=== PATIENT | male | born 1965 | race Hispanic/Latino ===

== ENCOUNTER 2022-01-05 19:39 | Observation (INO) | payer OTHER, SELFPAY ==
[2022-01-05] MEDS ORDERED: D10W 250 ML IV ONE (20:12)
[2022-01-05 20:29] LABS: Absolute Lymphocytes (CBC) 2.2 K/uL (0.7-4.9); Hematocrit 30.6 % (39.6-49.0); Lymphocytes % 35.1 % (15.3-44.8); MCV 90.3 fL (80-100); MPV 6.9 fL (7.6-11.3); RBC Red Blood Cell Count 3.38 M/uL (4.33-5.43)
[2022-01-05 20:30] LABS: Protime INR 0.96
[2022-01-05 20:44] LABS: ALT/SGPT 17 U/L (12-78); AST/SGOT 15 U/L (15-37); Albumin 3.6 g/dL (3.4-5.0); Alkaline Phosphatase 84 U/L (45-117); BUN Blood Urea Nitrogen 10 mg/dL (7-18); Bicarbonate 26 mmol/L (21-32); Bilirubin Total 0.2 mg/dL (0.2-1.0); Glomerular Filtration Rate 106 ml/min (=/>90); Glucose Level 64 mg/dL (74-106); Magnesium 2.5 mg/dL (1.8-2.4); NT PRO-BNP 250 pg/mL (<125); Potassium 4.1 mmol/L (3.5-5.1); Protein, Total 7.8 g/dL (6.4-8.2); Sodium Level 138 mmol/L (136-145); Troponin High Sensitivity 4.7 pg/mL (<58.9)
--- NOTE | 2022-01-05 20:46 | RAD REPORT ---
EXAM DESCRIPTION: Ike Single View01/05/2022 8:25 pm CLINICAL HISTORY: Dizziness COMPARISON: none FINDINGS: The lungs appear clear of acute infiltrate. The heart is borderline enlarged IMPRESSION: No acute abnormalities displayed
[2022-01-05 20:48] LABS: Bilirubin Direct < 0.1 mg/dL (0-0.2)
--- NOTE | 2022-01-05 20:48 | RAD REPORT ---
EXAM DESCRIPTION: CT - Head Brain Wo Cont - 01/05/2022 8:41 pm CLINICAL HISTORY: Dizziness COMPARISON: None TECHNIQUE: Computed axial tomography of the head was obtained. IV contrast was not requested. All CT scans are performed using dose optimization technique as appropriate and may include automated exposure control or mA/KV adjustment according to patient size. FINDINGS: An intracranial bleed is not seen . The ventricles are normal in caliber. No extra-axial fluid collection is noted. No significant hypodensity within the brain Fluid within the sinuses/ mastoids is not seen. IMPRESSION: No acute intracranial abnormality is seen. If patient's symptoms persist MRI of the bra in would be recommended.
[2022-01-05] MEDS ORDERED: MECLIZINE HCL 12.5 MG TAB ONE (21:25)
[2022-01-05] MEDS ORDERED: ONDANSETRON 4 MG/2 ML VIAL ONE (21:25)
[2022-01-05] MEDS ORDERED: NA CHLORIDE 0.9% 1,000 ML ONE (21:26)
--- NOTE | 2022-01-05 21:48 | RAD REPORT ---
EXAM DESCRIPTION: Samantha Angio01/05/2022 9:32 pm CLINICAL HISTORY: Dizziness COMPARISON: None TECHNIQUE: 50 cc Isovue 370 was administered intravenously. 3D MIP reconstruction performed All CT scans are performed using dose optimization technique as appropriate and may include automated exposure control or mA/KV adjustment according to patient size. FINDINGS: Calcified plaque distal left common carotid artery resulting in an approximately 40% sten osis Plaque cleft carotid bulb results in an approximately 40% stenosis Calcified plaque distal right common carotid artery results in an approximately 35% stenosis. Mild pl aque left carotid bulb. Mild calcified plaque external carotid arteries. Vertebral arteries are codominant. Mild plaque present No dissection seen IMPRESSION: Mild plaque within the carotid arteries NASCET criteria used. Mild 0-49% stenosis Moderate 50-69% stenosis Severe 70-99% stenosis
--- NOTE | 2022-01-05 21:55 | RAD REPORT ---
EXAM DESCRIPTION: CTHead angio01/05/2022 9:32 pm CLINICAL HISTORY: Dizziness COMPARISON: None TECHNIQUE: CT angiogram of the head was obtained. 3D MIPS reconstruction performed. All CT scans are performed using dose optimization technique as appropriate and may include automated exposure control or mA/KV adjustment according to patient size. FINDINGS: Marked calcified plaque within the distal right internal carotid artery. Moderate calcified plaque within distal left internal carotid artery Anterior cerebral, middle cerebral, posterior cerebral and basilar arteries appear unremarkable. An aneurysm not seen IMPRESSION: Marked calcified plaque distal right internal carotid artery Moderate calcified plaque distal left internal carotid artery
--- NOTE | 2022-01-05 22:50 | EDPHYS ---
Physician Documentation [facility] Name: Maxwell Rascon Age: 56 yrs Sex: Male : 1965 Arrival Date: 01/05/2022 Time: 19:46 Bed 8 Private MD: ED Physician Derrick Valdez HPI: 01/05 20:05 This 56 yrs old Male presents to ER via EMS with complaints of Dizziness. cp 20:05 The patient presents with dizziness, sense of spinning. cp 20:05 Onset: The symptoms/episode began/occurred about 1 hour ago. cp 20:05 Context: occurred at home, suddenly, just prior to the episode the patient experienced cp no apparent symptoms. 20:05 Patient's baseline: Neuro: alert and fully oriented, Motor: no deficits, Ambulation: cp walks with assist only, left lower leg prosthesis, Speech: normal. Patient Vietnamese speaking and family member translating. 20:05 Associated signs and symptoms: Pertinent positives: general weakness, Pertinent cp negatives: abdominal pain, chest pain, confusion, diaphoresis, focal weakness, headache, near-syncope, numbness, palpitations, syncope, vomiting. 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 - Social history:: Smoking status: Patient denies any tobacco usage or history of. ROS: 20:10 Constitutional: Negative for body aches, chills, fever, poor PO intake. cp 20:10 Eyes: Negative for injury, pain, redness, and discharge. cp 20:10 ENT: Negative for drainage from ear(s), ear pain, sore throat, difficulty swallowing, difficulty handling secretions. 20:10 Neck: Negative for pain with movement, pain at rest, stiffness. 20:10 Cardiovascular: Negative for chest pain, edema, palpitations. 20:10 Respiratory: Negative for cough, shortness of breath, wheezing. 20:10 Abdomen/GI: Negative for abdominal pain, vomiting, diarrhea, constipation, black/tarry stool, rectal bleeding. 20:10 Back: Negative for pain at rest, pain with movement. 20:10 : Negative for urinary symptoms. 20:10 Neuro: Positive for dizziness, general weakness, Negative for headache, numbness, speech changes, syncope, tingling. 20:10 All other systems are negative. Exam: 20:12 Constitutional: The patient appears in no acute distress, alert, awake, cp non-diaphoretic, non-toxic, well developed, well nourished. 20:12 Head/Face: Normocephalic, atraumatic. cp 20:12 Eyes: Periorbital structures: appear normal, Pupils: equal, round, and reactive to light and accomodation, Extraocular movements: intact throughout, Conjunctiva: normal, no exudate, no injection, Sclera: no appreciated abnormality, Lids and lashes: appear normal, bilaterally. 20:12 ENT: External ear(s): are unremarkable, Ear canal(s): are normal, TM's: dullness, bilaterally, Nose: is normal, Mouth: Lips: moist, Oral mucosa: pink and intact, moist, Posterior pharynx: Airway: no evidence of obstruction, patent. 20:12 Neck: ROM/movement: is normal, is supple, without pain, no range of motions limitations, no meningismus, no nuchal rigidity. 20:12 Chest/axilla: Inspection: normal, Palpation: is normal, no crepitus, no tenderness. 20:12 Cardiovascular: Rate: normal, Rhythm: regular, Edema: is not appreciated, JVD: is not appreciated. 20:12 Respiratory: the patient does not display signs of respiratory distress, Respirations: normal, no use of accessory muscles, no retractions, labored breathing, is not present, Breath sounds: are clear throughout, no decreased breath sounds, no stridor, no wheezing. 20:12 Abdomen/GI: Inspection: abdomen appears normal, Bowel sounds: active, all quadrants, Palpation: abdomen is soft and non-tender, in all quadrants. 20:12 Back: pain, is absent, ROM is normal. 20:12 Musculoskeletal/extremity: left below the knee amputation. 20:12 Skin: cellulitis, is not appreciated, no rash present. open wound noted to left lower leg amputation site with mild purulent drainage noted, no erythema, non-tender. 20:12 Neuro: Orientation: to person, place \\T\\ time. Mentation: is normal, Cerebellar function: Romberg testing is negative, Motor: moves all fours, general weakness with no focal deficits, Sensation: no obvious gross deficits. 20:32 ECG was reviewed by the Attending Physician. Vital Signs: 19:58 BP 186 / 89; Pulse 79; Resp 16; Temp 98.5(O); Pulse Ox 95% on R/A; Weight 72.57 kg (R); lp1 Height 5 ft. 9 in. (175.26 cm); Pain 0/10; 21:00 BP 121 / 69; Pulse 73; Resp 19; Pulse Ox 99% on R/A; lp1 22:03 Pulse 77; Resp 18; Pulse Ox 98% on R/A; kd3 22:05 BP 123 / 73; kd3 23:00 BP 112 / 67; Pulse 66; Resp 15; Pulse Ox 98% on R/A; lp1 01/06 00:00 BP 139 / 77; Pulse 69; Resp 20; Pulse Ox 100% on R/A; lp1 01:00 BP 115 / 65; Pulse 70; Resp 12; Pulse Ox 98% on R/A; lp1 01/05 19:58 Body Mass Index 23.63 (72.57 kg, 175.26 cm) lp1 NIH Stroke Scale Scores: 01/05 20:15 NIHSS Score: 0 cp MDM: 19:53 Patient medically screened. carolyn 21:00 Differential diagnosis: cardiac arrhythmia, generalized weakness, GI bleed, head cp injury, idiopathic dizziness, vertigo. 22:35 Data reviewed: vital signs, nurses notes, lab test result(s), EKG, radiologic studies, cp CT scan, plain films, I have discussed the patient's presentation/case with the attending Emergency Department Physician;. 22:35 Physician consultation: Roberth Bo MD was called at 22:35, was contacted at 22:35, regarding consult, patient's condition, does not recommend tpa. Recommends to admit for continued observation and MRI in morning. 22:45 Test interpretation: by ED physician or midlevel provider: ECG, plain radiologic cp studies. 22:45 Response to treatment: the patient's symptoms have mildly improved after treatment. Physician consultation: Hayder Khan was contacted at 22:45, regarding admission, to the telemetry unit. 01/05 20:04 Order name: Basic Metabolic Panel; Complete Time: 21:01 01/05 21:01 Interpretation: Normal except: GLUC 64. 01/05 20:04 Order name: CBC with Diff; Complete Time: 21:01 01/05 21:01 Interpretation: Normal except: RBC 3.38; HGB 10.5; HCT 30.6; MPV 6.9. 01/05 20:04 Order name: LFT's; Complete Time: 21: 01/05 20:04 Order name: Magnesium; Complete Time: 21: 01/05 20:04 Order name: NT PRO-BNP; Complete Time: 21: 01/05 20:04 Order name: PT-INR; Complete Time: 21: 01/05 20:04 Order name: Troponin HS; Complete Time: 21: 01/05 20:04 Order name: XRAY Chest (1 view); Complete Time: 21:01 01/05 20:04 Order name: CT Head Brain wo Cont; Complete Time: 21: 01/05 20:04 Order name: Urine Microscopic Only 01/05 20:09 Order name: Glucose, Ancillary Testing; Complete Time: 21:01 EDMS 01/05 20:42 Order name: Glucose, Ancillary Testing; Complete Time: 21:01 EDMS 01/05 22:51 Order name: Glucose, Ancillary Testing EDMS 01/05 23:01 Order name: COVID-19 SARS RT PCR (Document "Date of Onset" if Symptomatic) lp1 01/05 20:04 Order name: EKG; Complete Time: 20:05 01/05 20:04 Order name: Cardiac monitoring; Complete Time: 20:05 01/05 20:04 Order name: EKG - Nurse/Tech; Complete Time: 20:28 01/05 20:04 Order name: IV Saline Lock; Complete Time: 20:05 01/05 20:04 Order name: Labs collected and sent; Complete Time: 20:05 01/05 20:04 Order name: O2 Per Protocol; Complete Time: 20:05 01/05 20:04 Order name: O2 Sat Monitoring; Complete Time: 20:05 01/05 21:04 Order name: CT Head Angio; Complete Time: 22:28 01/05 21:04 Order name: CT Neck Angio; Complete Time: 22:28 cp 01/05 21:04 Order name: Wound dressing: left amputation site; Complete Time: 22:10 cp EC:32 Rate is 72 beats/min. Rhythm is regular. AR interval is prolonged at 220 msec. QRS cp interval is normal. QT interval is normal. T waves are Inverted in leads aVL, aVR. Interpreted by me. Reviewed by me. Administered Medications: 20:19 Drug: D50W 50 ml {Note: D10W is available.} Route: IVP; Site: right antecubital; lp1 21:12 Follow up: Response: Blood sugar is elevated lp1 21:24 Drug: Meclizine 25 mg Route: PO; lp1 22:28 Follow up: Response: No adverse reaction lp1 21:24 Not Given (Patient Refused): Zofran (Ondansetron) 4 mg IVP once; over 2 minutes lp1 21:58 Drug: NS 0.9% 500 ml Route: IV; Rate: bolus; Site: right antecubital; lp1 22:27 Follow up: IV Status: Completed infusion; IV Intake: 500ml lp1 22:28 Drug: NS 0.9% 500 ml Route: IV; Rate: 100 ml/hr; Site: right antecubital; lp1 01/06 01:40 Follow up: IV Status: Infusion continued upon admission lp1 01/05 23:02 Drug: foLIC Acid 1 mg Route: IVPB; Site: right antecubital; lp1 23:40 Follow up: IV Status: Completed infusion; IV Intake: 50ml lp1 23:02 Drug: Aspirin 81 mg Route: PO; lp1 01/06 00:17 Follow up: Response: No adverse reaction lp1 Point of Care Testing: Blood Glucose: 01/05 20:01 Blood Glucose: 65 mg/dL; lp1 Ranges: Critical Glucose Levels:Adult <50 mg/dl or >400 mg/dl <40 mg/dl or >180 mg/dl Disposition Summary: 01/05/22 22:50 Hospitalization Ordered Hospitalization Status: Observation cp Provider: Maycol Serrano cp Location: Telemetry/MedSurg (observation) cp Condition: Stable cp Problem: new cp Symptoms: are unchanged cp Bed/Room Type: Standard cp Room Assignment: 214(01/06/22 00:47) cg Diagnosis - Dizziness and giddiness cp Forms: - Medication Reconciliation Form cp - SBAR form cp NIH Stroke Scale - NIH Stroke Score Date: 01/05/2022 Time: 20:15 Total Score = 0 1a. Level of Consciousness (LOC) - 0(Alert) 1b. Level of Consciousness (LOC) (Month \\T\\ Age) - 0(Both) 1c. LOC Commands (Open \\T\\ Closes Eyes/Tire Mold Tester) - 0(Both) 2. Best Gaze (Lateral Gaze Paresis) - 0(Normal) 3. Visual Field Loss - 0(No visual loss) 4. Facial Palsy - 0(Normal) 5a. Left Arm: Motor (10-second hold) - 0(No drift) 5b. Right Arm: Motor (10-second hold) - 0(No drift) 6a. Left Leg: Motor (5-second hold - always test supine) - 0(No drift) 6b. Right Leg: Motor (5-second hold - always test supine) - 0(No drift) 7. Limb Ataxia (finger/nose \\T\\ heel/aug[place] - test with eyes open) - 0(Absent) 8. Sensory Loss (pinprick arms/legs/face) - 0(Normal) 9. Best Language: Aphasia (description/naming/reading) - 0(No aphasia) 10. Dysarthria (speech clarity - read or repeat words) - 0(Normal) 11. Extinction and Inattention (visual/tactile/auditory/spatial/personal) - 0(No abnormality) Initials: cp Signatures: Dispatcher [employer] EDDerrick Perkins MD MD cha Pena, Laura, RN RN lp1 Derrick Montiel PA PA Cielo Keita, KAREY RN cg Corrections: (The following items were deleted from the chart) 01/06 00:47 01/05 22:50 cp cg 01/06 19:27 01/05 22:30 Physician consultation: Roberth Bo MD was called at 22:30, was cp contacted at 22:30, regarding consult, patient's condition, does not recommend tpa. Recommends to admit for continued observation and MRI in morning, cp
--- NOTE | 2022-01-05 22:50 | ER ---
Nurse's Notes [facility] Name: Maxwell Rascon Age: 56 yrs Sex: Male : 1965 Arrival Date: 01/05/2022 Time: 19:46 Bed 8 Private MD: Diagnosis: Dizziness and giddiness Presentation: 01/05 19:58 Chief complaint: EMS states: Called for patient with onset of dizziness about 45 min lp1 ago; Denies chest pain, shortness of breath, N/V. Onset of symptoms was January 05, 2022. Care prior to arrival: IV initiated. 20 GA, in the right antecubital area, Glucose check: 105. 19:58 Acuity: DANIEL 3 lp1 19:58 Method Of Arrival: EMS: [facility] lp1 20:00 Coronavirus screen: At this time, the client does not indicate any symptoms associated lp1 with coronavirus-19. 20:00 Ebola Screen: No symptoms or risks identified at this time. Initial Sepsis Screen: Does lp1 the patient meet any 2 criteria? No. Patient's initial sepsis screen is negative. Does the patient have a suspected source of infection? No. Patient's initial sepsis screen is negative. Risk Assessment: Do you want to hurt yourself or someone else? Patient reports no desire to harm self or others. 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 - Social history:: Smoking status: Patient denies any tobacco usage or history of. Screenin:15 Abuse screen: Denies threats or abuse. Denies injuries from another. Nutritional lp1 screening: No deficits noted. Tuberculosis screening: No symptoms or risk factors identified. Fall Risk Total Sorto Fall Scale indicates High Risk Score (45 or more points). Fall prevention measures have been instituted. Side Rails Up X 2 As available patient and family educated on Fall Prevention Program and Strategies. Assessment: 20:00 General: Appears in no apparent distress. Behavior is calm, cooperative. Pain: Denies lp1 pain. Neuro: Level of Consciousness is awake, alert, obeys commands, Oriented to person, place, time, situation, Patient is primarily cape verdean speaking . Reports dizziness, since 1 hour ago. Cardiovascular: Patient's skin is warm and dry. Respiratory: Respiratory effort is even, unlabored. GI: Patient currently denies nausea. : No signs and/or symptoms were reported regarding the genitourinary system. EENT: No signs and/or symptoms were reported regarding the EENT system. Derm: Skin is pink, warm \T\ dry. Musculoskeletal: Amputation of L BKA. 20:57 Reassessment: Patient appears in no apparent distress at this time. Patient is alert, lp1 oriented x 3, equal unlabored respirations, skin warm/dry/pink. 22:11 Reassessment: Patient appears in no apparent distress at this time. Patient is alert, lp1 oriented x 3, equal unlabored respirations, skin warm/dry/pink. Patient reports slight dizziness continued Patient denies pain at this time. GI: Patient currently denies nausea. 01/06 00:00 Reassessment: Patient appears in no apparent distress at this time. Patient is alert, lp1 oriented x 3, equal unlabored respirations, skin warm/dry/pink. Patient given sandwich per request. Vital Signs: 01/05 19:58 BP 186 / 89; Pulse 79; Resp 16; Temp 98.5(O); Pulse Ox 95% on R/A; Weight 72.57 kg (R); lp1 Height 5 ft. 9 in. (175.26 cm); Pain 0/10; 21:00 BP 121 / 69; Pulse 73; Resp 19; Pulse Ox 99% on R/A; lp1 22:03 Pulse 77; Resp 18; Pulse Ox 98% on R/A; kd3 22:05 BP 123 / 73; kd3 23:00 BP 112 / 67; Pulse 66; Resp 15; Pulse Ox 98% on R/A; lp1 01/06 00:00 BP 139 / 77; Pulse 69; Resp 20; Pulse Ox 100% on R/A; lp1 01:00 BP 115 / 65; Pulse 70; Resp 12; Pulse Ox 98% on R/A; lp1 01/05 19:58 Body Mass Index 23.63 (72.57 kg, 175.26 cm) lp1 NIH Stroke Scale Scores: 01/05 20:15 NIHSS Score: 0 cp ED Course: 19:46 Patient arrived in ED. mw2 19:51 Derrick Montiel PA is PHCP. cp 19:51 Derrick Valdez MD is Attending Physician. cp 19:58 Guerline Middleton, KAREY is Primary Nurse. lp1 20:00 Triage completed. lp1 20:00 Arm band placed on right wrist. lp1 20:00 Patient has correct armband on for positive identification. Placed in gown. Bed in low lp1 position. Call light in reach. Client placed on continuous cardiac and pulse oximetry monitoring. NIBP monitoring applied. 20:00 Maintain EMS IV. Dressing intact. Good blood return noted. Site clean \T\ dry. Gauge \T\ lp 1 site: 20 g to R AC. 20:25 XRAY Chest (1 view) In Process Unspecified. EDMS 20:42 CT Head Brain wo Cont In Process Unspecified. EDMS 21:34 CT Head Angio In Process Unspecified. EDMS 21:34 CT Neck Angio In Process Unspecified. EDMS 22:10 Wound care: to L BKA site located on left leg was irrigated with normal saline, dressed lp1 with 4x4's, kerlix, LYN bandage . 22:49 Maycol Serrano MD is Hospitalizing Provider. cp 23:00 No provider procedures requiring assistance completed. Patient admitted, IV remains in lp1 place. 23:09 COVID swab sent to lab. lp1 Administered Medications: 20:19 Drug: D50W 50 ml {Note: D10W is available.} Route: IVP; Site: right antecubital; lp1 21:12 Follow up: Response: Blood sugar is elevated lp1 21:24 Drug: Meclizine 25 mg Route: PO; lp1 22:28 Follow up: Response: No adverse reaction lp1 21:24 Not Given (Patient Refused): Zofran (Ondansetron) 4 mg IVP once; over 2 minutes lp1 21:58 Drug: NS 0.9% 500 ml Route: IV; Rate: bolus; Site: right antecubital; lp1 22:27 Follow up: IV Status: Completed infusion; IV Intake: 500ml lp1 22:28 Drug: NS 0.9% 500 ml Route: IV; Rate: 100 ml/hr; Site: right antecubital; lp1 01/06 01:40 Follow up: IV Status: Infusion continued upon admission lp1 01/05 23:02 Drug: foLIC Acid 1 mg Route: IVPB; Site: right antecubital; lp1 23:40 Follow up: IV Status: Completed infusion; IV Intake: 50ml lp1 23:02 Drug: Aspirin 81 mg Route: PO; lp1 01/06 00:17 Follow up: Response: No adverse reaction lp1 Medication: 01/05 20:57 VIS not applicable for this client. lp1 Point of Care Testing: Blood Glucose: 20:01 Blood Glucose: 65 mg/dL; lp1 Ranges: Intake: 22:27 IV: 500ml; Total: 500ml. lp1 23:40 IV: 50ml; Total: 550ml. lp1 Outcome: 22:50 Decision to Hospitalize by Provider. cp 23:01 Condition: stable lp1 23:01 Instructed on the need for admit. 01/06 01:25 Admitted to Med/surg room 214, with chart, Report called to KAREY Shah lp1 01:40 Patient left the ED. lp1 NIH Stroke Scale - NIH Stroke Score Date: 01/05/2022 Time: 20:15 Total Score = 0 1a. Level of Consciousness (LOC) - 0(Alert) 1b. Level of Consciousness (LOC) (Month \T\ Age) - 0(Both) 1c. LOC Commands (Open \T\ Closes Eyes/Apparel Merchandiser) - 0(Both) 2. Best Gaze (Lateral Gaze Paresis) - 0(Normal) 3. Visual Field Loss - 0(No visual loss) 4. Facial Palsy - 0(Normal) 5a. Left Arm: Motor (10-second hold) - 0(No drift) 5b. Right Arm: Motor (10-second hold) - 0(No drift) 6a. Left Leg: Motor (5-second hold - always test supine) - 0(No drift) 6b. Right Leg: Motor (5-second hold - always test supine) - 0(No drift) 7. Limb Ataxia (finger/nose \T\ heel/[place] - test with eyes open) - 0(Absent) 8. Sensory Loss (pinprick arms/legs/face) - 0(Normal) 9. Best Language: Aphasia (description/naming/reading) - 0(No aphasia) 10. Dysarthria (speech clarity - read or repeat words) - 0(Normal) 11. Extinction and Inattention (visual/tactile/auditory/spatial/personal) - 0(No abnormality) Initials: cp Signatures: Dispatcher [employer] Guerline Pereyra RN RN lp1 Derrick Montiel PA PA cp [place], MyKena mw2 Farrah Guillen RN RN kd3
[2022-01-05] MEDS ORDERED: ASPIRIN 81 MG CHEWABLE TABLET ONE (23:03)
[2022-01-05] MEDS ORDERED: FOLIC ACID 5 MG/ML VIAL ONE (23:04)
[2022-01-05] MEDS ORDERED: NA CHLORIDE 0.9% 50 ML ONE (23:04)
--- NOTE | 2022-01-06 00:29 | P.HP ---
Certification for Inpatient Patient admitted to: Observation With expected LOS: <2 Midnights Patient will require the following post-hospital care: None Practitioner: I am a practitioner with admitting privileges, knowledge of patient current condition, hospital course, and medical plan of care. Services: Services provided to patient in accordance with Admission requirements found in Title 42 Section 412.3 of the Code of Federal Regulations <Hayder Khan - Last Filed: 01/06/22 00:22> Patient History Date of Service: 01/06/22 Reason for admission: Dizziness History of Present Illness: 56-year-old male with history of insulin-dependent diabetes, hyperlipidemia, hypertension with left BKA presents the emergency department for dizziness. He reports that his symptoms began around 1900 this evening while he was gathering his belongings in preparation for a physician appointment tomorrow morning, he reports feeling "dizzy" denies sensation of room spinning, nausea, vomiting. His labs were significant for mild normocytic anemia mild hyperglycemia initial glucose of 64 which was treated and has improved he had CT of the head without contrast which was negative for acute findings chest x-ray was unremarkable CTA of the neck demonstrated mild plaque within the carotid arteries CTA of the head revealed marked calcified plaque distal right internal carotid artery moderate calcified plaque distal left internal carotid artery. Patient with no focal neurological deficits at this time he did have a few beats of left beating horizontal nystagmus. He was scheduled to have his stump revised at [facility] at 5 AM this morning, wound to the left lower extremity without surrounding cellulitis, purulent drainage. ED provider discussed case with neurology who recommends patient be admitted to the hospital service and MRI is obtained to rule out CVA. - Past Medical/Surgical History -: Diabetes mellitus type 2insulin-dependent -: Hypertension -: Hyperlipidemia -: Left BKA Psychosocial/ Personal History: Patient is disabled, lives at home with his family - Family History Father -: Diabetes Mother -: Diabetes - Social History Smoking Status: Never smoker Alcohol use: No CD- Drugs: No Caffeine use: Yes Place of Residence: Home <Hayder Khan - Last Filed: 01/06/22 00:22> Date of Service: 01/06/22 <Maycol Serrano - Last Filed: 01/06/22 12:57> Review of Systems 10-point ROS is otherwise unremarkable Neurological: Other (Dizziness), As per HPI <Hayder Khan - Last Filed: 01/06/22 00:22> Physical Examination - Physical Exam General: Alert, In no apparent distress, Oriented x3 HEENT: Atraumatic, PERRLA, Mucous membr. moist/pink, EOMI, Sclerae nonicteric Neck: Supple, 2+ carotid pulse no bruit Respiratory: Clear to auscultation bilaterally, Normal air movement Cardiovascular: Regular rate/rhythm, Normal S1 S2 Capillary refill: <2 Seconds Gastrointestinal: Normal bowel sounds, No tenderness Musculoskeletal: No tenderness, Other (Left BKA) Integumentary: No rashes, Other (Open wound to left BKA site without surrounding cellulitis/erythema/purulent drainage) Neurological: Normal speech, Normal strength at 5/5 x4 extr, Normal tone, Sensation intact, Cranial nerves 3-12 intact, Normal affect - Studies Laboratory Data (last 24 hrs) 01/05/22 19:53: PT 10.6, INR 0.96 01/05/22 19:53: WBC 6.3, Hgb 10.5 L, Hct 30.6 L, Plt Count 327 01/05/22 19:53: Sodium 138, Potassium 4.1, BUN 10, Creatinine 0.74, Glucose 64 L, Magnesium 2.5 H, Total Bilirubin 0.2, AST 15, ALT 17, Alkaline Phosphatase 84 <Hayder Khan - Last Filed: 01/06/22 00:22> - Studies Laboratory Data (last 24 hrs) 01/05/22 19:53: PT 10.6, INR 0.96 01/05/22 19:53: WBC 6.3, Hgb 10.5 L, Hct 30.6 L, Plt Count 327 01/05/22 19:53: Sodium 138, Potassium 4.1, BUN 10, Creatinine 0.74, Glucose 64 L, Magnesium 2.5 H, Total Bilirubin 0.2, AST 15, ALT 17, Alkaline Phosphatase 84 <Maycol Serrano - Last Filed: 01/06/22 12:57> Assessment and Plan - Plan Assessment: Dizziness-rule out CVA Diabetes mellitus type 2insulin-dependent with hypoglycemia Hyperlipidemia Hypertension 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 No focal neurological deficits noted patient with sensation of dizziness, few beats of left beating nystagmus on exam. CTA of the head did demonstrate marked stenosis of the distal right internal carotid artery although there are no focal neurological deficits or CT/MRI evidence of CVA at this time. ED provider discussed case with neurology who recommended MRI. Diabetes mellitus type 2insulin-dependent with hypoglycemia: Patient was treated for low blood sugar of 64 in the ED will encourage him to eat hold off on sliding scale at this time. Patient reports that he only takes his metformin or 70/30 insulin when his blood sugar is high, counseled patient on need to take metformin daily rather than as needed. Hyperlipidemia: Patient unaware of what medications he takes at home, will initiate the atorvastatin until home medications have been verified. Hypertension: Patient unaware of what his home medications are, we will restart when verified. 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 Fuller at [facility]. Family calling to reschedule his procedure, wound appears without acute complications at this time recommend follow-up on outpatient basis. DVT PPX: Lovenox Code status: Full Discharge Plan: Home Plan to discharge in: 24 Hours - Advance Directives Does patient have a Living Will: No Does patient have a Durable POA for Healthcare: No - Code Status/Comfort Care Code Status Assessed: Yes (Full code) Critical Care: No Time Spent Managing Pts Care (In Minutes): 70 <Hayder Khan - Last Filed: 01/06/22 00:22> Physician Review Additional Text: I have personally seen and evaluated Mr. Maxwell Rascon. I reviewed the notes and assessments performed by Hayder Khan NP. I independently performed my own history and physical examination. I agree with the assessment and plan as outlined in his note. I concur with his documentation of Mr. Rascon. <Maycol Serrano - Last Filed: 01/06/22 12:57>
[2022-01-06] MEDS ORDERED: ONDANSETRON 4 MG/2 ML VIAL IV PRN (01:26)
[2022-01-06 01:58] VITALS: BMI 23.6
[2022-01-06 02:02] VITALS: TEMP 97.3
[2022-01-06 02:48] VITALS: O2SAT 98
[2022-01-06 04:39] LABS: Hematocrit 30.2 % (39.6-49.0); Lymphocytes % 35.9 % (15.3-44.8); MCV 92.3 fL (80-100); MPV 6.9 fL (7.6-11.3); RBC Red Blood Cell Count 3.27 M/uL (4.33-5.43)
[2022-01-06 05:02] LABS: Albumin 3.1 g/dL (3.4-5.0); Bilirubin Total 0.2 mg/dL (0.2-1.0); Magnesium 2.4 mg/dL (1.8-2.4); Potassium 4.1 mmol/L (3.5-5.1); Protein, Total 6.9 g/dL (6.4-8.2); Troponin High Sensitivity 6.4 pg/mL (<58.9)
[2022-01-06] MEDS: INSULIN -REGULAR HUMAN 50 UNIT/0.5 ML ML SQ SCH ×2 (07:30→11:30)
[2022-01-06] MEDS ORDERED: ASPIRIN EC 81 MG TAB PO SCH (09:00)
[2022-01-06] MEDS ORDERED: FOLIC ACID 1 MG TABLET PO SCH (09:00)
[2022-01-06] MEDS ORDERED: ENOXAPARIN 40 MG/0.4 ML SQ SCH (09:00)
[2022-01-06] MEDS ORDERED: PNEUMOCOCCAL VACCINE 0.5 ML IMVAC ONE (09:00)
--- NOTE | 2022-01-06 09:05 | RAD REPORT ---
EXAM DESCRIPTION: MRI - Brain W/Wo Cont - 01/06/2022 8:25 am CLINICAL HISTORY: dizziness Headache, CVA symptomology COMPARISON: MRA Head Wo Cont dated 01/06/2022; MRA Neck W/Wo Cont dated 01/06/2022; Head angio dated 01/05; Neck Angio dated 01/05/2022; Head Brain Wo Cont dated 01/05/2022 TECHNIQUE: Multi-sequence, multiplanar MR imaging of the brain was performed with contrast. FINDINGS: No intracranial hemorrhage, hydrocephalus, or extra-axial fluid collection.Mild brain atro phy. No edema or shift of midline structures. No intracranial mass. DWI is negative for acute CVA. The midline structures are normally formed. Mastoid air cells and paranasal sinuses are clear. Post-contrast images show no abnormal enhancement to suggest tumor or infection. IMPRESSION: Negative for acute CVA or other acute intracranial process. No pathologic post-contrast enhancement suspected.
--- NOTE | 2022-01-06 09:05 | RAD REPORT ---
EXAM DESCRIPTION: MRI - MRA Head Wo Cont - 01/06/2022 8:25 am CLINICAL HISTORY: dizziness CVA COMPARISON: Head angio dated 01/05/2022 FINDINGS: 3D noncontrast [id number] MR angiography of the [place] was performed. No aneurysm, flow-limiting stenosis or vascular malformation is seen. No large vessel occlusion ident ified. Forward flow seen in codominant vertebral arteries. The visualized dural venous sinuses appear patent. IMPRESSION: No significant flow abnormality of the [place] is identified.
--- NOTE | 2022-01-06 09:07 | RAD REPORT ---
EXAM DESCRIPTION: MRI - MRA Neck W/Wo Cont - 01/06/2022 8:24 am CLINICAL HISTORY: dizziness Headache, drowsiness, dizziness COMPARISON: Neck Angio dated 01/05/2022 FINDINGS: Contrast enhance 2D [id number] MR angiography of the neck vessels was performed. A left aortic arch is present. Normal branching pattern of the great vessels is noted. Stenosis is present involving the right carotid bulb estimated at 50-60% based on NASCET criteria. Stenosis involving the left carotid bulb is estimated at less than 50% based on NASCET criteria. Antegrade flow is seen in both vertebral arteries which appear largely codominant. IMPRESSION: Mild stenosis involving both carotid bulbs as detailed.
--- NOTE | 2022-01-06 10:43 | P.DS ---
Admission Date: 01/06/22 Discharge Date: 01/06/22 Disposition: ROUTINE DISCHARGE Discharge Condition: GOOD Reason for Admission: Dizziness Consultations: 1. Neurology Hospital Course: DIAGNOSES: # Bilateral Carotid Artery Stenosis # Suspect Benign Positional Paroxysmal Vertigo # Insulin-Dependent Diabetes Mellitus # Hypertension # Hyperlipidemia # S/P Left BKA with chronic wound HOSPITAL COURSE: Mr. Maxwell Rascon is a pleasant 56 year old male with a past medical history significant for insulin-dependent diabetes, hyperlipidemia, hypertension s/p left BKA who was admitted to the [facility] on 01/06/2022 for dizziness. Upon presentation, his vital signs and laboratory studies were fairly unremarkable. He was admitted to exclude cerebrovascular accident as the etiology of his dizziness. CT head revealed, "no acute intracranial abnormality is seen. If patient's symptoms persist MRI of the brain would be recommended." CT angiogram of the head revealed, "marked calcified plaque distal right internal carotid artery. Moderate calcified plaque distal left internal carotid artery." CT angiogram of the neck revealed, "mild plaque within the carotid arteries." MRI brain revealed, "negative for acute CVA or other acute intracranial process. No pathologic post-contrast enhancement suspected." MR angiogram of the brain revealed, "no significant flow abnormality of the [place] is identified. MR angiogram of the neck revealed, "mild stenosis involving both carotid bulbs as detailed." Although horizontal nystagmus was reported by the admitting provider, this was not appreciated on my examination this morning. Neurology was consulted and I spoke with Dr. Bo. He feels that the symptoms are likely peripheral in nature as the neurologic imaging is not suggestive of a central etiology of dizziness. He has cleared him for discharge and will have him follow-up in his clinic in 1 to 2 weeks. On 01/06/2022, he was seen on morning rounds and deemed medically stable for discharge. He was discharged on aspirin and atorvastatin. He was discharged with instructions to schedule follow-up appointments with his PCP in 3-5 days and with Neurology in 1-2 weeks. He and his family members were given the opportunity to ask questions and reported no further questions. Furthermore, all questions were answered to the best of my ability. Today, I personally spent 25 minutes with him, of which greater than 50% of the time was spent in patient education, counseling, and coordination of care as described above. Vital Signs/Physical Exam: Temp Pulse Resp BP Pulse Ox 97.3 F 63 18 173/80 H 100 01/06/22 08:00 01/06/22 08:00 01/06/22 08:00 01/06/22 08:00 01/06/22 08:00 General: Alert, In no apparent distress, Oriented x3 HEENT: Atraumatic Neck: Supple, Without JVD or thyroid abnormality Respiratory: Clear to auscultation bilaterally, Normal air movement Cardiovascular: Regular rate/rhythm, Normal S1 S2, No gallops, No rubs, No murmurs Gastrointestinal: Normal bowel sounds, Soft and benign, No tenderness, No rebound, No guarding Musculoskeletal: Other (s/p left BKA) Integumentary: Other (chronic wound on BKA stump. Small wound with granulation tissue noted.) Neurological: Normal speech, Normal strength at 5/5 x4 extr, Normal tone, Sensation intact, Cranial nerves 3-12 intact, Normal affect Laboratory Data at Discharge: WBC 5.5 K/uL (4.3-10.9) 01/06/22 04:18 Hgb 10.2 g/dL (13.6-17.9) L 01/06/22 04:18 Hct 30.2 % (39.6-49.0) L 01/06/22 04:18 Plt Count 306 K/uL (152-406) 01/06/22 04:18 PT 10.6 SECONDS (9.5-12.5) 01/05/22 19:53 INR 0.96 01/05/22 19:53 Sodium 135 mmol/L (136-145) L 01/06/22 04:18 Potassium 4.1 mmol/L (3.5-5.1) 01/06/22 04:18 BUN 9 mg/dL (7-18) 01/06/22 04:18 Creatinine 0.76 mg/dL (0.55-1.3) 01/06/22 04:18 Glucose 194 mg/dL (74-106) H 01/06/22 04:18 Magnesium 2.4 mg/dL (1.8-2.4) 01/06/22 04:18 Total Bilirubin 0.2 mg/dL (0.2-1.0) 01/06/22 04:18 AST 11 U/L (15-37) L 01/06/22 04:18 ALT 14 U/L (12-78) 01/06/22 04:18 Alkaline Phosphatase 82 U/L (45-117) 01/06/22 04:18 Home Medications: Aspirin [Aspirin EC 81 MG] 81 mg PO DAILY #30 tablet. 01/06/22 Atorvastatin Calcium [Lipitor] 40 mg PO BEDTIME #30 tab 01/06/22 New Medications: Aspirin [Aspirin EC 81 MG] 81 mg PO DAILY #30 tablet. Atorvastatin Calcium [Lipitor] 40 mg PO BEDTIME #30 tab Physician Discharge Instructions: 1. Please schedule follow-up with your PCP in 3-5 days 2. Please schedule follow-up with Neurology in 5-7 days Followup: Roberth Bo MD [ASSOCIATE-ACTIVE - CAN ADMIT] - Jerry Patrick MD [Primary Care Provider] -
[2022-01-06 13:24] VITALS: BP 167/93
[2022-01-06] MEDS ORDERED: ATORVASTATIN 40 MG TAB PO SCH (21:00)
--- NOTE | 2022-01-09 13:59 | EKG ---
Test Date: 2022-01-05 Test Time: 20:27:25 Primary Teaching Assistant: DREW MEASUREMENT RESULTS: Intervals: Rate: 72 MA: 220 QRSD: 94 QT: 418 QTc: 457 [place]: P: 74 MA: 220 QRS: 63 T: 78 INTERPRETIVE STATEMENTS: Sinus rhythm with 1st degree AV block Otherwise normal ECG No previous ECG available for comparison Electronically Signed On 01-09-22 13:51:42 CDT by David Jeronimo
--- NOTE | 2022-01-12 07:02 | EEG ---
CHART: [id number] TEST ID#: [id number] DATE OF STUDY: 01/06/2022 THE EEG WAS RECORDED PORTABLE IN THE PATIENT'S ROOM ON A 17 CHANNEL MACHINE. ELECTRODES WERE APPLIED IN THE USUAL MANNER USING THE INTERNATIONAL 10-20 SYSTEM. THE WAKING BACKGROUND RHYTHM IN THIS RECORD CONSISTS OF VERY WELL DEVELOPED AND WELL ORGANIZED WAVES OF 10 HZ., MAXIMAL IN THE POSTERIOR HEAD REGIONS WHICH ATTENUATE NORMALLY WITH EYE OPENING. LOW-VOLTAGE 18-22 HZ ACTIVITY IS EXPRESSED IN THE FRONTAL REGIONS. THERE ARE NO FOCAL OR LATERALIZING FEATURES. NO EPILEPTIFORM ACTIVITY APPEARS. SLEEP OCCURRED NATURALLY. IN ADDITION TO NORMAL SLEEP PATTERNS ARE PRESENT. HYPERVENTILATION WAS NOT PERFORMED. PHOTIC STIMULATION PRODUCED FAIR DRIVING BILATERALLY. IMPRESSION: NORMAL EEG FOR THE AGE OF THE PATIENT IN [place], DROWSINESS AND SLEEP.
== END 2022-01-06 14:50 | disposition home or self-care (01) ==
LOC: ER 19:39 → ERHOLD 01-06 00:29 → 2ND 01-06 01:24
PROVIDERS: ADMIT Internal Medicine; ATTEND Internal Medicine
DX: R42 Dizziness and giddiness (principal); I65.23 Occlusion and stenosis of bilateral carotid arteries; E11.649 Type 2 diabetes mellitus with hypoglycemia without coma; I10 Essential (primary) hypertension; E78.5 Hyperlipidemia, unspecified; S81.002A Unspecified open wound, left knee, initial encounter; Z89.512 Acquired absence of left leg below knee; Z23 Encounter for immunization; Z20.822 Contact with and (suspected) exposure to COVID-19; Z79.4 Long term (current) use of insulin
CPT/HCPCS: 96365; 96361; 93005; 95819; 85025 ×2; 80048; 36415; 83735 ×2; 85610; 82947 ×6; 80076; 84484 ×3; 80053; 83880; 70450; 70496; 70498; 71045; 90471; 70553; 70544; 70549; 90732; 96375; 99285; U0003; Q9967; A9577; J8597; J1650; J7030; G0378 ×2; J2405

== ENCOUNTER 2022-05-13 23:49 | Observation (INO) | payer OTHER ==
--- OUTSIDE RECORDS SUMMARY | 2022-05-14 00:36 | XMS REPORT | Continuity of Care Document ---
:1965 Author Organization [facility] t Address [address] [place] [address] Dr. Ven[address]. [address] [place] [address] Care Team Providers Name Role Phone PCP, PATIENT DOES NOT HAVE A Primary Care Physician UnavailISRAEL Awan Attending Clinician Unavailable Manan EDEN, María Attending Clinician Unavailable Paulo GRIMES, Shankar Dueñas Attending Clinician Cris Ramirez MD Attending Clinician Dimitrios Ray MD Attending Clinician Maikel Hays MD Attending Clinician Ashtyn Pedersen MD Attending Clinician Holger Gray MD Attending Clinician Malick Terry MD Attending Clinician Shankar Oreilly CRNA Attending Clinician Art Terry MD Attending Clinician [phone] JERONIMO HA Attending Clinician Unavailable Dilcia GRIMES, Jeronimo Calderon Attending Clinician [phone] Israel Singletary MD Attending Clinician Eden Fuller MD Attending Clinician EDEN FULLER Attending Clinician Unavailable Doctor Unassigned, [place] Attending Clinician Unavailable Muna Solo RN Attending Clinician Unavailable Only, Ang Db Test Attending Clinician Unavailable Olimpia Bhardwaj MD Attending Clinician OLIMPIA BHARDWAJ Attending Clinician Unavailable CelinaJohnpeyton Mike Attending Clinician JERRICA PEOPLES Attending Clinician Unavailable Shelton GRIMES, Jerrica Mauricio Attending Clinician Jeff EDEN, Sindhu Attending Clinician Unavailable Felicita Bartholomew MD Attending Clinician Suzette Jolley RN Attending Clinician Unavailable KEISHA MENG Attending Clinician Unavailable Green ASSISTANT GM OF CONTENT & DELIVERY, Keisha Attending Clinician [facility], [facility] Attending Clinician Unavailable Kanu Balbuena MD Attending Clinician KANU BALBUENA Attending Clinician Unavailable FELICITA MALIK Attending Clinician Unavailable Felicita Malik DO Attending Clinician Nurse, Adc Pob Immunization Attending Clinician Unavailable Jeronimo Daley DO Attending Clinician JERONIMO DALEY Attending Clinician Unavailable Unknown, Attending Attending Clinician Unavailable UNKNOWN, ATTENDING Attending Clinician Unavailable Jp Quinteros RN Attending Clinician Unavailable MICKIE BRAND Attending Clinician Unavailable ISRAEL SINGLETARY Admitting Clinician Unavailable DIMITRIOS RAY Admitting Clinician Unavailable EDEN FULLER Admitting Clinician Unavailable Eden Fuller MD Admitting Clinician JERONIMO HA Admitting Clinician Unavailable JERRICA PEOPLES Admitting Clinician Unavailable Israel Singletary MD Admitting Clinician Payers Payer Name Policy Type Policy Number Effective Date Expiration Date S Counts include 234 beds at the [facility] [id number] 2021 CHOICE 00:00:00 HIM BCBS BLUE [id number] 2020 ADVANTAGE HMO 00:00:00 MEDICAID 365 [id number] 2020 2020 VENDOR 00:00:00 00:00:00 Problems Condition Condition Condition Status Onset Resolution Last Treating Co mments Source Name Details Category Date Date Treatment Clinician Date 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 Added automatic ally from request for surgery [id number] BKA stump BKA stump Disease Active Uni vers complicati complicati 02-20 it y of on on 00:00: [address] Diabetic Diabetic Disease Active Unive rs foot foot 11-05 ity of infection infection 00:: [address] Burn Burn Disease Active 2019-07 Univers 08-29 ity of 00:00: [address] [place] [address] Allergies, Adverse Reactions, Alerts Allergy Allergy Status Severity Reaction(s) Onset Inactive Treating Comm ents Source Name Type Date Date Clinician NO KNOWN Drug Active Univers ALLERGIE Class ity of S [facility] Social History Social Habit Start Date Stop Date Quantity Comments Source History of tobacco Current smoker Un iversity of use [facility] Alcohol intake 2022-04-14 2022-04-14 Current drinker Metho dist 00:00:00 00:00:00 of [facility] (finding) Alcohol Comment 2022-03-30 2022-03-30 On the weekends Meth odist 00:00:00 00:00:00 Hospital Tobacco use and 2022-03-30 2022-03-30 Smokeless [facility] exposure 00:00:00 00:00:00 tobacco non-user Hospital Exposure to 2022-03-12 2022-03-22 Not sure University of SARS-CoV-2 (event) 00:00:00 12:17:00 [facility] Cigarettes smoked 2022-02-03 2022-02-03 Univers ity of current (pack per 00:00:00 00:00:00 [facility]) - Reported Branch Cigarette 2022-02-03 2022-02-03 University of pack-years 00:00:00 00:00:00 [facility] History SDOH 2020-06-28 2020-06-28 5 University o f Alcohol Frequency 00:00:00 00:00:00 [facility] History [facility] 2020-06-28 2020-06-28 1 University o Alcohol Std Drinks 00:00:00 00:00:00 [place] [facility] History [facility] 2020-06-28 2020-06-28 2 [place] o Alcohol Binge 00:00:00 00:00:00 [place] [facility] Education 2020-06-28 2020-06-28 12 [place] [facility] 00:00:00 00:00:00 [place] [facility] History [facility] 2020-06-28 2020-06-28 1 [place] o Financial 00:00:00 00:00:00 [place] [facility] History [facility] Food 2020-06-28 2020-06-28 1 Univers ity of Worry 00:00:00 00:00:00 [place] [facility] History [facility] Food 2020-06-28 2020-06-28 1 Univers ity of Scarcity 00:00:00 00:00:00 [place] [facility] History [facility] 2020-06-28 2020-06-28 2 [place] o Transport Med 00:00:00 00:00:00 [place] [facility] History [facility] 2020-06-28 2020-06-28 2 [place] [facility] Transport Non-Med 00:00:00 00:00:00 [facility] Sex [facility]igned At [birth year] [facility] 00:[facility]:00 [facility]:00 Hospital Smoking Status Start Date Stop Date Source Never smoked tobacco [facility] Ex-smoker 2022-02-21 00:00:00 2022-02-21 [place] [facility] 00:00:00 Medical Branch Occasional tobacco 2022-02-03 00:00:00 [facility] smoker Medical Branch Medications Ordered Filled Start Stop Current Ordering Indication Dosage Frequency Signature Comments Components Source Medication Medication Date Date Medication? Clinician (SIG) Name Name metFORMIN 2021-07 Yes 850mg Q.5D Take 1 Metho di (GLUCOPHAGE 0-[address] ) 850 mg 15:26: (850 mg Hospit a tablet 01 total) by l mouth 2 (two) times a day with meals. ascorbic 2021-07 Yes 500mg QD Take 1 Method i acid, 0-[address] vitamin C, 15:26: (500 mg Hosp meme (VITAMIN C) 01 total) by l 500 MG mouth tablet daily. cyanocobala 2021-07 Yes 1{tbl} QD Take 1 Me thodi min, 0-[address] vitamin 15:26: mouth Hospita B-12, 01 daily. l (VITAMIN B-12 ORAL) cholecalcif 2021-07 Yes 1{tbl} QD Take 1 Me thodi val, 0-[address] vitamin D3, 15:26: mouth Hospi ta (VITAMIN D3 01 daily. l ORAL) ferrous 2021-07 Yes 325mg QD Take 1 Methodi sulfate 325 0-[address] (65 FE) MG 15:26: (325 mg Hosp meme tablet 01 total) by l mouth daily with breakfast. atorvastati 2021-07 Yes 40mg QD Take 1 Meth ubaldo n (LIPITOR) 0-19 tablet (40 st 40 mg 15:26: mg total) Hospita tablet 01 by mouth l nightly. insulin 2021-07 Yes 4U Q.5D Inject 4-8 Meth ubaldo 70/30 NPH 0-[address] and regular 15:26: under the H ospita human 01 skin 2 l (HumuLIN (two) 70/30) 100 times a unit/mL day before (70-30) meals. injection metFORMIN 2021-07- No 1000mg Q.5D Take 1 Met hodi (GLUCOPHAGE 0-19 09-[address] ) 1,000 mg 15:26: 00:00 (1,000 mg H ospita tablet 01 :00 total) by l mouth 2 (two) times a day with meals. HYDROcodone 2021-07 Yes 1{tbl} Q4H Take 1 M ethodi -acetaminop 0-[address] hen (NORCO) 00:00: mouth Hospi ta 10-325 mg 00 every 4 l per tablet (four) hours as needed for severe pain .acute pain. Max Daily Amount: 6 tablets metoprolol 2021-07- Yes 12.5mg Q.5D Take 0.5 Methodi tartrate 0-18 11-[address] (LOPRESSOR) 00:00: 05:59 (12.5 mg H ospita 25 mg 00 :00 total) by l tablet mouth 2 (two) times a day for 30 days. cefepime 2021-07- Yes 1g Q8H Infuse 1 g Me thodi (MAXIPIME) 0-18 11-[address] 1 gram in 00:00: 05:59 venous Hospi ta 50 mL 00 :00 catheter l Mini-Bag every 8 Plus (eight) hours for 28 days. silver 2021- No [id number] 1{appli 1 Un annabel nitrate 03-23 cator} Applicator ity of applicator 00:30: 18:15 , Topical, [place] 1 00 :00 ONCE, 1 Medical Applicator dose, On [facility] 03/22/22 at 1930, Routine morpHINE (4 2021- Yes 4mg 4 mg, Slow Univers mg/mL) 02-24 IV Push, ity of injection 4 17:00: 04:59 [place]CE[place] 1 [place] mg 00 :[place] dose, On Medical Fri Branch 02/24/22 at 1200, Routine, DSU Recovery morpHINE (4 2021- No 4mg 4 mg, Slow Univers mg/mL) 02-24 IV Push, ity of injection 4 17:00: 19:00 [place]CE, 1 [place] mg 00 :01 dose, On Medical Fri Branch 02/24/22 at 1200, Routine, DSU Recovery HYDROcodone Yes 1{tbl} 1 tablet, Univers -acetaminop 02-24 Oral, PRN, it y of hen (NORCO 16:23: 1 dose, [place] 5) 5-325 mg 00 Starting Medi alexis tablet 1 on Fri Branch tablet 02/24/22 at 1123, Until Discontinu ed, Routine, Pain (scale 4-6), DSU Recovery acetaminoph Yes 650mg 650 mg, Un annabel en 02-24 Oral, PRN, ity of (TYLENOL) 16:23: 1 dose, [place] tablet 650 00 Starting Medic al mg on Fri Branch 02/24/22 at 1123, Until Discontinu ed, Routine, Pain (scale 1-3), DSU Recovery HYDROcodone 2021- No 1{tbl} 1 tablet, Univers -acetaminop 02-24 Oral, PRN, i ty of hen (NORCO 16:23: 19:00 1 dose, [place] as 5) 5-325 mg 00 :01 Starting Medi alexis tablet 1 on Fri Branch tablet 02/24/22 at 1123, Until 02/24/22 at 1400, Routine, Pain (scale 4-6), DSU Recovery acetaminoph 2021-0 2021- No 650mg 650 mg, U nivers en 02-24 Oral, PRN, ity of (TYLENOL) 16:23: 19:00 1 dose, [place] tablet 650 00 :01 Starting Medic al mg on Fri Branch 02/24/22 at 1123, Until Sun02/24/22 at 1400, Routine, Pain (scale 1-3), DSU Recovery lactated 2021-0 Yes 1000mL at 75 Univer s ringers IV 8-26 mL/hr, ity of infusion 16:15: 1,000 mL[place] 1,000 mL 00 IV Medical Infusion, Branch CONTINUOUS , Starting on Sun02/24/22 at 1115, Until Discontinu ed, Routine, PACU lactated 2021-0 2021- No 1000mL at 75 Unive rs ringers IV 02-24 mL/hr, ity of infusion 16:15: 19:00 1,000 mL, [place] as 1,000 mL 00 :01 IV Medical Infusion, Branch CONTINUOUS , Starting on Sun02/24/22 at 1115, Until Sun02/24/22 at 1400, Routine, PACU HYDROmorphO 2021-0 Yes .2mg 0.2 mg, Uni vers ne 02-24 Slow IV ity of (DILAUDID) 16:07: Push, [place] injection 33 Q5MIN PRN, Medi alexis 0.2 mg 10 doses, Branch Starting on Sun02/24/22 at 1107, Until Discontinu ed, Routine, Pain (scale 7-10), PACU
Us e approved by (Faculty): PACU USE -ANESTHESI A SERVICE-HY DROMORPHON E INJECTIONS FENTanyl PF Yes 25ug 25 mcg, Uni vers (SUBLIMAZE 02-24 Slow IV ity of (PF)) 16:07: Push, [place] injection 33 Q5MIN PRN, Medi alexis 25 mcg 4 doses, Branch Starting on Sun02/24/22 at 1107, Until Discontinu ed, Routine, Pain (scale 4-6), PACU HYDROmorphO 0 2021- No .2mg 0.2 mg, Un annabel ne 02-24 Slow IV ity of (DILAUDID) 16:07: 19:00 Push, [place] injection 33 :01 Q5MIN PRN, Medi alexis 0.2 mg 10 doses, Branch Starting on Sun02/24/22 at 1107, Until Sun02/24/22 at 1400, Routine, Pain (scale 7-10), PACU
Us e approved by (Faculty): PACU USE -ANESTHESI A SERVICE-HY DROMORPHON E INJECTIONS FENTanyl PF 2021- No 25ug 25 mcg, Un annabel (SUBLIMAZE 02-24 Slow IV ity o f (PF)) 16:07: 19:00 Push, [place] injection 33 :01 Q5MIN PRN, Medi alexis 25 mcg 4 doses, Branch Starting on Sun02/24/22 at 1107, Until Sun02/24/22 at 1400, Routine, Pain (scale 4-6), PACU EPINEPHrine 2021- No PRN, Unive rs (For 02-24 Starting ity of Irrigation 15:36: 16:54 on Sun s Only) 00 :04 02/24/22 at Medical syringe 1036, Branch Until Sun02/24/22 at 1154, Routine, Intra-op metFORMIN 0 Yes 1000mg Take 1,000 Univers 1,000 mg 8-26 mg by ity of tablet 11:54: mouth 2 [place] 53 (two) Medical times Branch daily with meals. atorvastati Yes 40mg Take 40 mg Univers n 40 mg 8-26 by mouth ity of tablet 11:54: at [place] 53 bedtime. Medical Branch aspirin 325 Yes 325mg Take 325 U nivers mg tablet 8-26 mg by ity of 11:54: mouth [place] 53 daily. Medical Branch ascorbic 0 Yes 1{capsu Take 1 Univ ers acid 8-26 le} capsule by ity of (VITAMIN C 11:54: mouth [place] ORAL) 53 daily. Medical Branch cyanocobala Yes 1{capsu Take 1 U nivers min, 8-26 le} capsule by ity of vitamin 11:54: mouth [place] B-12, 53 daily. Medical (VITAMIN Branch B-12 ORAL) metFORMIN Yes 1000mg Take 1,000 Univers 1,000 mg 8-26 mg by ity of tablet 11:54: mouth 2 [place] 53 (two) Medical times Branch daily with meals. atorvastati Yes 40mg Take 40 mg Univers n 40 mg 8-26 by mouth ity of tablet 11:54: at [place] 53 bedtime. Medical Branch aspirin 325 Yes 325mg Take 325 U nivers mg tablet 8-26 mg by ity of 11:54: mouth [place] 53 daily. Medical Branch ascorbic Yes 1{capsu Take 1 Univ ers acid 8-26 le} capsule by ity of (VITAMIN C 11:54: mouth [place] ORAL) 53 daily. Medical Branch cyanocobala Yes 1{capsu Take 1 U nivers min, 8-26 le} capsule by ity of vitamin 11:54: mouth [place] B-12, 53 daily. Medical (VITAMIN Branch B-12 ORAL) metFORMIN Yes 1000mg Take 1,000 Univers 1,000 mg 8-26 mg by ity of tablet 11:54: mouth 2 [place] 53 (two) Medical times Branch daily with meals. atorvastati Yes 40mg Take 40 mg Univers n 40 mg 8-26 by mouth ity of tablet 11:54: at [place] 53 bedtime. Medical Branch aspirin 325 Yes 325mg Take 325 U nivers mg tablet 8-26 mg by ity of 11:54: mouth [place] 53 daily. Medical Branch ascorbic Yes 1{capsu Take 1 Univ ers acid 8-26 le} capsule by ity of (VITAMIN C 11:54: mouth [place] ORAL) 53 daily. Medical Branch cyanocobala Yes 1{capsu Take 1 U nivers min, 8-26 le} capsule by ity of vitamin 11:54: mouth [place] B-12, 53 daily. Medical (VITAMIN Branch B-12 ORAL) metFORMIN Yes 1000mg Take 1,000 Univers 1,000 mg 8-26 mg by ity of tablet 11:54: mouth 2 [place] 53 (two) Medical times Branch daily with meals. atorvastati Yes 40mg Take 40 mg Univers n 40 mg 8-26 by mouth ity of tablet 11:54: at [place] 53 bedtime. Medical Branch aspirin 325 Yes 325mg Take 325 U nivers mg tablet 8-26 mg by ity of 11:54: mouth [place] 53 daily. Medical Branch ascorbic Yes 1{capsu Take 1 Univ ers acid 8-26 le} capsule by ity of (VITAMIN C 11:54: mouth [place] ORAL) 53 daily. Medical Branch cyanocobala Yes 1{capsu Take 1 U nivers min, 8-26 le} capsule by ity of vitamin 11:54: mouth [place] B-12, 53 daily. Medical (VITAMIN Branch B-12 ORAL) metFORMIN Yes 1000mg Take 1,000 Univers 1,000 mg 8-26 mg by ity of tablet 11:54: mouth 2 [place] 53 (two) Medical times Branch daily with meals. atorvastati Yes 40mg Take 40 mg Univers n 40 mg 8-26 by mouth ity of tablet 11:54: at [place] 53 bedtime. Medical Branch aspirin 325 Yes 325mg Take 325 U nivers mg tablet 8-26 mg by ity of 11:54: mouth [place] 53 daily. Medical Branch ascorbic Yes 1{capsu Take 1 Univ ers acid 8-26 le} capsule by ity of (VITAMIN C 11:54: mouth [place] ORAL) 53 daily. Medical Branch cyanocobala Yes 1{capsu Take 1 U nivers min, 8-26 le} capsule by ity of vitamin 11:54: mouth [place] B-12, 53 daily. Medical (VITAMIN Branch B-12 ORAL) metFORMIN Yes 1000mg Take 1,000 Univers 1,000 mg 8-26 mg by ity of tablet 11:54: mouth 2 [place] 53 (two) Medical times Branch daily with meals. atorvastati Yes 40mg Take 40 mg Univers n 40 mg 8-26 by mouth ity of tablet 11:54: at [place] 53 bedtime. Medical Branch aspirin 325 Yes 325mg Take 325 U nivers mg tablet 8-26 mg by ity of 11:54: mouth [place] 53 daily. Medical Branch ascorbic Yes 1{capsu Take 1 Univ ers acid 8-26 le} capsule by ity of (VITAMIN C 11:54: mouth [place] ORAL) 53 daily. Medical Branch cyanocobala 2022-0 Yes 1{capsu Take 1 U nivers min, 8-26 le} capsule by ity of vitamin 11:54: mouth [place] B-12, 53 daily. Medical (VITAMIN Branch B-12 ORAL) metFORMIN Yes 1000mg Take 1,000 Univers 1,000 mg 8-26 mg by ity of tablet 11:54: mouth 2 [place] 53 (two) Medical times Branch daily with meals. atorvastati Yes 40mg Take 40 mg Univers n 40 mg 8-26 by mouth ity of tablet 11:54: at [place] 53 bedtime. Medical Branch aspirin 325 Yes 325mg Take 325 U nivers mg tablet 8-26 mg by ity of 11:54: mouth [place] 53 daily. Medical Branch ascorbic Yes 1{capsu Take 1 Univ ers acid 8-26 le} capsule by ity of (VITAMIN C 11:54: mouth [place] ORAL) 53 daily. Medical Branch cyanocobala Yes 1{capsu Take 1 U nivers min, 8-26 le} capsule by ity of vitamin 11:54: mouth [place] B-12, 53 daily. Medical (VITAMIN Branch B-12 ORAL) HYDROcodone 2021- Yes [id number] 1{tbl} Take 1 U nivers -acetaminop 8-26 09-03 tablet by it y of hen 5-325 00:00: 04:59 mouth [place] mg tablet 00 :00 every 6 Medical (six) Branch hours as needed for Pain (scale 4-6) for up to 7 days. Indication s: acute pain HYDROcodone 2021- Yes 4647 1{tbl} Take 1 U nivers -acetaminop 8-26 09-03 tablet by it y of hen 5-325 00:00: 04:59 mouth [place] mg tablet 00 :00 every 6 Medical (six) Branch hours as needed for Pain (scale 4-6) for up to 7 days. Indication s: acute pain HYDROcodone 2021- Yes 4647 1{tbl} Take 1 U nivers -acetaminop 8-26 09-03 tablet by it y of hen 5-325 00:00: 04:59 mouth [place] mg tablet 00 :00 every 6 Medical (six) Branch hours as needed for Pain (scale 4-6) for up to 7 days. Indication s: acute pain HYDROcodone 2021- Yes 4647 1{tbl} Take 1 U nivers -acetaminop 8-27 03-03 tablet by it y of hen 5-325 00:00: 04:59 mouth [place] mg tablet 00 :00 every 6 Medical (six) Branch hours as needed for Pain (scale 4-6) for up to 7 days. Indication s: acute pain HYDROcodone 2021- No 4647 1{tbl} Take 1 U nivers -acetaminop 8-27 03- tablet by it y of hen 5-325 00:00: 04:59 mouth [place] mg tablet 00 :00 every 6 Medical (six) Branch hours as needed for Pain (scale 4-6) for up to 7 days. Indication s: acute pain metFORMIN Yes 1000mg Take 1,000 Univers 1,000 mg 8-23 mg by ity of tablet 11:51: mouth 2 [place] 18 (two) Medical times Branch daily with meals. atorvastati Yes 40mg Take 40 mg Univers n 40 mg 8-23 by mouth ity of tablet 11:51: at [place] 18 bedtime. Medical Branch aspirin 325 Yes 325mg Take 325 U nivers mg tablet 8-23 mg by ity of 11:51: mouth [place] 18 daily. Medical Branch ascorbic Yes 1{capsu Take 1 Univ ers acid 8-23 le} capsule by ity of (VITAMIN C 11:51: mouth [place] ORAL) 18 daily. Medical Branch cyanocobala Yes 1{capsu Take 1 U nivers min, 8-23 le} capsule by ity of vitamin 11:51: mouth [place] B-12, 18 daily. Medical (VITAMIN Branch B-12 ORAL) metFORMIN Yes 1000mg Take 1,000 Univers 1,000 mg 8-23 mg by ity of tablet 11:51: mouth 2 [place] 18 (two) Medical times Branch daily with meals. atorvastati 0 Yes 40mg Take 40 mg Univers n 40 mg 8-23 by mouth ity of tablet 11:51: at [place] 18 bedtime. Medical Branch aspirin 325 0 Yes 325mg Take 325 U nivers mg tablet 8-23 mg by ity of 11:51: mouth [place] 18 daily. Medical Branch metFORMIN Yes 1000mg Take 1,000 Univers 1,000 mg 8-23 mg by ity of tablet 11:51: mouth 2 [place] 18 (two) Medical times Branch daily with meals. atorvastati Yes 40mg Take 40 mg Univers n 40 mg 8-23 by mouth ity of tablet 11:51: at [place] 18 bedtime. Medical Branch aspirin 325 Yes 325mg Take 325 U nivers mg tablet 8-23 mg by ity of 11:51: mouth [place] 18 daily. Medical Branch ascorbic Yes 1{capsu Take 1 Univ ers acid 8-23 le} capsule by ity of (VITAMIN C 11:51: mouth [place] ORAL) 18 daily. Medical Branch cyanocobala Yes 1{capsu Take 1 U nivers min, 8-23 le} capsule by ity of vitamin 11:51: mouth [place] B-12, 18 daily. Medical (VITAMIN Branch B-12 ORAL) metFORMIN Yes 1000mg Take 1,000 Univers 1,000 mg 8-23 mg by ity of tablet 11:51: mouth 2 [place] 18 (two) Medical times Branch daily with meals. atorvastati Yes 40mg Take 40 mg Univers n 40 mg 8-23 by mouth ity of tablet 11:51: at [place] 18 bedtime. Medical Branch aspirin 325 Yes 325mg Take 325 U nivers mg tablet 8-23 mg by ity of 11:51: mouth [place] 18 daily. Medical Branch ascorbic Yes 1{capsu Take 1 Univ ers acid 8-23 le} capsule by ity of (VITAMIN C 11:51: mouth [place] ORAL) 18 daily. Medical Branch cyanocobala Yes 1{capsu Take 1 U nivers min, 8-23 le} capsule by ity of vitamin 11:51: mouth [place] B-12, 18 daily. Medical (VITAMIN Branch B-12 ORAL) metFORMIN Yes 1000mg Take 1,000 Univers 1,000 mg 7-14 mg by ity of tablet 17:20: mouth 2 [place] 36 (two) Medical times Branch daily with meals. atorvastati Yes 40mg Take 40 mg Univers n (LIPITOR) 7-14 by mouth ity of 40 mg 17:20: at [place] tablet 36 bedtime. Medical Branch aspirin 325 0 Yes 325mg Take 325 U nivers mg tablet 7-14 mg by ity of 17:20: mouth [place] 36 daily. Medical Branch metFORMIN 0 Yes 1000mg Take 1,000 Univers 1,000 mg 7-14 mg by ity of tablet 17:20: mouth 2 [place] 36 (two) Medical times Branch daily with meals. atorvastati 0 Yes 40mg Take 40 mg Univers n (LIPITOR) 7-14 by mouth ity of 40 mg 17:20: at [place] tablet 36 bedtime. Medical Branch aspirin 325 0 Yes 325mg Take 325 U nivers mg tablet 7-14 mg by ity of 17:20: mouth [place] 36 daily. Medical Branch metFORMIN 0 Yes 1000mg Take 1,000 Univers 1,000 mg 7-14 mg by ity of tablet 17:20: mouth 2 [place] 36 (two) Medical times Branch daily with meals. atorvastati Yes 40mg Take 40 mg Univers n (LIPITOR) 7-14 by mouth ity of 40 mg 17:20: at [place] tablet 36 bedtime. Medical Branch aspirin 325 0 Yes 325mg Take 325 U nivers mg tablet 7-14 mg by ity of 17:20: mouth [place] 36 daily. Medical Branch metFORMIN 0 Yes 1000mg Take 1,000 Univers 1,000 mg 7-14 mg by ity of tablet 17:20: mouth 2 [place] 36 (two) Medical times Branch daily with meals. atorvastati Yes 40mg Take 40 mg Univers n (LIPITOR) 7-14 by mouth ity of 40 mg 17:20: at [place] tablet 36 bedtime. Medical Branch aspirin 325 0 Yes 325mg Take 325 U nivers mg tablet 7-14 mg by ity of 17:20: mouth [place] 36 daily. Medical Branch metFORMIN 0 Yes 1000mg Take 1,000 Univers 1,000 mg 7-14 mg by ity of tablet 17:20: mouth 2 [place] 36 (two) Medical times Branch daily with meals. atorvastati 0 Yes 40mg Take 40 mg Univers n (LIPITOR) 7-14 by mouth ity of 40 mg 17:20: at [place] tablet 36 bedtime. Medical Branch aspirin 325 0 Yes 325mg Take 325 U nivers mg tablet 7-14 mg by ity of 17:20: mouth [place] 36 daily. Medical Branch metFORMIN 0 Yes 1000mg Take 1,000 Univers 1,000 mg 7-14 mg by ity of tablet 17:20: mouth 2 [place] 36 (two) Medical times Branch daily with meals. atorvastati Yes 40mg Take 40 mg Univers n (LIPITOR) 7-14 by mouth ity of 40 mg 17:20: at [place] tablet 36 bedtime. Medical Branch aspirin 325 0 Yes 325mg Take 325 U nivers mg tablet 7-14 mg by ity of 17:20: mouth [place] 36 daily. Medical Branch metFORMIN 0 Yes 1000mg Take 1,000 Univers 1,000 mg 7-14 mg by ity of tablet 17:20: mouth 2 [place] 36 (two) Medical times Branch daily with meals. atorvastati Yes 40mg Take 40 mg Univers n (LIPITOR) 7-14 by mouth ity of 40 mg 17:20: at [place] tablet 36 bedtime. Medical Branch aspirin 325 0 Yes 325mg Take 325 U nivers mg tablet 7-14 mg by ity of 17:20: mouth [place] 36 daily. Medical Branch metFORMIN 0 Yes 1000mg Take 1,000 Univers 1,000 mg 7-14 mg by ity of tablet 17:20: mouth 2 [place] 36 (two) Medical times Branch daily with meals. atorvastati Yes 40mg Take 40 mg Univers n (LIPITOR) 7-14 by mouth ity of 40 mg 17:20: at [place] tablet 36 bedtime. Medical Branch aspirin 325 0 Yes 325mg Take 325 U nivers mg tablet 7-14 mg by ity of 17:20: mouth [place] 36 daily. Medical Branch metFORMIN 0 Yes 1000mg Take 1,000 Univers 1,000 mg 7-14 mg by ity of tablet 17:20: mouth 2 [place] 36 (two) Medical times Branch daily with meals. atorvastati 0 Yes 40mg Take 40 mg Univers n (LIPITOR) 7-14 by mouth ity of 40 mg 17:20: at [place] tablet 36 bedtime. Medical Branch aspirin 325 0 Yes 325mg Take 325 U nivers mg tablet 7-14 mg by ity of 17:20: mouth [place] 36 daily. Medical Branch metFORMIN Yes 1000mg Take 1,000 Univers 1,000 mg 7-14 mg by ity of tablet 17:20: mouth 2 [place] 36 (two) Medical times Branch daily with meals. atorvastati Yes 40mg Take 40 mg Univers n (LIPITOR) 7-14 by mouth ity of 40 mg 17:20: at [place] tablet 36 bedtime. Medical Branch aspirin 325 0 Yes 325mg Take 325 U nivers mg tablet 7-14 mg by ity of 17:20: mouth [place] 36 daily. Medical Branch HYDROcodone Yes 1{tbl} 1 tablet, Univers -acetaminop 7-14 Oral, PRN, it y of hen (NORCO) 15:10: 1 dose, [place]el[place] 10-325 mg 52 Starting Medica l tablet 1 on [facility] Branch tablet 01/12/22 at 1010, Until Discontinu ed, Routine, Pain (scale 4-6), [facility] HYDROcodone 2021- No 1{tbl} 1 tablet, Univers -acetaminop 7-14 07-15 Oral, PRN, i ty of hen (NORCO) 15:10: 00:25 1 [place], [place] 10-325 mg 52 :42 Starting Medica l tablet 1 on [facility] Branch tablet 01/12/22 at 1010, Until Nath[place]ie 01/12/22 at 1925, Routine, Pain (scale 4-6), [facility] HYDROcodone Yes 1{tbl} 1 tablet, Univers -acetaminop 7-14 Oral, PRN, it y of hen (NOR[place] 15:10: 1 dose, [place] 5) 5-325 mg 46 Starting Medi alexis tablet 1 on [place] Branch tablet 01/12/22 at 1010, Until Discontinu ed, Routine, Pain (scale 1-3), [facility] HYDROcodone 2021- No 1{tbl} 1 tablet, Univers -acetaminop 7-14 07-15 Oral, PRN, i ty of hen (NORCO 15:10: 00:25 1 dose, [place] 5) 5-325 mg 46 :42 Starting Medi alexis tablet 1 on [place] Branch tablet 01/12/22 at 1010, Until [place] 01/12/22 at 1925, Routine, Pain (scale 1-3), [facility] HYDROmorphO 2021-0 Yes .2mg 0.2 mg, Uni vers ne 7-14 Slow IV ity of (DILAUDID) 14:43: Push, [place] injection 28 Q5MIN PRN, Medi alexis 0.2 mg 10 doses, Branch Starting on Nathalie 01/12/22 at 0943, Until Discontinu ed, Routine, Pain (scale 7-10), 0.2 mg IV every 5min. x 10, PRN for Severe Pain., PACU
Us e approved by (Faculty): PACU USE -ANESTHESI A SERVICE-HY DROMORPHON E INJECTIONS FENTanyl PF 2021-0 Yes 25ug 25 mcg, Uni vers (SUBLIMAZE 01-12 Slow IV ity of (PF)) 14:43: Push, [place] injection 28 Q5MIN PRN, Medi alexis 25 mcg 4 doses, Branch Starting on Nathalie 01/12/22 at 0943, Until Discontinu ed, Routine, Pain (scale 4-6), PACU ondansetron 2021-0 Yes 4mg 4 mg, Slow Univers (ZOFRAN 01-12 IV Push, ity of (PF)) 14:43: PRN, 1 [place] injection 4 28 dose, Medical mg Starting Branch on Nathalie 01/12/22 at 0943, Until Discontinu ed, Routine, Nausea and Vomiting (N/V), PACU HYDROmorphO 2021-0 2021- No .2mg 0.2 mg, Un annabel ne 14 07-15 Slow IV ity of (DILAUDID) 14:43: 00:25 Push, [place] injection 28 :42 Q5MIN PRN, Medi alexis 0.2 mg 10 doses, Branch Starting on Nathalie 01/12/22 at 0943, Until [place]ie 01/12/22 at 1925, Routine, Pain (scale 7-10), 0.2 mg IV every 5min. x 10, PRN for Severe Pain., PACU
Us e approved by (Faculty): PACU USE -ANESTHESI A SERVICE-HY DROMORPHON E INJECTIONS FENTanyl PF 2021-0 2022- No 25ug 25 mcg, Un annabel (SUBLIMAZE 01-12 Slow IV ity o f (PF)) 14:43: 00:25 Push, [place] injection 28 :42 Q5MIN PRN, Medi alexis 25 mcg 4 doses, Branch Starting on Nathalie 01/12/22 at 0943, Until [place] 01/12/22 at 1925, Routine, Pain (scale 4-6), PACU ondansetron 2021- No 4mg 4 mg, Slow Univers (ZOFRAN 01-12 IV Push, ity of (PF)) 14:43: 00:25 PRN, 1 [place] injection 4 28 :42 dose, Medical mg Starting Branch on Nathalie 01/12/22 at 0943, Until [place] 01/12/22 at 1925, Routine, Nausea and Vomiting (N/V), PACU lidocaine-e 2021- No PRN, Unive rs pinephrine 01-12 Starting ity of (XYLOCAINE 14:28: 15:17 on [place] W/EPINEPHRI 00 :17 01/12/22 at Ri dicpa NE) 1 0928, Branch %-1:200,000 Until [place] injection 01/12/22 at 1017, Routine, Intra-op PHENYLephri 2021- No Slow IV Un annabel ne 1000 01-12 Push, ONCE ity o f mcg/10 mL 14:20: 15:02 INTRA [place] in 0.9% 00 :45 PROCEDURE, Medica l NaCl Starting Branch syringe on Nathalie 01/12/22 at 0920, Until [place] 01/12/22 at 1002, Routine, Intra-op ketorolac 2021- No Slow IV Univ ers (TORADOL) 01-12 Push, ONCE ity of injection 13:50: 14:59 INTRA [place] 00 :54 PROCEDURE, Medical Starting Branch on Nathalie 01/12/22 at 0850, Until [place] 01/12/22 at 0959, Routine, Intra-op ondansetron 2021- No Slow IV Un annabel (ZOFRAN 01-12 Push, ONCE ity o f (PF)) 13:50: 14:59 INTRA [place] injection 00 :54 PROCEDURE, Medi alexis Starting Branch on Nathalie 01/12/22 at 0850, Until [place] 01/12/22 at 0959, Routine, Intra-op ceFAZolin 2021- No IV Univers (ANCEF) 01-12 Piggyback, ity o f injection 12:37: 14:59 ONCE INTRA [place] 00 :54 PROCEDURE, Medical Starting Branch on Nathalie 01/12/22 at 0737, Until [place]ie 01/12/22 at 0959, FUNMI, Intra-op FENTanyl PF 2021- No Intravenou Univers (SUBLIMAZE 01-12 s, ONCE ity o f (PF)) 12:36: 14:59 INTRA [place] injection 00 :54 PROCEDURE, Medi alexis Starting Branch on Nathalie 01/12/22 at 0736, Until [place] 01/12/22 at 0959, Routine, Intra-op ePHEDrine 2021- No Slow IV Univ ers 25 mg/5 mL 01-12 Push, ONCE it y of (5 mg/mL) 12:33: 14:59 INTRA [place] syringe 00 :54 PROCEDURE, Medica l Starting Branch on Nathalie 01/12/22 at 0733, Until [place]ie 01/12/22 at 0959, Routine, Intra-op propofoL IV 2021- No Intravenou Univers infusion 01-12 s, ONCE ity of 12:26: 14:59 INTRA [place] 00 :54 PROCEDURE, Medical Starting Branch on Nathalie 01/12/22 at 0726, Until [place] 01/12/22 at 0959, Routine, Intra-op lidocaine 2021- No Intravenou U nivers 1% 01-12 s, ONCE ity of (XYLOCAINE) 12:26: 14:59 INTRA [place] 100 mg/10 00 :54 PROCEDURE, Medi alexis mL (1 %) Starting Branch injection on Nathalie 01/12/22 at 0726, Until [place]ie 01/12/22 at 0959, Routine, Intra-op midazolam 2021- No IV Push, Uni vers (VERSED) 01-12 ONCE INTRA ity of injection 12:20: 14:59 PROCEDURE, [place] 00 :54 Starting Medical on [place] Branch 01/12/22 at 0720, Until [place] 01/12/22 at 0959, Routine, Intra-op lactated IV Univers ringers IV 01-12 Infusion, ity of infusion 12:15: 14:59 CONTINUOUS [place] 00 :54 PRN, Medical Starting Branch on Nathalie 01/12/22 at 0715, Until [place] 01/12/22 at 0959, Routine, Intra-op HYDROcodone 2021- No 4647 1{tbl} Take 1 U nivers -acetaminop -01-20 tablet by it y of hen ([employer]) 00:00: 04:59 mouth [place] 5-325 mg 00 :00 every 6 Medical tablet (six) Branch hours as needed for Pain (scale 7-10) for up to 7 days. Indication s: acute pain HYDROcodone 2021- No 4647 1{tbl} Take 1 U nivers -acetaminop -01-20 tablet by it y of hen ([employer]) 00:00: 04:59 mouth [place] 5-325 mg 00 :00 every 6 Medical tablet (six) Branch hours as needed for Pain (scale 7-10) for up to 7 days. Indication s: acute pain HYDROcodone 2021- No 4647 1{tbl} Take 1 U nivers -acetaminop -01-20 tablet by it y of hen ([employer]) 00:00: 04:59 mouth [place] 5-325 mg 00 :00 every 6 Medical tablet (six) Branch hours as needed for Pain (scale 7-10) for up to 7 days. Indication s: acute pain ibuprofen 2021-2021- No [id number] 800mg Take 1 Univers 800 mg -12 01- tablet by ity of tablet 00:00: 00:00 mouth [place] 00 :00 every 6 Medical (six) Branch hours for 14 days. ibuprofen 2021-2021- No [id number] 800mg Take 1 Univers 800 mg 7-12 01- tablet by ity of tablet 00:00: 00:00 mouth [place] 00 :00 every 6 Medical (six) Branch hours for 14 days. metFORMIN 2021- Yes 1000mg Take 1,000 Univers 1,000 mg 6-30 mg by ity of tablet 12:00: mouth 2 [place] 17 (two) Medical times Branch daily with meals. metFORMIN 202-0 Yes 1000mg Take 1,000 Univers 1,000 mg 6-30 mg by ity of tablet 12:00: mouth 2 [place] 17 (two) Medical times Branch daily with meals. metFORMIN 202-0 Yes 1000mg Take 1,000 Univers 1,000 mg 6-30 mg by ity of tablet 12:00: mouth 2 [place] [address] (two) Medical times [place] daily with meals. silver 2021- No 1{appli 1 Univers nitrate 5-09 05-09 cator} Applicator ity of applicator 19:15: 18:30 , Topical, [place] 1 00 :00 ONCE, 1 Medical Applicator dose, On Bran h 11/07/21 at 1415, Routine silver 2020-07- No 1{appli 1 Univers nitrate 2-14 12-14 cator} Applicator ity of applicator 20:00: 19:00 , Topical, [place] 1 00 :00 ONCE, 1 Medical Applicator dose, On Bran h 06/14/21 at 1400, Routine silver 2020-07- No 1{appli 1 Univers nitrate 1-05 11-05 cator} Applicator ity of applicator 19:30: 18:20 , Topical, [place] 1 00 :00 ONCE, 1 Medical Applicator dose, On Bran h 05/06/21 at 1430, Routine silver 2020-07- No 1{appli 1 Univers nitrate 0-06 10-06 cator} Applicator ity of applicator 19:30: 18:00 , Topical, [place] 1 00 :00 ONCE, 1 Medical Applicator dose, On Bran h 04/06/21 at 1430, Routine mupirocin 2 2020-07 Yes [id number] Apply to Univers % ointment 0-06 area(s) 3 ity of 00:00: (three) [place] 00 times Medical daily. Branch mupirocin 2 2020-07 Yes [id number] Apply to Univers % ointment 0-06 area(s) 3 ity of 00:00: (three) [place] 00 times Medical daily. Branch mupirocin 2 2020-07 Yes [id number] Apply to Univers % ointment 0-06 area(s) 3 ity of 00:00: (three) [place] 00 times Medical daily. Branch mupirocin 2 2020-07 Yes [id number] Apply to Univers % ointment 0-06 area(s) 3 ity of 00:00: (three) [place] 00 times Medical daily. Branch mupirocin 2 2020-07 Yes [id number] Apply to Univers % ointment 0-06 area(s) 3 ity of 00:00: (three) [place] 00 times Medical daily. Branch mupirocin 2 2020-07 Yes [id number] Apply to Univers % ointment 0-06 area(s) 3 ity of 00:00: (three) [place] 00 times Medical daily. Branch mupirocin 2 2020-07 Yes [id number] Apply to Univers % ointment 0-06 area(s) 3 ity of 00:00: (three) [place] 00 times Medical daily. Branch mupirocin 2 2020-07 Yes [id number] Apply to Univers % ointment 0-06 area(s) 3 ity of 00:00: (three) [place] 00 times Medical daily. Branch mupirocin 2 2020-07 Yes [id number] Apply to Univers % ointment 0-06 area(s) 3 ity of 00:00: (three) [place] 00 times Medical daily. Branch mupirocin 2 2020-07 Yes [id number] Apply to Univers % ointment 0-06 area(s) 3 ity of 00:00: (three) [place] 00 times Medical daily. Branch mupirocin 2 2020-07 Yes [id number] Apply to Univers % ointment 0-06 area(s) 3 ity of 00:00: (three) [place] 00 times Medical daily. Branch mupirocin 2 2020-07 Yes [id number] Apply to Univers % ointment 0-06 area(s) 3 ity of 00:00: (three) [place] 00 times Medical daily. Branch mupirocin 2 2020-07 Yes [id number] Apply to Univers % ointment 0-06 area(s) 3 ity of 00:00: (three) [place] 00 times Medical daily. Branch mupirocin 2 2020-07 Yes [id number] Apply to Univers % ointment 0-06 area(s) 3 ity of 00:00: (three) [place] 00 times Medical daily. Branch mupirocin 2 2020-07 Yes [id number] Apply to Univers % ointment 0-06 area(s) 3 ity of 00:00: (three) [place] 00 times Medical daily. Branch mupirocin 2 2020-07 Yes [id number] Apply to Univers % ointment 0-06 area(s) 3 ity of 00:00: (three) [place] 00 times Medical daily. Branch mupirocin 2 2020-07 Yes [id number] Apply to Univers % ointment 0-06 area(s) 3 ity of 00:00: (three) [place] 00 times Medical daily. Branch mupirocin 2 2020-07 Yes [id number] Apply to Univers % ointment 0-06 area(s) 3 ity of 00:00: (three) [place] 00 times Medical daily. Branch mupirocin 2 2020-07 Yes [id number] Apply to Univers % ointment 0-06 area(s) 3 ity of 00:00: (three) [place] 00 times Medical daily. Branch mupirocin 2 2020-07 Yes [id number] Apply to Univers % ointment 0-06 area(s) 3 ity of 00:00: (three) [place] 00 times Medical daily. Branch mupirocin 2 2020-07 Yes [id number] Apply to Univers % ointment 0-06 area(s) 3 ity of 00:00: (three) [place] 00 times Medical daily. Branch mupirocin 2 2020-07 Yes [id number] Apply to Univers % ointment 0-06 area(s) 3 ity of 00:00: (three) [place] 00 times Medical daily. Branch mupirocin 2 2020-07 Yes [id number] Apply to Univers % ointment 0-06 area(s) 3 ity of 00:00: (three) [place] 00 times Medical daily. Branch mupirocin 2 2020-07 Yes [id number] Apply to Univers % ointment 0-06 area(s) 3 ity of 00:00: (three) [place] 00 times Medical daily. Branch mupirocin 2 2020-07 Yes [id number] Apply to Univers % ointment 0-06 area(s) 3 ity of 00:00: (three) [place] 00 times Medical daily. Branch mupirocin 2 2020-07 Yes [id number] Apply to Univers % ointment 0-06 area(s) 3 ity of 00:00: (three) [place] 00 times Medical daily. Branch mupirocin 2 2020-07 Yes [id number] Apply to Univers % ointment 0-06 area(s) 3 ity of 00:00: (three) [place] 00 times Medical daily. Branch mupirocin 2 2020-07 Yes [id number] Apply to Univers % ointment 0-06 area(s) 3 ity of 00:00: (three) [place] 00 times Medical daily. Branch mupirocin 2 2020-07 Yes [id number] Apply to Univers % ointment 0-06 area(s) 3 ity of 00:00: (three) [place] 00 times Medical daily. Branch mupirocin 2 2020-07- No [id number] Apply to Univers % ointment 0-06 08-26 area(s) 3 ity of 00:00: 00:00 (three) [place] 00 :00 times Medical daily. Branch mupirocin 2 2020-07- No [id number] Apply to Univers % ointment 0-06 08-26 area(s) 3 ity of 00:00: 00:00 (three) [place] 00 :00 times Medical daily. Branch metFORMIN 2020-0 Yes 1000mg Take 1,000 Univers 1,000 mg 8-30 mg by ity of tablet 18:16: mouth 2 [place] [address] (two) Medical times [place] daily with meals. metFORMIN 2020-0 Yes 1000mg Take 1,000 Univers 1,000 mg 8-30 mg by ity of tablet 18:16: mouth 2 [place] [address] (two) Medical times [place] daily with meals. metFORMIN 202-0 Yes 1000mg Take 1,000 Univers 1,000 mg 8-30 mg by ity of tablet 13:16: mouth 2 [place] [address] (two) Medical times [place] daily with meals. metFORMIN 2020-0 Yes 1000mg Take 1,000 Univers 1,000 mg 8-30 mg by ity of tablet 13:16: mouth [address] [place] [address] (two) Medical times Branch daily with meals. metFORMIN 2021-0 Yes 1000mg Take 1,000 Univers 1,000 mg 8-30 mg by ity of tablet 13:16: mouth [address] [place] [address] (two) Medical times Branch daily with meals. metFORMIN 2021-0 Yes 1000mg Take 1,000 Univers 1,000 mg 8-30 mg by ity of tablet 13:16: mouth [address] [place] [address] (two) Medical times Branch daily with meals. metFORMIN 2021-0 Yes 1000mg Take 1,000 Univers 1,000 mg 8-30 mg by ity of tablet 13:16: mouth [address] [place] [address] (two) Medical times Branch daily with meals. metFORMIN 2021-0 Yes 1000mg Take 1,000 Univers 1,000 mg 8-30 mg by ity of tablet 13:16: mouth [address] [place] [address] (two) Medical times Branch daily with meals. metFORMIN 2021-0 Yes 1000mg Take 1,000 Univers 1,000 mg 8-30 mg by ity of tablet 13:16: mouth [address] [place] [address] (two) Medical times Branch daily with meals. metFORMIN 2021-0 Yes 1000mg Take 1,000 Univers 1,000 mg 8-30 mg by ity of tablet 13:16: mouth [address] [place] [address] (two) Medical times Branch daily with meals. metFORMIN 2021-0 Yes 1000mg Take 1,000 Univers 1,000 mg 8-30 mg by ity of tablet 13:16: mouth [address] [place] [address] (two) Medical times Branch daily with meals. metFORMIN 2021-0 Yes 1000mg Take 1,000 Univers 1,000 mg 8-30 mg by ity of tablet 13:16: mouth [address] [place] [address] (two) Medical times Branch daily with meals. metFORMIN 2021-0 Yes 1000mg Take 1,000 Univers 1,000 mg 8-30 mg by ity of tablet 13:16: mouth [address] [place] [address] (two) Medical times Branch daily with meals. metFORMIN 2021-0 Yes 1000mg Take 1,000 Univers 1,000 mg 8-30 mg by ity of tablet 13:16: mouth [address] [place] [address] (two) Medical times Branch daily with meals. metFORMIN 2021-0 Yes 1000mg Take 1,000 Univers 1,000 mg 8-30 mg by ity of tablet 13:16: mouth [address] [place] [address] (two) Medical times Branch daily with meals. metFORMIN 0 Yes 1000mg Take 1,000 Univers 1,000 mg 8-30 mg by ity of tablet 13:16: mouth 2 [place] 52 (two) Medical times [place] daily with meals. metFORMIN 2020-0 Yes 1000mg Take 1,000 Univers 1,000 mg 8-30 mg by ity of tablet 13:16: mouth 2 [place] 52 (two) Medical times [place] daily with meals. hydrocortis Yes [id number] Apply to Univers one 1 % 8-23 affected ity of cream 00:00: area(s) [place] 00 daily. Medical Branch hydrocortis Yes [id number] Apply to Univers one 1 % 8-23 affected ity of cream 00:00: area() [place] 00 daily. Medical Branch hydrocortis Yes [id number] Apply to Univers one 1 % 8-23 affected ity of cream 00:00: area(s) [place] 00 daily. Medical Branch hydrocortis Yes [id number] Apply to Univers one 1 % 8-23 affected ity of cream 00:00: area(s) [place] 00 daily. Medical Branch hydrocortis Yes [id number] Apply to Univers one 1 % 8-23 affected ity of cream 00:00: area() [place] 00 daily. Medical Branch hydrocortis Yes [id number] Apply to Univers one 1 % 8-23 affected ity of cream 00:00: area(s) [place] 00 daily. Medical Branch hydrocortis Yes [id number] Apply to Univers one 1 % 8-23 affected ity of cream 00:00: area(s) [place] 00 daily. Medical Branch hydrocortis 0 Yes [id number] Apply to Univers one 1 % 8-23 affected ity of cream 00:00: area(s) [place] 00 daily. Medical Branch hydrocortis 0 Yes [id number] Apply to Univers one 1 % 8-23 affected ity of cream 00:00: area(s) [place] 00 daily. Medical Branch hydrocortis Yes [id number] Apply to Univers one 1 % 8-23 affected ity of cream 00:00: area() [place] 00 daily. Medical Branch hydrocortis 2021-0 Yes [id number] Apply to Univers one 1 % 8-23 affected ity of cream 00:00: area(s) [place] 00 daily. Medical Branch hydrocortis 0 Yes [id number] Apply to Univers one 1 % 8-23 affected ity of cream 00:00: area(s) [place] 00 daily. Medical Branch hydrocortis 0 Yes [id number] Apply to Univers one 1 % 8-23 affected ity of cream 00:00: area(s) [place] 00 daily. Medical Branch hydrocortis 0 Yes [id number] Apply to Univers one 1 % 8-23 affected ity of cream 00:00: area(s) [place] 00 daily. Medical Branch hydrocortis 0 Yes [id number] Apply to Univers one 1 % 8-23 affected ity of cream 00:00: area(s) [place] 00 daily. Medical Branch hydrocortis 0 Yes [id number] Apply to Univers one 1 % 8-23 affected ity of cream 00:00: area(s) [place] 00 daily. Medical Branch hydrocortis 0 Yes [id number] Apply to Univers one 1 % 8-23 affected ity of cream 00:00: area(s) [place] 00 daily. Medical Branch hydrocortis 0 Yes [id number] Apply to Univers one 1 % 8-23 affected ity of cream 00:00: area(s) [place] 00 daily. Medical Branch hydrocortis 0 Yes [id number] Apply to Univers one 1 % 8-23 affected ity of cream 00:00: area(s) [place] 00 daily. Medical Branch hydrocortis 0 Yes [id number] Apply to Univers one 1 % 8-23 affected ity of cream 00:00: area(s) [place] 00 daily. Medical Branch hydrocortis 0 Yes [id number] Apply to Univers one 1 % 8-23 affected ity of cream 00:00: area(s) [place] 00 daily. Medical Branch hydrocortis 0 Yes [id number] Apply to Univers one 1 % 8-23 affected ity of cream 00:00: area(s) [place] 00 daily. Medical Branch hydrocortis 0 Yes [id number] Apply to Univers one 1 % 8-23 affected ity of cream 00:00: area(s) [place] 00 daily. Medical Branch hydrocortis 0 Yes [id number] Apply to Univers one 1 % 8-23 affected ity of cream 00:00: area(s) [place] 00 daily. Medical Branch hydrocortis 0 Yes [id number] Apply to Univers one 1 % 8-23 affected ity of cream 00:00: area(s) [place] 00 daily. Medical Branch hydrocortis 0 Yes [id number] Apply to Univers one 1 % 8-23 affected ity of cream 00:00: area(s) [place] 00 daily. Medical Branch hydrocortis 0 Yes [id number] Apply to Univers one 1 % 8-23 affected ity of cream 00:00: area() [place] 00 daily. Medical Branch hydrocortis 0 Yes [id number] Apply to Univers one 1 % 8-23 affected ity of cream 00:00: area() [place] 00 daily. Medical Branch hydrocortis 0 Yes [id number] Apply to Univers one 1 % 8-23 affected ity of cream 00:00: area(s) [place] 00 daily. Medical Branch hydrocortis 0 Yes [id number] Apply to Univers one 1 % 8-23 affected ity of cream 00:00: area(s) [place] 00 daily. Medical Branch hydrocortis 0 Yes [id number] Apply to Univers one 1 % 8-23 affected ity of cream 00:00: area(s) [place] 00 daily. Medical Branch hydrocortis 0 Yes [id number] Apply to Univers one 1 % 8-23 affected ity of cream 00:00: area(s) [place] 00 daily. Medical Branch hydrocortis 0 Yes [id number] Apply to Univers one 1 % 8-23 affected ity of cream 00:00: area(s) [place] 00 daily. Medical Branch hydrocortis 0 Yes [id number] Apply to Univers one 1 % 8-23 affected ity of cream 00:00: area(s) [place] 00 daily. Medical Branch hydrocortis 2020-0 Yes [id number] Apply to Univers one 1 % 8-23 affected ity of cream 00:00: area(s) [place] 00 daily. Medical Branch hydrocortis Yes [id number] Apply to Univers one 1 % 02-21 affected ity of cream 00:00: area(s) [place] 00 daily. Medical Branch hydrocortis 2021- No [id number] Apply to Univers one 1 % 8- affected ity of cream 00:00: 00:00 area(s) [place] 00 :00 daily. Medical Branch hydrocortis 2021- No [id number] Apply to Univers one 1 % 02-21 affected ity of cream 00:00: 00:00 area(s) [place] 00 :00 daily. Medical Branch silver 2020- No [id number] 1{appli 1 Un annabel nitrate 02-09 cator} Applicator ity of applicator 20:00: 18:22 , Topical, [place] 1 00 :00 ONCE, 1 Medical Applicator dose, [facility] 02/09/21 at 1500, Routine doxycycline 2020- No [id number] 100mg Take 1 Univers hyclate 100 02-09 capsule by i ty of mg capsule 00:00: 04:59 mouth [place] 00 :00 every 12 Medical (twelve) Branch hours for 7 days. doxycycline 2020- No [id number] 100mg Take 1 Univers hyclate 100 02-09 capsule by i ty of mg capsule 00:00: 04:59 mouth [place] 00 :00 every 12 Medical (twelve) Branch hours for 7 days. doxycycline 2020- No [id number] 100mg Take 1 Univers hyclate 100 02-09 capsule by i ty of mg capsule 00:00: 04:59 mouth [place] 00 :00 every 12 Medical (twelve) Branch hours for 7 days. ciprofloxac 2020- No [id number] 500mg Take 2 Univers in HCl 250 01-04-14 tablets by it y of mg tablet 00:00: 04:59 mouth [place] 00 :00 every 12 Medical (twelve) Branch hours for 7 days. triamcinolo 2020- No [id number] Apply to Univers ne 0.025 % 12-23- area(s) 2 ity of cream 00:00: 04:59 (two) [place] 00 :00 times Medical daily for Branch 7 days. metFORMIN 2021-0 Yes 1000mg Take 1,000 [facility] 1,000 mg 6-04 mg by ity of tablet 17:14: mouth [address] [place] [address] (two) Medical times Branch daily with meals. metFORMIN 2021-0 Yes 1000mg Take 1,000 Univers 1,000 mg 6-04 mg by ity of tablet 17:14: mouth [address] [place] [address] (two) Medical times Branch daily with meals. metFORMIN 2021-0 Yes 1000mg Take 1,000 Univers 1,000 mg 6-04 mg by ity of tablet 17:14: mouth [address] [place] [address] (two) Medical times Branch daily with meals. metFORMIN 2021-0 Yes 1000mg Take 1,000 Univers 1,000 mg 6-04 mg by ity of tablet 17:14: mouth [address] [place] [address] ([facility]) Medical times Branch daily with meals. metFORMIN 2021-0 Yes 1000mg Take 1,000 [facility] 1,000 mg 6-04 mg by ity of tablet 17:14: mouth [address] [place] [address] ([facility]) Medical times Branch daily with meals. metFORMIN 2021-0 Yes 1000mg Take 1,000 Univers 1,000 mg 6-04 mg by ity of tablet 17:14: mouth [address] [place] [address] (two) Medical times Branch daily with meals. metFORMIN 2021-0 Yes 1000mg Take 1,000 Univers 1,000 mg 6-04 mg by ity of tablet 17:14: mouth [address] [place] [address] (two) Medical times Branch daily with meals. metFORMIN 2021-0 Yes 1000mg Take 1,000 [facility] 1,000 mg 6-04 mg by ity of tablet 17:14: mouth [address] [place] [address] (two) Medical times Branch daily with meals. metFORMIN 2021-0 Yes 1000mg Take 1,000 [facility] 1,000 mg 6-04 mg by ity of tablet 17:14: mouth [address] [place] [address] (two) Medical times Branch daily with meals. metFORMIN 2021-0 Yes 1000mg Take 1,000 [facility] 1,000 mg 6-04 mg by ity of tablet 17:14: mouth [address] [place] [address] (two) Medical times Branch daily with meals. metFORMIN 2021-0 Yes 1000mg Take 1,000 [facility] 1,000 mg 6-04 mg by ity of tablet 17:14: mouth [address] [place] [address] (two) Medical times Branch daily with meals. metFORMIN 2021-0 Yes 1000mg Take 1,000 [facility] 1,000 mg 6-04 mg by ity of tablet 17:14: mouth 2 [place] [address] (two) Medical times Branch daily with meals. metFORMIN Yes 1000mg Take 1,000 [facility] 1,000 mg 6-04 mg by ity of tablet 17:14: mouth 2 [place] 47 (two) Medical times Branch daily with meals. metFORMIN Yes 1000mg Take 1,000 [facility] 1,000 mg 6-04 mg by ity of tablet 17:14: mouth 2 [place] 47 (two) Medical times Branch daily with meals. docusate Yes [id number] 100mg Take 1 U nivers 100 mg 6-04 capsule by ity of capsule 00:00: mouth [place] 00 daily. [facility] multivitami Yes [id number] 1{tbl} Take 1 [facility] tablet 6-04 tablet by [facility] of 00:00: mouth [place] 00 daily. [facility] polyethylen Yes [id number] 1{packe Take 1 [facility] e glycol 6-04 t} Packet by [facility] of 3350 17 00:00: mouth [place] gram powder 00 daily. [facility] docusate Yes [id number] 100mg Take 1 [facility] nivers 100 mg 6-04 capsule by [facility] of capsule 00:00: mouth [place] 00 daily. [facility] multivitami Yes [id number] 1{tbl} Take 1 [facility] tablet 6-04 tablet by [facility] of 00:00: mouth [place] 00 daily. [facility] polyethylen Yes [id number] 1{packe Take 1 [facility] e glycol 6-04 t} Packet by [facility] of 3350 17 00:00: mouth [place] gram powder 00 daily. [facility] docusate Yes [id number] 100mg Take 1 [facility] 100 mg 6-04 capsule by [facility] of capsule 00:00: mouth [place] 00 daily. [facility] multivitami Yes [id number] 1{tbl} Take 1 [facility] n tablet 6-04 tablet by [facility] of 00:00: mouth [place] 00 daily. [facility] polyethylen Yes [id number] 1{packe Take 1 [facility] e glycol 6-04 t} Packet by ity of 3350 17 00:00: mouth [place] gram powder 00 daily. [facility] docusate Yes [id number] 100mg Take 1 [facility] 100 mg 6-04 capsule by [facility] of capsule 00:00: mouth [place] 00 daily. [facility] multivitami Yes [id number] 1{tbl} Take 1 [facility] n tablet 6-04 tablet by [facility] of 00:00: mouth [place] 00 daily. [facility] polyethylen Yes [id number] 1{packe Take 1 [facility] e glycol 6-04 t} Packet by [facility]y of 3350 17 00:00: mouth [place] gram powder 00 daily. [facility] docusate Yes [id number] 100mg Take 1 [facility] 100 mg 6-04 capsule by [facility] of capsule 00:00: mouth [place] 00 daily. [facility] multivitami Yes [id number] 1{tbl} Take 1 [facility] n tablet 6-04 tablet by [facility] of 00:00: mouth [place] 00 daily. [facility] polyethylen Yes [id number] 1{packe Take 1 [facility] e glycol 6-04 t} Packet by ity of 3350 17 00:00: mouth [place] gram powder 00 daily. [facility] docusate Yes [id number] 100mg Take 1 [facility] 100 mg 6-04 capsule by [facility] of capsule 00:00: mouth [place] 00 daily. [facility] multivitami Yes [id number] 1{tbl} Take 1 [facility] n tablet 6-04 tablet by [facility] of 00:00: mouth [place] 00 daily. [facility] polyethylen Yes [id number] 1{packe Take 1 [facility] e glycol 6-04 t} Packet by [facility]y of 3350 17 00:00: mouth [place] gram powder 00 daily. [facility] docusate Yes [id number] 100mg Take 1 [facility] 100 mg 6-04 capsule by [facility] of capsule 00:00: mouth [place] 00 daily. [facility] multivitami Yes [id number] 1{tbl} Take 1 [facility] n tablet 6-04 tablet by [facility] of 00:00: mouth [place] 00 daily. [facility] polyethylen Yes [id number] 1{packe Take 1 [facility] e glycol 6-04 t} Packet by [facility] of 3350 17 00:00: mouth [place] gram powder 00 daily. [facility] docusate Yes [id number] 100mg Take 1 [facility] 100 mg 6-04 capsule by [facility] of capsule 00:00: mouth [place] 00 daily. [facility] multivitami Yes [id number] 1{tbl} Take 1 [facility] n tablet 6-04 tablet by [facility] of 00:00: mouth [place] 00 daily. [facility] polyethylen Yes [id number] 1{packe Take 1 [facility] e glycol 6-04 t} Packet by [facility] of 3350 17 00:00: mouth [place] gram powder 00 daily. [facility] docusate Yes [id number] 100mg Take 1 [facility] 100 mg 6-04 capsule by [facility] of capsule 00:00: mouth [place] 00 daily. [facility] multivitami Yes [id number] 1{tbl} Take 1 [facility] n tablet 6-04 tablet by [facility] of 00:00: mouth [place] 00 daily. [facility] polyethylen Yes [id number] 1{packe Take 1 [facility] e glycol 6-04 t} Packet by [facility] of 3350 17 00:00: mouth [place] gram powder 00 daily. [facility] docusate Yes [id number] 100mg Take 1 [facility] 100 mg 6-04 capsule by [facility] of capsule 00:00: mouth [place] 00 daily. [facility] multivitami Yes [id number] 1{tbl} Take 1 [facility] n tablet 6-04 tablet by [facility] of 00:00: mouth [place] 00 daily. [facility] polyethylen Yes [id number] 1{packe Take 1 [facility] e glycol 6-04 t} Packet by [facility] of 3350 17 00:00: mouth [place] gram powder 00 daily. [facility] docusate Yes [id number] 100mg Take 1 [facility] 100 mg 6-04 capsule by [facility] of capsule 00:00: mouth [place] 00 daily. [facility] multivitami Yes [id number] 1{tbl} Take 1 [facility] n tablet 6-04 tablet by [facility] of 00:00: mouth [place] 00 daily. [facility] polyethylen Yes [id number] 1{packe Take 1 [facility] e glycol 6-04 t} Packet by [facility]y of 3350 17 00:00: mouth [place] gram powder 00 daily. [facility] docusate Yes [id number] 100mg Take 1 [facility] 100 mg 6-04 capsule by [facility] of capsule 00:00: mouth [place] 00 daily. [facility] multivitami Yes [id number] 1{tbl} Take 1 [facility] n tablet 6-04 tablet by [facility] of 00:00: mouth [place] 00 daily. [facility] polyethylen Yes [id number] 1{packe Take 1 [facility] e glycol 6-04 t} Packet by [facility] of 3350 17 00:00: mouth [place] gram powder 00 daily. [facility] docusate Yes [id number] 100mg Take 1 [facility] 100 mg 6-04 capsule by [facility] of capsule 00:00: mouth [place] 00 daily. [facility] multivitami Yes [id number] 1{tbl} Take 1 [facility] n tablet 6-04 tablet by [facility] of 00:00: mouth [place] 00 daily. [facility] polyethylen Yes [id number] 1{packe Take 1 [facility] e glycol 6-04 t} Packet by [facility] of 3350 17 00:00: mouth [place] gram powder 00 daily. [facility] docusate Yes [id number] 100mg Take 1 [facility] 100 mg 6-04 capsule by [facility] of capsule 00:00: mouth [place] 00 daily. [facility] multivitami Yes [id number] 1{tbl} Take 1 [facility] n tablet 6-04 tablet by [facility] of 00:00: mouth [place] 00 daily. [facility] polyethylen Yes [id number] 1{packe Take 1 [facility] e glycol 6-04 t} Packet by ity of 3350 17 00:00: mouth [place] gram powder 00 daily. [facility] docusate Yes [id number] 100mg Take 1 [facility] 100 mg 6-04 capsule by [facility] of capsule 00:00: mouth [place] 00 daily. [facility] multivitami Yes [id number] 1{tbl} Take 1 [facility] n tablet 6-04 tablet by [facility] of 00:00: mouth [place] 00 daily. [facility] polyethylen Yes [id number] 1{packe Take 1 [facility] e glycol 6-04 t} Packet by [facility] of 3350 17 00:00: mouth [place] gram powder 00 daily. [facility] docusate Yes [id number] 100mg Take 1 [facility] nivers 100 mg 6-04 capsule by [facility] of capsule 00:00: mouth [place] 00 daily. [facility] multivitami Yes [id number] 1{tbl} Take 1 [facility] n tablet 6-04 tablet by [facility] of 00:00: mouth [place] 00 daily. [facility] polyethylen Yes [id number] 1{packe Take 1 [facility] e glycol 6-04 t} Packet by [facility] of 3350 17 00:00: mouth [place] gram powder 00 daily. [facility] docusate Yes [id number] 100mg Take 1 [facility]ivers 100 mg 6-04 capsule by [facility] of capsule 00:00: mouth [place] 00 daily. [facility] multivitami Yes [id number] 1{tbl} Take 1 [facility] n tablet 6-04 tablet by [facility] of 00:00: mouth [place] 00 daily. [facility] polyethylen Yes [id number] 1{packe Take 1 [facility] e glycol 6-04 t} Packet by [facility]y of 3350 17 00:00: mouth [place] gram powder 00 daily. [facility] docusate Yes [id number] 100mg Take 1 [facility] nivers 100 mg 6-04 capsule by [facility] of capsule 00:00: mouth [place] 00 daily. [facility] multivitami Yes [id number] 1{tbl} Take 1 [facility] n tablet 6-04 tablet by [facility] of 00:00: mouth [place] 00 daily. [facility] polyethylen Yes [id number] 1{packe Take 1 [facility] e glycol 6-04 t} Packet by [facility] of 3350 17 00:00: mouth [place] gram powder 00 daily. [facility] docusate Yes [id number] 100mg Take 1 [facility] nivers 100 mg 6-04 capsule by [facility] of capsule 00:00: mouth [place] 00 daily. [facility] multivitami Yes [id number] 1{tbl} Take 1 [facility] n tablet 6-04 tablet by [facility] of 00:00: mouth [place] 00 daily. [facility] polyethylen Yes [id number] 1{packe Take 1 [facility] e glycol 6-04 t} Packet by [facility] of 3350 17 00:00: mouth [place] gram powder 00 daily. [facility] docusate Yes [id number] 100mg Take 1 [facility]ivers 100 mg 6-04 capsule by [facility] of capsule 00:00: mouth [place] 00 daily. [facility] multivitami Yes [id number] 1{tbl} Take 1 [facility] n tablet 6-04 tablet by [facility] of 00:00: mouth [place] 00 daily. [facility] polyethylen Yes [id number] 1{packe Take 1 [facility] e glycol 6-04 t} Packet by [facility] of 3350 17 00:00: mouth [place] gram powder 00 daily. [facility] docusate Yes [id number] 100mg Take 1 [facility]ivers 100 mg 6-04 capsule by [facility] of capsule 00:00: mouth [place] 00 daily. [facility] multivitami Yes [id number] 1{tbl} Take 1 [facility] n tablet 6-04 tablet by [facility] of 00:00: mouth [place] 00 daily. [facility] polyethylen Yes [id number] 1{packe Take 1 [facility] e glycol 6-04 t} Packet by [facility] of 3350 17 00:00: mouth [place] gram powder 00 daily. [facility] docusate Yes [id number] 100mg Take 1 [facility] 100 mg 6-04 capsule by [facility] of capsule 00:00: mouth [place] 00 daily. [facility] multivitami Yes [id number] 1{tbl} Take 1 [facility] n tablet 6-04 tablet by [facility] of 00:00: mouth [place] 00 daily. [facility] polyethylen Yes [id number] 1{packe Take 1 [facility] e glycol 6-04 t} Packet by [facility] of 3350 17 00:00: mouth [place] gram powder 00 daily. [facility] docusate Yes [id number] 100mg Take 1 [facility]ivers 100 mg 6-04 capsule by [facility] of capsule 00:00: mouth [place] 00 daily. [facility] multivitami Yes [id number] 1{tbl} Take 1 [facility] n tablet 6-04 tablet by [facility] of 00:00: mouth [place] 00 daily. [facility] polyethylen Yes [id number] 1{packe Take 1 [facility] e glycol 6-04 t} Packet by [facility] of 3350 17 00:00: mouth [place] gram powder 00 daily. [facility] docusate Yes [id number] 100mg Take 1 [facility] nivers 100 mg 6-04 capsule by [facility] of capsule 00:00: mouth [place] 00 daily. [facility] multivitami Yes [id number] 1{tbl} Take 1 [facility] n tablet 6-04 tablet by [facility] of 00:00: mouth [place] 00 daily. [facility] polyethylen Yes [id number] 1{packe Take 1 [facility] e glycol 6-04 t} Packet by ity of 3350 17 00:00: mouth [place] gram powder 00 daily. [facility] docusate Yes [id number] 100mg Take 1 [facility] nivers 100 mg 6-04 capsule by [facility] of capsule 00:00: mouth [place] 00 daily. [facility] multivitami Yes [id number] 1{tbl} Take 1 [facility] n tablet 6-04 tablet by [facility] of 00:00: mouth [place] 00 daily. [facility] polyethylen Yes [id number] 1{packe Take 1 [facility] e glycol 6-04 t} Packet by it[facility] of 3350 17 00:00: mouth [place] gram powder 00 daily. [facility] docusate Yes [id number] 100mg Take 1 [facility] nivers 100 mg 6-04 capsule by [facility] of capsule 00:00: mouth [place] 00 daily. [facility] multivitami Yes [id number] 1{tbl} Take 1 [facility] n tablet 6-04 tablet by it[facility] of 00:00: mouth [place] 00 daily. [facility] polyethylen Yes [id number] 1{packe Take 1 [facility] e glycol 6-04 t} Packet by ity of 3350 17 00:00: mouth [place] gram powder 00 daily. [facility] docusate Yes [id number] 100mg Take 1 [facility] nivers 100 mg 6-04 capsule by [facility] of capsule 00:00: mouth [place] 00 daily. [facility] multivitami Yes [id number] 1{tbl} Take 1 [facility] n tablet 6-04 tablet by ity of 00:00: mouth [place] 00 daily. [facility] polyethylen Yes [id number] 1{packe Take 1 [facility] e glycol 6-04 t} Packet by ity of 3350 17 00:00: mouth [place] gram powder 00 daily. [facility] docusate Yes [id number] 100mg Take 1 [facility] nivers 100 mg 6-04 capsule by [facility] of capsule 00:00: mouth [place] 00 daily. [facility] multivitami Yes [id number] 1{tbl} Take 1 [facility] n tablet 6-04 tablet by ity of 00:00: mouth [place] 00 daily. [facility] polyethylen Yes [id number] 1{packe Take 1 [facility] e glycol 6-04 t} Packet by it[facility] of 3350 17 00:00: mouth [place] gram powder 00 daily. [facility] docusate Yes [id number] 100mg Take 1 [facility] nivers 100 mg 6-04 capsule by [facility] of capsule 00:00: mouth [place] 00 daily. [facility] multivitami Yes [id number] 1{tbl} Take 1 [facility] n tablet 6-04 tablet by ity of 00:00: mouth [place] 00 daily. [facility] polyethylen Yes [id number] 1{packe Take 1 [facility] e glycol 6-04 t} Packet by [facility] of 3350 17 00:00: mouth [place] gram powder 00 daily. [facility] docusate Yes [id number] 100mg Take 1 [facility] nivers 100 mg 6-04 capsule by [facility] of capsule 00:00: mouth [place] 00 daily. [facility] multivitami Yes [id number] 1{tbl} Take 1 [facility] n tablet 6-04 tablet by [facility] of 00:00: mouth [place] 00 daily. [facility] polyethylen Yes [id number] 1{packe Take 1 [facility] e glycol 6-04 t} Packet by [facility]y of 3350 17 00:00: mouth [place] gram powder 00 daily. [facility] docusate Yes [id number] 100mg Take 1 [facility] nivers 100 mg 6-04 capsule by [facility] of capsule 00:00: mouth [place] 00 daily. [facility] multivitami Yes [id number] 1{tbl} Take 1 [facility] n tablet 6-04 tablet by [facility]y of 00:00: mouth [place] 00 daily. [facility] polyethylen Yes [id number] 1{packe Take 1 [facility] e glycol 6-04 t} Packet by [facility] of 3350 17 00:00: mouth [place] gram powder 00 daily. [facility] docusate Yes [id number] 100mg Take 1 [facility] nivers 100 mg 6-04 capsule by [facility] of capsule 00:00: mouth [place] 00 daily. [facility] multivitami Yes [id number] 1{tbl} Take 1 [facility] n tablet 6-04 tablet by [facility] of 00:00: mouth [place] 00 daily. [facility] polyethylen Yes [id number] 1{packe Take 1 [facility] e glycol 6-04 t} Packet by [facility] of 3350 17 00:00: mouth [place] gram powder 00 daily. [facility] docusate Yes [id number] 100mg Take 1 [facility] nivers 100 mg 6-04 capsule by [facility] of capsule 00:00: mouth [place] 00 daily. [facility] multivitami Yes [id number] 1{tbl} Take 1 [facility] n tablet 6-04 tablet by [facility] of 00:00: mouth [place] 00 daily. [facility] polyethylen Yes [id number] 1{packe Take 1 [facility] e glycol 6-04 t} Packet by [facility]y of 3350 17 00:00: mouth [place] gram powder 00 daily. [facility] docusate Yes [id number] 100mg Take 1 [facility] nivers 100 mg 6-04 capsule by [facility] of capsule 00:00: mouth [place] 00 daily. [facility] multivitami 2021-0 Yes [id number] 1{tbl} Take 1 [facility] n tablet 6-04 tablet by [facility] of 00:00: mouth [place] 00 daily. [facility] polyethylen Yes [id number] 1{packe Take 1 [facility] e glycol 6-04 t} Packet by [facility] of 3350 17 00:00: mouth [place] gram powder 00 daily. [facility] docusate Yes [id number] 100mg Take 1 [facility] nivers 100 mg 6-04 capsule by [facility] of capsule 00:00: mouth [place] 00 daily. [facility] multivitami Yes [id number] 1{tbl} Take 1 [facility] n tablet 6-04 tablet by [facility] of 00:00: mouth [place] 00 daily. [facility] polyethylen Yes [id number] 1{packe Take 1 [facility] e glycol 6-04 t} Packet by [facility] of 3350 17 00:00: mouth [place] gram powder 00 daily. [facility] docusate Yes [id number] 100mg Take 1 [facility] nivers 100 mg 6-04 capsule by [facility] of capsule 00:00: mouth [place] 00 daily. [facility] multivitami Yes [id number] 1{tbl} Take 1 [facility] n tablet 6-04 tablet by [facility]y of 00:00: mouth [place] 00 daily. [facility] docusate Yes [id number] 100mg Take 1 [facility] nivers 100 mg 6-04 capsule by [facility] of capsule 00:00: mouth [place] 00 daily. [facility] multivitami Yes [id number] 1{tbl} Take 1 [facility] n tablet 6-04 tablet by [facility]y of 00:00: mouth [place] 00 daily. [facility] polyethylen Yes [id number] 1{packe Take 1 [facility] e glycol 6-04 t} Packet by ity of 3350 17 00:00: mouth [place] gram powder 00 daily. [facility] polyethylen Yes [id number] 1{packe Take 1 [facility] e glycol 6-04 t} Packet by ity of 3350 17 00:00: mouth [place] gram powder 00 daily. [facility] docusate Yes [id number] 100mg Take 1 [facility] nivers 100 mg 6-04 capsule by [facility] of capsule 00:00: mouth [place] 00 daily. [facility] multivitami Yes [id number] 1{tbl} Take 1 [facility] n tablet 6-04 tablet by ity of 00:00: mouth [place] 00 daily. [facility] polyethylen Yes [id number] 1{packe Take 1 [facility] e glycol 6-04 t} Packet by ity of 3350 17 00:00: mouth [place] gram powder 00 daily. [facility] docusate Yes [id number] 100mg Take 1 [facility] nivers 100 mg 6-04 capsule by [facility] of capsule 00:00: mouth [place] 00 daily. [facility] multivitami Yes [id number] 1{tbl} Take 1 [facility] n tablet 6-04 tablet by ity of 00:00: mouth [place] 00 daily. [facility] polyethylen Yes [id number] 1{packe Take 1 [facility] e glycol 6-04 t} Packet by ity of 3350 17 00:00: mouth [place] gram powder 00 daily. [facility] docusate Yes [id number] 100mg Take 1 [facility] nivers 100 mg 6-04 capsule by [facility] of capsule 00:00: mouth [place] 00 daily. [facility] multivitami Yes [id number] 1{tbl} Take 1 [facility] n tablet 6-04 tablet by ity of 00:00: mouth [place] 00 daily. [facility] polyethylen Yes [id number] 1{packe Take 1 [facility] e glycol 6-04 t} Packet by [facility]y of 3350 17 00:00: mouth [place] gram powder 00 daily. [facility] docusate Yes [id number] 100mg Take 1 [facility] nivers 100 mg 6-04 capsule by [facility] of capsule 00:00: mouth [place] 00 daily. [facility] multivitami Yes [id number] 1{tbl} Take 1 [facility] n tablet 6-04 tablet by [facility]y of 00:00: mouth [place] 00 daily. [facility] polyethylen Yes [id number] 1{packe Take 1 [facility] e glycol 6-04 t} Packet by [facility] of 3350 17 00:00: mouth [place] gram powder 00 daily. [facility] docusate Yes [id number] 100mg Take 1 [facility] nivers 100 mg 6-04 capsule by [facility] of capsule 00:00: mouth [place] 00 daily. [facility] multivitami Yes [id number] 1{tbl} Take 1 [facility] n tablet 6-04 tablet by [facility]y of 00:00: mouth [place] 00 daily. [facility] polyethylen Yes [id number] 1{packe Take 1 [facility] e glycol 6-04 t} Packet by [facility]y of 3350 17 00:00: mouth [place] gram powder 00 daily. [facility] docusate Yes [id number] 100mg Take 1 [facility] nivers 100 mg 6-04 capsule by [facility] of capsule 00:00: mouth [place] 00 daily. [facility] multivitami Yes [id number] 1{tbl} Take 1 [facility] n tablet 6-04 tablet by [facility]y of 00:00: mouth [place] 00 daily. [facility] polyethylen Yes [id number] 1{packe Take 1 [facility] e glycol 6-04 t} Packet by [facility]y of 3350 17 00:00: mouth [place] gram powder 00 daily. [facility] docusate Yes [id number] 100mg Take 1 [facility] nivers 100 mg 6-04 capsule by [facility] of capsule 00:00: mouth [place] 00 daily. [facility] multivitami Yes [id number] 1{tbl} Take 1 [facility] n tablet 6-04 tablet by [facility]y of 00:00: mouth [place] 00 daily. [facility] polyethylen Yes [id number] 1{packe Take 1 [facility] e glycol 6-04 t} Packet by [facility] of 3350 17 00:00: mouth [place] gram powder 00 daily. [facility] docusate Yes [id number] 100mg Take 1 [facility] nivers 100 mg 6-04 capsule by [facility] of capsule 00:00: mouth [place] 00 daily. [facility] multivitami Yes [id number] 1{tbl} Take 1 [facility] n tablet 6-04 tablet by [facility] of 00:00: mouth [place] 00 daily. [facility] polyethylen Yes [id number] 1{packe Take 1 [facility] e glycol 6-04 t} Packet by [facility]y of 3350 17 00:00: mouth [place] gram powder 00 daily. [facility] docusate Yes [id number] 100mg Take 1 [facility] nivers 100 mg 6-04 capsule by [facility] of capsule 00:00: mouth [place] 00 daily. [facility] multivitami Yes [id number] 1{tbl} Take 1 [facility] n tablet 6-04 tablet by [facility]y of 00:00: mouth [place] 00 daily. [facility] polyethylen Yes [id number] 1{packe Take 1 [facility] e glycol 6-04 t} Packet by ity of 3350 17 00:00: mouth [place] gram powder 00 daily. [facility] docusate Yes [id number] 100mg Take 1 [facility] nivers 100 mg 6-04 capsule by [facility] of capsule 00:00: mouth [place] 00 daily. [facility] multivitami Yes [id number] 1{tbl} Take 1 [facility] n tablet 6-04 tablet by [facility]y of 00:00: mouth [place] 00 daily. [facility] polyethylen Yes [id number] 1{packe Take 1 [facility] e glycol 6-04 t} Packet by [facility]y of 3350 17 00:00: mouth [place] gram powder 00 daily. [facility] docusate Yes [id number] 100mg Take 1 [facility] nivers 100 mg 6-04 capsule by [facility] of capsule 00:00: mouth [place] 00 daily. [facility] multivitami Yes [id number] 1{tbl} Take 1 [facility] n tablet 6-04 tablet by [facility] of 00:00: mouth [place] 00 daily. [facility] polyethylen Yes [id number] 1{packe Take 1 [facility] e glycol 6-04 t} Packet by [facility] of 3350 17 00:00: mouth [place] gram powder 00 daily. [facility] docusate Yes [id number] 100mg Take 1 [facility] nivers 100 mg 6-04 capsule by [facility] of capsule 00:00: mouth [place] 00 daily. [facility] multivitami Yes [id number] 1{tbl} Take 1 [facility] n tablet 6-04 tablet by [facility]y of 00:00: mouth [place] 00 daily. [facility] polyethylen Yes [id number] 1{packe Take 1 [facility] e glycol 6-04 t} Packet by [facility] of 3350 17 00:00: mouth [place] gram powder 00 daily. [facility] docusate Yes [id number] 100mg Take 1 [facility] nivers 100 mg 6-04 capsule by [facility] of capsule 00:00: mouth [place] 00 daily. [facility] multivitami Yes [id number] 1{tbl} Take 1 [facility] n tablet 6-04 tablet by [facility] of 00:00: mouth [place] 00 daily. [facility] polyethylen Yes [id number] 1{packe Take 1 [facility] e glycol 6-04 t} Packet by ity of 3350 17 00:00: mouth [place] gram powder 00 daily. [facility] docusate Yes [id number] 100mg Take 1 [facility] nivers 100 mg 6-04 capsule by [facility] of capsule 00:00: mouth [place] 00 daily. [facility] multivitami Yes [id number] 1{tbl} Take 1 [facility] n tablet 6-04 tablet by [facility]y of 00:00: mouth [place] 00 daily. [facility] polyethylen Yes [id number] 1{packe Take 1 [facility] e glycol 6-04 t} Packet by ity of 3350 17 00:00: mouth [place] gram powder 00 daily. [facility] docusate Yes [id number] 100mg Take 1 [facility] nivers 100 mg 6-04 capsule by [facility] of capsule 00:00: mouth [place] 00 daily. [facility] multivitami Yes [id number] 1{tbl} Take 1 [facility] n tablet 6-04 tablet by [facility]y of 00:00: mouth [place] 00 daily. [facility] polyethylen Yes [id number] 1{packe Take 1 [facility] e glycol 6-04 t} Packet by [facility]y of 3350 17 00:00: mouth [place] gram powder 00 daily. [facility] docusate Yes [id number] 100mg Take 1 [facility] nivers 100 mg 6-04 capsule by [facility] of capsule 00:00: mouth [place] 00 daily. [facility] multivitami Yes [id number] 1{tbl} Take 1 [facility] n tablet 6-04 tablet by [facility]y of 00:00: mouth [place] 00 daily. [facility] polyethylen Yes [id number] 1{packe Take 1 [facility] e glycol 6-04 t} Packet by [facility]y of 3350 17 00:00: mouth [place] gram powder 00 daily. [facility] docusate Yes [id number] 100mg Take 1 [facility] nivers 100 mg 6-04 capsule by [facility] of capsule 00:00: mouth [place] 00 daily. [facility] multivitami Yes [id number] 1{tbl} Take 1 [facility] n tablet 6-04 tablet by [facility]y of 00:00: mouth [place] 00 daily. [facility] polyethylen Yes [id number] 1{packe Take 1 [facility] e glycol 6-04 t} Packet by ity of 3350 17 00:00: mouth [place] gram powder 00 daily. [facility] docusate Yes [id number] 100mg Take 1 [facility] nivers 100 mg 6-04 capsule by [facility] of capsule 00:00: mouth [place] 00 daily. [facility] multivitami Yes [id number] 1{tbl} Take 1 [facility] n tablet 6-04 tablet by [facility]y of 00:00: mouth [place] 00 daily. [facility] polyethylen Yes [id number] 1{packe Take 1 [facility] e glycol 6-04 t} Packet by ity of 3350 17 00:00: mouth [place] gram powder 00 daily. [facility]ica l [facility] insulin 2020- No 15U inject 15 Univ ers lispro, 12-02 06-03 Units ity of human, 14:22: 00:00 under the [place] (HUMALOG 22 :00 skin 3 Medical U-100 (three) Branch INSULIN) times 100 unit/mL daily with injection meals. insulin NPH Yes 13U 13 Units, U nivers (HUMULIN N) 6- Subcutaneo it y of injection 14:00: [place], GIOVANI, [place] 13 Units 00 First dose Medic al (after Branch last modificati on) on Nathalie 12/02/20 at 0900, Until Discontinu ed, Routine insulin Yes 5U 5 Units, Univer s lispro 6-03 Subcutaneo ity of (human) 13:45: us, TID [place] (HumaLOG 00 MEALS, Medical U-100) First dose Branch injection 5 (after Units last modificati on) on Nathalie 12/02/20 at 0845, Until Discontinu ed, Routine Sliding 2020-0 Yes Subcutaneo Univ ers Scale 6-03 us, TID ity of Insulin - 13:00: MEALS+HS, Jelani as Lispro 00 First dose Medical (HumaLOG) + (after Branch Fsbg last Testing modificati on) on Nathalie 12/02/20 at 0800, Until Discontinu ed, Routine diphenhydrA 2020-0 Yes [id number] 25mg Take 1 [facility] MINE 25 mg 6-03 tablet by ity of tablet 00:00: mouth [place] 00 every 4 Medical (four) Branch hours as needed for Itching. diphenhydrA 0 Yes [id number] 25mg Take 1 [facility] MINE 25 mg 6-03 tablet by ity of tablet 00:00: mouth [place] 00 every 4 Medical (four) Branch hours as needed for Itching. diphenhydrA 0 Yes [id number] 25mg Take 1 [facility] MINE 25 mg 6-03 tablet by ity of tablet 00:00: mouth [place] 00 every 4 Medical (four) Branch hours as needed for Itching. diphenhydrA 0 Yes [id number] 25mg Take 1 [facility] MINE 25 mg 6-03 tablet by ity of tablet 00:00: mouth [place] 00 every 4 Medical (four) Branch hours as needed for Itching. diphenhydrA 0 Yes [id number] 25mg Take 1 [facility] MINE 25 mg 6-03 tablet by ity of tablet 00:00: mouth [place] 00 every 4 Medical (four) Branch hours as needed for Itching. diphenhydrA 2020-0 Yes [id number] 25mg Take 1 [facility] MINE 25 mg 6-03 tablet by ity of tablet 00:00: mouth [place] 00 every 4 Medical (four) Branch hours as needed for Itching. diphenhydrA 0 Yes [id number] 25mg Take 1 [facility] MINE 25 mg 6-03 tablet by ity of tablet 00:00: mouth [place] 00 every 4 Medical (four) Branch hours as needed for Itching. diphenhydrA 2021-0 Yes [id number] 25mg Take 1 [facility] MINE 25 mg 6-03 tablet by ity of tablet 00:00: mouth [place] 00 every 4 Medical (four) Branch hours as needed for Itching. diphenhydrA 2020-0 Yes [id number] 25mg Take 1 [facility] MINE 25 mg 6-03 tablet by ity of tablet 00:00: mouth [place] 00 every 4 Medical (four) Branch hours as needed for Itching. diphenhydrA 2020-0 Yes [id number] 25mg Take 1 [facility] MINE 25 mg 6-03 tablet by ity of tablet 00:00: mouth [place] 00 every 4 Medical (four) Branch hours as needed for Itching. diphenhydrA 2020-0 Yes [id number] 25mg Take 1 [facility] MINE 25 mg 6-03 tablet by ity of tablet 00:00: mouth [place] 00 every 4 Medical (four) Branch hours as needed for Itching. diphenhydrA 2020-0 Yes [id number] 25mg Take 1 [facility] MINE 25 mg 6-03 tablet by ity of tablet 00:00: mouth [place] 00 every 4 Medical (four) Branch hours as needed for Itching. diphenhydrA 2020-0 Yes [id number] 25mg Take 1 [facility] MINE 25 mg 6-03 tablet by ity of tablet 00:00: mouth [place] 00 every 4 Medical (four) Branch hours as needed for Itching. diphenhydrA 2020-0 Yes [id number] 25mg Take 1 [facility] MINE 25 mg 6-03 tablet by ity of tablet 00:00: mouth [place] 00 every 4 Medical (four) Branch hours as needed for Itching. diphenhydrA 2020-0 Yes [id number] 25mg Take 1 [facility] MINE 25 mg 6-03 tablet by ity of tablet 00:00: mouth [place] 00 every 4 Medical (four) Branch hours as needed for Itching. diphenhydrA 2021-0 Yes [id number] 25mg Take 1 [facility] MINE 25 mg 6-03 tablet by ity of tablet 00:00: mouth [place] 00 every 4 Medical (four) Branch hours as needed for Itching. diphenhydrA 1-0 Yes [id number] 25mg Take 1 [facility] MINE 25 mg 6-03 tablet by ity of tablet 00:00: mouth [place] 00 every 4 Medical (four) Branch hours as needed for Itching. diphenhydrA 2021-0 Yes [id number] 25mg Take 1 [facility] MINE 25 mg 6-03 tablet by ity of tablet 00:00: mouth [place] 00 every 4 Medical (four) Branch hours as needed for Itching. diphenhydrA 2021-0 Yes [id number] 25mg Take 1 [facility] MINE 25 mg 6-03 tablet by ity of tablet 00:00: mouth [place] 00 every 4 Medical (four) Branch hours as needed for Itching. diphenhydrA 2020-0 Yes [id number] 25mg Take 1 [facility] MINE 25 mg 6-03 tablet by ity of tablet 00:00: mouth [place] 00 every 4 Medical (four) Branch hours as needed for Itching. diphenhydrA 202-0 Yes [id number] 25mg Take 1 [facility] MINE 25 mg 6-03 tablet by ity of tablet 00:00: mouth [place] 00 every 4 Medical (four) Branch hours as needed for Itching. diphenhydrA 2020-0 Yes [id number] 25mg Take 1 [facility] MINE 25 mg 6-03 tablet by ity of tablet 00:00: mouth [place] 00 every 4 Medical (four) Branch hours as needed for Itching. diphenhydrA 2020-0 Yes [id number] 25mg Take 1 [facility] MINE 25 mg 6-03 tablet by ity of tablet 00:00: mouth [place] 00 every 4 Medical (four) Branch hours as needed for Itching. diphenhydrA 2020-0 Yes [id number] 25mg Take 1 [facility] MINE 25 mg 6-03 tablet by ity of tablet 00:00: mouth [place] 00 every 4 Medical (four) Branch hours as needed for Itching. diphenhydrA 2020-0 Yes [id number] 25mg Take 1 [facility] MINE 25 mg 6-03 tablet by ity of tablet 00:00: mouth [place] 00 every 4 Medical (four) Branch hours as needed for Itching. diphenhydrA 2021-0 Yes [id number] 25mg Take 1 [facility] MINE 25 mg 6-03 tablet by ity of tablet 00:00: mouth [place] 00 every 4 Medical (four) Branch hours as needed for Itching. diphenhydrA 2021-0 Yes [id number] 25mg Take 1 [facility] MINE 25 mg 6-03 tablet by ity of tablet 00:00: mouth [place] 00 every 4 Medical (four) Branch hours as needed for Itching. diphenhydrA 2021-0 Yes [id number] 25mg Take 1 [facility] MINE 25 mg 6-03 tablet by ity of tablet 00:00: mouth [place] 00 every 4 Medical (four) Branch hours as needed for Itching. diphenhydrA 2020-0 Yes [id number] 25mg Take 1 [facility] MINE 25 mg 6-03 tablet by ity of tablet 00:00: mouth [place] 00 every 4 Medical (four) Branch hours as needed for Itching. diphenhydrA 2020-0 Yes [id number] 25mg Take 1 [facility] MINE 25 mg 6-03 tablet by ity of tablet 00:00: mouth [place] 00 every 4 Medical (four) Branch hours as needed for Itching. diphenhydrA 2020-0 Yes [id number] 25mg Take 1 [facility] MINE 25 mg 6-03 tablet by ity of tablet 00:00: mouth [place] 00 every 4 Medical (four) Branch hours as needed for Itching. diphenhydrA 2020-0 Yes [id number] 25mg Take 1 [facility] MINE 25 mg 6-03 tablet by ity of tablet 00:00: mouth [place] 00 every 4 Medical (four) Branch hours as needed for Itching. diphenhydrA 2020-0 Yes [id number] 25mg Take 1 [facility] MINE 25 mg 6-03 tablet by ity of tablet 00:00: mouth [place] 00 every 4 Medical (four) Branch hours as needed for Itching. diphenhydrA 2020-0 Yes [id number] 25mg Take 1 [facility] MINE 25 mg 6-03 tablet by ity of tablet 00:00: mouth [place] 00 every 4 Medical (four) Branch hours as needed for Itching. diphenhydrA 2020-0 Yes [id number] 25mg Take 1 [facility] MINE 25 mg 6-03 tablet by ity of tablet 00:00: mouth [place] 00 every 4 Medical (four) Branch hours as needed for Itching. diphenhydrA 2021-0 Yes [id number] 25mg Take 1 [facility] MINE 25 mg 6-03 tablet by ity of tablet 00:00: mouth [place] 00 every 4 Medical (four) Branch hours as needed for Itching. diphenhydrA 2021-0 Yes [id number] 25mg Take 1 [facility] MINE 25 mg 6-03 tablet by ity of tablet 00:00: mouth [place] 00 every 4 Medical (four) Branch hours as needed for Itching. diphenhydrA 2020-0 Yes [id number] 25mg Take 1 [facility] MINE 25 mg 6-03 tablet by ity of tablet 00:00: mouth [place] 00 every 4 Medical (four) Branch hours as needed for Itching. diphenhydrA 202-0 Yes [id number] 25mg Take 1 [facility] MINE 25 mg 6-03 tablet by ity of tablet 00:00: mouth [place] 00 every 4 Medical (four) Branch hours as needed for Itching. diphenhydrA 2020-0 Yes [id number] 25mg Take 1 [facility] MINE 25 mg 6-03 tablet by ity of tablet 00:00: mouth [place] 00 every 4 Medical (four) Branch hours as needed for Itching. diphenhydrA 2020-0 Yes [id number] 25mg Take 1 [facility] MINE 25 mg 6-03 tablet by ity of tablet 00:00: mouth [place] 00 every 4 Medical (four) Branch hours as needed for Itching. diphenhydrA 2020-0 Yes [id number] 25mg Take 1 [facility] MINE 25 mg 6-03 tablet by ity of tablet 00:00: mouth [place] 00 every 4 Medical (four) Branch hours as needed for Itching. diphenhydrA 2020-0 Yes [id number] 25mg Take 1 [facility] MINE 25 mg 6-03 tablet by ity of tablet 00:00: mouth [place] 00 every 4 Medical (four) Branch hours as needed for Itching. diphenhydrA 2020-0 Yes [id number] 25mg Take 1 [facility] MINE 25 mg 6-03 tablet by ity of tablet 00:00: mouth [place] 00 every 4 Medical (four) Branch hours as needed for Itching. diphenhydrA 2020-0 Yes [id number] 25mg Take 1 [facility] MINE 25 mg 6-03 tablet by ity of tablet 00:00: mouth [place] 00 every 4 Medical (four) Branch hours as needed for Itching. diphenhydrA 2021-0 Yes [id number] 25mg Take 1 [facility] MINE 25 mg 6-03 tablet by ity of tablet 00:00: mouth [place] 00 every 4 Medical (four) Branch hours as needed for Itching. diphenhydrA 202-0 Yes [id number] 25mg Take 1 [facility] MINE 25 mg 6-03 tablet by ity of tablet 00:00: mouth [place] 00 every 4 Medical (four) Branch hours as needed for Itching. diphenhydrA 0 Yes [id number] 25mg Take 1 [facility] MINE 25 mg 6-03 tablet by ity of tablet 00:00: mouth [place] 00 every 4 Medical (four) Branch hours as needed for Itching. diphenhydrA 0 Yes [id number] 25mg Take 1 [facility] MINE 25 mg 6-03 tablet by ity of tablet 00:00: mouth [place] 00 every 4 Medical (four) Branch hours as needed for Itching. diphenhydrA 0 Yes [id number] 25mg Take 1 [facility] MINE 25 mg 6-03 tablet by ity of tablet 00:00: mouth [place] 00 every 4 Medical (four) Branch hours as needed for Itching. diphenhydrA 0 Yes [id number] 25mg Take 1 [facility] MINE 25 mg 6-03 tablet by ity of tablet 00:00: mouth [place] 00 every 4 Medical (four) Branch hours as needed for Itching. diphenhydrA 0 Yes [id number] 25mg Take 1 [facility] MINE 25 mg 6-03 tablet by ity of tablet 00:00: mouth [place] 00 every 4 Medical (four) Branch hours as needed for Itching. diphenhydrA 0 Yes [id number] 25mg Take 1 [facility] MINE 25 mg 6-03 tablet by ity of tablet 00:00: mouth [place] 00 every 4 Medical (four) Branch hours as needed for Itching. diphenhydrA 0 Yes [id number] 25mg Take 1 [facility] MINE 25 mg 6-03 tablet by ity of tablet 00:00: mouth [place] 00 every 4 Medical (four) Branch hours as needed for Itching. diphenhydrA 0 Yes [id number] 25mg Take 1 [facility] MINE 25 mg 6-03 tablet by ity of tablet 00:00: mouth [place] 00 every 4 Medical (four) Branch hours as needed for Itching. atorvastati 2020-2021- No [id number] 10mg Take 1 [facility] n 10 mg 6-03 06-04 tablet by ity of tablet 00:00: 04:59 mouth at [place] 00 :00 bedtime. Medical Branch atorvastati 2021- No [id number] 10mg Take 1 [facility] n 10 mg -09 04- tablet by ity of tablet 00:00: 04:59 mouth at [place] 00 :00 [facility]time. [facility]- No [id number] 10mg Take 1 [facility] n 10 mg -12-03 tablet by ity of tablet 00:00: 04:59 mouth at [place] 00 :00 bedtime. [facility]- No [id number] 10mg Take 1 [facility] n 10 mg -12-03 tablet by ity of tablet 00:00: 04:59 mouth at [place] 00 :00 bedtime. [facility]- No [id number] 10mg Take 1 [facility] n 10 mg 12-02 tablet by ity of tablet 00:00: 04:59 mouth at [place] 00 :00 [facility]. [facility] No [id number] 10mg Take 1 [facility] n 10 mg 12-02 tablet by ity of tablet 00:00: 04:59 mouth at [place] 00 :00 bedtime. [facility]- No [id number] 10mg Take 1 [facility] n 10 mg 12-02 tablet by ity of tablet 00:00: 04:59 mouth at [place] 00 :00 bedtime. [facility]- No [id number] 10mg Take 1 [facility] n 10 mg 12-02- tablet by ity of tablet 00:00: 04:59 mouth at [place] 00 :00 bedtime. [facility]- No [id number] 10mg Take 1 [facility] n 10 mg -09 04- tablet by ity of tablet 00:00: 04:59 mouth at [place] 00 :00 bedtime. [facility] 2021- No [id number] 10mg Take 1 [facility] n 10 mg 6-09 04-04 tablet by ity of tablet 00:00: 04:59 mouth at [place] 00 :00 bedtime. [facility] 2021- No [id number] 10mg Take 1 [facility] n 10 mg 6-09 04- tablet by ity of tablet 00:00: 04:59 mouth at [place] 00 :00 bedtime. [facility]- No [id number] 10mg Take 1 [facility] n 10 mg 6-09 04- tablet by ity of tablet 00:00: 04:59 mouth at [place] 00 :00 bedtime. [facility]- No [id number] 10mg Take 1 [facility] n 10 mg 6-09 04- tablet by ity of tablet 00:00: 04:59 mouth at [place] 00 :00 bedtime. [facility]- No [id number] 10mg Take 1 [facility] n 10 mg 6-09 04- tablet by ity of tablet 00:00: 04:59 mouth at [place] 00 :00 bedtime. [facility]- No [id number] 10mg Take 1 [facility] n 10 mg -09 04- tablet by ity of tablet 00:00: 04:59 mouth at [place] 00 :00 bedtime. [facility]- No [id number] 10mg Take 1 [facility] n 10 mg -12-03 tablet by ity of tablet 00:00: 04:59 mouth at [place] 00 :00 bedtime. [facility]- No [id number] 10mg Take 1 [facility] n 10 mg 6-09 04- tablet by ity of tablet 00:00: 04:59 mouth at [place] 00 :00 bedtime. [facility]- No [id number] 10mg Take 1 [facility] n 10 mg 6-09 04- tablet by ity of tablet 00:00: 04:59 mouth at [place] 00 :00 bedtime. [facility]- No [id number] 10mg Take 1 [facility] n 10 mg 6-09 04- tablet by ity of tablet 00:00: 04:59 mouth at [place] 00 :00 bedtime. [facility]- No [id number] 10mg Take 1 [facility] n 10 mg 6-09 04- tablet by ity of tablet 00:00: 04:59 mouth at [place] 00 :00 bedtime. Medical Branch atorvastati 2021- No [id number] 10mg Take 1 [facility] n 10 mg 6-09 04-04 tablet by ity of tablet 00:00: 04:59 mouth at [place] 00 :00 bedtime. [facility] Branch atorvasta 2021- No [id number] 10mg Take 1 Univers n 10 mg 6- 06-04 tablet by ity of tablet 00:00: 04:59 mouth at [place] 00 :00 bedtime. [facility] Branch atorvasta 2021- No [id number] 10mg Take 1 Univers n 10 mg 6-09 04-04 tablet by ity of tablet 00:00: 04:59 mouth at [place] 00 :00 bedtime. [facility] Branch atorvasta 2021- No [id number] 10mg Take 1 Univers n 10 mg 6-09 04- tablet by ity of tablet 00:00: 04:59 mouth at [place] 00 :00 bedtime. [facility] Branch atorvasta 2021- No [id number] 10mg Take 1 Univers n 10 mg 6-09 04- tablet by ity of tablet 00:00: 04:59 mouth at [place] 00 :00 bedtime. [facility] Branch atorvasta 2021- No [id number] 10mg Take 1 Univers n 10 mg 6-09 04-04 tablet by ity of tablet 00:00: 04:59 mouth at [place] 00 :00 bedtime. [facility] Branch atorvastati 2021- No [id number] 10mg Take 1 Univers n 10 mg 6-09 04-04 tablet by ity of tablet 00:00: 04:59 mouth at [place] 00 :00 bedtime. [facility] Branch atorvastati 2021- No [id number] 10mg Take 1 Univers n 10 mg 6-09 04-04 tablet by ity of tablet 00:00: 04:59 mouth at [place] 00 :00 bedtime. [facility] Branch atorvastati 2021- No [id number] 10mg Take 1 Univers n 10 mg 6- 06-04 tablet by ity of tablet 00:00: 04:59 mouth at [place] 00 :00 bedtime. Medical Branch insulin NPH 2020- No [id number] 16U inject 16 Univers and regular 6-03 07-05 Units ity of human 70-30 00:00: 04:59 under the [place] (NOVOLIN 00 :00 skin 2 Medical 70/30 U-100 (two) Branch INSULIN) times 100 unit/mL daily (70-30) before injection breakfast and dinner for 31 days. insulin NPH 2020- No [id number] 16U inject 16 Univers and regular 6-03 07-05 Units ity of human 70-30 00:00: 04:59 under the [place] (NOVOLIN 00 :00 skin 2 Medical 70/30 U-100 (two) Branch INSULIN) times 100 unit/mL daily (70-30) before injection breakfast and dinner for 31 days. insulin NPH 2020- No [id number] 16U inject 16 Univers and regular 6-03 07-05 Units ity of human 70-30 00:00: 04:59 under the [place] (NOVOLIN 00 :00 skin 2 Medical 70/30 U-100 (two) Branch INSULIN) times 100 unit/mL daily (70-30) before injection breakfast and dinner for 31 days. insulin NPH 2020- No [id number] 16U inject 16 Univers and regular 6-03 07-05 Units ity of human 70-30 00:00: 04:59 under the [place] (NOVOLIN 00 :00 skin 2 Medical 70/30 U-100 (two) Branch INSULIN) times 100 unit/mL daily (70-30) before injection breakfast and dinner for 31 days. insulin NPH 2020- No [id number] 16U inject 16 Univers and regular 6-03 07-05 Units ity of human 70-30 00:00: 04:59 under the [place] (NOVOLIN 00 :00 skin 2 Medical 70/30 U-100 (two) Branch INSULIN) times 100 unit/mL daily (70-30) before injection breakfast and dinner for 31 days. amitriptyli 2020- No [id number] 25mg Take 1 [facility] ne 25 mg 12-02 tablet by ity o f tablet 00:00: 04:59 mouth at [place] 00 :00 bedtime Medical for 30 Branch days. gabapentin 2020- No [id number] 900mg Take 3 [facility] 300 mg 12-02 capsules ity of capsule 00:00: 04:59 by mouth 3 [place] 00 :00 (three) Medical times Branch daily for 30 days. glucagon 1 2020- No [id number] 1mg 1 mg by Univers mg/mL SolR 12-02 Intramuscu it y of injection 00:00: 04:59 lar route [place] 00 :00 as needed Medical (Blood Branch Glucose < or = 70 mg/dL and patient is unable to swallow or has mental changes.) for up to 30 days. amitriptyli 2020- No [id number] 25mg Take 1 [facility] ne 25 mg 12-02 tablet by ity o f tablet 00:00: 04:59 mouth at [place] 00 :00 bedtime Medical for 30 Branch days. gabapentin 2020- No [id number] 900mg Take 3 [facility] 300 mg 12-02 capsules ity of capsule 00:00: 04:59 by mouth 3 [place] 00 :00 (three) Medical times Branch daily for 30 days. glucagon 1 2020- No [id number] 1mg 1 mg by Univers mg/mL SolR 12-02 Intramuscu it y of injection 00:00: 04:59 lar route [place] 00 :00 as needed Medical (Blood Branch Glucose < or = 70 mg/dL and patient is unable to swallow or has mental changes.) for up to 30 days. amitriptyli 2020- No [id number] 25mg Take 1 [facility] ne 25 mg 12-02 tablet by ity o f tablet 00:00: 04:59 mouth at [place] 00 :00 bedtime Medical for 30 Branch days. gabapentin 2020- No [id number] 900mg Take 3 [facility] 300 mg 12-02 capsules ity of capsule 00:00: 04:59 by mouth 3 [place] 00 :00 (three) Medical times Branch daily for 30 days. glucagon 1 2020- No [id number] 1mg 1 mg by Univers mg/mL SolR 12-02 Intramuscu it y of injection 00:00: 04:59 lar route [place] 00 :00 as needed Medical (Blood Branch Glucose < or = 70 mg/dL and patient is unable to swallow or has mental changes.) for up to 30 days. amitriptyli 2020- No [id number] 25mg Take 1 [facility] ne 25 mg 12-02 tablet by ity o f tablet 00:00: 04:59 mouth at [place] 00 :00 bedtime Medical for 30 Branch days. gabapentin 2020- No [id number] 900mg Take 3 [facility] 300 mg 12-02 capsules ity of capsule 00:00: 04:59 by mouth 3 [place] 00 :00 (three) Medical times Branch daily for 30 days. glucagon 1 2020- No [id number] 1mg 1 mg by Univers mg/mL SolR 12-02 Intramuscu it y of injection 00:00: 04:59 lar route [place] 00 :00 as needed Medical (Blood Branch Glucose < or = 70 mg/dL and patient is unable to swallow or has mental changes.) for up to 30 days. amitriptyli 2020- No [id number] 25mg Take 1 [facility] ne 25 mg 12-02 tablet by ity o f tablet 00:00: 04:59 mouth at [place] 00 :00 bedtime Medical for 30 Branch days. gabapentin 2020- No [id number] 900mg Take 3 [facility] 300 mg 12-02 capsules ity of capsule 00:00: 04:59 by mouth 3 [place] 00 :00 (three) Medical times Branch daily for 30 days. glucagon 1 2020- No [id number] 1mg 1 mg by [facility] mg/mL SolR 12-02 Intramuscu it y of injection 00:00: 04:59 lar route [place] 00 :00 as needed Medical (Blood Branch Glucose < or = 70 mg/dL and patient is unable to swallow or has mental changes.) for up to 30 days. acetaminoph 2020- No [id number] 500mg Take 1 [facility] en 500 mg 12-02 tablet by ity of tablet 00:00: 04:59 mouth [place] 00 :00 every 6 Medical (six) Branch hours as needed for Pain for up to 14 days. pantoprazol No [id number] 40mg Take 1 Univers e 40 mg EC 12-02 tablet by ity of tablet 00:00: 04:59 mouth [place] 00 :00 daily for Medical 14 days. Branch acetaminoph 2020- No [id number] 500mg Take 1 [facility] en 500 mg 12-02 tablet by ity of tablet 00:00: 04:59 mouth [place] 00 :00 every 6 Medical (six) Branch hours as needed for Pain for up to 14 days. pantoprazol No [id number] 40mg Take 1 [facility] e 40 mg EC 12-02 tablet by ity of tablet 00:00: 04:59 mouth [place] 00 :00 daily for Medical 14 days. Branch acetaminoph No [id number] 500mg Take 1 [facility] en 500 mg 12-02 tablet by ity of tablet 00:00: 04:59 mouth [place] 00 :00 every 6 Medical (six) Branch hours as needed for Pain for up to 14 days. pantoprazol No [id number] 40mg Take 1 [facility] e 40 mg EC 12-02 tablet by ity of tablet 00:00: 04:59 mouth [place] 00 :00 daily for Medical 14 days. Branch acetaminoph No [id number] 500mg Take 1 [facility] en 500 mg 12-02 tablet by ity of tablet 00:00: 04:59 mouth [place] 00 :00 every 6 Medical (six) Branch hours as needed for Pain for up to 14 days. pantoprazol No [id number] 40mg Take 1 Univers e 40 mg EC 12-02 tablet by ity of tablet 00:00: 04:59 mouth [place] 00 :00 daily for Medical 14 days. Branch HYDROcodone 2020- No [id number] 1{tbl} Take 1 U nivers -acetaminop 12-02 tablet by it y of hen (NORCO) 00:00: 04:59 mouth [place] 5-325 mg 00 :00 every 6 Medical tablet (six) Branch hours as needed for Pain (scale 7-10) for up to 7 days. Indication s: acute pain HYDROcodone 2020- No 4647 1{tbl} Take 1 U nivers -acetaminop 6-03 06-11 tablet by it y of hen (NORCO) 00:00: 04:59 mouth [place] 5-325 mg 00 :00 every 6 Medical tablet (six) Branch hours as needed for Pain (scale 7-10) for up to 7 days. Indication s: acute pain HYDROcodone 2020- No 4647 1{tbl} Take 1 U nivers -acetaminop 6- 06-11 tablet by it y of hen (NORCO) 00:00: 04:59 mouth [place] 5-325 mg 00 :00 every 6 Medical tablet (six) Branch hours as needed for Pain (scale 7-10) for up to 7 days. Indication s: acute pain insulin NPH Yes 11U 11 Units, U nivers (HUMULIN N) 12-01 Subcutaneo it y of injection 22:00: us, QPM, [place] 11 Units 00 First dose Medic al (after Branch last modificati on) on Sun12/01/20 at 1700, Until Discontinu ed, Routine Sliding 2020- No Subcutaneo Uni vers Scale 12-0103 us, TID ity of Insulin - 22:00: 02:32 MEALS+HS, [place] Lispro 00 :07 First dose Medical (HumaLOG) + (after Branch Fsbg last Testing modificati on) on Sun12/01/20 at 1700, Until Discontinu ed, Routine insulin 2020- No 4U 4 Units, Unive rs lispro 12-0103 Subcutaneo ity of (human) 17:45: 13:34 us, TID [place] (HumaLOG 00 :58 MEALS, Medical U-100) First dose Branch injection 4 (after Units last modificati on) on Sun12/01/20 at 1245, Until Discontinu ed, Routine amitriptyli Yes 25mg 25 mg, Univ ers ne (ELAVIL) 12-01 Oral, QHS, it y of tablet 25 02:00: First dose [place] mg 00 on Sun11/30/20 at Branch 2100, Until Discontinu ed, Routine gabapentin Yes 900mg 900 mg, Uni vers (NEURONTIN) 12-01 Oral, TID, it y of capsule 900 01:00: First dose [place] mg 00 (after Medical last Branch modificati on) on Sun11/30/20 at 2000, Until Discontinu ed, Routine insulin NPH No 15U 15 Units, Univers (HUMULIN N) 11-30 Subcutaneo i ty of injection 14:00: 17:36 us, QAM, [place] 15 Units 00 :36 First dose Medic al (after Branch last modificati on) on Sun11/30/20 at 0900, Until Discontinu ed, Routine insulin NPH No 13U 13 Units, Univers (HUMULIN N) 11-29 Subcutaneo i ty of injection 22:00: 17:36 us, QPM, [place] 13 Units 00 :36 First dose Medic al (after Branch last modificati on) on Sun11/29/20 at 1700, Until Discontinu ed, Routine Sliding No Subcutaneo Uni vers Scale 11-29 us, Q4H, ity of Insulin - 21:00: 17:36 First dose [place] Lispro 00 :36 (after Medical (HumaLOG) + last Branch Fsbg modificati Testing on) on Sun11/29/20 at 1600, Until Discontinu ed, Routine insulin No 6U 6 Units, Unive rs lispro 11-29 Subcutaneo ity of (human) 14:30: 17:36 us, TID [place] (HumaLOG 00 :36 MEALS, Medical U-100) First dose Branch injection 6 (after Units last modificati on) on Sun11/29/20 at 0930, Until Discontinu ed, Routine insulin NPH No 14U 14 Units, Univers (HUMULIN N) 11-29 Subcutaneo i ty of injection 14:30: 18:35 us, QAM, [place] 14 Units 00 :22 First dose Medic al (after Branch last modificati on) on Sun11/29/20 at 0930, Until Discontinu ed, Routine insulin NPH No 11U 11 Units, Univers (HUMULIN N) 11-29 Subcutaneo i ty of injection 14:00: 14:17 us, QAM, [place] 11 Units 00 :02 First dose Medic al (after Branch last modificati on) on 11/29/20 at 0900, Until Discontinu ed, Routine insulin NPH No 9U 9 Units, U nivers (HUMULIN N) 11-28 Subcutaneo i ty of injection 9 22:00: 14:17 us, QPM, [place] Units 00 :02 First dose Medical (after Branch last modificati on) on [place] 11/28/20 at 1700, Until Discontinu ed, Routine Sliding Subcutaneo Uni vers Scale 11-28 us, TID ity of Insulin - 17:00: 18:35 MEALS+HS, [place] Lispro 00 :22 First dose Medical (HumaLOG) + (after Branch Fsbg last Testing modificati on) on [place] 11/28/20 at 1200, Until Discontinu ed, Routine insulin No 4U 4 Units, Unive rs lispro 11-28 Subcutaneo ity of (human) 17:00: 14:17 us, TID [place] (HumaLOG 00 :02 MEALS, Medical U-100) First dose Branch injection 4 (after Units last modificati on) on [place] 11/28/20 at 1200, Until Discontinu ed, Routine pregabalin No 100mg 100 mg, Un annabel (LYRICA) 11-28 0601 Oral, TID, ity of capsule 100 15:15: 21:25 First dose [place] mg 00 :39 on [place] Medical 11/28/20 at Branch 1015, Until Discontinu ed, Routine
sales team member approving Restricted medication : JERONIMO HA pantoprazol Yes 40mg 40 mg, Univ ers e 11-28 Oral, BID, ity of (PROTONIX) 01:00: First dose [place] EC tablet 00 on Sat Medical 40 mg 11/27/20 at Branch 2000, Until Discontinu ed, Routine ciprofloxac 2020- No 750mg 750 mg, U nivers in HCl 11-27 Oral, ity of (CIPRO) 23:00: 13:57 Q12HA2, [place] tablet 750 00 :56 First dose Med ical mg on Sat Branch 11/27/20 at 1800, Until Discontinu ed, FUNMI
Re ason for Anti-Infec tive: Documented Infection< br>Documen marcelina Infection Site: Wound
D uration of Therapy: 7 days gabapentin 2020- No 600mg 600 mg, Un annabel (NEURONTIN) 11-27 Oral, TID, i ty of tablet 600 19:00: 21:19 First dose [place] mg 00 :38 (after Medical last Branch modificati on) on [facility] 11/27/20 at 1400, Until Discontinu ed, Routine HYDROcodone Yes 1{tbl} 1 tablet, Univers -acetaminop 11-27 Oral, ity of hen (NORCO) 14:57: Q6HPRN, [place] as 10-325 mg 06 Starting Medica l tablet 1 Sat [place] tablet 11/27/20 at 0957, Until Discontinu ed, Routine, Pain (scale 4-6) FENTanyl PF Yes 50ug 50 mcg, Uni vers (SUBLIMAZE 11-27 Slow IV ity of (PF)) 14:56: Push, [place] injection 51 Q4HPRN, Medical 50 mcg Starting Branch 11/27/20 at 0956, Until Discontinu ed, Routine, Pain (scale 7-10) insulin NPH 2020- No 14U 14 Units, Univers (HUMULIN N) 11-27 05-30 Subcutaneo i ty of injection 14:00: 16:54 us, QAM, [place] as 14 Units 00 :12 First dose Medic al (after Branch last modificati on) on 11/27/20 at 0900, Until Discontinu ed, Routine Sliding 2020- No Subcutaneo Uni vers Scale 11-27 05-30 us, Q4H, ity of Insulin - 01:00: 16:54 [place] dose [place] Lispro 00 :12 (after Medical (HumaLOG) + last Branch Fsbg modificati Testing on) on Sun11/26/20 at 2000, Until Discontinu ed, Routine Sliding Yes Subcutaneo Univ ers Scale 11-26 us, TID ity of Insulin - 22:00: MEALS+HS, [place] as Lispro 00 First dose Medical (HumaLOG) + (after Branch Fsbg last Testing modificati on) on Sun11/26/20 at 1700, Until Discontinu ed, Routine insulin NPH Yes 17U 17 Units, U nivers (HUMULIN N) 11-26 Subcutaneo it y of injection 22:00: [place], QPM, [place] 17 Units 00 First dose Medic al on Sun11/26/20 at 1700, Until Discontinu ed, Routine insulin 2020- No 5U 5 Units, Unive rs lispro 11-26 Subcutaneo ity of (human) 22:00: 16:54 us, TID [place] (HumaLOG 00 :12 MEALS, Medical U-100) First dose Branch injection 5 (after Units last modificati on) on Sun11/26/20 at 1700, Until Discontinu ed, Routine insulin NPH 2020- No 10U 10 Units, Univers (HUMULIN N) 11-26 Subcutaneo i ty of injection 22:00: 16:54 us, QPM, [place] 10 Units 00 :12 First dose Medic al (after Branch last modificati on) on Sun11/26/20 at 1700, Until Discontinu ed, Routine albumin 2020- No 25g 25 g, IV Unive rs (ALBUMINAR- 11-26 Infusion, it y of 5) 5 % 18:45: 18:45 ONCE, 1 [place] injection 00 :00 dose, Fri Medic al 25 g 11/26/20 at Branch 1345, 500 mL
Naida cation: THERMAL INJURY: FLUID RESUSCITAT ION
Com ments: Within 24 hours, use of albumin generally not indicated unless predicted resuscitat ion volume exceeds 6 mL/kg/%TBS A. sennosides Yes 8.6mg 8.6 mg, Uni vers (SENOKOT) 11-26 Oral, ity of tablet 8.6 14:00: DAILY, [place] mg 00 First dose Medical on Sun Branch 11/26/20 at 0900, Until Discontinu ed, Routine docusate Yes 100mg 100 mg, Unive rs (COLACE) 11-26 Oral, ity of capsule 100 14:00: DAILY, [place] mg 00 First dose Medical on Sun Branch 11/26/20 at 0900, Until Discontinu ed, Routine insulin NPH 2020-0 Yes 19U 19 Units, U nivers (HUMULIN N) 11-26 Subcutaneo it y of injection 14:00: us, QAM, [place] 19 Units 00 First dose Medic al on Sun Branch 11/26/20 at 0900, Until Discontinu ed, Routine sennosides Yes 8.6mg 8.6 mg, Uni vers (SENOKOT) 11-26 Oral, ity of tablet 8.6 14:00: DAILY, [place] mg 00 First dose Medical on Sun Branch 11/26/20 at 0900, Until Discontinu ed, Routine docusate Yes 100mg 100 mg, Unive rs (COLACE) 11-26 Oral, ity of capsule 100 14:00: DAILY, [place] mg 00 First dose Medical on Sun11/26/20 at 0900, Until Discontinu ed, Routine insulin NPH 2020- No 19U 19 Units, Univers (HUMULIN N) 11-26 Subcutaneo i ty of injection 14:00: 21:40 us, QAM, [place] 19 Units 00 :03 First dose Medic al on Sun Branch 11/26/20 at 0900, Until Discontinu ed, Routine insulin Yes 8U 8 Units, Univer s lispro 11-26 Subcutaneo ity of (human) 13:00: us, TID [place] (HumaLOG 00 MEALS, Medical U-100) First dose Branch injection 8 on Sun Units 11/26/20 at 0800, Until Discontinu ed, Routine insulin 2020-2020- No 8U 8 Units, Unive rs lispro 11-26 Subcutaneo ity of (human) 13:00: 21:40 us, TID [place] (HumaLOG 00 :03 MEALS, Medical U-100) First dose Branch injection 8 on Sun Units 11/26/20 at 0800, Until Discontinu ed, Routine heparin Yes 5000U 5,000 Univers (porcine) 5-28 Units, ity of injection 11:00: [place]cutaneo [place] 5,000 Units 00 us, Q8H, [facility] First dose Branch on Sun11/26/20 at 0600, Until Discontinu ed, Routine heparin Yes 5000U 5,000 Univers (porcine) 5-28 Units, ity of injection 11:00: [place]cutaneo [place] 5,000 Units 00 us, Q8H, [facility] First dose Branch on Sun11/26/20 at 0600, Until Discontinu ed, Routine gabapentin Yes 300mg 300 mg, Uni vers (NEURONTIN) 11-26 Oral, TID, it y of capsule 300 01:00: First dose [place] mg 00 on Nathalie Medical 11/25/20 at [place] 1999, Until Discontinu ed, Routine gabapentin 2020- No 300mg 300 mg, Un annabel (NEURONTIN) 11-26 Oral, TID, i ty of capsule 300 01:00: 14:57 First dose [place] mg 00 :52 on [facility] 11/25/20 at [place] 1999, Until Discontinu ed, Routine lactated 2020- No 500mL at 999 Unive rs ringers IV 11-26 mL/hr, 500 it y of infusion 00:15: 23:25 mL, [place] 500 mL 00 :00 Intravenou Medical s, ONCE, 1 Branch dose, [facility] 11/25/20 at 1915, Routine morpHINE 30 Yes Univer s mg/30 mL 11-25 ity of (fixed 23:30: [place] dose) [employer] 00 Medical injection Branch morpHINE 30 2020- No Unive rs mg/30 mL 11-25 ity of (fixed 23:30: 14:57 [place] dose) [employer] 00 :51 Medical injection Branch D5W 0.45% 2020- No IV Univers NaCl 11-25 Infusion, ity of (1/2NS) 1 L 23:15: 16:07 at 100 [place] + KCL 20 00 :47 mL/hr, Medical mEq CONTINUOUS Branch , Starting Sun11/25/20 at 1815, Until Sun11/26/20 at 1107, Routine D5W 0.45% 2020- No IV Univers NaCl 11-25 Infusion, ity of (1/2NS) 1 L 22:30: 23:11 at 50 [place] + KCL 20 00 :53 mL/hr, Medical mEq CONTINUOUS Branch , Starting Sun11/25/20 at 1730, Until Sun11/25/20 at 1811, Routine naloxone Yes .1mg 0.1 mg, Univer s (NARCAN) 11-25 Slow IV ity of injection 22:15: Push, [place] 0.1 mg 19 SEE-INSTRU Medical CTIONS, Branch Starting Sun11/25/20 at 1715, Until Discontinu ed, Routine morpHINE 2 Yes Slow IV Univ ers mg/mL LOAD 11-25 Push, ity of & RESCUE 22:15: Routine [place] INJECTION 19 Medical SYRG Branch naloxone Yes .1mg 0.1 mg, Univer s (NARCAN) 11-25 Slow IV ity of injection 22:15: Push, [place] 0.1 mg 19 SEE-INSTRU Medical CTIONS, Branch Starting [place]ie 11/25/20 at 1715, Until Discontinu ed, Routine D5W 0.45% 2020- No IV Univers NaCl 11-25 Infusion, ity of (1/2NS) 1 L 10:00: 22:17 at 75 [place] + KCL 20 00 :36 mL/hr, Medical mEq CONTINUOUS Branch , Starting Sun11/25/20 at 0500, Until Sun11/25/20 at 1717, Routine Sliding 2020- No Subcutaneo Uni vers Scale 11-25 us, Q4H, ity of Insulin - 05:15: 17:54 First dose [place] Lispro 00 :20 (after Medical (HumaLOG) + last Branch Fsbg modificati Testing on) on Sun11/25/20 at 0015, Until Discontinu ed, Routine insulin NPH 2020- No 17U 17 Units, Univers (HUMULIN N) 11-24 Subcutaneo i ty of injection 22:00: 21:23 us, QPM, 1 [place] 17 Units 00 :00 dose, Medical First dose Branch (after last modificati on) on Sun11/24/20 at 1700, Routine heparin 2020- No 5000U 5,000 Univers (porcine) 11-24 Units, ity of injection 19:00: 01:52 Subcutaneo [place] 5,000 Units 00 :00 us, Q8H, 2 Me dical doses, Branch First dose (after last modificati on) on Sun11/24/20 at 1400, Last dose on Sun11/24/20 at 2200, Routine insulin NPH 2020- No 19U 19 Units, Univers (HUMULIN N) 11-24 Subcutaneo i ty of injection 14:00: 13:48 us, QAM, 1 [place] 19 Units 00 :00 dose, Medical First dose Branch (after last modificati on) on Sun11/24/20 at 0900, Routine insulin 2020- No 8U 8 Units, Unive rs lispro 11-24 Subcutaneo ity of (human) 13:00: 21:23 us, TID [place] (HumaLOG 00 :00 MEALS, 3 Medical U-100) doses, Branch injection 8 First dose Units (after last modificati on) on Sun11/24/20 at 0800, Last dose on Sun11/24/20 at 1700, Routine Sliding No Subcutaneo Uni vers Scale 11-23 us, TID ity of Insulin - 22:00: 05:11 MEALS+HS, [place] Lispro 00 :37 First dose Medical (HumaLOG) + (after Branch Fsbg last Testing modificati on) on Sun11/23/20 at 1700, Until Discontinu ed, Routine insulin 2020- No 8U 8 Units, Unive rs lispro 11-23 Subcutaneo ity of (human) 22:00: 12:18 us, TID [place] (HumaLOG 00 :18 MEALS, Medical U-100) First dose Branch injection 8 (after Units last modificati on) on Sun11/23/20 at 1700, Until Discontinu ed, Routine insulin NPH 2020- No 17U 17 Units, Univers (HUMULIN N) 11-23 Subcutaneo i ty of injection 22:00: 12:18 us, QPM, [place] 17 Units 00 :18 First dose Medic al (after Branch last modificati on) on Sun11/23/20 at 1700, Until Discontinu ed, Routine insulin NPH No 15U 15 Units, Univers (HUMULIN N) 11-23 Subcutaneo i ty of injection 14:00: 21:02 us, QAM, [place] 15 Units 00 :10 First dose Medic al (after Branch last modificati on) on Sun11/23/20 at 0900, Until Discontinu ed, Routine insulin No 6U 6 Units, Unive rs lispro 11-23 Subcutaneo ity of (human) 13:00: 21:02 us, TID [place] (HumaLOG 00 :10 MEALS, Medical U-100) First dose Branch injection 6 (after Units last modificati on) on Sun11/23/20 at 0800, Until Discontinu ed, Routine Sliding No Subcutaneo Uni vers Scale 11-23 us, Q3H, ity of Insulin - 01:00: 21:03 First dose [place] Lispro 00 :16 (after Medical (HumaLOG) + last Branch Fsbg modificati Testing on) on Sun11/22/20 at 2000, Until Discontinu ed, Routine ciprofloxac Yes 750mg 750 mg, Un annabel in HCl 5-24 Oral, ity of (CIPRO) 23:00: Q12HA2, [place] tablet 750 00 First dose Med ical mg on Sun11/22/20 at 1800, Until Discontinu ed, FUNMI
Re ason for Anti-Infec tive: Documented Infection< br>Documen marcelina Infection Site: Skin / Soft Tissue<br& gt;Duratio n of Therapy: 14 days ciprofloxac 2020- No 750mg 750 mg, U nivers in HCl 11-22 05-29 Oral, ity of (CIPRO) 23:00: 14:57 Q12HA2, [place] tablet 750 00 :51 First dose Med ical mg on Sun Branch 11/22/20 at 1800, Until Discontinu ed, FUNMI
Re ason for Anti-Infec tive: Documented Infection< br>Documen marcelina Infection Site: Skin / Soft Tissue<br& gt;Duratio n of Therapy: 14 days insulin NPH No 10U 10 Units, Univers (HUMULIN N) 11-22 Subcutaneo i ty of injection 22:00: 05:19 us, QPM, [place] 10 Units 00 :22 First dose Medic al (after Branch last modificati on) on Sun11/22/20 at 1700, Until Discontinu ed, Routine insulin 2020- No 5U 5 Units, Unive rs lispro 11-22 Subcutaneo ity of (human) 17:00: 05:19 us, TID [place] (HumaLOG 00 :22 MEALS, Medical U-100) First dose Branch injection 5 (after Units last modificati on) on Sun11/22/20 at 1200, Until Discontinu ed, Routine Sliding 2020- No Subcutaneo Uni vers Scale 11-22 05-24 us, Q4H, ity of Insulin - 17:00: 23:09 First dose [place] Lispro 00 :36 (after Medical (HumaLOG) + last Branch Fsbg modificati Testing on) on Sun11/22/20 at 1200, Until Discontinu ed, Routine Sliding 2020- No Subcutaneo Uni vers Scale 11-22 05-24 us, Q4H, ity of Insulin - 05:15: 15:07 First dose [place] Lispro 00 :00 (after Medical (HumaLOG) + last Branch Fsbg modificati Testing on) on Sun11/22/20 at 0015, Until Discontinu ed, Routine Sliding 2020- No Subcutaneo Uni vers Scale 11-21 05-24 us, TID ity of Insulin - 17:00: 05:03 MEALS+HS, [place] Lispro 00 :18 First dose Medical (HumaLOG) + (after Branch Fsbg last Testing modificati on) on 11/21/21 at 1200, Until Discontinu ed, Routine insulin NPH No 10U 10 Units, Univers (HUMULIN N) 11-21 Subcutaneo i ty of injection 14:00: 15:06 us, QAM, [place] 10 Units 00 :22 First dose Medic al (after Branch last modificati on) on [place] 11/21/20 at 0900, Until Discontinu ed, Routine insulin NPH No 8U 8 Units, U nivers (HUMULIN N) 11-20 Subcutaneo i ty of injection 8 22:00: 15:06 us, QPM, [place] Units 00 :22 First dose Medical (after Branch last modificati on) on 11/20/20 at 1700, Until Discontinu ed, Routine insulin No 4U 4 Units, Unive rs lispro 11-20 Subcutaneo ity of (human) 17:00: 15:06 us, TID [place] (HumaLOG 00 :22 MEALS, Medical U-100) First dose Branch injection 4 (after Units last modificati on) on 11/20/20 at 1200, Until Discontinu ed, Routine Sliding Subcutaneo Uni vers Scale 11-19 , TID ity of Insulin - 22:00: 14:54 MEALS+HS, [place] Lispro 00 :41 First dose Medical (HumaLOG) + (after Branch Fsbg last Testing modificati on) on Sun11/19/20 at 1700, Until Discontinu ed, Routine ceFEPIme No 2000mg 2,000 mg, U nivers (MAXIPIME) 11-19 IV ity of 2,000 mg in 19:00: 15:00 [place], [place] NaCl 0.9% 00 :26 TID, First Medi alexis (NS) 100 mL dose on Branc h MINI-BAG Sun11/19/20 at 1400, Until Discontinu ed, 100 mL
Reas on for Anti-Infec tive: Documented Infection< br>Documen marcelina Infection Site: Wound
D uration of Therapy: Other (see Comments) insulin NPH Yes 12U 12 Units, U nivers (HUMULIN N) 11-18 Subcutaneo it y of injection 22:00: [place], QPM, [place] 12 Units 00 First dose Medic al on [facility] 11/18/20 at 1700, Until Discontinu ed, Routine insulin NPH 2020- No 12U 12 Units, Univers (HUMULIN N) 11-18 Subcutaneo i ty of injection 22:00: 16:54 us, QPM, [place] 12 Units 00 :16 First dose Medic al on [facility] 11/18/20 at 1700, Until Discontinu ed, Routine polyethylen Yes 17g 17 g, Unive rs e glycol 5-20 Oral, ity of 3350 powder 14:00: DAILY, [place] 17 g 00 First dose Medical on [facility] 11/18/20 at 0900, Until Discontinu ed, Routine insulin NPH Yes 14U 14 Units, U nivers (HUMULIN N) 11-18 Subcutaneo it y of injection 14:00: us, QAM, [place] 14 Units 00 First dose Medic al (after Branch last modificati on) on [facility] 11/18/20 at 0900, Until Discontinu ed, Routine polyethylen Yes 17g 17 g, Unive rs e glycol 5-20 Oral, ity of 3350 powder 14:00: DAILY, [place] 17 g 00 First dose Medical on [facility] 11/18/20 at 0900, Until Discontinu ed, Routine polyethylen Yes 17g 17 g, Unive rs e glycol 5-20 Oral, ity of 3350 powder 14:00: DAILY, [place] 17 g 00 First dose Medical on [facility] 11/18/20 at 0900, Until Discontinu ed, Routine insulin NPH 2020- No 14U 14 Units, Univers (HUMULIN N) 11-18 Subcutaneo i ty of injection 14:00: 16:54 us, QAM, [place] 14 Units 00 :16 First dose Medic al (after Branch last modificati on) on [facility] 11/18/20 at 0900, Until Discontinu ed, Routine insulin Yes 6U 6 Units, Univer s lispro 5-20 Subcutaneo ity of (human) 13:00: us, TID [place] (HumaLOG 00 MEALS, Medical U-100) First dose Branch injection 6 (after Units last modificati on) on Sun11/18/20 at 0800, Until Discontinu ed, Routine insulin 2020- No 6U 6 Units, Unive rs lispro 5-20 05-22 Subcutaneo ity of (human) 13:00: 16:54 us, TID [place] (HumaLOG 00 :16 MEALS, Medical U-100) First dose Branch injection 6 (after Units last modificati on) on Sun11/18/20 at 0800, Until Discontinu ed, Routine heparin Yes 5000U 5,000 Univers (porcine) 5-20 Units, ity of injection 11:00: Subcutaneo [place] 5,000 Units 00 us, Q8H, [facility] First dose Branch on Sun11/18/20 at 0600, Until Discontinu ed, Routine heparin 2020- No 5000U 5,000 Univers (porcine) 5-20 05-26 Units, ity of injection 11:00: 12:18 Subcutaneo [place] 5,000 Units 00 :18 us, Q8H, [facility] First dose Branch on Sun11/18/20 at 0600, Until Discontinu ed, Routine D5W 0.45% 2020- No IV Univers NaCl 5-20 05-20 Infusion, ity of (1/2NS) 1 L 03:15: 13:00 at 20 [place] + KCL 20 00 :38 mL/hr, Medical mEq CONTINUOUS Branch , Starting Sun11/17/20 at 2215, Until Sun11/18/20 at 0800, Routine bisacodyL Yes 10mg 10 mg, Univer s (DULCOLAX) 5-20 Rectal, ity of suppository 03:06: QHSPRN, [place] 10 mg 23 Starting Medical Wed Branch 11/17/20 at 2206, Until Discontinu ed, Routine, Constipati on bisacodyL Yes 10mg 10 mg, Univer s (DULCOLAX) 5-20 Rectal, ity of suppository 03:06: QHSPRN, [place] 10 mg 23 Starting Medical Wed Branch 11/17/20 at 2206, Until Discontinu ed, Routine, Constipati on bisacodyL Yes 10mg 10 mg, Univer s (DULCOLAX) 5-20 Rectal, ity of suppository 03:06: QHSPRN, [place] 10 mg 23 Starting Medical Wed Branch 11/17/20 at 2206, Until Discontinu ed, Routine, Constipati on insulin NPH 2020- No 6U 6 Units, U nivers (HUMULIN N) 11-17 Subcutaneo i ty of injection 6 22:00: 21:58 us, QPM, 1 [place] Units 00 :00 dose, Medical First dose Branch on Sun11/17/20 at 1700, Routine bupivacaine 2020- No PRN, Unive rs -epinephrin 11-17 Starting ity of e-pf 15:17: 19:22 [facility] (SENSORCAIN 00 :06 11/17/20 at Ri dical E 1017, Branch W/EPINEPHRI Until Sun NE) 0.5 11/17/20 at %-1:200,000 1422, injection Routine, Intra-op insulin NPH 2020- No 7U 7 Units, U nivers (HUMULIN N) 11-17 Subcutaneo i ty of injection 7 14:00: 12:35 us, QAM, 1 [place] Units 00 :00 dose, Medical First dose Branch on Sun11/17/20 at 0900, Routine D5W 0.45% 2020- No IV Univers NaCl 11-17 Infusion, ity of (1/2NS) 1 L 10:00: 03:03 at 75 [place] + KCL 20 00 :48 mL/hr, Medical mEq CONTINUOUS Branch , Starting Sun11/17/20 at 0500, Until Sun11/17/20 at 2203, Routine heparin 2020- No 5000U 5,000 Univers (porcine) 11-16- Units, ity of injection 19:00: 03:00 Subcutaneo [place] 5,000 Units 00 :00 us, Q8H, 2 Me dical doses, Branch First dose (after last modificati on) on Sun11/16/20 at 1400, Last dose on Sun11/16/20 at 2200, Routine insulin NPH 2020- No 16U 16 Units, Univers (HUMULIN N) 11-16 Subcutaneo i ty of injection 14:00: 15:24 us, QAM, [place] 16 Units 00 :44 First dose Medic al on Sun11/16/20 at 0900, Until Discontinu ed, Routine insulin 2020- No 6U 6 Units, Unive rs lispro 11-15 Subcutaneo ity of (human) 22:00: 01:08 us, TID [place] (HumaLOG 00 :54 MEALS, Medical U-100) First dose Branch injection 6 (after Units last modificati on) on Sun11/15/20 at 1700, Until Discontinu ed, Routine insulin NPH 2020- No 14U 14 Units, Univers (HUMULIN N) 11-15 Subcutaneo i ty of injection 22:00: 15:24 us, QPM, [place] 14 Units 00 :44 First dose Medic al on Sun [place] 11/15/20 at 1700, Until Discontinu ed, Routine nystatin / Yes Topical Univ ers bacitracin- 5-14 (Apply To ity of polymyxin b 14:00: [place]ffected [place] oint 1:1 00 Areas), Medical POLY-MYCO DAILY, Branch (COMPOUNDED First dose ) on Sun11/12/20 at 0900, Until Discontinu ed, Routine nystatin / Yes Topical Univ ers bacitracin- 5-14 (Apply To ity of polymyxin b 14:00: [place]ffected [place] oint 1:1 00 Areas), Medical POLY-MYCO DAILY, Branch (COMPOUNDED First dose ) on Sun11/12/20 at 0900, Until Discontinu ed, Routine nystatin / Yes Topical Univ ers bacitracin- 5-14 (Apply To ity of polymyxin b 14:00: [place]ffected [place] oint 1:1 00 Areas), Medical POLY-MYCO DAILY, Branch (COMPOUNDED First dose ) on Sun11/12/20 at 0900, Until Discontinu ed, Routine nystatin / 0 Yes Topical Univ ers bacitracin- 14 (Apply To ity of polymyxin b 14:00: Affected [place] oint 1:1 00 Areas), Medical POLY-MYCO DAILY, Branch (COMPOUNDED First dose ) on Sun11/12/20 at 0900, Until Discontinu ed, Routine heparin Yes 5000U 5,000 Univers (porcine) 5-14 Units, ity of injection 03:00: Subcutaneo [place] 5,000 Units 00 us, Q8H, [facility] First dose Branch (after last modificati on) on Sun11/11/20 at 2200, Until Discontinu ed, Routine heparin 2020- No 5000U 5,000 Univers (porcine) 5-14 05-18 Units, ity of injection 03:00: 12:38 Subcutaneo [place] 5,000 Units 00 :41 us, Q8H, [facility] First dose Branch (after last modificati on) on Sun11/11/20 at 2200, Until Discontinu ed, Routine sodium 2020- No PRN, Univers hypochlorit 11-11 Starting ity of e 0.025% 18:11: 19:04 [facility] 00 :07 11/11/20 at [facility] solution 1311, Branch Until [place]athal[place] 11/11/20 at 1404, Routine, Intra-op insulin Yes 11U 11 Units, Unive rs glargine 11-11 Subcutaneo ity o f (LANTUS 13:00: us, BID, [place] U-100) 00 First dose Medical injection (after Branch 11 Units last modificati on) on Sun11/11/20 at 0800, Until Discontinu ed, Routine insulin 2020- No 11U 11 Units, Univ ers glargine 11-1117 Subcutaneo ity of (LANTUS 13:00: 19:33 us, BID, [place] U-100) 00 :46 First dose Medical injection (after Branch 11 Units last modificati on) on Sun11/11/20 at 0800, Until Discontinu ed, Routine D5W 0.45% 2020- No IV Univers NaCl 5-13 05-13 Infusion, ity of (1/2NS) 1 L 12:15: 18:28 at 100 [place] + KCL 20 00 :04 mL/hr, Medical mEq CONTINUOUS Branch , Starting [place] 11/11/20 at 0715, Until [place] 11/11/20 at 1328, Routine Sliding Yes Subcutaneo Univ ers Scale 5-13 us, Q4H, ity of Insulin - 02:30: First dose [place] Lispro 00 (after Medical (HumaLOG) + last Branch Fsbg modificati Testing on) on Sun11/10/20 at 2130, Until Discontinu ed, Routine Sliding Yes Subcutaneo Univ ers Scale 5-13 us, Q4H, ity of Insulin - 02:30: First dose [place] Lispro 00 (after Medical (HumaLOG) + last Branch Fsbg modificati Testing on) on Sun11/10/20 at 2130, Until Discontinu ed, Routine Sliding 2020- No Subcutaneo Uni vers Scale 5-13 05-21 us, Q4H, ity of Insulin - 02:30: 20:42 First dose [place] Lispro 00 :00 (after Medical (HumaLOG) + last Branch Fsbg modificati Testing on) on Sun11/10/20 at 2130, Until Discontinu ed, Routine insulin Yes 7U 7 Units, Univer s lispro 11-10 Subcutaneo ity of (human) 22:00: us, TID [place] (HumaLOG 00 MEALS, Medical U-100) First dose Branch injection 7 (after Units last modificati on) on Sun11/10/20 at 1700, Until Discontinu ed, Routine insulin 2020- No 7U 7 Units, Unive rs lispro 11-1017 Subcutaneo ity of (human) 22:00: 19:33 us, TID [place] (HumaLOG 00 :46 MEALS, Medical U-100) First dose Branch injection 7 (after Units last modificati on) on Sun11/10/20 at 1700, Until Discontinu ed, Routine Sliding 2020- No Subcutaneo Uni vers Scale 11-10 us, TID ity of Insulin - 22:00: 02:19 MEALS+HS, [place] Lispro 00 :20 First dose Medical (HumaLOG) + on Wed Branch Fsbg 11/10/20 at Testing 1700, Until Discontinu ed, Routine insulin 2020- No 14U 14 Units, Univ ers glargine 11-10 Subcutaneo ity of (LANTUS 20:02: 20:55 [place], ONCE, [place] U-100) 00 :00 1 dose, Medical injection Wed Branch 14 Units 11/10/20 at 1515, Routine Sliding No Subcutaneo Uni vers Scale 11-10 us, TID ity of Insulin - 17:00: 20:04 MEALS+HS, [place] Lispro 00 :13 First dose Medical (HumaLOG) + on Sun Branch [facility]bg 11/10/20 at Testing 1200, Until Discontinu ed, Routine insulin 2020- No 3U 3 Units, Unive rs lispro 11-10 Subcutaneo ity of (human) 17:00: 20:04 us, TID [place] (HumaLOG 00 :13 MEALS, Medical U-100) First dose Branch injection 3 on [facility] Units 11/10/20 at 1200, Until Discontinu ed, Routine insulin 2020- No 8U 8 Units, Unive rs glargine 11-10 Subcutaneo ity of (LANTUS 15:45: 20:04 us, BID, [place] U-100) 00 :13 First dose Medical injection 8 on [facility] Branch Units 11/10/20 at 1045, Until Discontinu ed, Routine aspirin Yes 325mg 325 mg, Univer s tablet 325 11-09 Oral, ity of mg 14:00: DAILY, [place] 00 First dose Medical on [facility] Branch 11/09/20 at 0900, Until Discontinu ed, Routine omeprazole Yes 20mg 20 mg, Unive rs (PRILOSEC) 5- Oral, ity of capsule 20 14:00: DAILY, [place] mg 00 First dose Medical on [facility] 11/09/20 at 0900, Until Discontinu ed, Routine aspirin 2020-0 Yes 325mg 325 mg, Univer s tablet 325 5-11 Oral, ity of mg 14:00: DAILY, First dose Medical on [facility] 11/09/20 at 0900, Until Discontinu ed, Routine omeprazole 2020-0 Yes 20mg 20 mg, Unive rs (PRILOSEC) 5-11 Oral, ity of capsule 20 14:00: DAILY, [place] mg First dose Medical on [facility] 11/09/20 at 0900, Until Discontinu ed, Routine aspirin 2020-0 Yes 325mg 325 mg, Univer s tablet 325 5-11 Oral, ity of mg 14:00: DAILY, First dose Medical on [facility] 11/09/20 at 0900, Until Discontinu ed, Routine aspirin 2020-0 Yes 325mg 325 mg, Univer s tablet 325 5-11 Oral, ity of mg 14:00: DAILY, First dose Medical on [facility] 11/09/20 at 0900, Until Discontinu ed, Routine omeprazole 2020-0 Yes 20mg 20 mg, Unive rs (PRILOSEC) 5- Oral, ity of capsule 20 14:00: DAILY, [place] mg First dose Medical on [facility] 11/09/20 at 0900, Until Discontinu ed, Routine aspirin 2020-0 Yes 325mg 325 mg, Univer s tablet 325 5-11 Oral, ity of mg 14:00: DAILY, First dose Medical on [facility] 11/09/20 at 0900, Until Discontinu ed, Routine omeprazole 2020-0 Yes 20mg 20 mg, Unive rs (PRILOSEC) 5-11 Oral, ity of capsule 20 14:00: DAILY, mg First dose Medical on [facility] 11/09/20 at 0900, Until Discontinu ed, Routine omeprazole 2020-0 2021- No 20mg 20 mg, Univ ers (PRILOSEC) 5- 05-29 Oral, ity of capsule 20 14:00: 14:57 DAILY, [place] mg 00 :51 First dose Medical on [facility] 11/09/20 at 0900, Until Discontinu ed, Routine atorvastati 2020-0 Yes 10mg 10 mg, Univ ers n (LIPITOR) 5-11 Oral, QHS, it y of tablet 10 02:00: First dose [place] mg 00 on [facility] 11/08/20 at [place] 2100, Until Discontinu ed, Routine atorvastati 2020-0 Yes 10mg 10 mg, Univ ers n (LIPITOR) 5-11 Oral, QHS, it y of tablet 10 02:00: First dose [place] mg 00 on [facility] 11/08/20 at [place] 2100, Until Discontinu ed, Routine atorvastati 2020-0 Yes 10mg 10 mg, Univ ers n (LIPITOR) 5-11 Oral, QHS, it y of tablet 10 02:00: First dose [place] mg 00 on [facility] 11/08/20 at [place] 2100, Until Discontinu ed, Routine atorvastati 2020-0 Yes 10mg 10 mg, Univ ers n (LIPITOR) 5-11 Oral, QHS, it y of tablet 10 02:00: First dose [place] mg 00 on [facility] 11/08/20 at [place] 2100, Until Discontinu ed, Routine atorvastati 0 Yes 10mg 10 mg, Univ ers n (LIPITOR) 5-11 Oral, QHS, it y of tablet 10 02:00: First dose [place] mg 00 on [facility] 11/08/20 at [place] 2100, Until Discontinu ed, Routine sodium 2020-0 Yes 16[oz_a 16 oz, Univer s hypochlorit 5-11 v] Topical, ity of e 0.5% 01:00: BID, First (DAKINS) dose on Medical solution [address] [place] [address] 11/08/20 at 1999, Until Discontinu ed, Routine sodium 2020-0 Yes 16[oz_a 16 oz, Univer s hypochlorit 5-11 v] Topical, ity of e 0.5% 01:00: BID, First (DAKINS) dose on Medical solution [address] [place] [address] 11/08/20 at 1999, Until Discontinu ed, Routine sodium 2020-0 Yes 16[oz_a 16 oz, Univer s hypochlorit 5-11 v] Topical, ity of e 0.5% 01:00: BID, First (DAKINS) 00 dose on Medical solution 16 Mon Branch oz 11/08/20 at 1999, Until Discontinu ed, Routine sodium 2020- No 16[oz_a 16 oz, Unive rs hypochlorit 11-09 05-28 v] Topical, ity of e 0.5% 01:00: 16:07 BID, [place] (DAKINS) 00 :47 dose on Medical solution 16 Mon Branch oz 11/08/20 at 1999, Until Discontinu ed, Routine insulin Yes 2U/h 2 Units/hr Univ ers regular 5-10 (2 mL/hr), ity of human 23:43: IV [place] (HUMULIN R) 13 Infusion, Med ical 100 Units TITRATE, Branch in NaCl Parameters 0.9% (NS) in Admin. 100 mL Instr., infusion Starting 11/08/20 at 1843
In itiation of insulin drip:&nbsp ; If BG >180 mg/dL x2, begin continuous intravenou s infusion of regular Insulin (100 units/100 mL NS) at the following rate:&nbsp ; &nb sp; 1 unit/hr (1 mL/hr) if initial BG > 180 mg/dL but <= 220 mg/dL.&nbs p;2 units/hr (2 mL/hr) if initial BG > 220 mg/dL.&nbs p; Ch michael BG at least every hour until normalized (three consecutiv e BG measuremen ts greater than 140 mg/dL and <= 180 mg/dL).&nb sp; I f BG is normalized , obtain BG Q2H and PRN. Achieve and maintain normoglyce shaneka with the following treatment table &n bsp;For BG <= 70 mg/dL, stop insulin infusion, assure adequate glucose intake, give 50 mL (1 amp) D50W IV bolus and check BG in 15 min. 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 housekeeping manager (Refer to initiation section to restart insulin).& nbsp;&nbsp ;For BG < 140 mg/dL, stop insulin and check BG in 30 min (Refer to initiation section to restart insulin).& nbsp;&nbsp ;For BG > 140 mg/dL but <= 180 mg/dL, recheck BG in 1 hour if changes, recheck BG in 2 hours if stable for 3 consecutiv e readings.& nbsp;&nbsp ;If BG is steady no rate change needed and recheck BG in 2 hours.&nbs p; If BG falls by > 20 mg/dL from previous reading or decreases with 3 consecutiv e measuremen ts then reduce insulin infusion by 0.5 to 1 unit/hr, recheck BG in 1 hour.&nbsp ; &nb sp; F or BG > 180 mg/dL, recheck BG in 1 hour.&nbsp ; If BG falls by < 50 mg/dL from previous measure then increase insulin infusion by 1 to 2 units/hr, recheck BG in 1 hour.&nbsp ; If BG falls by => 50 mg/dL from previous measure then no rate change needed, recheck BG in 1 hour.&nbsp ; Not hiral ICU Put In Beat Adjuster if BG remains > 220 mg/dL for longer than 4 hours despite treatment.
insulin 2020- No 2U/h 2 Units/hr Uni vers regular 11-08-12 (2 mL/hr), ity o f human 23:43: 16:30 IV [place] (HUMULIN R) 13 :10 Infusion, Med ical 100 Units TITRATE, Branch in NaCl Parameters 0.9% (NS) in Admin. 100 mL Instr., infusion Starting 11/08/20 at 1843
In itiation of insulin drip:&nbsp ; If BG >180 mg/dL x2, begin continuous intravenou s infusion of regular Insulin (100 units/100 mL NS) at the following rate:&nbsp ; &nb sp; 1 unit/hr (1 mL/hr) if initial BG > 180 mg/dL but <= 220 mg/dL.&nbs p;2 units/hr (2 mL/hr) if initial BG > 220 mg/dL.&nbs p; Ch michael BG at least every hour until normalized (three consecutiv e BG measuremen ts greater than 140 mg/dL and <= 180 mg/dL).&nb sp; I f BG is normalized , obtain BG Q2H and PRN. Achieve and maintain normoglyce shaneka with the following treatment table &n bsp;For BG <= 70 mg/dL, stop insulin infusion, assure adequate glucose intake, give 50 mL (1 amp) D50W IV bolus and check BG in 15 min. 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 housekeeping manager (Refer to initiation section to restart insulin).& nbsp;&nbsp ;For BG < 140 mg/dL, stop insulin and check BG in 30 min (Refer to initiation section to restart insulin).& nbsp;&nbsp ;For BG > 140 mg/dL but <= 180 mg/dL, recheck BG in 1 hour if changes, recheck BG in 2 hours if stable for 3 consecutiv e readings.& nbsp;&nbsp ;If BG is steady no rate change needed and recheck BG in 2 hours.&nbs p; If BG falls by > 20 mg/dL from previous reading or decreases with 3 consecutiv e measuremen ts then reduce insulin infusion by 0.5 to 1 unit/hr, recheck BG in 1 hour.&nbsp ; &nb sp; F or BG > 180 mg/dL, recheck BG in 1 hour.&nbsp ; If BG falls by < 50 mg/dL from previous measure then increase insulin infusion by 1 to 2 units/hr, recheck BG in 1 hour.&nbsp ; If BG falls by => 50 mg/dL from previous measure then no rate change needed, recheck BG in 1 hour.&nbsp ; Not hiral ICU Put In Beat Adjuster if BG remains > 220 mg/dL for longer than 4 hours despite treatment.
D5W 0.45% 2020- No IV Univers NaCl 5-10 05-11 Infusion, ity of (1/2NS) 1 L 20:00: 03:02 at 20 [place] + KCL 20 00 :27 mL/hr, Medical mEq CONTINUOUS Branch , Starting 11/08/20 at 1500, Until Sun11/08/20 at 2202, Routine lactated 2020-0 2021- No 1000mL at 999 Univ ers ringers IV 5-10 05-10 mL/hr, ity of infusion 19:45: 18:56 1,000 mL, Jelani as 1,000 mL 00 :00 Intravenou Medic al s, ONCE, 1 Branch dose, Sun11/08/20 at 1445, Routine diphenhydrA 2021-0 Yes 25mg 25 mg, Univ ers MINE 5-10 Oral, ity of (BENADRYL) 15:55: Q4HPRN, [place] tablet 25 34 Starting Medica l mg [facility] 11/08/20 at 1055, Until Discontinu ed, Routine, Itching diphenhydrA 2021-0 Yes 25mg 25 mg, Univ ers MINE 5-10 Oral, ity of (BENADRYL) 15:55: Q4HPRN, [place] tablet 25 34 Starting Medica l mg [facility] 11/08/20 at 1055, Until Discontinu ed, Routine, Itching diphenhydrA 2021-0 Yes 25mg 25 mg, Univ ers MINE 5-10 Oral, ity of (BENADRYL) 15:55: Q4HPRN, [place] tablet 25 34 Starting Medica l mg [facility] Branch 11/08/20 at 1055, Until Discontinu ed, Routine, Itching diphenhydrA 2021-0 Yes 25mg 25 mg, Univ ers MINE 5-10 Oral, ity of (BENADRYL) 15:55: Q4HPRN, [place] tablet 25 34 Starting Medica l mg [facility] Branch 11/08/20 at 1055, Until Discontinu ed, Routine, Itching diphenhydrA 2021-0 Yes 25mg 25 mg, Univ ers MINE 5-10 Oral, ity of (BENADRYL) 15:55: Q4HPRN, [place] tablet 25 34 Starting Medica l mg [facility] 11/08/20 at 1055, Until Discontinu ed, Routine, Itching ondansetron 2021-0 Yes 4mg 4 mg, Slow Univers (ZOFRAN 5-10 IV Push, ity of (PF)) 15:54: Q6HPRN, [place] injection 4 44 Starting Medi alexis mg [facility] 11/08/20 at 1054, Until Discontinu ed, Routine, Nausea and Vomiting (N/V) ondansetron 2021-0 Yes 4mg 4 mg, Slow Univers (ZOFRAN 5-10 IV Push, ity of (PF)) 15:54: Q6HPRN, [place] injection 4 44 Starting Medi alexis mg [facility] 11/08/20 at 1054, Until Discontinu ed, Routine, Nausea and Vomiting (N/V) ondansetron 2021-0 Yes 4mg 4 mg, Slow Univers (ZOFRAN 5-10 IV Push, ity of (PF)) 15:54: Q6HPRN, [place] injection 4 44 Starting Medi alexis mg [facility] 11/08/20 at 1054, Until Discontinu ed, Routine, Nausea and Vomiting (N/V) ondansetron 2021-0 Yes 4mg 4 mg, Slow Univers (ZOFRAN 5-10 IV Push, ity of (PF)) 15:54: Q6HPRN, [place] injection 4 44 Starting Medi alexis mg [facility] 11/08/20 at 1054, Until Discontinu ed, Routine, Nausea and Vomiting (N/V) ondansetron 1-0 Yes 4mg 4 mg, Slow Univers (ZOFRAN 5-10 IV Push, ity of (PF)) 15:54: Q6HPRN, [place] injection 4 44 Starting Medi alexis mg [facility] 11/08/20 at 1054, Until Discontinu ed, Routine, Nausea and Vomiting (N/V) morpHINE 2021-0 Yes 2mg 2 mg, Slow Uni vers injection 2 5-10 IV Push, ity of mg 15:54: Q3HPRN, [place] 35 Starting [facility] 11/08/20 at 1054, Until Discontinu ed, Routine, Pain (scale 7-10) morpHINE 2021-0 Yes 2mg 2 mg, Slow Uni vers injection 2 5-10 IV Push, ity of mg 15:54: Q3HPRN, [place] 35 Starting [facility] 11/08/20 at 1054, Until Discontinu ed, Routine, Pain (scale 7-10) morpHINE 2021-0 Yes 2mg 2 mg, Slow Uni vers injection 2 5-10 IV Push, ity of mg 15:54: Q3HPRN, [place] 35 Starting Medical [facility] Branch 11/08/20 at 1054, Until Discontinu ed, Routine, Pain (scale 7-10) morpHINE 2020-0 Yes 2mg 2 mg, Slow Uni vers injection 2 5-10 IV Push, ity of mg 15:54: Q3HPRN, [place] 35 Starting Medical [facility] Branch 11/08/20 at 1054, Until Discontinu ed, Routine, Pain (scale 7-10) morpHINE 2020-0 2020- No 2mg 2 mg, Slow Un annabel injection 2 5-10 - IV Push, ity of mg 15:54: 14:57 Q3HPRN, [place] 35 :51 Starting [facility] Branch 11/08/20 at 1054, Until 11/27/20 at 0957, Routine, Pain (scale 7-10) HYDROcodone 2020-0 Yes 1{tbl} 1 tablet, Univers -acetaminop 5-10 Oral, ity of hen (NORCO 15:54: Q4HPRN, [place] 5) 5-325 mg 22 Starting Medi alexis tablet 1 Mon Branch tablet 11/08/20 at 1054, Until Discontinu ed, Routine, Pain (scale 4-6) HYDROcodone 2020-0 Yes 1{tbl} 1 tablet, Univers -acetaminop 5-10 Oral, ity of hen (NORCO 15:54: Q4HPRN, [place] 5) 5-325 mg 22 Starting Medi alexis tablet 1 Mon Branch tablet 11/08/20 at 1054, Until Discontinu ed, Routine, Pain (scale 4-6) HYDROcodone 2020-0 Yes 1{tbl} 1 tablet, Univers -acetaminop 5-10 Oral, ity of hen (NORCO 15:54: Q4HPRN, [place] 5) 5-325 mg 22 Starting Medi alexis tablet 1 Mon Branch tablet 11/08/20 at 1054, Until Discontinu ed, Routine, Pain (scale 4-6) HYDROcodone 2020-0 Yes 1{tbl} 1 tablet, Univers -acetaminop 5-10 Oral, ity of hen (NORCO 15:54: Q4HPRN, [place] 5) 5-325 mg 22 Starting Medi alexis tablet 1 Mon Branch tablet 11/08/20 at 1054, Until Discontinu ed, Routine, Pain (scale 4-6) HYDROcodone 2020-0 2020- No 1{tbl} 1 tablet, Univers -acetaminop 11-08 Oral, ity of hen (NORCO 15:54: 14:57 Q4HPRN, [place] 5) 5-325 mg 22 :51 Starting Medi alexis tablet 1 Mon Branch tablet 11/08/20 at 1054, Until 11/27/20 at 0957, Routine, Pain (scale 4-6) acetaminoph 1-0 Yes 500mg 500 mg, Un annabel en 5-10 Oral, ity of (TYLENOL) 15:53: Q6HPRN, [place] tablet 500 33 Starting Medic al mg Mon Branch 11/08/20 at 1053, Until Discontinu ed, Routine, Alternate with ibuprofen for pain scale 1-3 acetaminoph 2020-0 Yes 500mg 500 mg, Un annabel en 5-10 Oral, ity of (TYLENOL) 15:53: Q6HPRN, [place] tablet 500 33 Starting Medic al mg Mon Branch 11/08/20 at 1053, Until Discontinu ed, Routine, Alternate with ibuprofen for pain scale 1-3 acetaminoph 2020-0 Yes 500mg 500 mg, Un annabel en 5-10 Oral, ity of (TYLENOL) 15:53: Q6HPRN, [place] tablet 500 33 Starting Medic al mg Mon Branch 11/08/20 at 1053, Until Discontinu ed, Routine, Alternate with ibuprofen for pain scale 1-3 acetaminoph 1-0 Yes 500mg 500 mg, Un annabel en 5-10 Oral, ity of (TYLENOL) 15:53: Q6HPRN, [place] tablet 500 33 Starting Medic al mg Mon Branch 11/08/20 at 1053, Until Discontinu ed, Routine, Alternate with ibuprofen for pain scale 1-3 acetaminoph 2021-0 Yes 500mg 500 mg, Un annabel en 5-10 Oral, ity of (TYLENOL) 15:53: Q6HPRN, [place] tablet 500 33 Starting Medic al mg Mon Branch 11/08/20 at 1053, Until Discontinu ed, Routine, Alternate with ibuprofen for pain scale 1-3 ibuprofen 1-0 Yes 400mg 400 mg, Univ ers (IBU) 5-10 Oral, ity of tablet 400 15:53: Q6HPRN, [place] mg 21 Starting Medical Mon Branch 11/08/20 at 1053, Until Discontinu ed, Routine, Pain (scale 1-3), Alternate with acetaminop hen ampicillin- 2020-0 Yes 3g 3 g, IV Uni vers sulbactam 5-10 Piggyback, ity of (UNASYN) 3 14:15: Q6H ABX, [place] as g in NaCl 00 First dose Medi alexis 0.9% (NS) on Mon Branch 100 mL 11/08/20 at [place] 0915, Until Discontinu ed, 100 mL
Reas on for Anti-Infec tive: Documented Infection< br>Documen marcelina Infection Site: Skin / Soft Tissue< br>Duratio n of Therapy: 10 days ampicillin- 2020-0 Yes 3g 3 g, IV Uni vers sulbactam 5-10 Piggyback, ity of (UNASYN) 3 14:15: Q6H ABX, [place] g in NaCl 00 First dose Medi alexis 0.9% (NS) on Mon Branch 100 mL 11/08/20 at [place] 0915, Until Discontinu ed, 100 mL
Reas on for Anti-Infec tive: Documented Infection< br>Documen marcelina Infection Site: Skin / Soft Tissue< br>Duratio n of Therapy: 10 days ampicillin- 2020-0 Yes 3g 3 g, IV Uni vers sulbactam 5-10 Piggyback, ity of (UNASYN) 3 14:15: Q6H ABX, [place] g in NaCl 00 First dose Medi alexis 0.9% (NS) on Mon Branch 100 mL 11/08/20 at [place] 0915, Until Discontinu ed, 100 mL
Reas on for Anti-Infec tive: Documented Infection< br>Documen marcelina Infection Site: Skin / Soft Tissue< br>Duratio n of Therapy: 10 days ampicillin- 2020-0 2021- No 3g 3 g, IV Un annabel sulbactam 5-10 05-21 Piggyback, ity of (UNASYN) 3 14:15: 17:21 Q6H ABX, [place] g in NaCl 00 :03 First dose Medi aleixs 0.9% (NS) on Mon Branch 100 mL 11/08/20 at [place] 0915, Until Discontinu ed, 100 mL
Reas on for Anti-Infec tive: Documented Infection< br>Documen marcelina Infection Site: Skin / Soft Tissue< br>Duratio n of Therapy: 10 days HYDROcodone 2020- No 1{tbl} 1 tablet, Univers -acetaminop 11-08 Oral, ity of hen (NORCO 13:15: 13:27 ONCE, 1 [place] as 5) 5-325 mg 00 :00 dose, Mon Med ical tablet 1 11/08/20 at [facility] h tablet 0815, Routine, PACU sodium 2020- No PRN, Univers hypochlorit 11-08 Starting ity of e 0.25% 12:57: 13:55 [facility] (DAKIN'S 00 :19 11/08/20 at Medic al SOLUTION) 0757, Branch solution Until [facility] 11/08/20 at 0855, Routine, Intra-op Sliding 2020- No Subcutaneo Uni vers Scale 11-08 us, Q4H, ity of Insulin - 01:30: 22:44 First dose [place] lispro 00 :46 (after Medical (humaLOG) + last Branch Fsbg modificati Testing on) on [place] 11/07/20 at 2030, Until Discontinu ed, Routine insulin 2020- No 15U 15 Units, Univ ers glargine 11-08 Subcutaneo ity of (LANTUS 01:00: 22:44 us, BID, [place] U-100) 00 :46 First dose Medical injection (after Branch 15 Units last modificati on) on [place] 11/07/20 at 2000, Until Discontinu ed, Routine vancomycin 2020- No 1250mg 1,250 mg, Univers 1250 mg in 11-07 IV ity of NS 250 mL 18:30: 13:00 Piggyback, [place] RTU IV 00 :57 Q8H ABX, Medical Piggyback First dose Bran ch 1,250 mg on [place] 11/07/20 at 1330, Until Discontinu ed
Reas on for Anti-Infec tive: Documented Infection< br>Documen marcelina Infection Site: Other
O ther site: Foot
Du ration of Therapy: 14 days insulin No 10U 10 Units, Univ ers lispro 11-07 Subcutaneo ity of (human) 17:30: 22:19 us, TID [place] (HumaLOG 00 :22 MEALS, Medical U-100) First dose Branch injection (after 10 Units last modificati on) on 11/07/20 at 1230, Until Discontinu ed, Routine meropenem No 500mg 500 mg, IV Univers (MERREM) 11-07 Piggyback, ity of 500 mg in 14:01: 13:00 Administer [place] NaCl 0.9% 00 :57 over 60 Medical (NS) 100 mL Minutes, Bran ch [place]I-BAG Q6H ABX, First dose (after last modificati on) on 11/07/20 at 0915, Until Discontinu ed, FUNMI
Re stricted use approved by: [facility]
Samreen son for Anti-Infec tive: Documented Infection< br>Documen marcelina Infection Site: Other
O ther site: Foot
Du ration of Therapy: 14 days insulin 2020- No 7U 7 Units, Unive rs lispro 11-07 Subcutaneo ity of (human) 13:00: 17:06 us, TID [place] (HumaLOG 00 :33 MEALS, Medical U-100) First dose Branch injection 7 (after Units last modificati on) on 11/07/20 at 0800, Until Discontinu ed, Routine Sliding No Subcutaneo Uni vers Scale 11-07 us, Q4H, ity of Insulin - 05:00: 01:20 First dose [place] lispro 00 :14 (after Medical (humaLOG) + last Branch Fsbg modificati Testing on) on 11/07/20 at 0000, Until Discontinu ed, Routine insulin No 10U 10 Units, Univ ers glargine 5-09 05-09 Subcutaneo ity of (LANTUS 01:15: 17:06 us, BID, [place] U-100) 00 :33 First dose Medical injection (after Branch 10 Units last modificati on) on 11/06/20 at 2015, Until Discontinu ed, Routine Sliding No Subcutaneo Uni vers Scale 11-06-09 us, Q3H, ity of Insulin - 23:15: 02:06 First dose [place] lispro 00 :26 (after Medical (humaLOG) + last Branch Fsbg modificati Testing on) on 11/06/20 at 1815, Until Discontinu ed, Routine insulin 2020- No 6U 6 Units, Unive rs lispro 11-06 Subcutaneo ity of (human) 22:00: 23:03 us, TID [place] (HumaLOG 00 :04 MEALS, Medical U-100) First dose Branch injection 6 (after Units last modificati on) on 11/06/20 at 1700, Until Discontinu ed, Routine Sliding 2020- No Subcutaneo Uni vers Scale 11-06 us, Q4H, ity of Insulin - 21:00: 23:03 First dose [place] lispro 00 :04 on Sat Medical (humaLOG) + 11/06/20 at [facility] Fsbg 1600, Testing Until Discontinu ed, Routine gadoteridol 2020- No [id number] .2mL/kg 13.34 mL Univers (PROHANCE-1 11-06 (0.2 mL/kg i ty of 5 mL) 19:00: 19:00 ?66.7 kg), [place] injection 00 :00 Intravenou Medi alexis 13.34 mL s, ONCE, 1 Branc h dose, 11/06/20 at 1400, Routine insulin 2020- No 3U 3 Units, Unive rs lispro 11-06 Subcutaneo ity of (human) 17:45: 16:33 us, ONCE, [place] (HumaLOG 00 :00 1 dose, Medical U-100) 11/06/20 Branch injection 3 at 1245, Units Routine insulin 2020- No 4U 4 Units, Unive rs glargine 11-06 Subcutaneo ity of (LANTUS 17:30: 16:30 us, ONCE, [place] U-100) 00 :00 1 dose, Medical injection 4 11/06/20 Br anch Units at 1230, FUNMI Sliding 2020- No Subcutaneo Uni vers Scale 11-06 us, Q4H, ity of Insulin-Reg 17:00: 16:29 First dose [place] ular + Fsbg 00 :41 on Sat Medica l Testing 11/06/20 at Branch 1200, Until Discontinu ed, Routine glucagon Yes 1mg 1 mg, Univers (GLUCAGEN 11-06 Intramuscu ity of DIAGNOSTIC 14:53: lar, PRN, [place] KIT) 02 Starting Medical injection 1 11/06/20 Br anch mg at 0953, Until Discontinu ed, FUNMI, Blood Glucose < or = 70 mg/dL and patient is unable to swallow or has mental changes. glucagon Yes 1mg 1 mg, Univers (GLUCAGEN 11-06 Intramuscu ity of DIAGNOSTIC 14:53: [place], PRN, [place] KIT) 02 Starting Medical injection 1 11/06/20 Br anch mg at 0953, Until Discontinu ed, FUNMI, Blood Glucose < or = 70 mg/dL and patient is unable to swallow or has mental changes. glucagon Yes 1mg 1 mg, Univers (GLUCAGEN 11-06 Intramuscu ity of DIAGNOSTIC 14:53: lar, PRN, [place] KIT) 02 Starting Medical injection 1 11/06/20 Br anch mg at 0953, Until Discontinu ed, FUNMI, Blood Glucose < or = 70 mg/dL and patient is unable to swallow or has mental changes. glucagon 0 Yes 1mg 1 mg, Univers (GLUCAGEN 08 Intramuscu ity of DIAGNOSTIC 14:53: [place], PRN, [place] KIT) 02 Starting Medical injection 1 11/06/20 Br anch mg at 0953, Until Discontinu ed, FUNMI, Blood Glucose < or = 70 mg/dL and patient is unable to swallow or has mental changes. glucagon 2021-0 Yes 1mg 1 mg, Univers (GLUCAGEN 5-08 Intramuscu ity of DIAGNOSTIC 14:53: lar, PRN, [place] KIT) 02 Starting Medical injection 1 11/06/20 Br anch mg at 0953, Until Discontinu ed, FUNMI, Blood Glucose < or = 70 mg/dL and patient is unable to swallow or has mental changes. dextrose 50 2020-0 Yes 25mL 25 mL, Univ ers % in water 5-08 Slow IV ity of (D50W) 14:53: Push, PRN, [place] injection 01 Starting Medica l 25 mL 11/06/20 Branch at 0953, Until Discontinu ed, FUNMI, Blood Glucose < or = 70 mg/dL and patient is unable to swallow or has mental status changes. dextrose 50 2020-0 Yes 25mL 25 mL, Univ ers % in water 5-08 Slow IV ity of (D50W) 14:53: Push, PRN, [place] injection 01 Starting Medica l 25 mL 11/06/20 Branch at 0953, Until Discontinu ed, FUNMI, Blood Glucose < or = 70 mg/dL and patient is unable to swallow or has mental status changes. dextrose 50 2020-0 Yes 25mL 25 mL, Univ ers % in water 5-08 Slow IV ity of (D50W) 14:53: Push, PRN, [place] injection 01 Starting Medica l 25 mL 11/06/20 Branch at 0953, Until Discontinu ed, FUNMI, Blood Glucose < or = 70 mg/dL and patient is unable to swallow or has mental status changes. dextrose 50 2020-0 Yes 25mL 25 mL, Univ ers % in water 5-08 Slow IV ity of (D50W) 14:53: Push, PRN, [place] injection 01 Starting Medica l 25 mL 11/06/20 Branch at 0953, Until Discontinu ed, FUNMI, Blood Glucose < or = 70 mg/dL and patient is unable to swallow or has mental status changes. dextrose 50 2020-0 Yes 25mL 25 mL, Univ ers % in water 5-08 Slow IV ity of (D50W) 14:53: Push, PRN, [place] injection 01 Starting Medica l 25 mL 11/06/20 Branch at 0953, Until Discontinu ed, FUNMI, Blood Glucose < or = 70 mg/dL and patient is unable to swallow or has mental status changes. multivitami Yes 1{tbl} 1 tablet, Univers n tablet 1 5-08 Oral, ity of tablet 14:00: DAILY, [place] First dose Medical on [facility] 11/06/20 at 0900, Until Discontinu ed, Routine multivitami Yes 1{tbl} 1 tablet, Univers n tablet 1 5-08 Oral, ity of tablet 14:00: DAILY, [place] First dose Medical on [facility] 11/06/20 at 0900, Until Discontinu ed, Routine multivitami Yes 1{tbl} 1 tablet, Univers n tablet 1 5-08 Oral, ity of tablet 14:00: DAILY, [place] First dose Medical on [facility] 11/06/20 at 0900, Until Discontinu ed, Routine multivitami Yes 1{tbl} 1 tablet, Univers n tablet 1 -08 Oral, ity of tablet 14:00: DAILY, [place] First dose Medical on [facility] 11/06/20 at 0900, Until Discontinu ed, Routine multivitami Yes 1{tbl} 1 tablet, Univers n tablet 1 5-08 Oral, ity of tablet 14:00: DAILY, [place] First dose Medical on [facility] 11/06/20 at 0900, Until Discontinu ed, Routine vancomycin No 1000mg 1,000 mg, Univers (VANCOCIN) 11-06 IV ity of 1,000 mg in 10:00: 12:52 Piggyback, [place] NaCl 0.9% 00 :27 Q12H ABX, Medic al (NS) 250 mL First dose Br anch VIAL-MATE (after IV last piggyback reorder) on [facility] 11/06/20 at 0500, Until Discontinu ed, 250 mL
Reas on for Anti-Infec tive: Documented Infection< br>Documen marcelina Infection Site: Other
O ther site: Foot
Du ration of Therapy: 14 days meropenem 2020- No 1000mg 1,000 mg, Univers (MERREM) 5-08 05-09 IV ity of 1,000 mg in 07:00: 12:52 Piggyback, [place] NaCl 0.9% 00 :27 Administer [facility] (NS) 100 mL over 60 Branc h IV Minutes, piggyback Q8H ABX, First dose (after last reorder) on Sun11/06/20 at 0200, Until Discontinu ed, FUNMI
Re stricted use approved by: [facility]
Samreen son for Anti-Infec tive: Documented Infection< br>Documen marcelina Infection Site: Other
O ther site: Foot
Du ration of Therapy: 14 days heparin 2021-0 Yes 5000U 5,000 [facility] (porcine) 5-08 Units, ity of injection 03:00: [place] 5,000 Units 00 us, Q8H, Medi alexis First dose Branch on Sun11/05/20 at 2200, Until Discontinu ed, Routine heparin 2020-0 2020- No 5000U 5,000 [facility] (porcine) 5-08 05-13 Units, ity of injection 03:00: 11:11 Subcut[place] 5,000 Units 00 :00 us, Q8H, [facility] alexis First dose Branch on Sun11/05/20 at 2200, Until Discontinu ed, Routine zinc 2020-0 Yes 220mg 220 mg, Univers sulfate 5-08 Oral, TID, ity of (ORAZINC) 01:00: First dose [place] capsule 220 00 on Sun Medica l mg 11/05/20 at Branch 2000, Until Discontinu ed, Routine ascorbic 2020-0 Yes 500mg 500 mg, Unive rs acid 5-08 Oral, BID, ity of (vitamin C) 01:00: First dose [place] (VITAMIN C) 00 on Sun Medica l tablet 500 11/05/20 at Bran ch mg 1999, Until Discontinu ed, Routine chlorhexidi 2020-0 Yes 15mL 15 mL, Univ ers ne 5-08 Oral ity of (PERIDEX) 01:00: ([place] 0.12 % 00 Spit Out), Medical mouthwash BID, First Bran ch 15 mL dose on Sun11/05/20 at 2000, Until Discontinu ed, Routine zinc 2020-0 Yes 220mg 220 mg, [facility] sulfate 5-08 Oral, TID, ity of (ORAZINC) 01:00: First dose [place] capsule 220 00 on Fri Medica l mg 11/05/20 at Branch 1999, Until Discontinu ed, Routine ascorbic 2021-0 Yes 500mg 500 mg, Unive rs acid 5-08 Oral, BID, ity of (vitamin C) 01:00: First dose [place] (VITAMIN C) 00 on Fri Medica l tablet 500 11/05/20 at Bran ch mg 1999, Until Discontinu ed, Routine chlorhexidi 2021-0 Yes 15mL 15 mL, Univ ers ne 5-08 Oral ity of (PERIDEX) 01:00: ([place] 0.12 % 00 Spit Out), Medical mouthwash BID, First [place] ch 15 mL dose on Sun11/05/20 at 1999, Until Discontinu ed, Routine zinc 2021-0 Yes 220mg 220 mg, [facility] sulfate 5-08 Oral, TID, ity of (ORAZINC) 01:00: First dose [place] capsule 220 00 on Fri Medica l mg 11/05/20 at Branch 1999, Until Discontinu ed, Routine ascorbic 2021-0 Yes 500mg 500 mg, Unive rs acid 5-08 Oral, BID, ity of (vitamin C) 01:00: First dose [place] (VITAMIN C) 00 on Sun Medica l tablet 500 11/05/20 at Bran ch mg 1999, Until Discontinu ed, Routine chlorhexidi 2021-0 Yes 15mL 15 mL, Univ ers ne 5-08 Oral ity of (PERIDEX) 01:00: ([place] 0.12 % 00 Spit Out), Medical mouthwash BID, First [place] ch 15 mL dose on Sun11/05/20 at 1999, Until Discontinu ed, Routine zinc 2021-0 Yes 220mg 220 mg, [facility] sulfate 5-08 Oral, TID, ity of (ORAZINC) 01:00: First dose [place] capsule 220 00 on Fri Medica l mg 11/05/20 at Branch 1999, Until Discontinu ed, Routine ascorbic 2021-0 Yes 500mg 500 mg, Unive rs acid 5-08 Oral, BID, ity of (vitamin C) 01:00: First dose [place] (VITAMIN C) 00 on Fri Medica l tablet 500 11/05/20 at Bran ch mg 1999, Until Discontinu ed, Routine chlorhexidi 2020-0 Yes 15mL 15 mL, Univ ers ne 5-08 Oral ity of (PERIDEX) 01:00: ([place] 0.12 % 00 Spit Out), Medical mouthwash BID, First Bran ch 15 mL dose on Sun11/05/20 at 1999, Until Discontinu ed, Routine zinc 0 Yes 220mg 220 mg, [facility] sulfate 08 Oral, TID, ity of (ORAZINC) 01:00: First dose [place] capsule 220 00 on Sun Medica l mg 11/05/20 at Branch 1999, Until Discontinu ed, Routine ascorbic Yes 500mg 500 mg, Unive rs acid 5-08 Oral, BID, ity of (vitamin C) 01:00: First dose [place] (VITAMIN C) 00 on Sun Medica l tablet 500 11/05/20 at Bran ch mg 1999, Until Discontinu ed, Routine chlorhexidi 0 Yes 15mL 15 mL, Univ ers ne 5-08 Oral ity of (PERIDEX) 01:00: ([place] 0.12 % 00 Spit Out), Medical mouthwash BID, First Bran ch 15 mL dose on Sun11/05/20 at 1999, Until Discontinu ed, Routine insulin 2020- No 8U 8 Units, Unive rs glargine 11-06 05-09 Subcutaneo ity of (LANTUS 01:00: 01:02 , BID, [place] U-100) 00 :08 First dose Medical injection 8 on Sun Branch Units 11/05/20 at 1999, Until Discontinu ed, Routine vancomycin 2020- No 15mg/kg 1,000 mg Univers (VANCOCIN) 11-05 05-07 (rounded ity of 1,000 mg in 22:45: 23:27 from [place] NaCl 0.9% 00 :00 1,000.5 mg Medi alexis (NS) 250 mL = 15 mg/kg Br anch VIAL-MATE ?66.7 kg), IV IV piggyback Piggyback, ONCE, 1 dose, Sun11/05/20 at 1745, 250 mL
Reas on for Anti-Infec tive: Empiric Therapy for Suspected Infection< br>Empiric Therapy Site: Skin / Soft tissue
Duration of therapy: 72 hours meropenem 2020- No 1000mg 1,000 mg, Univers (MERREM) 11-05 Intravenou ity of 1,000 mg in 22:45: 23:56 s, [place] NaCl 0.9% 00 :00 Administer Medi alexis (NS) 100 mL over 60 Branc h IV Minutes, piggyback ONCE, 1 dose, Sun11/05/20 at 1745, STAT
Re stricted use approved by: SOTERO VELOZ, [phone], ADULT ID
Reas on for Anti-Infec tive: Empiric Therapy for Suspected Infection< br>Empiric Therapy Site: Skin / Soft tissue
Duration of therapy: 72 hours insulin 2020- No 3U 3 Units, Unive rs lispro 11-05 Subcutaneo ity of (human) 22:30: 16:29 us, TID [place] (HumaLOG 00 :41 MEALS, Medical U-100) First dose Branch injection 3 (after Units last modificati on) on Sun11/05/20 at 1730, Until Discontinu ed, Routine insulin No 1U/h 1 Units/hr Uni vers regular 11-05 (1 mL/hr), ity o f human 20:20: 15:19 IV [place] (HUMULIN R) 35 :12 Infusion, Med ical 100 Units TITRATE, Branch in NaCl Parameters 0.9% (NS) in Admin. 100 mL Instr., infusion Starting Sun11/05/20 at 1520
Initiatio n of insulin drip:&nbsp ; If BG >180 mg/dL, begin continuous intravenou s infusion of regular Insulin (100 units/100 mL NS) at the following rate:&nbsp ; &nb sp; 1 unit/hr (1 mL/hr) if initial BG > 180 mg/dL but <= 220 mg/dL.&amp ;nbsp;2 units/hr (2 mL/hr) if initial BG > 220 mg/dL.&nbs p; Ch michael BG at least every hour until normalized (three consecutiv e BG measuremen ts greater than 130 mg/dL and <= 180 mg/dL).&nb sp; I f BG is normalized , obtain BG Q2H and PRN. Maintain normoglyce shaneka with the following treatment table &n bsp;For BG <= 60 mg/dL, stop insulin infusion, assure adequate glucose intake, give 50 mL (1 amp) D50W IV bolus and check BG in 30 min. 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 housekeeping manager (Refer to initiation section to restart insulin).& nbsp;&nbsp ;For BG < 130 mg/dL, stop insulin and check BG in 30 min (Refer to initiation section to restart insulin).& nbsp;&nbsp ;For BG > 130 mg/dL but <= 180 mg/dL, recheck BG in 1 hour if changes, recheck BG in 2 hours if stable for 3 consecutiv e readings.& nbsp;&nbsp ;If BG is steady or rising then no action, recheck BG in 1 to 2 hours.&nbs p; If BG falls by > 20 mg/dL from previous reading or decreases with 3 consecutiv e measuremen ts then reduce insulin infusion by 0.5 to 1 unit/hr, recheck BG in 1 hour.&nbsp ; &nb sp; F or BG > 180 mg/dL, recheck BG in 1 hour.&nbsp ; If BG falls by < 50 mg/dL from previous measure then increase insulin infusion by 1 to 2 units/hr, recheck BG in 1 hour.&nbsp ; If BG falls by => 50 mg/dL from previous measure then no action, recheck BG in 1 hour.&nbsp ; Not hiral ICU Put In Beat Adjuster if BG remains > 220 mg/dL for longer then 6 hours despite treatment.
labetaloL 2020- No 10mg 10 mg, Unive rs (NORMODYNE) 11-05 05- Intravenou i ty of injection 20:20: 20:26 s, ONCE, 1 [place] 10 mg 00 :00 dose, Fri Medical 11/05/20 at Branch 1530, FUNMI acetaminoph 2020-0 2020- No 500mg 500 mg, U nivers en 11-05 05-10 Oral, ity of (TYLENOL) 20:09: 16:04 Q6HPRN, [place] tablet 500 35 :46 Starting Medic al mg Sun11/05/20 Branch at 1509, Until 11/08/20 at 1104, Routine, Pain (scale 4-6) NaCl 0.9% 2020-0 Yes 10mL 10 mL, Univer s (NS) 5-07 Slow IV ity of injection 20:09: Push, PRN, [place] 10 mL 11 Starting Medical Sun11/05/20 Branch at 1509, Until Discontinu ed, Routine, line maintenanc e lidocaine 2020-0 Yes 5mL 5 mL, Univers 1% (PF) 5-07 Subcutaneo ity of (XYLOCAINE) 20:09: us, PRN, [place] injection 5 11 Starting Medi alexis mL 11/05/20 Branch at 1509, Until Discontinu ed, Routine, Local anesthesia NaCl 0.9% 2020-0 Yes 10mL 10 mL, Univer s (NS) 5-07 Slow IV ity of injection 20:09: Push, PRN, [place] 10 mL 11 Starting Medical Sun11/05/20 Branch at 1509, Until Discontinu ed, Routine, line maintenanc e lidocaine 2020-0 Yes 5mL 5 mL, Univers 1% (PF) 5-07 Subcutaneo ity of (XYLOCAINE) 20:09: us, PRN, [place] injection 5 11 Starting Medi alexis mL Sun11/05/20 Branch at 1509, Until Discontinu ed, Routine, Local anesthesia NaCl 0.9% 2020-0 Yes 10mL 10 mL, Univer s (NS) 5-07 Slow IV ity of injection 20:09: Push, PRN, [place] 10 mL 11 Starting Medical Sun11/05/20 Branch at 1509, Until Discontinu ed, Routine, line maintenanc e lidocaine 2020-0 Yes 5mL 5 mL, Univers 1% (PF) 5-07 Subcutaneo ity of (XYLOCAINE) 20:09: us, PRN, [place] injection 5 11 Starting Medi alexis mL Sun11/05/20 Branch at 1509, Until Discontinu ed, Routine, Local anesthesia NaCl 0.9% 2020-0 Yes 10mL 10 mL, Univer s (NS) 5-07 Slow IV ity of injection 20:09: Push, PRN, [place] 10 mL 11 Starting Medical Sun11/05/20 Branch at 1509, Until Discontinu ed, Routine, line maintenanc e lidocaine 2020-0 Yes 5mL 5 mL, Univers 1% (PF) 5- Subcutaneo ity of (XYLOCAINE) 20:09: us, PRN, [place] injection 5 11 Starting Medi alexis mL Sun11/05/20 Branch at 1509, Until Discontinu ed, Routine, Local anesthesia NaCl 0.9% 2020-0 Yes 10mL 10 mL, Univer s (NS) 5- Slow IV ity of injection 20:09: Push, PRN, [place] 10 mL 11 Starting Medical Sun11/05/20 Branch at 1509, Until Discontinu ed, Routine, line maintenanc e lidocaine 2020-0 Yes 5mL 5 mL, Univers 1% (PF) 5 Subcutaneo ity of (XYLOCAINE) 20:09: us, PRN, [place] injection 5 11 Starting Medi alexis mL 11/05/20 Branch at 1509, Until Discontinu ed, Routine, Local anesthesia lactated 2020-0 202- No 1000mL at 50 Unive rs ringers IV 5-07 05-10 mL/hr, ity of infusion 19:30: 16:04 1,000 mL, [place] as 1,000 mL 00 :45 IV Medical Infusion, Branch CONTINUOUS , Starting Sun11/05/20 at 1430, Until Sun11/08/20 at 1104, Routine dextrose 50 2020-0 Yes 50mL 50 mL, Univ ers % in water 5 Slow IV ity of (D50W) 19:20: Push, PRN [place] injection 35 - SEE Medical 50 mL INSTRUCTIO Branch NS, 1 dose, Starting Sun11/05/20 at 1420, Until Discontinu ed, Routine, Blood Glucose <= 60, For use with Normoglyce shaneka Maintenanc e - ICU Patients dextrose 50 2021-0 Yes 50mL 50 mL, Univ ers % in water 5-07 Slow IV ity of (D50W) 19:20: Push, PRN [place] injection 35 - SEE Medical 50 mL INSTRUCTIO Branch NS, 1 dose, Starting Sun11/05/20 at 1420, Until Discontinu ed, Routine, Blood Glucose <= 60, For use with Normoglyce shaneka Maintenanc e - ICU Patients dextrose 50 2020-0 Yes 50mL 50 mL, Univ ers % in water 5-07 Slow IV ity of (D50W) 19:20: Push, PRN [place] injection 35 - SEE Medical 50 mL INSTRUCTIO Branch NS, 1 dose, Starting Sun11/05/20 at 1420, Until Discontinu ed, Routine, Blood Glucose <= 60, For use with Normoglyce shaneka Maintenanc e - ICU Patients dextrose 50 2020-0 Yes 50mL 50 mL, Univ ers % in water 5-07 Slow IV ity of (D50W) 19:20: Push, PRN [place] injection 35 - SEE Medical 50 mL INSTRUCTIO Branch NS, 1 dose, Starting Sun11/05/20 at 1420, Until Discontinu ed, Routine, Blood Glucose <= 60, For use with Normoglyce shaneka Maintenanc e - ICU Patients dextrose 50 2020-0 Yes 50mL 50 mL, Univ ers % in water 5-07 Slow IV ity of (D50W) 19:20: Push, PRN [place] injection 35 - SEE Medical 50 mL INSTRUCTIO Branch NS, 1 dose, Starting Sun11/05/20 at 1420, Until Discontinu ed, Routine, Blood Glucose <= 60, For use with Normoglyce shaneka Maintenanc e - ICU Patients metFORMIN 0 Yes 1000mg Take 1,000 Univers 1,000 mg 5-07 mg by ity of tablet 18:59: mouth 2 [place] 03 (two) Medical times Branch daily with meals. insulin Yes 15U inject 15 Unive rs lispro, 5-07 Units ity of human, 18:59: under the [place] (HUMALOG 03 skin 3 Medical U-100 (three) Branch INSULIN) times 100 unit/mL daily with injection meals. metFORMIN Yes 1000mg Take 1,000 Univers 1,000 mg 5-07 mg by ity of tablet 18:59: mouth 2 [place] 03 (two) Medical times Branch daily with meals. insulin 2021-0 Yes 15U inject 15 Unive rs lispro, 5-07 Units ity of human, 18:59: under the [place] (HUMALOG 03 skin 3 Medical U-100 (three) Branch INSULIN) times 100 unit/mL daily with injection meals. metFORMIN 2020-0 Yes 1000mg Take 1,000 Univers 1,000 mg 5-07 mg by ity of tablet 18:59: mouth 2 [place] 03 (two) Medical times [place] daily with meals. insulin 2020-0 Yes 15U inject 15 Unive rs lispro, 5-07 Units ity of human, 18:59: under the [place] (HUMALOG 03 skin 3 Medical U-100 (three) Branch INSULIN) times 100 unit/mL daily with injection meals. metFORMIN 2020-0 Yes 1000mg Take 1,000 Univers 1,000 mg 5-07 mg by ity of tablet 18:59: mouth 2 [place] 03 (two) [facility] times [place] daily with meals. insulin 2020-0 Yes 15U inject 15 Unive rs lispro, 5-07 Units ity of human, 18:59: under the [place] (HUMALOG 03 skin 3 Medical U-100 (three) Branch INSULIN) times 100 unit/mL daily with injection meals. diphenhydrA 2020-0 202- No 50mg 50 mg, Uni vers MINE 2-04 02-10 Oral, ity of (BENADRYL) 21:00: 19:50 ONCE, 1 J[place]ani as tablet 50 00 :00 dose, Wed Medic al mg 08/11/20 at Branch 1500, Routine metFORMIN 2020-0 Yes 1000mg Take 1,000 Univers 1,000 mg 2-10 mg by ity of tablet 19:22: mouth 2 [place] 24 (two) [facility] times [place] daily with meals. insulin 202-0 Yes 15U inject 15 Unive rs lispro, 2-10 Units ity of human, 19:22: under the [place] (HUMALOG 24 skin 3 Medical U-100 (three) Branch INSULIN) times 100 unit/mL daily with injection meals. metFORMIN 2020-0 Yes 1000mg Take 1,000 Univers 1,000 mg 2-10 mg by ity of tablet 19:22: mouth 2 [place] 24 (two) Medical times [place] daily with meals. insulin 2020-0 Yes 15U inject 15 Unive rs lispro, 2-10 Units ity of human, 19:22: under the [place] (HUMALOG 24 skin 3 Medical U-100 (three) Branch INSULIN) times 100 unit/mL daily with injection meals. metFORMIN Yes 1000mg Take 1,000 Univers 1,000 mg 2-10 mg by ity of tablet 19:22: mouth 2 [place] 24 (two) Medical times Branch daily with meals. insulin Yes 15U inject 15 Unive rs lispro, 2-10 Units ity of human, 19:22: under the [place] (HUMALOG 24 skin 3 Medical U-100 (three) Branch INSULIN) times 100 unit/mL daily with injection meals. diphenhydrA 2020- No [id number] 50mg Take 2 Univers MINE 25 mg 2-10 02-18 tablets by it y of tablet 00:00: 05:59 mouth [place] 00 :00 every 8 Medical (eight) Branch hours as needed for Other (Rash) for up to 7 days. metformin 2019-07- No 500mg Take 500 Un annabel ER 500 mg 2-30 12-30 mg by ity of 24 hr 20:11: 00:00 mouth [place] tablet 49 :00 daily with Medical breakfast. Branch metFORMIN 2019-07 Yes 500mg 500 mg, Univ ers (GLUCOPHAGE 2-30 Oral, BID ity of ) tablet 15:45: MEALS, [place] 500 mg 00 First dose Medical on Sun06/30/20 at 0945, Until Discontinu ed, Routine vancomycin 2019-07 Yes 15mg/kg 1,000 mg Univers (VANCOCIN) 2-30 (rounded ity o f 1,000 mg in 14:45: from [place] NaCl 0.9% 00 1,033.5 mg Medi alexis (NS) 250 mL = 15 mg/kg Br anch VIAL-MATE ?68.9 kg), IV IV piggyback Piggyback, Q12H ABX, First dose (after last modificati on) on Sun06/30/20 at 0845, Until Discontinu ed, 250 mL
Reas on for Anti-Infec tive: Empiric Therapy for Suspected Infection< br>Empiric Therapy Site: Skin / Soft tissue<br& gt;Duratio n of therapy: 7 days insulin 2019-07 Yes 7U 7 Units, Univer s glargine 2-30 Subcutaneo ity o f (LANTUS 02:00: us, BID, [place] U-100) 00 First dose Medical injection 7 on Tue Branch Units 06/29/20 at 1999, Until Discontinu ed, Routine metFORMIN 2019-07- No [id number] 1000mg Take 1 Univers 1,000 mg 2-30 01-30 tablet by ity o f tablet 00:00: 05:59 mouth 2 [place] 00 :00 (two) Medical times Branch daily with meals for 30 days. pioglitazon 2019-07- No [id number] 15mg Take 1 Univers e 15 mg 2-30 01-30 tablet by ity of tablet 00:00: 05:59 mouth [place] 00 :00 daily for Medical 30 days. Branch glipiZIDE 2019-07- No [id number] 5mg Take 1 Univers XL 5 mg 24 2-30 -30 tablet by ity of hr tablet 00:00: 05:59 mouth [place] 00 :00 daily with Medical breakfast Branch for 30 days. metFORMIN 2019-07- No [id number] 1000mg Take 1 Univers 1,000 mg 2-30 01-30 tablet by ity o f tablet 00:00: 05:59 mouth 2 [place] 00 :00 (two) Medical times Branch daily with meals for 30 days. pioglitazon 2019-07- No [id number] 15mg Take 1 Univers e 15 mg 2-30 01-30 tablet by ity of tablet 00:00: 05:59 mouth [place] 00 :00 daily for Medical 30 days. Branch glipiZIDE 2019-07- No [id number] 5mg Take 1 Univers XL 5 mg 24 2-30 01-30 tablet by ity of hr tablet 00:00: 05:59 mouth [place] 00 :00 daily with Medical breakfast Branch for 30 days. metFORMIN 2019-07- No [id number] 1000mg Take 1 Univers 1,000 mg 2-30 01-30 tablet by ity o f tablet 00:00: 05:59 mouth 2 [place] 00 :00 (two) Medical times Branch daily with meals for 30 days. pioglitazon 2019-07- No [id number] 15mg Take 1 Univers e 15 mg 2-30 01-30 tablet by ity of tablet 00:00: 05:59 mouth [place] 00 :00 daily for Medical 30 days. Branch glipiZIDE 2019-07- No [id number] 5mg Take 1 [facility] XL 5 mg 24 2-30 -30 tablet by ity of hr tablet 00:00: 05:59 mouth [place] 00 :00 daily with Medical breakfast [place] for 30 days. metFORMIN 2019-07- No [id number] 1000mg Take 1 Univers 1,000 mg 2-30 -30 tablet by ity o f tablet 00:00: 05:59 mouth 2 [place] 00 :00 (two) Medical times Branch daily with meals for 30 days. pioglitazon 2019-07- No [id number] 15mg Take 1 Univers e 15 mg 2-30 -30 tablet by ity of tablet 00:00: 05:59 mouth [place] 00 :00 daily for Medical 30 days. [place] glipiZIDE 2019-07- No [id number] 5mg Take 1 Univers XL 5 mg 24 2-30 -30 tablet by ity of hr tablet 00:00: 05:59 mouth [place] 00 :00 daily with Medical breakfast [place] for 30 days. metFORMIN 2019-07- No [id number] 1000mg Take 1 Univers 1,000 mg 2-30 -30 tablet by ity o f tablet 00:00: 05:59 mouth 2 [place] 00 :00 (two) Medical times [place] daily with meals for 30 days. pioglitazon 2019-07- No [id number] 15mg Take 1 Univers e 15 mg 2-30 -30 tablet by ity of tablet 00:00: 05:59 mouth [place] 00 :00 daily for Medical 30 days. Branch glipiZIDE 2019-07- No [id number] 5mg Take 1 Univers XL 5 mg 24 2-30 -30 tablet by ity of hr tablet 00:00: 05:59 mouth [place] 00 :00 daily with Medical breakfast [place] for 30 days. metFORMIN 2019-07- No [id number] 1000mg Take 1 Univers 1,000 mg 2-30 -30 tablet by ity o f tablet 00:00: 05:59 mouth 2 [place] 00 :00 (two) Medical times [place] daily with meals for 30 days. pioglitazon 2019-07- No [id number] 15mg Take 1 Univers e 15 mg 2-30 -30 tablet by ity of tablet 00:00: 05:59 mouth [place] 00 :00 daily for Medical 30 days. Branch glipiZIDE 2019-07- No [id number] 5mg Take 1 [facility] XL 5 mg 24 07-31 tablet by ity of hr tablet 00:00: 05:59 mouth [place] 00 :00 daily with Medical breakfast Branch for 30 days. ascorbic 2019-07- No [id number] 500mg Take 1 Univers acid, 07-16 tablet by ity of vitamin C, 00:00: 05:59 mouth 2 [place] as 500 mg 00 :00 (two) Medical tablet times Branch daily for 15 days. ascorbic 2019-07- No [id number] 500mg Take 1 Univers acid, 07-16 tablet by ity of vitamin C, 00:00: 05:59 mouth 2 [place] 500 mg 00 :00 (two) Medical tablet times Branch daily for 15 days. ascorbic 2019-07- No [id number] 500mg Take 1 Univers acid, 07-16 tablet by ity of vitamin C, 00:00: 05:59 mouth 2 [place] 500 mg 00 :00 (two) Medical tablet times Branch daily for 15 days. ascorbic 2019-07 No [id number] 500mg Take 1 Univers acid, 07-16 tablet by ity of vitamin C, 00:00: 05:59 mouth 2 [place] 500 mg 00 :00 (two) Medical tablet times Branch daily for 15 days. ibuprofen 2019-07- No [id number] 600mg Take 1 Univers 600 mg 07-15 tablet by ity of tablet 00:00: 05:59 mouth [place] 00 :00 every 6 Medical (six) Branch hours as needed for Alternate with Peck for pain scale 1-3 for up to 14 days. ibuprofen 2019-07- No [id number] 600mg Take 1 Univers 600 mg 07-15 tablet by ity of tablet 00:00: 05:59 mouth [place] 00 :00 every 6 Medical (six) Branch hours as needed for Alternate with [place] for pain scale 1-3 for up to 14 days. ibuprofen 2019-07- No [id number] 600mg Take 1 Univers 600 mg 07-15 tablet by ity of tablet 00:00: 05:59 mouth [place] 00 :00 every 6 Medical (six) Branch hours as needed for Alternate with [place] for pain scale 1-3 for up to 14 days. ibuprofen 2019-07 No [id number] 600mg Take 1 Univers 600 mg -07-15 tablet by ity of tablet 00:00: 05:59 mouth [place] 00 :00 every 6 Medical (six) Branch hours as needed for Alternate with [place] for pain scale 1-3 for up to 14 days. HYDROcodone 2019-07 No [id number] 1{tbl} Take 1 U nivers -acetaminop 2-31 07- tablet by it y of hen 5-325 00:00: 05:59 mouth [place] mg tablet 00 :00 every 4 Medical (four) Branch hours as needed for Pain (scale 7-10) for up to 7 days. Indication s: acute pain levoFLOXaci 2019-07 No [id number] 500mg Take 1 Univers n 500 mg -07-08 tablet by ity o f tablet 00:00: 05:59 mouth [place] 00 :00 every 24 Medical (twenty-fo Branch ur) hours for 7 days. sulfamethox 2019-07- No [id number] 1{tbl} Take 1 Univers azole-trime -07-08 tablet by it y of thoprim 00:00: 05:59 mouth 2 [place] (BACTRIM) 00 :00 (two) Medical 400-80 mg times Branch per tablet daily for 7 days. HYDROcodone 2019-07 No [id number] 1{tbl} Take 1 U nivers -acetaminop 2-07-08 tablet by it y of hen 5-325 00:00: 05:59 mouth [place] mg tablet 00 :00 every 4 Medical (four) Branch hours as needed for Pain (scale 7-10) for up to 7 days. Indication s: acute pain levoFLOXaci 2019-07 No [id number] 500mg Take 1 Univers n 500 mg 2-30 - tablet by ity o f tablet 00:00: 05:59 mouth [place] 00 :00 every 24 Medical (twenty-fo Branch ur) hours for 7 days. sulfamethox 2019-07- No [id number] 1{tbl} Take 1 Univers azole-trime 07-08 tablet by it y of thoprim 00:00: 05:59 mouth 2 [place] (BACTRIM) 00 :00 (two) Medical 400-80 mg times Branch per tablet daily for 7 days. HYDROcodone 2019-07- No [id number] 1{tbl} Take 1 U nivers -acetaminop 07-08 tablet by it y of hen 5-325 00:00: 05:59 mouth [place] mg tablet 00 :00 every 4 Medical (four) Branch hours as needed for Pain (scale 7-10) for up to 7 days. Indication s: acute pain levoFLOXaci 2019-07- No [id number] 500mg Take 1 Univers n 500 mg 07-08 tablet by ity o f tablet 00:00: 05:59 mouth [place] 00 :00 every 24 Medical (twenty-fo Branch ur) hours for 7 days. sulfamethox 2019-07- No [id number] 1{tbl} Take 1 Univers azole-trime 07-08 tablet by it y of thoprim 00:00: 05:59 mouth 2 [place] (BACTRIM) 00 :00 (two) Medical 400-80 mg times Branch per tablet daily for 7 days. Sliding 2019-07 Yes Subcutaneo Univ ers Scale us, TID ity of Insulin - 23:45: MEALS+HS, [place]elani as Lispro 00 First dose Medical (HumaLOG) + (after Branch Fsbg last Testing modificati on) on Sun06/29/20 at 1745, Until Discontinu ed, Routine insulin 2019-07 Yes 5U 5 Units, Univer s lispro Subcutaneo ity of (human) 23:45: us, TID [place] (HumaLOG 00 MEALS, Medical U-100) First dose Branch injection 5 on Sun Units 06/29/20 at 1745, Until Discontinu ed, Routine multivitami 2019-07 Yes 1{tbl} 1 tablet, Univers n tablet 1 Oral, ity of tablet 15:00: DAILY, [place] 00 First dose Medical on Tu Branch 06/29/20 at 0900, Until Discontinu ed, Routine metFORMIN 2019-07- No 500mg 500 mg, Uni vers (GLUCOPHAGE 06-29 Oral, BID it y of ) tablet 14:00: 23:31 MEALS, [place] 500 mg 00 :59 First dose Medical (after Branch last modificati on) on Sun06/29/20 at 0800, Until Discontinu ed Sliding 2019-07 2020- No Subcutaneo Uni vers Scale 06-29 us, TID ity of Insulin - 03:00: 23:36 MEALS+HS, [place] Lispro 00 :20 First dose Medical (HumaLOG) + on Sun [place] Fsbg 06/28/20 Testing at 2100, Until Discontinu ed, Routine ascorbic 2019-07 Yes 500mg 500 mg, Unive rs acid Oral, BID, ity of (vitamin C) 02:00: First dose [place] (VITAMIN C) 00 on [facility] Medica l tablet 500 06/28/20 Branc h mg at 2000, Until Discontinu ed, Routine chlorhexidi 2019- Yes 15mL 15 mL, Univ ers ne Oral ity of (PERIDEX) 02:00: ([place] 0.12 % 00 Spit Out), Medical mouthwash BID, First Bran ch 15 mL dose on Sun06/28/20 at 2000, Until Discontinu ed, Routine silver 2019-07 Yes Topical, Univers nitrate 0.5 Q6H, First it y of % soak 00:00: dose on [place] topical Sun [facility] 1000 mL 06/28/20 Branch (COMPOUNDED at 1800, ) solution Until Discontinu ed, Routine enoxaparin 2019-07 Yes 40mg 40 mg, Unive rs (LOVENOX) 08-29 Subcutaneo ity of injection 23:00: us, DAILY, [place] 40 mg 00 First dose Medical on [facility] 06/28/20 at 1700, Until Discontinu ed, Routine morpHINE 2019-07 Yes 2mg 2 mg, Slow Uni vers injection 2 08-29 IV Push, ity of mg 22:00: Q4HPRN, [place] 00 Starting Medical [facility] 06/28/20 at 1600, Until Discontinu ed, Routine, Pain (scale 7-10) HYDROcodone 2019- Yes 1{tbl} 1 tablet, Univers -acetaminop 08-29 Oral, ity of hen (NORCO 21:59: Q4HPRN, [place] 5) 5-325 mg 43 Starting Medi alexis tablet 1 Sun Branch tablet 06/28/20 at 1559, Until Discontinu ed, Routine, Pain (scale 7-10) meropenem 2019-07 Yes 500mg 500 mg, IV U nivers (MERREM) 2- Piggyback, ity o f 500 mg [place] 21:15: Administer [place] NaCl 0.9% 00 over 60 Medical (NS) 100 mL Minutes, Bran ch MINI-BAG Q6H ABX, First dose on [facility] 06/28/20 at 1515, Until Discontinu ed, FUNMI
Re stricted use approved by: [facility]
[place] son for Anti-Infec tive: Empiric Therapy for Suspected Infection< br>Empiric Therapy Site: Skin / Soft tissue
Duration of therapy: 7 days metFORMIN 2019-07 No 500mg 500 mg, Uni vers (GLUCOPHAGE 08-29 Oral, ity of ) tablet 20:30: 12:48 DAILY, [place] 500 mg 00 :51 First dose Medical on [facility] Branch 06/28/20 at 1430, Until Discontinu ed zinc 2019-07 Yes 220mg 220 mg, Univers sulfate 08-29 Oral, TID, ity of (ORAZINC) 20:15: [place] capsule 220 00 on [facility] Medica l mg 06/28/20 Branch at 1415, Until Discontinu ed, Routine lactated 2019-07 Yes 1000mL at 20 Univer s ringers IV 2-28 mL/hr, ity of infusion 20:15: 1,000 mL[place] 1,000 [place] 00 IV Medical Infusion, Branch CONTINUOUS , Starting [facility] 06/28/20 at 1415, Until Discontinu ed, Routine vancomycin 2019-07- No 15mg/kg 1,000 mg Univers (VANCOCIN) 08-29 12 (rounded ity of 1,000 mg in 20:15: 12:26 from [place] NaCl 0.9% 00 :18 1,033.5 mg Medi alexis (NS) 250 mL = 15 mg/kg Br anch VIAL-MATE ?68.9 kg), IV IV piggyback Piggyback, Q12H ABX, First dose on [facility] 06/28/20 at 1415, Until Discontinu ed, 250 mL
Reas on for Anti-Infec tive: Empiric Therapy for Suspected Infection< br>Empiric Therapy Site: Skin / Soft tissue
Duration of therapy: 7 days pantoprazol 2019-07 No 40mg 40 mg, IV Univers e 08-29 Piggyback, ity of (PROTONIX) 20:15: 18:39 Q24H, 3 [place] as 40 mg in 00 :00 doses, Medical NaCl 0.9% First dose Bran ch (NS) 100 mL on Sun MINI-BAG 06/28/20 at 1415, Last dose on Sun06/30/20 at 1415, 100 mL Immunizations Ordered Filled Immunization Date Status Comments [facility] e Immunization Name Name SARS-COV-2 COVID-19 2021-05-30 Completed Unive rsity of MODERNA BOOSTER 00:00:00 [place] Med ical VACCINE Branch SARS-COV-2 COVID-19 2021-05-30 Completed Unive rsity of MODERNA BOOSTER 00:00:00 [place] Med ical VACCINE Branch SARS-COV-2 COVID-19 2021-05-30 Completed Unive rsity of MODERNA BOOSTER 00:00:00 [place] Med ical VACCINE Branch SARS-COV-2 COVID-19 2021-05-30 Completed Unive rsity of MODERNA BOOSTER 00:00:00 [place] Med ical VACCINE Branch SARS-COV-2 COVID-19 2021-05-30 Completed Unive rsity of MODERNA BOOSTER 00:00:00 [place] Med ical VACCINE Branch SARS-COV-2 COVID-19 2021-05-30 Completed Unive rsity of MODERNA 0.25ML 00:00:00 [place] Medi alexis BOOSTER VACCINE Branch SARS-COV-2 COVID-19 2021-05-30 Completed Unive rsity of MODERNA 0.25ML 00:00:00 [place] Medi alexis BOOSTER VACCINE Branch SARS-COV-2 COVID-19 2021-05-30 Completed Unive rsity of MODERNA 0.25ML 00:00:00 [place] Medi alexis BOOSTER VACCINE Branch SARS-COV-2 COVID-19 2021-05-30 Completed Unive rsity of MODERNA 0.25ML 00:00:00 [place] Medi alexis BOOSTER VACCINE Branch SARS-COV-2 COVID-19 2021-05-30 Completed Unive rsity of MODERNA 0.25ML 00:00:00 [place] Medi alexis BOOSTER VACCINE Branch SARS-COV-2 COVID-19 2021-05-30 Completed Unive rsity of MODERNA 0.25ML 00:00:00 [place] Medi alexis BOOSTER VACCINE Branch SARS-COV-2 COVID-19 2021-05-30 Completed Unive rsity of MODERNA 0.25ML 00:00:00 [place] Medi alexis BOOSTER VACCINE Branch SARS-COV-2 COVID-19 2021-05-30 Completed Unive rsity of MODERNA 0.25ML 00:00:00 [place] Medi alexis BOOSTER VACCINE Branch SARS-COV-2 COVID-19 2021-05-30 Completed Unive rsity of MODERNA 0.25ML 00:00:00 [place] Medi alexis BOOSTER VACCINE Branch SARS-COV-2 COVID-19 2021-05-30 Completed Unive rsity of MODERNA 0.25ML 00:00:00 [place] Medi alexis BOOSTER VACCINE Branch SARS-COV-2 COVID-19 2021-05-30 Completed Unive rsity of MODERNA 0.25ML 00:00:00 [place] Medi alexis BOOSTER VACCINE Branch SARS-COV-2 COVID-19 2021-05-30 Completed Unive rsity of MODERNA 0.25ML 00:00:00 [place] Medi alexis BOOSTER VACCINE Branch SARS-COV-2 COVID-19 2021-05-30 Completed Unive rsity of MODERNA 0.25ML 00:00:00 [place] Medi alexis BOOSTER VACCINE Branch SARS-COV-2 COVID-19 2021-05-30 Completed Unive rsity of MODERNA 0.25ML 00:00:00 [place] Medi alexis BOOSTER VACCINE Branch SARS-COV-2 COVID-19 2021-05-30 Completed Unive rsity of MODERNA 0.25ML 00:00:00 [place] Medi alexis BOOSTER VACCINE Branch SARS-COV-2 COVID-19 2021-05-30 Completed Unive rsity of MODERNA 0.25ML 00:00:00 [place] Medi alexis BOOSTER VACCINE Branch SARS-COV-2 COVID-19 2021-05-30 Completed Unive rsity of MODERNA 0.25ML 00:00:00 [place] Medi alexis BOOSTER VACCINE Branch SARS-COV-2 COVID-19 2021-05-30 Completed Unive rsity of MODERNA 0.25ML 00:00:00 [place] Medi alexis BOOSTER VACCINE Branch SARS-COV-2 COVID-19 2021-05-30 Completed Unive rsity of MODERNA 0.25ML 00:00:00 [place] Medi alexis BOOSTER VACCINE Branch SARS-COV-2 COVID-19 2021-05-30 Completed Unive rsity of MODERNA 0.25ML 00:00:00 [place] Medi alexis BOOSTER VACCINE Branch SARS-COV-2 COVID-19 2021-05-30 Completed Unive rsity of MODERNA 0.25ML 00:00:00 [place] Medi alexis BOOSTER VACCINE Branch SARS-COV-2 COVID-19 2021-05-30 Completed Unive rsity of MODERNA 0.25ML 00:00:00 [place] Medi alexis BOOSTER VACCINE Branch SARS-COV-2 COVID-19 2021-05-30 Completed Unive rsity of MODERNA 0.25ML 00:00:00 [place] Medi alexis BOOSTER VACCINE Branch SARS-COV-2 COVID-19 2021-05-30 Completed Unive rsity of MODERNA 0.25ML 00:00:00 [place] Medi alexis BOOSTER VACCINE Branch SARS-COV-2 COVID-19 2021-05-30 Completed Unive rsity of MODERNA 0.25ML 00:00:00 [place] Medi alexis BOOSTER VACCINE Branch SARS-COV-2 COVID-19 2021-05-30 Completed Unive rsity of MODERNA 0.25ML 00:00:00 [place] Medi alexis BOOSTER VACCINE Branch SARS-COV-2 COVID-19 2021-05-30 Completed Unive rsity of MODERNA 0.25ML 00:00:00 [place] Medi alexis BOOSTER VACCINE Branch SARS-COV-2 COVID-19 2020-09-26 Completed Unive rsity of MODERNA VACCINE 00:00:00 [place] Med ical Branch SARS-COV-2 COVID-19 2020-09-26 Completed Unive rsity of MODERNA VACCINE 00:00:00 [place] Med ical Branch SARS-COV-2 COVID-19 2020-09-26 Completed Unive rsity of MODERNA VACCINE 00:00:00 [place] [facility] ical Branch SARS-COV-2 COVID-19 2020-09-26 Completed Unive rsity of MODERNA VACCINE 00:00:00 [place] [facility] ical Branch SARS-COV-2 COVID-19 2020-09-26 Completed Unive rsity of MODERNA VACCINE 00:00:00 [place] [facility] ical Branch SARS-COV-2 COVID-19 2020-09-26 Completed Unive rsity of MODERNA VACCINE 00:00:00 [place] [facility] ical Branch SARS-COV-2 COVID-19 2020-09-26 Completed Unive rsity of MODERNA VACCINE 00:00:00 [place] [facility] ical Branch SARS-COV-2 COVID-19 2020-09-26 Completed Unive rsity of MODERNA VACCINE 00:00:00 [place] [facility] ical Branch SARS-COV-2 COVID-19 2020-09-26 Completed Unive rsity of MODERNA VACCINE 00:00:00 [place] [facility] ical Branch SARS-COV-2 COVID-19 2020-09-26 Completed Unive rsity of MODERNA VACCINE 00:00:00 [place] [facility] ical Branch SARS-COV-2 COVID-19 2020-09-26 Completed Unive rsity of MODERNA VACCINE 00:00:00 [place] [facility] ical Branch SARS-COV-2 COVID-19 2020-09-26 Completed Unive rsity of MODERNA VACCINE 00:00:00 [place] [facility] ical Branch SARS-COV-2 COVID-19 2020-09-26 Completed Unive rsity of MODERNA VACCINE 00:00:00 [place] [facility] ical Branch SARS-COV-2 COVID-19 2020-09-26 Completed Unive rsity of MODERNA VACCINE 00:00:00 [place] [facility] ical Branch SARS-COV-2 COVID-19 2020-09-26 Completed Unive rsity of MODERNA VACCINE 00:00:00 [place] [facility] ical Branch SARS-COV-2 COVID-19 2020-09-26 Completed Unive rsity of MODERNA VACCINE 00:00:00 [place] [facility] ical Branch SARS-COV-2 COVID-19 2020-09-26 Completed Unive rsity of MODERNA VACCINE 00:00:00 [place] [facility] ical Branch SARS-COV-2 COVID-19 2020-09-26 Completed Unive rsity of MODERNA VACCINE 00:00:00 [place] [facility] ical Branch SARS-COV-2 COVID-19 2020-09-26 Completed Unive rsity of MODERNA VACCINE 00:00:00 [place] [facility] ical Branch SARS-COV-2 COVID-19 2020-09-26 Completed Unive rsity of MODERNA VACCINE 00:00:00 [place] [facility] ical Branch SARS-COV-2 COVID-19 2020-09-26 Completed Unive rsity of MODERNA VACCINE 00:00:00 [place] [facility] ical Branch SARS-COV-2 COVID-19 2020-09-26 Completed Unive rsity of MODERNA VACCINE 00:00:00 [place] [facility] ical Branch SARS-COV-2 COVID-19 2020-09-26 Completed Unive rsity of MODERNA VACCINE 00:00:00 [place] [facility] ical Branch SARS-COV-2 COVID-19 2020-09-26 Completed Unive rsity of MODERNA VACCINE 00:00:00 [place] [facility] ical Branch SARS-COV-2 COVID-19 2020-09-26 Completed Unive rsity of MODERNA VACCINE 00:00:00 [place] [facility] ical Branch SARS-COV-2 COVID-19 2020-09-26 Completed Unive rsity of MODERNA VACCINE 00:00:00 [place] [facility] ical Branch SARS-COV-2 COVID-19 2020-09-26 Completed Unive rsity of MODERNA VACCINE 00:00:00 [place] [facility] ical Branch SARS-COV-2 COVID-19 2020-09-26 Completed Unive rsity of MODERNA VACCINE 00:00:00 [place] [facility] ical Branch SARS-COV-2 COVID-19 2020-09-26 Completed Unive rsity of MODERNA VACCINE 00:00:00 [place] [facility] ical Branch SARS-COV-2 COVID-19 2020-09-26 Completed Unive rsity of MODERNA VACCINE 00:00:00 [place] [facility] ical Branch SARS-COV-2 COVID-19 2020-09-26 Completed Unive rsity of MODERNA VACCINE 00:00:00 [place] [facility] ical Branch SARS-COV-2 COVID-19 2020-09-26 Completed Unive rsity of MODERNA VACCINE 00:00:00 [place] [facility] ical Branch SARS-COV-2 COVID-19 2020-09-26 Completed Unive rsity of MODERNA VACCINE 00:00:00 [place] [facility] ical Branch SARS-COV-2 COVID-19 2020-09-26 Completed Unive rsity of MODERNA VACCINE 00:00:00 [place] [facility] ical Branch SARS-COV-2 COVID-19 2020-09-26 Completed Unive rsity of MODERNA VACCINE 00:00:00 [place] [facility] ical Branch SARS-COV-2 COVID-19 2020-09-26 Completed Unive rsity of MODERNA VACCINE 00:00:00 [place] [facility] ical Branch SARS-COV-2 COVID-19 2020-09-26 Completed Unive rsity of MODERNA VACCINE 00:00:00 [place] [facility] ical Branch SARS-COV-2 COVID-19 2020-09-26 Completed Unive rsity of MODERNA VACCINE 00:00:00 [place] [facility] ical Branch SARS-COV-2 COVID-19 2020-09-26 Completed Unive rsity of MODERNA VACCINE 00:00:00 [place] [facility] ical Branch SARS-COV-2 COVID-19 2020-09-26 Completed Unive rsity of MODERNA VACCINE 00:00:00 [place] [facility] ical Branch SARS-COV-2 COVID-19 2020-09-26 Completed Unive rsity of MODERNA VACCINE 00:00:00 [place] [facility] ical Branch SARS-COV-2 COVID-19 2020-09-26 Completed Unive rsity of MODERNA VACCINE 00:00:00 [place] [facility] ical Branch SARS-COV-2 COVID-19 2020-09-26 Completed Unive rsity of MODERNA VACCINE 00:00:00 [place] [facility] ical Branch SARS-COV-2 COVID-19 2020-09-26 Completed Unive rsity of MODERNA VACCINE 00:00:00 [place] [facility] ical Branch SARS-COV-2 COVID-19 2020-09-26 Completed Unive rsity of MODERNA VACCINE 00:00:00 [place] [facility] ical Branch SARS-COV-2 COVID-19 2020-09-26 Completed Unive rsity of MODERNA VACCINE 00:00:00 [place] [facility] ical Branch SARS-COV-2 COVID-19 2020-09-26 Completed Unive rsity of MODERNA VACCINE 00:00:00 [place] [facility] ical Branch SARS-COV-2 COVID-19 2020-09-26 Completed Unive rsity of MODERNA VACCINE 00:00:00 [place] [facility] ical Branch SARS-COV-2 COVID-19 2020-09-26 Completed Unive rsity of MODERNA VACCINE 00:00:00 [place] [facility] ical Branch SARS-COV-2 COVID-19 2020-09-26 Completed Unive rsity of MODERNA VACCINE 00:00:00 [place] [facility] ical Branch SARS-COV-2 COVID-19 2020-09-26 Completed Unive rsity of MODERNA VACCINE 00:00:00 [place] [facility] ical Branch SARS-COV-2 COVID-19 2020-09-26 Completed Unive rsity of MODERNA VACCINE 00:00:00 [place] [facility] ical Branch SARS-COV-2 COVID-19 2020-09-26 Completed Unive rsity of MODERNA VACCINE 00:00:00 [place] [facility] ical Branch SARS-COV-2 COVID-19 2020-09-26 Completed Unive rsity of MODERNA VACCINE 00:00:00 [place] [facility] ical Branch SARS-COV-2 COVID-19 2020-09-26 Completed Unive rsity of MODERNA 12+ YRS 00:00:00 [place] Med ical VACCINE Branch SARS-COV-2 COVID-19 2020-09-26 Completed Unive rsity of MODERNA 12+ YRS 00:00:00 [place] Med ical VACCINE Branch SARS-COV-2 COVID-19 2020-09-26 Completed Unive rsity of MODERNA 12+ YRS 00:00:00 [place] Med ical VACCINE Branch SARS-COV-2 COVID-19 2020-09-26 Completed Unive rsity of MODERNA VACCINE 00:00:00 [place] [facility] ical Branch SARS-COV-2 COVID-19 2020-09-26 Completed Unive rsity of MODERNA VACCINE 00:00:00 [place] [facility] ical Branch SARS-COV-2 COVID-19 2020-08-29 Completed Unive rsity of MODERNA VACCINE 00:00:00 [place] [facility] ical Branch SARS-COV-2 COVID-19 2020-08-29 Completed Unive rsity of MODERNA VACCINE 00:00:00 [place] [facility] ical Branch SARS-COV-2 COVID-19 2020-08-29 Completed Unive rsity of MODERNA VACCINE 00:00:00 [place] [facility] ical Branch SARS-COV-2 COVID-19 2020-08-29 Completed Unive rsity of MODERNA VACCINE 00:00:00 [place] [facility] ical Branch SARS-COV-2 COVID-19 2020-08-29 Completed Unive rsity of MODERNA VACCINE 00:00:00 [place] [facility] ical Branch SARS-COV-2 COVID-19 2020-08-29 Completed Unive rsity of MODERNA VACCINE 00:00:00 [place] [facility] ical Branch SARS-COV-2 COVID-19 2020-08-29 Completed Unive rsity of MODERNA VACCINE 00:00:00 [place] [facility] ical Branch SARS-COV-2 COVID-19 2020-08-29 Completed Unive rsity of MODERNA VACCINE 00:00:00 [place] [facility] ical Branch SARS-COV-2 COVID-19 2020-08-29 Completed Unive rsity of MODERNA VACCINE 00:00:00 [place] [facility] ical Branch SARS-COV-2 COVID-19 2020-08-29 Completed Unive rsity of MODERNA VACCINE 00:00:00 [place] [facility] ical Branch SARS-COV-2 COVID-19 2020-08-29 Completed Unive rsity of MODERNA VACCINE 00:00:00 [place] [facility] ical Branch SARS-COV-2 COVID-19 2020-08-29 Completed Unive rsity of MODERNA VACCINE 00:00:00 [place] [facility] ical Branch SARS-COV-2 COVID-19 2020-08-29 Completed Unive rsity of MODERNA VACCINE 00:00:00 [place] [facility] ical Branch SARS-COV-2 COVID-19 2020-08-29 Completed Unive rsity of MODERNA VACCINE 00:00:00 [place] [facility] ical Branch SARS-COV-2 COVID-19 2020-08-29 Completed Unive rsity of MODERNA VACCINE 00:00:00 [place] [facility] ical Branch SARS-COV-2 COVID-19 2020-08-29 Completed Unive rsity of MODERNA VACCINE 00:00:00 [place] [facility] ical Branch SARS-COV-2 COVID-19 2020-08-29 Completed Unive rsity of MODERNA VACCINE 00:00:00 [place] [facility] ical Branch SARS-COV-2 COVID-19 2020-08-29 Completed Unive rsity of MODERNA VACCINE 00:00:00 [place] [facility] ical Branch SARS-COV-2 COVID-19 2020-08-29 Completed Unive rsity of MODERNA VACCINE 00:00:00 [place] [facility] ical Branch SARS-COV-2 COVID-19 2020-08-29 Completed Unive rsity of MODERNA VACCINE 00:00:00 [place] [facility] ical Branch SARS-COV-2 COVID-19 2020-08-29 Completed Unive rsity of MODERNA VACCINE 00:00:00 [place] [facility] ical Branch SARS-COV-2 COVID-19 2020-08-29 Completed Unive rsity of MODERNA VACCINE 00:00:00 [place] [facility] ical Branch SARS-COV-2 COVID-19 2020-08-29 Completed Unive rsity of MODERNA VACCINE 00:00:00 [place] [facility] ical Branch SARS-COV-2 COVID-19 2020-08-29 Completed Unive rsity of MODERNA VACCINE 00:00:00 [place] [facility] ical Branch SARS-COV-2 COVID-19 2020-08-29 Completed Unive rsity of MODERNA VACCINE 00:00:00 [place] [facility] ical Branch SARS-COV-2 COVID-19 2020-08-29 Completed Unive rsity of MODERNA VACCINE 00:00:00 [place] [facility] Branch SARS-COV-2 COVID-19 2020-08-29 Completed Unive rsity of MODERNA VACCINE 00:00:00 [place] [facility] Branch SARS-COV-2 COVID-19 2020-08-29 Completed Unive rsity of MODERNA VACCINE 00:00:00 [place] [facility] Branch SARS-COV-2 COVID-19 2020-08-29 Completed Unive rsity of MODERNA VACCINE 00:00:00 [place] [facility] Branch SARS-COV-2 COVID-19 2020-08-29 Completed Unive rsity of MODERNA VACCINE 00:00:00 [place] [facility] Branch SARS-COV-2 COVID-19 2020-08-29 Completed Unive rsity of MODERNA VACCINE 00:00:00 [place] [facility] Branch SARS-COV-2 COVID-19 2020-08-29 Completed Unive rsity of MODERNA VACCINE 00:00:00 [place] [facility] Branch SARS-COV-2 COVID-19 2020-08-29 Completed Unive rsity of MODERNA VACCINE 00:00:00 [place] [facility] ical Branch SARS-COV-2 COVID-19 2020-08-29 Completed Unive rsity of MODERNA VACCINE 00:00:00 [place] [facility] Branch SARS-COV-2 COVID-19 2020-08-29 Completed Unive rsity of MODERNA VACCINE 00:00:00 [place] [facility] Branch SARS-COV-2 COVID-19 2020-08-29 Completed Unive rsity of MODERNA VACCINE 00:00:00 [place] [facility] Branch SARS-COV-2 COVID-19 2020-08-29 Completed Unive rsity of MODERNA VACCINE 00:00:00 [place] [facility] Branch SARS-COV-2 COVID-19 2020-08-29 Completed Unive rsity of MODERNA VACCINE 00:00:00 [place] [facility] Branch SARS-COV-2 COVID-19 2020-08-29 Completed Unive rsity of MODERNA VACCINE 00:00:00 [place] [facility] Branch SARS-COV-2 COVID-19 2020-08-29 Completed Unive rsity of MODERNA VACCINE 00:00:00 [place] [facility] Branch SARS-COV-2 COVID-19 2020-08-29 Completed Unive rsity of MODERNA VACCINE 00:00:00 [place] [facility] Branch SARS-COV-2 COVID-19 2020-08-29 Completed Unive rsity of MODERNA VACCINE 00:00:00 [place] [facility] Branch SARS-COV-2 COVID-19 2020-08-29 Completed Unive rsity of MODERNA VACCINE 00:00:00 [place] [facility] Branch SARS-COV-2 COVID-19 2020-08-29 Completed Unive rsity of MODERNA VACCINE 00:00:00 [place] [facility] SARS-COV-2 COVID-19 2020-08-29 Completed Unive rsity of MODERNA VACCINE 00:00:00 [place] [facility] SARS-COV-2 COVID-19 2020-08-29 Completed Unive rsity of MODERNA VACCINE 00:00:00 [place] [facility] SARS-COV-2 COVID-19 2020-08-29 Completed Unive rsity of MODERNA VACCINE 00:00:00 [place] [facility] Branch SARS-COV-2 COVID-19 2020-08-29 Completed Unive rsity of MODERNA VACCINE 00:00:00 [place] [facility] Branch SARS-COV-2 COVID-19 2020-08-29 Completed Unive rsity of MODERNA VACCINE 00:00:00 [place] [facility] ical Branch SARS-COV-2 COVID-19 2020-08-29 Completed Unive rsity of MODERNA VACCINE 00:00:00 [place] [facility] ical Branch SARS-COV-2 COVID-19 2020-08-29 Completed Unive rsity of MODERNA VACCINE 00:00:00 [place] [facility] ical Branch SARS-COV-2 COVID-19 2020-08-29 Completed Unive rsity of MODERNA VACCINE 00:00:00 [facility] ical Branch SARS-COV-2 COVID-19 2020-08-29 Completed Unive rsity of MODERNA VACCINE 00:00:00 [facility] ical Branch SARS-COV-2 COVID-19 2020-08-29 Completed Unive rsity of MODERNA VACCINE 00:00:00 [facility] ical Branch SARS-COV-2 COVID-19 2020-08-29 Completed Unive rsity of MODERNA 12+ YRS 00:00:00 [place] [facility] ical VACCINE Branch SARS-COV-2 COVID-19 2020-08-29 Completed Unive rsity of MODERNA 12+ YRS 00:00:00 [place] [facility] ical VACCINE Branch SARS-COV-2 COVID-19 2020-08-29 Completed Unive rsity of MODERNA 12+ YRS 00:00:00 [facility] ical VACCINE Branch SARS-COV-2 COVID-19 2020-08-29 Completed Unive rsity of MODERNA VACCINE 00:00:00 [facility] ical Branch SARS-COV-2 COVID-19 2020-08-29 Completed Unive rsity of MODERNA VACCINE 00:00:00 [facility] Vital Signs Vital Name Observation Time Observation Value Comments Source Systolic blood 2022-03-22 17:15:00 107 mm[Hg] Univer sity of pressure [facility] Diastolic blood 2022-03-22 17:15:00 59 mm[Hg] Unive rsity of pressure [facility] Heart rate 2022-03-22 17:15:00 83 /min [facility] Body temperature 2022-03-22 17:15:00 36.06 Sary Univ ersity of [facility] Respiratory rate 2022-03-22 17:15:00 14 /min [facility] [place] [facility] Body weight 2022-03-22 17:15:00 71.85 kg [facility] [place] [facility] BMI 2022-03-22 17:15:00 23.39 kg/m2 [facility] [place] [facility] Oxygen saturation in 2022-03-22 17:15:00 100 /min [facility] Arterial blood by [place] [employer] [facility] Pulse oximetry Branch Systolic blood 2022-03-08 17:39:00 102 mm[Hg] Univer sity of pressure [place] [facility] Diastolic blood 2022-03-08 17:39:00 60 mm[Hg] Unive rsity of pressure [place] [facility] Heart rate 2022-03-08 17:39:00 74 /min [facility] [place] [facility] Body temperature 2022-03-08 17:39:00 36.78 Sary [facility] [place] [facility] Body weight 2022-03-08 17:39:00 69.4 kg [facility] [place] [facility] BMI 2022-03-08 17:39:00 22.59 kg/m2 [facility] [place] [facility] Oxygen saturation in 2022-03-08 17:39:00 98 /min [facility] Arterial blood by [place] [employer] [facility] Pulse oximetry Branch Systolic blood 2022-03-02 17:33:00 101 mm[Hg] Univer sity of pressure [place] [facility] Diastolic blood 2022-03-02 17:33:00 68 mm[Hg] Unive rsity of pressure [place] [facility] Heart rate 2022-03-02 17:33:00 78 /min [facility] [place] [facility] Body temperature 2022-03-02 17:33:00 37.06 Sary [facility] [place] [facility] Respiratory rate 2022-03-02 17:33:00 14 /min [facility] [place] [facility] Body weight 2022-03-02 17:33:00 72.576 kg [facility] [place] [facility] BMI 2022-03-02 17:33:00 23.63 kg/m2 [facility] [place] [facility] Oxygen saturation in 2022-03-02 17:33:00 98 /min [facility] Arterial blood by [place] [employer] Pulse oximetry Branch Systolic blood 2022-02-27 17:37:00 107 mm[Hg] Univer [facility]ity of pressure [place] [facility] Diastolic blood 2022-02-27 17:37:00 69 mm[Hg] Unive rsity of pressure [place] [facility] Heart rate 2022-02-27 17:37:00 86 /min [facility] [place] [facility] Respiratory rate 2022-02-27 17:37:00 14 /min [facility] [place] [facility] Body weight 2022-02-27 17:37:00 72.576 kg [facility] [place] [facility] BMI 2022-02-27 17:37:00 23.63 kg/m2 [facility] [place] [facility] Oxygen saturation in 2022-02-27 17:37:00 97 /min [facility] Arterial blood by [place] [facility] P[facility] oxim[facility] Heart rate 2022-02-24 16:45:00 75 /min [facility] [place] [facility] Oxygen saturation in 2022-02-24 16:45:00 100 /min [facility] of Arterial blood by [facility] Pulse oximetry Branch Systolic blood 2022-02-24 16:30:00 141 mm[Hg] Univer sity of pressure [place] [facility] Diastolic blood 2022-02-24 16:30:00 79 mm[Hg] Unive rsity of pressure [place] [facility] Body temperature 2022-02-24 16:10:00 36.28 Sary [facility] [place] [facility] Respiratory rate 2022-02-24 16:10:00 10 /min [facility] [place] [facility] Body height 2022-02-24 12:44:00 175.3 cm [facility] [place] [facility] Body weight 2022-02-24 12:44:00 72.576 kg [facility] [place] [facility] BMI 2022-02-24 12:44:00 23.63 kg/m2 [facility] [place] [facility] Heart rate 2022-02-24 16:45:00 75 /min [facility] [place] [facility] Oxygen saturation in 2022-02-24 16:45:00 100 /min [facility] of Arterial blood by [facility] Pulse oximetry Branch Systolic blood 2022-02-24 16:30:00 141 mm[Hg] Univer sity of pressure [place] [facility] Diastolic blood 2022-02-24 16:30:00 79 mm[Hg] Unive rsity of pressure [place] [facility] Body temperature 2022-02-24 16:10:00 36.28 Sary Univ ersity of [facility] Respiratory rate 2022-02-24 16:10:00 10 /min Univ ersity of [facility] Body height 2022-02-24 12:44:00 175.3 cm Universi ty of [facility] Body weight 2022-02-24 12:44:00 72.576 kg Universi ty of [facility] BMI 2022-02-24 12:44:00 23.63 kg/m2 Universi ty of [facility] Systolic blood 2022-02-20 18:16:00 122 mm[Hg] Univer sity of pressure [facility] Diastolic blood 2022-02-20 18:16:00 71 mm[Hg] Unive rsity of pressure [facility] Heart rate 2022-02-20 18:16:00 84 /min [facility] of [facility] [facility] Body temperature 2022-02-20 18:16:00 36.83 Sary [facility] Respiratory rate 2022-02-20 18:16:00 11 /min [facility] Body weight 2022-02-20 18:16:00 72.576 kg [facility] [place] BMI 2022-02-20 18:16:00 23.63 kg/m2 [facility] Oxygen saturation in 2022-02-20 18:16:00 100 /min [facility] Arterial blood by [facility] Pulse oximetry Branch Systolic blood 2022-02-09 17:37:00 131 mm[Hg] [facility]ity of pressure [facility] Diastolic blood 2022-02-09 17:37:00 72 mm[Hg] [facility] Heart rate 2022-02-09 17:37:00 62 /min [facility] Body temperature 2022-02-09 17:37:00 35.72 Sary [facility] Respiratory rate 2022-02-09 17:37:00 16 /min [facility] Body weight 2022-02-09 17:37:00 73.029 kg [facility] BMI 2022-02-09 17:37:00 23.78 kg/m2 [facility] Systolic blood 2022-02-03 17:36:00 99 mm[Hg] [facility] Diastolic blood 2022-02-03 17:36:00 54 mm[Hg] [facility] Heart rate 2022-02-03 17:36:00 82 /min [facility] Body temperature 2022-02-03 17:36:00 36.72 Sary [facility] Respiratory rate 2022-02-03 17:36:00 16 /min [facility] Oxygen saturation in 2022-02-03 17:36:00 99 /min [facility] Arterial blood by [facility] alexis Pulse oximetry [facility] Systolic blood 2022-01-30 17:24:00 130 mm[Hg] [facility] pressure [facility] Diastolic blood 2022-01-30 17:24:00 76 mm[Hg] [facility] Heart rate 2022-01-30 17:24:00 80 /min [facility] Body temperature 2022-01-30 17:24:00 37.17 Sary [facility] Respiratory rate 2022-01-30 17:24:00 14 /min [facility] Body weight 2022-01-30 17:24:00 70.035 kg [facility] BMI 2022-01-30 17:24:00 22.80 kg/m2 [facility] Oxygen saturation in 2022-01-30 17:24:00 99 /min [facility] Arterial blood by [facility] Pulse oximetry [facility] Systolic blood 2022-01-26 17:25:00 107 mm[Hg] [facility] pressure [facility] Diastolic blood 2022-01-26 17:25:00 62 mm[Hg] [facility] Heart rate 2022-01-26 17:25:00 84 /min [facility] Body temperature 2022-01-26 17:25:00 36.94 Sary [facility] Respiratory rate 2022-01-26 17:25:00 14 /min [facility] Body weight 2022-01-26 17:25:00 71.668 kg [facility] BMI 2022-01-26 17:25:00 23.33 kg/m2 [facility] Oxygen saturation in 2022-01-26 17:25:00 99 /min [facility] Systolic blood 2022-01-17 17:21:00 124 mm[Hg] [facility] pressure [facility] Diastolic blood 2022-01-17 17:21:00 69 mm[Hg] [facility] pressure [facility] Heart rate 2022-01-17 17:21:00 75 /min [facility] Body temperature 2022-01-17 17:21:00 37 Sary [facility] Respiratory rate 2022-01-17 17:21:00 14 /min [facility] Body weight 2022-01-17 17:21:00 71.668 kg [facility] BMI 2022-01-17 17:21:00 23.33 kg/m2 [facility] Oxygen saturation in 2022-01-17 17:21:00 99 /min [facility] Arterial blood by [facility] Pulse o[facility] Systolic blood 2022-01-12 15:30:00 132 mm[Hg] [facility] Diastolic blood 2022-01-12 15:30:00 65 mm[Hg] [facility] pressure [facility] Oxygen saturation in 2022-01-12 15:30:00 97 /min [facility] Arterial blood by [facility] Pulse oximetry [facility] Heart rate 2022-01-12 15:15:00 88 /min [facility] Respiratory rate 2022-01-12 15:15:00 18 /min [facility] Body temperature 2022-01-12 14:46:00 37 Sary [facility] Body height 2022-01-12 11:34:00 175.3 cm [facility] Body weight 2022-01-12 11:34:00 66 kg [facility] BMI 2022-01-12 11:34:00 21.49 kg/m2 [facility] Systolic blood 2022-01-12 11:34:00 139 mm[Hg] [facility] Diastolic blood 2022-01-12 11:34:00 81 mm[Hg] [facility] pressure [facility] Heart rate 2022-01-12 11:34:00 84 /min [facility] Body temperature 2022-01-12 11:34:00 36.44 Sary [facility] Respiratory rate 2022-01-12 11:34:00 18 /min [facility] Body height 2022-01-12 11:34:00 175.3 cm [facility] Body weight 2022-01-12 11:34:00 66 kg [facility] BMI 2022-01-12 11:34:00 21.49 kg/m2 [facility] Oxygen saturation in 2022-01-12 11:34:00 100 /min [facility] Arterial blood by [facility] alexis Pulse o[facility] Systolic blood 2021-12-26 18:12:00 109 mm[Hg] [facility] pressure [facility] Diastolic blood 2021-12-26 18:12:00 57 mm[Hg] [facility] pressure [facility] Heart rate 2021-12-26 18:12:00 86 /min [facility] Body temperature 2021-12-26 18:12:00 36.89 Sary [facility] Respiratory rate 2021-12-26 18:12:00 14 /min [facility] Body weight 2021-12-26 18:12:00 72.576 kg [facility] BMI 2021-12-26 18:12:00 23.62 kg/m2 [facility] Oxygen saturation in 2021-12-26 18:12:00 99 /min [facility] Arterial blood by [facility] alexis P[facility] o[facility] Systolic blood 2021-11-07 17:50:00 131 mm[Hg] [facility] pressure [facility] Diastolic blood 2021-11-07 17:50:00 70 mm[Hg] [facility] pressure [facility] Heart rate 2021-11-07 17:50:00 85 /min [facility] Body temperature 2021-11-07 17:50:00 36.61 Sary [facility] Respiratory rate 2021-11-07 17:50:00 18 /min [facility] Oxygen saturation in 2021-11-07 17:50:00 100 /min [facility] [place] [facility] Systolic blood 2021-08-19 18:47:00 112 mm[Hg] [facility] Diastolic blood 2021-08-19 18:47:00 68 mm[Hg] [facility] Heart rate 2021-08-19 18:47:00 83 /min [facility] Body temperature 2021-08-19 18:47:00 37.67 Sary [facility] Respiratory rate 2021-08-19 18:47:00 14 /min [facility] Body weight 2021-08-19 18:47:00 70.308 kg [facility] BMI 2021-08-19 18:47:00 22.88 kg/m2 [facility] Oxygen saturation in 2021-08-19 18:47:00 98 /min [facility] Arterial blood by [facility]lex[facility] P[facility] o[facility] Systolic blood 2021-06-14 18:16:00 114 mm[Hg] [facility] pressure [facility] Diastolic blood 2021-06-14 18:16:00 63 mm[Hg] [facility] pressure [facility] Heart rate 2021-06-14 18:16:00 85 /min [facility] Body temperature 2021-06-14 18:16:00 37.22 Sary [facility] Respiratory rate 2021-06-14 18:16:00 16 /min [facility] Body weight 2021-06-14 18:16:00 67.677 kg [facility] BMI 2021-06-14 18:16:00 22.02 kg/m2 [facility] Oxygen saturation in 2021-06-14 18:16:00 99 /min [facility] [place] [facility] Systolic blood 2021-05-06 17:33:00 110 mm[Hg] [facility] pressure [facility] Diastolic blood 2021-05-06 17:33:00 73 mm[Hg] [facility] pressure [facility] Heart rate 2021-05-06 17:33:00 83 /min [facility] Body temperature 2021-05-06 17:33:00 36.89 Sary [facility] Respiratory rate 2021-05-06 17:33:00 16 /min [facility] Body weight 2021-05-06 17:33:00 66.996 kg [facility] BMI 2021-05-06 17:33:00 21.80 kg/m2 [facility] Oxygen saturation in 2021-05-06 17:33:00 99 /min [facility] Systolic blood 2021-04-29 17:50:00 91 mm[Hg] [facility] Diastolic blood 2021-04-29 17:50:00 55 mm[Hg] [facility] Heart rate 2021-04-29 17:50:00 85 /min [facility] Body temperature 2021-04-29 17:50:00 37.06 Sary [facility] Respiratory rate 2021-04-29 17:50:00 15 /min [facility] Body weight 2021-04-29 17:50:00 67.314 kg [facility] BMI 2021-04-29 17:50:00 21.90 kg/m2 [facility] Oxygen saturation in 2021-04-29 17:50:00 98 /min [facility] Arterial blood by [facility] alexis Pulse oximetry [facility] Systolic blood 2021-04-13 17:39:00 127 mm[Hg] [facility] of pressure [facility] Diastolic blood 2021-04-13 17:39:00 76 mm[Hg] [facility] pressure [facility] Heart rate 2021-04-13 17:39:00 78 /min [facility] Body temperature 2021-04-13 17:39:00 37.06 Sary [facility] Respiratory rate 2021-04-13 17:39:00 14 /min [facility] Body weight 2021-04-13 17:39:00 67.586 kg [facility] BMI 2021-04-13 17:39:00 21.99 kg/m2 [facility] Oxygen saturation in 2021-04-13 17:39:00 99 /min [facility] Systolic blood 2021-04-06 17:31:00 111 mm[Hg] [facility]iver [facility] of pressure [facility] Diastolic blood 2021-04-06 17:31:00 64 mm[Hg] [facility] pressure [facility] Heart rate 2021-04-06 17:31:00 84 /min [facility] Body temperature 2021-04-06 17:31:00 36.94 Sary [facility] Respiratory rate 2021-04-06 17:31:00 18 /min [facility] Body weight 2021-04-06 17:31:00 67.631 kg [facility] BMI 2021-04-06 17:31:00 22.01 kg/m2 [facility] Oxygen saturation in 2021-04-06 17:31:00 99 /min [facility] Arterial blood by [facility] Pulse oximetry [facility] Systolic blood 2021-02-28 17:17:00 118 mm[Hg] [facility]iver [facility]ity of pressure [facility] Diastolic blood 2021-02-28 17:17:00 71 mm[Hg] [facility]ive rs[facility] of pressure [facility] Heart rate 2021-02-28 17:17:00 75 /min [facility] Body temperature 2021-02-28 17:17:00 37.06 Sary [facility] Respiratory rate 2021-02-28 17:17:00 14 /min [facility] Body weight 2021-02-28 17:17:00 67.132 kg [facility] BMI 2021-02-28 17:17:00 21.85 kg/m2 [facility] Oxygen saturation in 2021-02-28 17:17:00 98 /min [facility] Arterial blood by [facility] alexis Pulse o[facility] Systolic blood 2021-02-28 17:17:00 118 mm[Hg] [facility] of pressure [facility] Diastolic blood 2021-02-28 17:17:00 71 mm[Hg] [facility] pressure [facility] Heart rate 2021-02-28 17:17:00 75 /min [facility] Body temperature 2021-02-28 17:17:00 37.06 Sary [facility] Respiratory rate 2021-02-28 17:17:00 14 /min [facility] Body weight 2021-02-28 17:17:00 67.132 kg [facility] BMI 2021-02-28 17:17:00 21.85 kg/m2 [facility] Oxygen saturation in 2021-02-28 17:17:00 98 /min [facility] Arterial blood by [facility] Pulse oxim[facility] Systolic blood 2021-02-21 17:38:00 121 mm[Hg] [facility] of pressure [facility] Diastolic blood 2021-02-21 17:38:00 70 mm[Hg] [facility] Heart rate 2021-02-21 17:38:00 75 /min [facility] Body temperature 2021-02-21 17:38:00 36.56 Sary [facility] Respiratory rate 2021-02-21 17:38:00 14 /min [facility] Body weight 2021-02-21 17:38:00 67 kg [facility] BMI 2021-02-21 17:38:00 21.80 kg/m2 [facility] Oxygen saturation in 2021-02-21 17:38:00 97 /min [facility] Ar[facility]ial blood by [facility] Pulse oxim[facility] Systolic blood 2021-02-21 17:38:00 121 mm[Hg] [facility] of pressure [facility] Diastolic blood 2021-02-21 17:38:00 70 mm[Hg] [facility] pressure [facility] Heart rate 2021-02-21 17:38:00 75 /min [facility] Body temperature 2021-02-21 17:38:00 36.56 Sary [facility] Respiratory rate 2021-02-21 17:38:00 14 /min [facility] Body weight 2021-02-21 17:38:00 67 kg [facility] BMI 2021-02-21 17:38:00 21.80 kg/m2 [facility] Oxygen saturation in 2021-02-21 17:38:00 97 /min [facility] Systolic blood 2021-02-14 17:37:00 134 mm[Hg] [facility] pressure [facility] Diastolic blood 2021-02-14 17:37:00 69 mm[Hg] [facility] pressure [facility] Heart rate 2021-02-14 17:37:00 80 /min [facility] Body temperature 2021-02-14 17:37:00 36.44 Sary [facility] Respiratory rate 2021-02-14 17:37:00 18 /min [facility] Body weight 2021-02-14 17:37:00 67.132 kg [facility] BMI 2021-02-14 17:37:00 21.85 kg/m2 [facility] Oxygen saturation in 2021-02-14 17:37:00 99 /min [facility] Arterial blood by [facility] Pulse oxim[facility] Systolic blood 2021-02-09 17:45:00 105 mm[Hg] [facility] of pressure [facility] Diastolic blood 2021-02-09 17:45:00 61 mm[Hg] [facility] pressure [facility] Heart rate 2021-02-09 17:45:00 72 /min [facility] Body temperature 2021-02-09 17:45:00 35.83 Sary [facility] Respiratory rate 2021-02-09 17:45:00 20 /min [facility] Body weight 2021-02-09 17:45:00 67.359 kg [facility] BMI 2021-02-09 17:45:00 21.92 kg/m2 [facility] Oxygen saturation in 2021-02-09 17:45:00 97 /min [facility] Arterial blood by [facility] P[facility] o[facility] Systolic blood 2021-01-26 18:05:00 93 mm[Hg] [facility] of pressure [facility] Diastolic blood 2021-01-26 18:05:00 58 mm[Hg] [facility] rs[facility] of pressure [facility] Heart rate 2021-01-26 18:05:00 79 /min [facility] Body temperature 2021-01-26 18:05:00 36.67 Sary [facility] Respiratory rate 2021-01-26 18:05:00 14 /min [facility] Body weight 2021-01-26 18:05:00 66.679 kg [facility] BMI 2021-01-26 18:05:00 21.70 kg/m2 [facility] Oxygen saturation in 2021-01-26 18:05:00 99 /min [facility] blood by [place] [employer] [facility] Systolic blood 2021-01-12 17:58:00 113 mm[Hg] [facility] pressure [facility] Diastolic blood 2021-01-12 17:58:00 66 mm[Hg] [facility]ive rsity of pressure [facility] Heart rate 2021-01-12 17:58:00 80 /min [facility] Body temperature 2021-01-12 17:58:00 36.78 Sary [facility] Respiratory rate 2021-01-12 17:58:00 14 /min [facility] Body weight 2021-01-12 17:58:00 66.679 kg [facility] BMI 2021-01-12 17:58:00 21.70 kg/m2 [facility] Oxygen saturation in 2021-01-12 17:58:00 98 /min [facility] Arterial blood by [facility] Pulse o[facility] Systolic blood 2021-01-04 18:24:00 103 mm[Hg] [facility]iver [facility]ity of pressure [facility] Diastolic blood 2021-01-04 18:24:00 62 mm[Hg] [facility] Heart rate 2021-01-04 18:24:00 82 /min [facility] Body temperature 2021-01-04 18:24:00 37 Sary [facility] Respiratory rate 2021-01-04 18:24:00 20 /min [facility] Body weight 2021-01-04 18:24:00 67.087 kg [facility] BMI 2021-01-04 18:24:00 21.83 kg/m2 [facility] Oxygen saturation in 2021-01-04 18:24:00 98 /min [facility] Arterial blood by [facility] P[facility] Body weight 2020-12-23 18:15:00 66.225 kg [facility] BMI 2020-12-23 18:15:00 21.55 kg/m2 [facility] Systolic blood 2020-12-23 17:45:00 100 mm[Hg] [facility] of pressure [facility] Diastolic blood 2020-12-23 17:45:00 58 mm[Hg] [facility] pressure [facility] Heart rate 2020-12-23 17:45:00 74 /min [facility] Body temperature 2020-12-23 17:45:00 37.06 Sary [facility] Respiratory rate 2020-12-23 17:45:00 24 /min [facility] Oxygen saturation in 2020-12-23 17:45:00 99 /min [facility] Arterial blood by [facility] Pulse o[facility] Systolic blood 2020-12-09 17:51:00 85 mm[Hg] Univer [facility]ity of pressure [facility] Diastolic blood 2020-12-09 17:51:00 56 mm[Hg] [facility] pressure [facility] Heart rate 2020-12-09 17:51:00 80 /min [facility] Body temperature 2020-12-09 17:51:00 36.67 Sary [facility] Respiratory rate 2020-12-09 17:51:00 14 /min [facility] Body weight 2020-12-09 17:51:00 63.866 kg [facility] BMI 2020-12-09 17:51:00 20.78 kg/m2 [facility] Oxygen saturation in 2020-12-09 17:51:00 99 /min [facility] Arterial blood by [facility] P[facility] Systolic blood 2020-12-03 12:49:00 95 mm[Hg] [facility]ity of pressure [facility] Diastolic blood 2020-12-03 12:49:00 63 mm[Hg] [facility] rsity of pressure [facility] Heart rate 2020-12-03 12:49:00 70 /min [facility] Body temperature 2020-12-03 12:49:00 36.72 Sary [facility] Respiratory rate 2020-12-03 12:49:00 17 /min [facility] Oxygen saturation in 2020-12-03 12:49:00 96 /min [facility] Arterial blood by [facility] Body weight 2020-11-29 18:00:00 66.5 kg tub wt [facility] BMI 2020-11-29 18:00:00 21.64 kg/m2 [facility] Body height 2020-11-29 13:00:00 175.3 cm [facility] Systolic blood 2020-11-25 22:00:00 103 mm[Hg] [facility] Diastolic blood 2020-11-25 22:00:00 66 mm[Hg] [facility] pressure [facility] Heart rate 2020-11-25 22:00:00 78 /min [facility] Respiratory rate 2020-11-25 22:00:00 23 /min [facility] Oxygen saturation in 2020-11-25 22:00:00 100 /min [facility] Arterial blood by [facility] P[facility] Body temperature 2020-11-25 21:55:00 36 Sary [facility] ersity of [facility] Body height 2020-11-23 01:00:00 175.3 cm [facility] Body weight 2020-11-23 01:00:00 66.7 kg [facility] BMI 2020-11-23 01:00:00 21.70 kg/m2 [facility] Systolic blood 2020-11-17 12:34:00 141 mm[Hg] [facility] pressure [facility] Diastolic blood 2020-11-17 12:34:00 82 mm[Hg] [facility] pressure [facility] Heart rate 2020-11-17 12:34:00 79 /min [facility] Body temperature 2020-11-17 12:34:00 36.89 Sary [facility] Respiratory rate 2020-11-17 12:34:00 15 /min [facility] Oxygen saturation in 2020-11-17 12:34:00 97 /min [facility] Ar[facility]ial blood by [facility] Body height 2020-11-13 01:00:00 175.3 cm [facility] Body weight 2020-11-13 01:00:00 66.7 kg [facility] BMI 2020-11-13 01:00:00 21.70 kg/m2 [facility] Systolic blood 2020-11-11 16:41:00 89 mm[Hg] [facility] of pressure [facility] Diastolic blood 2020-11-11 16:41:00 60 mm[Hg] [facility]ive rsity of pressure [facility] Heart rate 2020-11-11 16:41:00 77 /min [facility] Body temperature 2020-11-11 16:41:00 36.78 Sary [facility] Respiratory rate 2020-11-11 16:41:00 16 /min [facility] Oxygen saturation in 2020-11-11 16:41:00 97 /min [facility] Arterial blood by [facility] P[facility] Body height 2020-11-05 20:21:00 175.3 cm [facility] Body weight 2020-11-05 20:21:00 66.7 kg [facility] BMI 2020-11-05 20:21:00 21.72 kg/m2 [facility] Systolic blood 2020-11-08 13:30:00 141 mm[Hg] [facility] pressure [facility] Diastolic blood 2020-11-08 13:30:00 76 mm[Hg] [facility] rsity of pressure [facility] Heart rate 2020-11-08 13:30:00 84 /min [facility] Respiratory rate 2020-11-08 13:30:00 19 /min [facility] Oxygen saturation in 2020-11-08 13:30:00 98 /min [facility] Body temperature 2020-11-08 13:11:00 37 Sary [facility] Body height 2020-11-05 20:21:00 175.3 cm [facility] ty [facility] [facility] Body weight 2020-11-05 20:21:00 66.7 kg [facility] BMI 2020-11-05 20:21:00 21.72 kg/m2 [facility] Systolic blood 2020-08-20 21:43:00 123 mm[Hg] Univer sity of pressure [facility] Diastolic blood 2020-08-20 21:43:00 79 mm[Hg] Unive rsity of pressure [facility] Heart rate 2020-08-20 21:43:00 86 /min [facility] Body temperature 2020-08-20 21:43:00 36.83 Sary [facility] Respiratory rate 2020-08-20 21:43:00 16 /min [facility] Oxygen saturation in 2020-08-20 21:43:00 99 /min [facility] Arterial blood by [place] [employer] [facility] oxim[facility] Systolic blood 2020-08-11 19:18:00 120 mm[Hg] Univer sity of pressure [facility] Diastolic blood 2020-08-11 19:18:00 65 mm[Hg] Unive rsity of pressure [facility] Heart rate 2020-08-11 19:18:00 88 /min [facility] Body temperature 2020-08-11 19:18:00 36.83 Sary [facility] Respiratory rate 2020-08-11 19:18:00 14 /min [facility] Body weight 2020-08-11 19:18:00 68.947 kg [facility] BMI 2020-08-11 19:18:00 22.45 kg/m2 [facility] Oxygen saturation in 2020-08-11 19:18:00 98 /min [facility] blood by [place] [facility] P[facility]xim[facility] Systolic blood 2020-07-28 18:41:00 125 mm[Hg] [facility] Diastolic blood 2020-07-28 18:41:00 74 mm[Hg] Unive rsity of pressure [facility] Heart rate 2020-07-28 18:41:00 84 /min [facility] Body temperature 2020-07-28 18:41:00 36.83 Sary [facility] Respiratory rate 2020-07-28 18:41:00 14 /min [facility] Body weight 2020-07-28 18:41:00 70.308 kg [facility] BMI 2020-07-28 18:41:00 22.89 kg/m2 [facility] Oxygen saturation in 2020-07-28 18:41:00 99 /min [facility] blood by [place] [employer] [facility] Systolic blood 2020-07-14 19:06:00 138 mm[Hg] [facility] Diastolic blood 2020-07-14 19:06:00 87 mm[Hg] Unive rsity [facility] pressure [facility] Heart rate 2020-07-14 19:06:00 89 /min [facility] Body temperature 2020-07-14 19:06:00 34.72 Sary [facility] Respiratory rate 2020-07-14 19:06:00 14 /min [facility] Body weight 2020-07-14 19:06:00 67.132 kg [facility] BMI 2020-07-14 19:06:00 21.86 kg/m2 [facility] Oxygen saturation in 2020-07-14 19:06:00 97 /min [facility] Arterial blood by [facility] alexis Pulse oximetry Branch Systolic blood 2020-07-07 19:17:00 93 mm[Hg] [facility]iver [facility]ity of pressure [facility] Diastolic blood 2020-07-07 19:17:00 65 mm[Hg] Unive rsity of pressure [facility] Heart rate 2020-07-07 19:17:00 86 /min [facility] Body temperature 2020-07-07 19:17:00 36.78 Sary [facility] Respiratory rate 2020-07-07 19:17:00 20 /min [facility] Body weight 2020-07-07 19:17:00 66.361 kg [facility] BMI 2020-07-07 19:17:00 21.60 kg/m2 [facility] Oxygen saturation in 2020-07-07 19:17:00 98 /min [facility] Arterial blood by [facility] Pulse oximetry Branch Systolic blood 2020-06-30 17:32:00 146 mm[Hg] Univer sity of pressure [facility] Diastolic blood 2020-06-30 17:32:00 78 mm[Hg] Unive rsity of [facility] Heart rate 2020-06-30 17:32:00 91 /min [facility] Body temperature 2020-06-30 17:32:00 37.5 Sary [facility] Res[facility] rate 2020-06-30 17:32:00 16 /min [facility] Oxygen saturation in 2020-06-30 17:32:00 98 /min [facility] Arterial blood by [facility] Pulse oximetry Branch Body height 2020-06-28 19:52:00 175[facility]3 cm [facility] Body weight 2020-06-28 19:52:00 68.9 kg [facility] BMI 2020-06-28 19:52:00 22.43 kg/m2 [facility] Systolic blood 2022-04-18 12:49:40 134 mm[Hg] Method [facility] pressure Diastolic blood 2022-04-18 12:49:40 74 mm[Hg] [facility] pressure Heart rate 2022-04-18 12:49:40 65 /min [facility] Body temperature 2022-04-18 12:49:40 36.83 Sary [facility] Respiratory rate 2022-04-18 12:49:40 20 /min [facility] Oxygen saturation in 2022-04-18 12:49:40 100 /min [facility] Arterial blood by Pulse oximetry Body height 2022-04-13 18:56:00 175.3 cm [facility] Body weight 2022-04-13 18:56:00 72.031 kg [facility] BMI 2022-04-13 18:56:00 23.45 kg/m2 [facility] Procedures Procedure Date / Time Performing Clinician Source Performed POC GLUCOSE 2022-04-18 17:04:00 Ashtyn Pedersen [facility] POC GLUCOSE 2022-04-18 12:49:00 Joglekar, Cris [facility] HC COMPLETE BLD COUNT 2022-04-18 10:00:00 JerriClifford herndon [facility] W/AUTO DIFF BASIC METABOLIC PANEL 2022-04-18 [facility] 2022-04-18 10:00:00 Keely Clifford [facility] POC GLUCOSE 2022-04-18 01:58:00 Joglekar, Cris [facility] POC GLUCOSE 2022-04-17 22:34:00 Joglekar, Cris [facility] POC GLUCOSE 2022-04-17 16:58:00 Joglekar, Cris [facility] POC GLUCOSE 2022-04-17 13:55:00 Joglekar, Cris [facility] POC GLUCOSE 2022-04-17 13:09:00 Joglekar, Cris [facility] POC GLUCOSE 2022-04-17 02:07:00 Joglekar, Cris [facility] POC GLUCOSE 2022-04-16 22:42:00 Joglekar, Cris [facility] POC GLUCOSE 2022-04-16 17:34:00 Joglekar, Cris [facility] POC GLUCOSE 2022-04-16 13:28:00 Joglekar, Cris [facility] BASIC METABOLIC PANEL 2022-04-16 09:31:00 Renate Young [facility] HC COMPLETE BLD COUNT 2022-04-16 09:31:00 Renate Young [facility] W/AUTO DIFF ESTIMATED GFR 2022-04-16 09:31:00 Renate Young Ho spital POC GLUCOSE 2022-04-16 01:31:00 Joglekar, Cris [facility] POC GLUCOSE 2022-04-15 22:30:00 Joglekar, Cris [facility] POC GLUCOSE 2022-04-15 17:07:00 Joglekar, Cris [facility] POC GLUCOSE 2022-04-15 12:52:00 JoglekNela joyati [facility] BASIC METABOLIC PANEL 2022-04-15 10:29:00 Hector Renate Lopezjak [facility] HC COMPLETE BLD COUNT 2022-04-15 10:29:00 Hector Renate Yen [facility] W/AUTO DIFF ESTIMATED GFR 2022-04-15 10:29:00 Renate Young Ho spital POC GLUCOSE 2022-04-15 02:46:00 JoglekNela joyati [facility] POC GLUCOSE 2022-04-14 22:26:00 JoglekNela joyati [facility] BASIC METABOLIC PANEL 2022-04-14 17:56:00 Hector Renate Yen [facility] HC COMPLETE BLD COUNT 2022-04-14 17:56:00 Hector Renate Johnjak [facility] W/AUTO DIFF ESTIMATED GFR 2022-04-14 17:56:00 Renate Young Ho [facility]ital POC GLUCOSE 2022-04-14 17:30:00 JoglNela lebronati [facility] POC GLUCOSE 2022-04-14 14:04:00 JoglekarNelaCris [facility] POC GLUCOSE 2022-04-14 12:42:00 JoglekNela joyati [facility] POC GLUCOSE 2022-04-14 10:34:00 JoglekNela joyati [facility] POC GLUCOSE 2022-04-14 07:01:00 JoNela gonzalezati [facility] POC GLUCOSE 2022-04-14 05:09:00 JoglekNela joyati [facility] POC GLUCOSE 2022-04-14 03:11:00 JoglekarNelaCris [facility] FUNGUS CULTURE 2022-04-13 22:57:00 Holger Gray Ho spital AFB CULTURE 2022-04-13 22:57:00 Holger Gray Ho [facility]ital FUNGUS CULTURE 2022-04-13 22:35:00 Holger Gray [facility] [employer] CULTURE 2022-04-13 22:35:00 Holger Gray [facility] POC GLUCOSE 2022-04-13 22:32:00 Cris Ramirez spital ANAEROBIC CULTURE 2022-04-13 21:57:00 [facility] AEROBIC CULTURE 2022-04-13 21:57:00 [facility] Angel Angeles spital FUNGUS SMEAR 2022-04-13 21:57:00 JohnstonMercedesHolgertere Angeles spital [employer] STAIN 2022-04-13 21:57:00 [facility] Angel PearceSamaritan Ho spital ANAEROBIC CULTURE 2022-04-13 21:35:00 [facility] AEROBIC CULTURE 2022-04-13 21:35:00 JohnstonMercedesHolgertere Angeles spital ND AN ELECTIVE 2022-04-13 21:04:00 Malick Terry [facility] SUPRAGLOTTIC AIRWAY REVISION, BKA 2022-04-13 20:58:00 Holger Gray spital APPLICATION OR 2022-04-13 20:58:00 JohnstonMercedesHolgertere Angeles spital REPLACEMENT, WOUND VAC DEBRIDEMENT, LOWER 2022-04-13 20:58:00 [facility] EXTREMITY ABO AND RH CONFIRMATION 2022-04-13 18:45:00 Cris Ramirez [facility] BY PROTOCOL POC GLUCOSE 2022-04-13 18:25:00 Cris Ramirez spital POC GLUCOSE 2022-04-13 16:57:00 Cris Ramirez spital TYPE AND SCREEN 2022-04-13 15:35:00 JohnstonHolger spital POC GLUCOSE 2022-04-13 12:47:00 Maikel Hays spital HC COMPLETE BLD COUNT 2022-04-13 10:08:00 Maikel Hays [facility] W/AUTO DIFF BASIC METABOLIC PANEL 2022-04-13 10:08:00 Maikel Hays [facility] ESTIMATED GFR 2022-04-13 10:08:00 Maikel Hays spital POC GLUCOSE 2022-04-13 02:22:00 Saúl, Maikel [facility] POC GLUCOSE 2022-04-12 21:05:00 Sylvia Haysil [facility] POC GLUCOSE 2022-04-12 16:53:00 Sylvia Haysil [facility] POC GLUCOSE 2022-04-12 13:01:00 Sylvia Haysil [facility] HC COMPLETE BLD COUNT 2022-04-12 10:34:00 [facility] BASIC METABOLIC PANEL 2022-04-12 10:34:00 [facility] ESTIMATED GFR 2022-04-12 10:34:00 Maikel Hays [facility] POC GLUCOSE 2022-04-12 01:38:00 Maikel Hays [facility] POC GLUCOSE 2022-04-11 22:06:00 Maikel Hays [facility] POC GLUCOSE 2022-04-11 16:34:00 Maikel Hays [facility] POC GLUCOSE 2022-04-11 12:57:00 Maikel Hays [facility] HC COMPLETE BLD COUNT 2022-04-11 10:28:00 [facility]ikel [facility] DIFF BASIC METABOLIC PANEL 2022-04-11 10:28:00 Maikel Hays [facility] ESTIMATED GFR 2022-04-11 10:28:00 Maikel Hays [facility] POC GLUCOSE 2022-04-11 01:45:00 Maikel Hays [facility] POC GLUCOSE 2022-04-10 22:09:00 Maikel Hays [facility] POC GLUCOSE 2022-04-10 17:18:00 Sylvia Haysil [facility] POC GLUCOSE 2022-04-10 13:27:00 Maikel Hays [facility] CBC WITH PLATELET AND 2022-04-10 10:11:00 Maikel Hays Method [facility] DIFFERENTIAL BASIC METABOLIC PANEL 2022-04-10 10:11:00 Maikel Hays [facility] ESTIMATED GFR 2022-04-10 10:11:00 Maikel Hays Ho spital MANUAL DIFFERENTIAL 2022-04-10 10:11:00 Maikel [facility]aysis t Hospital POC GLUCOSE 2022-04-10 02:51:00 Saúl Maikel [facility] POC GLUCOSE 2022-04-09 23:20:00 Saúl Maikel [facility] POC GLUCOSE 2022-04-09 17:15:00 Saúl Maikel [facility] POC GLUCOSE 2022-04-09 13:13:00 Saúl Maikel [facility] HC COMPLETE BLD COUNT 2022-04-09 08:38:00 Saúl Maikel Method [facility] W/AUTO DIFF BASIC METABOLIC PANEL 2022-04-09 08:38:00 Saúl Maikel Method [facility] ESTIMATED GFR 2022-04-09 08:38:00 Saúl Maikel [facility] POC GLUCOSE 2022-04-09 02:12:00 Saúl Maikel [facility] POC GLUCOSE 2022-04-08 21:34:00 Saúl Maikel [facility] POC GLUCOSE 2022-04-08 16:36:00 Saúl Maikel [facility] POC GLUCOSE 2022-04-08 13:11:00 Saúl Maikel [facility] HC COMPLETE BLD COUNT 2022-04-08 10:23:00 Maikel Hays Method [facility]AUTO DIFF BASIC METABOLIC PANEL 2022-04-08 10:23:00 Saúl Maikel Method [facility] ESTIMATED GFR 2022-04-08 10:23:00 Saúl Maikel [facility] POC GLUCOSE 2022-04-08 02:21:00 Saúl Maikel [facility] POC GLUCOSE 2022-04-07 23:11:00 Saúl Maikel [facility] POC GLUCOSE 2022-04-07 16:30:00 Saúl Maikel [facility] POC GLUCOSE 2022-04-07 13:12:00 Saúl Maikel [facility] HC COMPLETE BLD COUNT 2022-04-07 10:54:00 Saúl Maikel Method [facility]/AUTO DIFF BASIC METABOLIC PANEL 2022-04-07 10:54:00 Saúl Maikel Method [facility] ESTIMATED GFR 2022-04-07 10:54:00 Saúl Maikel [facility] POC GLUCOSE 2022-04-07 01:44:00 Maikel Hays [facility] POC GLUCOSE 2022-04-06 22:31:00 Sylvia Haysil [facility] POC GLUCOSE 2022-04-06 17:00:00 Sylvia Haysil [facility] POC GLUCOSE 2022-04-06 12:53:00 Maikel Hays [facility] HC COMPLETE BLD COUNT 2022-04-06 08:57:00 Maikel Hays [facility] W/AUTO DIFF BASIC METABOLIC PANEL 2022-04-06 08:57:00 Maikel Hays Method [facility] ESTIMATED GFR 2022-04-06 08:57:00 Maikel Hays Ho spital POC GLUCOSE 2022-04-06 02:39:00 Maikel Hays [facility] POC GLUCOSE 2022-04-05 21:28:00 Maikel Hays Ho spital XR PICC CHEST PORTABLE 2022-04-05 20:03:36 Maikel Hays [facility] PICC INSERTION REQUEST 2022-04-05 19:55:38 Divinagracia, [facility] POC GLUCOSE 2022-04-05 17:04:00 Maikel Hays Ho spital POC GLUCOSE 2022-04-05 12:58:00 Maikel Hays Ho spital HC COMPLETE BLD COUNT 2022-04-05 08:59:00 Maikel Hays [facility] W/AUTO DIFF BASIC METABOLIC PANEL 2022-04-05 08:59:00 Maikel Hays [facility] ESTIMATED GFR 2022-04-05 08:59:00 Maikel Hays [facility] POC GLUCOSE 2022-04-05 01:48:00 Maikel Hays [facility] POC GLUCOSE 2022-04-04 22:47:00 Maikel Hays [facility] POC GLUCOSE 2022-04-04 16:57:00 Maikel Hays Ho spital TTE COMPLETE, WO 2022-04-04 15:57:27 Tommy Will H ospital CONTRAST, WO DOPPLER POC GLUCOSE 2022-04-04 13:25:00 Maikel Hays Ho spital POC GLUCOSE 2022-04-04 01:37:00 Posani, Dimitrios [place] Ho spital POC GLUCOSE 2022-04-03 22:42:00 Posani, Dimitrios [place] [facility] ECG 12-LEAD 2022-04-03 17:49:56 Tommy Will Ho spital POC GLUCOSE 2022-04-03 16:24:00 Posani, Dimitrios [place] [facility] spital US DUPLEX ARTERIAL LOWER 2022-04-03 15:20:00 [facility] EXTREMITY BILATERAL Jono POC GLUCOSE 2022-04-03 12:53:00 Posani, Dimitrios [place] [facility] POC GLUCOSE 2022-04-03 03:41:00 Posani, Dimitrios [place] [facility] POC GLUCOSE 2022-04-03 02:07:00 Posani, Dimitrios [place] Ho spital POC GLUCOSE 2022-04-02 22:07:00 Posani, Dimitrios [place] Ho spital POC GLUCOSE 2022-04-02 16:43:00 Posani, Dimitrios [place] Ho spital POC GLUCOSE 2022-04-02 12:51:00 Posani, Dimitrios [place] Ho sp[facility] HC COMPLETE BLD COUNT 2022-04-02 09:28:00 Posani, [facility] W/AUTO DIFF BASIC METABOLIC PANEL 2022-04-02 09:28:00 Posani, [facility] ESTIMATED GFR 2022-04-02 09:28:00 Posani, Dimitrios [place] Ho spital POC GLUCOSE 2022-04-02 02:44:00 Posani, Dimitrios [place] Ho spital POC GLUCOSE 2022-04-01 22:43:00 Posani, Dimitrios [place] Ho spital POC GLUCOSE 2022-04-01 20:07:00 Posani, Dimitrios [place] Ho spital POC GLUCOSE 2022-04-01 17:42:00 Posani, Dimitrios [place] Ho spital POC GLUCOSE 2022-04-01 14:03:00 Posani, Dimitrios [place] Ho spital POC GLUCOSE 2022-04-01 02:02:00 Posani, Dimitrios [place] Ho spital POC GLUCOSE 2022-03-31 22:58:00 Dimitrios Ray NM BONE SCAN 3 PHASE 2022-03-31 20:02:00 Bernadette Rocha [facility] O[facility]am POC GLUCOSE 2022-03-31 17:09:00 Dimitrios Ray spital MRSA PCR 2022-03-31 15:48:00 Bernadette Rocha H ospital [place] POC GLUCOSE 2022-03-31 13:48:00 Dimitrios Ray spital ESTIMATED GFR 2022-03-31 09:00:00 Dimitrios Ray spital ZZCOVID-19 ANTI-SPIKE IGG 2022-03-31 09:00:00 Jc [facility] ANTIBODY TITER Patel VANCOMYCIN LEVEL, RANDOM 2022-03-31 09:00:00 Cris Ramirez [facility] LIPID PANEL 2022-03-31 09:00:00 Dimitrios Ray HEMOGLOBIN A1C 2022-03-31 09:00:00 Kenyon Tarango [facility] COVID-19 SEROLOGY PATIENT 2022-03-31 09:00:00 Michael Greene [facility] SURVEILLANCE Patel HC COMPLETE BLD COUNT 2022-03-31 09:00:00 [facility] BASIC METABOLIC PANEL 2022-03-31 09:00:00 [facility] POC [facility]SE 2022-03-31 02:08:00 Dimitrios Ray spital POC GLUCOSE 2022-03-30 23:28:00 Dimitrios Ray spital SEDIMENTATION RATE 2022-03-30 21:09:00 Bernadette Rocha [facility] C-REACTIVE PROTEIN 2022-03-30 21:09:00 Aj [facility] POC GLUCOSE 2022-03-30 19:21:00 Dimitrios Ray spital POC GLUCOSE 2022-03-30 17:28:00 Dimitrios Ray spital POC GLUCOSE 2022-03-30 16:56:00 Dimitrios Ray spital POC GLUCOSE 2022-03-30 14:52:00 Dimitrios Ray Ho spital CYSTATIN C 2022-03-30 08:59:00 Cris Ramirez Ho spital ESTIMATED GFR 2022-03-30 08:59:00 Cris Ramirez spital XR TIBIA FIBULA 2 VW LEFT 2022-03-30 07:34:04 [facility] BLOOD CULTURE, AEROBIC & 2022-03-30 07:33:00 [facility] ANAEROBIC HC COMPLETE BLD COUNT 2022-03-30 07:33:00 [facility] W/AUTO DIFF COMPREHENSIVE METABOLIC 2022-03-30 07:33:00 [facility] PANEL PROTHROMBIN TIME WITH INR 2022-03-30 07:33:00 [facility] PARTIAL THROMBOPLASTIN 2022-03-30 07:33:00 [facility] TIME (PTT) ESTIMATED GFR 2022-03-30 07:33:00 [facility] SPLIT THICKNESS SKIN 2022-02-24 14:36:00 Eden Fuller [facility] 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 [place] [facility] PROCEDURES DISCLOSURE AND CONSENT, 2022-02-20 05:01:00 Doctor [facility], [facility]ICAL [place] [facility] PROCEDURES INTUBATION 2022-01-12 12:50:28 Angel Giraldo [facility] WOUND CLOSURE 2022-01-12 12:05:00 Eden Fuller [facility] POCT GLUCOSE (AUTOMATED) 2022-01-12 11:56:00 Eden Fuller [facility] POCT GLUCOSE (AUTOMATED) 2022-01-12 11:56:00 Eden Fuller [facility] Branch COVID-19 (ID NOW RAPID 2022-01-12 10:46:[address] [facility] TESTING) Medical Branch LAB ONLY COVID 2022-01-12 10:46:00 Eden Fuller [facility] INTERPRETATION Medical Branch COVID-19 (ID NOW RAPID 2022-01-12 10:46:[address] [facility] TESTING) Medical Branch LAB ONLY COVID 2022-01-12 10:46:00 Eden Fuller [facility] SURGERY [facility] 2022-01-12 05:01:00 Doctor Unassdevin, [facility] [place] [facility] CONSENT/REFUSAL FOR 2021-08-19 18:37:[address] [facility] DIAGNOSIS AND TREATMENT [place] [place] [facility] SARS-COV-2 COVID-19 2021-05-30 22:19:04 Doctor Unagabriel, [facility] VACCINE BOOSTER,0.25ML,IM [place] [facility] (MODERNA) CONSULT ADULT OT - 2021-02-28 00:00:00 [facility] OUTPATIENT Medical Branch CONSULT ADULT OT - 2021-02-21 00:00:00 [facility] OUTPATIENT Medical Branch DME/SUPPLY JUSTIFICATION 2020-12-09 05:01:00 Doctor Unagabriel, [facility] [place] [facility] POCT GLUCOSE (AUTOMATED) 2020-12-03 16:49:00 Eden Fuller [facility] POCT GLUCOSE (AUTOMATED) 2020-12-03 13:13:00 Eden Fuller [facility] POCT GLUCOSE (AUTOMATED) 2020-12-03 02:05:00 Eden Fuller [facility] POCT GLUCOSE (AUTOMATED) 2020-12-02 21:46:00 Eden Fuller [facility] POCT GLUCOSE (AUTOMATED) 2020-12-02 20:47:00 Eden Fuller [facility] POCT GLUCOSE (AUTOMATED) 2020-12-02 17:01:00 [facility] POCT GLUCOSE (AUTOMATED) 2020-12-02 13:01:00 Fuller Eden Subramanian versity of [facility] POCT GLUCOSE (AUTOMATED) 2020-12-02 09:11:00 Fuller Eden Subramanian versity of [facility] POCT GLUCOSE (AUTOMATED) 2020-12-02 05:45:00 Fuller [facility] POCT GLUCOSE (AUTOMATED) 2020-12-02 01:18:00 Fuller Eden Subramanian versity of [facility] POCT GLUCOSE (AUTOMATED) 2020-12-01 21:51:00 Jonny [facility] POCT GLUCOSE (AUTOMATED) 2020-12-01 17:41:00 Fuller [facility] POCT GLUCOSE (AUTOMATED) 2020-12-01 13:11:00 Jonny [facility] POCT GLUCOSE (AUTOMATED) 2020-12-01 09:06:00 Fuller Eden [facility] POCT GLUCOSE (AUTOMATED) 2020-12-01 05:42:00 Jonny [facility] POCT GLUCOSE (AUTOMATED) 2020-12-01 01:30:00 Jonny Eden [facility] POCT GLUCOSE (AUTOMATED) 2020-11-30 21:03:00 Jonny [facility] POCT GLUCOSE (AUTOMATED) 2020-11-30 17:06:00 Jonny Eden [facility] ([facility]OMATED) 2020-11-30 12:49:00 Jonny Eden [facility] PHOSPHORUS 2020-11-30 10:29:00 Melba Lopez [facility] MAGNESIUM 2020-11-30 10:29:00 Melba Lopez [facility] BASIC METABOLIC PANEL 2020-11-30 10:29:00 Melba Lopez [facility] (NA, K, CL, CO2, GLUCOSE, Medica l Branch BUN, CREATININE, CA) CBC WITH DIFF 2020-11-30 10:29:00 Melba Lopez [facility] POCT GLUCOSE (AUTOMATED) 2020-11-30 10:27:00 Eden Fuller [facility] PO[facility] GLUCOSE (AUTOMATED) 2020-11-30 04:59:00 Eden Fuller [facility] POCT GLUCOSE (AUTOMATED) 2020-11-30 01:08:00 Eden Fuller [facility] POCT GLUCOSE (AUTOMATED) 2020-11-29 22:16:00 Eden Fuller [facility] POCT GLUCOSE (AUTOMATED) 2020-11-29 16:57:00 Eden [facility] POCT GLUCOSE (AUTOMATED) 2020-11-29 13:58:00 Eden [facility] POCT GLUCOSE (AUTOMATED) 2020-11-29 01:01:00 [facility] 2020-11-28 22:21:00 Eden Fuller [facility] (AUTOMATED) 2020-11-28 17:22:00 Eden [facility] (AUTOMATED) 2020-11-28 14:25:00 Eden Fuller [facility] (AUTOMATED) 2020-11-28 13:18:00 Eden Fuller [facility] 2020-11-28 10:03:00 Melba Lopez [facility] MAGNESIUM 2020-11-28 10:03:00 Melba Lopez [facility] BASIC METABOLIC PANEL 2020-11-28 10:03:00 Melba Lopez [facility] (NA, K, CL, CO2, GLUCOSE, Medica l Branch BUN, CREATININE, CA) CBC WITH DIFF 2020-11-28 10:03:00 Melba Lopez [facility] POCT GLUCOSE (AUTOMATED) 2020-11-28 09:57:00 Eden Fuller [facility] (AUTOMATED) 2020-11-28 05:43:00 Eden Fuller [facility] POCT GLUCOSE (AUTOMATED) 2020-11-28 01:59:00 Eden Fuller [facility] POCT GLUCOSE (AUTOMATED) 2020-11-27 21:26:00 Eden Fuller [facility] POCT GLUCOSE (AUTOMATED) 2020-11-27 16:45:00 Eden Fuller [facility] PROTHROMBIN TIME / INR 2020-11-27 15:50:00 Peña, [facility] ACTIVATED PARTIAL 2020-11-27 15:50:00 Peña, [facility] THRMPLAS SOLOMON [facility] FIBRINOGEN 2020-11-27 15:50:00 Peña, [facility] PREPARE PACKED RBC 2020-11-27 15:48:00 Peña, [facility] POCT GLUCOSE (AUTOMATED) 2020-11-27 12:35:00 dEen Fuller [facility] PHOSPHORUS 2020-11-27 11:41:00 Peña, [facility] MAGNESIUM 2020-11-27 11:41:00 Peña, [facility] BASIC METABOLIC PANEL 2020-11-27 11:41:00 Mariana [facility] (NA, K, CL, CO2, GLUCOSE, Medica l Branch BUN, CREATININE, CA) CBC WITH DIFF 2020-11-27 11:41:00 Mariana [facility] POCT GLUCOSE (AUTOMATED) 2020-11-27 09:39:00 Eden Fuller [facility] POCT GLUCOSE (AUTOMATED) 2020-11-27 04:27:00 Eden Fuller [facility] POCT GLUCOSE (AUTOMATED) 2020-11-27 00:32:00 Eden Fuller [facility] POCT GLUCOSE (AUTOMATED) 2020-11-26 22:16:00 Eden Fuller [facility] PREPARE PACKED RBC 2020-11-26 21:47:27 Mariana [facility] POCT GLUCOSE (AUTOMATED) 2020-11-26 20:47:00 Eden [facility] PO[facility]SE (AUTOMATED) 2020-11-26 20:47:00 Eden Fuller versity [facility] PHOSPHORUS 2020-11-26 18:24:00 Peña, [facility] MAGNESIUM 2020-11-26 18:24:00 Peña, [facility] BASIC METABOLIC PANEL 2020-11-26 18:24:00 Peña, [facility] (NA, K, CL, CO2, GLUCOSE, Medica l Branch BUN, CREATININE, CA) CBC WITH DIFF 2020-11-26 18:24:00 Peña, [facility] PHOSPHORUS 2020-11-26 18:24:00 Peña, [facility] MAGNESIUM 2020-11-26 18:24:00 Peña, [facility] BASIC METABOLIC PANEL 2020-11-26 18:24:00 Peña, [facility] (NA, K, CL, CO2, GLUCOSE, Medica l Branch BUN, CREATININE, CA) CBC WITH DIFF 2020-11-26 18:24:00 Peña, [facility] POCT GLUCOSE (AUTOMATED) 2020-11-26 17:23:00 [facility] (AUTOMATED) 2020-11-26 17:23:00 Eden [facility] PO[facility]SE (AUTOMATED) 2020-11-26 12:55:00 Eden [facility] PO[facility]UCOSE (AUTOMATED) 2020-11-26 12:55:00 Eden [facility] PO[facility]SE (AUTOMATED) 2020-11-26 09:31:00 Eden [facility] PO[facility]UCOSE (AUTOMATED) 2020-11-26 09:31:00 [facility]SE (AUTOMATED) 2020-11-26 05:07:00 Eden [facility] PO[facility]UCOSE (AUTOMATED) 2020-11-26 05:07:00 Fuller, Eden Uni [facility] CBC WITHOUT DIFF 2020-11-26 04:21:00 [place], [facility] CBC WITHOUT DIFF 2020-11-26 04:21:00 [place], [facility] TRANSFUSE PACKED RBC 2020-11-26 03:01:44 Haim [facility] POCT GLUCOSE (AUTOMATED) 2020-11-26 00:46:00 Eden Fuller [facility] POCT GLUCOSE (AUTOMATED) 2020-11-26 00:46:00 Eden Fuller [facility] PREPARE PACKED RBC 2020-11-26 00:40:19 [place], [facility] PREPARE PACKED RBC 2020-11-26 00:40:19 Haim [facility] PHOSPHORUS 2020-11-25 23:12:00 Melba Lopez [facility] MAGNESIUM 2020-11-25 23:12:00 Melba Lopez [facility] BASIC METABOLIC PANEL 2020-11-25 23:12:00 Melba Lopez [facility] (NA, K, CL, CO2, GLUCOSE, Medica l Branch BUN, CREATININE, CA) CBC WITHOUT DIFF 2020-11-25 23:12:00 Melba Lopez [facility] PHOSPHORUS 2020-11-25 23:12:00 Melba Lopez [facility] MAGNESIUM 2020-11-25 23:12:00 Melba Lopez [facility] BASIC METABOLIC PANEL 2020-11-25 23:12:00 Melba Lopez [facility] (NA, K, CL, CO2, GLUCOSE, Medica l Branch BUN, CREATININE, CA) CBC WITHOUT DIFF 2020-11-25 23:12:00 Melba Lopez [facility] POCT GLUCOSE (AUTOMATED) 2020-11-25 22:47:00 Eden Fuller [facility] POCT GLUCOSE (AUTOMATED) 2020-11-25 22:47:00 Fuller, Eden [facility] VBG+VCOOX+NA+K+GLU+CA2+ 2020-11-25 19:55:00 Eden Fuller [facility] SURGICAL PATHOLOGY EXAM 2020-11-25 19:03:00 Jeronimo Ha [facility] BELOW THE KNEE AMPUTATION 2020-11-25 17:59:00 Jeronimo Ha [facility] BELOW THE KNEE AMPUTATION 2020-11-25 17:59:00 Jeronimo Ha [facility] POCT GLUCOSE (AUTOMATED) 2020-11-25 17:20:00 Eden Fuller [facility] POCT GLUCOSE (AUTOMATED) 2020-11-25 17:20:00 Eden Fuller [facility] POCT GLUCOSE (AUTOMATED) 2020-11-25 13:06:00 Eden Fuller [facility] POCT GLUCOSE (AUTOMATED) 2020-11-25 13:06:00 Eden Fuller [facility] HB ABO GROUPING 2020-11-25 10:30:00 Melba Lopez [facility] HB ABO GROUPING 2020-11-25 10:30:00 Melba Lopez [facility] PHOSPHORUS 2020-11-25 09:19:00 Melba Lopez [facility] MAGNESIUM 2020-11-25 09:19:00 Melba Lopez [facility] BASIC METABOLIC PANEL 2020-11-25 09:19:00 Melba Lopez [facility] (NA, K, CL, CO2, GLUCOSE, Medica l Branch BUN, CREATININE, CA) CBC WITH DIFF 2020-11-25 09:19:00 Melba Lopez [facility] PHOSPHORUS 2020-11-25 09:19:00 Melba Lopez [facility] MAGNESIUM 2020-11-25 09:19:00 Melba Lopez [facility] BASIC METABOLIC PANEL 2020-11-25 09:19:[address] [facility] (NA, K, CL, CO2, GLUCOSE, Medica l Branch BUN, CREATININE, CA) CBC WITH DIFF 2020-11-25 09:19:00 Melba Lopez [facility] COVID-19 (ID NOW RAPID 2020-11-25 09:18:00 [place], [facility] TESTING) Medical Branch LAB ONLY COVID 2020-11-25 09:18:00 [place], [facility] INTERPRETATION [facility] COVID-19 (ID NOW RAPID 2020-11-25 09:18:00 [place], [facility] TESTING) Medical Branch LAB ONLY COVID 2020-11-25 09:18:00 [place], [facility] INTERPRETATION [facility] POCT GLUCOSE (AUTOMATED) 2020-11-25 09:16:00 Eden [facility] (AUTOMATED) 2020-11-25 09:16:00 [facility] POCT GLUCOSE (AUTOMATED) 2020-11-25 01:02:00 [facility] POCT GLUCOSE (AUTOMATED) 2020-11-25 01:02:00 [facility] POCT GLUCOSE (AUTOMATED) 2020-11-24 20:55:00 [facility] POCT GLUCOSE (AUTOMATED) 2020-11-24 20:55:00 [facility] POCT GLUCOSE (AUTOMATED) 2020-11-24 18:09:00 [facility] POCT GLUCOSE (AUTOMATED) 2020-11-24 18:09:00 [facility] POCT GLUCOSE (AUTOMATED) 2020-11-24 16:34:00 [facility] POCT GLUCOSE (AUTOMATED) 2020-11-24 16:34:00 [facility] POCT GLUCOSE (AUTOMATED) 2020-11-24 13:24:00 Eden [facility] POCT GLUCOSE (AUTOMATED) 2020-11-24 13:24:00 Eden Fuller versity of [facility] PHOSPHORUS 2020-11-24 11:09:00 Melba Lopez [facility] MAGNESIUM 2020-11-24 11:09:00 Melba Lopez [facility] BASIC METABOLIC PANEL 2020-11-24 11:09:00 Melba Lopez [facility] (NA, K, CL, CO2, GLUCOSE, Medica l Branch BUN, CREATININE, CA) CBC WITH DIFF 2020-11-24 11:09:00 Melba Lopez [facility] PHOSPHORUS 2020-11-24 11:09:00 Melba Lopez [facility] MAGNESIUM 2020-11-24 11:09:00 Melba Lopez [facility] BASIC METABOLIC PANEL 2020-11-24 11:09:00 Melba Lopez [facility] (NA, K, CL, CO2, GLUCOSE, Medica l Branch BUN, CREATININE, CA) CBC WITH DIFF 2020-11-24 11:09:00 Melba Lopez [facility] POCT GLUCOSE (AUTOMATED) 2020-11-24 00:55:00 [facility] POCT GLUCOSE (AUTOMATED) 2020-11-24 00:55:00 [facility] POCT GLUCOSE (AUTOMATED) 2020-11-23 22:24:00 [facility] POCT GLUCOSE (AUTOMATED) 2020-11-23 22:24:00 [facility] POCT GLUCOSE (AUTOMATED) 2020-11-23 20:01:00 Eden Fuller versity of [facility] POCT GLUCOSE (AUTOMATED) 2020-11-23 20:01:00 Eden Fuller versity of [facility] POCT GLUCOSE (AUTOMATED) 2020-11-23 16:26:00 Eden Fuller versity of [facility] POCT GLUCOSE (AUTOMATED) 2020-11-23 16:26:00 Eden Fuller versity of [facility] POCT GLUCOSE (AUTOMATED) 2020-11-23 13:11:00 Eden Fuller [facility] POCT GLUCOSE (AUTOMATED) 2020-11-23 13:11:00 Fuller, Eden Subramanian versity of [facility] POCT GLUCOSE (AUTOMATED) 2020-11-23 09:53:00 Fuller, Eden Subramanian versity of [facility] POCT GLUCOSE (AUTOMATED) 2020-11-23 09:53:00 Fuller, Eden Subramanian versity of [facility] POCT GLUCOSE (AUTOMATED) 2020-11-23 07:19:00 Fuller, Eden Subramanian versity of [facility] POCT GLUCOSE (AUTOMATED) 2020-11-23 07:19:00 Fuller, Eden Subramanian versity of [facility] POCT GLUCOSE (AUTOMATED) 2020-11-23 03:32:00 Fuller, Eden Subramanian versity of [facility] POCT GLUCOSE (AUTOMATED) 2020-11-23 03:32:00 Fuller, Eden Subramanian versity of [facility] POCT GLUCOSE (AUTOMATED) 2020-11-23 01:03:00 Fuller, Eden Uni versity of [facility] POCT GLUCOSE (AUTOMATED) 2020-11-23 01:03:00 Fuller, Eden Subramanian versity of [facility] POCT GLUCOSE (AUTOMATED) 2020-11-22 22:20:00 Fuller, Eden Subramanian versity of [facility] POCT GLUCOSE (AUTOMATED) 2020-11-22 22:20:00 Fuller, Eden Subramanian versity of [facility] POCT GLUCOSE (AUTOMATED) 2020-11-22 22:19:00 Fuller, Eden Subramanian versity of [facility] POCT GLUCOSE (AUTOMATED) 2020-11-22 22:19:00 Fuller, Eden Uni versity of [facility] POCT GLUCOSE (AUTOMATED) 2020-11-22 16:54:00 Fuller, Eden Uni versity of [facility] POCT GLUCOSE (AUTOMATED) 2020-11-22 16:54:00 Fuller, Eden Marilynn versity of [facility] POCT GLUCOSE (AUTOMATED) 2020-11-22 14:18:00 Fuller, Eden Subramanian versity of [facility] POCT GLUCOSE (AUTOMATED) 2020-11-22 14:18:00 Fuller, Eden Marilynn versity of [facility] PHOSPHORUS 2020-11-22 09:10:00 Mariana [facility] MAGNESIUM 2020-11-22 09:10:00 Peña, [facility] BASIC METABOLIC PANEL 2020-11-22 09:10:00 Peña, [facility] (NA, K, CL, CO2, GLUCOSE, Medica l Branch BUN, CREATININE, CA) CBC WITH DIFF 2020-11-22 09:10:00 Peña, [facility] PHOSPHORUS 2020-11-22 09:10:00 Peña, [facility] MAGNESIUM 2020-11-22 09:10:00 Peña, [facility] BASIC METABOLIC PANEL 2020-11-22 09:10:00 Peña, [facility] (NA, K, CL, CO2, GLUCOSE, Medica l Branch BUN, CREATININE, CA) CBC WITH DIFF 2020-11-22 09:10:00 Peña, [facility] POCT GLUCOSE (AUTOMATED) 2020-11-22 09:08:00 [facility] POCT GLUCOSE (AUTOMATED) 2020-11-22 09:08:00 [facility] POCT GLUCOSE (AUTOMATED) 2020-11-22 05:53:00 Eden Fuller versity of [facility] POCT GLUCOSE (AUTOMATED) 2020-11-22 05:53:00 Eden Fuller versity of [facility] POCT GLUCOSE (AUTOMATED) 2020-11-22 01:47:00 [facility] POCT GLUCOSE (AUTOMATED) 2020-11-22 01:47:00 Eden Fuller versity of [facility] POCT GLUCOSE (AUTOMATED) 2020-11-21 23:10:00 Eden Fuller versity of [facility] POCT GLUCOSE (AUTOMATED) 2020-11-21 23:10:00 Eden Fuller versity of [facility] POCT GLUCOSE (AUTOMATED) 2020-11-21 18:14:00 Eden Fuller versity of [facility] POCT GLUCOSE (AUTOMATED) 2020-11-21 18:14:00 Eden Fuller versity of [facility] POCT GLUCOSE (AUTOMATED) 2020-11-21 12:40:00 [facility] POCT GLUCOSE (AUTOMATED) 2020-11-21 12:40:00 Eden Fuller versity of [facility] MAGNESIUM 2020-11-21 09:47:00 Peña, [facility] BASIC METABOLIC PANEL 2020-11-21 09:47:00 Peña, [facility] (NA, K, CL, CO2, GLUCOSE, Medica l Branch BUN, CREATININE, CA) CBC WITH DIFF 2020-11-21 09:47:00 Peña, [facility] MAGNESIUM 2020-11-21 09:47:00 Peña, [facility] BASIC METABOLIC PANEL 2020-11-21 09:47:00 Peña, [facility] (NA, K, CL, CO2, GLUCOSE, Medica l Branch BUN, CREATININE, CA) CBC WITH DIFF 2020-11-21 09:47:00 Peña, [facility] POCT GLUCOSE (AUTOMATED) 2020-11-21 01:50:00 [facility] POCT GLUCOSE (AUTOMATED) 2020-11-21 01:50:00 [facility] POCT GLUCOSE (AUTOMATED) 2020-11-20 23:21:00 [facility] POCT GLUCOSE (AUTOMATED) 2020-11-20 23:21:00 [facility] POCT GLUCOSE (AUTOMATED) 2020-11-20 19:35:00 Eden Fuller versity of [facility] POCT GLUCOSE (AUTOMATED) 2020-11-20 19:35:00 Eden Fuller versity of [facility] POCT GLUCOSE (AUTOMATED) 2020-11-20 16:41:00 Eden Fuller versity of [facility] POCT GLUCOSE (AUTOMATED) 2020-11-20 16:41:00 Eden Fuller versity of [facility] POCT GLUCOSE (AUTOMATED) 2020-11-20 12:57:00 Eden Fuller versity of [facility] POCT GLUCOSE (AUTOMATED) 2020-11-20 12:57:00 Eden Fuller versity [facility] PHOSPHORUS 2020-11-20 08:35:00 Peña, [facility] MAGNESIUM 2020-11-20 08:35:00 Peña, [facility] BASIC METABOLIC PANEL 2020-11-20 08:35:00 Peña, [facility] (NA, K, CL, CO2, GLUCOSE, Medica l Branch BUN, CREATININE, CA) CBC WITH DIFF 2020-11-20 08:35:00 Peña, [facility] PHOSPHORUS 2020-11-20 08:35:00 Peña, [facility] MAGNESIUM 2020-11-20 08:35:00 Peña, [facility] BASIC METABOLIC PANEL 2020-11-20 08:35:00 Peña, [facility] (NA, K, CL, CO2, GLUCOSE, Medica l Branch BUN, CREATININE, CA) CBC WITH DIFF 2020-11-20 08:35:00 Peña, [facility] POCT GLUCOSE (AUTOMATED) 2020-11-20 00:47:00 [facility]OMATED) 2020-11-20 00:47:00 [facility] PO[facility]UCOSE (AUTOMATED) 2020-11-19 21:18:00 Eden [facility] PO[facility] GLUCOSE (AUTOMATED) 2020-11-19 21:18:00 [facility] POCT GLUCOSE (AUTOMATED) 2020-11-19 17:33:00 [facility] PO[facility]UCOSE (AUTOMATED) 2020-11-19 17:33:00 [facility] POCT GLUCOSE (AUTOMATED) 2020-11-19 13:48:00 Eden [facility] PO[facility] GLUCOSE (AUTOMATED) 2020-11-19 13:48:00 Eden Fuller versity [facility] POCT GLUCOSE (AUTOMATED) 2020-11-19 13:07:00 Eden [facility] PO[facility]UCOSE (AUTOMATED) 2020-11-19 13:07:00 Eden [facility] 2020-11-19 10:50:00 Peña, [facility] MAGNESIUM 2020-11-19 10:50:00 Peña, [facility] BASIC METABOLIC PANEL 2020-11-19 10:50:00 Peña [facility] (NA, K, CL, CO2, GLUCOSE, Medica l Branch BUN, CREATININE, CA) CBC WITH DIFF 2020-11-19 10:50:00 Peña [facility] PHOSPHORUS 2020-11-19 10:50:00 Peña, [facility] MAGNESIUM 2020-11-19 10:50:00 Peña, [facility] BASIC METABOLIC PANEL 2020-11-19 10:50:00 Peña [facility] (NA, K, CL, CO2, GLUCOSE, Medica l Branch BUN, CREATININE, CA) CBC WITH DIFF 2020-11-19 10:50:00 Peña [facility] POCT GLUCOSE (AUTOMATED) 2020-11-19 09:15:00 Eden [facility]UCOSE (AUTOMATED) 2020-11-19 09:15:00 Eden Fuller [facility] POCT GLUCOSE (AUTOMATED) 2020-11-19 05:17:00 [facility]COSE (AUTOMATED) 2020-11-19 05:17:00 Eden [facility] PO[facility] GLUCOSE (AUTOMATED) 2020-11-19 00:56:00 Eden [facility] PO[facility] GLUCOSE (AUTOMATED) 2020-11-19 00:56:00 Eden [facility] PO[facility] GLUCOSE (AUTOMATED) 2020-11-18 23:50:00 Eden [facility] POCT GLUCOSE (AUTOMATED) 2020-11-18 23:50:00 Piter Fulleren Uni [facility] POCT GLUCOSE (AUTOMATED) 2020-11-18 21:16:00 Jonny Eden Subramanian [facility] PO[facility] GLUCOSE (AUTOMATED) 2020-11-18 21:16:00 Jonny Eden [facility]ramanian [facility] PO[facility] GLUCOSE (AUTOMATED) 2020-11-18 18:23:00 Jonny Eden [facility] PO[facility] GLUCOSE (AUTOMATED) 2020-11-18 18:23:00 Jonny Eden [facility] PO[facility] GLUCOSE (AUTOMATED) 2020-11-18 18:23:00 Jonny Eden [facility] PO[facility] GLUCOSE (AUTOMATED) 2020-11-18 12:35:00 Jonny Eden Subramanian [facility] POCT GLUCOSE (AUTOMATED) 2020-11-18 12:35:00 Jonny Eden Subramanian [facility] POCT GLUCOSE (AUTOMATED) 2020-11-18 12:35:00 Piter Fullerrommel Subramanian [facility] PHOSPHORUS 2020-11-18 10:03:00 Peña [facility] MAGNESIUM 2020-11-18 10:03:00 Peña [facility] BASIC METABOLIC PANEL 2020-11-18 10:03:00 Peña [facility] (NA, K, CL, CO2, GLUCOSE, Medica l Branch BUN, CREATININE, CA) CBC WITH DIFF 2020-11-18 10:03:00 Peña, [facility] PHOSPHORUS 2020-11-18 10:03:00 Peña [facility] MAGNESIUM 2020-11-18 10:03:00 Peña [facility] BASIC METABOLIC PANEL 2020-11-18 10:03:00 Peña [facility] (NA, K, CL, CO2, GLUCOSE, Medica l Branch BUN, CREATININE, CA) CBC WITH DIFF 2020-11-18 10:03:00 Peña, [facility] PHOSPHORUS 2020-11-18 10:03:00 Peña [facility] MAGNESIUM 2020-11-18 10:03:00 Peña, [facility] BASIC METABOLIC PANEL 2020-11-18 10:03:00 Mariana [facility] (NA, K, CL, CO2, GLUCOSE, Medica l Branch BUN, CREATININE, CA) CBC WITH DIFF 2020-11-18 10:03:00 Mariana [facility] POCT GLUCOSE (AUTOMATED) 2020-11-18 09:20:00 Eden Fuller [facility] POCT GLUCOSE (AUTOMATED) 2020-11-18 09:20:00 Eden Fuller Marilynn [facility] POCT GLUCOSE (AUTOMATED) 2020-11-18 09:20:00 Eden Fuller [facility] POCT GLUCOSE (AUTOMATED) 2020-11-18 04:54:00 Eden Fuller Marilynn [facility] POCT GLUCOSE (AUTOMATED) 2020-11-18 04:54:00 Eden Fuller Marilynn [facility] POCT GLUCOSE (AUTOMATED) 2020-11-18 04:54:00 Eden Fuller Marilynn [facility] POCT GLUCOSE (AUTOMATED) 2020-11-18 01:01:00 Eden Fuller Marilynn [facility] POCT GLUCOSE (AUTOMATED) 2020-11-18 01:01:00 Eden Fuller Marilynn [facility] POCT GLUCOSE (AUTOMATED) 2020-11-18 01:01:00 Eden Fuller [facility] PHOSPHORUS 2020-11-17 22:39:00 Mariana [facility] MAGNESIUM 2020-11-17 22:39:00 Mariana [facility] BASIC METABOLIC PANEL 2020-11-17 22:39:00 Mariana [facility] (NA, K, CL, CO2, GLUCOSE, Medica l Branch BUN, CREATININE, CA) ACUTE CARE VENOUS BLOOD 2020-11-17 22:39:00 Mariana [facility] GAS [facility] CBC WITH DIFF 2020-11-17 22:39:00 Mariana [facility] PHOSPHORUS 2020-11-17 22:39:00 Peña, [facility] MAGNESIUM 2020-11-17 22:39:00 Peña, [facility] BASIC METABOLIC PANEL 2020-11-17 22:39:00 Peña, [facility] (NA, K, CL, CO2, GLUCOSE, Medica l Branch BUN, CREATININE, CA) ACUTE CARE VENOUS BLOOD 2020-11-17 22:39:00 Peña, [facility] CBC WITH DIFF 2020-11-17 22:39:00 Peña, [facility] PHOSPHORUS 2020-11-17 22:39:00 Peña, [facility] MAGNESIUM 2020-11-17 22:39:00 Peña, [facility] BASIC METABOLIC PANEL 2020-11-17 22:39[facility], CL, CO2, GLUCOSE, Medica l Branch BUN, CREATININE, CA) ACUTE CARE VENOUS BLOOD 2020-11-17 22:39:00 Peña, [facility] CBC WITH DIFF 2020-11-17 22:39:00 Peña, [facility] POCT GLUCOSE (AUTOMATED) 2020-11-17 21:14:00 Eden Fuller [facility] POCT GLUCOSE (AUTOMATED) 2020-11-17 21:14:00 Eden Fuller [facility] POCT GLUCOSE (AUTOMATED) 2020-11-17 21:14:00 Eden Fuller [facility] POCT GLUCOSE (AUTOMATED) 2020-11-17 19:37:00 Eden Fuller [facility] POCT GLUCOSE (AUTOMATED) 2020-11-17 19:37:00 Eden Fuller [facility] POCT GLUCOSE (AUTOMATED) 2020-11-17 19:37:00 Eden Fuller [facility] QUANT TISSUE 2020-11-17 17:32:52 Jerrica Peoples [facility] QUANT TISSUE 2020-11-17 17:32:52 Jerrica Peoples [facility] QUANT TISSUE 2020-11-17 17:32:52 Jerrica Peoples [facility] SURGICAL PATHOLOGY EXAM 2020-11-17 16:35:00 [facility] 2020-11-17 16:35:00 [facility]ANT [facility]ISSUE 2020-11-17 15:36:13 Jerrica Peoples [facility] QUANT TISSUE 2020-11-17 15:36:13 Jerrica Peoples [facility] QUANT TISSUE 2020-11-17 15:36:13 Jerrica Peoples [facility] FOOT AMPUTATION 2020-11-17 13:51:00 Jerrica Peoples [facility] FOOT AMPUTATION 2020-11-17 13:51:00 Jerrica Peoples [facility] POCT GLUCOSE (AUTOMATED) 2020-11-17 12:31:00 Eden Fuller [facility] POCT GLUCOSE (AUTOMATED) 2020-11-17 12:31:00 Eden Fuller [facility] POCT GLUCOSE (AUTOMATED) 2020-11-17 12:31:00 Eden Fuller [facility] COVID-19 (ID NOW RAPID 2020-11-17 12:26:[address] [facility] TESTING) Medical Branch LAB ONLY COVID 2020-11-17 12:26:00 Melba Lopez [facility] INTERPRETATION [facility] Branch COVID-19 (ID NOW RAPID 2020-11-17 12:26:[address] [facility] TESTING) Medical Branch LAB ONLY COVID 2020-11-17 12:26:00 Melba Lopez [facility] Branch COVID-19 (ID NOW RAPID 2020-11-17 12:26:[address] [facility] TESTING) Medical Branch LAB ONLY COVID 2020-11-17 12:26:[address] [facility] PHOSPHORUS 2020-11-17 09:25:00 Peña, [facility] MAGNESIUM 2020-11-17 09:25:00 Peña, [facility] BASIC METABOLIC PANEL 2020-11-17 09:[facility], CO[facility], GLUCOSE, Medica l Branch BUN, CREATININE, CA) CBC WITH DIFF 2020-11-17 09:25:00 Peña [facility] HB ABO GROUPING 2020-11-17 09:25:00 Melba Lopez [facility] PHOSPHORUS 2020-11-17 09:25:00 Peña, [facility] MAGNESIUM 2020-11-17 09:25:00 Peña, [facility] BASIC METABOLIC PANEL 2020-11-17 09:25[facility], CL, CO2, GLUCOSE, Medica l Branch BUN, CREATININE, CA) CBC WITH DIFF 2020-11-17 09:25:00 Peña, [facility] HB ABO GROUPING 2020-11-17 09:25:00 Melba Lopez [facility] PHOSPHORUS 2020-11-17 09:25:00 Peña, [facility] MAGNESIUM 2020-11-17 09:25:00 Peña, [facility] BASIC METABOLIC PANEL 2020-11-17 09:25:00 Peña, [facility] (NA, K, CL, CO2, GLUCOSE, Medica l Branch BUN, CREATININE, CA) CBC WITH DIFF 2020-11-17 09:25:00 Peña [facility] HB ABO GROUPING 2020-11-17 09:25:00 Melba Lopez [facility] POCT GLUCOSE (AUTOMATED) 2020-11-17 09:12:00 Eden Fuller [facility] POCT GLUCOSE (AUTOMATED) 2020-11-17 09:12:00 Eden Fuller [facility] [place] [facility] POCT GLUCOSE (AUTOMATED) 2020-11-17 09:12:00 Eden Fuller Marilynn [facility] [place] [facility] POCT GLUCOSE (AUTOMATED) 2020-11-17 05:11:00 Fuller Eden Subramanian [facility] [place] [facility] POCT GLUCOSE (AUTOMATED) 2020-11-17 05:11:00 Piter Fullerrommel Subramanian [facility] POCT GLUCOSE (AUTOMATED) 2020-11-17 05:11:00 Eden Fuller Mar[facility]nn [facility] [place] [facility] POCT GLUCOSE (AUTOMATED) 2020-11-17 01:03:00 Piter Fullerrommel Subramanian versity of [facility] POCT GLUCOSE (AUTOMATED) 2020-11-17 01:03:00 Eden Fuller Marilynn [facility] POCT GLUCOSE (AUTOMATED) 2020-11-17 01:03:00 Eden Fuller Marilynn [facility] POCT GLUCOSE (AUTOMATED) 2020-11-16 22:04:00 Eden Fuller Marilynn [facility] POCT GLUCOSE (AUTOMATED) 2020-11-16 22:04:00 Piter Fullerrommel [facility] [place] [facility] POCT GLUCOSE (AUTOMATED) 2020-11-16 22:04:00 Eden Fuller Mar[facility] [place] [facility] POCT GLUCOSE (AUTOMATED) 2020-11-16 17:01:00 Jonny Eden [facility] [place] [facility] POCT GLUCOSE (AUTOMATED) 2020-11-16 17:01:00 Eden Fuller Mar[facility]nn [facility] [place] [facility] POCT GLUCOSE (AUTOMATED) 2020-11-16 17:01:00 Eden Fuller Mar[facility]nn [facility] [place] [facility] POCT GLUCOSE (AUTOMATED) 2020-11-16 12:55:00 Eden Fuller Marilynn vers[facility] of [facility] POCT GLUCOSE (AUTOMATED) 2020-11-16 12:55:00 Eden Fuller Marilynn vers[facility] of [facility] POCT GLUCOSE (AUTOMATED) 2020-11-16 12:55:00 Eden Fuller Mar[facility] [place] [facility] PHOSPHORUS 2020-11-16 10:09:00 [facility] MAGNESIUM 2020-11-16 10:09:00 [facility] BASIC METABOLIC PANEL 2020-11-16 10:09:00 Peña, [facility] (NA, K, CL, CO2, GLUCOSE, Medica l Branch BUN, CREATININE, CA) CBC WITHOUT DIFF 2020-11-16 10:09:00 Peña, [facility] PHOSPHORUS 2020-11-16 10:09:00 Peña, [facility] MAGNESIUM 2020-11-16 10:09:00 Peña, [facility] BASIC METABOLIC PANEL 2020-11-16 10:09:00 Peña, [facility] (NA, K, CL, CO2, GLUCOSE, Medica l Branch BUN, CREATININE, CA) CBC WITHOUT DIFF 2020-11-16 10:09:00 Peña, [facility] PHOSPHORUS 2020-11-16 10:09:00 Peña, [facility] MAGNESIUM 2020-11-16 10:09:00 Peña, [facility] BASIC METABOLIC PANEL 2020-11-16 10:09:00 Peña, [facility] (NA, K, CL, CO2, GLUCOSE, Medica l Branch BUN, CREATININE, CA) CBC WITHOUT DIFF 2020-11-16 10:09:00 Peña, [facility] POCT GLUCOSE (AUTOMATED) 2020-11-16 09:15:00 Eden Fuller [facility] POCT GLUCOSE (AUTOMATED) 2020-11-16 09:15:00 Eden Fuller [facility] POCT GLUCOSE (AUTOMATED) 2020-11-16 09:15:00 Eden Fuller [facility] POCT GLUCOSE (AUTOMATED) 2020-11-16 05:07:00 Eden Fuller [facility] POCT GLUCOSE (AUTOMATED) 2020-11-16 05:07:00 Eden Fuller [facility] POCT GLUCOSE (AUTOMATED) 2020-11-16 05:07:00 Eden Fuller [facility] POCT GLUCOSE (AUTOMATED) 2020-11-16 01:01:00 Fuller, Eden [facility] [place] [facility] POCT GLUCOSE (AUTOMATED) 2020-11-16 01:01:00 Fuller, Eden Subramanian [facility] [place] [facility] POCT GLUCOSE (AUTOMATED) 2020-11-16 01:01:00 Fuller, Eden [facility] [place] [facility] POCT GLUCOSE (AUTOMATED) 2020-11-15 21:32:00 Fuller, Eden [facility] [place] [facility] POCT GLUCOSE (AUTOMATED) 2020-11-15 21:32:00 Fuller, Eden [facility] [place] [facility] POCT GLUCOSE (AUTOMATED) 2020-11-15 21:32:00 Fuller, Eden [facility] [place] [facility] POCT GLUCOSE (AUTOMATED) 2020-11-15 18:03:00 Fuller, Eden [facility] [place] [facility] POCT GLUCOSE (AUTOMATED) 2020-11-15 18:03:00 Fuller, Eden Marilynn [facility] [place] [facility] POCT GLUCOSE (AUTOMATED) 2020-11-15 18:03:00 Fuller, Eden Marilynn [facility] [place] [facility] POCT GLUCOSE (AUTOMATED) 2020-11-15 14:28:00 Fuller, Eden [facility] [place] [facility] POCT GLUCOSE (AUTOMATED) 2020-11-15 14:28:00 Fuller, Eden Mar[facility]nn [facility] [place] [facility] POCT GLUCOSE (AUTOMATED) 2020-11-15 14:28:00 Fuller, Eden Sub[facility] [place] [facility] POCT GLUCOSE (AUTOMATED) 2020-11-15 09:46:00 Fuller, Eden Marilynn [facility] [place] [facility] POCT GLUCOSE (AUTOMATED) 2020-11-15 09:46:00 Fuller, Eden [facility] [place] [facility] POCT GLUCOSE (AUTOMATED) 2020-11-15 09:46:00 Fuller, Eden Mar[facility]nn [facility] [place] [facility] POCT GLUCOSE (AUTOMATED) 2020-11-15 05:15:00 Fuller, Eden [facility] [place] [facility] POCT GLUCOSE (AUTOMATED) 2020-11-15 05:15:00 Fuller, Eden [facility] [place] [facility] POCT GLUCOSE (AUTOMATED) 2020-11-15 05:15:00 Fuller, Eden [facility] [place] [facility] POCT GLUCOSE (AUTOMATED) 2020-11-15 01:54:00 Fuller, Eden [facility] [place] [facility] POCT GLUCOSE (AUTOMATED) 2020-11-15 01:54:00 Fuller, Eden [facility] [place] [facility] POCT GLUCOSE (AUTOMATED) 2020-11-15 01:54:00 Fuller, Eden [facility] [place] [facility] POCT GLUCOSE (AUTOMATED) 2020-11-14 21:22:00 Fuller, Eden [facility] [place] [facility] POCT GLUCOSE (AUTOMATED) 2020-11-14 21:22:00 Fuller, Eden [facility] [place] [facility] POCT GLUCOSE (AUTOMATED) 2020-11-14 21:22:00 Fuller, Eden [facility] [place] [facility] POCT GLUCOSE (AUTOMATED) 2020-11-14 17:37:00 Fuller, Eden [facility] [place] [facility] POCT GLUCOSE (AUTOMATED) 2020-11-14 17:37:00 Fuller, Eden Marilynn [facility] [place] [facility] POCT GLUCOSE (AUTOMATED) 2020-11-14 17:37:00 Fuller, Eden [facility] [place] [facility] POCT GLUCOSE (AUTOMATED) 2020-11-14 12:32:00 Fuller, Eden [facility] [place] [facility] POCT GLUCOSE (AUTOMATED) 2020-11-14 12:32:00 Fuller, Eden [facility] [place] [facility] POCT GLUCOSE (AUTOMATED) 2020-11-14 12:32:00 FullerEden Marilynn [facility] [place] [facility] POCT GLUCOSE (AUTOMATED) 2020-11-14 09:43:00 Fuller, Eden [facility] [place] [facility] POCT GLUCOSE (AUTOMATED) 2020-11-14 09:43:00 Piter Fullerrommel [facility] [place] [facility] POCT GLUCOSE (AUTOMATED) 2020-11-14 09:43:00 Eden Fuller [facility] [place] [facility] POCT GLUCOSE (AUTOMATED) 2020-11-14 05:00:00 Eden Fuller [facility] [place] [facility] POCT GLUCOSE (AUTOMATED) 2020-11-14 05:00:00 Fuller, Eden Mar[facility] [place] [facility] POCT GLUCOSE (AUTOMATED) 2020-11-14 05:00:00 Fuller, Eden [facility] [place] [facility] POCT GLUCOSE (AUTOMATED) 2020-11-14 01:07:00 Eden Fuller [facility] POCT GLUCOSE (AUTOMATED) 2020-11-14 01:07:00 Fuller Eden Subramanian [facility] of [facility] POCT GLUCOSE (AUTOMATED) 2020-11-14 01:07:00 Eden Fuller [facility] POCT GLUCOSE (AUTOMATED) 2020-11-13 22:01:00 Jonny Eden [facility]ram[facility] POCT GLUCOSE (AUTOMATED) 2020-11-13 22:01:00 Fuller Eden Subramanian [facility] POCT GLUCOSE (AUTOMATED) 2020-11-13 22:01:00 Jonny Eden [facility] POCT GLUCOSE (AUTOMATED) 2020-11-13 17:33:00 Fuller Eden Subramanian versity of [facility] POCT GLUCOSE (AUTOMATED) 2020-11-13 17:33:00 Jonny Eden Subramanian [facility] of [facility] POCT GLUCOSE (AUTOMATED) 2020-11-13 17:33:00 Jonny Eden Subramanian [facility] POCT GLUCOSE (AUTOMATED) 2020-11-13 14:44:00 Jonny Eden Subramanian [facility] of [facility] POCT GLUCOSE (AUTOMATED) 2020-11-13 14:44:00 Jonny Eden Subramanian [facility] of [facility] POCT GLUCOSE (AUTOMATED) 2020-11-13 14:44:00 Jonny Eden Subramanian [facility] BASIC METABOLIC PANEL 2020-11-13 13:51:00 Adi Tastaldi, [facility] [place] (NA, K, CL, CO2, GLUCOSE, [facility] BUN, CREATININE, CA) CBC WITHOUT DIFF 2020-11-13 13:51:00 Adi Tastaldi, [facility] BASIC METABOLIC PANEL 2020-11-13 13:51:00 Adi Tastaldi, [facility] [place] (NA, K, CL, CO2, GLUCOSE, [facility] BUN, CREATININE, CA) CBC WITHOUT DIFF 2020-11-13 13:51:00 Adi Tastaldi, [facility] BASIC METABOLIC PANEL 2020-11-13 13:51:00 Adi Tastaldi, [facility] (NA, K, CL, CO2, GLUCOSE, [facility] BUN, CREATININE, CA) CBC WITHOUT DIFF 2020-11-13 13:51:00 Adi Watts, [facility] POCT GLUCOSE (AUTOMATED) 2020-11-13 12:56:00 Eden Fuller [facility] of [facility] POCT GLUCOSE (AUTOMATED) 2020-11-13 12:56:00 Eden Fuller Uni vers[facility] of [facility] POCT GLUCOSE (AUTOMATED) 2020-11-13 12:56:00 Eden Fuller Uni [facility] POCT GLUCOSE (AUTOMATED) 2020-11-13 09:15:00 Eden Fuller Marilynn versity of [facility] POCT GLUCOSE (AUTOMATED) 2020-11-13 09:15:00 Eden Fuller Marilynn vers[facility] of [facility] POCT GLUCOSE (AUTOMATED) 2020-11-13 09:15:00 Eden Fuller Marilynn [facility] of [facility] POCT GLUCOSE (AUTOMATED) 2020-11-13 05:07:00 Eden Fuller Marilynn vers[facility] of [facility] POCT GLUCOSE (AUTOMATED) 2020-11-13 05:07:00 Eden Fuller Marilynn versity of [facility] POCT GLUCOSE (AUTOMATED) 2020-11-13 05:07:00 Eden Fuller Marilynn vers[facility] of [facility] POCT GLUCOSE (AUTOMATED) 2020-11-13 01:07:00 Eden Fuller Marilynn versity of [facility] POCT GLUCOSE (AUTOMATED) 2020-11-13 01:07:00 Eden Fuller Uni [facility] POCT GLUCOSE (AUTOMATED) 2020-11-13 01:07:00 Eden Fuller Uni [facility] POCT GLUCOSE (AUTOMATED) 2020-11-12 21:25:00 Eden Fuller [facility] POCT GLUCOSE (AUTOMATED) 2020-11-12 21:25:00 Eden Fuller [facility] POCT GLUCOSE (AUTOMATED) 2020-11-12 21:25:00 Eden Fuller [facility] POCT GLUCOSE (AUTOMATED) 2020-11-12 17:10:00 Eden Fuller of [facility] POCT GLUCOSE (AUTOMATED) 2020-11-12 17:10:00 Eden Fuller [facility] of [facility] POCT GLUCOSE (AUTOMATED) 2020-11-12 17:10:00 Eden Fuller [facility] POCT GLUCOSE (AUTOMATED) 2020-11-12 17:10:00 Eden Fuller [facility] POCT GLUCOSE (AUTOMATED) 2020-11-12 12:38:00 Eden Fuller [facility] POCT GLUCOSE (AUTOMATED) 2020-11-12 12:38:00 Eden Fuller [facility] POCT GLUCOSE (AUTOMATED) 2020-11-12 12:38:00 Eden Fuller [facility] POCT GLUCOSE (AUTOMATED) 2020-11-12 12:38:00 [facility] PANEL 2020-11-12 09:27:00 Adi Tastaldi, [facility] [place] (NA, K, CL, CO2, GLUCOSE, [facility] BUN, CREATININE, CA) CBC WITHOUT DIFF 2020-11-12 09:27:00 Adi Tastaldi, [facility] BASIC METABOLIC PANEL 2020-11-12 09:27:00 Adi Tastaldi, [facility] [place] (NA, K, CL, CO2, GLUCOSE, [facility] BUN, CREATININE, CA) CBC WITHOUT DIFF 2020-11-12 09:27:00 Adi Tastaldi, [facility] BASIC METABOLIC PANEL 2020-11-12 09:27:00 Adi Tastaldi, [facility] [place] (NA, K, CL, CO2, GLUCOSE, [facility] BUN, CREATININE, CA) CBC WITHOUT DIFF 2020-11-12 09:27:00 Adi Tastaldi, [facility] BASIC METABOLIC PANEL 2020-11-12 09:27:00 Adi Tastaldi, [facility] [place] (NA, K, CL, CO2, GLUCOSE, [facility] BUN, CREATININE, CA) CBC WITHOUT DIFF 2020-11-12 09:27:00 Adi Watts [facility] POCT GLUCOSE (AUTOMATED) 2020-11-12 09:26:00 Eden Fuller [facility] POCT GLUCOSE (AUTOMATED) 2020-11-12 09:26:00 Fuller, Eden Marilynn versity of [facility] POCT GLUCOSE (AUTOMATED) 2020-11-12 09:26:00 Fuller, Eden Uni [facility] of [facility] POCT GLUCOSE (AUTOMATED) 2020-11-12 09:26:00 Fuller, Eden Uni [facility] POCT GLUCOSE (AUTOMATED) 2020-11-12 05:04:00 Fuller, Eden [facility] POCT GLUCOSE (AUTOMATED) 2020-11-12 05:04:00 Eden Fuller Marilynn vers[facility] of [facility] POCT GLUCOSE (AUTOMATED) 2020-11-12 05:04:00 Eden Fuller [facility] POCT GLUCOSE (AUTOMATED) 2020-11-12 05:04:00 Eden Fuller [facility] POCT GLUCOSE (AUTOMATED) 2020-11-12 00:54:00 Eden Fuller Marilynn versity of [facility] POCT GLUCOSE (AUTOMATED) 2020-11-12 00:54:00 Eden Fuller [facility] POCT GLUCOSE (AUTOMATED) 2020-11-12 00:54:00 Eden Fuller Marilynn [facility] of [facility] POCT GLUCOSE (AUTOMATED) 2020-11-12 00:54:00 Eden Fuller [facility] POCT GLUCOSE (AUTOMATED) 2020-11-11 20:40:00 Eden Fuller [facility] POCT GLUCOSE (AUTOMATED) 2020-11-11 20:40:00 Eden Fuller [facility] POCT GLUCOSE (AUTOMATED) 2020-11-11 20:40:00 Eden Fuller [facility] POCT GLUCOSE (AUTOMATED) 2020-11-11 20:40:00 Eden Fullerity [facility] ASPIRATE OR ABSCESS 2020-11-11 17:58:00 Fuller, Eden [facility] CULTURE(AEROBIC/ANAEROBIC Medica l Branch ) ASPIRATE OR ABSCESS 2020-11-11 17:58:00 Eden Fuller [facility] CULTURE(AEROBIC/ANAEROBIC Medica l Branch ) ASPIRATE OR ABSCESS 2020-11-11 17:58:00 Eden Fuller [facility] CULTURE(AEROBIC/ANAEROBIC Medica l Branch ) ASPIRATE OR ABSCESS 2020-11-11 17:58:00 Eden Fuller [facility] CULTURE(AEROBIC/ANAEROBIC Medica l Branch ) DEBRIDEMENT LOWER 2020-11-11 16:59:00 Eden Fuller [facility] EXTREMITY [facility] DEBRIDEMENT LOWER 2020-11-11 16:59:00 Eden Fuller [facility] POCT GLUCOSE (AUTOMATED) 2020-11-11 16:37:00 Eden Fuller [facility] POCT GLUCOSE (AUTOMATED) 2020-11-11 16:37:00 Eden Fuller [facility] POCT GLUCOSE (AUTOMATED) 2020-11-11 16:37:00 Eden Fuller [facility] POCT GLUCOSE (AUTOMATED) 2020-11-11 16:37:00 Eden Fuller [facility] COVID-19 (ID NOW RAPID 2020-11-11 16:16:00 [facility] LAB ONLY COVID 2020-11-11 16:16:00 Adi Tastaldi, [facility] INTERPRETATION [facility] COVID-19 (ID NOW RAPID 2020-11-11 16:16:00 Adi Tastaldi, [facility] TESTING) [facility] LAB ONLY COVID 2020-11-11 16:16:00 Adi Tastaldi, [facility] INTERPRETATION [facility] Branch COVID-19 (ID NOW RAPID 2020-11-11 16:16:00 Adi Tastaldi, [facility] TESTING) [facility] LAB ONLY COVID 2020-11-11 16:16:00 Adi Tastaldi, [facility] INTERPRETATION [facility] COVID-19 (ID NOW RAPID 2020-11-11 16:16:00 Adi Watts [facility] LAB ONLY COVID 2020-11-11 16:16:00 Adi Watts, [facility] HB ABO GROUPING 2020-11-11 16:15:00 Adi Watts, [facility] HB ABO GROUPING 2020-11-11 16:15:00 Adi Tasvitalydi, [facility] HB ABO GROUPING 2020-11-11 16:15:00 Adi Tastaldi, [facility] HB ABO GROUPING 2020-11-11 16:15:00 Adi Watts, [facility] POCT GLUCOSE (AUTOMATED) 2020-11-11 12:43:00 Eden Fuller [facility] POCT GLUCOSE (AUTOMATED) 2020-11-11 12:43:00 Eden Fuller [facility] of [facility] POCT GLUCOSE (AUTOMATED) 2020-11-11 12:43:00 Eden Fuller [facility] of [facility] POCT GLUCOSE (AUTOMATED) 2020-11-11 12:43:00 Eden Fuller versity of [facility] POCT GLUCOSE (AUTOMATED) 2020-11-11 09:14:00 Eden Fuller versity of [facility] POCT GLUCOSE (AUTOMATED) 2020-11-11 09:14:00 Eden Fuller versity of [facility] POCT GLUCOSE (AUTOMATED) 2020-11-11 09:14:00 Eden [facility] [place] [facility] POCT GLUCOSE (AUTOMATED) 2020-11-11 09:14:00 Eden Fuller versity of [facility] POCT GLUCOSE (AUTOMATED) 2020-11-11 06:44:00 Eden Fuller [facility] [place] [facility] POCT GLUCOSE (AUTOMATED) 2020-11-11 06:44:00 Eden Fuller versity of [facility] POCT GLUCOSE (AUTOMATED) 2020-11-11 06:44:00 Eden Fuller versity of [facility] POCT GLUCOSE (AUTOMATED) 2020-11-11 06:44:00 Fuller, Eden [facility] [place] [facility] POCT GLUCOSE (AUTOMATED) 2020-11-11 02:58:00 Fuller, Eden [facility] [place] [facility] POCT GLUCOSE (AUTOMATED) 2020-11-11 02:58:00 Fuller, Eden [facility] [place] [facility] POCT GLUCOSE (AUTOMATED) 2020-11-11 02:58:00 Fuller, Eden [facility] [place] [facility] POCT GLUCOSE (AUTOMATED) 2020-11-11 02:58:00 Fuller, Eden [facility] [place] [facility] POCT GLUCOSE (AUTOMATED) 2020-11-10 22:21:00 Fuller, Eden [facility] [place] [facility] POCT GLUCOSE (AUTOMATED) 2020-11-10 22:21:00 Fuller, Eden [facility] [place] [facility] POCT GLUCOSE (AUTOMATED) 2020-11-10 22:21:00 Fuller, Eden Marilynn [facility] [place] [facility] POCT GLUCOSE (AUTOMATED) 2020-11-10 22:21:00 Fuller, Eden Mar[facility] [place] [facility] POCT GLUCOSE (AUTOMATED) 2020-11-10 22:00:00 Fuller, Eden [facility] [place] [facility] POCT GLUCOSE (AUTOMATED) 2020-11-10 22:00:00 Fuller, Eden [facility] [place] [facility] POCT GLUCOSE (AUTOMATED) 2020-11-10 22:00:00 Fuller, Eden [facility] [place] [facility] POCT GLUCOSE (AUTOMATED) 2020-11-10 22:00:00 Fuller, Eden Mar[facility] [place] [facility] POCT GLUCOSE (AUTOMATED) 2020-11-10 19:57:00 Fuller, Eden [facility] [place] [facility] POCT GLUCOSE (AUTOMATED) 2020-11-10 19:57:00 Fuller, Eden [facility] [place] [facility] POCT GLUCOSE (AUTOMATED) 2020-11-10 19:57:00 Fuller, Eden [facility] [place] [facility] POCT GLUCOSE (AUTOMATED) 2020-11-10 19:57:00 Fuller, Eden [facility] [place] [facility] POCT GLUCOSE (AUTOMATED) 2020-11-10 15:01:00 Fuller, Eden [facility] [place] [facility] POCT GLUCOSE (AUTOMATED) 2020-11-10 15:01:00 Eden Fuller [facility] POCT GLUCOSE (AUTOMATED) 2020-11-10 15:01:00 Eden Fuller [facility] POCT GLUCOSE (AUTOMATED) 2020-11-10 15:01:00 [facility] 2020-11-10 13:24:00 [facility] (AUTOMATED) 2020-11-10 13:24:00 [facility] (AUTOMATED) 2020-11-10 13:24:00 [facility] (AUTOMATED) 2020-11-10 13:24:00 Eden Fuller [facility] PHOSPHORUS 2020-11-10 11:46:00 Adi Watts, [facility] MAGNESIUM 2020-11-10 11:46:00 Adi Watts, [facility] BASIC METABOLIC PANEL 2020-11-10 11:46:00 Adi Watts, [facility] [place] (NA, K, CL, CO2, GLUCOSE, [facility] BUN, CREATININE, CA) CBC WITHOUT DIFF 2020-11-10 11:46:00 Adi Watts, [facility] PHOSPHORUS 2020-11-10 11:46:00 Adi Watts, [facility] MAGNESIUM 2020-11-10 11:46:00 Adi Mac, [facility] BASIC METABOLIC PANEL 2020-11-10 11:46:00 Adi Watts, [facility] [place] (NA, K, CL, CO2, GLUCOSE, [facility] BUN, CREATININE, CA) CBC WITHOUT DIFF 2020-11-10 11:46:00 Adi Watts, [facility] PHOSPHORUS 2020-11-10 11:46:00 Adi Watts, [facility] MAGNESIUM 2020-11-10 11:46:00 Adi Watts, [facility] BASIC METABOLIC PANEL 2020-11-10 11:46:00 Adi Watts, [facility] [place] (NA, K, CL, CO2, GLUCOSE, [facility] BUN, CREATININE, CA) CBC WITHOUT DIFF 2020-11-10 11:46:00 Adi Kalanimartha, [facility] PHOSPHORUS 2020-11-10 11:46:00 Adi Tasmartha, [facility] MAGNESIUM 2020-11-10 11:46:00 Adi Tasmartha, [facility] BASIC METABOLIC PANEL 2020-11-10 11:46:00 Adi Watts, [facility] [place] (NA, K, CL, CO2, GLUCOSE, [facility] BUN, CREATININE, CA) CBC WITHOUT DIFF 2020-11-10 11:46:00 Adi Watts, [facility] POCT GLUCOSE (AUTOMATED) 2020-11-10 10:16:00 [facility] POCT GLUCOSE (AUTOMATED) 2020-11-10 10:16:00 Eden Fuller [facility] POCT GLUCOSE (AUTOMATED) 2020-11-10 10:16:00 Eden Fuller [facility] POCT GLUCOSE (AUTOMATED) 2020-11-10 10:16:00 Eden Fuller [facility] POCT GLUCOSE (AUTOMATED) 2020-11-10 09:01:00 Eden Fuller [facility] POCT GLUCOSE (AUTOMATED) 2020-11-10 09:01:00 Eden Fuller [facility] POCT GLUCOSE (AUTOMATED) 2020-11-10 09:01:00 Eden Fuller [facility] POCT GLUCOSE (AUTOMATED) 2020-11-10 09:01:00 Eden Fuller [facility] POCT GLUCOSE (AUTOMATED) 2020-11-10 07:51:00 Eden Fuller [facility] POCT GLUCOSE (AUTOMATED) 2020-11-10 07:51:00 [facility] [place] [facility] POCT GLUCOSE (AUTOMATED) 2020-11-10 07:51:00 Fuller, [facility] [place] [facility] POCT GLUCOSE (AUTOMATED) 2020-11-10 07:51:00 Fuller, Eden [facility] [place] [facility] POCT GLUCOSE (AUTOMATED) 2020-11-10 07:04:00 Fuller, [facility] [place] [facility] POCT GLUCOSE (AUTOMATED) 2020-11-10 07:04:00 Fuller, Eden [facility] [place] [facility] POCT GLUCOSE (AUTOMATED) 2020-11-10 07:04:00 Fuller, Eden [facility] [place] [facility] POCT GLUCOSE (AUTOMATED) 2020-11-10 07:04:00 Fuller, [facility] [place] [facility] POCT GLUCOSE (AUTOMATED) 2020-11-10 06:04:00 Fuller, Eden [facility] [place] [facility] POCT GLUCOSE (AUTOMATED) 2020-11-10 06:04:00 Fuller, Eden [facility] [place] [facility] POCT GLUCOSE (AUTOMATED) 2020-11-10 06:04:00 Fuller, [facility] [place] [facility] POCT GLUCOSE (AUTOMATED) 2020-11-10 06:04:00 Fuller, Eden [facility] [place] [facility] POCT GLUCOSE (AUTOMATED) 2020-11-10 04:51:00 Fuller, Eden [facility] [place] [facility] POCT GLUCOSE (AUTOMATED) 2020-11-10 04:51:00 Fuller, [facility] [place] [facility] POCT GLUCOSE (AUTOMATED) 2020-11-10 04:51:00 Fuller, [facility] [place] [facility] POCT GLUCOSE (AUTOMATED) 2020-11-10 04:51:00 Fuller, [facility] [place] [facility] POCT GLUCOSE (AUTOMATED) 2020-11-10 03:55:00 Fuller, [facility] [place] [facility] POCT GLUCOSE (AUTOMATED) 2020-11-10 03:55:00 Fuller, [facility] [place] [facility] POCT GLUCOSE (AUTOMATED) 2020-11-10 03:55:00 Fuller, [facility] [place] [facility] POCT GLUCOSE (AUTOMATED) 2020-11-10 03:55:00 Fuller, [facility] [place] [facility] POCT GLUCOSE (AUTOMATED) 2020-11-10 02:29:00 Fuller, Eden [facility] [place] [facility] POCT GLUCOSE (AUTOMATED) 2020-11-10 02:29:00 Fuller, Eden [facility] [place] [facility] POCT GLUCOSE (AUTOMATED) 2020-11-10 02:29:00 Fuller, Eden [facility] [place] [facility] POCT GLUCOSE (AUTOMATED) 2020-11-10 02:29:00 Fuller, Eden [facility] [place] [facility] POCT GLUCOSE (AUTOMATED) 2020-11-10 01:54:00 Fuller, [facility] [place] [facility] POCT GLUCOSE (AUTOMATED) 2020-11-10 01:54:00 Fuller, Eden [facility] [place] [facility] POCT GLUCOSE (AUTOMATED) 2020-11-10 01:54:00 Fuller, Eden [facility] [place] [facility] POCT GLUCOSE (AUTOMATED) 2020-11-10 01:54:00 Fuller, Eden [facility] [place] [facility] POCT GLUCOSE (AUTOMATED) 2020-11-09 22:54:00 Fuller, Eden [facility] [place] [facility] POCT GLUCOSE (AUTOMATED) 2020-11-09 22:54:00 Fuller, [facility] [place] [facility] POCT GLUCOSE (AUTOMATED) 2020-11-09 22:54:00 Fuller, Eden [facility] [place] [facility] POCT GLUCOSE (AUTOMATED) 2020-11-09 22:54:00 Eden Fuller [facility] [place] [facility] POCT GLUCOSE (AUTOMATED) 2020-11-09 21:49:00 Piter Fullerrommel [facility] [place] [facility] POCT GLUCOSE (AUTOMATED) 2020-11-09 21:49:00 Fuller, Eden [facility] [place] [facility] POCT GLUCOSE (AUTOMATED) 2020-11-09 21:49:00 Eden Fuller [facility] [place] [facility] POCT GLUCOSE (AUTOMATED) 2020-11-09 21:49:00 Eden Fuller [facility] [place] [facility] POCT GLUCOSE (AUTOMATED) 2020-11-09 21:09:00 Fuller, Eden [facility] [place] [facility] POCT GLUCOSE (AUTOMATED) 2020-11-09 21:09:00 Fuller, Eden [facility] [place] [facility] POCT GLUCOSE (AUTOMATED) 2020-11-09 21:09:00 Fuller, Eden [facility] [place] [facility] POCT GLUCOSE (AUTOMATED) 2020-11-09 21:09:00 Fuller, Eden [facility] [place] [facility] POCT GLUCOSE (AUTOMATED) 2020-11-09 20:08:00 Fuller, Eden [facility] [place] [facility] POCT GLUCOSE (AUTOMATED) 2020-11-09 20:08:00 Fuller, Eden [facility] [place] [facility] POCT GLUCOSE (AUTOMATED) 2020-11-09 20:08:00 Fuller, Eden [facility] [place] [facility] POCT GLUCOSE (AUTOMATED) 2020-11-09 20:08:00 Fuller, Eden [facility] [place] [facility] POCT GLUCOSE (AUTOMATED) 2020-11-09 19:10:00 Fuller, Eden [facility] [place] [facility] POCT GLUCOSE (AUTOMATED) 2020-11-09 19:10:00 Fuller, Eden [facility] [place] [facility] POCT GLUCOSE (AUTOMATED) 2020-11-09 19:10:00 Fuller, Eden [facility] [place] [facility] POCT GLUCOSE (AUTOMATED) 2020-11-09 19:10:00 Fuller, Eden [facility] [place] [facility] POCT GLUCOSE (AUTOMATED) 2020-11-09 19:10:00 Fuller, Eden [facility] [place] [facility] POCT GLUCOSE (AUTOMATED) 2020-11-09 18:11:00 Fuller, Eden [facility] [place] [facility] POCT GLUCOSE (AUTOMATED) 2020-11-09 18:11:00 Fuller, Eden [facility] [place] [facility] POCT GLUCOSE (AUTOMATED) 2020-11-09 18:11:00 Fuller, Eden [facility] [place] [facility] POCT GLUCOSE (AUTOMATED) 2020-11-09 18:11:00 Fuller, Eden [facility] [place] [facility] POCT GLUCOSE (AUTOMATED) 2020-11-09 18:11:00 Fuller, Eden [facility] [place] [facility] POCT GLUCOSE (AUTOMATED) 2020-11-09 17:09:00 Fuller, Eden [facility] [place] [facility] POCT GLUCOSE (AUTOMATED) 2020-11-09 17:09:00 Fuller, Eden [facility] [place] [facility] POCT GLUCOSE (AUTOMATED) 2020-11-09 17:09:00 Fuller, Eden [facility] [place] [facility] POCT GLUCOSE (AUTOMATED) 2020-11-09 17:09:00 Fuller, Eden [facility] [place] [facility] POCT GLUCOSE (AUTOMATED) 2020-11-09 17:09:00 Fuller, Eden [facility] [place] [facility] POCT GLUCOSE (AUTOMATED) 2020-11-09 16:07:00 Fuller, Eden [facility] [place] [facility] POCT GLUCOSE (AUTOMATED) 2020-11-09 16:07:00 Fuller, Eden [facility] [place] [facility] POCT GLUCOSE (AUTOMATED) 2020-11-09 16:07:00 Fuller, Eden [facility] [place] [facility] POCT GLUCOSE (AUTOMATED) 2020-11-09 16:07:00 Fuller, Eden [facility] [place] [facility] POCT GLUCOSE (AUTOMATED) 2020-11-09 16:07:00 Fuller, Eden [facility] [place] [facility] POCT GLUCOSE (AUTOMATED) 2020-11-09 15:08:00 Fuller, Eden [facility] [place] [facility] POCT GLUCOSE (AUTOMATED) 2020-11-09 15:08:00 Fuller, Eden [facility] [place] [facility] POCT GLUCOSE (AUTOMATED) 2020-11-09 15:08:00 Fuller, Eden [facility] [place] [facility] POCT GLUCOSE (AUTOMATED) 2020-11-09 15:08:00 Fuller, Eden [facility] [place] [facility] POCT GLUCOSE (AUTOMATED) 2020-11-09 15:08:00 Fuller, Eden [facility] [place] [facility] POCT GLUCOSE (AUTOMATED) 2020-11-09 11:59:00 Fuller, Eden [facility] [place] [facility] POCT GLUCOSE (AUTOMATED) 2020-11-09 11:59:00 Fuller, Eden [facility] [place] [facility] POCT GLUCOSE (AUTOMATED) 2020-11-09 11:59:00 Fuller, Eden [facility] [place] [facility] POCT GLUCOSE (AUTOMATED) 2020-11-09 11:59:00 Fuller, Eden [facility] [place] [facility] POCT GLUCOSE (AUTOMATED) 2020-11-09 11:59:00 Eden Fuller [facility] POCT GLUCOSE (AUTOMATED) 2020-11-09 10:06:00 [facility]ATED) 2020-11-09 10:06:00 Eden [facility] PO[facility]UCOSE (AUTOMATED) 2020-11-09 10:06:00 Eden [facility] PO[facility]UCOSE (AUTOMATED) 2020-11-09 10:06:00 Eden [facility] PO[facility]COSE (AUTOMATED) 2020-11-09 10:06:00 Jonny Eden Subramanian [facility] PHOSPHORUS 2020-11-09 09:44:00 Melba Lopez [facility] MAGNESIUM 2020-11-09 09:44:00 Melba Lopez [facility] BASIC METABOLIC PANEL 2020-11-09 09:44:00 Melba Lopez [facility] (NA, K, CL, CO2, GLUCOSE, Medica l Branch BUN, CREATININE, CA) CBC WITH DIFF 2020-11-09 09:44:00 Melba Lopez [facility] PHOSPHORUS 2020-11-09 09:44:00 Melba Lopez [facility] MAGNESIUM 2020-11-09 09:44:00 Melba Lopez [facility] BASIC METABOLIC PANEL 2020-11-09 09:44:00 Melba Lopez [facility] (NA, K, CL, CO2, GLUCOSE, Medica [facility] Branch BUN, CREATININE, CA) CBC WITH DIFF 2020-11-09 09:44:00 Melba Lopez [facility] PHOSPHORUS 2020-11-09 09:44:00 Melba Lopez [facility] MAGNESIUM 2020-11-09 09:44:00 Melba Lopez [facility] BASIC METABOLIC PANEL 2020-11-09 09:44:[address] [facility] (NA, K, CL, CO2, GLUCOSE, Medica l Branch BUN, CREATININE, CA) CBC WITH DIFF 2020-11-09 09:44:00 YazminshenaMelba mauricio [facility] PHOSPHORUS 2020-11-09 09:44:00 YazminshenaMelba mauricio [facility] MAGNESIUM 2020-11-09 09:44:00 YazminshenaMelba mauricio [facility] BASIC METABOLIC PANEL 2020-11-09 09:44:00 Melba Lopez [facility] (NA, K, CL, CO2, GLUCOSE, Medica [facility] Branch BUN, CREATININE, CA) CBC WITH DIFF 2020-11-09 09:44:00 YazmincorbinMelba [facility] PHOSPHORUS 2020-11-09 09:44:00 John Melba Reynoso [facility] MAGNESIUM 2020-11-09 09:44:00 Yazmincorbin Melba Reynoso [facility] BASIC METABOLIC PANEL 2020-11-09 09:44:00 Melba Lopez [facility] (NA, K, CL, CO2, GLUCOSE, Medica l Branch BUN, CREATININE, CA) CBC WITH DIFF 2020-11-09 09:44:00 Melba Lopez [facility] POCT GLUCOSE (AUTOMATED) 2020-11-09 07:57:00 [facility] (AUTOMATED) 2020-11-09 07:57:00 Eden [facility] PO[facility]UCOSE (AUTOMATED) 2020-11-09 07:57:00 Eden [facility] PO[facility]UCOSE (AUTOMATED) 2020-11-09 07:57:00 Eden Fuller versity of [facility] POCT GLUCOSE (AUTOMATED) 2020-11-09 07:57:00 [facility]SE (AUTOMATED) 2020-11-09 06:58:00 Eden Fuller versity of [facility] POCT GLUCOSE (AUTOMATED) 2020-11-09 06:58:00 Eden Fuller versity [facility] POCT GLUCOSE (AUTOMATED) 2020-11-09 06:58:00 Eden Fuller versity [facility] POCT GLUCOSE (AUTOMATED) 2020-11-09 06:58:00 Fuller, Eden [facility] [place] [facility] POCT GLUCOSE (AUTOMATED) 2020-11-09 06:58:00 Fuller, Eden [facility] [place] [facility] POCT GLUCOSE (AUTOMATED) 2020-11-09 05:46:00 Fuller, Eden [facility] [place] [facility] POCT GLUCOSE (AUTOMATED) 2020-11-09 05:46:00 Fuller, Eden [facility] [place] [facility] POCT GLUCOSE (AUTOMATED) 2020-11-09 05:46:00 Fuller, Eden [facility] [place] [facility] POCT GLUCOSE (AUTOMATED) 2020-11-09 05:46:00 Fuller, Eden [facility] [place] [facility] POCT GLUCOSE (AUTOMATED) 2020-11-09 05:46:00 Fuller, Eden [facility] [place] [facility] POCT GLUCOSE (AUTOMATED) 2020-11-09 04:58:00 Fuller, Eden [facility] [place] [facility] POCT GLUCOSE (AUTOMATED) 2020-11-09 04:58:00 Fuller, Eden [facility] [place] [facility] POCT GLUCOSE (AUTOMATED) 2020-11-09 04:58:00 Fuller, Eden [facility] [place] [facility] POCT GLUCOSE (AUTOMATED) 2020-11-09 04:58:00 Fuller, Eden [facility] [place] [facility] POCT GLUCOSE (AUTOMATED) 2020-11-09 04:58:00 Fuller, Eden [facility] [place] [facility] POCT GLUCOSE (AUTOMATED) 2020-11-09 03:56:00 Fuller, Eden [facility] [place] [facility] POCT GLUCOSE (AUTOMATED) 2020-11-09 03:56:00 Fuller, Eden [facility] [place] [facility] POCT GLUCOSE (AUTOMATED) 2020-11-09 03:56:00 Fuller, Eden [facility] [place] [facility] POCT GLUCOSE (AUTOMATED) 2020-11-09 03:56:00 Fuller, Eden [facility] [place] [facility] POCT GLUCOSE (AUTOMATED) 2020-11-09 03:56:00 Fuller, Eden [facility] [place] [facility] POCT GLUCOSE (AUTOMATED) 2020-11-09 02:43:00 Fuller, Eden [facility] [place] [facility] POCT GLUCOSE (AUTOMATED) 2020-11-09 02:43:00 Fuller, Eden [facility] [place] [facility] POCT GLUCOSE (AUTOMATED) 2020-11-09 02:43:00 Fuller, Eden [facility] [place] [facility] POCT GLUCOSE (AUTOMATED) 2020-11-09 02:43:00 Fuller, Eden [facility] [place] [facility] POCT GLUCOSE (AUTOMATED) 2020-11-09 02:43:00 Fuller, Eden [facility] [place] [facility] POCT GLUCOSE (AUTOMATED) 2020-11-09 01:36:00 Fuller, Eden [facility] [place] [facility] POCT GLUCOSE (AUTOMATED) 2020-11-09 01:36:00 Fuller, Eden [facility] [place] [facility] POCT GLUCOSE (AUTOMATED) 2020-11-09 01:36:00 Fuller, Eden [facility] [place] [facility] POCT GLUCOSE (AUTOMATED) 2020-11-09 01:36:00 Fuller, Eden [facility] [place] [facility] POCT GLUCOSE (AUTOMATED) 2020-11-09 01:36:00 Fuller, Eden [facility] [place] [facility] POCT GLUCOSE (AUTOMATED) 2020-11-08 23:33:00 Fuller, Eden [facility] [place] [facility] POCT GLUCOSE (AUTOMATED) 2020-11-08 23:33:00 Fuller, Eden [facility] [place] [facility] POCT GLUCOSE (AUTOMATED) 2020-11-08 23:33:00 Fuller, Eden [facility] [place] [facility] POCT GLUCOSE (AUTOMATED) 2020-11-08 23:33:00 Fuller, Eden [facility] [place] [facility] POCT GLUCOSE (AUTOMATED) 2020-11-08 23:33:00 Fuller, Eden [facility] [place] [facility] POCT GLUCOSE (AUTOMATED) 2020-11-08 22:22:00 Fuller, Eden [facility] [place] [facility] POCT GLUCOSE (AUTOMATED) 2020-11-08 22:22:00 Fuller, Eden [facility] [place] [facility] POCT GLUCOSE (AUTOMATED) 2020-11-08 22:22:00 Fuller, Eden [facility] [place] [facility] POCT GLUCOSE (AUTOMATED) 2020-11-08 22:22:00 Fuller, Eden [facility] [place] [facility] POCT GLUCOSE (AUTOMATED) 2020-11-08 22:22:00 Eden Fuller [facility] [place] [facility] VALERIA MULTI LEVEL - BY 2020-11-08 20:42:51 Lumpkin, Kalina [facility] [place] [facility] VALERIA MULTI LEVEL - BY 2020-11-08 20:42:51 Lumpkin, Kalina [facility] [place] [facility] VALERIA MULTI LEVEL - BY 2020-11-08 20:42:51 Lumpkin, Kalina [facility] [place] [facility] VALERIA MULTI LEVEL - BY 2020-11-08 20:42:51 Lumpkin, Kalina [facility] [place] [facility] VALERIA MULTI LEVEL - BY 2020-11-08 20:42:51 Lumpkin, Kalina [facility] [place] [facility] POCT GLUCOSE (AUTOMATED) 2020-11-08 18:53:00 Jeronimo Ha versity of [facility] POCT GLUCOSE (AUTOMATED) 2020-11-08 18:53:00 Jeronimo Ha [facility] POCT GLUCOSE (AUTOMATED) 2020-11-08 18:53:00 Jeronimo Ha [facility] POCT GLUCOSE (AUTOMATED) 2020-11-08 18:53:00 Jeronimo Ha [facility] POCT GLUCOSE (AUTOMATED) 2020-11-08 18:53:00 Jeronimo Ha [facility] POCT GLUCOSE (AUTOMATED) 2020-11-08 14:57:00 Jeronimo Ha [facility] POCT GLUCOSE (AUTOMATED) 2020-11-08 14:57:00 Jeronimo Ha [facility] POCT GLUCOSE (AUTOMATED) 2020-11-08 14:57:00 Jeronimo Ha [facility] POCT GLUCOSE (AUTOMATED) 2020-11-08 14:57:00 Jeronimo Ha [facility] POCT GLUCOSE (AUTOMATED) 2020-11-08 14:57:00 Jeronimo Ha [facility] FUNGUS (ROUTINE) CULTURE 2020-11-08 12:52:35 Eden Fuller [facility] TISSUE 2020-11-08 12:52:35 Jonny [facility] CULTURE(AEROBIC/ANAEROBIC Medica l Branch ) FUNGUS (ROUTINE) CULTURE 2020-11-08 12:52:35 Eden Fuller [facility] TISSUE 2020-11-08 12:52:35 Eden Fuller [facility] CULTURE(AEROBIC/ANAEROBIC Medica l Branch ) FUNGUS (ROUTINE) CULTURE 2020-11-08 12:52:35 Eden Fuller [facility] TISSUE 2020-11-08 12:52:35 Jonny [facility] CULTURE(AEROBIC/ANAEROBIC Medica l Branch ) FUNGUS (ROUTINE) CULTURE 2020-11-08 12:52:35 Eden Fuller [facility] TISSUE 2020-11-08 12:52:[facility]EROBIC [facility] ) FUNGUS (ROUTINE) CULTURE 2020-11-08 12:52:35 Eden Fuller [facility] TISSUE 2020-11-08 12:52:35 Jonny [facility] CULTURE(AEROBIC/ANAEROBIC Medica l Branch ) SURGICAL PATHOLOGY EXAM 2020-11-08 12:45:00 Jonyn [facility] SURGICAL PATHOLOGY EXAM 2020-11-08 12:45:00 Jonny [facility] SURGICAL PATHOLOGY EXAM 2020-11-08 12:45:00 Jonny [facility] SURGICAL PATHOLOGY EXAM 2020-11-08 12:45:00 Jonny [facility] INCISION AND DRAINAGE 2020-11-08 11:56:00 Eden Fuller [facility] [place] TOE AMPUTATION 2020-11-08 11:56:00 Jonny Eden [facility] INCISION AND DRAINAGE 2020-11-08 11:56:00 Eden Fuller [facility] [place] TOE AMPUTATION 2020-11-08 11:56:00 Fuller, [facility] POCT GLUCOSE (AUTOMATED) 2020-11-08 08:54:00 Donovan Has Uni [facility] POCT GLUCOSE (AUTOMATED) 2020-11-08 08:54:00 Dilcia Jeronimo Uni versity of [facility] POCT GLUCOSE (AUTOMATED) 2020-11-08 08:54:00 Donovan Has [facility] POCT GLUCOSE (AUTOMATED) 2020-11-08 08:54:00 Donovan Has [facility] POCT GLUCOSE (AUTOMATED) 2020-11-08 08:54:00 Jeronimo Ha [facility] POCT GLUCOSE (AUTOMATED) 2020-11-08 04:57:00 Jeronimo Ha [facility] POCT GLUCOSE (AUTOMATED) 2020-11-08 04:57:00 Jeronimo Ha [facility] POCT GLUCOSE (AUTOMATED) 2020-11-08 04:57:00 Jeronimo Ha [facility] POCT GLUCOSE (AUTOMATED) 2020-11-08 04:57:00 Jeronimo Ha [facility] POCT GLUCOSE (AUTOMATED) 2020-11-08 04:57:00 Donovan Has [facility] POCT GLUCOSE (AUTOMATED) 2020-11-08 01:18:00 Eden Fuller versity of [facility] POCT GLUCOSE (AUTOMATED) 2020-11-08 01:18:00 Eden Fuller vers[facility] of [facility] POCT GLUCOSE (AUTOMATED) 2020-11-08 01:18:00 Eden Fuller versity of [facility] POCT GLUCOSE (AUTOMATED) 2020-11-08 01:18:00 Eden Fuller [facility] [place] [facility] POCT GLUCOSE (AUTOMATED) 2020-11-08 01:18:00 Eden Fuller versity of [facility] POCT GLUCOSE (AUTOMATED) 2020-11-07 22:42:00 Eden Fuller [facility] POCT GLUCOSE (AUTOMATED) 2020-11-07 22:42:00 Fuller, Eden Subramanian [facility] POCT GLUCOSE (AUTOMATED) 2020-11-07 22:42:00 Fuller, Eden [facility] POCT GLUCOSE (AUTOMATED) 2020-11-07 22:42:00 Fuller, Eden [facility] POCT GLUCOSE (AUTOMATED) 2020-11-07 22:42:00 Fuller, Eden [facility] POCT GLUCOSE (AUTOMATED) 2020-11-07 22:39:00 Fuller, Eden [facility] POCT GLUCOSE (AUTOMATED) 2020-11-07 22:39:00 Fuller, Eden [facility] POCT GLUCOSE (AUTOMATED) 2020-11-07 22:39:00 Fuller, Eden [facility] POCT GLUCOSE (AUTOMATED) 2020-11-07 22:39:00 Fuller, Eden [facility]ram[facility] POCT GLUCOSE (AUTOMATED) 2020-11-07 22:39:00 Fuller, Eden [facility] POCT GLUCOSE (AUTOMATED) 2020-11-07 16:59:00 Fuller, Eden [facility] POCT GLUCOSE (AUTOMATED) 2020-11-07 16:59:00 Fuller, Eden [facility] POCT GLUCOSE (AUTOMATED) 2020-11-07 16:59:00 Fuller, Eden [facility] POCT GLUCOSE (AUTOMATED) 2020-11-07 16:59:00 Fuller, Eden [facility] POCT GLUCOSE (AUTOMATED) 2020-11-07 16:59:00 Fuller, Eden [facility] POCT GLUCOSE (AUTOMATED) 2020-11-07 12:39:00 Fuller, Eden [facility] POCT GLUCOSE (AUTOMATED) 2020-11-07 12:39:00 Fuller, Eden [facility] POCT GLUCOSE (AUTOMATED) 2020-11-07 12:39:00 Fuller, Eden [facility] POCT GLUCOSE (AUTOMATED) 2020-11-07 12:39:00 Fuller, Eden [facility] POCT GLUCOSE (AUTOMATED) 2020-11-07 12:39:00 Eden Fuller Mar[facility]nn [facility] BASIC METABOLIC PANEL 2020-11-07 09:24:00 [place], [facility] (NA, K, CL, CO2, GLUCOSE, Medica l Branch BUN, CREATININE, CA) LIPID PANEL ([id number])(TOTAL 2020-11-07 09:24:00 Melba Lopez [facility] TRIGLY[facility], HDL) VANCOMYCIN TROUGH 2020-11-07 09:24:00 [place], [facility] CBC WITH DIFF 2020-11-07 09:24:00 [place], [facility] BASIC METABOLIC PANEL 2020-11-07 09:24:00 [place], [facility] (NA, K, CL, CO2, GLUCOSE, Medica l Branch BUN, CREATININE, CA) LIPID PANEL ([id number])(TOTAL 2020-11-07 09:24:00 Melba Lopez [facility] TRIGLYCERIDES, HDL) VANCOMYCIN TROUGH 2020-11-07 09:24:00 [place], [facility] CBC WITH DIFF 2020-11-07 09:24:00 [place], [facility] BASIC METABOLIC PANEL 2020-11-07 09:24:00 [place], [facility] (NA, K, CL, CO2, GLUCOSE, Medica l Branch BUN, CREATININE, CA) LIPID PANEL ([id number])(TOTAL 2020-11-07 09:24:00 eMlba Lopez [facility] TRIGLYCERIDES, HDL) VANCOMYCIN TROUGH 2020-11-07 09:24:00 [place], [facility] CBC WITH DIFF 2020-11-07 09:24:00 [place], [facility] BASIC METABOLIC PANEL 2020-11-07 09:24:00 [place], [facility] (NA, K, CL, CO2, GLUCOSE, Medica l Branch BUN, CREATININE, CA) LIPID PANEL ([id number])(TOTAL 2020-11-07 09:24:00 Melba Lopez Un [facility] TRIGLYCERIDES, HDL) VANCOMYCIN TROUGH 2020-11-07 09:24:00 [place], [facility] CBC WITH DIFF 2020-11-07 09:24:00 [place], [facility] BASIC METABOLIC PANEL 2020-11-07 09:24:00 [place], [facility] (NA, K, CL, CO2, GLUCOSE, Medica l Branch BUN, CREATININE, CA) LIPID PANEL ([id number])(TOTAL 2020-11-07 09:24:00 Melba Lopez [facility] TRIGLYCERIDES, HDL) VANCOMYCIN TROUGH 2020-11-07 09:24:00 [place], [facility] CBC WITH DIFF 2020-11-07 09:24:00 [place], [facility] POCT GLUCOSE (AUTOMATED) 2020-11-07 09:03:00 Eden Fuller [facility] POCT GLUCOSE (AUTOMATED) 2020-11-07 09:03:00 Eden Fuller [facility] POCT GLUCOSE (AUTOMATED) 2020-11-07 09:03:00 Eden Fuller [facility] POCT GLUCOSE (AUTOMATED) 2020-11-07 09:03:00 Eden Fuller [facility] POCT GLUCOSE (AUTOMATED) 2020-11-07 09:03:00 [facility]) 2020-11-07 05:04:00 Eden [facility]SE (AUTOMATED) 2020-11-07 05:04:00 Eden [facility] PO[facility]SE (AUTOMATED) 2020-11-07 05:04:00 Eden [facility]SE (AUTOMATED) 2020-11-07 05:04:00 Eden [facility]SE (AUTOMATED) 2020-11-07 05:04:00 Fuller, Eden [facility] POCT GLUCOSE (AUTOMATED) 2020-11-07 00:35:00 Fuller, Eden [facility] POCT GLUCOSE (AUTOMATED) 2020-11-07 00:35:00 Fuller, Eden [facility] POCT GLUCOSE (AUTOMATED) 2020-11-07 00:35:00 Fuller, Eden [facility] POCT GLUCOSE (AUTOMATED) 2020-11-07 00:35:00 Fuller, Eden [facility] POCT GLUCOSE (AUTOMATED) 2020-11-07 00:35:00 Fulelr, Eden [facility] POCT GLUCOSE (AUTOMATED) 2020-11-06 23:11:00 Fuller, Eden [facility] POCT GLUCOSE (AUTOMATED) 2020-11-06 23:11:00 Fuller, Eden [facility] POCT GLUCOSE (AUTOMATED) 2020-11-06 23:11:00 Fuller, Eden [facility] POCT GLUCOSE (AUTOMATED) 2020-11-06 23:11:00 Fuller, Eden [facility] POCT GLUCOSE (AUTOMATED) 2020-11-06 23:11:00 Fuller, Eden [facility] POCT GLUCOSE (AUTOMATED) 2020-11-06 22:43:00 Fuller, Eden [facility] POCT GLUCOSE (AUTOMATED) 2020-11-06 22:43:00 Fuller, Eden [facility] POCT GLUCOSE (AUTOMATED) 2020-11-06 22:43:00 Fuller, Eden [facility] POCT GLUCOSE (AUTOMATED) 2020-11-06 22:43:00 Fuller, Eden [facility] POCT GLUCOSE (AUTOMATED) 2020-11-06 22:43:00 Fuller, Eden [facility] POCT GLUCOSE (AUTOMATED) 2020-11-06 20:11:00 Fuller, Eden [facility] POCT GLUCOSE (AUTOMATED) 2020-11-06 20:11:00 Fuller, Eden [facility] POCT GLUCOSE (AUTOMATED) 2020-11-06 20:11:00 Eden Fuller [facility] POCT GLUCOSE (AUTOMATED) 2020-11-06 20:11:00 Eden Fuller [facility] of [facility] POCT GLUCOSE (AUTOMATED) 2020-11-06 20:11:00 Jonny Eden [facility] MR FOOT LEFT W WO 2020-11-06 18:46:17 [place], [facility] CONTRAST Medical Branch MR FOOT LEFT W WO 2020-11-06 18:46:17 [place], [facility] Medical Branch MR FOOT LEFT W WO 2020-11-06 18:46:17 [place], [facility] Medical Branch MR FOOT LEFT W WO 2020-11-06 18:46:17 [place], [facility] Medical Branch MR FOOT LEFT W WO 2020-11-06 18:46:17 [place], [facility] CONTR[facility] POCT GLUCOSE (AUTOMATED) 2020-11-06 16:19:00 Eden Fuller [facility] of [facility] POCT GLUCOSE (AUTOMATED) 2020-11-06 16:19:00 Eden Fuller [facility] of [facility] POCT GLUCOSE (AUTOMATED) 2020-11-06 16:19:00 Eden Fuller [facility] POCT GLUCOSE (AUTOMATED) 2020-11-06 16:19:00 Eden Fuller [facility] of [facility] POCT GLUCOSE (AUTOMATED) 2020-11-06 16:19:00 Eden Fuller [facility] of [facility] POCT GLUCOSE (AUTOMATED) 2020-11-06 14:53:00 Eden Fuller [facility] POCT GLUCOSE (AUTOMATED) 2020-11-06 14:53:00 Eden Fuller [facility] POCT GLUCOSE (AUTOMATED) 2020-11-06 14:53:00 Eden Fuller [facility] of [facility] POCT GLUCOSE (AUTOMATED) 2020-11-06 14:53:00 Eden Fuller [facility] POCT GLUCOSE (AUTOMATED) 2020-11-06 14:53:00 Eden Fuller [facility] BASIC METABOLIC PANEL 2020-11-06 14:02:00 [place] [facility] (NA, K, CL, CO2, GLUCOSE, Medica l Branch BUN, CREATININE, CA) CBC WITH DIFF 2020-11-06 14:02:00 [place], [facility] BASIC METABOLIC PANEL 2020-11-06 14:02:00 [place], [facility] (NA, K, CL, CO2, GLUCOSE, Medica l Branch BUN, CREATININE, CA) CBC WITH DIFF 2020-11-06 14:02:00 [place], [facility] BASIC METABOLIC PANEL 2020-11-06 14:02:00 [place] [facility] (NA, K, CL, CO2, GLUCOSE, Medica l Branch BUN, CREATININE, CA) CBC WITH DIFF 2020-11-06 14:02:00 [place] [facility] BASIC METABOLIC PANEL 2020-11-06 14:02:00 [place] [facility] (NA, K, CL, CO2, GLUCOSE, Medica l Branch BUN, CREATININE, CA) CBC WITH DIFF 2020-11-06 14:02:00 [place], [facility] BASIC METABOLIC PANEL 2020-11-06 14:02:00 [place], [facility] (NA, K, CL, CO2, GLUCOSE, Medica l Branch BUN, CREATININE, CA) CBC WITH DIFF 2020-11-06 14:02:00 [place], [facility] POCT GLUCOSE (AUTOMATED) 2020-11-06 14:00:00 Eden Fuller [facility] POCT GLUCOSE (AUTOMATED) 2020-11-06 14:00:00 Eden Fuller [facility] POCT GLUCOSE (AUTOMATED) 2020-11-06 14:00:00 Eden Fuller [facility] POCT GLUCOSE (AUTOMATED) 2020-11-06 14:00:00 [facility] POCT GLUCOSE (AUTOMATED) 2020-11-06 14:00:00 Fuller, Eden [facility] POCT GLUCOSE (AUTOMATED) 2020-11-06 12:08:00 Fuller, Eden [facility] POCT GLUCOSE (AUTOMATED) 2020-11-06 12:08:00 Fuller, Eden [facility] POCT GLUCOSE (AUTOMATED) 2020-11-06 12:08:00 Fuller, Eden [facility] POCT GLUCOSE (AUTOMATED) 2020-11-06 12:08:00 Fuller, Eden [facility] POCT GLUCOSE (AUTOMATED) 2020-11-06 12:08:00 Fuller, Eden [facility] POCT GLUCOSE (AUTOMATED) 2020-11-06 11:09:00 Fuller, Eden [facility] POCT GLUCOSE (AUTOMATED) 2020-11-06 11:09:00 Fuller, Eden [facility] POCT GLUCOSE (AUTOMATED) 2020-11-06 11:09:00 Fuller, Eden [facility] POCT GLUCOSE (AUTOMATED) 2020-11-06 11:09:00 Fuller, Eden [facility] POCT GLUCOSE (AUTOMATED) 2020-11-06 11:09:00 Fuller, Eden [facility] POCT GLUCOSE (AUTOMATED) 2020-11-06 07:41:00 FullerPiterrommel [facility] POCT GLUCOSE (AUTOMATED) 2020-11-06 07:41:00 Fuller Eden [facility] POCT GLUCOSE (AUTOMATED) 2020-11-06 07:41:00 Fuller, Eden [facility] POCT GLUCOSE (AUTOMATED) 2020-11-06 07:41:00 Fuller, Eden [facility] POCT GLUCOSE (AUTOMATED) 2020-11-06 07:41:00 Fuller, Eden [facility] POCT GLUCOSE (AUTOMATED) 2020-11-06 06:54:00 Fuller, Eden [facility] POCT GLUCOSE (AUTOMATED) 2020-11-06 06:54:00 Fuller, Eden [facility] POCT GLUCOSE (AUTOMATED) 2020-11-06 06:54:00 Fuller, Eden [facility] POCT GLUCOSE (AUTOMATED) 2020-11-06 06:54:00 Fuller, Eden [facility] POCT GLUCOSE (AUTOMATED) 2020-11-06 06:54:00 Fuller, Eden [facility] POCT GLUCOSE (AUTOMATED) 2020-11-06 06:28:00 Fuller, Eden [facility] POCT GLUCOSE (AUTOMATED) 2020-11-06 06:28:00 Fuller, Eden [facility] POCT GLUCOSE (AUTOMATED) 2020-11-06 06:28:00 Fuller, Eden [facility] POCT GLUCOSE (AUTOMATED) 2020-11-06 06:28:00 Fuller, Eden [facility] POCT GLUCOSE (AUTOMATED) 2020-11-06 06:28:00 Fuller, Eden [facility] POCT GLUCOSE (AUTOMATED) 2020-11-06 05:35:00 Fuller, Eden [facility] POCT GLUCOSE (AUTOMATED) 2020-11-06 05:35:00 Fuller, Eden [facility] POCT GLUCOSE (AUTOMATED) 2020-11-06 05:35:00 Fuller, Eden [facility] POCT GLUCOSE (AUTOMATED) 2020-11-06 05:35:00 Fuller, Eden [facility] POCT GLUCOSE (AUTOMATED) 2020-11-06 05:35:00 Fuller, Eden [facility] POCT GLUCOSE (AUTOMATED) 2020-11-06 04:31:00 Fuller, Eden [facility] POCT GLUCOSE (AUTOMATED) 2020-11-06 04:31:00 Fuller, Eden [facility] POCT GLUCOSE (AUTOMATED) 2020-11-06 04:31:00 Fuller, Eden [facility] POCT GLUCOSE (AUTOMATED) 2020-11-06 04:31:00 Fuller, Eden [facility] POCT GLUCOSE (AUTOMATED) 2020-11-06 04:31:00 Fuller, Eden [facility] POCT GLUCOSE (AUTOMATED) 2020-11-06 03:32:00 Fuller, Eden [facility] POCT GLUCOSE (AUTOMATED) 2020-11-06 03:32:00 Fuller, Eden [facility] POCT GLUCOSE (AUTOMATED) 2020-11-06 03:32:00 Fuller, Eden [facility] POCT GLUCOSE (AUTOMATED) 2020-11-06 03:32:00 Fuller, Eden [facility] POCT GLUCOSE (AUTOMATED) 2020-11-06 03:32:00 Fuller, Eden [facility] POCT GLUCOSE (AUTOMATED) 2020-11-06 02:22:00 Fuller, Eden [facility] POCT GLUCOSE (AUTOMATED) 2020-11-06 02:22:00 Fuller, Eden [facility] POCT GLUCOSE (AUTOMATED) 2020-11-06 02:22:00 Fuller, Eden [facility] POCT GLUCOSE (AUTOMATED) 2020-11-06 02:22:00 Fuller, Eden [facility] POCT GLUCOSE (AUTOMATED) 2020-11-06 02:22:00 Fuller, Eden [facility] POCT GLUCOSE (AUTOMATED) 2020-11-06 01:35:00 Fuller, Eden [facility] POCT GLUCOSE (AUTOMATED) 2020-11-06 01:35:00 Piter Fullerrommel [facility] POCT GLUCOSE (AUTOMATED) 2020-11-06 01:35:00 Fuller Eden [facility] POCT GLUCOSE (AUTOMATED) 2020-11-06 01:35:00 Fuller, Eden [facility] POCT GLUCOSE (AUTOMATED) 2020-11-06 01:35:00 Piter Fullerrommel Subramanian versity of [facility] ABORH CONFIRMATION 2020-11-05 23:53:00 Eden Fuller [facility] ABORH CONFIRMATION 2020-11-05 23:53:00 Eden Fuller [facility] ABORH CONFIRMATION 2020-11-05 23:53:00 FullerEden [facility] ABORH CONFIRMATION 2020-11-05 23:53:00 FullerEden [facility] ABORH CONFIRMATION 2020-11-05 23:53:00 FullerEden [facility] POCT GLUCOSE (AUTOMATED) 2020-11-05 23:49:00 Eden Fuller [facility]SE (AUTOMATED) 2020-11-05 23:49:00 Eden Fuller [facility] PO[facility] GLUCOSE (AUTOMATED) 2020-11-05 23:49:00 Eden [facility] POCT GLUCOSE (AUTOMATED) 2020-11-05 23:49:00 Eden Fuller [facility] PO[facility]UCOSE (AUTOMATED) 2020-11-05 23:49:00 Eden Fuller [facility] PO[facility] GLUCOSE (AUTOMATED) 2020-11-05 23:12:00 Eden Fuller [facility] PO[facility] GLUCOSE (AUTOMATED) 2020-11-05 23:12:00 Eden Fuller [facility] POCT GLUCOSE (AUTOMATED) 2020-11-05 23:12:00 Eden Fuller [facility] PO[facility]UCOSE (AUTOMATED) 2020-11-05 23:12:00 Eden Fuller [facility] PO[facility] GLUCOSE (AUTOMATED) 2020-11-05 23:12:00 Eden Fuller Marilynn [facility] HB ABO GROUPING 2020-11-05 23:08:00 Juan Carlos [facility] HB ABO GROUPING 2020-11-05 23:08:00 Juan Carlos [facility] HB ABO GROUPING 2020-11-05 23:08:00 Juan Carlos [facility] HB ABO GROUPING 2020-11-05 23:08:00 Juan Carlos [facility] HB ABO GROUPING 2020-11-05 23:08:00 Juan Carlos [facility] POCT GLUCOSE (AUTOMATED) 2020-11-05 21:45:00 Eden Fuller [facility] PO[facility]UCOSE (AUTOMATED) 2020-11-05 21:45:00 Eden Fuller [facility] POCT GLUCOSE (AUTOMATED) 2020-11-05 21:45:00 Eden Fuller [facility] POCT GLUCOSE (AUTOMATED) 2020-11-05 21:45:00 Eden Fuller [facility] POCT GLUCOSE (AUTOMATED) 2020-11-05 21:45:00 Eden Fuller [facility] PHOSPHORUS 2020-11-05 21:44:00 Juan Carlos [facility] MAGNESIUM 2020-11-05 21:44:[address] [facility] BASIC METABOLIC PANEL 2020-11-05 21:44:[address] [facility] (NA, K, CL, CO2, GLUCOSE, Medica l Branch BUN, CREATININE, CA) PHOSPHORUS 2020-11-05 21:44:00 Juan Carlos [facility] MAGNESIUM 2020-11-05 21:44:00 Juan Carlos [facility] BASIC METABOLIC PANEL 2020-11-05 21:44:00 Juan Carlos [facility] (NA, K, CL, CO2, GLUCOSE, Medica l Branch BUN, CREATININE, CA) PHOSPHORUS 2020-11-05 21:44:00 Juan Carlos [facility] MAGNESIUM 2020-11-05 21:44:00 Juan Carlos [facility] BASIC METABOLIC PANEL 2020-11-05 21:44:[address] [facility] (NA, K, CL, CO2, GLUCOSE, Medica l Branch BUN, CREATININE, CA) PHOSPHORUS 2020-11-05 21:44:00 Juan Carlos [facility] MAGNESIUM 2020-11-05 21:44:[address] [facility] BASIC METABOLIC PANEL 2020-11-05 21:44:[address] [facility] (NA, K, CL, CO2, GLUCOSE, Medica l Branch BUN, CREATININE, CA) PHOSPHORUS 2020-11-05 21:44:00 Juan Carlos [facility] MAGNESIUM 2020-11-05 21:44:00 Juan Carlos [facility] Medical Branch BASIC METABOLIC PANEL 2020-11-05 21:44:[address] [facility] (NA, K, CL, CO2, GLUCOSE, Medica l Branch BUN, CREATININE, CA) COVID-19 (ID NOW RAPID 2020-11-05 21:17:00 [place], [facility] TESTING) Medical Branch LAB ONLY COVID 2020-11-05 21:17:00 [place], [facility] Medical Branch COVID-19 (ID NOW RAPID 2020-11-05 21:17:00 [place], [facility] TESTING) Medical Branch LAB ONLY COVID 2020-11-05 21:17:00 [place], [facility] COVID-19 (ID NOW RAPID 2020-11-05 21:17:00 [place], [facility] TESTING) Medical Branch LAB ONLY COVID 2020-11-05 21:17:00 [place], [facility] INTERPRETATION Medical Branch COVID-19 (ID NOW RAPID 2020-11-05 21:17:00 [place], [facility] TESTING) Medical Branch LAB ONLY COVID 2020-11-05 21:17:00 [place], [facility] INTERPRETATION Medical Branch COVID-19 (ID NOW RAPID 2020-11-05 21:17:00 [place], [facility] TESTING) Medical Branch LAB ONLY COVID 2020-11-05 21:17:00 [place]kinCatherine flanneryCounts include 234 beds at the [facility] INTERPRETATION Medical Branch XR ANKLE 3+ VW LEFT 2020-11-05 21:11:00 LumpkinKalina flannery [facility] Medical Branch XR FOOT 3+ VW LEFT 2020-11-05 21:11:00 LumpkinKalina flannery [facility] Medical Branch XR ANKLE 3+ VW LEFT 2020-11-05 21:11:00 LumpkinKalina flannery [facility] Medical Branch XR FOOT 3+ VW LEFT 2020-11-05 21:11:00 [place], Kalina [facility] Medical Branch XR ANKLE 3+ VW LEFT 2020-11-05 21:11:00 LumpkinCatherine Mayfieldecca [facility] XR FOOT 3+ VW LEFT 2020-11-05 21:11:00 [place], Kalina [facility] Medical Branch XR ANKLE 3+ VW LEFT 2020-11-05 21:11:00 [place], Kalina [facility] XR FOOT 3+ VW LEFT 2020-11-05 21:11:00 [place], Kalina [facility] Branch XR ANKLE 3+ VW LEFT 2020-11-05 21:11:00 [place], Kalina [facility] XR FOOT 3+ VW LEFT 2020-11-05 21:11:00 LumpkinKalina [facility] LACTIC ACID WHOLE BLOOD 2020-11-05 19:52:00 Alonso Rangel [facility] IONIZED CALCIUM 2020-11-05 19:52:00 Alonso Rangel [facility] CBC WITH DIFF 2020-11-05 19:52:[facility]IN 2020-11-05 19:52:[address] [facility] ([facility] LACTIC ACID WHOLE BLOOD 2020-11-05 19:52:00 Alonso Rangel [facility] IONIZED CALCIUM 2020-11-05 19:52:00 Alonso Rangel [facility] CBC WITH DIFF 2020-11-05 19:52:00 Alonso Rangel [facility] GLYCOSYLATED HEMOGLOBIN 2020-11-05 19:52:[address] [facility] ([facility] LACTIC ACID WHOLE BLOOD 2020-11-05 19:52:00 Alonso Rangel [facility] IONIZED CALCIUM 2020-11-05 19:52:00 Alonso Rangel [facility] CBC WITH DIFF 2020-11-05 19:52:00 Alonso Rangel [facility] GLYCOSYLATED HEMOGLOBIN 2020-11-05 19:52:[address] [facility] (A1C) [facility] LACTIC ACID WHOLE BLOOD 2020-11-05 19:52:00 Alonso Rangel [facility] IONIZED CALCIUM 2020-11-05 19:52:00 Alonso Rangel [facility] CBC WITH DIFF 2020-11-05 19:52:00 Alonso Rangel [facility] GLYCOSYLATED HEMOGLOBIN 2020-11-05 19:52:[address] [facility] (A1C) [facility] LACTIC ACID WHOLE BLOOD 2020-11-05 19:52:00 Alonso Rangel [facility] IONIZED CALCIUM 2020-11-05 19:52:00 Alonso Rangel [facility] CBC WITH DIFF 2020-11-05 19:52:00 Alonso Rangel [facility] GLYCOSYLATED HEMOGLOBIN 2020-11-05 19:52:[address] [facility] (A1C) [facility] POCT GLUCOSE (AUTOMATED) 2020-11-05 19:50:00 Eden [facility]UCOSE (AUTOMATED) 2020-11-05 19:50:00 Eden Fuller [facility] POCT GLUCOSE (AUTOMATED) 2020-11-05 19:50:00 Eden Fuller [facility] POCT GLUCOSE (AUTOMATED) 2020-11-05 19:50:00 Eden Fuller [facility] POCT GLUCOSE (AUTOMATED) 2020-11-05 19:50:00 [facility] 2020-08-20 00:00:00 Alonso Rangel [facility] EXTERNAL PROVIDER RECORDS 2020-07-28 06:01:00 Doctor Jameson, [facility] Name [facility] CONSENT/REFUSAL FOR 2020-07-07 18:54:[address] [facility] DIAGNOSIS AND TREATMENT [facility] [place] ASSIGNMENT OF BENEFITS 2020-07-07 18:54:21 Doctor Jameson [facility] [place] POCT GLUCOSE (AUTOMATED) 2020-06-30 17:28:00 Israel Singletary Uni versity of [facility] POCT GLUCOSE (AUTOMATED) 2020-06-30 13:49:00 Israel Singletary Uni versity of [facility] VANCOMYCIN TROUGH 2020-06-30 07:58:00 Philly Jones, [facility] BASIC METABOLIC PANEL 2020-06-30 06:12[facility], CO2, GLUCOSE, Medica l Branch BUN, CREATININE, CA) CBC WITH DIFF 2020-06-30 06:12:00 Smith [facility] POCT GLUCOSE (AUTOMATED) 2020-06-30 01:35:00 Israel Singletary Uni versity [facility] POCT GLUCOSE (AUTOMATED) 2020-06-29 22:18:00 Israel Singletary Uni versity [facility] POCT GLUCOSE (AUTOMATED) 2020-06-29 17:33:00 Israel Singletary Uni versity [facility] VALERIA MULTI LEVEL BY 2020-06-29 14:36:[facility] POCT GLUCOSE (AUTOMATED) 2020-06-29 13:50:00 Israel Singletary Uni versity [facility] BASIC METABOLIC PANEL 2020-06-29 09:22:00 Smith [facility] (NA, K, CL, CO2, GLUCOSE, Medica l Branch BUN, CREATININE, CA) CBC WITH DIFF 2020-06-29 09:22:00 Smith [facility] GLYCOSYLATED HEMOGLOBIN 2020-06-29 09:22:[facility] POCT GLUCOSE (AUTOMATED) 2020-06-29 06:16:00 Israel Singletary Uni versity [facility] POCT GLUCOSE (AUTOMATED) 2020-06-29 02:22:00 Israel Singletary Uni versity [facility] URINALYSIS 2020-06-28 22:05:00 Smith [facility]ond [facility]US 2020-06-28 20:18:00 [facility] MAGNESIUM 2020-06-28 20:18:00 [facility] IONIZED CALCIUM 2020-06-28 20:18:00 [facility] BASIC METABOLIC PANEL 2020-06-28 20:18:00 [place] [facility] (NA, K, CL, CO2, GLUCOSE, Medica l Branch BUN, CREATININE, CA) CBC WITH DIFF 2020-06-28 20:18:00 [facility] POCT GLUCOSE (AUTOMATED) 2020-06-28 20:18:00 Israel [facility]ary [facility] 2020-06-28 06:01:00 Doctor Unassigned, [facility] [place] [facility] Plan of Care Planned Activity Planned Date Details Comments Source Future Scheduled 2022-05-13 HEPATITIS B VACCINES Met [facility] Test 23:51:55 (1 of 3 - 3-dose series) [code = HEPATITIS B VACCINES (1 of 3 - 3-dose series)] Future Scheduled 2022-05-13 Hepatitis C screening [facility] Test 23:51:55 (procedure) [code = 615814511] Future Scheduled 2022-05-13 COLONOSCOPY SCREENING [facility] Test 23:51:55 [code = COLONOSCOPY SCREENING] Future Scheduled 2022-05-13 SHINGLES VACCINES (1 [facility] Test 23:51:55 of 2) [code = SHINGLES VACCINES (1 of 2)] Future Scheduled 2022-05-13 COVID-19 VACCINE (4 - [facility] Test 23:51:55 Booster for Moderna series) [code = COVID-19 VACCINE (4 - Booster for Moderna series)] Future Scheduled 2022-05-13 INFLUENZA VACCINE [facility] Test 23:51:55 [code = INFLUENZA VACCINE] Encounters Start End Encounter Admission Attending Care Care Encounter Source Date/Time Date/Time Type Type Clinicians Facility Department ID 2021-12-26 Outpatient R [facility] [id number] Univers 13:59:30 ity [facility] 2022-04-21 2022-04-21 Patient Manan, 1.2.840.1 [id number] Methodi 00:00:00 00:00:00 Outreach María 90062.1.[address] 3.430.2.7 Hospit a .3.303915 l .8 2022-03-29 2022-04-18 [facility] Shankar Bates 1.2.840.1 10 [id number] Methodi 19:41:00 15:26:00 Encounter Cris Ramirez 91477.1.[address] Dimitrios Ray 3.430.2.7 [facility]osp[facility] Ma[facility] Hays .3.118676 l Ashtyn Pedersen .8 2022-03-29 2022-04-18 Inpatient ASHTYN PEDERSEN [facility] [id number] Braman 00:00:00 00:00:[address] 2022-04-13 2022-04-13 Surgery Isaac, 1.2.840.1 [id number] Methodi 17:00:00 19:50:00 Holger T 93957.1.[address] 3.430.2.7 Hospit a .3.767254 l .8 2022-04-13 2022-04-13 Anesthesia Malick Terry 1.2.840.1 1 [id number] Methodi 15:58:00 17:28:00 Event Shankar Oreilly 76592.1.[address] 3.430.2.7 Hospit a .3.853194 l .8 2022-04-05 2022-04-05 Outpatient R [facility] [id number] Univers 12:30:00 12:30:00 ity of [facility] 2022-03-29 2022-03-29 Travel 1.2.840.1 1.2.617.828 [id number] Methodi 00:00:00 00:00:[address] 3.430.2.7 0.2.7.3.698 Ho spita .3.156489 084.8 l .8 2022-03-25 2022-03-25 Emergency Boyareddiga 1.2.840.1 [id number] Methodi 14:10:00 15:07:00 ri, 58016.1.1 766 [address] R. 3.430.2.7 Ho spita .3.762796 l .8 2022-03-25 2022-03-25 Emergency BRYAN [facility] [id number] Braman 00:00:00 00:00:00 RI, [address] 2022-03-22 2022-03-22 Outpatient R DILCIA [facility] [id number] Univers 10:58:30 23:59:00 JERONIMO ity of [facility] 2022-03-22 2022-03-22 [facility] WANDA Ha 1.2.296.609 [id number] Univers 10:58:30 23:59:00 Encounter Jeronimo MADDISON 350.1.13.10 ity [facility] 4.2.7.2.686 Jelani as [phone] [address] 2022-03-08 2022-03-08 Outpatient ISRAEL FARFAN [facility] [id number] Univers 12:08:26 23:59:00 ity of [facility] 2022-03-08 2022-03-08 [facility] Israel Singletary 1.2.840.114 [id number] Univers 12:08:26 23:59:00 Encounter MADDISON 350.1.13.10 ity [facility] 4.2.7.2.686 Jelani as [id number] [address] 2022-03-07 2022-03-07 Outpatient ISRAEL FARFAN [facility] [id number] Univers 12:30:00 12:30:00 ity of [facility] 2022-03-02 2022-03-02 Outpatient Sowmya [facility] [id number] Univers 08:11:05 23:59:00 ity [facility] 2022-03-02 2022-03-02 [facility] Israel Singletary 1.2.840.114 [id number] Univers 08:11:05 23:59:00 Encounter MADDISON 350.1.13.10 ity [facility] 4..7.2.686 Jelani as [id number] [address] 2022-03-01 2022-03-01 Telephone WANDA Ha 1.2.840.114 [id number] Univers 00:00:00 00:00:00 Jeronimo MADDISON 350.1.13.10 it y of [facility] 4.2.7.2.686 Jelani as [id number] [facility] [address] 2022-02-27 2022-02-27 Outpatient R DILCIA [facility] [id number] Univers 09:36:28 23:59:00 JERONIMO michel [facility] 2022-02-27 2022-02-27 Hospital WANDA Ha 1.2.272.743 [id number] Univers 09:36:28 23:59:00 Encounter Jeronimo MADDISON 350.1.13.10 ity of [facility] 4.2.7.2.686 Jelani as [id number] [facility] [address] 2022-02-24 2022-02-24 Surgery WANDA Fuller 1.2.840.114 [id number] Univers 09:28:00 12:08:00 Eden MADDISON 350.1.13.10 it y of [facility] 4.2.7.2.686 Jelani as [id number] [facility] [address] 2022-02-24 2022-02-24 Outpatient Sowmya FULLER [facility] [id number] Univers 07:29:00 11:54:00 EDEN marilu [facility] 2022-02-24 2022-02-24 WANDA Dinh 1.2.840.114 [id number] Univers 07:29:00 11:54:00 Encounter Eden MADDISON 350.1.13.10 ity of [facility] 4.2.7.2.686 Jelani as [id number] [facility] [address] 2022-02-24 2022-02-24 Orders Doctor CHAMORRO 1.2.840.114 [id number] Univers 00:00:00 00:00:00 Only Unassigned, MADDISON 350.1.13.10 ity of [place] [facility] 4.2.7.2.686 Jelani as [id number] [facility] [address] 2022-02-23 2022-02-23 Letter Germania, ASHTYN 1.2.840.114 [id number] Univers 00:00:00 00:00:00 (Out) Muna Ortiz MADDISON 350.1.13.10 it y [facility] 4.2.7.2.686 Jelani as [id number] [address] 2022-02-22 2022-02-22 Laboratory Only, Ang Db Test [facility] 1.2.8 40.114 [id number] Univers 11:00:00 11:15:00 Only Olimpia Bhardwaj [facility] 350.1.13.10 ity [facility] 4.2.7.2.686 Jelani as LAM?BLEA [id number] [address] MEDICAL OFFICE BUILDING 2022-02-22 2022-02-22 Outpatient Sowmya BHARDWAJ [facility] [id number] Univers 11:00:00 11:11:15 OLIMPIA [facility] 2022-02-20 2022-02-20 Outpatient Sowmya FULLER [facility] [id number] Univers 12:29:58 23:59:00 EDEN michel [facility] 2022-02-20 2022-02-20 WANDA Dinh 1.2.840.114 [id number] Univers 12:29:58 23:59:00 Encounter Eden [facility]URN [facility].13.10 [facility] 4.2.7.2.686 Jelani as [id number] [address] 2022-02-14 2022-02-14 Outpatient Sowmya HA [facility] [id number] Univers 13:18:44 23:59:00 JERONIMO michel [facility] 2022-02-10 2022-02-10 Outpatient Sowmya HA [facility] [id number] Univers 12:30:00 12:30:00 JERONIMO michel [facility] 2022-02-09 2022-02-09 Outpatient Sowmya HA [facility] [id number] Univers 12:30:00 23:59:00 JERONIMO michel [facility] 2022-02-09 2022-02-09 WANDA Rodriguez 1.2.793.527 [id number] Univers 12:30:00 23:59:00 Encounter Jeronimo MADDISON 350.1.13.10 ity of [facility] 4.2.7.2.686 Jelani as [id number] [address] 2022-02-03 2022-02-03 Outpatient Sowmya FULLER [facility] [id number] Univers 12:06:48 23:59:00 EDEN michel [facility] 2022-02-03 2022-02-03 [facility] WANDA Fuller 1.2.840.114 [id number] Univers 12:06:48 23:59:00 Encounter Eden WILEYY 350.1.13.10 ity of [place] [address].2.7.2.686 Jelani as [phone] [address] 2022-01-31 2022-01-31 Telephone Jerry Patrick 1.2.840.114 [id number] Univers 00:00:00 00:00:00 Mike MADDISON 350.1.13.10 i ty of [facility] 4.2.7.2.686 Jelani as [id number] [address] 2022-01-30 2022-01-30 Outpatient Sowmya FULLER [facility] [id number] Univers 11:21:34 23:59:00 EDEN michel [facility] 2022-01-30 2022-01-30 [facility] WANDA Fuller 1.2.840.114 [id number] Univers 11:21:34 23:59:00 Encounter Eden MADDISON 350.1.13.10 ity [place] [address].2.7.2.686 Jelani as [phone] [address] 2022-01-26 2022-01-26 Outpatient ISRAEL FARFAN [facility] [id number] Univers 11:02:13 23:59:00 ity [facility] 2022-01-26 2022-01-26 [facility] Israel Singletary 1.2.840.114 [id number] Univers 11:02:13 23:59:00 Encounter MADDISON 350.1.13.10 ity of [place] [address].2.7.2.686 Jelani as [id number] [address] 2022-01-24 2022-01-24 Outpatient ISRAEL FARFAN [facility] [id number] Univers 12:30:00 12:30:00 ity of [facility] 2022-01-17 2022-01-17 Outpatient R SVITLANAANNEL [facility] [id number] Univers 12:17:53 23:59:00 JERRICA michel of [facility] 2022-01-17 2022-01-17 [facility] WANDA Peoples 1.2.151.593 [id number] Univers 12:17:53 23:59:00 Encounter Mikejacinta Mauricio MADDISON 350.1.13.10 ity of HOSPITAL 4.2.7.2.686 Jelani as [id number] [facility] [address] 2022-01-12 2022-01-[address] [facility] [facility] [id number] Univers 05:31:00 10:40:00 EDEN michel of [facility] 2022-01-12 2022-01-12 Hospital WANDA Fuller 1.2.840.114 [id number] Univers 05:31:00 10:40:00 Encounter Eden WASHBURN 350.1.13.10 ity of [facility] 4.2.7.2.686 Jelani as [id number] [facility] [address] 2022-01-12 2022-01-12 Anesthesia Sindhu Aguilar 1.2.84 0.114 [id number] Univers 07:20:00 09:49:00 Event Felicita Bartholomew 350.1.13.10 ity of [facility] 4.2.7.2.686 Jelani as [id number] [facility] [address] 2022-01-12 2022-01-12 Surgery WANDA Fuller 1.2.840.114 [id number] Univers 07:00:00 09:14:00 Eden WASHBURN 350.1.13.10 it y of [facility] 4.2.7.2.686 Jelani as [id number] [facility] [address] 2022-01-12 2022-01-12 Orders Doctor CHAMORRO 1.2.840.114 [id number] Univers 00:00:00 00:00:00 Only UnassignedMADDISON 350.1.13.10 ity of [place] [facility] 4.2.7.2.686 Jelani as [id number] [facility] [address] [place] 2022-01-09 2022-01-09 Telephone Israel Singletary 1.2.840.114 [id number] Univers 00:00:00 00:00:00 MADDISON 350.1.13.10 it y of [facility] 4.2.7.2.686 Jelani as [id number] [facility] [address] [place] 2022-01-04 2022-01-04 Telephone Suzette Jolley 1.2.840.114 [id number] Univers 00:00:00 00:00:00 MADDISON 350.1.13.10 it y of [facility] 4.2.7.2.686 Jelani as [id number] [facility] [address] [place] 2022-01-03 2022-01-03 Outpatient Sowmya MENG [facility] [id number] Univers 15:15:00 15:42:23 KEISHA ity [facility] 2022-01-03 2022-01-03 Laboratory Only, Ang Db Test [facility] 1.2.8 40.114 [id number] Univers 15:15:00 15:30:00 Only [facility] 350.1.13.10 ity [facility] 4.2.7.2.686 Jelani as LAM?BLEA [id number] [address] MEDICAL OFFICE BUILDING 2021-12-26 2021-12-26 Outpatient R ISRAEL SINGLETARY [facility] [id number] Univers 12:29:51 23:59:00 ity of [facility] 2021-12-26 2021-12-26 Hospital Israel Singletary 1.2.840.114 [id number] Univers 12:29:51 23:59:00 Encounter MADDISON 350.1.13.10 ity of [facility] 4.2.7.2.686 Jelani as [id number] [address] 2021-12-08 2021-12-08 Outpatient Sowmya FULLER [facility] [id number] Univers 11:27:36 23:59:00 EDEN ity [facility] 2021-12-08 2021-12-08 WANDA Dinh 1.2.840.114 [id number] Univers 11:27:36 23:59:00 Encounter Eden MADDISON 350.1.13.10 ity of [facility] 4.2.7.2.686 Jelani as [id number] [facility] [address] [place] 2021-11-07 2021-11-07 Outpatient Sowmya FULLER [facility] [id number] Univers 12:08:04 23:59:00 EDEN michel [facility] 2021-11-07 2021-11-07 WANDA Dinh 1.2.840.114 [id number] Univers 12:08:04 23:59:00 Encounter Eden MADDISON 350.1.13.10 ity of [facility] 4.2.7.2.686 Jelani as [id number] [facility] [address] [place] 2021-08-19 2021-08-19 Outpatient Sowmya [facility] [id number] Univers 12:37:34 23:59:00 JERONIMO michel [facility] 2021-08-19 2021-08-19 WANDA Rodriguez 1.2.083.618 [id number] Univers 12:37:34 23:59:00 Encounter Jeronimo MADDISON 350.1.13.10 ity of [facility] 4.2.7.2.686 Jealni as [phone] [facility] [address] [place] 2021-08-19 2021-08-19 Ancillary Room, Ana Lilia-Occup Therapy Tub LETI IE 1.2.840.114 [id number] Univers 10:00:00 11:00:00 Visit Kanu Balbuena 350.1.13.10 ity of [facility] 4.2.7.2.686 Jelani as [id number] [facility] [address] 2021-08-19 2021-08-19 [facility] [id number] Univers 10:00:00 10:00:00 KANU michel [facility] 2021-08-19 2021-08-19 Orders Doctor CHAMORRO 1.2.840.114 [id number] Univers 00:00:00 00:00:00 Only Unassigned, MADDISON 350.1.13.10 ity of [place] [facility] 4.2.7.2.686 Jelani as [phone] [place] [address] [address] 2021-07-12 2021-07-12 Outpatient R [facility] [id number] Univers 12:30:00 12:30:00 [facility] 2021-06-14 2021-06-14 Outpatient R KING [facility] [id number] Univers 12:09:09 23:59:00 FELICITA [facility] 2021-06-14 2021-06-14 Felicita Whelan 1.2.840 .114 [id number] Univers 12:09:09 23:59:00 Encounter Eden Fuller MADDISON 350.1.13.10 ity [facility] 4.2.7.2.686 Jelani as [id number] [facility] [address] [place] 2021-06-10 2021-06-10 Outpatient R SHELTON [facility] [id number] Univers 12:30:00 12:30:00 JERRICA [facility] 2021-06-03 2021-06-03 Outpatient R JONNY [facility] [id number] Univers 12:30:00 12:30:00 EDEN [facility] 2021-05-30 2021-05-30 Imm/Inj Nurse, Adc Pob Immunization [facility] 1.2.840.114 [id number] Univers 13:33:39 13:33:50 Visit Jeronimo Daley 350.1.13 .10 [facility] 4.2.7.2.686 [place] [phone] Ri dical [facility] [address] [facility] 2021-05-30 2021-05-30 Outpatient Sowmya DALEY [facility] [id number] Univers 13:30:00 13:30:00 JERONIMO adi [facility] 2021-05-13 2021-05-13 Outpatient R ISRAEL SINGLETARY [facility] [id number] Univers 12:30:00 12:30:00 [facility] 2021-05-06 2021-05-06 Outpatient R DILCIA [facility] [id number] Univers 08:00:58 23:59:00 JERONIMO adi [facility] 2021-05-06 2021-05-06 [facility] WNADA Ha 1.2.207.590 [id number] Univers 08:00:58 23:59:00 Encounter Jeronimo [facility].13.10 [facility] 4.2.7.2.686 Jelani as [phone] [address] 2021-04-29 2021-04-29 Outpatient R SHELTON [facility] [id number] Univers 09:42:44 23:59:00 [facility] 2021-04-29 2021-04-29 [facility] Shelton WANDA 1.2.585.612 [id number] Univers 09:42:44 23:59:00 Encounter Mikejacinta Mauricio [facility]DIS[facility].1.13.10 [facility] 4.2.7.2.686 Jelani as [phone] [address] 2021-04-27 2021-04-27 Outpatient R SHELTON [facility] [id number] Univers 13:00:00 13:00:00 [facility] 2021-04-25 2021-04-25 [facility] [id number] Univers 13:00:00 13:00:00 [facility] 2021-04-13 2021-04-13 [facility] Israel Singletary Jani Wanda 1.2.840.114 [id number] Univers 08:48:56 23:59:00 Encounter Madd[facility]13.10 [facility] 4.2.7.2.686 Jelani as [id number] [address] 2021-04-13 2021-04-13 Outpatient R [facility] [id number] Univers 12:30:00 12:30:00 ity [facility] 2021-04-06 2021-04-06 [facility] Wanda Ha 1.2.716.814 [id number] Univers 09:48:41 23:59:00 Encounter Jeronimo Washburn 350.1.13.10 [facility] 4.2.7.2.686 Jelani as [id number] [address] 2021-04-06 2021-04-06 Outpatient R HA, [facility] [id number] Univers 12:30:00 12:30:00 JERONIMO knightadi [facility] 2021-03-17 2021-03-17 Telephone Wanda Fuller 1.2.786.632 [id number] Univers 00:00:00 00:00:00 Eden Washburn 350.1.13.10 it y of [facility] 4.2.7.2.686 Jelani as [id number] [address] 2021-02-28 2021-02-28 [facility] Wanda Fuller 1.2.840.114 [id number] Univers 12:13:29 23:59:00 Encounter Eden Washburn 350.1.13.10 ity [facility] 4.2.7.2.686 Jelani as [id number] [address] 2021-02-28 2021-02-28 [facility] Wanda Fuller 1.2.840.114 [id number] Univers 12:13:29 23:59:00 Encounter Eden Washburn 350.1.13.10 ity [facility] 4.2.7.2.686 Jelani as [phone] [address] 2021-02-28 2021-02-28 Ancillary Room, Ana Lilia-Occup Therapy Tub Leti ie 1.2.840.114 [id number] Univers 15:13:39 16:13:39 Visit Kanu Balbuena 350.1.13.10 ity [facility] 4.2.7.2.686 Jelani as [phone] [address] 2021-02-28 2021-02-28 Ancillary Room, Ana Lilia-Occup Therapy Tub Leti ie 1.2.840.114 [id number] Univers 15:13:39 16:13:39 Visit Kanu Balbuena 350.1.13.10 ity of [facility] 4.2.7.2.686 Jelani as [phone] [address] 2021-02-28 2021-02-28 Outpatient Sowmya FULLER [facility] [id number] Univers 12:30:00 12:30:00 EDEN michel [facility] 2021-02-28 2021-02-28 Outpatient Sowmya BALBUENA [facility] [id number] Univers 11:00:00 11:00:00 KANU eugeneadi [facility] 2021-02-21 2021-02-21 Hospital Unknown, Attending Wanda 1.2.84 0.114 [id number] Univers 12:26:52 23:59:00 Encounter Jerrica Peoples 350.1.13.1 0 ity of Hospital 4.2.7.2.686 Jelani as [id number] [facility] [address] 2021-02-21 2021-02-21 Hospital Unknown, Attending Wanda 1.2.84 0.114 [id number] Univers 12:26:52 23:59:00 Encounter Jerrica Peoples 350.1.13.1 0 ity of Hospital 4.2.7.2.686 Jelani as [id number] [facility] [address] [place] 2021-02-21 2021-02-21 Ancillary Room, Ana Lilia-Occup Therapy Tub Leti ie 1.2.840.114 [id number] Univers 14:39:23 15:39:23 Visit Kanu Balbuena 350.1.13.10 ity of Hospital 4.2.7.2.686 Jelani as [id number] [facility] [address] [place] 2021-02-21 2021-02-21 Ancillary Room, Ana Lilia-Occup Therapy Tub Leti ie 1.2.840.114 [id number] Univers 14:39:23 15:39:23 Visit Kanu Balbuena 350.1.13.10 ity of Hospital 4.2.7.2.686 Jelani as [id number] [facility] [address] [place] 2021-02-21 2021-02-21 Outpatient R YURI, [facility] [id number] Univers 13:00:00 13:00:00 ATTENDING marilu [facility] 2021-02-21 2021-02-21 Outpatient Sowmya FULLER, [facility] [id number] Univers 12:30:00 12:30:00 EDEN michel [facility] 2021-02-21 2021-02-21 Outpatient Sowmya BALBUENA, [facility] [id number] Univers 12:00:00 12:00:00 KANU michel [facility] 2021-02-142021-02-14 [facility] Israel Singletary 1.2.840.114 [id number] Univers 12:30:00 23:59:00 Encounter Eden Fuller Maddison 350.1.13.10 ity [facility] 4.2.7.2.686 Jelani as [id number] [facility] [address] 2021-02-14 2021-02-14 Outpatient R ISRAEL SINGLETARY [facility] [id number] Univers 12:30:00 12:30:00 ity [facility] 2021-02-09 2021-02-09 Hospital Wanda Ha 1.2.487.541 [id number] Univers 12:17:45 23:59:00 Encounter Jeronimo Maddison 350.1.13.10 ity [facility] 4.2.7.2.686 Jelani as [id number] [facility] [address] [place] 2021-02-09 2021-02-09 Ancillary Room, Ana Lilia-Occup Therapy Tub [facility] 1.2.840.114 [id number] Univers 14:26:02 15:26:02 Visit Kanu Balbuena 350.1.13.10 ity [facility] 4.2.7.2.686 Jelani as [id number] [facility] [address] 2021-02-09 2021-02-09 Outpatient R DILCIA [facility] [id number] Univers 13:00:00 13:00:00 JERONIMO itadi [facility] 2021-02-09 2021-02-09 Outpatient ISRAEL FARFAN [facility] [id number] Univers 12:30:00 12:30:00 ity [facility] 2021-02-09 2021-02-09 Outpatient R JOHN [facility] [id number] Univers 12:00:00 12:00:00 AKNU michel [facility] 2021-01-26 2021-01-26 [facility] Israel Singletary 1.2.840.114 [id number] Univers 12:30:00 23:59:00 Encounter Maddison 350.1.13.10 ity [facility] [id number] Jelani as [phone] [address] 2021-01-26 2021-01-26 Outpatient R ISRAEL SINGLETARY [facility] [id number] Univers 12:30:00 12:30:00 ity of [facility] 2021-01-24 2021-01-24 Outpatient R ISRAEL SINGLETARY [facility] [id number] Univers 12:30:00 12:30:00 ity [facility] 2021-01-12 2021-01-12 Hospital Israel Singletary [id number] Univers 12:30:00 23:59:00 Encounter [place] [id number] ity [facility] [id number] Jelani as [phone] [address] 2021-01-12 2021-01-12 Outpatient R [facility] [id number] Univers 12:30:00 12:30:00 ity [facility] 2021-01-11 2021-01-11 Outpatient R KEMAL ISRAEL [facility] [id number] Univers 13:00:00 13:00:00 ity [facility] 2021-01-04 2021-01-04 Hospital Wanda [facility] [id number] Univers 12:30:00 23:59:00 Encounter Jeronimo [place] [id number] ity [place] [id number] Jelani as [phone] [address] 2021-01-04 2021-01-04 [facility] [id number] Univers 12:30:00 12:30:00 JERONIMO ity [facility] [facility] 2021-01-03 2021-01-03 Telephone Israel Singletary 1.2.840.114 [id number] Univers 00:00:00 00:00:00 [place] [id number] it y [facility] 4.2.7.2.686 Jelani as [phone] [address] 2020-12-23 2020-12-23 Hospital Israel Singletary 1.2.840.114 [id number] Univers 12:03:32 23:59:00 Encounter Maddison [id number] ity of [facility] 4.2.7.2.686 Jelani as [phone] [facility] [address] 2020-12-23 2020-12-23 Outpatient ISRAEL FARFAN [facility] [id number] Univers 12:30:00 12:30:00 ity of [facility] 2020-12-10 2020-12-10 Ancillary Room, Ana Lilia-Occup Therapy Tub Leti ie 1.2.840.114 [id number] Univers 09:40:16 10:40:16 Visit Kanu Balbuena [id number] ity of [facility] 4.2.7.2.686 Jelani as [phone] [facility] [address] 2020-12-09 2020-12-09 [facility] Wanda Fullre 1.2.840.114 [id number] Univers 12:30:00 23:59:00 Encounter Eden Washburn [id number] ity of [facility] 4.2.7.2.686 Jelani as [phone] [facility] [address] 2020-12-09 2020-12-09 Outpatient Sowmya FULLER [facility] [id number] Univers 12:30:00 12:30:00 EDEN michel [facility] 2020-12-09 2020-12-09 Outpatient Sowmya BALBUENA [facility] [id number] Univers 08:00:00 08:00:00 KANU michel [facility] 2020-12-06 2020-12-06 Transition Caesar Quinteros 1.2.840.114 [id number] Univers 00:00:00 00:00:00 of Care Jp Little [id number] ity [place] [phone] [facility] [address] 2020-11-05 2020-12-03 [facility] Jeronimo Ha 1. 2.840.114 [id number] Univers 13:59:00 12:10:00 Encounter Eden Fuller [id number] ity of [facility] 4.2.7.2.686 Jelani as [phone] [facility] [address] 2020-11-052020-12-03 Inpatient O JONNY [facility] YVES [id number] Univers 12:30:11 12:10:00 EDEN michel [facility] 2020-11-25 2020-11-25 Surgery Wanda Ha 1.2.840.114 [id number] Univers 14:15:00 17:09:00 Jeronimo Washburn 350.1.13.10 it y of [facility] 4.2.7.2.686 Jelani as [phone] [address] 2020-11-17 2020-11-17 Surgery Wanda Peoples 1.2.840.114 [id number] Univers 09:00:00 10:40:00 Jerrica Washburn 350.1.13.10 i ty [facility] 4.2.7.2.686 Jelani as [phone] [address] 2020-11-11 2020-11-11 Surgery Wanda Fuller 1.2.840.114 [id number] Univers 10:43:00 13:15:00 Eden Washburn 350.1.13.10 it y of [facility] 4.2.7.2.686 Jelani as [phone] [address] 2020-11-08 2020-11-08 Surgery Jonny Wanda 1.2.840.114 [id number] Univers 07:15:00 08:44:00 Eden Washburn 350.1.13.10 it y [facility] 4.2.7.2.686 Jelani as [phone] [address] 2020-11-04 2020-11-04 Outpatient Jani FULLER [facility] [id number] Univers 12:30:00 12:30:00 EDEN michel [facility] 2020-09-26 2020-09-26 Outpatient Sowmya BRAND [facility] [id number] Univers 08:30:00 15:58:58 MICKIE michel [facility] 2020-09-03 2020-09-03 Outpatient Sowmya PEOLPES [facility] [id number] Univers 12:30:00 12:30:00 JERRICA michel [facility] 2020-08-29 2020-08-29 Outpatient Sowmya BRAND [facility] [id number] Univers 09:10:00 09:10:00 MICKIE eugeneadi [facility] 2020-08-25 2020-08-25 Outpatient Sowmya HA [facility] [id number] Univers 12:30:00 12:30:00 JERONIMO adi [facility] 2020-08-20 2020-08-20 Wanda Dinh 1.2.840.114 [id number] Univers 12:30:00 23:59:00 Encounter Eden Washburn [facility]1.13.10 [facility] 4.2.7.2.686 Jelani as [phone] [facility] [address] [place] 2020-08-20 2020-08-20 Ancillary Room, Ana Lilia-Occup Therapy Tub Leti 1.2.840.114 [id number] Univers 14:08:50 15:08:50 [facility]13.[facility] 4.2.7.2.686 Jelani as [phone] [facility] [address] [place] 2020-08-20 2020-08-20 Outpatient Sowmya BALBUENA [facility] [id number] Univers 14:15:00 14:15:00 KANU adi [facility] 2020-08-20 2020-08-20 Outpatient Sowmya HA [facility] [id number] Univers 12:30:00 12:30:00 JERONIMO adi [facility] 2020-08-20 2020-08-20 Outpatient Sowmya FULLER [facility] [id number] Univers 12:30:00 12:30:00 EDEN adi [facility] 2020-08-18 2020-08-18 Outpatient Sowmya HA [facility] [id number] Univers 12:30:00 12:30:00 [facility] 2020-08-11 2020-08-11 [facility] Wanda Ha 1.2.079.328 [id number] Univers 12:30:00 23:59:00 Encounter Jeronimo Washburn 350.1.13.10 [facility] 4.2.7.2.686 Jelani as [phone] [address] 2020-08-11 2020-08-11 Outpatient R HA, [facility] [id number] Univers 12:30:00 12:30:00 JERONIMO adi [facility] 2020-08-11 2020-08-11 Outpatient R DILCIA [facility] [id number] Univers 12:30:00 12:30:00 [facility] 2020-07-28 2020-07-28 Outpatient R ISRAEL SINGLETARY [facility] [id number] Univers 12:30:00 23:59:00 ity of [facility] 2020-07-28 2020-07-28 Israel Tang 1.2.840.114 [id number] Univers 12:30:00 23:59:00 Encounter Jeronimo Ha 350.1 .13.10 ity of [facility] 4.2.7.2.686 Jelani as [phone] [address] 2020-07-28 2020-07-28 Orders Doctor ASHTYN 1.2.840.114 [id number] Univers 00:00:00 00:00:00 Only Unassigned, MADDISON 350.1.13.10 ity of [place] [facility] 4.2.7.2.686 Jelani as [phone] [place] [address] [address] 2020-07-14 2020-07-14 Hospital Jeronimo Ha 1. 2.840.114 [id number] Univers 12:30:00 23:59:00 Encounter Israel Singletary 350.1.13.10 ity of [address]2.686 Jelani as [phone] [address] 2020-07-14 2020-07-14 Outpatient O DILCIA [facility] [id number] Univers 12:30:00 12:30:00 JERONIMO [facility] 2020-07-07 2020-07-07 Israel Tang 1.2.840.114 [id number] Univers 12:30:00 23:59:00 Encounter Jeronimo Ha 350.1 .13.10 ity of [place] [address].2.7.2.686 Jelani as [phone] [facility] [address] 2020-07-07 2020-07-07 Outpatient R ISRAEL SINGLETARY [facility] [id number] Univers 12:30:00 12:30:[facility]-07 2020-07-07 Orders Doctor ASHTYN 1.2.840.114 [id number] Univers 00:00:00 00:00:00 Only Unassigned, MADDISON 350.1.13.10 ity of [place] [facility] 4.2.7.2.686 Jelani as [phone] [facility] [address] 2020-06-28 2020-06-30 Hospital Israel Singletary 1.2.840.114 [id number] Univers 13:43:00 15:35:00 Encounter Maddison 350.1.13.10 ity of [facility] 4.2.7.2.686 Jelani as [phone] [facility] [address] [place] 2020-06-28 2020-06-28 Outpatient U ISRAEL SINGLETARY [facility] [id number] Univers 13:43:00 13:43:00 [facility] Results Test Description Test Time Test Comments Results Result Comments Source Fungus culture 2022-05-12 12:16:00 Test Item Value Reference Range Interpretation Comme nts Fungus culture isolate No growth after 4 weeks of Specimen InformationSpecimen (test code = 580-1) incubation. 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 Source: FluidSp ecimen 02268-1) Site: Leg,Lower : Left lower leg fluid (swab) for cultures [facility] [id number] 14:18:00 Test Item Value Reference Range Interpretation Comments Aerobic culture No growth Specimen isolate (test after 3 days. InformationSp ecimen code = 84405-6) Source: Flui dSpecimen Site: Leg,Lower : Left lower leg fluid (swab) for cultures [facility] [id number] 20:11:00 Test Item Value Reference Range Interpretation Comments Fungus smear No fungi Specimen (test code = observed. InformationSpec imen Source: 1443) FluidSpecimen S ite: Leg,Lower: Left lower leg fluid (swab) fo r cultures [facility] [id number] 18:41:00 Test Item Value Reference Range Interpretation Comments AFB stain No acid fast Specimen (test code = bacilli (AFB) InformationSpe cimen 676-7) seen. Source: FluidS ecimen Site: Leg,Lower : Left lower leg fluid (swab) for cultures [facility] [id number] 15:37:00 Test Item Value Reference Range Interpretation Comments Gram stain No WBC's or Specimen isolate (test organisms seen. Information Specimen code = 1469) Source: FluidSp ecimen Site: Leg,Lower : Left lower leg fluid (swab) for cultures [facility] 12 [id number] 02:05:49 Test Item Value Reference Range Interpretation Comments Ventricular rate (test code = 253) Atrial rate (test code = 255) ND interval (test code = 266) QRSD interval (test code = 260) QT interval (test code = 264) QTC interval (test code = 265) P axis 1 (test code = 267) QRS axis 1 (test code = 268) T wave axis (test code = 270) EKG impression (test Sinus rhythm with 1st code = 273) degree AV block-Nonspecific T wave abnormality-Prolonged QT-Abnormal ECG-No previous ECGs available-Electronica lly Signed By Arcenio Arce MD ([id number]) on 04/03/2022 9:05:47 PM [facility] GLUCOSE (AUTOMATED)2022-02-24 13:02:29 Test Item Value Reference Range Interpretation Comments POCT GLU (test code = 4614601405) 230 mg/dL 70-110 H Lab Interpretation (test code = Abnormal 58690-4) [facility] GLUCOSE (AUTOMATED)2022-02-24 13:02:29 Test Item Value Reference Range Interpretation Comments POCT GLU (test code = 3183634735) 230 mg/dL 70-110 H Lab Interpretation (test code = Abnormal 55144-9) [facility] GLUCOSE (AUTOMATED)2022-01-12 11:59:58 Test Item Value Reference Range Interpretation Comments POCT GLU (test code = 8433053843) 142 mg/dL 70-110 H Lab Interpretation (test code = Abnormal 41560-2) [facility] GLUCOSE (AUTOMATED)2022-01-12 11:59:58 Test Item Value Reference Range Interpretation Comments POCT GLU (test code = 6903237966) 142 mg/dL 70-110 H Lab Interpretation (test code = Abnormal 19922-9) [facility] ADULT OT - [id number] 00:00:00Consult received and chart reviewed via [employer]. ?Please refer to progress note for details. Dee Dee [phone] pgr.[facility] ADULT OT - [id number] 00:00:00Pt seen in burn clinic on 02/21/2021. Please see note for details. DEBORAH Ferrer, [facility] GLUCOSE (AUTOMATED)2020-12-03 16:51:53 Test Item Value Reference Range Interpretation Comments POCT GLU (test code = 9213645552) 107 mg/dL 70-110 Lab Interpretation (test code = Normal 82805-1) [facility] GLUCOSE (AUTOMATED)2020-12-03 13:41:11 Test Item Value Reference Range Interpretation Comments POCT GLU (test code = 0959487639) 145 mg/dL 70-110 H Lab Interpretation (test code = Abnormal 63772-9) [facility] GLUCOSE (AUTOMATED)2020-12-03 02:06:21 Test Item Value Reference Range Interpretation Comments POCT GLU (test code = 0710690770) 190 mg/dL 70-110 H Lab Interpretation (test code = Abnormal 30505-7) [facility] GLUCOSE (AUTOMATED)2020-12-02 21:47:51 Test Item Value Reference Range Interpretation Comments POCT GLU (test code = 3719884707) 98 mg/dL 70-110 Lab Interpretation (test code = Normal 84111-0) [facility] 20:58:32 Test Item Value Reference Range Interpretation Comments POCT GLU (test code = 5462585360) 93 mg/dL 70-110 Lab Interpretation (test code = Normal 72797-0) [facility] [id number] 18:37:40 Test Item Value Reference Range Interpretation Comments Case Report (test code Surgical Pathology ? ? = [id number]) ?Case: [id number] ? Authorizing Provider: ?Jeronimo Ha MD Collected: ? 11/25/2020 1403 ?Ordering Location: ? ? [facility] OR ? Received: ?11/26/2020 0935 ? Department ? Pathologist: ? Raeann Smith MD PHD ?Specimen: ? ?LEG, LEFT, BELOW KNEE ? Final Diagnosis (test h6ygwRMqDSDpl2taORAxuV code = 8994022289) FuZzEwMzNcZnRuYmpcdWMx IHtccnRmMVxlcGljOTQwM1 ouwzAxKHGhhXCyV9Fjtsio GBuvIC6aJL8ygNwsnLOnfQ VuZZUqAuLdr2qbk623gPLj v6bgEOIMwhqerHn5yFauE0 0uf3M2IlwrS73fkSWiDVY9 EMAmWZEzzXXtAVMzGGT7SA DirACdS3ruXYEqGM0goqja BGqkBEizQRUzcHP8VWCkzF RzP8QnAFHsZUgpICDyrfi4 BgVzCd2sdSGuzBgxBMsvAY JkXHBsYWluXGZzMjBccGFy IEEuIExFRywgTEVGVCwgQk LQQ5shD51HGGKLMKKOLGQI PH4SUffpTEAuDERhKB5xEc 4KWFFKCUAYJACXFu1HRCMr S5OIPU0RXGFMCBRABdPjqW SgTKKnYNWjVCRTDW7qG4lW LXQPEGUMKiSUWQ9JIDLYPJ DVE9SMDJ4CCmIXDQ7DTjZY L8AUHL7GV1ZXV7kVPIRzql AgICAgLSBWRVNTRUxTIFdJ TReaHSpKSFDDMhDQU4IGYe FURSBNRURJQUwgSFlQRVJU Ps9HIRqepHSyHUIoTLRnCC JWGLPGVAPBOFNOM8NKT94e NLSLE8cGNaBRXNXXFB5WOC 9TVEVPTVlFTElUSVNccGFy XHBhclxmMFxmczIyIEZhdG ltYSBJcWJhbCwgTUJCUyAg Dz0qRvScEmJeFFRgMeB0VX GBCNVqetakrbGiDDUpqz46 ATQ1PbQzr6M6IKJbHdLaBK LlDO9dkCrcTDZbWK8sAXTn B7pzrC8fppy9XvZpRQAlPm V2SUNgmqK8Faa2QSNvTRoi b5lxj9LqL3QkyOJdgOl3g1 nwCEYoBvN1oZMiAPydY5ic gdAfjYRtILWmPTt9hWvqHg VtMEWjx9bdrkImHeWaBUPf RQRuJMDjqDnvkkc3fL01AN BmwV8ofMFkHIjeagObHvV1 HYdeVBYcTaM3TZAjgZDcCO FtK1prQQSmGGmoGJBcXCfh lGAlLXP4cQcpx3D9cYShzZ UxwCdlVpLjVnRlPGIJo9Bd IOj3fVexB1MzDGSpYiZ6bW QgUGFyYWdyYXBoIEZvbnQ7 pT02TDpnquJ0kBYhy1Ydd7 6qb259uL4ndUCcHDY3CRTm DLIgiEKkFLXsAXC2DWOuhZ MlU0kpPBXkAA3bkqorMQdu MXirAEYwuPI7OTFouHUfX5 FyIHDlAHloRYDlpop1NmPm Vz1tgFRpcTzhYOfws7rzu9 scwBVoYcc3ALXmPsOyNrfg SBncq3Eif6zmWOImbb1aUT H5pTGvpVpkn7J7qPFyPPQq bCYxdgTkBJKjDwG4FZemTA 5yll00VEAlUQU0nu4vpWKx eUdwvxFhhVWsDZuuG8BmHX Rlt969ZKYmS7DeBRBde6I1 soCwQaLwYBLyiTU5myM5KF NkHKz6qSQygcP1piKzgJUx D0fipB2lCAQeVF8gjsshd9 snTNxkSTgnQJQqcDZ6hpK2 MONilNPdO5ZpkK5lAOWsUT ueZXGovyx0HrUnUs0hxNSa eTcyMFxzYmtwYWdlXHBnbm NvbnRccGduZGVjXHBsYWlu XHBsYWluXGYwXGZzMjRccW cabGttgK2pMgMkFpRuTKka BK9pQMMjB7oxfWTeFHVoRK EhA5dwCtVurJ9vzUshGLmo ZjJcZnMyMFxwYXIgSSBoYX ZlIHBlcnNvbmFsbHkgcmV2 tSD9KYIsJFciVBBrUBAbjY Bpig7xcGghDFJcOX6hOCLg nmOlJUbfcCdaWIjdRAZ6OX RlbWVudHMgbWFkZSBieSBy ZXNpZGVudHMsIGZlbGxvd3 Qze0SljOV5zS3fe3skw7Zp SZAxtUU1BW98unN8eA5uZT XpTQ7cKBFxDO3vrAGqhBWd SLOan21slRutezJsPVNzuq QuXHBsYWluXGYyXGZzMjhc bGFuZzEwMzNcaGljaFxmMl xfDuIlUWEzCRpnG3kgYnIc SkLeVHkeERD4uR== Clinical Information Burn [T30.0] (test code = 5561601781) Gross Description (test w1vqjRWxCPZmcMJPTLVmX7 code = 5552715800) cusuFvBELoqRVcT7Bamlic GScaJZ7rOC2giAjbfUMlkA GxVC1JEEDzXlVmVJHrhJUe guLrXdJgBOAxwZTegUW3RZ KzKM4rnawwJMhoECspOJEm zhQ5RVWxpKBgR3IvSWDgOP 4qpxowDMW7HZzeuB2uxzPE KtqfQs9ihQMlhMnnAhRrMx NoYXJzZXQwXGZuaWwgQXJp XLa9dU2JEqioGTG6OGVFVq vyDSXvNE6Rr2kgBLVesIDz AYD9VSiixDRlFLHxPUKhVM a8XFDoZUnvsMChWR9naLbs RatqiOktz0ZkpUJtTBczWM CrRFUvSRnbMPVmUU2WHyIs OVj0MvUePtPpCMf3LZc7TW 0CNgXlOIQrJRFxIqV9AnEd UOx9FPfcZL8QMSPuHrZ2Ba R7IGfqFSV2SbwoTEp8CFJy XFxmIEFyaWFsIFxcZnMgMT OwIGwhcLTlLB1lfBuhmHRx blxmczIwXHBhciANClxwbG FpblxlcGljTmVzdERvYzEg DQpcbHRycGFyXGxpbjBccm luMCANClxsdHJjaFxmczIy IFNwZWNpbWVuIEEgaXMgcm MbFFv5VNYzWlHot1quqY5m AHCtPNUfHurjbJE7BTUbAQ JhZyBsYWJlbGVkIHdpdGgg dGhlIHBhdGllbnQncyBuYW 6cWAVYAXRzbX5dCSFqGxnf WztlaDWblDqxOwOlm0zki2 8tLANwLTGkOCPeh65udMH9 hrInTfNoUAOwkk8goV6dNH RfuD10INSwWKGthwHhUUVl pQI6OHTdn99gQRFoa4JnmD wcfjDtLZImaL1qjQ5tvSRi bQAiQx23USSaFEJjVTRkYR QnSJF4yJ3fNSQ9AvptI51s NOaonUmbVQMlxLSorya3XV IjSD0zVEP8KOLibqVwGBN2 jI4hKO2lhtdkiv8qIJMjCL Psx4PnAe0hgTRhDTMzHhFz xrZormZ8vF20k1w2OVIfsR W8VEPlQFPumgYjiAbicbHw aXMgYSBZIHNoYXBlZCBwb2 9cqUbjlVNqeLAkNBL7yTFy ZKCmaG3zhGBqa33eTVDuQt JnbPD6QiXeH17nJTF7ZOYa DMVolkC7iN55ajVkjUP5iZ O8bZ5bFEGbcBLuAAAUrOMm mQfjoLIfVVDsf1HpaDairg VvCUUbqE7eWLk4NV5gmiHn YqGoN26fwJXpeGqbUDvxiK 0ehJncSALmvVPmrV0yTVEy yJ2pXH7sCRSaZwHxzHdtt3 DwHMDba1OehNwbjyRtXJGw qB3nGV4vVSBhHLVjgBI9kU XntvWkHRK5rT2yRO2ntmzy biBleHRlbmRzIDQuMCBjbS Epct46qE2eeZE1tfU6cVPe KC47HADex4Lzz0lseoJjrv Ftw76oaLB5yGWpsIGtzjGr ATK4dF9hBL7swrqsgg5cRY XyATMafjGybwfzcpJms4bj DFSfBQUvo0X8VSMug4V2NI BqGAJgoP4yWZg3NK9irqWe Mg95AKDrQYIpt4oybCBlSI SoSZOfBWDya9A6DCXxz6Qb r0jamzDjyhQhl76whRI0vU KenBPzuoPgBKD4hV7dFC9q qhoztd8iUC3cEJBnDPOmlQ DvnAWhFET9hgZuP6PzmDcj ikXayMSuIKBbdM1nDVRwmK qiCTQtmAYeLEetw9epsaIf Nd26EYqdKO75ZDKeYOE9jP R2KK8vQIW7axJuZEBsJzKs P76sMlZysWJ0nIGqmxJmtk BteJJsj5ivGQPyKUWhn8V9 WJTrm8C6IWDgIBUjM6Hts1 1zsNZnZ0whDTZwWLPfLk81 QGBkNSBgt53ejYlaNG7sBD Iwh9RrZy9zTJGwIEQbC7Mc y31bmRTeY4mxIcYzNPkgGR AggRRvwtQxpxK3iBFan6cc kdDnzzHnar6vg3d2CGYapg AgPPUhRNHaMO9nOFZoKZAr ljBfnqcaiyA7oYMxLGwhIT C4YGG6TEBkv8awIR9lWZT6 BK9df4jhXEQgZEM0wNEgaF 8ymMKsrC8eXQQnFhdhiSAh boMjimrncYEvD5ScH8yhsT LxDWGgDNBjSEMdQOTlrk92 hI9diOUjiIM6UTNql6Qjbr 1oyYXxYSSkeTufKCYed3Hy qAnaazNxKSJeaE7fWORLqJ YrxqEoX9YlIVFvXgTrLBzp xyUzssGfn9LknQOanMoaw4 VjdGlvbmVkIHRvIHJldmVh wDH1cAFiTQ78LXZod3ZbiI uaeEAnEMBmzNNsvYZlbK89 yjYrutOgtPIiw2YaxjpygU ghLVNyg0AgknhgbcL7tIIf ZTdmAAC2KGL8PLaxVETgfP DdFuavXDCaeaYls4hyd6Ey yEWknJ0bTEBjKPK2EC8ai5 lzLCBhbmQgdGhlIGRvcnNh bGlzIHBlZGlzIGFydGVyeS CfgJ53fqHihrLwrUUvx8Tz kb0lVZKpJFBpb02gPLtpKG CzL9Lln22bQRV5kkVdAXQk YWwgdGFuLXllbGxvdywgZm zenBB5zeVixOPxk4BdtFAm B0L6CNW0okWsO9ThGzOyDq KsnpJkQD57RHOcG9Xsi39v OQXmFQWchBTkkPU4DOQddA 4sPQOiLDCyYHMsgZphz5mw ZyBkZWNhbGNpZmljYXRpb2 9ws6DwFYTwUYWbWW3eRCW6 AzhoODJjWOlcyBGtZB2ZG5 IodPwiueGvk0PcJtofTRTd VCeFSOqyN44nhTQ8qSHhiB OgsyNpHKR0kJ9kGB2sobty ufxbbqSzrcBkPX04IVFbcg EiyRVhZX6MIZI9FDFufaEg tDEyit95UQTiVO1qwkdcVX Uko93lyLeihITiSQHug2Gg mMvvkmOgMUUfoC1eRZOokR Dty5GbuKN9pNCyFBMdp7rs w8zjyqbqFWVvOAyfmUDgA6 Z1mM7wDLYtggQHLkVbTlTV vcHlbkgkacFnujZdfW1baX PeqH7dPEInYbhhdIX2TLOh xKmybuTvbY1qpQOrWKXyd0 FcrYikfwOgKHDidS8gMIWx zKVizN8mAFJmcWClWIIvh6 Vqwiuyfi5bzTZkscumWUIv xXqah3bxVhQkFSWkzEKfCu tgKRRwj27ajCSrBN6WSLI8 ZPOagQZveK2hPLLsLAQnm5 L0CZEsx9NduMjsnPNaTNEz b2O6dUBtSKA4ucZnHABxEH 5kIGRvcnNhbGlzIHBlZGlz IGFydGVyeSwgcmVwcmVzZW 40KHEqtkLoGUNsiUFinZ3v DYBbrSJaPQGww2Rfjivrzv 1nuOCmfcikYH5tg7NhxITm nMBlgTQyiN7afivkVPncCP XamZivs4fuAeZdABJgyKCu UdvfZUXcb85mdXBaTX6RBL V8NSTmLAAuc2PeNROttZF2 JIHab04vq0j6AOU3btG1iU OqBK1sr3WaeTCieVEanUMf JRR5SGK9MGgpdQC8tjGmz7 lkZSBpbmtlZCBncmVlbikg KH4cLDWiUE69EYKouMhdBZ GvbQWsEFrat7coagevymGd txLgHS58SOJwdxLgfCXpFY 4DKOV3YGGgniPqyD3gVRCp sGkxRjQovrF7uR39xiUyiN E1oYJ8jI4yUXIvjRZxFJXz aNYse5PgfLD0lGGhIJSvs1 zqj9uijdeuTYUnTRqpeHKu E4S4bO1aHXBdofHBPexlJP JxFOsISNX7NOAkaqGxzLmq JLJRTC5TJCDjFZktAYSjjK TUIPV2FS3hJTdtxYFggzgs MRDyZ4JfP8EqeyOqvBVdTK RdcsGmb3wpZFP3QKYdzFKn jKZeUeHcVqtaSXO8FDeul5 fmBZA5CJKapVCczLIiKMus NwMwTyhqWVBiX5RgK1Okvk R9DQp9 Embedded Images (test code = 5620856615) [facility] GLUCOSE (AUTOMATED)2020-12-02 17:02:44 Test Item Value Reference Range Interpretation Comments POCT GLU (test code = 6994692547) 231 mg/dL 70-110 H Lab Interpretation (test code = Abnormal 52115-7) [facility] GLUCOSE (AUTOMATED)2020-12-02 13:03:06 Test Item Value Reference Range Interpretation Comments POCT GLU (test code = 2753268647) 141 mg/dL 70-110 H Lab Interpretation (test code = Abnormal 17723-6) [facility] GLUCOSE (AUTOMATED)2020-12-02 09:16:19 Test Item Value Reference Range Interpretation Comments POCT GLU (test code = 8981109368) 131 mg/dL 70-110 H Lab Interpretation (test code = Abnormal 76373-8) [facility] GLUCOSE (AUTOMATED)2020-12-02 05:46:13 Test Item Value Reference Range Interpretation Comments POCT GLU (test code = 0574702765) 164 mg/dL 70-110 H Lab Interpretation (test code = Abnormal 32643-6) [facility] GLUCOSE (AUTOMATED)2020-12-02 01:19:10 Test Item Value Reference Range Interpretation Comments POCT GLU (test code = 4700246667) 223 mg/dL 70-110 H Lab Interpretation (test code = Abnormal 42949-2) [facility] GLUCOSE (AUTOMATED)2020-12-01 21:52:18 Test Item Value Reference Range Interpretation Comments POCT GLU (test code = 6676921311) 175 mg/dL 70-110 H Lab Interpretation (test code = Abnormal 97599-5) [facility] GLUCOSE (AUTOMATED)2020-12-01 17:41:48 Test Item Value Reference Range Interpretation Comments POCT GLU (test code = 2528737825) 182 mg/dL 70-110 H Lab Interpretation (test code = Abnormal 93750-3) [facility] GLUCOSE (AUTOMATED)2020-12-01 13:12:53 Test Item Value Reference Range Interpretation Comments POCT GLU (test code = 5030981100) 147 mg/dL 70-110 H Lab Interpretation (test code = Abnormal 14090-7) [facility] GLUCOSE (AUTOMATED)2020-12-01 09:11:08 Test Item Value Reference Range Interpretation Comments POCT GLU (test code = 4429357441) 152 mg/dL 70-110 H Lab Interpretation (test code = Abnormal 45207-2) [facility] GLUCOSE (AUTOMATED)2020-12-01 05:43:59 Test Item Value Reference Range Interpretation Comments POCT GLU (test code = 7394329646) 148 mg/dL 70-110 H Lab Interpretation (test code = Abnormal 07419-7) [facility] 03:30:01 Test Item Value Reference Range Interpretation Comments PH (test code = 7.32-7.42 H 5962507672) PCO2 JIM (test code = See_Comment L [Auto mated [id number]) message] The sy stem which generated this result transmitted reference range : 41 - 51 mmHg. The reference range was not used to interpret this result as normal/abnormal . PO2 JIM (test code = See_Comment HH [Autom ated [id number]) message] The sy stem which generated this result transmitted reference range : 25 - 40 mmHg. The reference range was not used to interpret this result as normal/abnormal . HCO3 JIM (test code = See_Comment [Auto mated [id number]) message] The sy stem which generated this result transmitted reference range : 24 - 28 mEq/L. The reference range was not used to interpret this result as normal/abnormal . AC VBE(BEAKER) (test mEq/L code = 7800327649) THB JIM (test code = 8.6 g/dL 13.5-18.0 L 8153883883) %O2HB JIM (test code = 97.4 % 52.0-63.0 H 6321403047) %COHB JIM (test code = 0.4 % 0.0-1.5 5555743327) %METHB JIM (test code = 0.3 % 0.4-1.5 L 8719325265) VOL%O2 JIM (test code = 12.0 % 6.0-12.0 0509208696) NA (test code = 127 mmol/L 135-145 L 3929501614) K+ (test code = 10.9 mmol/L 3.5-5.0 HH 2824446804) AC CA IONZ (test code = 3.80 mg/dL 4.50-5.30 L 2273045854) GLUCOSE (test code = 101 mg/dL 70-110 0333585966) Lab Interpretation Abnormal (test code = 94719-5) [facility] GLUCOSE (AUTOMATED)2020-12-01 01:36:48 Test Item Value Reference Range Interpretation Comments POCT GLU (test code = 0690285087) 115 mg/dL 70-110 H Lab Interpretation (test code = Abnormal 08824-7) [facility] GLUCOSE (AUTOMATED)2020-11-30 21:12:04 Test Item Value Reference Range Interpretation Comments POCT GLU (test code = 2964357499) 138 mg/dL 70-110 H Lab Interpretation (test code = Abnormal 20189-0) [facility] GLUCOSE (AUTOMATED)2020-11-30 17:11:20 Test Item Value Reference Range Interpretation Comments POCT GLU (test code = 9451352005) 106 mg/dL 70-110 Lab Interpretation (test code = Normal 93828-1) [facility] GLUCOSE (AUTOMATED)2020-11-30 12:50:12 Test Item Value Reference Range Interpretation Comments POCT GLU (test code = 0423759488) 155 mg/dL 70-110 H Lab Interpretation (test code = Abnormal 37798-9) [facility] 11[facility]36:46 Test Item Value Reference Range Interpretation Comments MAGNESIUM (test code = 7911856782) 2.2 mg/dL 1.7-2.4 Lab Interpretation (test code = Normal 15291-7) [facility] 11:36:46 Test Item Value Reference Range Interpretation Comments PHOSPHORUS (test code = 5959974133) 4.2 mg/dL 2.5-5.0 Lab Interpretation (test code = Normal 24598-9) [facility] METABOLIC PANEL (NA, K, CL, CO2, GLUCOSE, BUN, CREATININE, CA)2020-11-30 11:36:41 Test Item Value Reference Range Interpretation Comments NA (test code = 135 mmol/L 135-145 6012225052) K (test code = 4.5 mmol/L 3.5-5.0 4024684653) CL (test code = 99 mmol/L 98-108 9566749285) CO2 TOTAL (test code = 27 mmol/L 23-31 2127850949) AGAP (test code = 2-16 7000574920) BUN (test code = 14 mg/dL 7-23 9265147583) GLUCOSE (test code = 150 mg/dL 70-110 H 6011351204) CREATININE (test code = 0.54 mg/dL 0.60-1.25 L 8922770194) CALCIUM (test code = 8.7 mg/dL 8.6-10.6 2299402395) eGFR (test code = mL/min/1.73m2 0452897711) PATTI (test code = PATTI) Association of Glomerular Filtration Rate (GFR) and Staging of Kidney Disease* + --+ --+ ------+| GFR (mL/min/1.73 m2) ?| With Kidney Damage ?| ?Without Kidney Damage+ --------+ --------+ +| ?>90 ?| ?Stage one ?| ? Normal ?+ ---+ ---+ -------+| ?60-89 ?| ?Stage two ?| ? Decreased GFR ? + --+ --+ ------+| ?30-59 ?| ?Stage three ?| ? Stage three ? + --+ --+ ------+| ?15-29 ?| ?Stage four ? | ? Stage four ?+ ---+ ---+ -------+| ?<15 (or dialysis) ? ?| ?Stage five ? | ? Stage five ?+ ---+ ---+ -------+ *Each stage assumes the associated GFR level has been in effect for at least three months. ?Stages 1 to 5, with or without kidney disease, indicate chronic kidney disease. Notes: Determination of stages one and two (with eGFR >59mL/min/1.73 m2) requires estimation of kidney damage for at least three months as defined by structural or functional abnormalities of the kidney, manifested by either:Pathological abnormalities or Markers of kidney damage (including abnormalities in the composition of the blood or urine or abnormalities in imaging tests). Lab Interpretation Abnormal (test code = 19550-3) [facility] WITH [id number] 10:47:00 Test Item Value Reference Range Interpretation Comments WBC (test code = See_Comment [Automated 6690-2) message] The sy stem which generated this result transmitted reference range : 4.20 - 10.70 10*3/?L. The reference range was not used to interpret this result as normal/abnormal . RBC (test code = See_Comment L [Automated 789-8) message] The sy stem which generated this result transmitted reference range : 4.26 - 5.52 10*6/?L. The reference range was not used to interpret this result as normal/abnormal . HGB (test code = 8.1 g/dL 12.2-16.4 L 718-7) HCT (test code = 24.4 % 38.4-49.3 L 4544-3) MCV (test code = 86.2 fL 81.7-95.6 787-2) MCH (test code = 28.6 pg 26.1-32.7 785-6) MCHC (test code = 33.2 g/dL 31.2-35.0 786-4) RDW-SD (test code = 41.1 fL 38.5-51.6 98363-6) RDW-CV (test code = 12.9 % 12.1-15.4 788-0) PLT (test code = See_Comment H [Automated 777-3) message] The sy stem which generated this result transmitted reference range : 150 - 328 10*3/ ?L. The reference r ivett was not used to interpret this result as normal/abnormal . MPV (test code = 8.7 fL 9.8-13.0 L 43737-8) NRBC/100 WBC (test See_Comment [Automat ed code = 5373878382) message] The system which generated this result transmitted reference range : 0.0 - 10.0 /100 WBCs. The refer ence range was not u sed to interpret th is result as normal/abnormal . NRBC x10^3 (test code <0.01 See_Comment [Auto mated = 8146603078) message] The s ystem which generated this result transmitted reference range : 10*3/?L. The reference range was not used to interpret this result as normal/abnormal . GRAN MAT (NEUT) % 57.2 % (test code = 770-8) IMM GRAN % (test code 0.40 % = 1666644115) LYMPH % (test code = 28.7 % 736-9) MONO % (test code = 8.6 % 5905-5) EOS % (test code = 4.7 % 713-8) BASO % (test code = 0.4 % 706-2) GRAN MAT x10^3(ANC) 4.05 10*3/uL 1.99-6.95 (test code = 1886656791) IMM GRAN x10^3 (test 0.03 10*3/uL 0.00-0.06 code = 7967310820) LYMPH x10^3 (test code 2.03 10*3/uL 1.09-3.23 = 731-0) MONO x10^3 (test code 0.61 10*3/uL 0.36-1.02 = 742-7) EOS x10^3 (test code = 0.33 10*3/uL 0.06-0.53 711-2) BASO x10^3 (test code 0.03 10*3/uL 0.01-0.09 = 704-7) Lab Interpretation Abnormal (test code = 18568-0) [facility] GLUCOSE (AUTOMATED)2020-11-30 10:34:49 Test Item Value Reference Range Interpretation Comments POCT GLU (test code = 5109953048) 155 mg/dL 70-110 H Lab Interpretation (test code = Abnormal 13555-7) [facility] GLUCOSE (AUTOMATED)2020-11-30 05:00:58 Test Item Value Reference Range Interpretation Comments POCT GLU (test code = 3633872140) 173 mg/dL 70-110 H Lab Interpretation (test code = Abnormal 02598-8) [facility] GLUCOSE (AUTOMATED)2020-11-30 01:10:26 Test Item Value Reference Range Interpretation Comments POCT GLU (test code = 2233711750) 187 mg/dL 70-110 H Lab Interpretation (test code = Abnormal 94476-2) [facility] GLUCOSE (AUTOMATED)2020-11-29 22:17:29 Test Item Value Reference Range Interpretation Comments POCT GLU (test code = 8184580738) 221 mg/dL 70-110 H Lab Interpretation (test code = Abnormal 49942-8) [facility] GLUCOSE (AUTOMATED)2020-11-29 16:59:28 Test Item Value Reference Range Interpretation Comments POCT GLU (test code = 3091265550) 249 mg/dL 70-110 H Lab Interpretation (test code = Abnormal 94025-8) [facility] GLUCOSE (AUTOMATED)2020-11-29 13:59:19 Test Item Value Reference Range Interpretation Comments POCT GLU (test code = 8506332773) 229 mg/dL 70-110 H Lab Interpretation (test code = Abnormal 43129-6) [facility] GLUCOSE (AUTOMATED)2020-11-29 01:13:11 Test Item Value Reference Range Interpretation Comments POCT GLU (test code = 9440244040) 206 mg/dL 70-110 H Lab Interpretation (test code = Abnormal 37561-0) [facility] GLUCOSE (AUTOMATED)2020-11-28 22:29:12 Test Item Value Reference Range Interpretation Comments POCT GLU (test code = 4369475106) 168 mg/dL 70-110 H Lab Interpretation (test code = Abnormal 60349-0) [facility] GLUCOSE (AUTOMATED)2020-11-28 17:24:28 Test Item Value Reference Range Interpretation Comments POCT GLU (test code = 7458117082) 213 mg/dL 70-110 H Lab Interpretation (test code = Abnormal 24877-0) [facility] GLUCOSE (AUTOMATED)2020-11-28 14:44:51 Test Item Value Reference Range Interpretation Comments POCT GLU (test code = 5799802324) 192 mg/dL 70-110 H Lab Interpretation (test code = Abnormal 62248-6) [facility] GLUCOSE (AUTOMATED)2020-11-28 13:19:39 Test Item Value Reference Range Interpretation Comments POCT GLU (test code = 5134695698) 188 mg/dL 70-110 H Lab Interpretation (test code = Abnormal 86175-7) [facility] 10[facility]43:33 Test Item Value Reference Range Interpretation Comments PHOSPHORUS (test code = 8389888515) 3.7 mg/dL 2.5-5.0 Lab Interpretation (test code = Normal 55364-7) [facility] 10:43:33 Test Item Value Reference Range Interpretation Comments MAGNESIUM (test code = 9784600886) 2.1 mg/dL 1.7-2.4 Lab Interpretation (test code = Normal 12216-3) [facility] (NA, K, CL, CO2, GLUCOSE, BUN, CREATININE, CA)2020-11-28 10:43:33 Test Item Value Reference Range Interpretation Comments NA (test code = 133 mmol/L 135-145 L 6498038777) K (test code = 4.1 mmol/L 3.5-5.0 3518198795) CL (test code = 99 mmol/L 98-108 0416393958) CO2 TOTAL (test code = 27 mmol/L 23-31 6809846816) AGAP (test code = 2-16 6222772304) BUN (test code = 13 mg/dL 7-23 9574356413) GLUCOSE (test code = 143 mg/dL 70-110 H 7332928858) CREATININE (test code = 0.47 mg/dL 0.60-1.25 L 0097807998) CALCIUM (test code = 8.8 mg/dL 8.6-10.6 4426977032) eGFR (test code = mL/min/1.73m2 9646249634) PATTI (test code = PATTI) Association of Glomerular Filtration Rate (GFR) and Staging of Kidney Disease* + --+ --+ ------+| GFR (mL/min/1.73 m2) ?| With Kidney Damage ?| ?Without Kidney Damage+ --------+ --------+ +| ?>90 ?| ?Stage one ?| ? Normal ?+ ---+ ---+ -------+| ?60-89 ?| ?Stage two ?| ? Decreased GFR ? + --+ --+ ------+| ?30-59 ?| ?Stage three ?| ? Stage three ? + --+ --+ ------+| ?15-29 ?| ?Stage four ? | ? Stage four ?+ ---+ ---+ -------+| ?<15 (or dialysis) ? ?| ?Stage five ? | ? Stage five ?+ ---+ ---+ -------+ *Each stage assumes the associated GFR level has been in effect for at least three months. ?Stages 1 to 5, with or without kidney disease, indicate chronic kidney disease. Notes: Determination of stages one and two (with eGFR >59mL/min/1.73 m2) requires estimation of kidney damage for at least three months as defined by structural or functional abnormalities of the kidney, manifested by either:Pathological abnormalities or Markers of kidney damage (including abnormalities in the composition of the blood or urine or abnormalities in imaging tests). Lab Interpretation Abnormal (test code = 04364-8) [facility] WITH [id number] 10:22:30 Test Item Value Reference Range Interpretation Comments WBC (test code = See_Comment H [Automated 6690-2) message] The sy stem which generated this result transmitted reference range : 4.20 - 10.70 10*3/?L. The reference range was not used to interpret this result as normal/abnormal . RBC (test code = See_Comment L [Automated 789-8) message] The sy stem which generated this result transmitted reference range : 4.26 - 5.52 10*6/?L. The reference range was not used to interpret this result as normal/abnormal . HGB (test code = 8.4 g/dL 12.2-16.4 L 718-7) HCT (test code = 25.4 % 38.4-49.3 L 4544-3) MCV (test code = 86.4 fL 81.7-95.6 787-2) MCH (test code = 28.6 pg 26.1-32.7 785-6) MCHC (test code = 33.1 g/dL 31.2-35.0 786-4) RDW-SD (test code = 41.5 fL 38.5-51.6 89453-7) RDW-CV (test code = 13.4 % 12.1-15.4 788-0) PLT (test code = See_Comment H [Automated 777-3) message] The sy stem which generated this result transmitted reference range : 150 - 328 10*3/ ?L. The reference r ivett was not used to interpret this result as normal/abnormal . MPV (test code = 8.7 fL 9.8-13.0 L 43424-7) NRBC/100 WBC (test See_Comment [Automat ed code = 8881553632) message] The system which generated this result transmitted reference range : 0.0 - 10.0 /100 WBCs. The refer ence range was not u sed to interpret th is result as normal/abnormal . NRBC x10^3 (test code <0.01 See_Comment [Auto mated = 4492737234) message] The s ystem which generated this result transmitted reference range : 10*3/?L. The reference range was not used to interpret this result as normal/abnormal . GRAN MAT (NEUT) % 67.6 % (test code = 770-8) IMM GRAN % (test code 0.70 % = 5291362030) LYMPH % (test code = 20.2 % 736-9) MONO % (test code = 9.1 % 5905-5) EOS % (test code = 1.9 % 713-8) BASO % (test code = 0.5 % 706-2) GRAN MAT x10^3(ANC) 7.89 10*3/uL 1.99-6.95 H (test code = 2739345977) IMM GRAN x10^3 (test 0.08 10*3/uL 0.00-0.06 H code = 6391709591) LYMPH x10^3 (test code 2.35 10*3/uL 1.09-3.23 = 731-0) MONO x10^3 (test code 1.06 10*3/uL 0.36-1.02 H = 742-7) EOS x10^3 (test code = 0.22 10*3/uL 0.06-0.53 711-2) BASO x10^3 (test code 0.06 10*3/uL 0.01-0.09 = 704-7) Lab Interpretation Abnormal (test code = 55453-1) [facility] GLUCOSE (AUTOMATED)2020-11-28 10:04:16 Test Item Value Reference Range Interpretation Comments POCT GLU (test code = 4005095271) 158 mg/dL 70-110 H Lab Interpretation (test code = Abnormal 30297-7) [facility] GLUCOSE (AUTOMATED)2020-11-28 05:47:03 Test Item Value Reference Range Interpretation Comments POCT GLU (test code = 0050818798) 194 mg/dL 70-110 H Lab Interpretation (test code = Abnormal 77363-6) [facility] GLUCOSE (AUTOMATED)2020-11-28 02:08:02 Test Item Value Reference Range Interpretation Comments POCT GLU (test code = 0632979722) 224 mg/dL 70-110 H Lab Interpretation (test code = Abnormal 48890-2) [facility] GLUCOSE (AUTOMATED)2020-11-27 21:35:05 Test Item Value Reference Range Interpretation Comments POCT GLU (test code = 4710087568) 115 mg/dL 70-110 H Lab Interpretation (test code = Abnormal 91558-9) [facility] GLUCOSE (AUTOMATED)2020-11-27 16:47:40 Test Item Value Reference Range Interpretation Comments POCT GLU (test code = 8635675681) 116 mg/dL 70-110 H Lab Interpretation (test code = Abnormal 49325-0) [facility] [id number] 16:28:11 Test Item Value Reference Range Interpretation Comments PROTIME PATIENT (test See_Comment H [Auto mated message] code = 5964-2) The system [employer] generated this result transmitted ref erence range: 10.1 - 1 2.6 Seconds. The reference range was not used to int erpret this result as normal/abnormal . INR (test code = 6301-6) Nor mal INR <1.1; Warfarin Therap eutic range 2.0 to 3. 0 or 2.5 to 3.5, dep ending upon the indica tions. Lab Interpretation (test Abnormal code = 44691-8) [facility] [id number] 16:28:11 Test Item Value Reference Range Interpretation Comments APTT Patient (test code = See_Comment [ Automated message] 3173-2) The system [employer] generated this result transmitted ref erence range: 26 - 36 Seconds. The re ference range was not u sed to interpret this result as normal/abnor mal. Lab Interpretation (test Normal code = 20977-2) [facility] 16:28:11 Test Item Value Reference Range Interpretation Comments Fibrinogen (test code = 9343157897) 702 mg/dL 167-453 H Lab Interpretation (test code = Abnormal 36008-4) [facility] P[facility] RBC (in units), 1 Units 2020-11-27 15:48:00 Test Item Value Reference Range Interpretation Comments Cross Match Result Compatible (test code = 4409) ISBT Blood Type Code (test code = 687295) Unit Blood Type (test A Pos code = 4410) Unit Number (test [id number] code = 4411) Blood Expiration Date & Time (test code = 499381) Status Information Issued (test code = 4412) Product Red Blood Cells Identification (test code = 4413) Product Code (test [id number] Performed at [facility] code = 4414) Laboratory Services - [facility] Blood [address] [place] [address] 113[address]Lyhx Free: [phone] A No. [id number] [facility] (NA, K, CL, CO2, GLUCOSE, BUN, CREATININE, CA)2020-11-27 12:38:16 Test Item Value Reference Range Interpretation Comments NA (test code = 134 mmol/L 135-145 L 7313546074) K (test code = 3.7 mmol/L 3.5-5.0 6525911737) CL (test code = 102 mmol/L 98-108 1827130930) CO2 TOTAL (test code = 27 mmol/L 23-31 4253254045) AGAP (test code = 2-16 7661405346) BUN (test code = 13 mg/dL 7-23 7833591231) GLUCOSE (test code = 134 mg/dL 70-110 H 2009122527) CREATININE (test code = 0.53 mg/dL 0.60-1.25 L 7551951030) CALCIUM (test code = 8.4 mg/dL 8.6-10.6 L 5685944449) eGFR (test code = mL/min/1.73m2 9731565587) PATTI (test code = PATTI) Association of Glomerular Filtration Rate (GFR) and Staging of Kidney Disease* + --+ --+ ------+| GFR (mL/min/1.73 m2) ?| With Kidney Damage ?| ?Without Kidney Damage+ --------+ --------+ +| ?>90 ?| ?Stage one ?| ? Normal ?+ ---+ ---+ -------+| ?60-89 ?| ?Stage two ?| ? Decreased GFR ? + --+ --+ ------+| ?30-59 ?| ?Stage three ?| ? Stage three ? + --+ --+ ------+| ?15-29 ?| ?Stage four ? | ? Stage four ?+ ---+ ---+ -------+| ?<15 (or dialysis) ? ?| ?Stage five ? | ? Stage five ?+ ---+ ---+ -------+ *Each stage assumes the associated GFR level has been in effect for at least three months. ?Stages 1 to 5, with or without kidney disease, indicate chronic kidney disease. Notes: Determination of stages one and two (with eGFR >59mL/min/1.73 m2) requires estimation of kidney damage for at least three months as defined by structural or functional abnormalities of the kidney, manifested by either:Pathological abnormalities or Markers of kidney damage (including abnormalities in the composition of the blood or urine or abnormalities in imaging tests). Lab Interpretation Abnormal (test code = 38801-5) [facility] 12:38:16 Test Item Value Reference Range Interpretation Comments MAGNESIUM (test code = 2642736846) 2.1 mg/dL 1.7-2.4 Lab Interpretation (test code = Normal 90655-5) [facility] 12:38:16 Test Item Value Reference Range Interpretation Comments PHOSPHORUS (test code = 4994204653) 3.5 mg/dL 2.5-5.0 Lab Interpretation (test code = Normal 24390-7) [facility]2020-11-27 12:36:55 Test Item Value Reference Range Interpretation Comments POCT GLU (test code = 3023397248) 147 mg/dL 70-110 H Lab Interpretation (test code = Abnormal 05841-2) [facility] GLUCOSE (AUTOMATED)2020-11-27 12:32:46 Test Item Value Reference Range Interpretation Comments POCT GLU (test code = 8669364251) 198 mg/dL 70-110 H Lab Interpretation (test code = Abnormal 10763-4) [facility] GLUCOSE (AUTOMATED)2020-11-27 12:32:46 Test Item Value Reference Range Interpretation Comments POCT GLU (test code = 3370167618) 168 mg/dL 70-110 H Lab Interpretation (test code = Abnormal 98424-6) [facility] GLUCOSE (AUTOMATED)2020-11-27 12:32:46 Test Item Value Reference Range Interpretation Comments POCT GLU (test code = 9127246727) 178 mg/dL 70-110 H Lab Interpretation (test code = Abnormal 28730-1) [facility] WITH [id number] 12:09:19 Test Item Value Reference Range Interpretation Comments WBC (test code = See_Comment H [Automated 6690-2) message] The sy stem which generated this result transmitted reference range : 4.20 - 10.70 10*3/?L. The reference range was not used to interpret this result as normal/abnormal . RBC (test code = See_Comment L [Automated 789-8) message] The sy stem which generated this result transmitted reference range : 4.26 - 5.52 10*6/?L. The reference range was not used to interpret this result as normal/abnormal . HGB (test code = 7.1 g/dL 12.2-16.4 L 718-7) HCT (test code = 21.5 % 38.4-49.3 L 4544-3) MCV (test code = 86.7 fL 81.7-95.6 787-2) MCH (test code = 28.6 pg 26.1-32.7 785-6) MCHC (test code = 33.0 g/dL 31.2-35.0 786-4) RDW-SD (test code = 42.7 fL 38.5-51.6 13059-4) RDW-CV (test code = 13.7 % 12.1-15.4 788-0) PLT (test code = See_Comment H [Automated 777-3) message] The sy stem which generated this result transmitted reference range : 150 - 328 10*3/ ?L. The reference r ivett was not used to interpret this result as normal/abnormal . MPV (test code = 8.7 fL 9.8-13.0 L 26864-2) NRBC/100 WBC (test See_Comment [Automat ed code = 9510019463) message] The system which generated this result transmitted reference range : 0.0 - 10.0 /100 WBCs. The refer ence range was not u sed to interpret th is result as normal/abnormal . NRBC x10^3 (test code <0.01 See_Comment [Auto mated = 8203923461) message] The s ystem which generated this result transmitted reference range : 10*3/?L. The reference range was not used to interpret this result as normal/abnormal . GRAN MAT (NEUT) % 69.3 % (test code = 770-8) IMM GRAN % (test code 0.50 % = 6031618354) LYMPH % (test code = 18.9 % 736-9) MONO % (test code = 9.8 % 5905-5) EOS % (test code = 1.2 % 713-8) BASO % (test code = 0.3 % 706-2) GRAN MAT x10^3(ANC) 8.08 10*3/uL 1.99-6.95 H (test code = 0689873286) IMM GRAN x10^3 (test 0.06 10*3/uL 0.00-0.06 code = 5183138961) LYMPH x10^3 (test code 2.21 10*3/uL 1.09-3.23 = 731-0) MONO x10^3 (test code 1.15 10*3/uL 0.36-1.02 H = 742-7) EOS x10^3 (test code = 0.14 10*3/uL 0.06-0.53 711-2) BASO x10^3 (test code 0.04 10*3/uL 0.01-0.09 = 704-7) Lab Interpretation Abnormal (test code = 43451-7) [facility] GLUCOSE (AUTOMATED)2020-11-26 22:17:37 Test Item Value Reference Range Interpretation Comments POCT GLU (test code = 7120278902) 143 mg/dL 70-110 H Lab Interpretation (test code = Abnormal 15311-8) [facility] RBC (in units), 1 Units 2020-11-26 21:47:27 Test Item Value Reference Range Interpretation Comments Cross Match Result Compatible (test code = 4409) ISBT Blood Type Code (test code = 932922) Unit Blood Type (test O Neg code = 4410) Unit Number (test [id number] code = 4411) Blood Expiration Date & Time (test code = 465165) Status Information Issued (test code = 4412) Product Red Blood Cells Identification (test code = 4413) Product Code (test [id number] Performed at [facility] code = 4414) Laboratory Services - [facility] Blood [address] [address]Fcmp Free: [phone] A No. [id number] [facility] GLUCOSE (AUTOMATED)2020-11-26 20:49:18 Test Item Value Reference Range Interpretation Comments POCT GLU (test code = 6434723144) 108 mg/dL 70-110 Lab Interpretation (test code = Normal 84976-7) [facility] GLUCOSE (AUTOMATED)2020-11-26 20:49:18 Test Item Value Reference Range Interpretation Comments POCT GLU (test code = 9348543725) 108 mg/dL 70-110 Lab Interpretation (test code = Normal 61991-0) [facility] (NA, K, CL, CO2, GLUCOSE, BUN, CREATININE, CA)2020-11-26 19:55:19 Test Item Value Reference Range Interpretation Comments NA (test code = 133 mmol/L 135-145 L 8034083948) K (test code = 4.3 mmol/L 3.5-5.0 0406748383) CL (test code = 100 mmol/L 98-108 2432747716) CO2 TOTAL (test code = 28 mmol/L 23-31 2605825997) AGAP (test code = 2-16 3980865293) BUN (test code = 11 mg/dL 7- 6899539171) GLUCOSE (test code = 63 mg/dL 70-110 L 5705863481) CREATININE (test code = 0.69 mg/dL 0.60-1.25 0616804371) CALCIUM (test code = 8.5 mg/dL 8.6-10.6 L 0681544795) eGFR (test code = mL/min/1.73m2 7871667936) PATTI (test code = PATTI) Association of Glomerular Filtration Rate (GFR) and Staging of Kidney Disease* + --+ --+ ------+| GFR (mL/min/1.73 m2) ?| With Kidney Damage ?| ?Without Kidney Damage+ --------+ --------+ +| ?>90 ?| ?Stage one ?| ? Normal ?+ ---+ ---+ -------+| ?60-89 ?| ?Stage two ?| ? Decreased GFR ? + --+ --+ ------+| ?30-59 ?| ?Stage three ?| ? Stage three ? + --+ --+ ------+| ?15-29 ?| ?Stage four ? | ? Stage four ?+ ---+ ---+ -------+| ?<15 (or dialysis) ? ?| ?Stage five ? | ? Stage five ?+ ---+ ---+ -------+ *Each stage assumes the associated GFR level has been in effect for at least three months. ?Stages 1 to 5, with or without kidney disease, indicate chronic kidney disease. Notes: Determination of stages one and two (with eGFR >59mL/min/1.73 m2) requires estimation of kidney damage for at least three months as defined by structural or functional abnormalities of the kidney, manifested by either:Pathological abnormalities or Markers of kidney damage (including abnormalities in the composition of the blood or urine or abnormalities in imaging tests). Lab Interpretation Abnormal (test code = 92666-2) [facility] 19:55:19 Test Item Value Reference Range Interpretation Comments MAGNESIUM (test code = 5051944859) 1.9 mg/dL 1.7-2.4 Lab Interpretation (test code = Normal 33226-2) [facility] 19:55:19 Test Item Value Reference Range Interpretation Comments PHOSPHORUS (test code = 6073262055) 3.6 mg/dL 2.5-5.0 Lab Interpretation (test code = Normal 24824-4) [facility] METABOLIC PANEL (NA, K, CL, CO2, GLUCOSE, BUN, CREATININE, CA)2020-11-26 19:55:19 Test Item Value Reference Range Interpretation Comments NA (test code = 133 mmol/L 135-145 L 9711154901) K (test code = 4.3 mmol/L 3.5-5.0 6290425657) CL (test code = 100 mmol/L 98-108 8204908528) CO2 TOTAL (test code = 28 mmol/L 23-31 1185880256) AGAP (test code = 2-16 2288642181) BUN (test code = 11 mg/dL 7-23 1888496815) GLUCOSE (test code = 63 mg/dL 70-110 L 0380120312) CREATININE (test code = 0.69 mg/dL 0.60-1.25 4351741684) CALCIUM (test code = 8.5 mg/dL 8.6-10.6 L 2266116919) eGFR (test code = mL/min/1.73m2 [id number]) PATTI (test code = PATTI) Association of Glomerular Filtration Rate (GFR) and Staging of Kidney Disease* + --+ --+ ------+| GFR (mL/min/1.73 m2) ?| With Kidney Damage ?| ?Without Kidney Damage+ --------+ --------+ +| ?>90 ?| ?Stage one ?| ? Normal ?+ ---+ ---+ -------+| ?60-89 ?| ?Stage two ?| ? Decreased GFR ? + --+ --+ ------+| ?30-59 ?| ?Stage three ?| ? Stage three ? + --+ --+ ------+| ?15-29 ?| ?Stage four ? | ? Stage four ?+ ---+ ---+ -------+| ?<15 (or dialysis) ? ?| ?Stage five ? | ? Stage five ?+ ---+ ---+ -------+ *Each stage assumes the associated GFR level has been in effect for at least three months. ?Stages 1 to 5, with or without kidney disease, indicate chronic kidney disease. Notes: Determination of stages one and two (with eGFR >59mL/min/1.73 m2) requires estimation of kidney damage for at least three months as defined by structural or functional abnormalities of the kidney, manifested by either:Pathological abnormalities or Markers of kidney damage (including abnormalities in the composition of the blood or urine or abnormalities in imaging tests). Lab Interpretation Abnormal (test code = 65104-6) [facility] Test Item Value Reference Range Interpretation Comments MAGNESIUM (test code = 3294828470) 1.9 mg/dL 1.7-2.4 Lab Interpretation (test code = Normal 07056-7) [facility]55[facility]19 Test Item Value Reference Range Interpretation Comments PHOSPHORUS (test code = 2563055710) 3.6 mg/dL 2.5-5.0 Lab Interpretation (test code = Normal 44280-3) [facility] WITH [id number] 19:34:33 Test Item Value Reference Range Interpretation Comments WBC (test code = See_Comment H [Automated 6690-2) message] The sy stem which generated this result transmitted reference range : 4.20 - 10.70 10*3/?L. The reference range was not used to interpret this result as normal/abnormal . RBC (test code = See_Comment L [Automated 789-8) message] The sy stem which generated this result transmitted reference range : 4.26 - 5.52 10*6/?L. The reference range was not used to interpret this result as normal/abnormal . HGB (test code = 7.0 g/dL 12.2-16.4 L 718-7) HCT (test code = 21.6 % 38.4-49.3 L 4544-3) MCV (test code = 87.4 fL 81.7-95.6 787-2) MCH (test code = 28.3 pg 26.1-32.7 785-6) MCHC (test code = 32.4 g/dL 31.2-35.0 786-4) RDW-SD (test code = 43.2 fL 38.5-51.6 10984-3) RDW-CV (test code = 13.6 % 12.1-15.4 788-0) PLT (test code = See_Comment H [Automated 777-3) message] The sy stem which generated this result transmitted reference range : 150 - 328 10*3/ ?L. The reference r ivett was not used to interpret this result as normal/abnormal . MPV (test code = 8.9 fL 9.8-13.0 L 70376-3) NRBC/100 WBC (test See_Comment [Automat ed code = 4569010072) message] The system which generated this result transmitted reference range : 0.0 - 10.0 /100 WBCs. The refer ence range was not u sed to interpret th is result as normal/abnormal . NRBC x10^3 (test code <0.01 See_Comment [Auto mated = 1176654165) message] The s ystem which generated this result transmitted reference range : 10*3/?L. The reference range was not used to interpret this result as normal/abnormal . GRAN MAT (NEUT) % 68.5 % (test code = 770-8) IMM GRAN % (test code 0.50 % = 2277121488) LYMPH % (test code = 19.7 % 736-9) MONO % (test code = 10.1 % 5905-5) EOS % (test code = 0.8 % 713-8) BASO % (test code = 0.4 % 706-2) GRAN MAT x10^3(ANC) 7.96 10*3/uL 1.99-6.95 H (test code = 5683192006) IMM GRAN x10^3 (test 0.06 10*3/uL 0.00-0.06 code = 9725535958) LYMPH x10^3 (test code 2.29 10*3/uL 1.09-3.23 = 731-0) MONO x10^3 (test code 1.17 10*3/uL 0.36-1.02 H = 742-7) EOS x10^3 (test code = 0.09 10*3/uL 0.06-0.53 711-2) BASO x10^3 (test code 0.05 10*3/uL 0.01-0.09 = 704-7) Lab Interpretation Abnormal (test code = 98596-0) [facility] WITH [id number] 19:34:33 Test Item Value Reference Range Interpretation Comments WBC (test code = See_Comment H [Automated 6690-2) message] The sy stem which generated this result transmitted reference range : 4.20 - 10.70 10*3/?L. The reference range was not used to interpret this result as normal/abnormal . RBC (test code = See_Comment L [Automated 789-8) message] The sy stem which generated this result transmitted reference range : 4.26 - 5.52 10*6/?L. The reference range was not used to interpret this result as normal/abnormal . HGB (test code = 7.0 g/dL 12.2-16.4 L 718-7) HCT (test code = 21.6 % 38.4-49.3 L 4544-3) MCV (test code = 87.4 fL 81.7-95.6 787-2) MCH (test code = 28.3 pg 26.1-32.7 785-6) MCHC (test code = 32.4 g/dL 31.2-35.0 786-4) RDW-SD (test code = 43.2 fL 38.5-51.6 92584-3) RDW-CV (test code = 13.6 % 12.1-15.4 788-0) PLT (test code = See_Comment H [Automated 777-3) message] The sy stem which generated this result transmitted reference range : 150 - 328 10*3/ ?L. The reference r ivett was not used to interpret this result as normal/abnormal . MPV (test code = 8.9 fL 9.8-13.0 L 53583-3) NRBC/100 WBC (test See_Comment [Automat ed code = 7325856995) message] The system which generated this result transmitted reference range : 0.0 - 10.0 /100 WBCs. The refer ence range was not u sed to interpret th is result as normal/abnormal . NRBC x10^3 (test code <0.01 See_Comment [Auto mated = 7052470274) message] The s ystem which generated this result transmitted reference range : 10*3/?L. The reference range was not used to interpret this result as normal/abnormal . GRAN MAT (NEUT) % 68.5 % (test code = 770-8) IMM GRAN % (test code 0.50 % = 4060595384) LYMPH % (test code = 19.7 % 736-9) MONO % (test code = 10.1 % 5905-5) EOS % (test code = 0.8 % 713-8) BASO % (test code = 0.4 % 706-2) GRAN MAT x10^3(ANC) 7.96 10*3/uL 1.99-6.95 H (test code = 9769827883) IMM GRAN x10^3 (test 0.06 10*3/uL 0.00-0.06 code = 3471967090) LYMPH x10^3 (test code 2.29 10*3/uL 1.09-3.23 = 731-0) MONO x10^3 (test code 1.17 10*3/uL 0.36-1.02 H = 742-7) EOS x10^3 (test code = 0.09 10*3/uL 0.06-0.53 711-2) BASO x10^3 (test code 0.05 10*3/uL 0.01-0.09 = 704-7) Lab Interpretation Abnormal (test code = 67253-3) [facility] GLUCOSE (AUTOMATED)2020-11-26 17:24:20 Test Item Value Reference Range Interpretation Comments POCT GLU (test code = 2890314218) 151 mg/dL 70-110 H Lab Interpretation (test code = Abnormal 84434-0) [facility] GLUCOSE (AUTOMATED)2020-11-26 17:24:20 Test Item Value Reference Range Interpretation Comments POCT GLU (test code = 8957170005) 151 mg/dL 70-110 H Lab Interpretation (test code = Abnormal 73108-6) [facility] GLUCOSE (AUTOMATED)2020-11-26 12:56:37 Test Item Value Reference Range Interpretation Comments POCT GLU (test code = 0933551767) 213 mg/dL 70-110 H Lab Interpretation (test code = Abnormal 97075-6) [facility] GLUCOSE (AUTOMATED)2020-11-26 12:56:37 Test Item Value Reference Range Interpretation Comments POCT GLU (test code = 5865958220) 213 mg/dL 70-110 H Lab Interpretation (test code = Abnormal 89814-6) [facility] GLUCOSE (AUTOMATED)2020-11-26 09:32:11 Test Item Value Reference Range Interpretation Comments POCT GLU (test code = 5523651817) 218 mg/dL 70-110 H Lab Interpretation (test code = Abnormal 84131-6) [facility] GLUCOSE (AUTOMATED)2020-11-26 09:32:11 Test Item Value Reference Range Interpretation Comments POCT GLU (test code = 7648528292) 218 mg/dL 70-110 H Lab Interpretation (test code = Abnormal 54465-3) [facility] [id number] 06:21:47COVID DMT InterpretationInterpretation/Recommendations: Molecular NAAT Tests for Active Infection with the SARS-CoV-2 Virus: The patient has currently tested negative for the SARS-CoV-2 virus that causes COVID-19 illness. This most likely indicates that the patient does not have an active infection with the SARS-CoV-2 virus. However, infection is not completely ruled out as the false negative rate for molecular NAAT testing using a nasopharyngeal sample can be up to 30%, mostly dependent on the timing of sample collection in relation to illness onset and any deficiencies in sampling techniques. If the patient has symptoms concerning for COVID-19 illness, a repeat NAAT test (PCR, Rapid ID Now, etc.) should be performed, at which time the SARS-CoV-2 virus - if present - may have reached a detectable viral load (usually peaking by the end of the first week of symptoms). Tests for IgM and/or IgG Antibodies to the SARS-CoV-2 Virus: If the patient develops COVID-19 illness in the future, testing for IgM and IgG antibodies approximately 3 weeks after illness onset will likely indicate if the patient has produced antibodies to the SARS-CoV-2 virus. However, some patients may take longer to develop detectable antibodies, while some patients who were infected with SARS-CoV-2 may never develop antibodies. While antibodies to SARS-CoV-2 may provide some degree of immunity, at this time the strength and duration of the antibody response is unknown. Interpretation Result Comments:These interpretation comments are based upon all COVID-19 testing the patient has had at [facility], including molecular NAAT testing (more commonly known as PCR testing and Rapid ID Now testing) and antibody testing. It does not take into account any testingthat a patient has had outside of the [facility] medical record. [facility] LABORATORY SERVICESCOVID [id number]-RpG-7 Rapid ID NOW (no units) ? ? Date ? Value ? 11/25/2020 ? Not Detected ? ? ? 11/17/2020 ? Not Detected ? ? ? 11/11/2020 ? Not Detected ? ? ? 11/05/2020 ? Not Detected ? [facility]Un[facility] [id number] 06:21:47COVID DMT InterpretationInterpretation/Recommendations: Molecular NAAT Tests for Active Infection with the SARS-CoV-2 Virus: The patient has currently tested negative for the SARS-CoV-2 virus that causes COVID-19 illness. This most likely indicates that the patient does not have an active infection with the SARS-CoV-2 virus. However, infection is not completely ruled out as the false negative rate for molecular NAAT testing using a nasopharyngeal sample can be up to 30%, mostly dependent on the timing of sample collection in relation to illness onset and any deficiencies in sampling techniques. If the patient has symptoms concerning for COVID-19 illness, a repeat NAAT test (PCR, Rapid ID Now, etc.) should be performed, at which time the SARS-CoV-2 virus - if present - may have reached a detectable viral load (usually peaking by the end of the first week of symptoms). Tests for IgM and/or IgG Antibodies to the SARS-CoV-2 Virus: If the patient develops COVID-19 illness in the future, testing for IgM and IgG antibodies approximately 3 weeks after illness onset will likely indicate if the patient has produced antibodies to the SARS-CoV-2 virus. However, some patients may take longer to develop detectable antibodies, while some patients who were infected with SARS-CoV-2 may never develop antibodies. While antibodies to SARS-CoV-2 may provide some degree of immunity, at this time the strength and duration of the antibody response is unknown. Interpretation Result Comments:These interpretation comments are based upon all COVID-19 testing the patient has had at [facility], including molecular NAAT testing (more commonly known as PCR testing and Rapid ID Now testing) and antibody testing. It does not take into account any testingthat a patient has had outside of the [facility] medical record. [facility] LABORATORY SERVICESCOVID [id number]-SmO-1 Rapid ID NOW (no units) ? ? Date ? Value ? 11/25/2020 ? Not Detected ? ? ? 11/17/2020 ? Not Detected ? ? ? 11/11/2020 ? Not Detected ? ? ? 11/05/2020 ? Not Detected ? [facility]2020-11-26 05:08:53 Test Item Value Reference Range Interpretation Comments POCT GLU (test code = 7581663591) 227 mg/dL 70-110 H Lab Interpretation (test code = Abnormal 26344-6) [facility] GLUCOSE (AUTOMATED)2020-11-26 05:08:53 Test Item Value Reference Range Interpretation Comments POCT GLU (test code = 0093323830) 227 mg/dL 70-110 H Lab Interpretation (test code = Abnormal 99572-9) [facility] WITHOUT [id number] 04:42:54 Test Item Value Reference Range Interpretation Comments WBC (test code = 6690-2) See_Comment [A utomated message] The system [employer] generated this result transmit marcelina reference range : 4.20 - 10.70 10*3/?L. The reference range was not used to interpret this result as normal/abnormal . RBC (test code = 789-8) See_Comment L [Au tomated message] The system [employer] generated this result transmit marcelina reference range : 4.26 - 5.52 10* 6/?L. The reference r ivett was not used to interpret this result as normal/abnormal . HGB (test code = 718-7) 7.3 g/dL 12.2-16.4 L HCT (test code = 4544-3) 22.2 % 38.4-49.3 L MCH (test code = 785-6) 28.7 pg 26.1-32.7 MCV (test code = 787-2) 87.4 fL 81.7-95.6 MCHC (test code = 786-4) 32.9 g/dL 31.2-35.0 PLT (test code = 777-3) See_Comment H [Au tomated message] The system [employer] generated this result transmit marcelina reference range : 150 - 328 10*3/?L. The reference range was not used to interpret this result as normal/abnormal . MPV (test code = 8.7 fL 9.8-13.0 L 17601-2) RDW-CV (test code = 13.6 % 12.1-15.4 788-0) RDW-SD (test code = 42.9 fL 38.5-51.6 79993-9) NRBC x10^3 (test code = <0.01 See_Comment [Au tomated message] 7093161468) The system [employer] generated this result transmit marcelina reference range : 10*3/?L. The reference range was not used to interpret this result as normal/abnormal . NRBC/100 WBC (test code See_Comment [Au tomated message] = 2481611353) The system [facility] generated this result transmit marcelina reference range : 0.0 - 10.0 /100 WBC s. The reference r ivett was not used to interpret this result as normal/abnormal . IPF % (test code = 5916861493) Lab Interpretation (test Abnormal code = 01799-0) [facility] WITHOUT [id number] 04:42:54 Test Item Value Reference Range Interpretation Comments WBC (test code = 6690-2) See_Comment [A utomated message] The system [employer] generated this result transmit marcelina reference range : 4.20 - 10.70 10*3/?L. The reference range was not used to interpret this result as normal/abnormal . RBC (test code = 789-8) See_Comment L [Au tomated message] The system [employer] generated this result transmit marcelina reference range : 4.26 - 5.52 10* 6/?L. The reference r ivett was not used to interpret this result as normal/abnormal . HGB (test code = 718-7) 7.3 g/dL 12.2-16.4 L HCT (test code = 4544-3) 22.2 % 38.4-49.3 L MCH (test code = 785-6) 28.7 pg 26.1-32.7 MCV (test code = 787-2) 87.4 fL 81.7-95.6 MCHC (test code = 786-4) 32.9 g/dL 31.2-35.0 PLT (test code = 777-3) See_Comment H [Au tomated message] The system [employer] generated this result transmit marcelina reference range : 150 - 328 10*3/?L. The reference range was not used to interpret this result as normal/abnormal . MPV (test code = 8.7 fL 9.8-13.0 L 55652-4) RDW-CV (test code = 13.6 % 12.1-15.4 788-0) RDW-SD (test code = 42.9 fL 38.5-51.6 91398-8) NRBC x10^3 (test code = <0.01 See_Comment [Au tomated message] 4609714929) The system [employer] generated this result transmit marcelina reference range : 10*3/?L. The reference range was not used to interpret this result as normal/abnormal . NRBC/100 WBC (test code See_Comment [Au tomated message] = 6732754602) The system [facility] generated this result transmit marcelina reference range : 0.0 - 10.0 /100 WBC s. The reference r ivett was not used to interpret this result as normal/abnormal . IPF % (test code = 6612067005) Lab Interpretation (test Abnormal code = 13552-4) [facility] GLUCOSE (AUTOMATED)2020-11-26 00:57:24 Test Item Value Reference Range Interpretation Comments POCT GLU (test code = 3008736472) 138 mg/dL 70-110 H Lab Interpretation (test code = Abnormal 93748-2) [facility] GLUCOSE (AUTOMATED)2020-11-26 00:57:24 Test Item Value Reference Range Interpretation Comments POCT GLU (test code = 9743064608) 138 mg/dL 70-110 H Lab Interpretation (test code = Abnormal 16864-2) [facility] Packed RBC (in units), 1 Units 2020-11-26 00:40:19 Test Item Value Reference Range Interpretation Comments Cross Match Result Compatible (test code = 4409) ISBT Blood Type Code (test code = 899816) Unit Blood Type (test A Pos code = 4410) Unit Number (test [id number] code = 4411) Blood Expiration Date & Time (test code = 388323) Status Information Issued (test code = 4412) Product Red Blood Cells Identification (test code = 4413) Product Code (test M4655I44 Performed at [facility] code = 4414) Laboratory Services - [facility] Blood [address] [address]Dwph Free: [phone] A No. [id number] [facility] Packed RBC (in units), 1 Units 2020-11-26 00:40:19 Test Item Value Reference Range Interpretation Comments Cross Match Result Compatible (test code = 4409) ISBT Blood Type Code (test code = 360493) Unit Blood Type (test A Pos code = 4410) Unit Number (test [id number] code = 4411) Blood Expiration Date & Time (test code = 739972) Status Information Issued (test code = 4412) Product Red Blood Cells Identification (test code = 4413) Product Code (test M7461M85 Performed at [facility] code = 4414) Laboratory Services - [facility] Blood [address] [place] [address]Ajjz Free: [phone] A No. [id number] [facility] METABOLIC PANEL (NA, K, CL, CO2, GLUCOSE, BUN, CREATININE, CA)2020-11-25 23:41:52 Test Item Value Reference Range Interpretation Comments NA (test code = 134 mmol/L 135-145 L 7634548596) K (test code = 4.4 mmol/L 3.5-5.0 4125016797) CL (test code = 103 mmol/L 98-108 3021728990) CO2 TOTAL (test code = 25 mmol/L 23-31 1944700093) AGAP (test code = 2-16 1726158337) BUN (test code = 12 mg/dL 7-23 1081115915) GLUCOSE (test code = 127 mg/dL 70-110 H 0523355233) CREATININE (test code = 0.59 mg/dL 0.60-1.25 L 5289375853) CALCIUM (test code = 8.8 mg/dL 8.6-10.6 9530931758) eGFR (test code = mL/min/1.73m2 9005053517) PATTI (test code = PATTI) Association of Glomerular Filtration Rate (GFR) and Staging of Kidney Disease* + --+ --+ ------+| GFR (mL/min/1.73 m2) ?| With Kidney Damage ?| ?Without Kidney Damage+ --------+ --------+ +| ?>90 ?| ?Stage one ?| ? Normal ?+ ---+ ---+ -------+| ?60-89 ?| ?Stage two ?| ? Decreased GFR ? + --+ --+ ------+| ?30-59 ?| ?Stage three ?| ? Stage three ? + --+ --+ ------+| ?15-29 ?| ?Stage four ? | ? Stage four ?+ ---+ ---+ -------+| ?<15 (or dialysis) ? ?| ?Stage five ? | ? Stage five ?+ ---+ ---+ -------+ *Each stage assumes the associated GFR level has been in effect for at least three months. ?Stages 1 to 5, with or without kidney disease, indicate chronic kidney disease. Notes: Determination of stages one and two (with eGFR >59mL/min/1.73 m2) requires estimation of kidney damage for at least three months as defined by structural or functional abnormalities of the kidney, manifested by either:Pathological abnormalities or Markers of kidney damage (including abnormalities in the composition of the blood or urine or abnormalities in imaging tests). Lab Interpretation Abnormal (test code = 15177-8) [facility]41:52 Test Item Value Reference Range Interpretation Comments MAGNESIUM (test code = 4906459653) 1.8 mg/dL 1.7-2.4 Lab Interpretation (test code = Normal 29506-2) [facility] 23:41:52 Test Item Value Reference Range Interpretation Comments PHOSPHORUS (test code = 2117081587) 4.7 mg/dL 2.5-5.0 Lab Interpretation (test code = Normal 38345-6) [facility] (NA, K, CL, CO2, GLUCOSE, BUN, CREATININE, CA)2020-11-25 23:41:52 Test Item Value Reference Range Interpretation Comments NA (test code = 134 mmol/L 135-145 L 2099458959) K (test code = 4.4 mmol/L 3.5-5.0 8083412075) CL (test code = 103 mmol/L 98-108 4034393400) CO2 TOTAL (test code = 25 mmol/L 23-31 7307777096) AGAP (test code = 2-16 3588591787) BUN (test code = 12 mg/dL 7-23 4314038463) GLUCOSE (test code = 127 mg/dL 70-110 H 1826990351) CREATININE (test code = 0.59 mg/dL 0.60-1.25 L 1997152798) CALCIUM (test code = 8.8 mg/dL 8.6-10.6 3095462910) eGFR (test code = mL/min/1.73m2 6607835494) PATTI (test code = PATTI) Association of Glomerular Filtration Rate (GFR) and Staging of Kidney Disease* + --+ --+ ------+| GFR (mL/min/1.73 m2) ?| With Kidney Damage ?| ?Without Kidney Damage+ --------+ --------+ +| ?>90 ?| ?Stage one ?| ? Normal ?+ ---+ ---+ -------+| ?60-89 ?| ?Stage two ?| ? Decreased GFR ? + --+ --+ ------+| ?30-59 ?| ?Stage three ?| ? Stage three ? + --+ --+ ------+| ?15-29 ?| ?Stage four ? | ? Stage four ?+ ---+ ---+ -------+| ?<15 (or dialysis) ? ?| ?Stage five ? | ? Stage five ?+ ---+ ---+ -------+ *Each stage assumes the associated GFR level has been in effect for at least three months. ?Stages 1 to 5, with or without kidney disease, indicate chronic kidney disease. Notes: Determination of stages one and two (with eGFR >59mL/min/1.73 m2) requires estimation of kidney damage for at least three months as defined by structural or functional abnormalities of the kidney, manifested by either:Pathological abnormalities or Markers of kidney damage (including abnormalities in the composition of the blood or urine or abnormalities in imaging tests). Lab Interpretation Abnormal (test code = 08946-9) [facility] 23:41:52 Test Item Value Reference Range Interpretation Comments MAGNESIUM (test code = 4478326157) 1.8 mg/dL 1.7-2.4 Lab Interpretation (test code = Normal 77785-3) [facility] 23:41:52 Test Item Value Reference Range Interpretation Comments PHOSPHORUS (test code = 8447691225) 4.7 mg/dL 2.5-5.0 Lab Interpretation (test code = Normal 50762-8) [facility] [id number] 23:25:28 Test Item Value Reference Range Interpretation Comments WBC (test code = 6690-2) See_Comment [A utomated message] The system [employer] generated this result transmit marcelina reference range : 4.20 - 10.70 10*3/?L. The reference range was not used to interpret this result as normal/abnormal . RBC (test code = 789-8) See_Comment L [Au tomated message] The system [employer] generated this result transmit marcelina reference range : 4.26 - 5.52 10* 6/?L. The reference r ivett was not used to interpret this result as normal/abnormal . HGB (test code = 718-7) 6.8 g/dL 12.2-16.4 L HCT (test code = 4544-3) 21.2 % 38.4-49.3 L MCH (test code = 785-6) 27.6 pg 26.1-32.7 MCV (test code = 787-2) 86.2 fL 81.7-95.6 MCHC (test code = 786-4) 32.1 g/dL 31.2-35.0 PLT (test code = 777-3) See_Comment H [Au tomated message] The system [employer] generated this result transmit marcelina reference range : 150 - 328 10*3/?L. The reference range was not used to interpret this result as normal/abnormal . MPV (test code = 8.7 fL 9.8-13.0 L 24915-7) RDW-CV (test code = 13.2 % 12.1-15.4 788-0) RDW-SD (test code = 41.3 fL 38.5-51.6 77411-6) NRBC x10^3 (test code = <0.01 See_Comment [Au tomated message] 9773058574) The system [employer] generated this result transmit marcelina reference range : 10*3/?L. The reference range was not used to interpret this result as normal/abnormal . NRBC/100 WBC (test code See_Comment [Au tomated message] = 7994566853) The system [facility] generated this result transmit marcelina reference range : 0.0 - 10.0 /100 WBC s. The reference r ivett was not used to interpret this result as normal/abnormal . IPF % (test code = 0524745359) Lab Interpretation (test Abnormal code = 11253-1) [facility] WITHOUT [id number] 23:25:28 Test Item Value Reference Range Interpretation Comments WBC (test code = 6690-2) See_Comment [A utomated message] The system [facility] generated this result transmit marcelina reference range : 4.20 - 10.70 10*3/?L. The reference range was not used to interpret this result as normal/abnormal . RBC (test code = 789-8) See_Comment L [Au tomated message] The system [facility] generated this result transmit marcelina reference range : 4.26 - 5.52 10* 6/?L. The reference r ivett was not used to interpret this result as normal/abnormal . HGB (test code = 718-7) 6.8 g/dL 12.2-16.4 L HCT (test code = 4544-3) 21.2 % 38.4-49.3 L MCH (test code = 785-6) 27.6 pg 26.1-32.7 MCV (test code = 787-2) 86.2 fL 81.7-95.6 MCHC (test code = 786-4) 32.1 g/dL 31.2-35.0 PLT (test code = 777-3) See_Comment H [Au tomated message] The system [facility] generated this result transmit marcelina reference range : 150 - 328 10*3/?L. The reference range was not used to interpret this result as normal/abnormal . MPV (test code = 8.7 fL 9.8-13.0 L 18475-0) RDW-CV (test code = 13.2 % 12.1-15.4 788-0) RDW-SD (test code = 41.3 fL 38.5-51.6 83778-0) NRBC x10^3 (test code = <0.01 See_Comment [Au tomated message] [id number]) The system [facility] generated this result transmit marcelina reference range : 10*3/?L. The reference range was not used to interpret this result as normal/abnormal . NRBC/100 WBC (test code See_Comment [Au tomated message] = 5296570006) The system [facility] generated this result transmit marcelina reference range : 0.0 - 10.0 /100 WBC s. The reference r ivett was not used to interpret this result as normal/abnormal . IPF % (test code = 8086754912) Lab Interpretation (test Abnormal code = 53431-8) [facility] GLUCOSE (AUTOMATED)2020-11-25 22:48:17 Test Item Value Reference Range Interpretation Comments POCT GLU (test code = 4625677456) 131 mg/dL 70-110 H Lab Interpretation (test code = Abnormal 31265-6) [facility] GLUCOSE (AUTOMATED)2020-11-25 22:48:17 Test Item Value Reference Range Interpretation Comments POCT GLU (test code = 1152462715) 131 mg/dL 70-110 H Lab Interpretation (test code = Abnormal 92692-2) [facility] GLUCOSE (AUTOMATED)2020-11-25 17:21:43 Test Item Value Reference Range Interpretation Comments POCT GLU (test code = 9399368058) 119 mg/dL 70-110 H Lab Interpretation (test code = Abnormal 54137-3) [facility] GLUCOSE (AUTOMATED)2020-11-25 17:21:43 Test Item Value Reference Range Interpretation Comments POCT GLU (test code = 3756592660) 119 mg/dL 70-110 H Lab Interpretation (test code = Abnormal 26509-9) [facility] GLUCOSE (AUTOMATED)2020-11-25 13:07:08 Test Item Value Reference Range Interpretation Comments POCT GLU (test code = 7690594631) 114 mg/dL 70-110 H Lab Interpretation (test code = Abnormal 90283-2) [facility] GLUCOSE (AUTOMATED)2020-11-25 13:07:08 Test Item Value Reference Range Interpretation Comments POCT GLU (test code = 4942450683) 114 mg/dL 70-110 H Lab Interpretation (test code = Abnormal 09279-4) [facility] and Screen - ONCE [id number] 11:33:02 Test Item Value Reference Range Interpretation Comments ABO & RH (test code A POSITIVE Performe d at [facility] = 20) Laboratory Serv [facility] Blood Bank3 [facility] s [id number] Free: [phone] A No. [id number] IAT (test code = Negative Performed a t [facility] 1185) Laboratory Serv [facility] Blood Bank3 [facility] s [address]Ezgu Free: [phone] A No. [id number] [facility] and Screen - ONCE [id number] 11:33:02 Test Item Value Reference Range Interpretation Comments ABO & RH (test code A POSITIVE Performe d at [facility] = 20) Laboratory Serv [facility] Blood Bank3 [address] [facility] s [address]Ipje Free: [phone] A No. [id number] IAT (test code = Negative Performed a t [facility] 1185) Laboratory Serv [facility] Blood [facility]3 [address] [facility] s [address]Lkyr Free: [phone] A No. [id number] [facility]2020-11-25 10:11:21 Test Item Value Reference Range Interpretation Comments SARS-CoV-2 Rapid ID NOW Not Detected Not Detected (test code = 89988-8) PATTI (test code = PATTI) ID NOW COVID-19 Assay is an isothermal nucleic acid amplification test intended for the qualitative detection of nucleic acid from SARS-CoV-2 viral RNA in nasopharyngeal ([employer]ACHINE [employer]) specimens. It is used under Emergency Use Authorization (EUA) by FDA. The limit of detection (LOD) of the assay is 125 Genome Equivalents/mL. A positive result is indicative of the presence of SARS-CoV-2 RNA. ?Clinical correlation with patient history and other diagnostic information is necessary to determine patient infection status. A negative (Not Detected) result does not preclude SARS-CoV-2 infection. In patients with clinical symptoms and other tests that are consistent with SARS-CoV-2 infection, negative results should be treated as presumptive negative and a new specimen should be tested with alternative PCR molecular test. Invalid: Please collect a new specimen for repeat patient testing if clinically indicated. Lab Interpretation Normal (test code = 07404-4) [facility]2020-11-25 10:11:21 Test Item Value Reference Range Interpretation Comments SARS-CoV-2 Rapid ID NOW Not Detected Not Detected (test code = 71895-5) PATTI (test code = PATTI) ID NOW COVID-19 Assay is an isothermal nucleic acid amplification test intended for the qualitative detection of nucleic acid from SARS-CoV-2 viral RNA in nasopharyngeal (CHINCHILLA MACHINE OPERATOR) specimens. It is used under Emergency Use Authorization (EUA) by FDA. The limit of detection (LOD) of the assay is 125 Genome Equivalents/mL. A positive result is indicative of the presence of SARS-CoV-2 RNA. ?Clinical correlation with patient history and other diagnostic information is necessary to determine patient infection status. A negative (Not Detected) result does not preclude SARS-CoV-2 infection. In patients with clinical symptoms and other tests that are consistent with SARS-CoV-2 infection, negative results should be treated as presumptive negative and a new specimen should be tested with alternative PCR molecular test. Invalid: Please collect a new specimen for repeat patient testing if clinically indicated. Lab Interpretation Normal (test code = 85520-2) [facility] 10:05:39 Test Item Value Reference Range Interpretation Comments PHOSPHORUS (test code = 0489026953) 4.5 mg/dL 2.5-5.0 Lab Interpretation (test code = Normal 62140-0) [facility] 10:05:39 Test Item Value Reference Range Interpretation Comments MAGNESIUM (test code = 2180399661) 2.2 mg/dL 1.7-2.4 Lab Interpretation (test code = Normal 46708-8) [facility] (NA, K, CL, CO2, GLUCOSE, BUN, CREATININE, CA)2020-11-25 10:05:39 Test Item Value Reference Range Interpretation Comments NA (test code = 136 mmol/L 135-145 6702239797) K (test code = 4.4 mmol/L 3.5-5.0 8013478878) CL (test code = 101 mmol/L 98-108 9128718184) CO2 TOTAL (test code = 30 mmol/L 23-31 4455074351) AGAP (test code = 2-16 5905825255) BUN (test code = 14 mg/dL 7-23 0309366536) GLUCOSE (test code = 120 mg/dL 70-110 H 4930316356) CREATININE (test code = 0.56 mg/dL 0.60-1.25 L 5579203854) CALCIUM (test code = 9.3 mg/dL 8.6-10.6 0084393293) eGFR (test code = mL/min/1.73m2 9921178135) PATTI (test code = PATTI) Association of Glomerular Filtration Rate (GFR) and Staging of Kidney Disease* + --+ --+ ------+| GFR (mL/min/1.73 m2) ?| With Kidney Damage ?| ?Without Kidney Damage+ --------+ --------+ +| ?>90 ?| ?Stage one ?| ? Normal ?+ ---+ ---+ -------+| ?60-89 ?| ?Stage two ?| ? Decreased GFR ? + --+ --+ ------+| ?30-59 ?| ?Stage three ?| ? Stage three ? + --+ --+ ------+| ?15-29 ?| ?Stage four ? | ? Stage four ?+ ---+ ---+ -------+| ?<15 (or dialysis) ? ?| ?Stage five ? | ? Stage five ?+ ---+ ---+ -------+ *Each stage assumes the associated GFR level has been in effect for at least three months. ?Stages 1 to 5, with or without kidney disease, indicate chronic kidney disease. Notes: Determination of stages one and two (with eGFR >59mL/min/1.73 m2) requires estimation of kidney damage for at least three months as defined by structural or functional abnormalities of the kidney, manifested by either:Pathological abnormalities or Markers of kidney damage (including abnormalities in the composition of the blood or urine or abnormalities in imaging tests). Lab Interpretation Abnormal (test code = 33727-5) [facility] 10:05:39 Test Item Value Reference Range Interpretation Comments PHOSPHORUS (test code = 3966037517) 4.5 mg/dL 2.5-5.0 Lab Interpretation (test code = Normal 53010-3) [facility] 10:05:39 Test Item Value Reference Range Interpretation Comments MAGNESIUM (test code = 6313223677) 2.2 mg/dL 1.7-2.4 Lab Interpretation (test code = Normal 34578-4) [facility] (NA, K, CL, CO2, GLUCOSE, BUN, CREATININE, CA)2020-11-25 10:05:39 Test Item Value Reference Range Interpretation Comments NA (test code = 136 mmol/L 135-145 7396717247) K (test code = 4.4 mmol/L 3.5-5.0 8055480756) CL (test code = 101 mmol/L 98-108 7092060076) CO2 TOTAL (test code = 30 mmol/L 23-31 0716583887) AGAP (test code = 2-16 7957194250) BUN (test code = 14 mg/dL 7-23 4001831900) GLUCOSE (test code = 120 mg/dL 70-110 H 6221614769) CREATININE (test code = 0.56 mg/dL 0.60-1.25 L 8568799878) CALCIUM (test code = 9.3 mg/dL 8.6-10.6 9050517845) eGFR (test code = mL/min/1.73m2 7585993634) PATTI (test code = PATTI) Association of Glomerular Filtration Rate (GFR) and Staging of Kidney Disease* + --+ --+ ------+| GFR (mL/min/1.73 m2) ?| With Kidney Damage ?| ?Without Kidney Damage+ --------+ --------+ +| ?>90 ?| ?Stage one ?| ? Normal ?+ ---+ ---+ -------+| ?60-89 ?| ?Stage two ?| ? Decreased GFR ? + --+ --+ ------+| ?30-59 ?| ?Stage three ?| ? Stage three ? + --+ --+ ------+| ?15-29 ?| ?Stage four ? | ? Stage four ?+ ---+ ---+ -------+| ?<15 (or dialysis) ? ?| ?Stage five ? | ? Stage five ?+ ---+ ---+ -------+ *Each stage assumes the associated GFR level has been in effect for at least three months. ?Stages 1 to 5, with or without kidney disease, indicate chronic kidney disease. Notes: Determination of stages one and two (with eGFR >59mL/min/1.73 m2) requires estimation of kidney damage for at least three months as defined by structural or functional abnormalities of the kidney, manifested by either:Pathological abnormalities or Markers of kidney damage (including abnormalities in the composition of the blood or urine or abnormalities in imaging tests). Lab Interpretation Abnormal (test code = 86626-6) [facility] WITH [id number] 09:37:36 Test Item Value Reference Range Interpretation Comments WBC (test code = See_Comment [Automated 6690-2) message] The sy stem which generated this result transmitted reference range : 4.20 - 10.70 10*3/?L. The reference range was not used to interpret this result as normal/abnormal . RBC (test code = See_Comment L [Automated 789-8) message] The sy stem which generated this result transmitted reference range : 4.26 - 5.52 10*6/?L. The reference range was not used to interpret this result as normal/abnormal . HGB (test code = 8.3 g/dL 12.2-16.4 L 718-7) HCT (test code = 25.3 % 38.4-49.3 L 4544-3) MCV (test code = 85.8 fL 81.7-95.6 787-2) MCH (test code = 28.1 pg 26.1-32.7 785-6) MCHC (test code = 32.8 g/dL 31.2-35.0 786-4) RDW-SD (test code = 41.1 fL 38.5-51.6 88256-9) RDW-CV (test code = 13.2 % 12.1-15.4 788-0) PLT (test code = See_Comment H [Automated 777-3) message] The sy stem which generated this result transmitted reference range : 150 - 328 10*3/ ?L. The reference r ivett was not used to interpret this result as normal/abnormal . MPV (test code = 8.8 fL 9.8-13.0 L 26710-2) NRBC/100 WBC (test See_Comment [Automat ed code = 7589725714) message] The system which generated this result transmitted reference range : 0.0 - 10.0 /100 WBCs. The refer ence range was not u sed to interpret th is result as normal/abnormal . NRBC x10^3 (test code <0.01 See_Comment [Auto mated = 4108865116) message] The s ystem which generated this result transmitted reference range : 10*3/?L. The reference range was not used to interpret this result as normal/abnormal . GRAN MAT (NEUT) % 57.0 % (test code = 770-8) IMM GRAN % (test code 0.50 % = 8663847674) LYMPH % (test code = 28.3 % 736-9) MONO % (test code = 8.0 % 5905-5) EOS % (test code = 5.3 % 713-8) BASO % (test code = 0.9 % 706-2) GRAN MAT x10^3(ANC) 4.23 10*3/uL 1.99-6.95 (test code = 6517442971) IMM GRAN x10^3 (test 0.04 10*3/uL 0.00-0.06 code = 3254502961) LYMPH x10^3 (test code 2.10 10*3/uL 1.09-3.23 = 731-0) MONO x10^3 (test code 0.59 10*3/uL 0.36-1.02 = 742-7) EOS x10^3 (test code = 0.39 10*3/uL 0.06-0.53 711-2) BASO x10^3 (test code 0.07 10*3/uL 0.01-0.09 = 704-7) Lab Interpretation Abnormal (test code = 28744-6) [facility] WITH [id number] 09:37:36 Test Item Value Reference Range Interpretation Comments WBC (test code = See_Comment [Automated 6690-2) message] The sy stem which generated this result transmitted reference range : 4.20 - 10.70 10*3/?L. The reference range was not used to interpret this result as normal/abnormal . RBC (test code = See_Comment L [Automated 789-8) message] The sy stem which generated this result transmitted reference range : 4.26 - 5.52 10*6/?L. The reference range was not used to interpret this result as normal/abnormal . HGB (test code = 8.3 g/dL 12.2-16.4 L 718-7) HCT (test code = 25.3 % 38.4-49.3 L 4544-3) MCV (test code = 85.8 fL 81.7-95.6 787-2) MCH (test code = 28.1 pg 26.1-32.7 785-6) MCHC (test code = 32.8 g/dL 31.2-35.0 786-4) RDW-SD (test code = 41.1 fL 38.5-51.6 35909-8) RDW-CV (test code = 13.2 % 12.1-15.4 788-0) PLT (test code = See_Comment H [Automated 777-3) message] The sy stem which generated this result transmitted reference range : 150 - 328 10*3/ ?L. The reference r ivett was not used to interpret this result as normal/abnormal . MPV (test code = 8.8 fL 9.8-13.0 L 86470-8) NRBC/100 WBC (test See_Comment [Automat ed code = 1373974663) message] The system which generated this result transmitted reference range : 0.0 - 10.0 /100 WBCs. The refer ence range was not u sed to interpret th is result as normal/abnormal . NRBC x10^3 (test code <0.01 See_Comment [Auto mated = 2926583871) message] The s ystem which generated this result transmitted reference range : 10*3/?L. The reference range was not used to interpret this result as normal/abnormal . GRAN MAT (NEUT) % 57.0 % (test code = 770-8) IMM GRAN % (test code 0.50 % = 0452636957) LYMPH % (test code = 28.3 % 736-9) MONO % (test code = 8.0 % 5905-5) EOS % (test code = 5.3 % 713-8) BASO % (test code = 0.9 % 706-2) GRAN MAT x10^3(ANC) 4.23 10*3/uL 1.99-6.95 (test code = 4250733069) IMM GRAN x10^3 (test 0.04 10*3/uL 0.00-0.06 code = 4544314229) LYMPH x10^3 (test code 2.10 10*3/uL 1.09-3.23 = 731-0) MONO x10^3 (test code 0.59 10*3/uL 0.36-1.02 = 742-7) EOS x10^3 (test code = 0.39 10*3/uL 0.06-0.53 711-2) BASO x10^3 (test code 0.07 10*3/uL 0.01-0.09 = 704-7) Lab Interpretation Abnormal (test code = 22305-5) [facility] GLUCOSE (AUTOMATED)2020-11-25 09:17:46 Test Item Value Reference Range Interpretation Comments POCT GLU (test code = 5054302831) 134 mg/dL 70-110 H Lab Interpretation (test code = Abnormal 31343-6) [facility] GLUCOSE (AUTOMATED)2020-11-25 09:17:46 Test Item Value Reference Range Interpretation Comments POCT GLU (test code = 6822599372) 134 mg/dL 70-110 H Lab Interpretation (test code = Abnormal 10304-8) [facility] GLUCOSE (AUTOMATED)2020-11-25 01:05:34 Test Item Value Reference Range Interpretation Comments POCT GLU (test code = 3666510911) 216 mg/dL 70-110 H Lab Interpretation (test code = Abnormal 98921-8) [facility] GLUCOSE (AUTOMATED)2020-11-25 01:05:34 Test Item Value Reference Range Interpretation Comments POCT GLU (test code = 7169821750) 216 mg/dL 70-110 H Lab Interpretation (test code = Abnormal 00324-8) [facility] GLUCOSE (AUTOMATED)2020-11-24 20:55:54 Test Item Value Reference Range Interpretation Comments POCT GLU (test code = 9982698037) 125 mg/dL 70-110 H Lab Interpretation (test code = Abnormal 14135-0) [facility] GLUCOSE (AUTOMATED)2020-11-24 20:55:54 Test Item Value Reference Range Interpretation Comments POCT GLU (test code = 4014292069) 125 mg/dL 70-110 H Lab Interpretation (test code = Abnormal 03433-8) [facility] GLUCOSE (AUTOMATED)2020-11-24 18:22:57 Test Item Value Reference Range Interpretation Comments POCT GLU (test code = 7770627556) 138 mg/dL 70-110 H Lab Interpretation (test code = Abnormal 24683-7) [facility] GLUCOSE (AUTOMATED)2020-11-24 18:22:57 Test Item Value Reference Range Interpretation Comments POCT GLU (test code = 7315365438) 138 mg/dL 70-110 H Lab Interpretation (test code = Abnormal 54504-6) [facility] GLUCOSE (AUTOMATED)2020-11-24 16:35:01 Test Item Value Reference Range Interpretation Comments POCT GLU (test code = 6999715890) 177 mg/dL 70-110 H Lab Interpretation (test code = Abnormal 87688-4) [facility] GLUCOSE (AUTOMATED)2020-11-24 16:35:01 Test Item Value Reference Range Interpretation Comments POCT GLU (test code = 5543122431) 177 mg/dL 70-110 H Lab Interpretation (test code = Abnormal 33471-0) [facility] GLUCOSE (AUTOMATED)2020-11-24 13:25:53 Test Item Value Reference Range Interpretation Comments POCT GLU (test code = 5213472896) 126 mg/dL 70-110 H Lab Interpretation (test code = Abnormal 94279-1) [facility] GLUCOSE (AUTOMATED)2020-11-24 13:25:53 Test Item Value Reference Range Interpretation Comments POCT GLU (test code = 3825706602) 126 mg/dL 70-110 H Lab Interpretation (test code = Abnormal 35095-4) [facility] METABOLIC PANEL (NA, K, CL, CO2, GLUCOSE, BUN, CREATININE, CA)2020-11-24 11:47:21 Test Item Value Reference Range Interpretation Comments NA (test code = 135 mmol/L 135-145 3760181278) K (test code = 4.1 mmol/L 3.5-5.0 1823245521) CL (test code = 101 mmol/L 98-108 3464638926) CO2 TOTAL (test code = 29 mmol/L 23-31 9713620461) AGAP (test code = 2-16 9257928389) BUN (test code = 14 mg/dL 7-23 0866394498) GLUCOSE (test code = 123 mg/dL 70-110 H 2083220556) CREATININE (test code = 0.50 mg/dL 0.60-1.25 L 8297585835) CALCIUM (test code = 9.3 mg/dL 8.6-10.6 8276944789) eGFR (test code = mL/min/1.73m2 3361621201) PATTI (test code = PATTI) Association of Glomerular Filtration Rate (GFR) and Staging of Kidney Disease* + --+ --+ ------+| GFR (mL/min/1.73 m2) ?| With Kidney Damage ?| ?Without Kidney Damage+ --------+ --------+ +| ?>90 ?| ?Stage one ?| ? Normal ?+ ---+ ---+ -------+| ?60-89 ?| ?Stage two ?| ? Decreased GFR ? + --+ --+ ------+| ?30-59 ?| ?Stage three ?| ? Stage three ? + --+ --+ ------+| ?15-29 ?| ?Stage four ? | ? Stage four ?+ ---+ ---+ -------+| ?<15 (or dialysis) ? ?| ?Stage five ? | ? Stage five ?+ ---+ ---+ -------+ *Each stage assumes the associated GFR level has been in effect for at least three months. ?Stages 1 to 5, with or without kidney disease, indicate chronic kidney disease. Notes: Determination of stages one and two (with eGFR >59mL/min/1.73 m2) requires estimation of kidney damage for at least three months as defined by structural or functional abnormalities of the kidney, manifested by either:Pathological abnormalities or Markers of kidney damage (including abnormalities in the composition of the blood or urine or abnormalities in imaging tests). Lab Interpretation Abnormal (test code = 36553-1) [facility]47[facility]21 Test Item Value Reference Range Interpretation Comments MAGNESIUM (test code = 9540900727) 2.3 mg/dL 1.7-2.4 Lab Interpretation (test code = Normal 24039-1) [facility] 11:47:21 Test Item Value Reference Range Interpretation Comments PHOSPHORUS (test code = 4862099487) 4.5 mg/dL 2.5-5.0 Lab Interpretation (test code = Normal 69570-3) [facility] (NA, K, CL, CO2, GLUCOSE, BUN, CREATININE, CA)2020-11-24 11:47:21 Test Item Value Reference Range Interpretation Comments NA (test code = 135 mmol/L 135-145 1795317897) K (test code = 4.1 mmol/L 3.5-5.0 2556474491) CL (test code = 101 mmol/L 98-108 5903988159) CO2 TOTAL (test code = 29 mmol/L 23-31 2641019698) AGAP (test code = 2-16 0616444395) BUN (test code = 14 mg/dL 7-23 7116360950) GLUCOSE (test code = 123 mg/dL 70-110 H 6115672710) CREATININE (test code = 0.50 mg/dL 0.60-1.25 L 5246332236) CALCIUM (test code = 9.3 mg/dL 8.6-10.6 9052240394) eGFR (test code = mL/min/1.73m2 7806983218) PATTI (test code = PATTI) Association of Glomerular Filtration Rate (GFR) and Staging of Kidney Disease* + --+ --+ ------+| GFR (mL/min/1.73 m2) ?| With Kidney Damage ?| ?Without Kidney Damage+ --------+ --------+ +| ?>90 ?| ?Stage one ?| ? Normal ?+ ---+ ---+ -------+| ?60-89 ?| ?Stage two ?| ? Decreased GFR ? + --+ --+ ------+| ?30-59 ?| ?Stage three ?| ? Stage three ? + --+ --+ ------+| ?15-29 ?| ?Stage four ? | ? Stage four ?+ ---+ ---+ -------+| ?<15 (or dialysis) ? ?| ?Stage five ? | ? Stage five ?+ ---+ ---+ -------+ *Each stage assumes the associated GFR level has been in effect for at least three months. ?Stages 1 to 5, with or without kidney disease, indicate chronic kidney disease. Notes: Determination of stages one and two (with eGFR >59mL/min/1.73 m2) requires estimation of kidney damage for at least three months as defined by structural or functional abnormalities of the kidney, manifested by either:Pathological abnormalities or Markers of kidney damage (including abnormalities in the composition of the blood or urine or abnormalities in imaging tests). Lab Interpretation Abnormal (test code = 29377-0) [facility] 11:47:21 Test Item Value Reference Range Interpretation Comments MAGNESIUM (test code = 6397692762) 2.3 mg/dL 1.7-2.4 Lab Interpretation (test code = Normal 75433-6) [facility] 11:47:21 Test Item Value Reference Range Interpretation Comments PHOSPHORUS (test code = 6996887317) 4.5 mg/dL 2.5-5.0 Lab Interpretation (test code = Normal 31153-7) [facility] [id number] 11:20:51 Test Item Value Reference Range Interpretation Comments WBC (test code = See_Comment [Automated 6690-2) message] The sy stem which generated this result transmitted reference range : 4.20 - 10.70 10*3/?L. The reference range was not used to interpret this result as normal/abnormal . RBC (test code = See_Comment L [Automated 789-8) message] The sy stem which generated this result transmitted reference range : 4.26 - 5.52 10*6/?L. The reference range was not used to interpret this result as normal/abnormal . HGB (test code = 8.4 g/dL 12.2-16.4 L 718-7) HCT (test code = 25.9 % 38.4-49.3 L 4544-3) MCV (test code = 85.8 fL 81.7-95.6 787-2) MCH (test code = 27.8 pg 26.1-32.7 785-6) MCHC (test code = 32.4 g/dL 31.2-35.0 786-4) RDW-SD (test code = 40.7 fL 38.5-51.6 25853-9) RDW-CV (test code = 13.1 % 12.1-15.4 788-0) PLT (test code = See_Comment H [Automated 777-3) message] The sy stem which generated this result transmitted reference range : 150 - 328 10*3/ ?L. The reference r ivett was not used to interpret this result as normal/abnormal . MPV (test code = 8.5 fL 9.8-13.0 L 03729-8) NRBC/100 WBC (test See_Comment [Automat ed code = 2803281434) message] The system which generated this result transmitted reference range : 0.0 - 10.0 /100 WBCs. The refer ence range was not u sed to interpret th is result as normal/abnormal . NRBC x10^3 (test code <0.01 See_Comment [Auto mated = [id number]) message] The s ystem which generated this result transmitted reference range : 10*3/?L. The reference range was not used to interpret this result as normal/abnormal . GRAN MAT (NEUT) % 57.7 % (test code = 770-8) IMM GRAN % (test code 0.40 % = 4293824684) LYMPH % (test code = 26.7 % 736-9) MONO % (test code = 7.6 % 5905-5) EOS % (test code = 6.6 % 713-8) BASO % (test code = 1.0 % 706-2) GRAN MAT x10^3(ANC) 4.55 10*3/uL 1.99-6.95 (test code = 7227011245) IMM GRAN x10^3 (test 0.03 10*3/uL 0.00-0.06 code = 2008228565) LYMPH x10^3 (test code 2.11 10*3/uL 1.09-3.23 = 731-0) MONO x10^3 (test code 0.60 10*3/uL 0.36-1.02 = 742-7) EOS x10^3 (test code = 0.52 10*3/uL 0.06-0.53 711-2) BASO x10^3 (test code 0.08 10*3/uL 0.01-0.09 = 704-7) Lab Interpretation Abnormal (test code = 83007-7) [facility] WITH [id number] 11:20:51 Test Item Value Reference Range Interpretation Comments WBC (test code = See_Comment [Automated 6690-2) message] The sy stem which generated this result transmitted reference range : 4.20 - 10.70 10*3/?L. The reference range was not used to interpret this result as normal/abnormal . RBC (test code = See_Comment L [Automated 789-8) message] The sy stem which generated this result transmitted reference range : 4.26 - 5.52 10*6/?L. The reference range was not used to interpret this result as normal/abnormal . HGB (test code = 8.4 g/dL 12.2-16.4 L 718-7) HCT (test code = 25.9 % 38.4-49.3 L 4544-3) MCV (test code = 85.8 fL 81.7-95.6 787-2) MCH (test code = 27.8 pg 26.1-32.7 785-6) MCHC (test code = 32.4 g/dL 31.2-35.0 786-4) RDW-SD (test code = 40.7 fL 38.5-51.6 48813-0) RDW-CV (test code = 13.1 % 12.1-15.4 788-0) PLT (test code = See_Comment H [Automated 777-3) message] The sy stem which generated this result transmitted reference range : 150 - 328 10*3/ ?L. The reference r ivett was not used to interpret this result as normal/abnormal . MPV (test code = 8.5 fL 9.8-13.0 L 24706-9) NRBC/100 WBC (test See_Comment [Automat ed code = 2298186178) message] The system which generated this result transmitted reference range : 0.0 - 10.0 /100 WBCs. The refer ence range was not u sed to interpret th is result as normal/abnormal . NRBC x10^3 (test code <0.01 See_Comment [Auto mated = [id number]) message] The s ystem which generated this result transmitted reference range : 10*3/?L. The reference range was not used to interpret this result as normal/abnormal . GRAN MAT (NEUT) % 57.7 % (test code = 770-8) IMM GRAN % (test code 0.40 % = 6005723687) LYMPH % (test code = 26.7 % 736-9) MONO % (test code = 7.6 % 5905-5) EOS % (test code = 6.6 % 713-8) BASO % (test code = 1.0 % 706-2) GRAN MAT x10^3(ANC) 4.55 10*3/uL 1.99-6.95 (test code = 0710337410) IMM GRAN x10^3 (test 0.03 10*3/uL 0.00-0.06 code = 2139222042) LYMPH x10^3 (test code 2.11 10*3/uL 1.09-3.23 = 731-0) MONO x10^3 (test code 0.60 10*3/uL 0.36-1.02 = 742-7) EOS x10^3 (test code = 0.52 10*3/uL 0.06-0.53 711-2) BASO x10^3 (test code 0.08 10*3/uL 0.01-0.09 = 704-7) Lab Interpretation Abnormal (test code = 40870-8) [facility] GLUCOSE (AUTOMATED)2020-11-24 00:56:34 Test Item Value Reference Range Interpretation Comments POCT GLU (test code = 7718526366) 117 mg/dL 70-110 H Lab Interpretation (test code = Abnormal 90533-3) [facility] GLUCOSE (AUTOMATED)2020-11-24 00:56:34 Test Item Value Reference Range Interpretation Comments POCT GLU (test code = 4827754923) 117 mg/dL 70-110 H Lab Interpretation (test code = Abnormal 34492-9) [facility] GLUCOSE (AUTOMATED)2020-11-23 22:35:14 Test Item Value Reference Range Interpretation Comments POCT GLU (test code = 0370396510) 248 mg/dL 70-110 H Lab Interpretation (test code = Abnormal 16940-9) [facility] GLUCOSE (AUTOMATED)2020-11-23 22:35:14 Test Item Value Reference Range Interpretation Comments POCT GLU (test code = 6431006225) 248 mg/dL 70-110 H Lab Interpretation (test code = Abnormal 99778-1) [facility] GLUCOSE (AUTOMATED)2020-11-23 20:02:44 Test Item Value Reference Range Interpretation Comments POCT GLU (test code = 7430733626) 187 mg/dL 70-110 H Lab Interpretation (test code = Abnormal 89106-3) [facility] GLUCOSE (AUTOMATED)2020-11-23 20:02:44 Test Item Value Reference Range Interpretation Comments POCT GLU (test code = 7481829864) 187 mg/dL 70-110 H Lab Interpretation (test code = Abnormal 58835-1) [facility] GLUCOSE (AUTOMATED)2020-11-23 16:27:07 Test Item Value Reference Range Interpretation Comments POCT GLU (test code = 7291157267) 206 mg/dL 70-110 H Lab Interpretation (test code = Abnormal 43527-9) [facility] GLUCOSE (AUTOMATED)2020-11-23 16:27:07 Test Item Value Reference Range Interpretation Comments POCT GLU (test code = 9629596098) 206 mg/dL 70-110 H Lab Interpretation (test code = Abnormal 84588-5) [id number]:55:20 Test Item Value Reference Range Interpretation Comments Case Report (test code Surgical Pathology ? ? = [id number]) ?Case: [id number] ? Authorizing Provider: ?Jerrica Peoples MD ? ? ?Collected: ? 11/17/2020 1135 ?Ordering Location: ? ? [facility] OR ? Received: ?11/17/2020 1338 ? Department ? Pathologist: ? Kenia, ? MD Sona ?Specimen: ? ?BONE, 3rd metatarsal head, FOOT, LEFT ? Final Diagnosis (test a2vffHBpJDUnt5nuVFZhrP code = 0701070544) FuZzEwMzNcZnRuYmpcdWMx IHtccnRmMVxlcGljOTQwMl wgblPaEALwuZIcK5Iaikyg JBfqZO3fGM1pbAcbkTLllL BuCYIaVjTht1mvn256xNHe e0yzEMMJeuvpiNu0oNdbY5 4ll2X7JlcgR44wjGIjNVD0 MXLuFOFreXMeCATxUBG6BL BurLQcO1pvLCMhVM3blqrr NRnoGLqdENLzdDE1NKPhdM NqI2VlAOGoRIjoBASbnat9 CqPvDt5uaIOxeHgtSTufRQ JkXHBsYWluXGZzMjBccGFy HCIjLWYNXxUiHKUKF9VdXP VGVCBUSElSRCBNRVRBVEFS Y9XMZKlXJQVaPUEYSsHSCS ABGN9IOdqdMNWjJAEkMYRh BXAHLHEPPP2GNRXRNPzRLD uPSRKjSY7MEH5UXXPKGzVQ My1DINRubHNvPZTfmuQLII K3bQQ6OFOueKYzUYWUUFXl EY5lRQ7vNVInUZY4GtZqYG XHWOPrgopzAGT9i3lykLUc XHNzdGVjZjIyMDAwXGFuc2 lcZGVmbGFuZzEwMzNcZnRu BgzdwMPrSWOmPaTea5rjf3 20nACwr1mrZJRoHpI7iHHy REFpuUeidoe7qPcxTjDdFP Tht3bjdoFdLfKuXJFrCABp NUMaxFMgT667SUGpVAazu4 ets2PxYIJdhJDyn2G8FCJJ YHkqCbNhU736k1xer9eeff KjsSB2MNSvIZQ8VIqevoQa ijR6FIsskHCvQxH9TNbkfr BxQOcndhSunrMfAzv2YBQl X800BPN8gNpnc2byUZP1GZ AxXJMtIvpwBw9qhJDqB518 NTHhXKXVPXCveVo2KEQeck YcqvQycRKDl987J496e3pt BMUfqwZziUbRfwxdk3buB6 19XHBhcGVydzEyMjQwXHBh uKOjyXH9DEYiQU0xixofRZ mzOOneEXEfxyN1IZKkkBNt O9IdXXNbYP1itiimEFA6GF hfXGMzYGP5FpCtRWMba8Bk pgh2AvIavp0fjs64PIE2r0 SqdDkzXVI6RVL6BoGrWu2o qUOkFPJuGC2xUvNcuEQbKG Dzvd93mIhtGGdfdxGwhN3q GqNqIMHkyYJwEZHoYI5boZ FpOIXwxU8trjaxROHdFmGh fclbFABcgSvydaXiIv2qaD ruMWU8NKlnE5jcxE5hQkF7 XIwjA9isrA9aKZb0KScwqG R9VBIgrT0yWI2coahzr9uf KVxbRFllPLAzwhE2abC0QY AmoYUjU0QqnP7wCSSvRS7g zejhv8etUYD5QXqqWCHvAQ Y3ZfWwWHPqb1Tjhok8ViMm k4JraJSnPQtbY99hs185HZ CmrkKzF7lujEPmpttfpGIt vdhzSLvrxaC7VYYyHYYaSM luXGYxXGZzMjBcbGFuZzEw MzNcaGljaFxmMVxkYmNoXG UkRHeuR5aiEoUjK3SxBDYn UwFelYCwCRcwkVS1QHArUX Url85tfCk7PNVsbhhhc8Yt ARPaiHKlrGCglY0cwgOtk3 cyNBCzKSFlPRDkR8XaXQS2 bBCiYYRuzGSzoAL5IQ2hvc AzAG7kJEDkEumvqhGmvIQt upMlCAAxENctq3wsIY5eSW EobPqxdX4bwMM0APWep4mv bLQfpJIwg8nxo5DwcwMzOM qmZZTvYMokHTQuNAOxHU7b FUTraIRshzFks7D5PryvnC GkwlqzWiwpmoB1YCwhewdz AYSaZFeuE3zfMtZsJAOprF noPzrit5QfIPTwJAUeKnwi cGFyfX0= Clinical Information BURN (test code = 6020942160) Gross Description (test q7ymhSZnNITcmWNSXLNtHk code = 1629231788) onueZeHWTkyEGbD9Hnkpuh HElfXE7sMG6cuTmkzSDviA NlVK0REQZcHgPwWBKglNTf evSzFuSkEMNozLZwdAA8QA MjVS3xbrlbUYjhNFwmMYGx mbE7IJDkuMUoF6OdUQApLM 7elimkHNJ6XEablO7risKX IpiuSk2tdHPrqAenNuCiPg NoYXJzZXQwXGZuaWwgQXJp XAu3jN5VEiwhGRX3FMWWZm ndRSYmCG2Yo8ygYZHhbKSd DJU7CXcpsZHhAIBuIYIlGL w8UVKfOTrcoACjOR7lgSks XqvrlKssc0FodKOzUVtaQT GqPVTzSWylCXVfAI1CKbVh NJy8ZwGbZJUjOEh2HVm7BN 8MUvZjSPYvUAVqYTL4QYKs PZw6ZHwxEV1PKMHmOTO1ZJ Z3XTjyNQQ8VZkpWUy7IAEk XFxmIEFyaWFsIFxcZnMgMT AtMIrddXFtYN5bePbihQDs blxmczIwXHBhciANClxwbG FpblxlcGljTmVzdERvYzEg DQpcbHRycGFyXGxpbjBccm luMCANClxsdHJjaFxmczIw IFNwZWNpbWVuIEEgaXMgcm LrBJd1IQEvQnAiv3ynzOLy XUgkICB3tZSdQUIuDLKcGE InCV29F6MvjqKlKVbpIGeh mzEoIfYsGTBjSz4nTCkfOo 9vdCwgbGVmdCwgdGhpcmQg cFG6HUIaogPnfREgKAGkLl RjzfKjY69jl4dioEOtm7Uj YSVlaB1hiLSkxUSvMBslvU OvNJKcdsGjSbWdJ26oeqDu KARjXpF6TMQcJUQ1MZWbUv PxaIklf8m5vVFrzxBgxoNc R8JxXLExjzArxABeC2ujAF CgGVOqwaDhhWXzs1l5IXnc G2lvPH1pvGH2wyOnh2PqeV HmPZ1xzmszcm6nVVRwFLPb pONogdJmDKXtgM5ycSDerW 1aEDUdQta7GMJspiUmgDne IHNwZWNpbWVuIGlzIGxvbm iqsJItgX0vcHd3PZLaV3Tx z13wVBFwpnFwu4QskXg3rR NsXADgiLhqOOk7ZYDpEVPw ULGhu6K0SZEdJ7BfD1vyoI OpeNgnna0jwRHsWX3PZQGv ciANClBhdWwgTXVueWVyIE 4KDPmNNRNfj3qhE7ttrRMT l6Onc3FducGuIGhwcFygsC 4gTHBnE13cc3LMc8SpXRYi CXoop3pnuJufy6XrhKZpGP eiUVGkmAZsERuilU7aKgHu k8vzdZn3ANtfrgO5ECHwcm 5AZdfidX1qTpZxy7dpyXq8 GIRQBkwyyeE1e0kzdIfyw5 MvfZDfHV1MNb1= Embedded Images (test code = 5478766579) [facility] [id number] 15:55:20 Test Item Value Reference Range Interpretation Comments Case Report (test code Surgical Pathology ? ? = [id number]) ?Case: [id number] ? Authorizing Provider: ?Jerrica Peoples MD ? ? ?Collected: ? 11/17/2020 1135 ?Ordering Location: ? ? [facility] OR ? Received: ?11/17/2020 1338 ? Department ? Pathologist: ? Kenia, ? MD Sona ?Specimen: ? ?BONE, 3rd metatarsal head, FOOT, LEFT ? Final Diagnosis (test i1ncrSFqSLWta1lvNKFzdC code = 3780739660) FuZzEwMzNcZnRuYmpcdWMx IHtccnRmMVxlcGljOTQwMl achwEtARYhuWJeV2Ahgvau XLdcJB4bIK6zbLwbfVNpaB BqFCQpYnQov2vkg044dVVo m3erJISHrqvpqZd3oIslJ6 4vj1F8EfneM15wkTFvRDH8 CPFvPTHmjBWtYCXqWUY9JI EyzVJlW3iwDNFjFH1movsk RTkjOApdHVVxvRZ7JHStrT HeR1KcCRHuLUzbVPUizkc3 JoTfIi4fdEVwbAdsCSuhRH JkXHBsYWluXGZzMjBccGFy UWQhQUBUGjSlXKCQV8LjBZ VGVCBUSElSRCBNRVRBVEFS A7LLOCyVZPTzVKLIIoXAES XKIG0XFgcyWYOoWIGdCUDq SJVDGOQFAS6TLSYFPJeECI sTHORpPK3YCK4XQOWAAaLZ Ww1GFJZqrXOvGXRrbwWPES S1aCG0JLGnhJPaMXEZJHXy FM8qDB3fVXOdAAM2TzMoNB WJSCUgundcUEX3e1ocwCHl XHNzdGVjZjIyMDAwXGFuc2 lcZGVmbGFuZzEwMzNcZnRu IuhjkYAdSWYuIvAnc8edg5 55jOQze6rbXFSuQyK2qKJh LJWvdJdvkyt8oUtdWtIcSA Xhj5mxujGqGfLyRUZuFWBn WOHhbOGwE879SEKpICpck7 nsy5VyUIQksQDui8R9XZUB MZwyTdEpY413b4kqu9rhbn GivWZ1TPEwJCT3EAxphiIw dsB8IIzxaALpXeH6EIegql TnMNhcowZncwPdGai4ZJTe V006DQS8fOkso6xyNQK7RP SjAEPzGqfhCw5htQRxE572 LKEpIYYEDNSwzMy0CNQger LnfnXliGAXx464Y104c6zo FLDvydXxtZtWcdgkk8pyB1 19XHBhcGVydzEyMjQwXHBh pUIdeEY1YQRqEF2rwemcDK cdFZqiMLYcqkK6PLKrtJNh R7ZiJRTjXT6twbitHNX6RB rpILPtUQU9MlWuBMRfn4Ke npw8DmIbsi1jmm47KSO0z9 DulGjyFYG0TXP5KcEkQa9g rSTeNSVaYH7vEkOwzBKyGK Gtsg06sJznZSyufzWekD8n YmLjSMYibDDjXOXhRS7ojE DcOETdpP4gdyysBTSgJdKn mwopEKYyyHhpauYsMj5mvB fxPJC4ENhlQ6kiqK2cWbY2 PYvuC4urwJ3kTXz8UEafqO Z6EKIksI1yGP3xosdgk5pk DEdsBBfcHZGrbmK8tyK9DW VdlIJwA4SvdY0wSOHaZG6d wwbwv6nuVPH9JCpyISSySF L8MsRxPHKet8Kzmdr1JkRr i0IbbOYzNIneL01bf432DZ CmlyGkD9abzZWaaxyvhIZk mwffWVvwdeT6YMShXIReDA luXGYxXGZzMjBcbGFuZzEw MzNcaGljaFxmMVxkYmNoXG PoGBmqT2teKzJpH3LoNBGb FnRthDLpRBxntNF2NYMiPZ Nzy66hsSy3BUVjgjwam8Iq MOMqzAHpwKTlrI2tjnVag2 hoGDMnDVOzWDYcI6KwKDM9 sRKcKFErdADmjFW1HR6soe CdOU9lEMFiJeuikyJteCRz mlJvYDCdHVvwd2gyHL8kDT EbgFjqbS8rqNX1VTOom5hh wVHulNIdn9hib2SaduQqYZ usJRCtQYxiHCZdAGIiRU1k ZAHkoJMgbsKbu9F6WbhqwT BnsnllJjikuyR8NGnlyexq FMHiOIkmG9cjOaUqTCWubD hyQxqev9UgIQXfMOCaJosg cGFyfX0= Clinical Information BURN (test code = 8791792428) Gross Description (test n2dvlITvRONehCOAIUNsDb code = 7586424463) keosUfFDZvmQHnW9Pcqpwa YMwqIZ5ySX3wpMdgxQSfwR EkPG6ZTBPhZrZuLQBbySQl mlMyHnCiCXTwgXJofFI5JS XnDD6wjdytXOwiHFxpFFEl otI0FOMliFBnL0FgDGRoXP 6alswvLDZ6EFnaiK8nrqON RgopHc3avCYywCsjAyUoTv NoYXJzZXQwXGZuaWwgQXJp IZj8yY8SKjgiVLO5IFENAr sgTKYfOS2Lo6pzTQLmyJWs TYA8LVgbxCBfUFZbFSCbBV q6FHJsEVujjYTwMV3daYuw GqmdhLhra1PmhJBfVWffRS BnOKQjNVheBIElLB9PTyOc YAh5CeJuPTVdAOa9WAq1XG 0ELvYoHMUxBVLtTDO8UMTl VKs6PBgwQV8RFDErVDO0PZ K0OSfwMZH7FQlhCWp4VIWc XFxmIEFyaWFsIFxcZnMgMT AfBIwvrBNpAC5wqGjmtZOu blxmczIwXHBhciANClxwbG FpblxlcGljTmVzdERvYzEg DQpcbHRycGFyXGxpbjBccm luMCANClxsdHJjaFxmczIw IFNwZWNpbWVuIEEgaXMgcm VaLIz0TVZiQrFsk7xifJMi JAjbZNX3cPQyLCGsAECuLC ZoHN67Q0EhxoAoJCdyEYdi opTsMrLxOBItEu6sYUgxCi 9vdCwgbGVmdCwgdGhpcmQg rLG2INWtbqTzrOHqEWQpJv TrofExV80dp2zmzWKpr2Zp AWXoiG1afIQhtVNeQJabjU QvPTWbciBbTrMrM33llaUd TULxZdI5WKVoRQN9UJPiWe UpiMovx5z8vWJodfOqccNx J8KfAXGtqpYdtOFtR4wtEX MtWSKzroTjjYZeb6b5NWjz D1idKZ4jqUR5wqUwp4SpcZ QuPK9fbithuo8fDSOxFCZs rIRlvhXiQCYvbC2keZLpeJ 9qTVRiXmx9NASklyByjPkt IHNwZWNpbWVuIGlzIGxvbm hylYOybR7dhDf9URBrV9La w24pBDSuzrQgz3DzoRs6qQ SfVMCouWdaDGk0PTZeQUPw HUDzi3O0FPCfA4LzK6skbC SasKouwy1udBCkTK8CHTTq ciANClBhdWwgTXVueWVyIE 5DDZlGMSOcg0rpQ9vpzBCN q6Ojv4LyzgKcBIretCoccY 8rFDBtN41sw9OMs6UkNMZy WAlqb1emhStbe0TynOThOM wdDAWcpXIzKZncxH6uUsDr n3lcsJk8IRpwljP8JEUyyc 4GXbeazW0xNgEhi1suaJz5 CKECZvtnvfM6n7dugAspv8 XbzTEoOG2ISf4= Embedded Images (test code = 0287567690) [facility] GLUCOSE (AUTOMATED)2020-11-23 13:12:29 Test Item Value Reference Range Interpretation Comments POCT GLU (test code = 3988977575) 160 mg/dL 70-110 H Lab Interpretation (test code = Abnormal 47575-5) [facility] GLUCOSE (AUTOMATED)2020-11-23 13:12:29 Test Item Value Reference Range Interpretation Comments POCT GLU (test code = 9717850917) 160 mg/dL 70-110 H Lab Interpretation (test code = Abnormal 92959-0) [facility] GLUCOSE (AUTOMATED)2020-11-23 10:03:31 Test Item Value Reference Range Interpretation Comments POCT GLU (test code = 6197570192) 156 mg/dL 70-110 H Lab Interpretation (test code = Abnormal 49370-7) [facility] GLUCOSE (AUTOMATED)2020-11-23 10:03:31 Test Item Value Reference Range Interpretation Comments POCT GLU (test code = 7328518526) 156 mg/dL 70-110 H Lab Interpretation (test code = Abnormal 64135-4) [facility] GLUCOSE (AUTOMATED)2020-11-23 07:21:07 Test Item Value Reference Range Interpretation Comments POCT GLU (test code = 8880613293) 211 mg/dL 70-110 H Lab Interpretation (test code = Abnormal 84387-4) [facility] GLUCOSE (AUTOMATED)2020-11-23 07:21:07 Test Item Value Reference Range Interpretation Comments POCT GLU (test code = 3175429221) 211 mg/dL 70-110 H Lab Interpretation (test code = Abnormal 35573-4) [facility] GLUCOSE (AUTOMATED)2020-11-23 03:37:17 Test Item Value Reference Range Interpretation Comments POCT GLU (test code = 7983033536) 214 mg/dL 70-110 H Lab Interpretation (test code = Abnormal 25402-1) [facility] GLUCOSE (AUTOMATED)2020-11-23 03:37:17 Test Item Value Reference Range Interpretation Comments POCT GLU (test code = 4087798298) 214 mg/dL 70-110 H Lab Interpretation (test code = Abnormal 68443-1) [facility] GLUCOSE (AUTOMATED)2020-11-23 01:06:35 Test Item Value Reference Range Interpretation Comments POCT GLU (test code = 6635385041) 190 mg/dL 70-110 H Lab Interpretation (test code = Abnormal 08033-8) [facility] GLUCOSE (AUTOMATED)2020-11-23 01:06:35 Test Item Value Reference Range Interpretation Comments POCT GLU (test code = 9528669971) 190 mg/dL 70-110 H Lab Interpretation (test code = Abnormal 06873-3) [facility] GLUCOSE (AUTOMATED)2020-11-22 22:21:31 Test Item Value Reference Range Interpretation Comments POCT GLU (test code = 0332508389) 327 mg/dL 70-110 H Lab Interpretation (test code = Abnormal 94849-8) [facility] GLUCOSE (AUTOMATED)2020-11-22 22:21:31 Test Item Value Reference Range Interpretation Comments POCT GLU (test code = 1402860141) 337 mg/dL 70-110 H Lab Interpretation (test code = Abnormal 97462-2) [facility] GLUCOSE (AUTOMATED)2020-11-22 22:21:31 Test Item Value Reference Range Interpretation Comments POCT GLU (test code = 0762436077) 327 mg/dL 70-110 H Lab Interpretation (test code = Abnormal 39051-8) [facility] GLUCOSE (AUTOMATED)2020-11-22 22:21:31 Test Item Value Reference Range Interpretation Comments POCT GLU (test code = 4815861628) 337 mg/dL 70-110 H Lab Interpretation (test code = Abnormal 46401-4) [facility] GLUCOSE (AUTOMATED)2020-11-22 16:55:18 Test Item Value Reference Range Interpretation Comments POCT GLU (test code = 4783796390) 194 mg/dL 70-110 H Lab Interpretation (test code = Abnormal 69817-1) [facility] GLUCOSE (AUTOMATED)2020-11-22 16:55:18 Test Item Value Reference Range Interpretation Comments POCT GLU (test code = 5139599118) 194 mg/dL 70-110 H Lab Interpretation (test code = Abnormal 35696-1) [facility] GLUCOSE (AUTOMATED)2020-11-22 14:19:27 Test Item Value Reference Range Interpretation Comments POCT GLU (test code = 2706268933) 149 mg/dL 70-110 H Lab Interpretation (test code = Abnormal 69510-6) [facility] GLUCOSE (AUTOMATED)2020-11-22 14:19:27 Test Item Value Reference Range Interpretation Comments POCT GLU (test code = 3724760654) 149 mg/dL 70-110 H Lab Interpretation (test code = Abnormal 87762-5) [facility] GLUCOSE (AUTOMATED)2020-11-22 12:14:46 Test Item Value Reference Range Interpretation Comments POCT GLU (test code = 162 mg/dL 70-110 H OTS: F AIL Observer: [id number]) 150516 Lab Interpretation (test Abnormal code = 02139-2) [facility] GLUCOSE (AUTOMATED)2020-11-22 12:14:46 Test Item Value Reference Range Interpretation Comments POCT GLU (test code = 162 mg/dL 70-110 H OTS: F AIL Observer: [id number]) [id number] Lab Interpretation (test Abnormal code = 32806-9) [facility] METABOLIC PANEL (NA, K, CL, CO2, GLUCOSE, BUN, CREATININE, CA)2020-11-22 09:41:59 Test Item Value Reference Range Interpretation Comments NA (test code = 135 mmol/L 135-145 4608670712) K (test code = 4.2 mmol/L 3.5-5.0 2874728286) CL (test code = 102 mmol/L 98-108 6474302130) CO2 TOTAL (test code = 28 mmol/L 23-31 6034569007) AGAP (test code = 2-16 9796012943) BUN (test code = 13 mg/dL 7-23 7441622060) GLUCOSE (test code = 124 mg/dL 70-110 H 6669434407) CREATININE (test code = 0.55 mg/dL 0.60-1.25 L 5407756711) CALCIUM (test code = 8.9 mg/dL 8.6-10.6 1183733429) eGFR (test code = mL/min/1.73m2 5358906718) PATTI (test code = PATTI) Association of Glomerular Filtration Rate (GFR) and Staging of Kidney Disease* + --+ --+ ------+| GFR (mL/min/1.73 m2) ?| With Kidney Damage ?| ?Without Kidney Damage+ --------+ --------+ +| ?>90 ?| ?Stage one ?| ? Normal ?+ ---+ ---+ -------+| ?60-89 ?| ?Stage two ?| ? Decreased GFR ? + --+ --+ ------+| ?30-59 ?| ?Stage three ?| ? Stage three ? + --+ --+ ------+| ?15-29 ?| ?Stage four ? | ? Stage four ?+ ---+ ---+ -------+| ?<15 (or dialysis) ? ?| ?Stage five ? | ? Stage five ?+ ---+ ---+ -------+ *Each stage assumes the associated GFR level has been in effect for at least three months. ?Stages 1 to 5, with or without kidney disease, indicate chronic kidney disease. Notes: Determination of stages one and two (with eGFR >59mL/min/1.73 m2) requires estimation of kidney damage for at least three months as defined by structural or functional abnormalities of the kidney, manifested by either:Pathological abnormalities or Markers of kidney damage (including abnormalities in the composition of the blood or urine or abnormalities in imaging tests). Lab Interpretation Abnormal (test code = 01451-1) [facility] Test Item Value Reference Range Interpretation Comments MAGNESIUM (test code = 2991659785) 2.5 mg/dL 1.7-2.4 H Lab Interpretation (test code = Abnormal 05016-0) [facility] Test Item Value Reference Range Interpretation Comments PHOSPHORUS (test code = 2186778050) 3.9 mg/dL 2.5-5.0 Lab Interpretation (test code = Normal 30955-0) [facility] (NA, K, CL, CO2, GLUCOSE, BUN, CREATININE, [place])2020-11-22 09:41:59 Test Item Value Reference Range Interpretation Comments NA (test code = 135 mmol/L 135-145 4654166553) K (test code = 4.2 mmol/L 3.5-5.0 1710180636) CL (test code = 102 mmol/L 98-108 4012638238) CO2 TOTAL (test code = 28 mmol/L 23-31 4375210887) AGAP (test code = 2-16 8318595877) BUN (test code = 13 mg/dL 7-23 7420263289) GLUCOSE (test code = 124 mg/dL 70-110 H 1966977331) CREATININE (test code = 0.55 mg/dL 0.60-1.25 L 5996294449) CALCIUM (test code = 8.9 mg/dL 8.6-10.6 0675911687) eGFR (test code = mL/min/1.73m2 7289107806) PATTI (test code = PATTI) Association of Glomerular Filtration Rate (GFR) and Staging of Kidney Disease* + --+ --+ ------+| GFR (mL/min/1.73 m2) ?| With Kidney Damage ?| ?Without Kidney Damage+ --------+ --------+ +| ?>90 ?| ?Stage one ?| ? Normal ?+ ---+ ---+ -------+| ?60-89 ?| ?Stage two ?| ? Decreased GFR ? + --+ --+ ------+| ?30-59 ?| ?Stage three ?| ? Stage three ? + --+ --+ ------+| ?15-29 ?| ?Stage four ? | ? Stage four ?+ ---+ ---+ -------+| ?<15 (or dialysis) ? ?| ?Stage five ? | ? Stage five ?+ ---+ ---+ -------+ *Each stage assumes the associated GFR level has been in effect for at least three months. ?Stages 1 to 5, with or without kidney disease, indicate chronic kidney disease. Notes: Determination of stages one and two (with eGFR >59mL/min/1.73 m2) requires estimation of kidney damage for at least three months as defined by structural or functional abnormalities of the kidney, manifested by either:Pathological abnormalities or Markers of kidney damage (including abnormalities in the composition of the blood or urine or abnormalities in imaging tests). Lab Interpretation Abnormal (test code = 54850-0) [facility] Test Item Value Reference Range Interpretation Comments MAGNESIUM (test code = 2621042001) 2.5 mg/dL 1.7-2.4 H Lab Interpretation (test code = Abnormal 86056-9) [facility]59 Test Item Value Reference Range Interpretation Comments PHOSPHORUS (test code = 4671209964) 3.9 mg/dL 2.5-5.0 Lab Interpretation (test code = Normal 90116-0) [facility] WITH [id number] 09:24:00 Test Item Value Reference Range Interpretation Comments WBC (test code = See_Comment [Automated 6690-2) message] The sy stem which generated this result transmitted reference range : 4.20 - 10.70 10*3/?L. The reference range was not used to interpret this result as normal/abnormal . RBC (test code = See_Comment L [Automated 789-8) message] The sy stem which generated this result transmitted reference range : 4.26 - 5.52 10*6/?L. The reference range was not used to interpret this result as normal/abnormal . HGB (test code = 8.6 g/dL 12.2-16.4 L 718-7) HCT (test code = 26.5 % 38.4-49.3 L 4544-3) MCV (test code = 86.9 fL 81.7-95.6 787-2) MCH (test code = 28.2 pg 26.1-32.7 785-6) MCHC (test code = 32.5 g/dL 31.2-35.0 786-4) RDW-SD (test code = 40.7 fL 38.5-51.6 21483-8) RDW-CV (test code = 12.9 % 12.1-15.4 788-0) PLT (test code = See_Comment H [Automated 777-3) message] The sy stem which generated this result transmitted reference range : 150 - 328 10*3/ ?L. The reference r ivett was not used to interpret this result as normal/abnormal . MPV (test code = 8.8 fL 9.8-13.0 L 27236-7) NRBC/100 WBC (test See_Comment [Automat ed code = 2620055206) message] The system which generated this result transmitted reference range : 0.0 - 10.0 /100 WBCs. The refer ence range was not u sed to interpret th is result as normal/abnormal . NRBC x10^3 (test code <0.01 See_Comment [Auto mated = 1540689782) message] The s ystem which generated this result transmitted reference range : 10*3/?L. The reference range was not used to interpret this result as normal/abnormal . GRAN MAT (NEUT) % 62.7 % (test code = 770-8) IMM GRAN % (test code 0.20 % = 5416163129) LYMPH % (test code = 24.2 % 736-9) MONO % (test code = 7.5 % 5905-5) EOS % (test code = 4.6 % 713-8) BASO % (test code = 0.8 % 706-2) GRAN MAT x10^3(ANC) 5.19 10*3/uL 1.99-6.95 (test code = 8281554215) IMM GRAN x10^3 (test <0.03 0.00-0.06 code = 9642184552) LYMPH x10^3 (test code 2.00 10*3/uL 1.09-3.23 = 731-0) MONO x10^3 (test code 0.62 10*3/uL 0.36-1.02 = 742-7) EOS x10^3 (test code = 0.38 10*3/uL 0.06-0.53 711-2) BASO x10^3 (test code 0.07 10*3/uL 0.01-0.09 = 704-7) Lab Interpretation Abnormal (test code = 65920-8) [facility] WITH [id number] 09:24:00 Test Item Value Reference Range Interpretation Comments WBC (test code = See_Comment [Automated 8290-2) message] The sy stem which generated this result transmitted reference range : 4.20 - 10.70 10*3/?L. The reference range was not used to interpret this result as normal/abnormal . RBC (test code = See_Comment L [Automated 219-8) message] The sy stem which generated this result transmitted reference range : 4.26 - 5.52 10*6/?L. The reference range was not used to interpret this result as normal/abnormal . HGB (test code = 8.6 g/dL 12.2-16.4 L 718-7) HCT (test code = 26.5 % 38.4-49.3 L 4544-3) MCV (test code = 86.9 fL 81.7-95.6 787-2) MCH (test code = 28.2 pg 26.1-32.7 785-6) MCHC (test code = 32.5 g/dL 31.2-35.0 786-4) RDW-SD (test code = 40.7 fL 38.5-51.6 35084-0) RDW-CV (test code = 12.9 % 12.1-15.4 788-0) PLT (test code = See_Comment H [Automated 777-3) message] The sy stem which generated this result transmitted reference range : 150 - 328 10*3/ ?L. The reference r ivett was not used to interpret this result as normal/abnormal . MPV (test code = 8.8 fL 9.8-13.0 L 88250-1) NRBC/100 WBC (test See_Comment [Automat ed code = 9130968593) message] The system which generated this result transmitted reference range : 0.0 - 10.0 /100 WBCs. The refer ence range was not u sed to interpret th is result as normal/abnormal . NRBC x10^3 (test code <0.01 See_Comment [Auto mated = 7583857691) message] The s ystem which generated this result transmitted reference range : 10*3/?L. The reference range was not used to interpret this result as normal/abnormal . GRAN MAT (NEUT) % 62.7 % (test code = 770-8) IMM GRAN % (test code 0.20 % = 0845885096) LYMPH % (test code = 24.2 % 736-9) MONO % (test code = 7.5 % 5905-5) EOS % (test code = 4.6 % 713-8) BASO % (test code = 0.8 % 706-2) GRAN MAT x10^3(ANC) 5.19 10*3/uL 1.99-6.95 (test code = 0148988193) IMM GRAN x10^3 (test <0.03 0.00-0.06 code = 3000813546) LYMPH x10^3 (test code 2.00 10*3/uL 1.09-3.23 = 731-0) MONO x10^3 (test code 0.62 10*3/uL 0.36-1.02 = 742-7) EOS x10^3 (test code = 0.38 10*3/uL 0.06-0.53 711-2) BASO x10^3 (test code 0.07 10*3/uL 0.01-0.09 = 704-7) Lab Interpretation Abnormal (test code = 81846-4) [facility] GLUCOSE (AUTOMATED)2020-11-22 09:09:48 Test Item Value Reference Range Interpretation Comments POCT GLU (test code = 5086241492) 130 mg/dL 70-110 H Lab Interpretation (test code = Abnormal 28736-8) [facility] GLUCOSE (AUTOMATED)2020-11-22 09:09:48 Test Item Value Reference Range Interpretation Comments POCT GLU (test code = 6244960064) 130 mg/dL 70-110 H Lab Interpretation (test code = Abnormal 69120-6) [facility] GLUCOSE (AUTOMATED)2020-11-22 05:54:35 Test Item Value Reference Range Interpretation Comments POCT GLU (test code = 8881663138) 184 mg/dL 70-110 H Lab Interpretation (test code = Abnormal 51298-9) [facility] GLUCOSE (AUTOMATED)2020-11-22 05:54:35 Test Item Value Reference Range Interpretation Comments POCT GLU (test code = 7835411079) 184 mg/dL 70-110 H Lab Interpretation (test code = Abnormal 11124-7) [facility] GLUCOSE (AUTOMATED)2020-11-22 01:54:20 Test Item Value Reference Range Interpretation Comments POCT GLU (test code = 3208459051) 248 mg/dL 70-110 H Lab Interpretation (test code = Abnormal 99049-1) [facility] GLUCOSE (AUTOMATED)2020-11-22 01:54:20 Test Item Value Reference Range Interpretation Comments POCT GLU (test code = 4347580535) 248 mg/dL 70-110 H Lab Interpretation (test code = Abnormal 37150-5) [facility] GLUCOSE (AUTOMATED)2020-11-21 23:10:48 Test Item Value Reference Range Interpretation Comments POCT GLU (test code = 9210631233) 296 mg/dL 70-110 H Lab Interpretation (test code = Abnormal 54557-0) [facility] GLUCOSE (AUTOMATED)2020-11-21 23:10:48 Test Item Value Reference Range Interpretation Comments POCT GLU (test code = 4352512321) 296 mg/dL 70-110 H Lab Interpretation (test code = Abnormal 85340-2) [facility] GLUCOSE (AUTOMATED)2020-11-21 18:23:05 Test Item Value Reference Range Interpretation Comments POCT GLU (test code = 7920392652) 210 mg/dL 70-110 H Lab Interpretation (test code = Abnormal 04799-0) [facility] GLUCOSE (AUTOMATED)2020-11-21 18:23:05 Test Item Value Reference Range Interpretation Comments POCT GLU (test code = 7094727065) 210 mg/dL 70-110 H Lab Interpretation (test code = Abnormal 85466-4) [facility] GLUCOSE (AUTOMATED)2020-11-21 12:41:23 Test Item Value Reference Range Interpretation Comments POCT GLU (test code = 4055273091) 170 mg/dL 70-110 H Lab Interpretation (test code = Abnormal 22203-2) [facility] GLUCOSE (AUTOMATED)2020-11-21 12:41:23 Test Item Value Reference Range Interpretation Comments POCT GLU (test code = 3405435418) 170 mg/dL 70-110 H Lab Interpretation (test code = Abnormal 35098-4) [facility] (NA, K, CL, CO2, GLUCOSE, BUN, CREATININE, CA)2020-11-21 10:20:17 Test Item Value Reference Range Interpretation Comments NA (test code = 133 mmol/L 135-145 L 9688675587) K (test code = 4.4 mmol/L 3.5-5.0 3966436257) CL (test code = 99 mmol/L 98-108 6670826385) CO2 TOTAL (test code = 27 mmol/L 23-31 7698951349) AGAP (test code = 2-16 1750067768) BUN (test code = 14 mg/dL 7-23 4771681227) GLUCOSE (test code = 167 mg/dL 70-110 H 0811019286) CREATININE (test code = 0.56 mg/dL 0.60-1.25 L 7768233852) CALCIUM (test code = 8.8 mg/dL 8.6-10.6 2556732063) eGFR (test code = mL/min/1.73m2 5911071522) PATTI (test code = PATTI) Association of Glomerular Filtration Rate (GFR) and Staging of Kidney Disease* + --+ --+ ------+| GFR (mL/min/1.73 m2) ?| With Kidney Damage ?| ?Without Kidney Damage+ --------+ --------+ +| ?>90 ?| ?Stage one ?| ? Normal ?+ ---+ ---+ -------+| ?60-89 ?| ?Stage two ?| ? Decreased GFR ? + --+ --+ ------+| ?30-59 ?| ?Stage three ?| ? Stage three ? + --+ --+ ------+| ?15-29 ?| ?Stage four ? | ? Stage four ?+ ---+ ---+ -------+| ?<15 (or dialysis) ? ?| ?Stage five ? | ? Stage five ?+ ---+ ---+ -------+ *Each stage assumes the associated GFR level has been in effect for at least three months. ?Stages 1 to 5, with or without kidney disease, indicate chronic kidney disease. Notes: Determination of stages one and two (with eGFR >59mL/min/1.73 m2) requires estimation of kidney damage for at least three months as defined by structural or functional abnormalities of the kidney, manifested by either:Pathological abnormalities or Markers of kidney damage (including abnormalities in the composition of the blood or urine or abnormalities in imaging tests). Lab Interpretation Abnormal (test code = 83271-9) [facility] Test Item Value Reference Range Interpretation Comments MAGNESIUM (test code = 5738752643) 2.3 mg/dL 1.7-2.4 Lab Interpretation (test code = Normal 31915-0) [facility] (NA, K, CL, CO2, GLUCOSE, BUN, CREATININE, CA)2020-11-21 10:20:17 Test Item Value Reference Range Interpretation Comments NA (test code = 133 mmol/L 135-145 L 9201842644) K (test code = 4.4 mmol/L 3.5-5.0 0876024418) CL (test code = 99 mmol/L 98-108 4300076383) CO2 TOTAL (test code = 27 mmol/L 23-31 8493569626) AGAP (test code = 2-16 5486698751) BUN (test code = 14 mg/dL 7-23 4130505137) GLUCOSE (test code = 167 mg/dL 70-110 H 2379402806) CREATININE (test code = 0.56 mg/dL 0.60-1.25 L 9193516320) CALCIUM (test code = 8.8 mg/dL 8.6-10.6 0725068257) eGFR (test code = mL/min/1.73m2 7733161870) PATTI (test code = PATTI) Association of Glomerular Filtration Rate (GFR) and Staging of Kidney Disease* + --+ --+ ------+| GFR (mL/min/1.73 m2) ?| With Kidney Damage ?| ?Without Kidney Damage+ --------+ --------+ +| ?>90 ?| ?Stage one ?| ? Normal ?+ ---+ ---+ -------+| ?60-89 ?| ?Stage two ?| ? Decreased GFR ? + --+ --+ ------+| ?30-59 ?| ?Stage three ?| ? Stage three ? + --+ --+ ------+| ?15-29 ?| ?Stage four ? | ? Stage four ?+ ---+ ---+ -------+| ?<15 (or dialysis) ? ?| ?Stage five ? | ? Stage five ?+ ---+ ---+ -------+ *Each stage assumes the associated GFR level has been in effect for at least three months. ?Stages 1 to 5, with or without kidney disease, indicate chronic kidney disease. Notes: Determination of stages one and two (with eGFR >59mL/min/1.73 m2) requires estimation of kidney damage for at least three months as defined by structural or functional abnormalities of the kidney, manifested by either:Pathological abnormalities or Markers of kidney damage (including abnormalities in the composition of the blood or urine or abnormalities in imaging tests). Lab Interpretation Abnormal (test code = 23146-6) [facility]17 Test Item Value Reference Range Interpretation Comments MAGNESIUM (test code = 1150156418) 2.3 mg/dL 1.7-2.4 Lab Interpretation (test code = Normal 04680-4) [facility] WITH [id number] 09:57:13 Test Item Value Reference Range Interpretation Comments WBC (test code = See_Comment [Automated 6690-2) message] The sy stem which generated this result transmitted reference range : 4.20 - 10.70 10*3/?L. The reference range was not used to interpret this result as normal/abnormal . RBC (test code = See_Comment L [Automated 789-8) message] The sy stem which generated this result transmitted reference range : 4.26 - 5.52 10*6/?L. The reference range was not used to interpret this result as normal/abnormal . HGB (test code = 8.1 g/dL 12.2-16.4 L 718-7) HCT (test code = 25.0 % 38.4-49.3 L 4544-3) MCV (test code = 86.8 fL 81.7-95.6 787-2) MCH (test code = 28.1 pg 26.1-32.7 785-6) MCHC (test code = 32.4 g/dL 31.2-35.0 786-4) RDW-SD (test code = 42.0 fL 38.5-51.6 26131-8) RDW-CV (test code = 13.1 % 12.1-15.4 788-0) PLT (test code = See_Comment H [Automated 777-3) message] The sy stem which generated this result transmitted reference range : 150 - 328 10*3/ ?L. The reference r ivett was not used to interpret this result as normal/abnormal . MPV (test code = 8.7 fL 9.8-13.0 L 22796-3) NRBC/100 WBC (test See_Comment [Automat ed code = 2983643689) message] The system which generated this result transmitted reference range : 0.0 - 10.0 /100 WBCs. The refer ence range was not u sed to interpret th is result as normal/abnormal . NRBC x10^3 (test code <0.01 See_Comment [Auto mated = 7312990690) message] The s ystem which generated this result transmitted reference range : 10*3/?L. The reference range was not used to interpret this result as normal/abnormal . GRAN MAT (NEUT) % 67.4 % (test code = 770-8) IMM GRAN % (test code 0.40 % = 9200266837) LYMPH % (test code = 20.8 % 736-9) MONO % (test code = 7.6 % 5905-5) EOS % (test code = 3.3 % 713-8) BASO % (test code = 0.5 % 706-2) GRAN MAT x10^3(ANC) 6.25 10*3/uL 1.99-6.95 (test code = 6996382413) IMM GRAN x10^3 (test 0.04 10*3/uL 0.00-0.06 code = 2520953333) LYMPH x10^3 (test code 1.93 10*3/uL 1.09-3.23 = 731-0) MONO x10^3 (test code 0.71 10*3/uL 0.36-1.02 = 742-7) EOS x10^3 (test code = 0.31 10*3/uL 0.06-0.53 711-2) BASO x10^3 (test code 0.05 10*3/uL 0.01-0.09 = 704-7) Lab Interpretation Abnormal (test code = 64143-3) [facility] WITH [id number] 09:57:13 Test Item Value Reference Range Interpretation Comments WBC (test code = See_Comment [Automated 5390-2) message] The sy stem which generated this result transmitted reference range : 4.20 - 10.70 10*3/?L. The reference range was not used to interpret this result as normal/abnormal . RBC (test code = See_Comment L [Automated 319-8) message] The sy stem which generated this result transmitted reference range : 4.26 - 5.52 10*6/?L. The reference range was not used to interpret this result as normal/abnormal . HGB (test code = 8.1 g/dL 12.2-16.4 L 718-7) HCT (test code = 25.0 % 38.4-49.3 L 4544-3) MCV (test code = 86.8 fL 81.7-95.6 787-2) MCH (test code = 28.1 pg 26.1-32.7 785-6) MCHC (test code = 32.4 g/dL 31.2-35.0 786-4) RDW-SD (test code = 42.0 fL 38.5-51.6 62529-5) RDW-CV (test code = 13.1 % 12.1-15.4 788-0) PLT (test code = See_Comment H [Automated 777-3) message] The sy stem which generated this result transmitted reference range : 150 - 328 10*3/ ?L. The reference r ivett was not used to interpret this result as normal/abnormal . MPV (test code = 8.7 fL 9.8-13.0 L 64819-8) NRBC/100 WBC (test See_Comment [Automat ed code = 0978677743) message] The system which generated this result transmitted reference range : 0.0 - 10.0 /100 WBCs. The refer ence range was not u sed to interpret th is result as normal/abnormal . NRBC x10^3 (test code <0.01 See_Comment [Auto mated = 0715051948) message] The s ystem which generated this result transmitted reference range : 10*3/?L. The reference range was not used to interpret this result as normal/abnormal . GRAN MAT (NEUT) % 67.4 % (test code = 770-8) IMM GRAN % (test code 0.40 % = 5213596543) LYMPH % (test code = 20.8 % 736-9) MONO % (test code = 7.6 % 5905-5) EOS % (test code = 3.3 % 713-8) BASO % (test code = 0.5 % 706-2) GRAN MAT x10^3(ANC) 6.25 10*3/uL 1.99-6.95 (test code = 8151794851) IMM GRAN x10^3 (test 0.04 10*3/uL 0.00-0.06 code = 3255254419) LYMPH x10^3 (test code 1.93 10*3/uL 1.09-3.23 = 731-0) MONO x10^3 (test code 0.71 10*3/uL 0.36-1.02 = 742-7) EOS x10^3 (test code = 0.31 10*3/uL 0.06-0.53 711-2) BASO x10^3 (test code 0.05 10*3/uL 0.01-0.09 = 704-7) Lab Interpretation Abnormal (test code = 56718-9) [facility] GLUCOSE (AUTOMATED)2020-11-21 01:53:43 Test Item Value Reference Range Interpretation Comments POCT GLU (test code = 6896694025) 144 mg/dL 70-110 H Lab Interpretation (test code = Abnormal 03531-9) [facility] GLUCOSE (AUTOMATED)2020-11-21 01:53:43 Test Item Value Reference Range Interpretation Comments POCT GLU (test code = 7804498245) 144 mg/dL 70-110 H Lab Interpretation (test code = Abnormal 14566-5) [facility] GLUCOSE (AUTOMATED)2020-11-20 21:19:27 Test Item Value Reference Range Interpretation Comments POCT GLU (test code = 1815708551) 188 mg/dL 70-110 H Lab Interpretation (test code = Abnormal 94542-0) [facility] GLUCOSE (AUTOMATED)2020-11-20 21:19:27 Test Item Value Reference Range Interpretation Comments POCT GLU (test code = 0443066305) 188 mg/dL 70-110 H Lab Interpretation (test code = Abnormal 39777-6) [facility] GLUCOSE (AUTOMATED)2020-11-20 19:36:34 Test Item Value Reference Range Interpretation Comments POCT GLU (test code = 9524488757) 181 mg/dL 70-110 H Lab Interpretation (test code = Abnormal 87015-0) [facility] GLUCOSE (AUTOMATED)2020-11-20 19:36:34 Test Item Value Reference Range Interpretation Comments POCT GLU (test code = 9366565360) 181 mg/dL 70-110 H Lab Interpretation (test code = Abnormal 04213-4) [facility] GLUCOSE (AUTOMATED)2020-11-20 13:16:18 Test Item Value Reference Range Interpretation Comments POCT GLU (test code = 6495749606) 113 mg/dL 70-110 H Lab Interpretation (test code = Abnormal 69845-4) [facility] GLUCOSE (AUTOMATED)2020-11-20 13:16:18 Test Item Value Reference Range Interpretation Comments POCT GLU (test code = 4987904387) 113 mg/dL 70-110 H Lab Interpretation (test code = Abnormal 41301-8) [facility] METABOLIC PANEL (NA, K, CL, CO2, GLUCOSE, BUN, CREATININE, CA)2020-11-20 09:32:59 Test Item Value Reference Range Interpretation Comments NA (test code = 135 mmol/L 135-145 8313190234) K (test code = 4.4 mmol/L 3.5-5.0 4426796164) CL (test code = 102 mmol/L 98-108 4200993956) CO2 TOTAL (test code = 28 mmol/L 23-31 3279658664) AGAP (test code = 2-16 4675658307) BUN (test code = 13 mg/dL 7-23 9524721206) GLUCOSE (test code = 110 mg/dL 70-110 5944802101) CREATININE (test code = 0.50 mg/dL 0.60-1.25 L 2793827833) CALCIUM (test code = 8.5 mg/dL 8.6-10.6 L 4815469246) eGFR (test code = mL/min/1.73m2 7077809010) PATTI (test code = PATTI) Association of Glomerular Filtration Rate (GFR) and Staging of Kidney Disease* + --+ --+ ------+| GFR (mL/min/1.73 m2) ?| With Kidney Damage ?| ?Without Kidney Damage+ --------+ --------+ +| ?>90 ?| ?Stage one ?| ? Normal ?+ ---+ ---+ -------+| ?60-89 ?| ?Stage two ?| ? Decreased GFR ? + --+ --+ ------+| ?30-59 ?| ?Stage three ?| ? Stage three ? + --+ --+ ------+| ?15-29 ?| ?Stage four ? | ? Stage four ?+ ---+ ---+ -------+| ?<15 (or dialysis) ? ?| ?Stage five ? | ? Stage five ?+ ---+ ---+ -------+ *Each stage assumes the associated GFR level has been in effect for at least three months. ?Stages 1 to 5, with or without kidney disease, indicate chronic kidney disease. Notes: Determination of stages one and two (with eGFR >59mL/min/1.73 m2) requires estimation of kidney damage for at least three months as defined by structural or functional abnormalities of the kidney, manifested by either:Pathological abnormalities or Markers of kidney damage (including abnormalities in the composition of the blood or urine or abnormalities in imaging tests). Lab Interpretation Abnormal (test code = 97664-3) [facility]59 Test Item Value Reference Range Interpretation Comments MAGNESIUM (test code = 8828757861) 2.3 mg/dL 1.7-2.4 Lab Interpretation (test code = Normal 99912-7) [facility]:32:59 Test Item Value Reference Range Interpretation Comments PHOSPHORUS (test code = 3190746585) 4.1 mg/dL 2.5-5.0 Lab Interpretation (test code = Normal 53324-2) [facility] (NA, K, CL, CO2, GLUCOSE, BUN, CREATININE, CA)2020-11-20 09:32:59 Test Item Value Reference Range Interpretation Comments NA (test code = 135 mmol/L 135-145 7284122603) K (test code = 4.4 mmol/L 3.5-5.0 2013687856) CL (test code = 102 mmol/L 98-108 3569528044) CO2 TOTAL (test code = 28 mmol/L 23-31 6867319427) AGAP (test code = 2-16 4611418134) BUN (test code = 13 mg/dL 7-23 3630696839) GLUCOSE (test code = 110 mg/dL 70-110 9693308279) CREATININE (test code = 0.50 mg/dL 0.60-1.25 L 5923412979) CALCIUM (test code = 8.5 mg/dL 8.6-10.6 L 0541126068) eGFR (test code = mL/min/1.73m2 4029816545) PATTI (test code = PATTI) Association of Glomerular Filtration Rate (GFR) and Staging of Kidney Disease* + --+ --+ ------+| GFR (mL/min/1.73 m2) ?| With Kidney Damage ?| ?Without Kidney Damage+ --------+ --------+ +| ?>90 ?| ?Stage one ?| ? Normal ?+ ---+ ---+ -------+| ?60-89 ?| ?Stage two ?| ? Decreased GFR ? + --+ --+ ------+| ?30-59 ?| ?Stage three ?| ? Stage three ? + --+ --+ ------+| ?15-29 ?| ?Stage four ? | ? Stage four ?+ ---+ ---+ -------+| ?<15 (or dialysis) ? ?| ?Stage five ? | ? Stage five ?+ ---+ ---+ -------+ *Each stage assumes the associated GFR level has been in effect for at least three months. ?Stages 1 to 5, with or without kidney disease, indicate chronic kidney disease. Notes: Determination of stages one and two (with eGFR >59mL/min/1.73 m2) requires estimation of kidney damage for at least three months as defined by structural or functional abnormalities of the kidney, manifested by either:Pathological abnormalities or Markers of kidney damage (including abnormalities in the composition of the blood or urine or abnormalities in imaging tests). Lab Interpretation Abnormal (test code = 59580-5) [facility]:32:59 Test Item Value Reference Range Interpretation Comments MAGNESIUM (test code = 1066417409) 2.3 mg/dL 1.7-2.4 Lab Interpretation (test code = Normal 06302-0) [facility]:32:59 Test Item Value Reference Range Interpretation Comments PHOSPHORUS (test code = 7345629150) 4.1 mg/dL 2.5-5.0 Lab Interpretation (test code = Normal 56277-5) [facility] [id number] 08:51:37 Test Item Value Reference Range Interpretation Comments WBC (test code = See_Comment H [Automated 6690-2) message] The sy stem which generated this result transmitted reference range : 4.20 - 10.70 10*3/?L. The reference range was not used to interpret this result as normal/abnormal . RBC (test code = See_Comment L [Automated 789-8) message] The sy stem which generated this result transmitted reference range : 4.26 - 5.52 10*6/?L. The reference range was not used to interpret this result as normal/abnormal . HGB (test code = 7.3 g/dL 12.2-16.4 L 718-7) HCT (test code = 22.5 % 38.4-49.3 L 4544-3) MCV (test code = 85.9 fL 81.7-95.6 787-2) MCH (test code = 27.9 pg 26.1-32.7 785-6) MCHC (test code = 32.4 g/dL 31.2-35.0 786-4) RDW-SD (test code = 41.2 fL 38.5-51.6 35878-3) RDW-CV (test code = 13.2 % 12.1-15.4 788-0) PLT (test code = See_Comment H [Automated 777-3) message] The sy stem which generated this result transmitted reference range : 150 - 328 10*3/ ?L. The reference r ivett was not used to interpret this result as normal/abnormal . MPV (test code = 8.5 fL 9.8-13.0 L 75059-4) NRBC/100 WBC (test See_Comment [Automat ed code = 7208193585) message] The system which generated this result transmitted reference range : 0.0 - 10.0 /100 WBCs. The refer ence range was not u sed to interpret th is result as normal/abnormal . NRBC x10^3 (test code <0.01 See_Comment [Auto mated = 4995753144) message] The s ystem which generated this result transmitted reference range : 10*3/?L. The reference range was not used to interpret this result as normal/abnormal . GRAN MAT (NEUT) % 66.2 % (test code = 770-8) IMM GRAN % (test code 0.40 % = 0436462223) LYMPH % (test code = 23.2 % 736-9) MONO % (test code = 8.2 % 5905-5) EOS % (test code = 1.6 % 713-8) BASO % (test code = 0.4 % 706-2) GRAN MAT x10^3(ANC) 7.61 10*3/uL 1.99-6.95 H (test code = 3320374794) IMM GRAN x10^3 (test 0.05 10*3/uL 0.00-0.06 code = 1262705231) LYMPH x10^3 (test code 2.68 10*3/uL 1.09-3.23 = 731-0) MONO x10^3 (test code 0.95 10*3/uL 0.36-1.02 = 742-7) EOS x10^3 (test code = 0.19 10*3/uL 0.06-0.53 711-2) BASO x10^3 (test code 0.05 10*3/uL 0.01-0.09 = 704-7) Lab Interpretation Abnormal (test code = 88579-0) [facility] WITH [id number] 08:51:37 Test Item Value Reference Range Interpretation Comments WBC (test code = See_Comment H [Automated 6690-2) message] The sy stem which generated this result transmitted reference range : 4.20 - 10.70 10*3/?L. The reference range was not used to interpret this result as normal/abnormal . RBC (test code = See_Comment L [Automated 789-8) message] The sy stem which generated this result transmitted reference range : 4.26 - 5.52 10*6/?L. The reference range was not used to interpret this result as normal/abnormal . HGB (test code = 7.3 g/dL 12.2-16.4 L 718-7) HCT (test code = 22.5 % 38.4-49.3 L 4544-3) MCV (test code = 85.9 fL 81.7-95.6 787-2) MCH (test code = 27.9 pg 26.1-32.7 785-6) MCHC (test code = 32.4 g/dL 31.2-35.0 786-4) RDW-SD (test code = 41.2 fL 38.5-51.6 06243-6) RDW-CV (test code = 13.2 % 12.1-15.4 788-0) PLT (test code = See_Comment H [Automated 777-3) message] The sy stem which generated this result transmitted reference range : 150 - 328 10*3/ ?L. The reference r ivett was not used to interpret this result as normal/abnormal . MPV (test code = 8.5 fL 9.8-13.0 L 36561-1) NRBC/100 WBC (test See_Comment [Automat ed code = 6899948123) message] The system which generated this result transmitted reference range : 0.0 - 10.0 /100 WBCs. The refer ence range was not u sed to interpret th is result as normal/abnormal . NRBC x10^3 (test code <0.01 See_Comment [Auto mated = 5945988389) message] The s ystem which generated this result transmitted reference range : 10*3/?L. The reference range was not used to interpret this result as normal/abnormal . GRAN MAT (NEUT) % 66.2 % (test code = 770-8) IMM GRAN % (test code 0.40 % = 3544782717) LYMPH % (test code = 23.2 % 736-9) MONO % (test code = 8.2 % 5905-5) EOS % (test code = 1.6 % 713-8) BASO % (test code = 0.4 % 706-2) GRAN MAT x10^3(ANC) 7.61 10*3/uL 1.99-6.95 H (test code = 5498589407) IMM GRAN x10^3 (test 0.05 10*3/uL 0.00-0.06 code = 2653477288) LYMPH x10^3 (test code 2.68 10*3/uL 1.09-3.23 = 731-0) MONO x10^3 (test code 0.95 10*3/uL 0.36-1.02 = 742-7) EOS x10^3 (test code = 0.19 10*3/uL 0.06-0.53 711-2) BASO x10^3 (test code 0.05 10*3/uL 0.01-0.09 = 704-7) Lab Interpretation Abnormal (test code = 04294-9) [facility] GLUCOSE (AUTOMATED)2020-11-20 00:58:01 Test Item Value Reference Range Interpretation Comments POCT GLU (test code = 5772107431) 170 mg/dL 70-110 H Lab Interpretation (test code = Abnormal 77790-9) [facility] GLUCOSE (AUTOMATED)2020-11-20 00:58:01 Test Item Value Reference Range Interpretation Comments POCT GLU (test code = 6900841077) 170 mg/dL 70-110 H Lab Interpretation (test code = Abnormal 86554-1) [facility] GLUCOSE (AUTOMATED)2020-11-19 21:19:59 Test Item Value Reference Range Interpretation Comments POCT GLU (test code = 1894858599) 271 mg/dL 70-110 H Lab Interpretation (test code = Abnormal 16458-5) [facility] GLUCOSE (AUTOMATED)2020-11-19 21:19:59 Test Item Value Reference Range Interpretation Comments POCT GLU (test code = 1847407427) 271 mg/dL 70-110 H Lab Interpretation (test code = Abnormal 62042-2) [facility] GLUCOSE (AUTOMATED)2020-11-19 17:35:10 Test Item Value Reference Range Interpretation Comments POCT GLU (test code = 0721307005) 178 mg/dL 70-110 H Lab Interpretation (test code = Abnormal 84926-0) [facility] GLUCOSE (AUTOMATED)2020-11-19 17:35:10 Test Item Value Reference Range Interpretation Comments POCT GLU (test code = 9764943798) 178 mg/dL 70-110 H Lab Interpretation (test code = Abnormal 97911-6) [facility] GLUCOSE (AUTOMATED)2020-11-19 14:21:20 Test Item Value Reference Range Interpretation Comments POCT GLU (test code = 7532206444) 112 mg/dL 70-110 H Lab Interpretation (test code = Abnormal 65614-7) [facility] GLUCOSE (AUTOMATED)2020-11-19 14:21:20 Test Item Value Reference Range Interpretation Comments POCT GLU (test code = 1652044038) 112 mg/dL 70-110 H Lab Interpretation (test code = Abnormal 69670-6) [facility] GLUCOSE (AUTOMATED)2020-11-19 13:36:33 Test Item Value Reference Range Interpretation Comments POCT GLU (test code = 7119119618) 122 mg/dL 70-110 H Lab Interpretation (test code = Abnormal 61205-5) [facility] GLUCOSE (AUTOMATED)2020-11-19 13:36:33 Test Item Value Reference Range Interpretation Comments POCT GLU (test code = 3438059215) 100 mg/dL 70-110 Lab Interpretation (test code = Normal 49462-2) [facility] GLUCOSE (AUTOMATED)2020-11-19 13:36:33 Test Item Value Reference Range Interpretation Comments POCT GLU (test code = 5621604733) 122 mg/dL 70-110 H Lab Interpretation (test code = Abnormal 72053-1) [facility] GLUCOSE (AUTOMATED)2020-11-19 13:36:33 Test Item Value Reference Range Interpretation Comments POCT GLU (test code = 6712712800) 100 mg/dL 70-110 Lab Interpretation (test code = Normal 36420-5) [facility] METABOLIC PANEL (NA, K, CL, CO2, GLUCOSE, BUN, CREATININE, CA)2020-11-19 11:53:07 Test Item Value Reference Range Interpretation Comments NA (test code = 136 mmol/L 135-145 9629106344) K (test code = 4.2 mmol/L 3.5-5.0 8820104858) CL (test code = 102 mmol/L 98-108 7618651407) CO2 TOTAL (test code 26 mmol/L 23-31 = 3076941060) AGAP (test code = 2-16 4754381740) BUN (test code = 14 mg/dL 7-23 8200062229) GLUCOSE (test code = 101 mg/dL 70-110 3406602863) CREATININE (test code 0.68 mg/dL 0.60-1.25 = 3557960601) CALCIUM (test code = 8.7 mg/dL 8.6-10.6 9009529203) eGFR (test code = mL/min/1.73m2 2195615351) PATTI (test code = PATTI) Association of Glomerular Filtration Rate (GFR) and Staging of Kidney Disease* + + +- +| GFR (mL/min/1.73 m2) ?| With Kidney Damage ?| ?Without Kidney Damage+ ------+ ----+ ------+| ?>90 ?| ?Stage one ?| ? Normal ?+ -+ + -+| ?60-89 ?| ?Stage two ?| ? Decreased GFR ? + + +- +| ?30-59 ?| ?Stage three ?| ? Stage three ? + + +- +| ?15-29 ?| ?Stage four ? | ? Stage four ?+ -+ + -+| ?<15 (or dialysis) ? ?| ?Stage five ? | ? Stage five ?+ -+ + -+ *Each stage assumes the associated GFR level has been in effect for at least three months. ?Stages 1 to 5, with or without kidney disease, indicate chronic kidney disease. Notes: Determination of stages one and two (with eGFR >59mL/min/1.73 m2) requires estimation of kidney damage for at least three months as defined by structural or functional abnormalities of the kidney, manifested by either:Pathological abnormalities or Markers of kidney damage (including abnormalities in the composition of the blood or urine or abnormalities in imaging tests). [facility] Test Item Value Reference Range Interpretation Comments MAGNESIUM (test code = 8761537775) 2.2 mg/dL 1.7-2.4 Lab Interpretation (test code = Normal 48682-7) [facility] 11:53:07 Test Item Value Reference Range Interpretation Comments PHOSPHORUS (test code = 1726290238) 4.6 mg/dL 2.5-5.0 Lab Interpretation (test code = Normal 41213-0) [facility] (NA, K, CL, CO2, GLUCOSE, BUN, CREATININE, CA)2020-11-19 11:53:07 Test Item Value Reference Range Interpretation Comments NA (test code = 136 mmol/L 135-145 7392661658) K (test code = 4.2 mmol/L 3.5-5.0 9961538634) CL (test code = 102 mmol/L 98-108 0933594641) CO2 TOTAL (test code 26 mmol/L 23-31 = 2721392055) AGAP (test code = 2-16 8832993245) BUN (test code = 14 mg/dL 7-23 3815923325) GLUCOSE (test code = 101 mg/dL 70-110 1951145732) CREATININE (test code 0.68 mg/dL 0.60-1.25 = 0777131534) CALCIUM (test code = 8.7 mg/dL 8.6-10.6 4007839730) eGFR (test code = mL/min/1.73m2 8889385664) PATTI (test code = PATTI) Association of Glomerular Filtration Rate (GFR) and Staging of Kidney Disease* + + +- +| GFR (mL/min/1.73 m2) ?| With Kidney Damage ?| ?Without Kidney Damage+ ------+ ----+ ------+| ?>90 ?| ?Stage one ?| ? Normal ?+ -+ + -+| ?60-89 ?| ?Stage two ?| ? Decreased GFR ? + + +- +| ?30-59 ?| ?Stage three ?| ? Stage three ? + + +- +| ?15-29 ?| ?Stage four ? | ? Stage four ?+ -+ + -+| ?<15 (or dialysis) ? ?| ?Stage five ? | ? Stage five ?+ -+ + -+ *Each stage assumes the associated GFR level has been in effect for at least three months. ?Stages 1 to 5, with or without kidney disease, indicate chronic kidney disease. Notes: Determination of stages one and two (with eGFR >59mL/min/1.73 m2) requires estimation of kidney damage for at least three months as defined by structural or functional abnormalities of the kidney, manifested by either:Pathological abnormalities or Markers of kidney damage (including abnormalities in the composition of the blood or urine or abnormalities in imaging tests). [facility] Test Item Value Reference Range Interpretation Comments MAGNESIUM (test code = 7730557414) 2.2 mg/dL 1.7-2.4 Lab Interpretation (test code = Normal 10230-3) [facility] 11:53:07 Test Item Value Reference Range Interpretation Comments PHOSPHORUS (test code = 5819517326) 4.6 mg/dL 2.5-5.0 Lab Interpretation (test code = Normal 49688-7) [facility] [id number] 11:03:18 Test Item Value Reference Range Interpretation Comments WBC (test code = See_Comment H [Automated 6690-2) message] The sy stem which generated this result transmitted reference range : 4.20 - 10.70 10*3/?L. The reference range was not used to interpret this result as normal/abnormal . RBC (test code = See_Comment L [Automated 789-8) message] The sy stem which generated this result transmitted reference range : 4.26 - 5.52 10*6/?L. The reference range was not used to interpret this result as normal/abnormal . HGB (test code = 8.6 g/dL 12.2-16.4 L 718-7) HCT (test code = 25.9 % 38.4-49.3 L 4544-3) MCV (test code = 86.0 fL 81.7-95.6 787-2) MCH (test code = 28.6 pg 26.1-32.7 785-6) MCHC (test code = 33.2 g/dL 31.2-35.0 786-4) RDW-SD (test code = 41.6 fL 38.5-51.6 93190-7) RDW-CV (test code = 13.4 % 12.1-15.4 788-0) PLT (test code = See_Comment H [Automated 777-3) message] The sy stem which generated this result transmitted reference range : 150 - 328 10*3/ ?L. The reference r ivett was not used to interpret this result as normal/abnormal . MPV (test code = 8.3 fL 9.8-13.0 L 01590-9) NRBC/100 WBC (test See_Comment [Automat ed code = 6206175014) message] The system which generated this result transmitted reference range : 0.0 - 10.0 /100 WBCs. The refer ence range was not u sed to interpret th is result as normal/abnormal . NRBC x10^3 (test code <0.01 See_Comment [Auto mated = 7748907306) message] The s ystem which generated this result transmitted reference range : 10*3/?L. The reference range was not used to interpret this result as normal/abnormal . GRAN MAT (NEUT) % 68.9 % (test code = 770-8) IMM GRAN % (test code 0.30 % = 4898212905) LYMPH % (test code = 21.1 % 736-9) MONO % (test code = 8.4 % 5905-5) EOS % (test code = 0.8 % 713-8) BASO % (test code = 0.5 % 706-2) GRAN MAT x10^3(ANC) 9.32 10*3/uL 1.99-6.95 H (test code = 7991578668) IMM GRAN x10^3 (test 0.04 10*3/uL 0.00-0.06 code = 3925465951) LYMPH x10^3 (test code 2.85 10*3/uL 1.09-3.23 = 731-0) MONO x10^3 (test code 1.14 10*3/uL 0.36-1.02 H = 742-7) EOS x10^3 (test code = 0.11 10*3/uL 0.06-0.53 711-2) BASO x10^3 (test code 0.07 10*3/uL 0.01-0.09 = 704-7) Lab Interpretation Abnormal (test code = 95411-8) [facility] WITH [id number] 11:03:18 Test Item Value Reference Range Interpretation Comments WBC (test code = See_Comment H [Automated 6690-2) message] The sy stem which generated this result transmitted reference range : 4.20 - 10.70 10*3/?L. The reference range was not used to interpret this result as normal/abnormal . RBC (test code = See_Comment L [Automated 789-8) message] The sy stem which generated this result transmitted reference range : 4.26 - 5.52 10*6/?L. The reference range was not used to interpret this result as normal/abnormal . HGB (test code = 8.6 g/dL 12.2-16.4 L 718-7) HCT (test code = 25.9 % 38.4-49.3 L 4544-3) MCV (test code = 86.0 fL 81.7-95.6 787-2) MCH (test code = 28.6 pg 26.1-32.7 785-6) MCHC (test code = 33.2 g/dL 31.2-35.0 786-4) RDW-SD (test code = 41.6 fL 38.5-51.6 25384-5) RDW-CV (test code = 13.4 % 12.1-15.4 788-0) PLT (test code = See_Comment H [Automated 777-3) message] The sy stem which generated this result transmitted reference range : 150 - 328 10*3/ ?L. The reference r ivett was not used to interpret this result as normal/abnormal . MPV (test code = 8.3 fL 9.8-13.0 L 19932-0) NRBC/100 WBC (test See_Comment [Automat ed code = 9519680024) message] The system which generated this result transmitted reference range : 0.0 - 10.0 /100 WBCs. The refer ence range was not u sed to interpret th is result as normal/abnormal . NRBC x10^3 (test code <0.01 See_Comment [Auto mated = 8035062475) message] The s ystem which generated this result transmitted reference range : 10*3/?L. The reference range was not used to interpret this result as normal/abnormal . GRAN MAT (NEUT) % 68.9 % (test code = 770-8) IMM GRAN % (test code 0.30 % = 8913043379) LYMPH % (test code = 21.1 % 736-9) MONO % (test code = 8.4 % 5905-5) EOS % (test code = 0.8 % 713-8) BASO % (test code = 0.5 % 706-2) GRAN MAT x10^3(ANC) 9.32 10*3/uL 1.99-6.95 H (test code = 3278884280) IMM GRAN x10^3 (test 0.04 10*3/uL 0.00-0.06 code = 4370846505) LYMPH x10^3 (test code 2.85 10*3/uL 1.09-3.23 = 731-0) MONO x10^3 (test code 1.14 10*3/uL 0.36-1.02 H = 742-7) EOS x10^3 (test code = 0.11 10*3/uL 0.06-0.53 711-2) BASO x10^3 (test code 0.07 10*3/uL 0.01-0.09 = 704-7) Lab Interpretation Abnormal (test code = 13181-4) [facility] GLUCOSE (AUTOMATED)2020-11-19 05:29:05 Test Item Value Reference Range Interpretation Comments POCT GLU (test code = 8465019483) 122 mg/dL 70-110 H Lab Interpretation (test code = Abnormal 09514-7) [facility] GLUCOSE (AUTOMATED)2020-11-19 05:29:05 Test Item Value Reference Range Interpretation Comments POCT GLU (test code = 2141523845) 122 mg/dL 70-110 H Lab Interpretation (test code = Abnormal 75045-5) [facility] GLUCOSE (AUTOMATED)2020-11-19 01:01:41 Test Item Value Reference Range Interpretation Comments POCT GLU (test code = 7368323124) 211 mg/dL 70-110 H Lab Interpretation (test code = Abnormal 73086-3) [facility] GLUCOSE (AUTOMATED)2020-11-19 01:01:41 Test Item Value Reference Range Interpretation Comments POCT GLU (test code = 8570922104) 211 mg/dL 70-110 H Lab Interpretation (test code = Abnormal 94415-4) [facility] GLUCOSE (AUTOMATED)2020-11-18 23:51:25 Test Item Value Reference Range Interpretation Comments POCT GLU (test code = 5252609706) 203 mg/dL 70-110 H Lab Interpretation (test code = Abnormal 07185-5) [facility] GLUCOSE (AUTOMATED)2020-11-18 23:51:25 Test Item Value Reference Range Interpretation Comments POCT GLU (test code = 0792133558) 203 mg/dL 70-110 H Lab Interpretation (test code = Abnormal 08505-9) [facility] GLUCOSE (AUTOMATED)2020-11-18 21:17:40 Test Item Value Reference Range Interpretation Comments POCT GLU (test code = 5098659896) 170 mg/dL 70-110 H Lab Interpretation (test code = Abnormal 17077-1) [facility] GLUCOSE (AUTOMATED)2020-11-18 21:17:40 Test Item Value Reference Range Interpretation Comments POCT GLU (test code = 7721452679) 170 mg/dL 70-110 H Lab Interpretation (test code = Abnormal 27214-6) [facility] GLUCOSE (AUTOMATED)2020-11-18 18:24:46 Test Item Value Reference Range Interpretation Comments POCT GLU (test code = 2739842792) 187 mg/dL 70-110 H Lab Interpretation (test code = Abnormal 18068-0) [facility] GLUCOSE (AUTOMATED)2020-11-18 18:24:46 Test Item Value Reference Range Interpretation Comments POCT GLU (test code = 8051916106) 187 mg/dL 70-110 H Lab Interpretation (test code = Abnormal 08893-9) [facility] GLUCOSE (AUTOMATED)2020-11-18 18:24:46 Test Item Value Reference Range Interpretation Comments POCT GLU (test code = 5318185305) 187 mg/dL 70-110 H Lab Interpretation (test code = Abnormal 69192-6) [facility] GLUCOSE (AUTOMATED)2020-11-18 12:36:27 Test Item Value Reference Range Interpretation Comments POCT GLU (test code = 6383608672) 174 mg/dL 70-110 H Lab Interpretation (test code = Abnormal 32178-1) [facility] GLUCOSE (AUTOMATED)2020-11-18 12:36:27 Test Item Value Reference Range Interpretation Comments POCT GLU (test code = 2136336897) 174 mg/dL 70-110 H Lab Interpretation (test code = Abnormal 48026-1) [facility] GLUCOSE (AUTOMATED)2020-11-18 12:36:27 Test Item Value Reference Range Interpretation Comments POCT GLU (test code = 8712668904) 174 mg/dL 70-110 H Lab Interpretation (test code = Abnormal 46793-0) [facility] METABOLIC PANEL (NA, K, CL, CO2, GLUCOSE, BUN, CREATININE, CA)2020-11-18 11:06:15 Test Item Value Reference Range Interpretation Comments NA (test code = 131 mmol/L 135-145 L 8854356006) K (test code = 4.5 mmol/L 3.5-5.0 3056698943) CL (test code = 99 mmol/L 98-108 3979338270) CO2 TOTAL (test code = 26 mmol/L 23-31 0099590683) AGAP (test code = 2-16 7213414450) BUN (test code = 12 mg/dL 7-23 7661949496) GLUCOSE (test code = 243 mg/dL 70-110 H 9627780873) CREATININE (test code = 0.66 mg/dL 0.60-1.25 1226926737) CALCIUM (test code = 8.7 mg/dL 8.6-10.6 4003226893) eGFR (test code = mL/min/1.73m2 5306194567) PATTI (test code = PATTI) Association of Glomerular Filtration Rate (GFR) and Staging of Kidney Disease* + --+ --+ ------+| GFR (mL/min/1.73 m2) ?| With Kidney Damage ?| ?Without Kidney Damage+ --------+ --------+ +| ?>90 ?| ?Stage one ?| ? Normal ?+ ---+ ---+ -------+| ?60-89 ?| ?Stage two ?| ? Decreased GFR ? + --+ --+ ------+| ?30-59 ?| ?Stage three ?| ? Stage three ? + --+ --+ ------+| ?15-29 ?| ?Stage four ? | ? Stage four ?+ ---+ ---+ -------+| ?<15 (or dialysis) ? ?| ?Stage five ? | ? Stage five ?+ ---+ ---+ -------+ *Each stage assumes the associated GFR level has been in effect for at least three months. ?Stages 1 to 5, with or without kidney disease, indicate chronic kidney disease. Notes: Determination of stages one and two (with eGFR >59mL/min/1.73 m2) requires estimation of kidney damage for at least three months as defined by structural or functional abnormalities of the kidney, manifested by either:Pathological abnormalities or Markers of kidney damage (including abnormalities in the composition of the blood or urine or abnormalities in imaging tests). Lab Interpretation Abnormal (test code = 43894-5) [facility]06:15 Test Item Value Reference Range Interpretation Comments MAGNESIUM (test code = 5997899113) 1.9 mg/dL 1.7-2.4 Lab Interpretation (test code = Normal 80358-5) [facility] 11:06:15 Test Item Value Reference Range Interpretation Comments PHOSPHORUS (test code = 0279644638) 3.9 mg/dL 2.5-5.0 Lab Interpretation (test code = Normal 95499-9) [facility] (NA, K, CL, CO2, GLUCOSE, BUN, CREATININE, CA)2020-11-18 11:06:15 Test Item Value Reference Range Interpretation Comments NA (test code = 131 mmol/L 135-145 L 1208229418) K (test code = 4.5 mmol/L 3.5-5.0 9711281123) CL (test code = 99 mmol/L 98-108 4124694855) CO2 TOTAL (test code = 26 mmol/L 23-31 1014659489) AGAP (test code = 2-16 0687308231) BUN (test code = 12 mg/dL 7-23 5694657138) GLUCOSE (test code = 243 mg/dL 70-110 H 7400863357) CREATININE (test code = 0.66 mg/dL 0.60-1.25 7769344478) CALCIUM (test code = 8.7 mg/dL 8.6-10.6 0213923295) eGFR (test code = mL/min/1.73m2 3722548819) PATTI (test code = PATTI) Association of Glomerular Filtration Rate (GFR) and Staging of Kidney Disease* + --+ --+ ------+| GFR (mL/min/1.73 m2) ?| With Kidney Damage ?| ?Without Kidney Damage+ --------+ --------+ +| ?>90 ?| ?Stage one ?| ? Normal ?+ ---+ ---+ -------+| ?60-89 ?| ?Stage two ?| ? Decreased GFR ? + --+ --+ ------+| ?30-59 ?| ?Stage three ?| ? Stage three ? + --+ --+ ------+| ?15-29 ?| ?Stage four ? | ? Stage four ?+ ---+ ---+ -------+| ?<15 (or dialysis) ? ?| ?Stage five ? | ? Stage five ?+ ---+ ---+ -------+ *Each stage assumes the associated GFR level has been in effect for at least three months. ?Stages 1 to 5, with or without kidney disease, indicate chronic kidney disease. Notes: Determination of stages one and two (with eGFR >59mL/min/1.73 m2) requires estimation of kidney damage for at least three months as defined by structural or functional abnormalities of the kidney, manifested by either:Pathological abnormalities or Markers of kidney damage (including abnormalities in the composition of the blood or urine or abnormalities in imaging tests). Lab Interpretation Abnormal (test code = 95286-1) [facility] 11:06:15 Test Item Value Reference Range Interpretation Comments MAGNESIUM (test code = 9881421981) 1.9 mg/dL 1.7-2.4 Lab Interpretation (test code = Normal 51540-7) [facility] 11:06:15 Test Item Value Reference Range Interpretation Comments PHOSPHORUS (test code = 5155858359) 3.9 mg/dL 2.5-5.0 Lab Interpretation (test code = Normal 39455-0) [facility] (NA, K, CL, CO2, GLUCOSE, BUN, CREATININE, CA)2020-11-18 11:06:15 Test Item Value Reference Range Interpretation Comments NA (test code = 131 mmol/L 135-145 L 9283954619) K (test code = 4.5 mmol/L 3.5-5.0 5288412614) CL (test code = 99 mmol/L 98-108 9620315566) CO2 TOTAL (test code = 26 mmol/L 23-31 9359755513) AGAP (test code = 2-16 9684084638) BUN (test code = 12 mg/dL 7-23 7406247070) GLUCOSE (test code = 243 mg/dL 70-110 H 4517140526) CREATININE (test code = 0.66 mg/dL 0.60-1.25 5474838531) CALCIUM (test code = 8.7 mg/dL 8.6-10.6 1828004113) eGFR (test code = mL/min/1.73m2 8034363045) PATTI (test code = PATTI) Association of Glomerular Filtration Rate (GFR) and Staging of Kidney Disease* + --+ --+ ------+| GFR (mL/min/1.73 m2) ?| With Kidney Damage ?| ?Without Kidney Damage+ --------+ --------+ +| ?>90 ?| ?Stage one ?| ? Normal ?+ ---+ ---+ -------+| ?60-89 ?| ?Stage two ?| ? Decreased GFR ? + --+ --+ ------+| ?30-59 ?| ?Stage three ?| ? Stage three ? + --+ --+ ------+| ?15-29 ?| ?Stage four ? | ? Stage four ?+ ---+ ---+ -------+| ?<15 (or dialysis) ? ?| ?Stage five ? | ? Stage five ?+ ---+ ---+ -------+ *Each stage assumes the associated GFR level has been in effect for at least three months. ?Stages 1 to 5, with or without kidney disease, indicate chronic kidney disease. Notes: Determination of stages one and two (with eGFR >59mL/min/1.73 m2) requires estimation of kidney damage for at least three months as defined by structural or functional abnormalities of the kidney, manifested by either:Pathological abnormalities or Markers of kidney damage (including abnormalities in the composition of the blood or urine or abnormalities in imaging tests). Lab Interpretation Abnormal (test code = 33224-5) [facility] Test Item Value Reference Range Interpretation Comments MAGNESIUM (test code = 6688593559) 1.9 mg/dL 1.7-2.4 Lab Interpretation (test code = Normal 23415-5) [facility] 11:06:15 Test Item Value Reference Range Interpretation Comments PHOSPHORUS (test code = 2790881337) 3.9 mg/dL 2.5-5.0 Lab Interpretation (test code = Normal 96398-7) [facility] [id number] 10:14:31 Test Item Value Reference Range Interpretation Comments WBC (test code = See_Comment H [Automated 6690-2) message] The system which generated this result transmit marcelina reference range : 4.20 - 10.70 10*3/?L. The reference range was not used to interpret this result as normal/abnormal . RBC (test code = See_Comment L [Automated 789-8) message] The system which generated this result transmit marcelina reference range : 4.26 - 5.52 10*6/?L. The reference range was not used to interpret this result as normal/abnormal . HGB (test code = 8.9 g/dL 12.2-16.4 L 718-7) HCT (test code = 26.7 % 38.4-49.3 L 4544-3) MCV (test code = 85.6 fL 81.7-95.6 787-2) MCH (test code = 28.5 pg 26.1-32.7 785-6) MCHC (test code = 33.3 g/dL 31.2-35.0 786-4) RDW-SD (test code = 40.5 fL 38.5-51.6 28618-7) RDW-CV (test code = 13.1 % 12.1-15.4 788-0) PLT (test code = See_Comment H [Automated 777-3) message] The system which generated this result transmit marcelina reference range : 150 - 328 10*3/ ?L. The reference range was not u sed to interpret th is result as normal/abnormal . MPV (test code = 8.4 fL 9.8-13.0 L 27386-1) NRBC/100 WBC (test See_Comment [Automat ed code = 5646506685) message] The system which generated this result transmit marcelina reference range : 0.0 - 10.0 /100 WBCs. The reference range was not used to interpret this result as normal/abnormal . NRBC x10^3 (test code <0.01 See_Comment [Auto mated = 0844136824) message] The system which generated this result transmit marcelina reference range : 10*3/?L. The reference range was not used to interpret this result as normal/abnormal . GRAN MAT (NEUT) % 78.0 % (test code = 770-8) IMM GRAN % (test code 0.30 % = 9316641132) LYMPH % (test code = 13.8 % 736-9) MONO % (test code = 7.3 % 5905-5) EOS % (test code = 0.2 % 713-8) BASO % (test code = 0.4 % 706-2) GRAN MAT x10^3(ANC) 10.59 10*3/uL 1.99-6.95 H (test code = 8410923251) IMM GRAN x10^3 (test 0.04 10*3/uL 0.00-0.06 code = 0762591379) LYMPH x10^3 (test code 1.87 10*3/uL 1.09-3.23 = 731-0) MONO x10^3 (test code 0.99 10*3/uL 0.36-1.02 = 742-7) EOS x10^3 (test code = 0.03 10*3/uL 0.06-0.53 L 711-2) BASO x10^3 (test code 0.05 10*3/uL 0.01-0.09 = 704-7) Lab Interpretation Abnormal (test code = 20440-2) [facility] WITH [id number] 10:14:31 Test Item Value Reference Range Interpretation Comments WBC (test code = See_Comment H [Automated 6690-2) message] The system which generated this result transmit marcelina reference range : 4.20 - 10.70 10*3/?L. The reference range was not used to interpret this result as normal/abnormal . RBC (test code = See_Comment L [Automated 449-8) message] The system which generated this result transmit marcelina reference range : 4.26 - 5.52 10*6/?L. The reference range was not used to interpret this result as normal/abnormal . HGB (test code = 8.9 g/dL 12.2-16.4 L 718-7) HCT (test code = 26.7 % 38.4-49.3 L 4544-3) MCV (test code = 85.6 fL 81.7-95.6 787-2) MCH (test code = 28.5 pg 26.1-32.7 785-6) MCHC (test code = 33.3 g/dL 31.2-35.0 786-4) RDW-SD (test code = 40.5 fL 38.5-51.6 47023-6) RDW-CV (test code = 13.1 % 12.1-15.4 788-0) PLT (test code = See_Comment H [Automated 777-3) message] The system which generated this result transmit marcelina reference range : 150 - 328 10*3/ ?L. The reference range was not u sed to interpret th is result as normal/abnormal . MPV (test code = 8.4 fL 9.8-13.0 L 39901-6) NRBC/100 WBC (test See_Comment [Automat ed code = 0944775007) message] The system which generated this result transmit marcelina reference range : 0.0 - 10.0 /100 WBCs. The reference range was not used to interpret this result as normal/abnormal . NRBC x10^3 (test code <0.01 See_Comment [Auto mated = 7664111026) message] The system which generated this result transmit marcelina reference range : 10*3/?L. The reference range was not used to interpret this result as normal/abnormal . GRAN MAT (NEUT) % 78.0 % (test code = 770-8) IMM GRAN % (test code 0.30 % = 7123878606) LYMPH % (test code = 13.8 % 736-9) MONO % (test code = 7.3 % 5905-5) EOS % (test code = 0.2 % 713-8) BASO % (test code = 0.4 % 706-2) GRAN MAT x10^3(ANC) 10.59 10*3/uL 1.99-6.95 H (test code = 4774703844) IMM GRAN x10^3 (test 0.04 10*3/uL 0.00-0.06 code = 2208989465) LYMPH x10^3 (test code 1.87 10*3/uL 1.09-3.23 = 731-0) MONO x10^3 (test code 0.99 10*3/uL 0.36-1.02 = 742-7) EOS x10^3 (test code = 0.03 10*3/uL 0.06-0.53 L 711-2) BASO x10^3 (test code 0.05 10*3/uL 0.01-0.09 = 704-7) Lab Interpretation Abnormal (test code = 26610-2) [facility] WITH [id number] 10:14:31 Test Item Value Reference Range Interpretation Comments WBC (test code = See_Comment H [Automated 6690-2) message] The system which generated this result transmit marcelina reference range : 4.20 - 10.70 10*3/?L. The reference range was not used to interpret this result as normal/abnormal . RBC (test code = See_Comment L [Automated 789-8) message] The system which generated this result transmit marcelina reference range : 4.26 - 5.52 10*6/?L. The reference range was not used to interpret this result as normal/abnormal . HGB (test code = 8.9 g/dL 12.2-16.4 L 718-7) HCT (test code = 26.7 % 38.4-49.3 L 4544-3) MCV (test code = 85.6 fL 81.7-95.6 787-2) MCH (test code = 28.5 pg 26.1-32.7 785-6) MCHC (test code = 33.3 g/dL 31.2-35.0 786-4) RDW-SD (test code = 40.5 fL 38.5-51.6 95669-3) RDW-CV (test code = 13.1 % 12.1-15.4 788-0) PLT (test code = See_Comment H [Automated 777-3) message] The system which generated this result transmit marcelina reference range : 150 - 328 10*3/ ?L. The reference range was not u sed to interpret th is result as normal/abnormal . MPV (test code = 8.4 fL 9.8-13.0 L 87336-4) NRBC/100 WBC (test See_Comment [Automat ed code = 1262001919) message] The system which generated this result transmit marcelina reference range : 0.0 - 10.0 /100 WBCs. The reference range was not used to interpret this result as normal/abnormal . NRBC x10^3 (test code <0.01 See_Comment [Auto mated = 6977736868) message] The system which generated this result transmit marcelina reference range : 10*3/?L. The reference range was not used to interpret this result as normal/abnormal . GRAN MAT (NEUT) % 78.0 % (test code = 770-8) IMM GRAN % (test code 0.30 % = 3128762891) LYMPH % (test code = 13.8 % 736-9) MONO % (test code = 7.3 % 5905-5) EOS % (test code = 0.2 % 713-8) BASO % (test code = 0.4 % 706-2) GRAN MAT x10^3(ANC) 10.59 10*3/uL 1.99-6.95 H (test code = 6527755223) IMM GRAN x10^3 (test 0.04 10*3/uL 0.00-0.06 code = 2163457595) LYMPH x10^3 (test code 1.87 10*3/uL 1.09-3.23 = 731-0) MONO x10^3 (test code 0.99 10*3/uL 0.36-1.02 = 742-7) EOS x10^3 (test code = 0.03 10*3/uL 0.06-0.53 L 711-2) BASO x10^3 (test code 0.05 10*3/uL 0.01-0.09 = 704-7) Lab Interpretation Abnormal (test code = 39034-6) [facility] GLUCOSE (AUTOMATED)2020-11-18 09:26:02 Test Item Value Reference Range Interpretation Comments POCT GLU (test code = 2362679324) 271 mg/dL 70-110 H Lab Interpretation (test code = Abnormal 18922-2) [facility] GLUCOSE (AUTOMATED)2020-11-18 09:26:02 Test Item Value Reference Range Interpretation Comments POCT GLU (test code = 7478665883) 271 mg/dL 70-110 H Lab Interpretation (test code = Abnormal 90869-6) [facility] GLUCOSE (AUTOMATED)2020-11-18 09:26:02 Test Item Value Reference Range Interpretation Comments POCT GLU (test code = 3756053799) 271 mg/dL 70-110 H Lab Interpretation (test code = Abnormal 74086-5) [facility] GLUCOSE (AUTOMATED)2020-11-18 05:02:24 Test Item Value Reference Range Interpretation Comments POCT GLU (test code = 5025190263) 188 mg/dL 70-110 H Lab Interpretation (test code = Abnormal 69742-4) [facility] GLUCOSE (AUTOMATED)2020-11-18 05:02:24 Test Item Value Reference Range Interpretation Comments POCT GLU (test code = 6224371142) 188 mg/dL 70-110 H Lab Interpretation (test code = Abnormal 56461-3) [facility] GLUCOSE (AUTOMATED)2020-11-18 05:02:24 Test Item Value Reference Range Interpretation Comments POCT GLU (test code = 3895498013) 188 mg/dL 70-110 H Lab Interpretation (test code = Abnormal 05145-9) [facility] GLUCOSE (AUTOMATED)2020-11-18 01:03:53 Test Item Value Reference Range Interpretation Comments POCT GLU (test code = 3781562607) 209 mg/dL 70-110 H Lab Interpretation (test code = Abnormal 81549-2) [facility] GLUCOSE (AUTOMATED)2020-11-18 01:03:53 Test Item Value Reference Range Interpretation Comments POCT GLU (test code = 3605204666) 209 mg/dL 70-110 H Lab Interpretation (test code = Abnormal 69095-6) [facility] GLUCOSE (AUTOMATED)2020-11-18 01:03:53 Test Item Value Reference Range Interpretation Comments POCT GLU (test code = 3806116298) 209 mg/dL 70-110 H Lab Interpretation (test code = Abnormal 84691-2) [facility] METABOLIC PANEL (NA, K, CL, CO2, GLUCOSE, BUN, CREATININE, CA)2020-11-17 23:32:46 Test Item Value Reference Range Interpretation Comments NA (test code = 133 mmol/L 135-145 L 1160735894) K (test code = 4.0 mmol/L 3.5-5.0 8679776434) CL (test code = 99 mmol/L 98-108 8143242404) CO2 TOTAL (test code = 27 mmol/L 23-31 3737060569) AGAP (test code = 2-16 9402936787) BUN (test code = 8 mg/dL 7-23 2427894001) GLUCOSE (test code = 220 mg/dL 70-110 H 5331763811) CREATININE (test code = 0.46 mg/dL 0.60-1.25 L 6790882650) CALCIUM (test code = 8.9 mg/dL 8.6-10.6 5222836339) eGFR (test code = mL/min/1.73m2 3656206883) PATTI (test code = PATTI) Association of Glomerular Filtration Rate (GFR) and Staging of Kidney Disease* + --+ --+ ------+| GFR (mL/min/1.73 m2) ?| With Kidney Damage ?| ?Without Kidney Damage+ --------+ --------+ +| ?>90 ?| ?Stage one ?| ? Normal ?+ ---+ ---+ -------+| ?60-89 ?| ?Stage two ?| ? Decreased GFR ? + --+ --+ ------+| ?30-59 ?| ?Stage three ?| ? Stage three ? + --+ --+ ------+| ?15-29 ?| ?Stage four ? | ? Stage four ?+ ---+ ---+ -------+| ?<15 (or dialysis) ? ?| ?Stage five ? | ? Stage five ?+ ---+ ---+ -------+ *Each stage assumes the associated GFR level has been in effect for at least three months. ?Stages 1 to 5, with or without kidney disease, indicate chronic kidney disease. Notes: Determination of stages one and two (with eGFR >59mL/min/1.73 m2) requires estimation of kidney damage for at least three months as defined by structural or functional abnormalities of the kidney, manifested by either:Pathological abnormalities or Markers of kidney damage (including abnormalities in the composition of the blood or urine or abnormalities in imaging tests). Lab Interpretation Abnormal (test code = 88368-7) [facility] Test Item Value Reference Range Interpretation Comments MAGNESIUM (test code = 9977056472) 2.0 mg/dL 1.7-2.4 Lab Interpretation (test code = Normal 91809-4) [facility]:32:46 Test Item Value Reference Range Interpretation Comments PHOSPHORUS (test code = 5403053482) 4.0 mg/dL 2.5-5.0 Lab Interpretation (test code = Normal 61657-3) [facility] (NA, K, CL, CO2, GLUCOSE, BUN, CREATININE, CA)2020-11-17 23:32:46 Test Item Value Reference Range Interpretation Comments NA (test code = 133 mmol/L 135-145 L 2149172498) K (test code = 4.0 mmol/L 3.5-5.0 4164008661) CL (test code = 99 mmol/L 98-108 0994364208) CO2 TOTAL (test code = 27 mmol/L 23-31 9419730378) AGAP (test code = 2-16 4014081511) BUN (test code = 8 mg/dL 7-23 7480982179) GLUCOSE (test code = 220 mg/dL 70-110 H 2461214215) CREATININE (test code = 0.46 mg/dL 0.60-1.25 L 9077194310) CALCIUM (test code = 8.9 mg/dL 8.6-10.6 2429685194) eGFR (test code = mL/min/1.73m2 5395940616) PATTI (test code = PATTI) Association of Glomerular Filtration Rate (GFR) and Staging of Kidney Disease* + --+ --+ ------+| GFR (mL/min/1.73 m2) ?| With Kidney Damage ?| ?Without Kidney Damage+ --------+ --------+ +| ?>90 ?| ?Stage one ?| ? Normal ?+ ---+ ---+ -------+| ?60-89 ?| ?Stage two ?| ? Decreased GFR ? + --+ --+ ------+| ?30-59 ?| ?Stage three ?| ? Stage three ? + --+ --+ ------+| ?15-29 ?| ?Stage four ? | ? Stage four ?+ ---+ ---+ -------+| ?<15 (or dialysis) ? ?| ?Stage five ? | ? Stage five ?+ ---+ ---+ -------+ *Each stage assumes the associated GFR level has been in effect for at least three months. ?Stages 1 to 5, with or without kidney disease, indicate chronic kidney disease. Notes: Determination of stages one and two (with eGFR >59mL/min/1.73 m2) requires estimation of kidney damage for at least three months as defined by structural or functional abnormalities of the kidney, manifested by either:Pathological abnormalities or Markers of kidney damage (including abnormalities in the composition of the blood or urine or abnormalities in imaging tests). Lab Interpretation Abnormal (test code = 34864-4) [facility]46 Test Item Value Reference Range Interpretation Comments MAGNESIUM (test code = 5840516244) 2.0 mg/dL 1.7-2.4 Lab Interpretation (test code = Normal 72941-4) [facility] 23:32:46 Test Item Value Reference Range Interpretation Comments PHOSPHORUS (test code = 6037030532) 4.0 mg/dL 2.5-5.0 Lab Interpretation (test code = Normal 00371-7) [facility] (NA, K, CL, CO2, GLUCOSE, BUN, CREATININE, CA)2020-11-17 23:32:46 Test Item Value Reference Range Interpretation Comments NA (test code = 133 mmol/L 135-145 L 3996643079) K (test code = 4.0 mmol/L 3.5-5.0 4930504848) CL (test code = 99 mmol/L 98-108 1121908035) CO2 TOTAL (test code = 27 mmol/L 23-31 3827757827) AGAP (test code = 2-16 4030019366) BUN (test code = 8 mg/dL 7-23 8473625105) GLUCOSE (test code = 220 mg/dL 70-110 H 4768424677) CREATININE (test code = 0.46 mg/dL 0.60-1.25 L 4299497210) CALCIUM (test code = 8.9 mg/dL 8.6-10.6 6840861085) eGFR (test code = mL/min/1.73m2 0134021951) PATTI (test code = PATTI) Association of Glomerular Filtration Rate (GFR) and Staging of Kidney Disease* + --+ --+ ------+| GFR (mL/min/1.73 m2) ?| With Kidney Damage ?| ?Without Kidney Damage+ --------+ --------+ +| ?>90 ?| ?Stage one ?| ? Normal ?+ ---+ ---+ -------+| ?60-89 ?| ?Stage two ?| ? Decreased GFR ? + --+ --+ ------+| ?30-59 ?| ?Stage three ?| ? Stage three ? + --+ --+ ------+| ?15-29 ?| ?Stage four ? | ? Stage four ?+ ---+ ---+ -------+| ?<15 (or dialysis) ? ?| ?Stage five ? | ? Stage five ?+ ---+ ---+ -------+ *Each stage assumes the associated GFR level has been in effect for at least three months. ?Stages 1 to 5, with or without kidney disease, indicate chronic kidney disease. Notes: Determination of stages one and two (with eGFR >59mL/min/1.73 m2) requires estimation of kidney damage for at least three months as defined by structural or functional abnormalities of the kidney, manifested by either:Pathological abnormalities or Markers of kidney damage (including abnormalities in the composition of the blood or urine or abnormalities in imaging tests). Lab Interpretation Abnormal (test code = 43355-0) [facility]:32:46 Test Item Value Reference Range Interpretation Comments MAGNESIUM (test code = 3266863851) 2.0 mg/dL 1.7-2.4 Lab Interpretation (test code = Normal 53913-6) [facility]:32:46 Test Item Value Reference Range Interpretation Comments PHOSPHORUS (test code = 3696897531) 4.0 mg/dL 2.5-5.0 Lab Interpretation (test code = Normal 06872-6) [facility] WITH [id number] 23:01:21 Test Item Value Reference Range Interpretation Comments WBC (test code = See_Comment [Automated 6690-2) message] The sy stem which generated this result transmitted reference range : 4.20 - 10.70 10*3/?L. The reference range was not used to interpret this result as normal/abnormal . RBC (test code = See_Comment L [Automated 789-8) message] The sy stem which generated this result transmitted reference range : 4.26 - 5.52 10*6/?L. The reference range was not used to interpret this result as normal/abnormal . HGB (test code = 9.2 g/dL 12.2-16.4 L 718-7) HCT (test code = 28.0 % 38.4-49.3 L 4544-3) MCV (test code = 88.3 fL 81.7-95.6 787-2) MCH (test code = 29.0 pg 26.1-32.7 785-6) MCHC (test code = 32.9 g/dL 31.2-35.0 786-4) RDW-SD (test code = 42.3 fL 38.5-51.6 18380-4) RDW-CV (test code = 13.1 % 12.1-15.4 788-0) PLT (test code = See_Comment H [Automated 777-3) message] The sy stem which generated this result transmitted reference range : 150 - 328 10*3/ ?L. The reference r ivett was not used to interpret this result as normal/abnormal . MPV (test code = 8.6 fL 9.8-13.0 L 14326-2) NRBC/100 WBC (test See_Comment [Automat ed code = 2716373805) message] The system which generated this result transmitted reference range : 0.0 - 10.0 /100 WBCs. The refer ence range was not u sed to interpret th is result as normal/abnormal . NRBC x10^3 (test code <0.01 See_Comment [Auto mated = 5849205679) message] The s ystem which generated this result transmitted reference range : 10*3/?L. The reference range was not used to interpret this result as normal/abnormal . GRAN MAT (NEUT) % 66.3 % (test code = 770-8) IMM GRAN % (test code 0.70 % = 8148981232) LYMPH % (test code = 22.9 % 736-9) MONO % (test code = 7.2 % 5905-5) EOS % (test code = 2.2 % 713-8) BASO % (test code = 0.7 % 706-2) GRAN MAT x10^3(ANC) 5.97 10*3/uL 1.99-6.95 (test code = 1729251672) IMM GRAN x10^3 (test 0.06 10*3/uL 0.00-0.06 code = 7067247351) LYMPH x10^3 (test code 2.06 10*3/uL 1.09-3.23 = 731-0) MONO x10^3 (test code 0.65 10*3/uL 0.36-1.02 = 742-7) EOS x10^3 (test code = 0.20 10*3/uL 0.06-0.53 711-2) BASO x10^3 (test code 0.06 10*3/uL 0.01-0.09 = 704-7) Lab Interpretation Abnormal (test code = 77618-2) [facility] WITH [id number] 23:01:21 Test Item Value Reference Range Interpretation Comments WBC (test code = See_Comment [Automated 2890-2) message] The sy stem which generated this result transmitted reference range : 4.20 - 10.70 10*3/?L. The reference range was not used to interpret this result as normal/abnormal . RBC (test code = See_Comment L [Automated 299-8) message] The sy stem which generated this result transmitted reference range : 4.26 - 5.52 10*6/?L. The reference range was not used to interpret this result as normal/abnormal . HGB (test code = 9.2 g/dL 12.2-16.4 L 718-7) HCT (test code = 28.0 % 38.4-49.3 L 4544-3) MCV (test code = 88.3 fL 81.7-95.6 787-2) MCH (test code = 29.0 pg 26.1-32.7 785-6) MCHC (test code = 32.9 g/dL 31.2-35.0 786-4) RDW-SD (test code = 42.3 fL 38.5-51.6 66385-5) RDW-CV (test code = 13.1 % 12.1-15.4 788-0) PLT (test code = See_Comment H [Automated 777-3) message] The sy stem which generated this result transmitted reference range : 150 - 328 10*3/ ?L. The reference r ivett was not used to interpret this result as normal/abnormal . MPV (test code = 8.6 fL 9.8-13.0 L 86357-2) NRBC/100 WBC (test See_Comment [Automat ed code = 7550139812) message] The system which generated this result transmitted reference range : 0.0 - 10.0 /100 WBCs. The refer ence range was not u sed to interpret th is result as normal/abnormal . NRBC x10^3 (test code <0.01 See_Comment [Auto mated = 4900284299) message] The s ystem which generated this result transmitted reference range : 10*3/?L. The reference range was not used to interpret this result as normal/abnormal . GRAN MAT (NEUT) % 66.3 % (test code = 770-8) IMM GRAN % (test code 0.70 % = 4280738978) LYMPH % (test code = 22.9 % 736-9) MONO % (test code = 7.2 % 5905-5) EOS % (test code = 2.2 % 713-8) BASO % (test code = 0.7 % 706-2) GRAN MAT x10^3(ANC) 5.97 10*3/uL 1.99-6.95 (test code = 1902786362) IMM GRAN x10^3 (test 0.06 10*3/uL 0.00-0.06 code = 2390964201) LYMPH x10^3 (test code 2.06 10*3/uL 1.09-3.23 = 731-0) MONO x10^3 (test code 0.65 10*3/uL 0.36-1.02 = 742-7) EOS x10^3 (test code = 0.20 10*3/uL 0.06-0.53 711-2) BASO x10^3 (test code 0.06 10*3/uL 0.01-0.09 = 704-7) Lab Interpretation Abnormal (test code = 59624-5) [facility] WITH [id number] 23:01:21 Test Item Value Reference Range Interpretation Comments WBC (test code = See_Comment [Automated 6690-2) message] The sy stem which generated this result transmitted reference range : 4.20 - 10.70 10*3/?L. The reference range was not used to interpret this result as normal/abnormal . RBC (test code = See_Comment L [Automated 789-8) message] The sy stem which generated this result transmitted reference range : 4.26 - 5.52 10*6/?L. The reference range was not used to interpret this result as normal/abnormal . HGB (test code = 9.2 g/dL 12.2-16.4 L 718-7) HCT (test code = 28.0 % 38.4-49.3 L 4544-3) MCV (test code = 88.3 fL 81.7-95.6 787-2) MCH (test code = 29.0 pg 26.1-32.7 785-6) MCHC (test code = 32.9 g/dL 31.2-35.0 786-4) RDW-SD (test code = 42.3 fL 38.5-51.6 36008-0) RDW-CV (test code = 13.1 % 12.1-15.4 788-0) PLT (test code = See_Comment H [Automated 777-3) message] The sy stem which generated this result transmitted reference range : 150 - 328 10*3/ ?L. The reference r ivett was not used to interpret this result as normal/abnormal . MPV (test code = 8.6 fL 9.8-13.0 L 11032-8) NRBC/100 WBC (test See_Comment [Automat ed code = 4238784065) message] The system which generated this result transmitted reference range : 0.0 - 10.0 /100 WBCs. The refer ence range was not u sed to interpret th is result as normal/abnormal . NRBC x10^3 (test code <0.01 See_Comment [Auto mated = 7082018874) message] The s ystem which generated this result transmitted reference range : 10*3/?L. The reference range was not used to interpret this result as normal/abnormal . GRAN MAT (NEUT) % 66.3 % (test code = 770-8) IMM GRAN % (test code 0.70 % = 1635725328) LYMPH % (test code = 22.9 % 736-9) MONO % (test code = 7.2 % 5905-5) EOS % (test code = 2.2 % 713-8) BASO % (test code = 0.7 % 706-2) GRAN MAT x10^3(ANC) 5.97 10*3/uL 1.99-6.95 (test code = 9471018136) IMM GRAN x10^3 (test 0.06 10*3/uL 0.00-0.06 code = 9243263797) LYMPH x10^3 (test code 2.06 10*3/uL 1.09-3.23 = 731-0) MONO x10^3 (test code 0.65 10*3/uL 0.36-1.02 = 742-7) EOS x10^3 (test code = 0.20 10*3/uL 0.06-0.53 711-2) BASO x10^3 (test code 0.06 10*3/uL 0.01-0.09 = 704-7) Lab Interpretation Abnormal (test code = 88954-3) [facility] VENOUS BLOOD [id number] 22:45:06 Test Item Value Reference Range Interpretation Comments PH (test code = 7.32-7.42 H 4025632104) PCO2 JIM (test code = See_Comment L [Auto mated message] 5385260831) The system whic h generated this result transmitted ref erence range: 41 - 51 mmHg. The reference r ivett was not used to interpret this result as normal/abnor mal. PO2 JIM (test code = See_Comment H [Autom ated message] 2170960726) The system [employer] generated this result transmitted ref erence range: 25 - 40 mmHg. The reference r ivett was not used to interpret this result as normal/abnor mal. HCO3 JIM (test code = See_Comment [Auto mated message] 4927734912) The system [employer] generated this result transmitted ref erence range: 24 - 28 mEq/L. The reference r ivett was not used to interpret this result as normal/abnor mal. AC VBE(BEAKER) (test mEq/L code = 3603750503) Lab Interpretation (test Abnormal code = 22307-1) [facility] VENOUS BLOOD [id number] 22:45:06 Test Item Value Reference Range Interpretation Comments PH (test code = 7.32-7.42 H 6785593777) PCO2 JIM (test code = See_Comment L [Auto mated message] 1758411460) The system [employer] generated this result transmitted ref erence range: 41 - 51 mmHg. The reference r ivett was not used to interpret this result as normal/abnor mal. PO2 JIM (test code = See_Comment H [Autom ated message] 7175442884) The system [employer] generated this result transmitted ref erence range: 25 - 40 mmHg. The reference r ivett was not used to interpret this result as normal/abnor mal. HCO3 JIM (test code = See_Comment [Auto mated message] 1821283084) The system [employer] generated this result transmitted ref erence range: 24 - 28 mEq/L. The reference r ivett was not used to interpret this result as normal/abnor mal. AC VBE(BEAKER) (test mEq/L code = 7749480191) Lab Interpretation (test Abnormal code = 86301-7) [facility] VENOUS BLOOD [id number] 22:45:06 Test Item Value Reference Range Interpretation Comments PH (test code = 7.32-7.42 H 0443069790) PCO2 JIM (test code = See_Comment L [Auto mated message] 7642023494) The system [employer] generated this result transmitted ref erence range: 41 - 51 mmHg. The reference r ivett was not used to interpret this result as normal/abnor mal. PO2 JIM (test code = See_Comment H [Autom ated message] 4381925185) The system [employer] generated this result transmitted ref erence range: 25 - 40 mmHg. The reference r ivett was not used to interpret this result as normal/abnor mal. HCO3 JIM (test code = See_Comment [Auto mated message] 1029476705) The system [employer] generated this result transmitted ref erence range: 24 - 28 mEq/L. The reference r ivett was not used to interpret this result as normal/abnor mal. AC VBE(BEAKER) (test mEq/L code = 2725368183) Lab Interpretation (test Abnormal code = 71123-9) [facility] GLUCOSE (AUTOMATED)2020-11-17 21:15:56 Test Item Value Reference Range Interpretation Comments POCT GLU (test code = 2625643557) 233 mg/dL 70-110 H Lab Interpretation (test code = Abnormal 83283-3) [facility] GLUCOSE (AUTOMATED)2020-11-17 21:15:56 Test Item Value Reference Range Interpretation Comments POCT GLU (test code = 5076041128) 233 mg/dL 70-110 H Lab Interpretation (test code = Abnormal 22985-9) [facility] GLUCOSE (AUTOMATED)2020-11-17 21:15:56 Test Item Value Reference Range Interpretation Comments POCT GLU (test code = 8479627879) 233 mg/dL 70-110 H Lab Interpretation (test code = Abnormal 71785-7) [facility] [id number] 20:47:20COVID DMT InterpretationInterpretation/Recommendations: Molecular NAAT Tests for Active Infection with the SARS-CoV-2 Virus: The patient has currently tested negative for the SARS-CoV-2 virus that causes COVID-19 illness. This most likely indicates that the patient does not have an active infection with the SARS-CoV-2 virus. However, infection is not completely ruled out as the false negative rate for molecular NAAT testing using a nasopharyngeal sample can be up to 30%, mostly dependent on the timing of sample collection in relation to illness onset and any deficiencies in sampling techniques. If the patient has symptoms concerning for COVID-19 illness, a repeat NAAT test (PCR, Rapid ID Now, etc.) should be performed, at which time the SARS-CoV-2 virus - if present - may have reached a detectable viral load (usually peaking by the end of the first week of symptoms). Tests for IgM and/or IgG Antibodies to the SARS-CoV-2 Virus: If the patient develops COVID-19 illness in the future, testing for IgM and IgG antibodies approximately 3 weeks after illness onset will likely indicate if the patient has produced antibodies to the SARS-CoV-2 virus. However, some patients may take longer to develop detectable antibodies, while some patients who were infected with SARS-CoV-2 may never develop antibodies. While antibodies to SARS-CoV-2 may provide some degree of immunity, at this time the strength and duration of the antibody response is unknown. Interpretation Result Comments:These interpretation comments are based upon all COVID-19 testing the patient has had at [facility], including molecular NAAT testing (more commonly known as PCR testing and Rapid ID Now testing) and antibody testing. It does not take into account any testingthat a patient has had outside of the [facility] medical record. [facility] LABORATORY SERVICESCOVID JrntbdmCQXV-PaP-3 Rapid ID NOW (no units) ? ? Date ? Value ? 11/17/2020 ? Not Detected ? ? ? 11/11/2020 ? Not Detected ? ? ? 11/05/2020 ? Not Detected ? [facility] [id number] 20:47:20COVID DMT InterpretationInterpretation/Recommendations: Molecular NAAT Tests for Active Infection with the SARS-CoV-2 Virus: The patient has currently tested negative for the SARS-CoV-2 virus that causes COVID-19 illness. This most likely indicates that the patient does not have an active infection with the SARS-CoV-2 virus. However, infection is not completely ruled out as the false negative rate for molecular NAAT testing using a nasopharyngeal sample can be up to 30%, mostly dependent on the timing of sample collection in relation to illness onset and any deficiencies in sampling techniques. If the patient has symptoms concerning for COVID-19 illness, a repeat NAAT test (PCR, Rapid ID Now, etc.) should be performed, at which time the SARS-CoV-2 virus - if present - may have reached a detectable viral load (usually peaking by the end of the first week of symptoms). Tests for IgM and/or IgG Antibodies to the SARS-CoV-2 Virus: If the patient develops COVID-19 illness in the future, testing for IgM and IgG antibodies approximately 3 weeks after illness onset will likely indicate if the patient has produced antibodies to the SARS-CoV-2 virus. However, some patients may take longer to develop detectable antibodies, while some patients who were infected with SARS-CoV-2 may never develop antibodies. While antibodies to SARS-CoV-2 may provide some degree of immunity, at this time the strength and duration of the antibody response is unknown. Interpretation Result Comments:These interpretation comments are based upon all COVID-19 testing the patient has had at [facility], including molecular NAAT testing (more commonly known as PCR testing and Rapid ID Now testing) and antibody testing. It does not take into account any testingthat a patient has had outside of the [facility] medical record. [facility] LABORATORY SERVICESCOVID TjffiqdGWAX-XlE-4 Rapid ID NOW (no units) ? ? Date ? Value ? 11/17/2020 ? Not Detected ? ? ? 11/11/2020 ? Not Detected ? ? ? 11/05/2020 ? Not Detected ? [facility] COVID [id number] 20:47:20COVID DMT InterpretationInterpretation/Recommendations: Molecular NAAT Tests for Active Infection with the SARS-CoV-2 Virus: The patient has currently tested negative for the SARS-CoV-2 virus that causes COVID-19 illness. This most likely indicates that the patient does not have an active infection with the SARS-CoV-2 virus. However, infection is not completely ruled out as the false negative rate for molecular NAAT testing using a nasopharyngeal sample can be up to 30%, mostly dependent on the timing of sample collection in relation to illness onset and any deficiencies in sampling techniques. If the patient has symptoms concerning for COVID-19 illness, a repeat NAAT test (PCR, Rapid ID Now, etc.) should be performed, at which time the SARS-CoV-2 virus - if present - may have reached a detectable viral load (usually peaking by the end of the first week of symptoms). Tests for IgM and/or IgG Antibodies to the SARS-CoV-2 Virus: If the patient develops COVID-19 illness in the future, testing for IgM and IgG antibodies approximately 3 weeks after illness onset will likely indicate if the patient has produced antibodies to the SARS-CoV-2 virus. However, some patients may take longer to develop detectable antibodies, while some patients who were infected with SARS-CoV-2 may never develop antibodies. While antibodies to SARS-CoV-2 may provide some degree of immunity, at this time the strength and duration of the antibody response is unknown. Interpretation Result Comments:These interpretation comments are based upon all COVID-19 testing the patient has had at [facility], including molecular NAAT testing (more commonly known as PCR testing and Rapid ID Now testing) and antibody testing. It does not take into account any testingthat a patient has had outside of the [facility] medical record. [facility] LABORATORY SERVICESCOVID OciduvvKMHJ-BuJ-3 Rapid ID NOW (no units) ? ? Date ? Value ? 11/17/2020 ? Not Detected ? ? ? 11/11/2020 ? Not Detected ? ? ? 11/05/2020 ? Not Detected ? [facility] 2020-11-17 19:39:18 Test Item Value Reference Range Interpretation Comments POCT GLU (test code = 6016040123) 163 mg/dL 70-110 H Lab Interpretation (test code = Abnormal 19151-3) [facility] GLUCOSE (AUTOMATED)2020-11-17 19:39:18 Test Item Value Reference Range Interpretation Comments POCT GLU (test code = 1671665902) 163 mg/dL 70-110 H Lab Interpretation (test code = Abnormal 68323-5) [facility] GLUCOSE (AUTOMATED)2020-11-17 19:39:18 Test Item Value Reference Range Interpretation Comments POCT GLU (test code = 0600142811) 163 mg/dL 70-110 H Lab Interpretation (test code = Abnormal 89977-9) [facility] RAPID TESTING)2020-11-17 12:47:19 Test Item Value Reference Range Interpretation Comments SARS-CoV-2 Rapid ID NOW Not Detected Not Detected (test code = 66006-3) PATTI (test code = PATTI) ID NOW COVID-19 Assay is an isothermal nucleic acid amplification test intended for the qualitative detection of nucleic acid from SARS-CoV-2 viral RNA in nasopharyngeal ([employer]ACHINE [employer]) specimens. It is used under Emergency Use Authorization (EUA) by FDA. The limit of detection (LOD) of the assay is 125 Genome Equivalents/mL. A positive result is indicative of the presence of SARS-CoV-2 RNA. ?Clinical correlation with patient history and other diagnostic information is necessary to determine patient infection status. A negative (Not Detected) result does not preclude SARS-CoV-2 infection. In patients with clinical symptoms and other tests that are consistent with SARS-CoV-2 infection, negative results should be treated as presumptive negative and a new specimen should be tested with alternative PCR molecular test. Invalid: Please collect a new specimen for repeat patient testing if clinically indicated. 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 It is used under Emergency Use Authorization (EUA) by FDA. The limit of detection (LOD) of the assay is 125 Genome Equivalents/mL. A positive result is indicative of the presence of SARS-CoV-2 RNA. ?Clinical correlation with patient history and other diagnostic information is necessary to determine patient infection status. A negative (Not Detected) result does not preclude SARS-CoV-2 infection. In patients with clinical symptoms and other tests that are consistent with SARS-CoV-2 infection, negative results should be treated as presumptive negative and a new specimen should be tested with alternative PCR molecular test. Invalid: Please collect a new specimen for repeat patient testing if clinically indicated. 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 It is used under Emergency Use Authorization (EUA) by [facility]. The limit of detection (LOD) of the assay is 125 Genome Equivalents/mL. A positive result is indicative of the presence of SARS-CoV-2 RNA. ?Clinical correlation with patient history and other diagnostic information is necessary to determine patient infection status. A negative (Not Detected) result does not preclude SARS-CoV-2 infection. In patients with clinical symptoms and other tests that are consistent with SARS-CoV-2 infection, negative results should be treated as presumptive negative and a new specimen should be tested with alternative PCR molecular test. Invalid: Please collect a new specimen for repeat patient testing if clinically indicated. Lab Interpretation Normal (test code = 39555-0) [facility] GLUCOSE (AUTOMATED)2020-11-17 12:32:28 Test Item Value Reference Range Interpretation Comments POCT GLU (test code = 0657517930) 219 mg/dL 70-110 H Lab Interpretation (test code = Abnormal 58816-1) [facility] GLUCOSE (AUTOMATED)2020-11-17 12:32:28 Test Item Value Reference Range Interpretation Comments POCT GLU (test code = 3804470046) 219 mg/dL 70-110 H Lab Interpretation (test code = Abnormal 31259-7) [facility] GLUCOSE (AUTOMATED)2020-11-17 12:32:28 Test Item Value Reference Range Interpretation Comments POCT GLU (test code = 2825702399) 219 mg/dL 70-110 H Lab Interpretation (test code = Abnormal 24180-7) [facility] and Screen - ONCE [id number] 11:01:26 Test Item Value Reference Range Interpretation Comments ABO & RH (test code A POSITIVE Performe d at [facility] = 20) Laboratory [facility] Blood [address] s [id number] Free: [phone] A No. [id number] IAT (test code = Negative Performed a t [facility] 1185) Laboratory [facility] Blood [facility] [place] [address] s [address]Wmjq Free: [phone] A No. [id number] [facility] and Screen - ONCE [id number] 11:01:26 Test Item Value Reference Range Interpretation Comments ABO & RH (test code A POSITIVE Performe d at [facility] = 20) Laboratory [facility] Blood [facility] [place] [address] s [address]Qqrq Free: [phone] A No. [id number] IAT (test code = Negative Performed a t [facility] 1185) Laboratory [facility] Blood [facility] [address] [place] [address] s [address]Skre Free: [phone] A No. [id number] [facility] and Screen - ONCE [id number] 11:01:26 Test Item Value Reference Range Interpretation Comments ABO & RH (test code A POSITIVE Performe d at [facility] = 20) Laboratory Serv [facility] Blood Bank3 [facility] [address]Jrmk Free: [phone] A No. [id number] IAT (test code = Negative Performed a t [facility] 1185) Laboratory Serv [facility] Blood [facility]3 [facility] [address]Qeje Free: [phone] A No. [id number] [facility] METABOLIC PANEL (NA, K, CL, CO2, GLUCOSE, BUN, CREATININE, CA)2020-11-17 10:21:26 Test Item Value Reference Range Interpretation Comments NA (test code = 137 mmol/L 135-145 3918116059) K (test code = 4.1 mmol/L 3.5-5.0 2936583466) CL (test code = 103 mmol/L 98-108 9256530531) CO2 TOTAL (test code = 26 mmol/L 23-31 6724905743) AGAP (test code = 2-16 9565925946) BUN (test code = 9 mg/dL 7-23 4758068903) GLUCOSE (test code = 185 mg/dL 70-110 H 8805430651) CREATININE (test code = 0.61 mg/dL 0.60-1.25 4748023894) CALCIUM (test code = 9.1 mg/dL 8.6-10.6 3720174569) eGFR (test code = mL/min/1.73m2 8887783267) PATTI (test code = PATTI) Association of Glomerular Filtration Rate (GFR) and Staging of Kidney Disease* + --+ --+ ------+| GFR (mL/min/1.73 m2) ?| With Kidney Damage ?| ?Without Kidney Damage+ --------+ --------+ +| ?>90 ?| ?Stage one ?| ? Normal ?+ ---+ ---+ -------+| ?60-89 ?| ?Stage two ?| ? Decreased GFR ? + --+ --+ ------+| ?30-59 ?| ?Stage three ?| ? Stage three ? + --+ --+ ------+| ?15-29 ?| ?Stage four ? | ? Stage four ?+ ---+ ---+ -------+| ?<15 (or dialysis) ? ?| ?Stage five ? | ? Stage five ?+ ---+ ---+ -------+ *Each stage assumes the associated GFR level has been in effect for at least three months. ?Stages 1 to 5, with or without kidney disease, indicate chronic kidney disease. Notes: Determination of stages one and two (with eGFR >59mL/min/1.73 m2) requires estimation of kidney damage for at least three months as defined by structural or functional abnormalities of the kidney, manifested by either:Pathological abnormalities or Markers of kidney damage (including abnormalities in the composition of the blood or urine or abnormalities in imaging tests). Lab Interpretation Abnormal (test code = 10766-4) [facility] METABOLIC PANEL (NA, K, CL, CO2, GLUCOSE, BUN, CREATININE, CA)2020-11-17 10:21:26 Test Item Value Reference Range Interpretation Comments NA (test code = 137 mmol/L 135-145 7721652946) K (test code = 4.1 mmol/L 3.5-5.0 8321937605) CL (test code = 103 mmol/L 98-108 7631770170) CO2 TOTAL (test code = 26 mmol/L 23-31 2393686582) AGAP (test code = 2-16 6565936304) BUN (test code = 9 mg/dL 7-23 3613555370) GLUCOSE (test code = 185 mg/dL 70-110 H 8245300398) CREATININE (test code = 0.61 mg/dL 0.60-1.25 5937236190) CALCIUM (test code = 9.1 mg/dL 8.6-10.6 2851389465) eGFR (test code = mL/min/1.73m2 4903038044) PATTI (test code = PATTI) Association of Glomerular Filtration Rate (GFR) and Staging of Kidney Disease* + --+ --+ ------+| GFR (mL/min/1.73 m2) ?| With Kidney Damage ?| ?Without Kidney Damage+ --------+ --------+ +| ?>90 ?| ?Stage one ?| ? Normal ?+ ---+ ---+ -------+| ?60-89 ?| ?Stage two ?| ? Decreased GFR ? + --+ --+ ------+| ?30-59 ?| ?Stage three ?| ? Stage three ? + --+ --+ ------+| ?15-29 ?| ?Stage four ? | ? Stage four ?+ ---+ ---+ -------+| ?<15 (or dialysis) ? ?| ?Stage five ? | ? Stage five ?+ ---+ ---+ -------+ *Each stage assumes the associated GFR level has been in effect for at least three months. ?Stages 1 to 5, with or without kidney disease, indicate chronic kidney disease. Notes: Determination of stages one and two (with eGFR >59mL/min/1.73 m2) requires estimation of kidney damage for at least three months as defined by structural or functional abnormalities of the kidney, manifested by either:Pathological abnormalities or Markers of kidney damage (including abnormalities in the composition of the blood or urine or abnormalities in imaging tests). Lab Interpretation Abnormal (test code = 70892-0) [facility] METABOLIC PANEL (NA, K, CL, CO2, GLUCOSE, BUN, CREATININE, CA)2020-11-17 10:21:26 Test Item Value Reference Range Interpretation Comments NA (test code = 137 mmol/L 135-145 3100192245) K (test code = 4.1 mmol/L 3.5-5.0 5819956713) CL (test code = 103 mmol/L 98-108 0903978735) CO2 TOTAL (test code = 26 mmol/L 23-31 8175291701) AGAP (test code = 2-16 2801688241) BUN (test code = 9 mg/dL 7-23 1287683491) GLUCOSE (test code = 185 mg/dL 70-110 H 9458406686) CREATININE (test code = 0.61 mg/dL 0.60-1.25 7147778054) CALCIUM (test code = 9.1 mg/dL 8.6-10.6 3096909593) eGFR (test code = mL/min/1.73m2 9719441415) PATTI (test code = PATTI) Association of Glomerular Filtration Rate (GFR) and Staging of Kidney Disease* + --+ --+ ------+| GFR (mL/min/1.73 m2) ?| With Kidney Damage ?| ?Without Kidney Damage+ --------+ --------+ +| ?>90 ?| ?Stage one ?| ? Normal ?+ ---+ ---+ -------+| ?60-89 ?| ?Stage two ?| ? Decreased GFR ? + --+ --+ ------+| ?30-59 ?| ?Stage three ?| ? Stage three ? + --+ --+ ------+| ?15-29 ?| ?Stage four ? | ? Stage four ?+ ---+ ---+ -------+| ?<15 (or dialysis) ? ?| ?Stage five ? | ? Stage five ?+ ---+ ---+ -------+ *Each stage assumes the associated GFR level has been in effect for at least three months. ?Stages 1 to 5, with or without kidney disease, indicate chronic kidney disease. Notes: Determination of stages one and two (with eGFR >59mL/min/1.73 m2) requires estimation of kidney damage for at least three months as defined by structural or functional abnormalities of the kidney, manifested by either:Pathological abnormalities or Markers of kidney damage (including abnormalities in the composition of the blood or urine or abnormalities in imaging tests). Lab Interpretation Abnormal (test code = 59786-8) [facility]2021-05-19 10:14:48 Test Item Value Reference Range Interpretation Comments MAGNESIUM (test code = 2214358042) 2.2 mg/dL 1.7-2.4 Lab Interpretation (test code = Normal 55865-2) [facility]2021-05-19 10:14:48 Test Item Value Reference Range Interpretation Comments PHOSPHORUS (test code = 3088175169) 4.3 mg/dL 2.5-5.0 Lab Interpretation (test code = Normal 21355-9) [facility]2021-05-19 10:14:48 Test Item Value Reference Range Interpretation Comments MAGNESIUM (test code = 5564483317) 2.2 mg/dL 1.7-2.4 Lab Interpretation (test code = Normal 03953-3) [facility]2021-05-19 10:14:48 Test Item Value Reference Range Interpretation Comments PHOSPHORUS (test code = 9657037393) 4.3 mg/dL 2.5-5.0 Lab Interpretation (test code = Normal 35910-7) [facility] 10:14:48 Test Item Value Reference Range Interpretation Comments MAGNESIUM (test code = 3132256592) 2.2 mg/dL 1.7-2.4 Lab Interpretation (test code = Normal 39368-7) [facility] 10:14:48 Test Item Value Reference Range Interpretation Comments PHOSPHORUS (test code = 4615290369) 4.3 mg/dL 2.5-5.0 Lab Interpretation (test code = Normal 06045-2) [facility] WITH RISF2030-22-18 09:41:01 Test Item Value Reference Range Interpretation Comments WBC (test code = See_Comment [Automated 6690-2) message] The sy stem which generated this result transmitted reference range : 4.20 - 10.70 10*3/?L. The reference range was not used to interpret this result as normal/abnormal . RBC (test code = See_Comment L [Automated 789-8) message] The sy stem which generated this result transmitted reference range : 4.26 - 5.52 10*6/?L. The reference range was not used to interpret this result as normal/abnormal . HGB (test code = 9.8 g/dL 12.2-16.4 L 718-7) HCT (test code = 30.2 % 38.4-49.3 L 4544-3) MCV (test code = 87.0 fL 81.7-95.6 787-2) MCH (test code = 28.2 pg 26.1-32.7 785-6) MCHC (test code = 32.5 g/dL 31.2-35.0 786-4) RDW-SD (test code = 41.1 fL 38.5-51.6 88679-3) RDW-CV (test code = 13.2 % 12.1-15.4 788-0) PLT (test code = See_Comment H [Automated 777-3) message] The sy stem which generated this result transmitted reference range : 150 - 328 10*3/ ?L. The reference r ivett was not used to interpret this result as normal/abnormal . MPV (test code = 8.4 fL 9.8-13.0 L 47041-3) NRBC/100 WBC (test See_Comment [Automat ed code = 5083202164) message] The system which generated this result transmitted reference range : 0.0 - 10.0 /100 WBCs. The refer ence range was not u sed to interpret th is result as normal/abnormal . NRBC x10^3 (test code <0.01 See_Comment [Auto mated = 8281080194) message] The s ystem which generated this result transmitted reference range : 10*3/?L. The reference range was not used to interpret this result as normal/abnormal . GRAN MAT (NEUT) % 61.3 % (test code = 770-8) IMM GRAN % (test code 0.80 % = 8592730045) LYMPH % (test code = 27.4 % 736-9) MONO % (test code = 6.8 % 5905-5) EOS % (test code = 3.1 % 713-8) BASO % (test code = 0.6 % 706-2) GRAN MAT x10^3(ANC) 5.92 10*3/uL 1.99-6.95 (test code = 2458833872) IMM GRAN x10^3 (test 0.08 10*3/uL 0.00-0.06 H code = 9821116425) LYMPH x10^3 (test code 2.65 10*3/uL 1.09-3.23 = 731-0) MONO x10^3 (test code 0.66 10*3/uL 0.36-1.02 = 742-7) EOS x10^3 (test code = 0.30 10*3/uL 0.06-0.53 711-2) BASO x10^3 (test code 0.06 10*3/uL 0.01-0.09 = 704-7) Lab Interpretation Abnormal (test code = 22043-6) [facility] WITH [id number] 09:41:01 Test Item Value Reference Range Interpretation Comments WBC (test code = See_Comment [Automated 6690-2) message] The sy stem which generated this result transmitted reference range : 4.20 - 10.70 10*3/?L. The reference range was not used to interpret this result as normal/abnormal . RBC (test code = See_Comment L [Automated 789-8) message] The sy stem which generated this result transmitted reference range : 4.26 - 5.52 10*6/?L. The reference range was not used to interpret this result as normal/abnormal . HGB (test code = 9.8 g/dL 12.2-16.4 L 718-7) HCT (test code = 30.2 % 38.4-49.3 L 4544-3) MCV (test code = 87.0 fL 81.7-95.6 787-2) MCH (test code = 28.2 pg 26.1-32.7 785-6) MCHC (test code = 32.5 g/dL 31.2-35.0 786-4) RDW-SD (test code = 41.1 fL 38.5-51.6 47019-9) RDW-CV (test code = 13.2 % 12.1-15.4 788-0) PLT (test code = See_Comment H [Automated 777-3) message] The sy stem which generated this result transmitted reference range : 150 - 328 10*3/ ?L. The reference r ivett was not used to interpret this result as normal/abnormal . MPV (test code = 8.4 fL 9.8-13.0 L 15261-7) NRBC/100 WBC (test See_Comment [Automat ed code = 5524906894) message] The system which generated this result transmitted reference range : 0.0 - 10.0 /100 WBCs. The refer ence range was not u sed to interpret th is result as normal/abnormal . NRBC x10^3 (test code <0.01 See_Comment [Auto mated = 8077610534) message] The s ystem which generated this result transmitted reference range : 10*3/?L. The reference range was not used to interpret this result as normal/abnormal . GRAN MAT (NEUT) % 61.3 % (test code = 770-8) IMM GRAN % (test code 0.80 % = 4572853238) LYMPH % (test code = 27.4 % 736-9) MONO % (test code = 6.8 % 5905-5) EOS % (test code = 3.1 % 713-8) BASO % (test code = 0.6 % 706-2) GRAN MAT x10^3(ANC) 5.92 10*3/uL 1.99-6.95 (test code = 4540517464) IMM GRAN x10^3 (test 0.08 10*3/uL 0.00-0.06 H code = 7526732468) LYMPH x10^3 (test code 2.65 10*3/uL 1.09-3.23 = 731-0) MONO x10^3 (test code 0.66 10*3/uL 0.36-1.02 = 742-7) EOS x10^3 (test code = 0.30 10*3/uL 0.06-0.53 711-2) BASO x10^3 (test code 0.06 10*3/uL 0.01-0.09 = 704-7) Lab Interpretation Abnormal (test code = 83376-9) [facility] WITH [id number] 09:41:01 Test Item Value Reference Range Interpretation Comments WBC (test code = See_Comment [Automated 6690-2) message] The sy stem which generated this result transmitted reference range : 4.20 - 10.70 10*3/?L. The reference range was not used to interpret this result as normal/abnormal . RBC (test code = See_Comment L [Automated 359-8) message] The sy stem which generated this result transmitted reference range : 4.26 - 5.52 10*6/?L. The reference range was not used to interpret this result as normal/abnormal . HGB (test code = 9.8 g/dL 12.2-16.4 L 718-7) HCT (test code = 30.2 % 38.4-49.3 L 4544-3) MCV (test code = 87.0 fL 81.7-95.6 787-2) MCH (test code = 28.2 pg 26.1-32.7 785-6) MCHC (test code = 32.5 g/dL 31.2-35.0 786-4) RDW-SD (test code = 41.1 fL 38.5-51.6 13117-9) RDW-CV (test code = 13.2 % 12.1-15.4 788-0) PLT (test code = See_Comment H [Automated 777-3) message] The sy stem which generated this result transmitted reference range : 150 - 328 10*3/ ?L. The reference r ivett was not used to interpret this result as normal/abnormal . MPV (test code = 8.4 fL 9.8-13.0 L 23015-2) NRBC/100 WBC (test See_Comment [Automat ed code = 6292829400) message] The system which generated this result transmitted reference range : 0.0 - 10.0 /100 WBCs. The refer ence range was not u sed to interpret th is result as normal/abnormal . NRBC x10^3 (test code <0.01 See_Comment [Auto mated = 9071196699) message] The s ystem which generated this result transmitted reference range : 10*3/?L. The reference range was not used to interpret this result as normal/abnormal . GRAN MAT (NEUT) % 61.3 % (test code = 770-8) IMM GRAN % (test code 0.80 % = 5769697609) LYMPH % (test code = 27.4 % 736-9) MONO % (test code = 6.8 % 5905-5) EOS % (test code = 3.1 % 713-8) BASO % (test code = 0.6 % 706-2) GRAN MAT x10^3(ANC) 5.92 10*3/uL 1.99-6.95 (test code = 8317525492) IMM GRAN x10^3 (test 0.08 10*3/uL 0.00-0.06 H code = 6332114783) LYMPH x10^3 (test code 2.65 10*3/uL 1.09-3.23 = 731-0) MONO x10^3 (test code 0.66 10*3/uL 0.36-1.02 = 742-7) EOS x10^3 (test code = 0.30 10*3/uL 0.06-0.53 711-2) BASO x10^3 (test code 0.06 10*3/uL 0.01-0.09 = 704-7) Lab Interpretation Abnormal (test code = 62823-7) [facility] GLUCOSE (AUTOMATED)2020-11-17 09:14:55 Test Item Value Reference Range Interpretation Comments POCT GLU (test code = 7898298065) 184 mg/dL 70-110 H Lab Interpretation (test code = Abnormal 27545-7) [facility] GLUCOSE (AUTOMATED)2020-11-17 09:14:55 Test Item Value Reference Range Interpretation Comments POCT GLU (test code = 3431231992) 184 mg/dL 70-110 H Lab Interpretation (test code = Abnormal 39697-6) [facility] GLUCOSE (AUTOMATED)2020-11-17 09:14:55 Test Item Value Reference Range Interpretation Comments POCT GLU (test code = 7808728114) 184 mg/dL 70-110 H Lab Interpretation (test code = Abnormal 74058-1) [facility] GLUCOSE (AUTOMATED)2020-11-17 05:15:23 Test Item Value Reference Range Interpretation Comments POCT GLU (test code = 4979329903) 212 mg/dL 70-110 H Lab Interpretation (test code = Abnormal 22085-7) [facility] GLUCOSE (AUTOMATED)2020-11-17 05:15:23 Test Item Value Reference Range Interpretation Comments POCT GLU (test code = 8446094406) 212 mg/dL 70-110 H Lab Interpretation (test code = Abnormal 23226-9) [facility] GLUCOSE (AUTOMATED)2020-11-17 05:15:23 Test Item Value Reference Range Interpretation Comments POCT GLU (test code = 9465555734) 212 mg/dL 70-110 H Lab Interpretation (test code = Abnormal 49434-7) [facility] GLUCOSE (AUTOMATED)2020-11-17 01:07:44 Test Item Value Reference Range Interpretation Comments POCT GLU (test code = 9494331925) 160 mg/dL 70-110 H Lab Interpretation (test code = Abnormal 48259-8) [facility] GLUCOSE (AUTOMATED)2020-11-17 01:07:44 Test Item Value Reference Range Interpretation Comments POCT GLU (test code = 0853523261) 160 mg/dL 70-110 H Lab Interpretation (test code = Abnormal 50943-2) [facility] GLUCOSE (AUTOMATED)2020-11-17 01:07:44 Test Item Value Reference Range Interpretation Comments POCT GLU (test code = 6323741394) 160 mg/dL 70-110 H Lab Interpretation (test code = Abnormal 28740-1) [facility] GLUCOSE (AUTOMATED)2020-11-16 22:05:13 Test Item Value Reference Range Interpretation Comments POCT GLU (test code = 2393960946) 148 mg/dL 70-110 H Lab Interpretation (test code = Abnormal 90919-4) [facility] GLUCOSE (AUTOMATED)2020-11-16 22:05:13 Test Item Value Reference Range Interpretation Comments POCT GLU (test code = 9235846054) 148 mg/dL 70-110 H Lab Interpretation (test code = Abnormal 40068-4) [facility] GLUCOSE (AUTOMATED)2020-11-16 22:05:13 Test Item Value Reference Range Interpretation Comments POCT GLU (test code = 8975536548) 148 mg/dL 70-110 H Lab Interpretation (test code = Abnormal 78230-3) [facility] GLUCOSE (AUTOMATED)2020-11-16 17:03:03 Test Item Value Reference Range Interpretation Comments POCT GLU (test code = 0562923329) 149 mg/dL 70-110 H Lab Interpretation (test code = Abnormal 85622-5) [facility] GLUCOSE (AUTOMATED)2020-11-16 17:03:03 Test Item Value Reference Range Interpretation Comments POCT GLU (test code = 1208046086) 149 mg/dL 70-110 H Lab Interpretation (test code = Abnormal 88746-4) [facility] GLUCOSE (AUTOMATED)2020-11-16 17:03:03 Test Item Value Reference Range Interpretation Comments POCT GLU (test code = 7913438582) 149 mg/dL 70-110 H Lab Interpretation (test code = Abnormal 82450-3) [facility] GLUCOSE (AUTOMATED)2020-11-16 12:56:39 Test Item Value Reference Range Interpretation Comments POCT GLU (test code = 3556027166) 105 mg/dL 70-110 Lab Interpretation (test code = Normal 73463-5) [facility] GLUCOSE (AUTOMATED)2020-11-16 12:56:39 Test Item Value Reference Range Interpretation Comments POCT GLU (test code = 6665358069) 105 mg/dL 70-110 Lab Interpretation (test code = Normal 28152-4) [facility] GLUCOSE (AUTOMATED)2020-11-16 12:56:39 Test Item Value Reference Range Interpretation Comments POCT GLU (test code = 8414669193) 105 mg/dL 70-110 Lab Interpretation (test code = Normal 60449-4) [facility] Test Item Value Reference Range Interpretation Comments MAGNESIUM (test code = 5052825899) 2.2 mg/dL 1.7-2.4 Lab Interpretation (test code = Normal 90600-1) [facility] Test Item Value Reference Range Interpretation Comments PHOSPHORUS (test code = 8248258616) 4.4 mg/dL 2.5-5.0 Lab Interpretation (test code = Normal 30387-8) [facility] Test Item Value Reference Range Interpretation Comments MAGNESIUM (test code = 1986284121) 2.2 mg/dL 1.7-2.4 Lab Interpretation (test code = Normal 22122-8) [facility]:54:26 Test Item Value Reference Range Interpretation Comments PHOSPHORUS (test code = 5961184437) 4.4 mg/dL 2.5-5.0 Lab Interpretation (test code = Normal 09396-5) [facility] Test Item Value Reference Range Interpretation Comments MAGNESIUM (test code = 6519815486) 2.2 mg/dL 1.7-2.4 Lab Interpretation (test code = Normal 30572-0) [facility]:54:26 Test Item Value Reference Range Interpretation Comments PHOSPHORUS (test code = 9800991400) 4.4 mg/dL 2.5-5.0 Lab Interpretation (test code = Normal 15805-2) [facility] (NA, K, CL, CO2, GLUCOSE, BUN, CREATININE, CA)2020-11-16 10:54:25 Test Item Value Reference Range Interpretation Comments NA (test code = 138 mmol/L 135-145 0361835758) K (test code = 3.8 mmol/L 3.5-5.0 3828710780) CL (test code = 105 mmol/L 98-108 6115778252) CO2 TOTAL (test code = 28 mmol/L 23-31 6626624082) AGAP (test code = 2-16 8069525020) BUN (test code = 8 mg/dL 7-23 3667719375) GLUCOSE (test code = 92 mg/dL 70-110 9573638078) CREATININE (test code = 0.48 mg/dL 0.60-1.25 L 1649364117) CALCIUM (test code = 8.8 mg/dL 8.6-10.6 6802302579) eGFR (test code = mL/min/1.73m2 2803479161) PATTI (test code = PATTI) Association of Glomerular Filtration Rate (GFR) and Staging of Kidney Disease* + --+ --+ ------+| GFR (mL/min/1.73 m2) ?| With Kidney Damage ?| ?Without Kidney Damage+ --------+ --------+ +| ?>90 ?| ?Stage one ?| ? Normal ?+ ---+ ---+ -------+| ?60-89 ?| ?Stage two ?| ? Decreased GFR ? + --+ --+ ------+| ?30-59 ?| ?Stage three ?| ? Stage three ? + --+ --+ ------+| ?15-29 ?| ?Stage four ? | ? Stage four ?+ ---+ ---+ -------+| ?<15 (or dialysis) ? ?| ?Stage five ? | ? Stage five ?+ ---+ ---+ -------+ *Each stage assumes the associated GFR level has been in effect for at least three months. ?Stages 1 to 5, with or without kidney disease, indicate chronic kidney disease. Notes: Determination of stages one and two (with eGFR >59mL/min/1.73 m2) requires estimation of kidney damage for at least three months as defined by structural or functional abnormalities of the kidney, manifested by either:Pathological abnormalities or Markers of kidney damage (including abnormalities in the composition of the blood or urine or abnormalities in imaging tests). Lab Interpretation Abnormal (test code = 11638-1) [facility] METABOLIC PANEL (NA, K, CL, CO2, GLUCOSE, BUN, CREATININE, CA)2020-11-16 10:54:25 Test Item Value Reference Range Interpretation Comments NA (test code = 138 mmol/L 135-145 5202849253) K (test code = 3.8 mmol/L 3.5-5.0 7472311894) CL (test code = 105 mmol/L 98-108 4064059222) CO2 TOTAL (test code = 28 mmol/L 23-31 8816862670) AGAP (test code = 2-16 2776115009) BUN (test code = 8 mg/dL 7-23 0159139868) GLUCOSE (test code = 92 mg/dL 70-110 3204548922) CREATININE (test code = 0.48 mg/dL 0.60-1.25 L 2405929704) CALCIUM (test code = 8.8 mg/dL 8.6-10.6 7353945259) eGFR (test code = mL/min/1.73m2 0946009099) PATTI (test code = PTATI) Association of Glomerular Filtration Rate (GFR) and Staging of Kidney Disease* + --+ --+ ------+| GFR (mL/min/1.73 m2) ?| With Kidney Damage ?| ?Without Kidney Damage+ --------+ --------+ +| ?>90 ?| ?Stage one ?| ? Normal ?+ ---+ ---+ -------+| ?60-89 ?| ?Stage two ?| ? Decreased GFR ? + --+ --+ ------+| ?30-59 ?| ?Stage three ?| ? Stage three ? + --+ --+ ------+| ?15-29 ?| ?Stage four ? | ? Stage four ?+ ---+ ---+ -------+| ?<15 (or dialysis) ? ?| ?Stage five ? | ? Stage five ?+ ---+ ---+ -------+ *Each stage assumes the associated GFR level has been in effect for at least three months. ?Stages 1 to 5, with or without kidney disease, indicate chronic kidney disease. Notes: Determination of stages one and two (with eGFR >59mL/min/1.73 m2) requires estimation of kidney damage for at least three months as defined by structural or functional abnormalities of the kidney, manifested by either:Pathological abnormalities or Markers of kidney damage (including abnormalities in the composition of the blood or urine or abnormalities in imaging tests). Lab Interpretation Abnormal (test code = 11802-6) [facility] METABOLIC PANEL (NA, K, CL, CO2, GLUCOSE, BUN, CREATININE, CA)2020-11-16 10:54:25 Test Item Value Reference Range Interpretation Comments NA (test code = 138 mmol/L 135-145 5829946040) K (test code = 3.8 mmol/L 3.5-5.0 5522291493) CL (test code = 105 mmol/L 98-108 9195473340) CO2 TOTAL (test code = 28 mmol/L 23-31 2517099781) AGAP (test code = 2-16 1372444725) BUN (test code = 8 mg/dL 7-23 7046219819) GLUCOSE (test code = 92 mg/dL 70-110 9952990333) CREATININE (test code = 0.48 mg/dL 0.60-1.25 L 1126574003) CALCIUM (test code = 8.8 mg/dL 8.6-10.6 3290358827) eGFR (test code = mL/min/1.73m2 3847231039) PATTI (test code = PATTI) Association of Glomerular Filtration Rate (GFR) and Staging of Kidney Disease* + --+ --+ ------+| GFR (mL/min/1.73 m2) ?| With Kidney Damage ?| ?Without Kidney Damage+ --------+ --------+ +| ?>90 ?| ?Stage one ?| ? Normal ?+ ---+ ---+ -------+| ?60-89 ?| ?Stage two ?| ? Decreased GFR ? + --+ --+ ------+| ?30-59 ?| ?Stage three ?| ? Stage three ? + --+ --+ ------+| ?15-29 ?| ?Stage four ? | ? Stage four ?+ ---+ ---+ -------+| ?<15 (or dialysis) ? ?| ?Stage five ? | ? Stage five ?+ ---+ ---+ -------+ *Each stage assumes the associated GFR level has been in effect for at least three months. ?Stages 1 to 5, with or without kidney disease, indicate chronic kidney disease. Notes: Determination of stages one and two (with eGFR >59mL/min/1.73 m2) requires estimation of kidney damage for at least three months as defined by structural or functional abnormalities of the kidney, manifested by either:Pathological abnormalities or Markers of kidney damage (including abnormalities in the composition of the blood or urine or abnormalities in imaging tests). Lab Interpretation Abnormal (test code = 43425-8) [facility] WITHOUT [id number] 10:20:45 Test Item Value Reference Range Interpretation Comments WBC (test code = 6690-2) See_Comment [A utomated message] The system [employer] generated this result transmit marcelina reference range : 4.20 - 10.70 10*3/?L. The reference range was not used to interpret this result as normal/abnormal . RBC (test code = 789-8) See_Comment L [Au tomated message] The system [employer] generated this result transmit marcelina reference range : 4.26 - 5.52 10* 6/?L. The reference r ivett was not used to interpret this result as normal/abnormal . HGB (test code = 718-7) 9.3 g/dL 12.2-16.4 L HCT (test code = 4544-3) 28.3 % 38.4-49.3 L MCH (test code = 785-6) 28.8 pg 26.1-32.7 MCV (test code = 787-2) 87.6 fL 81.7-95.6 MCHC (test code = 786-4) 32.9 g/dL 31.2-35.0 PLT (test code = 777-3) See_Comment H [Au tomated message] The system [employer] generated this result transmit marcelina reference range : 150 - 328 10*3/?L. The reference range was not used to interpret this result as normal/abnormal . MPV (test code = 8.4 fL 9.8-13.0 L 40613-4) RDW-CV (test code = 13.2 % 12.1-15.4 788-0) RDW-SD (test code = 42.0 fL 38.5-51.6 27644-2) NRBC x10^3 (test code = <0.01 See_Comment [Au tomated message] 1255588488) The system [employer] generated this result transmit marcelina reference range : 10*3/?L. The reference range was not used to interpret this result as normal/abnormal . NRBC/100 WBC (test code See_Comment [Au tomated message] = 7309274747) [facility] this result transmit marcelina reference range : 0.0 - 10.0 /100 WBC s. The reference r ivett was not used to interpret this result as normal/abnormal . IPF % (test code = 9873256635) Lab Interpretation (test Abnormal code = 71066-2) [facility] WITHOUT [id number] 10:20:45 Test Item Value Reference Range Interpretation Comments WBC (test code = 6690-2) See_Comment [A utomated message] The system [employer] generated this result transmit marcelina reference range : 4.20 - 10.70 10*3/?L. The reference range was not used to interpret this result as normal/abnormal . RBC (test code = 789-8) See_Comment L [Au tomated message] The system [employer] generated this result transmit macrelina reference range : 4.26 - 5.52 10* 6/?L. The reference r ivett was not used to interpret this result as normal/abnormal . HGB (test code = 718-7) 9.3 g/dL 12.2-16.4 L HCT (test code = 4544-3) 28.3 % 38.4-49.3 L MCH (test code = 785-6) 28.8 pg 26.1-32.7 MCV (test code = 787-2) 87.6 fL 81.7-95.6 MCHC (test code = 786-4) 32.9 g/dL 31.2-35.0 PLT (test code = 777-3) See_Comment H [Au tomated message] The system [employer] generated this result transmit marcelina reference range : 150 - 328 10*3/?L. The reference range was not used to interpret this result as normal/abnormal . MPV (test code = 8.4 fL 9.8-13.0 L 65291-4) RDW-CV (test code = 13.2 % 12.1-15.4 788-0) RDW-SD (test code = 42.0 fL 38.5-51.6 33833-3) NRBC x10^3 (test code = <0.01 See_Comment [Au tomated message] 8168246014) The system [employer] generated this result transmit marcelina reference range : 10*3/?L. The reference range was not used to interpret this result as normal/abnormal . NRBC/100 WBC (test code See_Comment [Au tomated message] = 8063968079) [facility] this result transmit marcelina reference range : 0.0 - 10.0 /100 WBC s. The reference r ivett was not used to interpret this result as normal/abnormal . IPF % (test code = 5840104286) Lab Interpretation (test Abnormal code = 56952-4) [facility] WITHOUT [id number] 10:20:45 Test Item Value Reference Range Interpretation Comments WBC (test code = 6690-2) See_Comment [A utomated message] The system [employer] generated this result transmit marcelina reference range : 4.20 - 10.70 10*3/?L. The reference range was not used to interpret this result as normal/abnormal . RBC (test code = 789-8) See_Comment L [Au tomated message] The system [employer] generated this result transmit marcelina reference range : 4.26 - 5.52 10* 6/?L. The reference r ivett was not used to interpret this result as normal/abnormal . HGB (test code = 718-7) 9.3 g/dL 12.2-16.4 L HCT (test code = 4544-3) 28.3 % 38.4-49.3 L MCH (test code = 785-6) 28.8 pg 26.1-32.7 MCV (test code = 787-2) 87.6 fL 81.7-95.6 MCHC (test code = 786-4) 32.9 g/dL 31.2-35.0 PLT (test code = 777-3) See_Comment H [Au tomated message] The system [employer] generated this result transmit marcelina reference range : 150 - 328 10*3/?L. The reference range was not used to interpret this result as normal/abnormal . MPV (test code = 8.4 fL 9.8-13.0 L 98751-0) RDW-CV (test code = 13.2 % 12.1-15.4 788-0) RDW-SD (test code = 42.0 fL 38.5-51.6 07973-9) NRBC x10^3 (test code = <0.01 See_Comment [Au tomated message] 5784014893) The system [employer] generated this result transmit marcelina reference range : 10*3/?L. The reference range was not used to interpret this result as normal/abnormal . NRBC/100 WBC (test code See_Comment [Au tomated message] = 3134407055) The system [employer] generated this result transmit marcelina reference range : 0.0 - 10.0 /100 WBC s. The reference r ivett was not used to interpret this result as normal/abnormal . IPF % (test code = 7167849200) Lab Interpretation (test Abnormal code = 13756-8) [facility] GLUCOSE (AUTOMATED)2020-11-16 09:16:41 Test Item Value Reference Range Interpretation Comments POCT GLU (test code = 2220453252) 91 mg/dL 70-110 Lab Interpretation (test code = Normal 43175-5) [facility] GLUCOSE (AUTOMATED)2020-11-16 09:16:41 Test Item Value Reference Range Interpretation Comments POCT GLU (test code = 3007514352) 91 mg/dL 70-110 Lab Interpretation (test code = Normal 77595-8) [facility] GLUCOSE (AUTOMATED)2020-11-16 09:16:41 Test Item Value Reference Range Interpretation Comments POCT GLU (test code = 4351996643) 91 mg/dL 70-110 Lab Interpretation (test code = Normal 84653-2) [facility] GLUCOSE (AUTOMATED)2020-11-16 05:12:36 Test Item Value Reference Range Interpretation Comments POCT GLU (test code = 3929065934) 95 mg/dL 70-110 Lab Interpretation (test code = Normal 58187-9) [facility] 05:12:36 Test Item Value Reference Range Interpretation Comments POCT GLU (test code = 4275479012) 95 mg/dL 70-110 Lab Interpretation (test code = Normal 94384-5) [facility] GLUCOSE (AUTOMATED)2020-11-16 05:12:36 Test Item Value Reference Range Interpretation Comments POCT GLU (test code = 4767850227) 95 mg/dL 70-110 Lab Interpretation (test code = Normal 38150-4) [facility] GLUCOSE (AUTOMATED)2020-11-16 01:12:32 Test Item Value Reference Range Interpretation Comments POCT GLU (test code = 0258358170) 130 mg/dL 70-110 H Lab Interpretation (test code = Abnormal 73019-1) [facility] GLUCOSE (AUTOMATED)2020-11-16 01:12:32 Test Item Value Reference Range Interpretation Comments POCT GLU (test code = 9957596021) 130 mg/dL 70-110 H Lab Interpretation (test code = Abnormal 14188-4) [facility] GLUCOSE (AUTOMATED)2020-11-16 01:12:32 Test Item Value Reference Range Interpretation Comments POCT GLU (test code = 6346454992) 130 mg/dL 70-110 H Lab Interpretation (test code = Abnormal 93118-8) [facility] GLUCOSE (AUTOMATED)2020-11-15 21:38:55 Test Item Value Reference Range Interpretation Comments POCT GLU (test code = 2391234375) 222 mg/dL 70-110 H Lab Interpretation (test code = Abnormal 98423-3) [facility] GLUCOSE (AUTOMATED)2020-11-15 21:38:55 Test Item Value Reference Range Interpretation Comments POCT GLU (test code = 8876345065) 222 mg/dL 70-110 H Lab Interpretation (test code = Abnormal 98343-0) [facility] GLUCOSE (AUTOMATED)2020-11-15 21:38:55 Test Item Value Reference Range Interpretation Comments POCT GLU (test code = 1608098312) 222 mg/dL 70-110 H Lab Interpretation (test code = Abnormal 32352-4) [facility] GLUCOSE (AUTOMATED)2020-11-15 18:15:53 Test Item Value Reference Range Interpretation Comments POCT GLU (test code = 0902543075) 274 mg/dL 70-110 H Lab Interpretation (test code = Abnormal 76525-3) [facility] GLUCOSE (AUTOMATED)2020-11-15 18:15:53 Test Item Value Reference Range Interpretation Comments POCT GLU (test code = 9611009320) 274 mg/dL 70-110 H Lab Interpretation (test code = Abnormal 56905-6) [facility] GLUCOSE (AUTOMATED)2020-11-15 18:15:53 Test Item Value Reference Range Interpretation Comments POCT GLU (test code = 6701343005) 274 mg/dL 70-110 H Lab Interpretation (test code = Abnormal 83422-5) [facility] GLUCOSE (AUTOMATED)2020-11-15 14:29:22 Test Item Value Reference Range Interpretation Comments POCT GLU (test code = 7580704992) 123 mg/dL 70-110 H Lab Interpretation (test code = Abnormal 32351-6) [facility] GLUCOSE (AUTOMATED)2020-11-15 14:29:22 Test Item Value Reference Range Interpretation Comments POCT GLU (test code = 1683889148) 123 mg/dL 70-110 H Lab Interpretation (test code = Abnormal 22446-5) [facility] GLUCOSE (AUTOMATED)2020-11-15 14:29:22 Test Item Value Reference Range Interpretation Comments POCT GLU (test code = 8066415641) 123 mg/dL 70-110 H Lab Interpretation (test code = Abnormal 15860-6) [facility] GLUCOSE (AUTOMATED)2020-11-15 09:56:46 Test Item Value Reference Range Interpretation Comments POCT GLU (test code = 0246310804) 96 mg/dL 70-110 Lab Interpretation (test code = Normal 70913-0) [facility] GLUCOSE (AUTOMATED)2020-11-15 09:56:46 Test Item Value Reference Range Interpretation Comments POCT GLU (test code = 8818324777) 96 mg/dL 70-110 Lab Interpretation (test code = Normal 05500-4) [facility] GLUCOSE (AUTOMATED)2020-11-15 09:56:46 Test Item Value Reference Range Interpretation Comments POCT GLU (test code = 4701301575) 96 mg/dL 70-110 Lab Interpretation (test code = Normal 22393-3) [facility] GLUCOSE (AUTOMATED)2020-11-15 05:16:57 Test Item Value Reference Range Interpretation Comments POCT GLU (test code = 4003342278) 194 mg/dL 70-110 H Lab Interpretation (test code = Abnormal 87799-6) [facility] GLUCOSE (AUTOMATED)2020-11-15 05:16:57 Test Item Value Reference Range Interpretation Comments POCT GLU (test code = 3125159898) 194 mg/dL 70-110 H Lab Interpretation (test code = Abnormal 16388-9) [facility] GLUCOSE (AUTOMATED)2020-11-15 05:16:57 Test Item Value Reference Range Interpretation Comments POCT GLU (test code = 6368119618) 194 mg/dL 70-110 H Lab Interpretation (test code = Abnormal 24043-1) [facility] GLUCOSE (AUTOMATED)2020-11-15 02:05:21 Test Item Value Reference Range Interpretation Comments POCT GLU (test code = 4030232763) 246 mg/dL 70-110 H Lab Interpretation (test code = Abnormal 70098-8) [facility] GLUCOSE (AUTOMATED)2020-11-15 02:05:21 Test Item Value Reference Range Interpretation Comments POCT GLU (test code = 9728743051) 246 mg/dL 70-110 H Lab Interpretation (test code = Abnormal 19896-9) [facility] GLUCOSE (AUTOMATED)2020-11-15 02:05:21 Test Item Value Reference Range Interpretation Comments POCT GLU (test code = 8968479893) 246 mg/dL 70-110 H Lab Interpretation (test code = Abnormal 75775-7) [facility] GLUCOSE (AUTOMATED)2020-11-14 21:33:18 Test Item Value Reference Range Interpretation Comments POCT GLU (test code = 9760187093) 195 mg/dL 70-110 H Lab Interpretation (test code = Abnormal 90720-5) [facility] GLUCOSE (AUTOMATED)2020-11-14 21:33:18 Test Item Value Reference Range Interpretation Comments POCT GLU (test code = 8588129887) 195 mg/dL 70-110 H Lab Interpretation (test code = Abnormal 11503-8) [facility] 21:33:18 Test Item Value Reference Range Interpretation Comments POCT GLU (test code = [id number]) 195 mg/dL 70-110 H Lab Interpretation (test code = Abnormal 08964-2) [facility] GLUCOSE (AUTOMATED)2020-11-14 17:38:25 Test Item Value Reference Range Interpretation Comments POCT GLU (test code = 9155710314) 159 mg/dL 70-110 H Lab Interpretation (test code = Abnormal 93372-0) [facility] GLUCOSE (AUTOMATED)2020-11-14 17:38:25 Test Item Value Reference Range Interpretation Comments POCT GLU (test code = 3026852749) 159 mg/dL 70-110 H Lab Interpretation (test code = Abnormal 98376-5) [facility] GLUCOSE (AUTOMATED)2020-11-14 17:38:25 Test Item Value Reference Range Interpretation Comments POCT GLU (test code = 0203709900) 159 mg/dL 70-110 H Lab Interpretation (test code = Abnormal 83092-4) [facility] GLUCOSE (AUTOMATED)2020-11-14 12:45:19 Test Item Value Reference Range Interpretation Comments POCT GLU (test code = 6051506389) 110 mg/dL 70-110 Lab Interpretation (test code = Normal 59560-7) [facility] GLUCOSE (AUTOMATED)2020-11-14 12:45:19 Test Item Value Reference Range Interpretation Comments POCT GLU (test code = 5433673995) 110 mg/dL 70-110 Lab Interpretation (test code = Normal 63074-4) [facility] 12:45:19 Test Item Value Reference Range Interpretation Comments POCT GLU (test code = 3048918324) 110 mg/dL 70-110 Lab Interpretation (test code = Normal 74976-3) [facility] GLUCOSE (AUTOMATED)2020-11-14 09:47:10 Test Item Value Reference Range Interpretation Comments POCT GLU (test code = 1687959833) 128 mg/dL 70-110 H Lab Interpretation (test code = Abnormal 73053-3) [facility] GLUCOSE (AUTOMATED)2020-11-14 09:47:10 Test Item Value Reference Range Interpretation Comments POCT GLU (test code = 7533483607) 128 mg/dL 70-110 H Lab Interpretation (test code = Abnormal 58194-3) [facility] GLUCOSE (AUTOMATED)2020-11-14 09:47:10 Test Item Value Reference Range Interpretation Comments POCT GLU (test code = 2865458872) 128 mg/dL 70-110 H Lab Interpretation (test code = Abnormal 82276-6) [facility] GLUCOSE (AUTOMATED)2020-11-14 05:01:31 Test Item Value Reference Range Interpretation Comments POCT GLU (test code = 4127041009) 218 mg/dL 70-110 H Lab Interpretation (test code = Abnormal 49206-8) [facility] GLUCOSE (AUTOMATED)2020-11-14 05:01:31 Test Item Value Reference Range Interpretation Comments POCT GLU (test code = 3340588669) 218 mg/dL 70-110 H Lab Interpretation (test code = Abnormal 15216-9) [facility] GLUCOSE (AUTOMATED)2020-11-14 05:01:31 Test Item Value Reference Range Interpretation Comments POCT GLU (test code = 2531049950) 218 mg/dL 70-110 H Lab Interpretation (test code = Abnormal 61665-8) [facility] GLUCOSE (AUTOMATED)2020-11-14 01:16:24 Test Item Value Reference Range Interpretation Comments POCT GLU (test code = 8189557686) 139 mg/dL 70-110 H Lab Interpretation (test code = Abnormal 19089-3) [facility] GLUCOSE (AUTOMATED)2020-11-14 01:16:24 Test Item Value Reference Range Interpretation Comments POCT GLU (test code = 5165945673) 139 mg/dL 70-110 H Lab Interpretation (test code = Abnormal 89396-0) [facility] GLUCOSE (AUTOMATED)2020-11-14 01:16:24 Test Item Value Reference Range Interpretation Comments POCT GLU (test code = 0034644194) 139 mg/dL 70-110 H Lab Interpretation (test code = Abnormal 56583-4) [facility] GLUCOSE (AUTOMATED)2020-11-13 22:09:35 Test Item Value Reference Range Interpretation Comments POCT GLU (test code = 2999721023) 216 mg/dL 70-110 H Lab Interpretation (test code = Abnormal 14934-5) [facility] GLUCOSE (AUTOMATED)2020-11-13 22:09:35 Test Item Value Reference Range Interpretation Comments POCT GLU (test code = 3937568247) 216 mg/dL 70-110 H Lab Interpretation (test code = Abnormal 22022-4) [facility] GLUCOSE (AUTOMATED)2020-11-13 22:09:35 Test Item Value Reference Range Interpretation Comments POCT GLU (test code = 4896125562) 216 mg/dL 70-110 H Lab Interpretation (test code = Abnormal 00959-5) [facility] GLUCOSE (AUTOMATED)2020-11-13 17:34:17 Test Item Value Reference Range Interpretation Comments POCT GLU (test code = 9848905883) 124 mg/dL 70-110 H Lab Interpretation (test code = Abnormal 92870-4) [facility] GLUCOSE (AUTOMATED)2020-11-13 17:34:17 Test Item Value Reference Range Interpretation Comments POCT GLU (test code = 9256756275) 124 mg/dL 70-110 H Lab Interpretation (test code = Abnormal 74362-0) [facility] GLUCOSE (AUTOMATED)2020-11-13 17:34:17 Test Item Value Reference Range Interpretation Comments POCT GLU (test code = 6241014767) 124 mg/dL 70-110 H Lab Interpretation (test code = Abnormal 02478-5) [facility] GLUCOSE (AUTOMATED)2020-11-13 14:54:42 Test Item Value Reference Range Interpretation Comments POCT GLU (test code = 4107109384) 133 mg/dL 70-110 H Lab Interpretation (test code = Abnormal 77054-4) [facility] GLUCOSE (AUTOMATED)2020-11-13 14:54:42 Test Item Value Reference Range Interpretation Comments POCT GLU (test code = 8429764717) 133 mg/dL 70-110 H Lab Interpretation (test code = Abnormal 25493-3) [facility] GLUCOSE (AUTOMATED)2020-11-13 14:54:42 Test Item Value Reference Range Interpretation Comments POCT GLU (test code = 5093804115) 133 mg/dL 70-110 H Lab Interpretation (test code = Abnormal 82501-4) [facility] METABOLIC PANEL (NA, K, CL, CO2, GLUCOSE, BUN, CREATININE, CA)2020-11-13 14:34:20 Test Item Value Reference Range Interpretation Comments NA (test code = 137 mmol/L 135-145 4259391034) K (test code = 3.8 mmol/L 3.5-5.0 2546734434) CL (test code = 101 mmol/L 98-108 8880937586) CO2 TOTAL (test code = 31 mmol/L 23-31 5867492285) AGAP (test code = 2-16 4636233255) BUN (test code = 7 mg/dL 7-23 8683614476) GLUCOSE (test code = 126 mg/dL 70-110 H 8186952261) CREATININE (test code = 0.50 mg/dL 0.60-1.25 L 0463820384) CALCIUM (test code = 8.2 mg/dL 8.6-10.6 L 8887029735) eGFR (test code = mL/min/1.73m2 9338562682) PATTI (test code = PATTI) Association of Glomerular Filtration Rate (GFR) and Staging of Kidney Disease* + --+ --+ ------+| GFR (mL/min/1.73 m2) ?| With Kidney Damage ?| ?Without Kidney Damage+ --------+ --------+ +| ?>90 ?| ?Stage one ?| ? Normal ?+ ---+ ---+ -------+| ?60-89 ?| ?Stage two ?| ? Decreased GFR ? + --+ --+ ------+| ?30-59 ?| ?Stage three ?| ? Stage three ? + --+ --+ ------+| ?15-29 ?| ?Stage four ? | ? Stage four ?+ ---+ ---+ -------+| ?<15 (or dialysis) ? ?| ?Stage five ? | ? Stage five ?+ ---+ ---+ -------+ *Each stage assumes the associated GFR level has been in effect for at least three months. ?Stages 1 to 5, with or without kidney disease, indicate chronic kidney disease. Notes: Determination of stages one and two (with eGFR >59mL/min/1.73 m2) requires estimation of kidney damage for at least three months as defined by structural or functional abnormalities of the kidney, manifested by either:Pathological abnormalities or Markers of kidney damage (including abnormalities in the composition of the blood or urine or abnormalities in imaging tests). Lab Interpretation Abnormal (test code = 42798-9) [facility] METABOLIC PANEL (NA, K, CL, CO2, GLUCOSE, BUN, CREATININE, CA)2020-11-13 14:34:20 Test Item Value Reference Range Interpretation Comments NA (test code = 137 mmol/L 135-145 8749966666) K (test code = 3.8 mmol/L 3.5-5.0 7420373826) CL (test code = 101 mmol/L 98-108 4494629074) CO2 TOTAL (test code = 31 mmol/L 23-31 4900797530) AGAP (test code = 2-16 7169734426) BUN (test code = 7 mg/dL 7-23 1338794317) GLUCOSE (test code = 126 mg/dL 70-110 H 7344943078) CREATININE (test code = 0.50 mg/dL 0.60-1.25 L 7242884680) CALCIUM (test code = 8.2 mg/dL 8.6-10.6 L 8315973653) eGFR (test code = mL/min/1.73m2 7204379647) PATTI (test code = PATTI) Association of Glomerular Filtration Rate (GFR) and Staging of Kidney Disease* + --+ --+ ------+| GFR (mL/min/1.73 m2) ?| With Kidney Damage ?| ?Without Kidney Damage+ --------+ --------+ +| ?>90 ?| ?Stage one ?| ? Normal ?+ ---+ ---+ -------+| ?60-89 ?| ?Stage two ?| ? Decreased GFR ? + --+ --+ ------+| ?30-59 ?| ?Stage three ?| ? Stage three ? + --+ --+ ------+| ?15-29 ?| ?Stage four ? | ? Stage four ?+ ---+ ---+ -------+| ?<15 (or dialysis) ? ?| ?Stage five ? | ? Stage five ?+ ---+ ---+ -------+ *Each stage assumes the associated GFR level has been in effect for at least three months. ?Stages 1 to 5, with or without kidney disease, indicate chronic kidney disease. Notes: Determination of stages one and two (with eGFR >59mL/min/1.73 m2) requires estimation of kidney damage for at least three months as defined by structural or functional abnormalities of the kidney, manifested by either:Pathological abnormalities or Markers of kidney damage (including abnormalities in the composition of the blood or urine or abnormalities in imaging tests). Lab Interpretation Abnormal (test code = 56002-4) [facility] METABOLIC PANEL (NA, K, CL, CO2, GLUCOSE, BUN, CREATININE, CA)2020-11-13 14:34:20 Test Item Value Reference Range Interpretation Comments NA (test code = 137 mmol/L 135-145 6146233087) K (test code = 3.8 mmol/L 3.5-5.0 7507070668) CL (test code = 101 mmol/L 98-108 6640891363) CO2 TOTAL (test code = 31 mmol/L 23-31 6346473963) AGAP (test code = 2-16 6302619685) BUN (test code = 7 mg/dL 7-23 0292173676) GLUCOSE (test code = 126 mg/dL 70-110 H 6098023626) CREATININE (test code = 0.50 mg/dL 0.60-1.25 L 7605104171) CALCIUM (test code = 8.2 mg/dL 8.6-10.6 L 4667887212) eGFR (test code = mL/min/1.73m2 8629107751) PATTI (test code = PATTI) Association of Glomerular Filtration Rate (GFR) and Staging of Kidney Disease* + --+ --+ ------+| GFR (mL/min/1.73 m2) ?| With Kidney Damage ?| ?Without Kidney Damage+ --------+ --------+ +| ?>90 ?| ?Stage one ?| ? Normal ?+ ---+ ---+ -------+| ?60-89 ?| ?Stage two ?| ? Decreased GFR ? + --+ --+ ------+| ?30-59 ?| ?Stage three ?| ? Stage three ? + --+ --+ ------+| ?15-29 ?| ?Stage four ? | ? Stage four ?+ ---+ ---+ -------+| ?<15 (or dialysis) ? ?| ?Stage five ? | ? Stage five ?+ ---+ ---+ -------+ *Each stage assumes the associated GFR level has been in effect for at least three months. ?Stages 1 to 5, with or without kidney disease, indicate chronic kidney disease. Notes: Determination of stages one and two (with eGFR >59mL/min/1.73 m2) requires estimation of kidney damage for at least three months as defined by structural or functional abnormalities of the kidney, manifested by either:Pathological abnormalities or Markers of kidney damage (including abnormalities in the composition of the blood or urine or abnormalities in imaging tests). Lab Interpretation Abnormal (test code = 02863-4) [facility] WITHOUT [id number] 14:10:22 Test Item Value Reference Range Interpretation Comments WBC (test code = 6690-2) See_Comment [A utomated message] The system [employer] generated this result transmit marcelina reference range : 4.20 - 10.70 10*3/?L. The reference range was not used to interpret this result as normal/abnormal . RBC (test code = 789-8) See_Comment L [Au tomated message] The system [employer] generated this result transmit marcelina reference range : 4.26 - 5.52 10* 6/?L. The reference r ivett was not used to interpret this result as normal/abnormal . HGB (test code = 718-7) 9.3 g/dL 12.2-16.4 L HCT (test code = 4544-3) 28.9 % 38.4-49.3 L MCH (test code = 785-6) 28.4 pg 26.1-32.7 MCV (test code = 787-2) 88.4 fL 81.7-95.6 MCHC (test code = 786-4) 32.2 g/dL 31.2-35.0 PLT (test code = 777-3) See_Comment H [Au tomated message] The system [employer] generated this result transmit marcelina reference range : 150 - 328 10*3/?L. The reference range was not used to interpret this result as normal/abnormal . MPV (test code = 8.9 fL 9.8-13.0 L 12816-3) RDW-CV (test code = 13.0 % 12.1-15.4 788-0) RDW-SD (test code = 42.2 fL 38.5-51.6 28044-0) NRBC x10^3 (test code = <0.01 See_Comment [Au tomated message] 3308854995) The system [employer] generated this result transmit marcelina reference range : 10*3/?L. The reference range was not used to interpret this result as normal/abnormal . NRBC/100 WBC (test code See_Comment [Au tomated message] = 8991457316) The system [employer] generated this result transmit marcelina reference range : 0.0 - 10.0 /100 WBC s. The reference r ivett was not used to interpret this result as normal/abnormal . IPF % (test code = 7105211909) Lab Interpretation (test Abnormal code = 58255-0) [facility] WITHOUT [id number] 14:10:22 Test Item Value Reference Range Interpretation Comments WBC (test code = 6690-2) See_Comment [A utomated message] The system [employer] generated this result transmit marcelina reference range : 4.20 - 10.70 10*3/?L. The reference range was not used to interpret this result as normal/abnormal . RBC (test code = 789-8) See_Comment L [Au tomated message] The system [employer] generated this result transmit marcelina reference range : 4.26 - 5.52 10* 6/?L. The reference r ivett was not used to interpret this result as normal/abnormal . HGB (test code = 718-7) 9.3 g/dL 12.2-16.4 L HCT (test code = 4544-3) 28.9 % 38.4-49.3 L MCH (test code = 785-6) 28.4 pg 26.1-32.7 MCV (test code = 787-2) 88.4 fL 81.7-95.6 MCHC (test code = 786-4) 32.2 g/dL 31.2-35.0 PLT (test code = 777-3) See_Comment H [Au tomated message] The system [employer] generated this result transmit marcelina reference range : 150 - 328 10*3/?L. The reference range was not used to interpret this result as normal/abnormal . MPV (test code = 8.9 fL 9.8-13.0 L 29274-7) RDW-CV (test code = 13.0 % 12.1-15.4 788-0) RDW-SD (test code = 42.2 fL 38.5-51.6 30098-9) NRBC x10^3 (test code = <0.01 See_Comment [Au tomated message] 1565386868) The system [employer] generated this result transmit marcelina reference range : 10*3/?L. The reference range was not used to interpret this result as normal/abnormal . NRBC/100 WBC (test code See_Comment [Au tomated message] = 6819221425) [facility] generated this result transmit marcelina reference range : 0.0 - 10.0 /100 WBC s. The reference r ivett was not used to interpret this result as normal/abnormal . IPF % (test code = 4314541218) Lab Interpretation (test Abnormal code = 34874-4) [facility] WITHOUT [id number] 14:10:22 Test Item Value Reference Range Interpretation Comments WBC (test code = 6690-2) See_Comment [A utomated message] The system [employer] generated this result transmit marcelina reference range : 4.20 - 10.70 10*3/?L. The reference range was not used to interpret this result as normal/abnormal . RBC (test code = 789-8) See_Comment L [Au tomated message] The system [employer] generated this result transmit marcelina reference range : 4.26 - 5.52 10* 6/?L. The reference r ivett was not used to interpret this result as normal/abnormal . HGB (test code = 718-7) 9.3 g/dL 12.2-16.4 L HCT (test code = 4544-3) 28.9 % 38.4-49.3 L MCH (test code = 785-6) 28.4 pg 26.1-32.7 MCV (test code = 787-2) 88.4 fL 81.7-95.6 MCHC (test code = 786-4) 32.2 g/dL 31.2-35.0 PLT (test code = 777-3) See_Comment H [Au tomated message] The system [employer] generated this result transmit marcelina reference range : 150 - 328 10*3/?L. The reference range was not used to interpret this result as normal/abnormal . MPV (test code = 8.9 fL 9.8-13.0 L 37117-3) RDW-CV (test code = 13.0 % 12.1-15.4 788-0) RDW-SD (test code = 42.2 fL 38.5-51.6 81146-9) NRBC x10^3 (test code = <0.01 See_Comment [Au tomated message] 3677360049) The system [employer] generated this result transmit marcelina reference range : 10*3/?L. The reference range was not used to interpret this result as normal/abnormal . NRBC/100 WBC (test code See_Comment [Au tomated message] = 1520138961) The system [employer] generated this result transmit marcelina reference range : 0.0 - 10.0 /100 WBC s. The reference r ivett was not used to interpret this result as normal/abnormal . IPF % (test code = 7334007486) Lab Interpretation (test Abnormal code = 19478-6) [facility] GLUCOSE (AUTOMATED)2020-11-13 12:59:00 Test Item Value Reference Range Interpretation Comments POCT GLU (test code = 5753099108) 158 mg/dL 70-110 H Lab Interpretation (test code = Abnormal 23138-2) [facility] GLUCOSE (AUTOMATED)2020-11-13 12:59:00 Test Item Value Reference Range Interpretation Comments POCT GLU (test code = 2773220031) 158 mg/dL 70-110 H Lab Interpretation (test code = Abnormal 34992-3) [facility] GLUCOSE (AUTOMATED)2020-11-13 12:59:00 Test Item Value Reference Range Interpretation Comments POCT GLU (test code = 1357065846) 158 mg/dL 70-110 H Lab Interpretation (test code = Abnormal 47504-3) [facility] GLUCOSE (AUTOMATED)2020-11-13 09:24:44 Test Item Value Reference Range Interpretation Comments POCT GLU (test code = 1795665458) 191 mg/dL 70-110 H Lab Interpretation (test code = Abnormal 60230-7) [facility] GLUCOSE (AUTOMATED)2020-11-13 09:24:44 Test Item Value Reference Range Interpretation Comments POCT GLU (test code = 2126936348) 191 mg/dL 70-110 H Lab Interpretation (test code = Abnormal 54355-6) [facility] GLUCOSE (AUTOMATED)2020-11-13 09:24:44 Test Item Value Reference Range Interpretation Comments POCT GLU (test code = 1829925351) 191 mg/dL 70-110 H Lab Interpretation (test code = Abnormal 78732-8) [facility] GLUCOSE (AUTOMATED)2020-11-13 05:10:08 Test Item Value Reference Range Interpretation Comments POCT GLU (test code = 8315738571) 230 mg/dL 70-110 H Lab Interpretation (test code = Abnormal 40970-1) [facility] GLUCOSE (AUTOMATED)2020-11-13 05:10:08 Test Item Value Reference Range Interpretation Comments POCT GLU (test code = 0913460047) 230 mg/dL 70-110 H Lab Interpretation (test code = Abnormal 91796-5) [facility] GLUCOSE (AUTOMATED)2020-11-13 05:10:08 Test Item Value Reference Range Interpretation Comments POCT GLU (test code = 7160623357) 230 mg/dL 70-110 H Lab Interpretation (test code = Abnormal 49327-7) [facility] GLUCOSE (AUTOMATED)2020-11-13 01:11:05 Test Item Value Reference Range Interpretation Comments POCT GLU (test code = 6933144888) 212 mg/dL 70-110 H Lab Interpretation (test code = Abnormal 05861-9) [facility] GLUCOSE (AUTOMATED)2020-11-13 01:11:05 Test Item Value Reference Range Interpretation Comments POCT GLU (test code = 5025980622) 212 mg/dL 70-110 H Lab Interpretation (test code = Abnormal 41939-6) [facility] GLUCOSE (AUTOMATED)2020-11-13 01:11:05 Test Item Value Reference Range Interpretation Comments POCT GLU (test code = 8381775405) 212 mg/dL 70-110 H Lab Interpretation (test code = Abnormal 50576-8) [facility] GLUCOSE (AUTOMATED)2020-11-12 21:26:04 Test Item Value Reference Range Interpretation Comments POCT GLU (test code = 0670573190) 143 mg/dL 70-110 H Lab Interpretation (test code = Abnormal 37150-0) [facility] GLUCOSE (AUTOMATED)2020-11-12 21:26:04 Test Item Value Reference Range Interpretation Comments POCT GLU (test code = 3347631964) 143 mg/dL 70-110 H Lab Interpretation (test code = Abnormal 24877-1) [facility] GLUCOSE (AUTOMATED)2020-11-12 21:26:04 Test Item Value Reference Range Interpretation Comments POCT GLU (test code = 2898978072) 143 mg/dL 70-110 H Lab Interpretation (test code = Abnormal 99336-5) [id number] 19:58:06 Test Item Value Reference Range Interpretation Comments Case Report (test code Surgical Pathology ? ? = [id number]) ?Case: [id number] ? Authorizing Provider: ?Eden Fuller MD ? Collected: ? 11/08/2020 0745 ?Ordering Location: ? ? [facility] OR ? Received: ?11/08/2020839 ? Department ? Pathologist: ? Kenia, ? MD Sona ?Specimens: ? A) - TOE, LEFT FOOT, 4TH DIGIT ? B) - TOE, LEFT FOOT 3RD TOE R/O OSTEO ? Final Diagnosis (test u4zbrEBzPIBpp0ilKGPtiT code = 0725353650) FuZzEwMzNcZnRuYmpcdWMx IHtccnRmMVxlcGljOTQwMl mtukVcWJYgrLVaE4Csekjt GPpbRT0rHV4qiWpncZJrvU GqIPJaRnSsb5fty992eLQi m1flWXUNmreweWc5m0bsUB IMPJaeNuPcZ149u5bms8zj leZwtVZ7jJygUZKootsyYs F9HGqlLAWtdkbwRIn9ZIrw CMDzwUK2EMEcsUKhM1QhMS ItRT1luii1JGR2WXysRIAd HnM8GALdxBEiKSPqpIwrGD mkz589DOO8UwQtVSEdzwPm gRbkmV0fXgFnUsghRNFmDv MyMCBBLiBMRUZUIEZPVVJU NBKEI4GoNCOWZKBEIFJYQ2 46XHBhclx+SU2cdxu+IC0g KTSAMLFtK2LZLH5LIHQYGR RKG0xtZWAmFSCuSXEeWHdI X7dITJdZWZsHGauKNQ5WKQ fSUZntDXQBVZOTDWHDS2WS T3RvJy9IVVDXPX7CGSQdxu x+JL5nrmd+LU4mT94PZQBV NWXNDEVtOuKDVIWGOC1VPH 1QPixKMnZzMa7ZCGJCZLII HIBnGXLtslKjQMRfFX6lJ3 XUESIMAANzAS3AVAWZA47D JHYFQTGQEUyNBN9HMmOBTh OWJ88DKFALU6vuUZHFRRWd T9KHAA1JHHASJJZTZndyPE hFXHBhciAgICAgICAgQVJU MJRFLCRIITWXCgSFL0KRVQ USVFDFDZuGQDkJMWSQQ2Ds IF0OABPTPRKDDL7USGVjuk xmczIyXHBhclxmMFxmczIw IEIuIExFRlQgVEhJUkQgVE 4ACLANJVNOVMVMRD4SZqat YXJcflx+BB1fRE3nUMQLOR NlA0EZNI3GNEWIAFFDW1px PMFlNOUtIHDmRRnWU1zDAB nUHBoNVurMUQ0CLMmPUDtn BOIBGFAEKUHXX8ODZ0YpLg 7RUCPSDU3QASNtuya+XH5c flx+KM0yX13ZUXDUEXSTRQ PiYaMXAHMALZ1VKF2IGpwX SbCtZl2OSHXKLKCLPAUiXP NngvBaSALbBM4jVMRfVPZF UEFSQVRFIFVOREVTSUdOQV GKNFJKYtMHIUSKCLHcR7Rt VYNPXaJwW0lARvKFJ9OMTU SYO7YMI39ZEOzBAApQGyHH SEVccGFyICAgICAgICBBUl EAH0LOFRTtA6HLTtQTFMZq TGZORQ6KW3EQRNFWTKEFOa BTZhZVPV5JAHPUF85smDBc XHBhcmRcZjBcZnMyMlxwYX JcZjFccGFyfXtccnRmMVxz b1ExP3SeYfEwFGnaugVfSH DsKbzmuqfdQMDjMHY6jbZf DBIoLXjoYFOcVJjqPe0bcT UauRnjCrCqMUUrt0nqmjLQ VPkpZoVtK311TZHaTBjdl3 pse9HuGFQbsDEls1Z2JJSN hgjavMt9fZtiB45la6Y3St nnK9glHPTnTBEtJ6LwFV4a KZRyEfs1JDO6JHV5ERKaTS CrJ5CzAS1kYJXulMOaKLf3 m3aydRsbFRKeNHO1v0ywHT qpmwZ0PH1ljp0xdZd2q9he czEgRGVmYXVsdCBQYXJhZ3 EmpRhwEt7myWi8jPdiHwgr VLI5Hap7LK9ygy12sxd1wK vfQCRoumfsOyR7DSawEJVp dqyhACc2NWayLJFepVD2TX OhwBQoN2WhJNNvTU1qmlu1 FTZ2VWfjRSCnJtY5WLBrkE HvFHHsbJfwWOnrv925GEC5 NtObZC0oD8Mig6L5gV9mpF KgPFPssFThLgXtBYJvgr6s zTVoBKmld7MiL44nkST2EP rpe1bkJE3hFbE8vrUmOJhn v5drhF0vTcS9ZWeeXA6gju 48GAVjKSR1li1tqYCozDqr vjMdqRJjANckM3GsFIIuk7 08ZTLsR6WgLPPff0D3ueEi CkQfCNGenAT0ifR3NSWtQS j9dAPotgH2rsVmdBEoG5ii kL4rTAWvXZ4zkjwdx1zeFP egWZvuOMWqqMH4rxO2IUIk qOUiJ2XesU7wDLXaBSopOI Qsycb5MnXgOf2cwEIlqZxz MFxzYmtwYWdlXHBnbmNvbn RccGduZGVjXHBsYWluXHBs YWluXGYwXGZzMjRccGFyZF dcy1IpekSnfNcpEGZeXVk2 pdHcxesjjBp2mAPnmLoePD GrrEtkqU8fGdCsJwUbRCqm XO4sFSLeR9dufCNaLWAjOE OhA3bbFoDkpF2gpOcjOFve ZjJcZnMyMFxsdHJjaFxwYX IgSSBoYXZlIHBlcnNvbmFs qBrcslK7gMR5ZMBuKSasHN SoPFAncNGmmh2ctWenWANd EW5fRBNzorDdOJutpIbpRG lvYVH6OMLgmFZcpHQuvYBt ZSBieSByZXNpZGVudHMsIG FddEczf9Nge7YrhQM9pY6m m7kfg9HjOELuoUR6RW18yg N8pT5zZJVxSA3kFURsWP4p bZDiuEXvASTvg20xoUwewh ByZXBvcnQuXHBsYWluXGYx XGZzMjBcbGFuZzEwMzNcaG ljaFxmMVxkYmNoXGYxXGxv F2tlHySiI8DaYVDpYuThcP HeRNFdtrxdKBUsv5MyNvQg p9beSBkrm6ukbZh2INzjaH KxxjhyYJrpclE2QMKbEAfx XGYxXGZzMTRcbGFuZzEwMz NcaGljaFxmMVxkYmNoXGYx BXrvB9umKqCgK9NcTMFwNF LnxLIuE5hqBIC3pO8zf7vh r1XlyALaJcCdr6hpbjWjAO TvxRWgtzJkzECgMPSoz7Bn XJBbZDJeSYVQDd0EUQMzzA IkC9q2oZIGFI4rcLKvMNEe ROFrW8ElAmLGmvBcp6A4DJ VodQVzVZQVKIVixTHsU3c6 fBuuMImtOjk4FaUyhVadyU 3mWfJxDeUqIDteTZ7jRHXh U1slkQTfYEWiOKMbZ0hzSe IcpA2mgNepSEfcNuJgMtEe PFlwbCBjqAneZBP6pJ== Clinical Information Burn [T30.0] (test code = 8138948507) Gross Description (test r2wncKOaAGCnkMZMEQAiSx code = [id number]) kiuzRnSTNnnBBvN2Awhivv VRxyBD2rJD6ddHlpmGFkjO QbUL1CJIFvFoYbZYNsdKKj jtWxTrQkIOPcmGWgiJN8RL TjTN8rzwcwDDyuBGdeFVUn iyC7SOKwsGYkA1KdYDYtBE 5fixkkFWB2WUrmlO0ghxZA BnlpVt2aaMVplZffAjPtDr NoYXJzZXQwXGZuaWwgQXJp ZKf0cU3QMmetPFU8BNKJXb liOJPrFN3Uk6opTWZpqYKy WDC3FZpvyXLxXGAdLHOeNW r9XSKoMUzmeECxZG9xbNtc SaztsRjbo9QlxZYjODagWI XkJBEbAEypCEOzCT2RGyWp EHueJXMzEoxeFQa3AXn6MI 2GZrZcRQUsSRE6HKt1OYAi EVa3AVhtPG5EZWXqSDi6AF TsLPDuZIE7HTAsYIj4VGJe XFxmIEFyaWFsIFxcZnMgMT TfOEhqjWSgBL1umNahqMXr blxmczIwXHBhciANClxwbG FpblxlcGljTmVzdERvYzEg DQpcbHRycGFyXGxpbjBccm luMCANClxsdHJjaFxmczIy IFNwZWNpbWVuIEEgaXMgcm DoUBk4XNKkIqHqv8fpaGPq WBvlWEVav1t6mNM8yEZpaB E1kNPpjMtqQnJcIN1fjHHe CEIDWN16hJRertSsZIEwGW Q0APOks1TgMIQjrPR7fFHf hChunObbRyBmY2X7PJInVJ Mrz75nyLQ8axAhFxBlHLPw ds6ojjY1XK4qwZnhTgJkze ynWzM8j6IyLGOgHSPtdMYv ukBgGZ2fpLgsWpqaQK0eAZ EuNSBjbSBpbiBkaWFtZXRl xekbg1axP6fxeBPtDESiiv 72K2cxeiCyABBjmbGtdNMm R4rsQFUcPQ2jGKE5XFIqGJ LanBroTGPbl2wepCMxMUQs WEmtuuhqQJslUc3fHS7eIW IzKACje5K2XUMxs7X0UNGa gsNmn5pqsePzjtCzU3BnB7 Eafc94sjMppnOan2fgjDrp uC1tFQVcODWjKWEhIWFpDH CxX1Zef04drAZuT9dxWnDa T5LlqIadiuvnOaXrFFDbLW usNXppsT8aiyjvI4hiKTC1 rJPnrBTyZBOegqDtTcY0fB UgZGlzdGFsIGFuZCBtaWRk dIDuhPauzSIlvN2eoKKeQO 0HMEZyqrZCUmDbn29buT4p aIpjMNSaefYhjH9ckoFtkk UgdHdvIHVuZGVzaWduYXRl LJByn21wUWZwGBheYC92lg 8mL87rRQXvJWvkNE55VHsy qrBvVAVwdaFwuQU5GF8vw0 vktVLqOUJ3zCV7sPEyYSG7 dpAoQ5WnYHGnLqGqaLFuwa BkaWFtZXRlciBieSAwLjYg E81ebB7wjRNmZ9QrFEAleK Ybc9XdVWAeuLS4XVXbvqVn xNGbORAcQJKilNRbw1i1MV CbnfAzisIvC8TtIOWpZs7n WJLhOXXpwU9uVSecy6JpKL SuDXBkYDIsdbVcRZYvw40i YNXkUXwoNZ42YBaufKuaUO Nll87oGFKwRBHkyq42cNq1 HNNksgQnQ2OyETIqo3OdCr TzVEXvXD1vUMJnUTyfNWOs XP2esFAzTVJ0HSNoHXRfzV CmqmHaAA0jdRlrLY5ifR9q aXRlIGFuIGlycmVndWxhci BlbmQuIFxwYXIgDQpccGFy PB9TB2Htk9JzzJFcuXAcjZ KfnN26j4wiQPLwttDcrdCr gMBwWC0yDS6dBUBvdJKwq3 MgnUW1oDGzGPTjA0Twp30r KRUdPRNhdZSlaOY2HTNqcJ 7hWYWlCDAlEWSycUvtg6sd ZyBkZWNhbGNpZmljYXRpb2 0ne1YaY1Gtj6O7uJPkVTTi KWU6HdenoD5dNGroLMGgFO dISAQ0uD8tYKXqZKS7DBcf BDFcVHmOARndKA4wDoQnCT Mez0ymL2VaNpKolGpmy9Yz JNZvi3VxkAoxmxOsUZJirL 7uvXVvLN3OHIDdXHI2gC8k A3p0gUZcfyDfVCXzR0Nrj2 7sc1XgmU0xOOWwwGXqZ6Tk AWtnerXazsPkRB52IHCizn HbsIVeJE4CXLSfATT9AQWj YKB2dBMzUZ8irCM5WIFhPN wgaGVhZCwgcGVycGVuZGlj sUntwkk3SKQiZ6Dyv34fAB waWR87hLVfcPukoRXfCY1O DVC1BDUpagDlRrQpI39ngt Cgs9s0pONto08xSOWmBBIv dGljdWxhciBzdXJmYWNlLC FhTXHuGT4wmGD0tXNxwMxs u3PpfZwuhiCsNPFgnvPhyw FwqWhuWGMtACxiwRGvQT0A CNJqERpeJBJocTZDNJA7QR 4hVOzvmWIdicyeZAYrH8Wp G5TzslBizYJxTGPpgqBfn9 wjATL6LBZjhIDqxXKtFlNk FtvqLOU4VXl5FVucZIPwN4 SaN5XeNXmeWAC5WATkChLe XGRiICBPVlIgIiBZMzgwMD t6TxK5REp3QEUJYmAjDeYo VLTwOJU5CyIkSLp0GXa8LP aHHxZxEbH9QAu7KRacMWZ7 JeT8AIfofHHtEFgnDuXFzg lhbCBcXGZzIDEwIFxcZmwg IHpaC83uXlSvNKigWJVqJG ndkOnmqA2dDYNiY60hh2QO s4RrUB0BUAd1qkIravbgjX 1hBKFmzlJqJHpomWHiZ6wo UiHgAoUAoCNplJ1ztxRLTD psGZAwB1ZhrzTmISGjLBOw IGxhYmVsbGVkIHdpdGggdG vmFPHrmIpgmfPqE9M8odBy CY2aFBMNKTPusL1dHOMrYK IprICutHErk298RMWjqSNa ZCIiTWVJQ55gf1E2GK0iT1 B6UPpZUMIjxqAdC26xx5ay fFGtx0WzJKEhbqH4IUDrYZ KpLZ2rjiYcTUrjAFYoJVJt mjtwkF4iZHwkRoFxB75hnA 0fsKSoV7DaPZG7VIJxML6x TtVlT82peO6bARykbWJ5CK IpIHdoaWNoIGhhcyBhbiBp geJdK2SkIIKqJg8nKMEqRV TjqT7tbZCctiJwW8BnLQVh kYC9tTJyyEVcsJjrCGatmI eloJRnO2MylVDhm60jTuDq ENymNBIhHyRpmDhef2NoEY vgXXbftxqyKS0jzPHbyFNw uN6wmEqeNXIeqD4qXC7zPQ HzIcPmqKfku3BsERRkf4De uWaqbcOeNXLclQ5nMSWJGZ G5hL5jaK4kXZUdzvIebNYt SZWrweH0JCBvluHkUWYkg9 ZeMvGnkQN7CWqcIA2pJGOo ZSBhbmQgcHJveGltYWwgcG cskOQwiO2dRSalITStWNoc dOAhYH1DTAnyfnNlisI3hD GgO61iwWDppcHyCHatJSEr VdZpG43cnvUus3CvOo5uMP B4fDZqCENiZ45mkfV7WUBb lo62lUi5BDMqkpLlC7FwVZ Vvn1ClWzPlPPTlMW0pSSIh UBvjIAWeBF0eiSAdANO3EZ XpStSnzZQmvwVjXF2ycBip YGfheyEkqH8lTORoRCOooQ Ray2MiLReeXFMvUE7foA3a aXRlIGFuIGlycmVndWxhci Vnc47qYB8nfaezpsSylC2m ANFrEjcnR7hlMSZhTFYmTU EnnhWnJuZbD43fslCck2q5 iYFbETWipdUsTQzvT60nF8 D0EPU0HA8jj9odyYPqCIY7 iYB5nBPcHWG0dlVcE4CsAI EuMCBjbSBpbiBkaWFtZXRl gcPahVZgXgcwF23miP4jyP XbH7ToNB2lQZcvPCXsVWfr hFBwCZ9PV5UgtKfxhfRsw3 NeDmYhzRLsQD7QKcO9STMk EYGkK8Hyf5akez8al7T4EM Bnc7O8KQCgGTHwM8Nhr31e xYLmS7wgLMIpjhQNEeDnBl IuWNAkGEUthnGlgYz6UMYw b75vuKD7KMdiBUpqk9PuhE clxqYlTiG6y5LtWCBwijYC DgNuSOZ3WkHspuPjsS5vSS HoDVNzaYXfu3EnVMefLOJj HECtkfPwrgPlX5RySOVewQ VzUMD9vM6qAVIlRVQntBka WRp2WYOxusWWPpE0AZN4Od Agt68vPVGcTLveOB45DWei pZziY51pF7Q9ACVipqDuE9 KsVHVyz6FqAwSsQCsueXKn kEUmIYipeZhnhoy2JXNvJ0 Bvh09zZWzvHG22nXXpmCem bGluZSBcbGluZSBcbGluZS BLiNipINIJK8sgvJAlVGff IYWVZQbZJ2GIPPgusC4vUE 0DZMQdKBpoVGSexBXTSPE2 KW8qNQpabQXuitdlSZKxI3 VfT0BuhmHbdAYfGISvyiTy y0owBFW3JOBwmTEmgZTsSg MbOgcpVDK9VCuvc8nxVGW8 XHNsbXVsdDAgDQpcZnMxNn elELNqL2OkD2CzcyX2KRx2 Embedded Images (test code = [id number]) [facility] [id number] 19:58:06 Test Item Value Reference Range Interpretation Comments Case Report (test code Surgical Pathology ? ? = [id number]) ?Case: [id number] ? Authorizing Provider: ?Eden Fuller MD ? Collected: ? 11/08/2020 07 ?Ordering Location: ? ? [facility] OR ? Received: ?11/08/2020839 ? Department ? Pathologist: ? Kenia, ? Palawinnage, MD ?Specimens: ? A) - TOE, LEFT FOOT, 4TH DIGIT ? B) - TOE, LEFT FOOT 3RD TOE R/O OSTEO ? Final Diagnosis (test h4ckyVSxZDXrc6fiECNapD code = [id number]) FuZzEwMzNcZnRuYmpcdWMx IHtccnRmMVxlcGljOTQwMl dhxgXzNPJonWZpP2Oakwbo SXebUZ8lLE0ykRlzwGRxxC MtRAMoKoSzu3fbu848uKYa r3qcUBPMloagxTk3h7kyQU JDPYybAzKvS881x9zii4jy irWfuVB5bVfyLYChlbzdSz X6DXgpXPAtklwgXTq2NNug IGQpmBZ5ZNLjjBJbD5TrGW CdRW4pepf2YDY2OIheQBOk KbP1OPNjsWOwCDPwvYkfCO amd217VYV5DzVzNURfgjEe jIzilY0pMiKoUcenVXOvPp MyMCBBLiBMRUZUIEZPVVJU ZJDEV7JhIJPRHQPEVGOPG6 46XHBhclx+DS5isxh+IC0g ISSGKTEoZ6QMFI2MNDABHA YTU6ctVLPtVDUvUQQyFBtB M9mQYEkPIXtIMnkUJS6LLE yXXXpiERMBTCXTTQKNK3NI D2ObOz2JDHWGMB1DWPFjyb x+ZA7lzeh+QD3iS85LGIMI UODSTUDyNwADSZEGYF2YNP 9CVwtWFiTdZi9UCRPBQICN XDEaCQTvbsTnZNFcWS2vM5 JAGOXBOTLkRX3JNOUVB50H CXOBMRFWFGvAWP5TOlRXLq BKS07OXFKBN0wlRPVPZTEx W1JCUS1BCDOBLDIXXcnlVZ hFXHBhciAgICAgICAgQVJU DXVUDGDBKZTMSsLIJ1SSNV SMCWUOEGqMJEwCGHBLS3Mq PV5SMRJYLXZLEN4WEWVbni xmczIyXHBhclxmMFxmczIw IEIuIExFRlQgVEhJUkQgVE 5MVHNYCDDVIRSHZH4XDzhp YXJcflx+TT8sYW9vTSDQAY PyD9FLUX8ENRRUWJIKN6hy EZWiGUDdZXBjSPzDP7cQZW jTDHuIJemVGI6MRGuCGRhm IAZHUINHUUDCW9OQN7WoTv 6UEGIHDE8FOPIhpic+XH5c flx+IE1uK88PWVVDFJRDFX YnUmXWWXTQXG5FBO7KCfvU ViIsYk4KNBAYZKDMQZChIM GbjhDoRSMlUV9vJPYeXENN UEFSQVRFIFVOREVTSUdOQV LAWOOWKvLYHFISZQZkL3Zj NEHZMqGzQ1lMYnGRT7ZTAI NFK9PUS97MKVxVASuUJpAD SEVccGFyICAgICAgICBBUl YRD3NCBEDzN3PAZkSNDXAy JPJPGL5UW7OBZOQHFRYFTx UXMuIEOW6MXHBKB99smPEj XHBhcmRcZjBcZnMyMlxwYX JcZjFccGFyfXtccnRmMVxz z2JfO9DpWjFxEEtuzjFaIG BlSkmxuanoMVTlDRK2huIo RBRaFNjaFBAyURcrWi0wwV DmsKomMcNyJYFov4izojYD HFlwVcScM045RQMnJYirc2 tyw2QqDCYrpXRkc9C9IVQD vkhnvYp5kOyaC27vk3Z9Bo kxB9zlOPZlLALzI0VnXN6h MKNtTpi6GMB2HGH3DWXiYG VmI3TvSZ5uXOKwbDXcXIm0 n4obxLhpZOFbXRP0x2tyEO ayevS8VB3sbo4seBk4c9py czEgRGVmYXVsdCBQYXJhZ3 CvePywCo0mpCn8mJeeYibf EVE4Vuu8OZ8wud98ogs7aS dvRCCfawbuMfU1KHhrKNAm jnlcZRc4QOpiTPZtgUF6KS RcgFFpU7RiIRRrXE2kugv4 EWB5QAxvUCIuWpU8DKKadG DqYLDghNkbNWgmd980BVP3 OnTtDY2rB2Sav7V5jL0vdE OpJVIddOUiOeHzRFObdp0n uQOlKBwmx5IcV28dgJO6GO wva2wgEQ9tExZ6vnVtWPfj u2hvgO5dClD5CCufBA4stg 15AFXcOYZ2pd0beAUzrOda fyNprLSqGUdnF0WlPMRdx2 63PFRfB2GfTMWgi8A9xjMt XfUuWWGoeLZ0taG2BPHmUF d6nWDilaP4weEtnOZjO2gd cJ0jTRGaMP8ssvqbg8pfUL reRVphQTLwtYZ6oaN2EXVz kVRtH5XlhJ9sRRNbOMwdZO Yrawb1OkJaPz3rsCDtzUnn MFxzYmtwYWdlXHBnbmNvbn RccGduZGVjXHBsYWluXHBs YWluXGYwXGZzMjRccGFyZF dca5YhclUunIooTJFiVEk9 ncGbkmwnpOe5mPRsmIabUX DgiUqteT7jCiTyGiBgEQhw XJ8oFOMqK9hjwHHzZOLgOE MwY7mwFlJrzG9plNfgAOrr ZjJcZnMyMFxsdHJjaFxwYX IgSSBoYXZlIHBlcnNvbmFs tWygcyB3pCC8EQEvQZmqWA LrPUTgwXYonr7mzMbaYWDo GG3iOANbijUoTUxznTpdAV vxDLV4VJAhmVMqhFNbaJRh ZSBieSByZXNpZGVudHMsIG TqlTvyf7Nte3JzbSP5zD6z c9bfz1BgPRTpuCU9CJ17nm Z6dU0fFONiYV1fNEXlOT8p uYLusTZcLDZtt03mbCzflg ByZXBvcnQuXHBsYWluXGYx XGZzMjBcbGFuZzEwMzNcaG ljaFxmMVxkYmNoXGYxXGxv S2euUpWmV7YbRMMhMrXzoK CiNWHfeftiEMPdo8HyLyEw g3raCUdcc4zjmAa0PKrwkK AykywuFXcficC1DUJiACrq XGYxXGZzMTRcbGFuZzEwMz NcaGljaFxmMVxkYmNoXGYx SHwrC6lzXxSmH2JyAQQkBB OfnPJeY1olGRP7pI2sg4uy s3UgvLSbPoVff2loqcMwDX ElqLBiykCzkDArEDIbp7Qp UONjLTDzIQYUBa5DCFIhdY MnA3r3wEZERT2vrDLmKEYt ODCuD2XzUvDNvwJan9B7BG ZsjPUmEZOZLIAubXNkY3r7 yKffZTnlNgg3RjUhyVkofY 8tOyZgKfZlHLftUO5jGJCb A8zuiKScOTAmKDGzZ1yvIh ZuwQ5jyXcdAAdbKsDzFiOz JYouaSVagEdaBEP0xE== Clinical Information Burn [T30.0] (test code = 7080339040) Gross Description (test s1hsaOKwXIHrjDQFBBKhSl code = [id number]) vaxkEaAWUzbYUvY1Ygzjpd AWivWW7oJM9qqHhoaUPhkL GyFF5ZUOOyPsDoOVMyzLFx otMeGeZoLVCfxBAqdMM4RU QdCF5nepnfAUzuDQfiIAVs jzX6JQLwyBEbS2PmMNErJA 9lqghaQES3NGgrjX4pllQG TioaXd4ylBKilBoyPoMwOp NoYXJzZXQwXGZuaWwgQXJp NCh0cZ0YWnkfOUM9BNKQHo ckZWYhCQ1Vb6hiYUGgcCDd HCX6LDvpqCCeBLRhKHQdGW u6XURvZDvduXDpLJ5arVox JnrbxRnjv4BjzHJtJAogYZ CwXFLvSHrwRYCuMI9XKdDr KFmuDWXpYnthOPy6NDa8EB 2EMoHyDQUrPHF9FNd3ARRl GLq2XZlgKA9WDLMuCAg0NW NbBMRsFJI9OHVtPEf6XYFs XFxmIEFyaWFsIFxcZnMgMT SjZZwhtWBlFN2aeXkcfXPo blxmczIwXHBhciANClxwbG FpblxlcGljTmVzdERvYzEg DQpcbHRycGFyXGxpbjBccm luMCANClxsdHJjaFxmczIy IFNwZWNpbWVuIEEgaXMgcm SxSEk5MWRkChWuq3ptoZId FMvvXMAub6i9nYV7cTNedC X3vRWsiLgrArNdLM7weQQg TFCAOB43kNYmzfRpRZNmLA Q8YZXjp3IxETDadOY9mFQq uEjqeRifBgOfC0Q9NNOpIC Api22ooMZ8wxGzNbCbAWIb qr3zkrO4JH3cxYyyZhVlsl wtDlO8l4DfGGGeFFDkhHLh tfXvYT9kcPzbQfcjXJ6xOT EuNSBjbSBpbiBkaWFtZXRl glavg2apC8svtODeVEVolx 16R5nphhXtFZDkhtJrnKGk W8hgQBFrJM5rESA6SFHqVZ BnxPdoXIBhc7ruoQFxRRIf LAqundiqRBcpYv1jUK9sKU YlCUYfc3Q6VNHlb8K4DHUh bzFhf5wkgzDvdyQpP7OwJ3 Rivc96knYfvrAbf2wpzWkq nT8pYTZtTGTtUPWcVOOyRA InN0Nyg08fgUHsF7cyZnCc W0EatOukrhzaTsFlWAQsPM jlAYmbkJ8lbjyvH7hzUMI8 cCVfhWZhZDSghzTtScK9xW UgZGlzdGFsIGFuZCBtaWRk oLHzhZxbjWAhxM1laFOrHE 3GTWLzuqTZZcBqv13qgI5h xLgrLIDuhoYnbT5caeQgbx UgdHdvIHVuZGVzaWduYXRl VLPcs59pNNNcQYamLY10hw 4nU60uCPAiDNwnJV69XSwb anCyCLLabkUtuMQ0CM4cr7 zabKStRRN0pZJ8tTKyEVQ6 bzYfQ3HmKGNfQlZdjYJdyr BkaWFtZXRlciBieSAwLjYg H29gxR6fhYKwW6LfOMMsiI Zma1MvRENtaMG8ZUQyvfCp xVBsABQbJLKeyXBpn3w4NU DlsdDazlUvT7PsHMZrYg6e ISOuLCMnjS8yLIhhp8EwFG QhXHDlTBOiibUqTLFyk21s TUWlTHrjJY07MGcxkHgsDX Bsv43kSXReBTLfcn31nZo6 AJZjmcJgG1TgJPKgl6UcUy YrUBLpYS5vYPPiMPopQKCq NG3tpMNuJUK4RLPeQGBknN LpovJdHH2ppUunGT8cvT1j aXRlIGFuIGlycmVndWxhci BlbmQuIFxwYXIgDQpccGFy EB3VM0Pgu6FcuLFfgVKiaL MrmT87e8vvQFSmoxYlnwKt uIWdAG3nYW9iRVUnvDScp9 LjgEU1yCMmBSVtS3Vym50x BTNbVLCinKBztNP9EZQufG 4pDRMrGYWtODPnoHqxr0xp ZyBkZWNhbGNpZmljYXRpb2 3gx2VbP5Cgg1W8zSNfJIKa CHI5TbfteY1dHWojSFGmMP rMMHY9pH6cQYHiEAH5OMas VVAhPLzURTjwWH6xMdYqJQ Bsk6ptZ3AxJuQmzDgty3Bw JOPrg0ElrJbevvDmNUUigC 6mbGNcOB3OQDUeVNA3aC6a P5u7nZTozoRyCRKmB6Afm9 8to6IltV3bXLAntIAzR1Ao HTbcrdHaamZkZY31TMDtzi FgoKUlYH6FQHSyLJK9MWUh LKL0hCQzUP2tdMD7WCTbHI wgaGVhZCwgcGVycGVuZGlj gVykpjf3ALKvR1Iua03kVC lmRK83kZWzqVaajLHzLE4H NTN9HJDjvmRvLtArO07ktb Dxs5c4wHHac62qUVEoMONe dGljdWxhciBzdXJmYWNlLC RmZBDqKT7ylCE4rVCusUfo z8MrpFhzsbZyHFInxpNzas LgnYnaTKMuIHlauGSwSS8Y YCNmLMrwVVPgiFXMNCX7SG 9vRErqfOPnquaoYRSsZ9Vz O4FfyxEtgSYhXHEqbzPas8 abHQJ7YVQriXBxpKAgTlFb BcxxHLS8VWn4BAomGBWsQ4 CmU0HtIYrfXAW2EURnSeVu XGRiICBPVlIgIiBZMzgwMD e2QqC7PMb5WQUCTeDkKlGp RYHeZQL5GdIuTIg6HYn1JQ cMXkPkXfA5XEu5LLzwQPQ3 JkA4SImwgKEfQShaHtWPrw lhbCBcXGZzIDEwIFxcZmwg ECoiQ72tClRvCBuoETVmCH xfcErrvN6zOJHlA27dc6UJ w8UsSY3IMNt4jbTsbenaiD 4zBSAljiQzGSevxFSbP1ha QeBvLfNBhACbfG6aifOSTE ucNDVrH3YcliRgSKKyDNDq IGxhYmVsbGVkIHdpdGggdG ylQLCubYogffHvU5I0omWl GH6aIDKFFEGwlI6qDPXbIC NtbGUgsIJfu817AOZslUNh EEOaOXAGM19sq9M8EY2sQ8 K0ORdYINOpglFpB59kl4ey rRCku9YoNSBxjtW1TXBhRN IbHH5etoPqZAwqWQZlYVXn azqcjO1jQFwwIvFmT71epR 7ufMZdQ8LmISK6XNTcRB4f TnLtJ56ufY3tEJwwzLW6EU IpIHdoaWNoIGhhcyBhbiBp aeKwT9VlYPVxDn7yZBPgLC DmlL0hiZWhflDhY9TwGACe vAL3dODknORnyVvoTAawmJ tsgDYrA1KafEOpm58hIfGx HKcsQLNnCnGsuYgjp8WgRH mkNSfuqacoZR9rlVJzbTKt bI1alCfpGLLeiC4cRU8dAC ZcMwFdxOkaf0XxKMNbi8Er xCfjjgPhITHejQ7iRCAXUI S3wA0lyS1zVRKtlfKydXIr DCIbccY5EWZhnyPuUJSmn8 BaMmInzDD0TLfrVX4dSKIq ZSBhbmQgcHJveGltYWwgcG ztoGBzuE7qEXwqXGHpKIiz wVMqUO6WIMkoeyXfniH6xY ItL95zpSVtbbEiWRjzZNAo RvRxK47elkLtx5PaFp3pIK K7gGKfASMdO09zldL9EXBt sq79eId6EALzdaAiI7BpEM Jkb0FuAjSdONTySD4xTTFs RXbjKWEwHM0ksEIfGFX8DF PsEiPjvEQiasTqBI6cfPpu EGmmrfSabM9uQNAeZALdzC Yqf6MdGIipLOFdEF3njY9v aXRlIGFuIGlycmVndWxhci Oik24sLO5bnhumrlBdqD8z TEMeOgreR3veQDFaSSMxWB GfkyYeGvKwQ91gmhMzr1y9 xBIzJFPbrmIsNSnrZ78xY2 S7IOA3RG2zk5wgyXCyGFI4 oKX1xPKzVLZ6tnWvA4CkBG EuMCBjbSBpbiBkaWFtZXRl spSymWTeVdpxQ31txY1fxJ TfH7VrOY4bFTjoPIYvTLbk yGXeFO3NC7WnhAioecCvz0 JeMsBkhYBeQZ1YNuI9MIYy YUVgC8Pft1pcqs3pe4R0KD Xin4Y1XQBsZWGdU1Ktp86d jSZiU4miDKHaqlNFIpPgEl CrYWCjOBUxuhFgsCe1OOGj i63xvQQ9NIzdDBtid8FhhR krptOePwV4f9SxQBAxyzHL PfFdWTN7VoOzsaRhqI2wIE JbKLGomQQza9DpLEzpGLUh WRRuniMgbxSnI8XkOJLjoQ AaWMD8uR8zRWCdGJPckEnc YVc8QJNxlrNWLtL2FNE5Lm Qmb76eTVUjJNtmSO27TVkz jSmyG54jV6K3NDYitfCbP5 QrWTScy1KuYsTnUYolbCIn mROpUKudvEotqcc6NVUsC3 Crj67sLNwxQD66oNIgtZmh bGluZSBcbGluZSBcbGluZS EBeRyfERRJS7qnkHYsKTmc LMBLYGzST7GNNMnhjV5fZX 6XAIPxXVokRLKskPJMWED4 KX6sRRxsaHVrwfmoDGAxA7 YsF5MdnfCzmDQeKHAshiRm k9gwDEM9XRDgnNGqsJPtZj EtGszmCDG4MGtfb3ukSWH4 XHNsbXVsdDAgDQpcZnMxNn dvODDaU2IvR5CbsoI4AFp7 Embedded Images (test code = [id number]) [facility] [id number] 19:58:06 Test Item Value Reference Range Interpretation Comments Case Report (test code Surgical Pathology ? ? = [id number]) ?Case: [id number] ? Authorizing Provider: ?Eden Fuller MD ? Collected: ? 11/08/2020 0745 ?Ordering Location: ? ? [facility] OR ? Received: ?11/08/2020839 ? Department ? Pathologist: ? Kenia, ? Palawinnage, MD ?Specimens: ? A) - TOE, LEFT FOOT, 4TH DIGIT ? B) - TOE, LEFT FOOT 3RD TOE R/O OSTEO ? Final Diagnosis (test t7xexXLxGTLld1jjMXGlxY code = [id number]) FuZzEwMzNcZnRuYmpcdWMx IHtccnRmMVxlcGljOTQwMl gxdxQcUHIdkBMwZ9Gzehea QKwdPZ2tVC5tiVmzdKGbuY GzPPWrZiHyz6fje851hZXd s7bbPDFQuopjkDg9e7chZU DOKZuqWgOjW987o9spa3cj anBruVY0nWgfOERhzahhIf S3HRktPWMwbsawLYi7BEjd NBTfwOF8ZCRthVKkZ2WmLZ LsJL5mklb4HMQ4PPopLONk ZtV4KTXssXWyMOXprEsfAE uyc517LGP1BrUfCXOgdhQy yCoopC4bTmVhQvzhBDLwKs MyMCBBLiBMRUZUIEZPVVJU PHGJS4PuUSZOOOFVTTPWO7 46XHBhclx+WV1wiqa+IC0g WSZCVWOhX0SILY3DPISPYZ HWJ8krIHCkFIBaWAPlPBuJ Y8cXRDsXNSgVYxaSZP5YFT yHGNxcMJTGHMVQMIJXX9WU K9DvXz8CLMLVYY4LDUAice x+UM5zfgi+GQ6bK90FOFRC WRDCZTJxDfCGNSQIZG1BNA 1GXtrQZxAmEd8MLHQYLTYL GNCoHPAeuhFhRBZkWK5aN0 SIPWGIYJKhPK5BNTBKO56J NVVOIDDLHVxJBQ7AFyDRPi MLR41MITUJB4ufRIRHWJSe O8JYJC5EDWYFUQQHIieeVP hFXHBhciAgICAgICAgQVJU ISCPDYXFFISIPuIQR1TFRR QOLSDAPYaJSOlTTJLMZ8Lz ZA3JCTMZBRNXMK3DRTQppu xmczIyXHBhclxmMFxmczIw IEIuIExFRlQgVEhJUkQgVE 7KUNFZGYSBNEDPMQ9WLtuz YXJcflx+ID5aYE5uJRSCBA ArU4KSTE9MXRQKYNZKM8bk RHMuMTTjVSZhQZoQO1iJMW jWGNfMPgpTXP4ONHpQMWec AAWPKDNRPGOGE8ZLF3LyWl 2QCBLDAX3INDUxohr+XH5c flx+FQ4pP65LQIKAZCKLDQ TxFtADGGSNQP1KDA2VMrpU OyQuOk3RXJVZWISJISKjJN LkmpRzOOFaQA2lHPJkVMYC UEFSQVRFIFVOREVTSUdOQV QIHABIBuBNILPCDGGwF4Zw RAVEIpUmC5lDMoAAB3IJFR KEG0YIP32PNJqRMKcEFzQU SEVccGFyICAgICAgICBBUl EGW0BZJVAsQ0EVOkUXWWLn BTSOHV1AW5ZFKILILTYBEb DGFaKJJM1YDNNKS86jvJPq XHBhcmRcZjBcZnMyMlxwYX JcZjFccGFyfXtccnRmMVxz m8NtS4TvAdXdUKerzoHnDH CmUzizcrimCXIiADN4zrKd TANxLBpyGTWoWLirZn1ggQ IxyZzaVsMcLMGaq2uqhoKE YHyfPeSzV850FBEvPRwql8 npy3StJTJvoUFgz9F9YCEH ygxzgPc7tLvuP90ak4U9Ya igX6aaLRWoYILpX7HhLB1f VFKxQbn3AAL3DSK0FOKkTZ WsY6TeGT5wLHZneFPvUMc1 p1xawKbtQXLfXRI9b9jlGX toybZ5LL4tdt2zaHl7i1sw czEgRGVmYXVsdCBQYXJhZ3 TkxFunZd5tvNe3oJebJfjc ETU0Zzu8AU7lwu20twr4tW bdGDRikefkFqI9UEtwVMLn yfwxXDv6YLaiEYJjhFT1XM YenEBtL5BrLBGxKQ5adgi2 NJG4SWatDMKbNvM0EJOchS KyXJTipIawFCsih230VLW8 OnQvTZ2hB5Pgu6J0yQ2qlC HyXDShzOShLoPoGIVbnk8p hGLeTEhex9FbO61pyMU1FC mke3xySR7lFyO5opElELpv j5gcoR1pJfQ3MAylFD5eir 57MQHcXSC5no8xnEDstSmo kuActZAwCElmO2QfUNFyy3 47EKLoL6DbCQGrz2F1wsWb KwSjKWDvjAO6pyR2PALyZN g6aWRjonN6cjHyjXKfA2xq zX3jSYEuKF5dtvgvn7gxTV kjBCiyCYLujDF0ulQ8ORWt aFJcZ6ZfoD6nPUDtAUlpYT Lbqub4LyIyGh1geDBsrTxp MFxzYmtwYWdlXHBnbmNvbn RccGduZGVjXHBsYWluXHBs YWluXGYwXGZzMjRccGFyZF gpr1DohcPqxTpdKVEdDNm8 rcThmgdboVs6wOTwvLrdUX ZtqTlztV7qDbDbDwLyLNhh DO0rZVDuB3womVDyEHTzHK XsL2woTlGilE5vnLpkFTut ZjJcZnMyMFxsdHJjaFxwYX IgSSBoYXZlIHBlcnNvbmFs cYczqbQ8eEL8CIJwYTrmNN FiREYccWYijk9xmXizYPXe UN4vFLIdmaWsYKpyeVnyRW iiPKY2CRQrjFZdwJCxdXTb ZSBieSByZXNpZGVudHMsIG UoaBayk0Sfh6FurAF6sA1r c9nzz6YwRUBwrRI6UP44tx M0nX8iRUHaKH7xWTQaMQ2n gNNhvPCdPUDia15moGmtxr ByZXBvcnQuXHBsYWluXGYx XGZzMjBcbGFuZzEwMzNcaG ljaFxmMVxkYmNoXGYxXGxv D5gjJpSnY3BeQNAuFgPoyI QgNQSwttsiDXIoh0KhPrEv d3ugTKjkc3tviVu8CVrjuH LtwtkyLZpuktC2TOFgTDti XGYxXGZzMTRcbGFuZzEwMz NcaGljaFxmMVxkYmNoXGYx XBajR2yfEpNoI8XqZHUkXG SyzDNtN3akWUZ9pA3uc6ip k9PskFWdHlXeh5ftjoQqEF QveLDaqnSqzBZdANSgu6Ai NVGsTAGeTQKIIc3PIAOmoL JjH7z5oCCSNM7xfOHqOOZb TGZcR4WgTlQXoxUfe1F5IU DfeFXgUPSMEEKpiYXnG0j6 fNwdOXftAyj0RbStqStxcP 7vUaVfWlYvGRvkKD9iVMHf O3wxeIDgSNXzUKYmH0pgFn FseO2jtAcnJBkfNvPzQsYc GIpjpRImtMgyRFH5hN== Clinical Information Burn [T30.0] (test code = 7952262845) Gross Description (test p1tufRWjEAWmjHTNBIEsFn code = [id number]) knqnLiHUUreSCeP1Tkccxt UVmzDA1hBK8ajTjynYXvdM OkAX7TGSHlSuFkSQAsyHLf kgJhJsDnXJRqwGPzlNH9LJ NeMZ3svwdcXImuEXcjSCHl viY5CQCwsCUhL1JoLNXtFZ 0eeyvoNOU2KJdpyD8neeDT TaeeLz0teMIosUpaBrMuDv NoYXJzZXQwXGZuaWwgQXJp FKw9yS0COekvWUN5FWWGPn fpPZPsPN8Ze6knVQOywQQo HUC2CKxmwBWlIRZaGGMtCL o9KSBeBSzuvNXoRP2egKmf OihrnPjti1DcwTOxDDooOC UlDPHlMLmfPJCcZL0WJnQm XJdwWSIrAfsmRGf0PZq9WP 3PZcTzFHSoSMP6ZEf1BBSt XWl0UUoyPH7ZATPxPDj9LO UaOBOtTZX6MMMfOOy1WHSt XFxmIEFyaWFsIFxcZnMgMT UqXUxhoWWrVS8rnPxbdUBm blxmczIwXHBhciANClxwbG FpblxlcGljTmVzdERvYzEg DQpcbHRycGFyXGxpbjBccm luMCANClxsdHJjaFxmczIy IFNwZWNpbWVuIEEgaXMgcm KhHNw7FYWcUwJtj1idyYWt CInyHBJai2r5aKK2xHKdyK Y1oLUwaQpzDoGsIW9imGWg SMLWXK99jKNxlqFcCJQtOE O6CDYhm1YyREWfiSD7rEOu qXwlgYxnYvLiB1H3YENcPX Sva36zzVP3twXbSxWrZEEf ng9nctY0ZF4rzUahIqUdyd hyFeM8c2EqQNGzYIRwwTWj dgJyFI9ygAyhZcuhPR9bRL EuNSBjbSBpbiBkaWFtZXRl sfjhd7qxH9ocuWLrSASooy 08M7ajmjFbMDSqeaFytEKx B5qeHWHpKZ7yCDQ0NVWyBD CnkQhlVYQgg2emmDPwIQXt KArqkzafXMzxXo1aJI3yVZ FmBSXzi5Z7FPVzj6G7IUMd ykEds9baqrGnelRgY1QmT6 Qfts99jdMvqoXjc0wewWfl eC7pKCJrLDLlRYCkUOJoFC QiT3Tev56udEXiE9moJxFu N9NazBwomazgPgUsDWUwFC ziKCottE2pldgwR7egGJS7 vSTukLFoNFXavuSnDbF3dH UgZGlzdGFsIGFuZCBtaWRk iMVapFyygBIcmU9xsNWrLT 1PYKTmivJSTkVxx50ndY1y uSelUHMzhfZldL2zxmSvfu UgdHdvIHVuZGVzaWduYXRl ISQke75uEAHzEMbjOY38nc 9fT46kZTIlYClnEH13JXqa xhIrNWSwntSrkNK3HC9ra0 dkjQKrCHZ6oYU2sAToEMG0 miUhV9SbYMOpAcCesUMtyi BkaWFtZXRlciBieSAwLjYg V77vnF3tgFLxU2BtETKbuT Gkh9GbCDAueES3QOXpvaKq nJFuGUBpTPPscKCay6i8FE TefnMmkgBiM8TnQQGcEc3x OJKgYALqmY5uYFioq4MbSK LoOSLsLCOcvgPzIYWoj45c EVGpJOsrVK97CCyqbBqoOZ Sjr23yJJAtOARzhh56sGg6 AYEohdJjQ5MuPAAar2IiKf AfVLXlWM0gQBJzURnzZPGq NW5mrIPhDFW8PHPhHBBepF TpjqGpPK5aaZtmCL5kbB9b aXRlIGFuIGlycmVndWxhci BlbmQuIFxwYXIgDQpccGFy OS3QX1Pfo9OjbNDuqTYnhM ZkbS03x6ibEXGecxItvcPy eHNxQF6tHO9cUPTpkMIce5 XwvYJ0cKMiKIGlL6Nqa13z JUSoCETksEDifYV5WHOvoH 3lKSRhUHFpHHPbtOhxn7xr ZyBkZWNhbGNpZmljYXRpb2 7go1DiC7Ccx3G0dXGoYMCc SQF1VkocaV3mBQcvOVPtKM lOCET8lL7cOHEzVRV4YGax MILdTDvADPukYF0cXnNgFR Krp8tyS4BfIcOeeQznn3Qw DZBjp6EpgBaziiShLLNtzB 8ywRFpDP8YQAXjTPU3xT3j Q3s7yEBrdcDoSBPtC8Bnm5 6vs7XowO0gJCApvWLrY5Fn SLbtaiSndaDdLX80RWHgvj VylEXoXK8DGGQvYIT6GOTs PLI2tXChRM4moDZ3HTMyRM wgaGVhZCwgcGVycGVuZGlj fGxayko4HLOxS2Kbe46bHX pnMW08gBNxwYnbiVTgLR0M ZIZ7LDKhrtWrGrRcU20ofz Zme4u8cSRph40pERNtZCJk dGljdWxhciBzdXJmYWNlLC ZjTLRgWA6ouPL8vOPwnPzu u4OkiKmofiZbONEauvKxvi RgsYnxXTNlPDetoAXxXJ6J JARtSOxvSOZziWZAXEB1WO 4yLRolzNUxrnjpLARhZ8Wh Y9EcwsNrfNSvSXZardNnw6 ibYSP9XLRpgTTtqIJaSrYx AzljPQN1AVy7BFgnHPSmE1 DuU8AeVKswPNY3PVJqQgQu XGRiICBPVlIgIiBZMzgwMD z2UhQ2IMy0EAYCRjPiKkIb GGZeEUS3BmYkOGh3KNw7CE tOYyWeCkI6VUa6WEjdDKN7 NpP7YWywdYXlGCsqImESzp lhbCBcXGZzIDEwIFxcZmwg ONyfO01kOsFtKUndJLVzFV xueMmfdM0vJAJnP93bp6QY w5QlXX2YPQd7ecVvhpchpS 0cAFShpcRlCBvsgAAhG5zg HoPhZwWScAMtiK1zzgXDXA xvNLTpA9AnjpXpJRMyEGAa IGxhYmVsbGVkIHdpdGggdG uwSJSxcYflooWfE1X9gmTb UX6kTMDNMUIvfM5uDBGuRH RcjSPjmVFla072XHHveWJl YKOzBAXGP01fx6R3DM1mH5 Z4THtCCCCkonIzP84cj2ig hCTbb6FrZSEwlpW4JHFpBB HuID3uqiKaXJotCZZfLBOq lohsrU3nRQhtKhExL45vjT 1tfNSoD6DeDJF2EZVpTE4s GeDvM87phP6xICxkwAZ2XL IpIHdoaWNoIGhhcyBhbiBp szHhU0UhJWGhQr5fYQCuIA IriV1trOHdhnGkH7RyNLIw jPD7mOXhxDWyiAuyBIeqzS hmrRHhL3LpcCVor94wBaUl KHixOREgFvPfnPjqs1RhWE twAQjtlferDH9jkVOicNLy oW4vfSlqPPQunP2yNC5nXL EsJmMlrRxoz3CtKMMgy8Ds gGzanaVsRHZchD5bGOXYFY Q3uA7bmM0tSUVbqyMkvWQj ATJotqU7ATAdszFjRJHfx4 RpSkTubFI3WSpxEI7pSNSf ZSBhbmQgcHJveGltYWwgcG lwdGFuzN9eQMijMTDuCFip lHYcYE9MNVbxicXcfzV4xU ThK88wkZDkheSwYOscUCRt VyQpF60xqnYpv5CePo4eER C9wBIlFMVfP11ygoF3FHEs ck26iDb3ZMHprwZsC5OcPT Cub1VtQdMaINHzPI1uDOId OHjyVIIzSX0trSErWVT0MQ GqAzPwsBXbwxHlII5kmLmy EKdgbgNlcQ6hJVSnKDYqrS Mpr6UxTQqcDEAkYX9nbG4x aXRlIGFuIGlycmVndWxhci Sie43bCM1kpnbeafJynI3y VSMmHcjmM5cmFENgPUPhOF YnpcRxOzYvZ80qrpLrv0z3 cWVdCKTjwxYpXRpuU94wL4 N9TLO7XG5pf8mubFXhENA7 dTW2fHBeIVD5ewOsS9WxKW EuMCBjbSBpbiBkaWFtZXRl mbXrvFEqWizjM85reI6oyL ChQ9KzCW3hZBhqMLMzKTee aWUfAT9BO3IawWbyoqSjc4 VtVuXgzCVwAO4ISwT1AGFp SHKxK9Cbp8yjyb9xn3V5XL Mjq3H4UFTcGOXrM1Jsi49t kQLdW9jePDEmxqZTCaDeNj ZvWSEkDPOjtqZgtBo7IWCb l78jvXG6KDieQWklx7QnpS amxiYsEjB9y8TbUGRfsaCO HxUyGZP2DsYlujDvjY0zPW WcXATfvNBit3HrDSggUHAl ARWvqtYdcuPxW6OxIBQrlR ZvVHD2lM5cPBLeBKLzxPwl QNw0YZZltyQEVmT1KNK6Xe Fpb81fXTNoRUnaRK20GMlc hSygF82zT9O5CMYbowPxW0 QmXMTre3CmKfVcQXgtwAEa zAUfXVgeyXcbglx5JTZaO7 Fna74mUEruIY32zAYbnOuz bGluZSBcbGluZSBcbGluZS TEkLmgFMNBW9cysGWpNEgm CYEPZDjKW4LDUPbakK5iRV 1CELHvXWyiMRTewRNWJDF9 HB9nSCygiBDbaonmNUVaT8 OjI5UqldKwjWWqSZHmanFz q1mrHVP2AHYdzSVtmDMcRk PoAlpdPHX2URfoy6fsLPZ5 XHNsbXVsdDAgDQpcZnMxNn exYCMaC2BjL5VkswJ9CRu2 Embedded Images (test code = [id number]) [facility] [id number] 19:58:06 Test Item Value Reference Range Interpretation Comments Case Report (test code Surgical Pathology ? ? = [id number]) ?Case: [id number] ? Authorizing Provider: ?Eden Fuller MD ? Collected: ? 11/08/2020 0745 ?Ordering Location: ? ? [facility] OR ? Received: ?11/08/2020 0840 ? Department ? Pathologist: ? Muthukumarana, ? Sona, MD ?Specimens: ? A) - TOE, LEFT FOOT, 4TH DIGIT ? B) - TOE, LEFT FOOT 3RD TOE R/O OSTEO ? Final Diagnosis (test q9ophRYzRUIsw9ojHEUldB code = [id number]) FuZzEwMzNcZnRuYmpcdWMx IHtccnRmMVxlcGljOTQwMl mvvmIdXQHjnTLnU0Ojmbtv ZAjjDP6dVT2goCwgtGSjcV XbIBBsDoZoi0ths350rDFr h5etERFUcyancLx7u7msEE AEYXkfRbDqW976i6ota8um pcYvzJW6dOxiZNJspxujXo U2VDueCSOpstagVWt8IIku MWCigIL3SEEaqRVsT6RqQZ MwJP8xmxg2OMI5DJzsZNWh ByL2UJNsvWCnUZAyuRgtGI evc350NUH5ErYsOZXfgxPe ePrfeY9gKqLjXhliHQBiYo MyMCBBLiBMRUZUIEZPVVJU SSGVZ1ApKYFMIMHVWRWHS3 46XHBhclx+DG3wszc+IC0g PFWKAAUlK5RRJN5GDNMEYR SEY2lgMEYsDHPhIWGbANiF K4iVQTiMZOoDJsdAES9OJA rHHSalYVEAXWEYXQQHJ6JX C2UtOf2SXHUJLM7ZYRHkpi x+FS7dqts+XP4rQ91XNMNX GYUUGTFmXrXHGPGQUH6VBC 7DKzaJKhXbZw0HBRVJQNIM IZHqEAXbmbLnKVSyCM5gQ5 YHAZKGYIFnOZ5HNAICK99I CIAJROFFYDnVAZ6KDiCSAi AXD99JZLAWC9etFITGGUBl G9WJYL7QVOSPYSGAZamxXC hFXHBhciAgICAgICAgQVJU RGSTGCEEADKMXhLHS5GFKK WSOFDDSGcOZErIHAFXW4Rn CA1MCHDMCLCRAJ8ZONUcbd xmczIyXHBhclxmMFxmczIw IEIuIExFRlQgVEhJUkQgVE 2SPCZZFHODMSFGUP6KCufo YXJcflx+LD5oBP0xLYBMSC SwV3RXTV6BFERUJHXID3dh VQMfFAQcQRCmCUvNQ2dKZR jKVNdKTwiJFB4TCJkCONoe MPAXZVHDVKNKP3MGU2YlWj 3GHQCJVR3QGIVjlae+XH5c flx+IO7jQ32KUXHGZKIEYV UzHlLEJAOEMC7TSY4JMmrU IoNeNq8MEICKFPXDLRIiJQ CpdxNdGOYyCF8aINZiSIWG UEFSQVRFIFVOREVTSUdOQV SUYZLIBoHTGNNOYWWpT1Np MAOFPtSnQ9gYDlMBO5VTTY THC5RBD93LULyAAPeDIlNA SEVccGFyICAgICAgICBBUl QEA5YKDCIjU9DCJeZYMKZu XZSYQS8UY5VUZMLVXHXRFa APVfPPCU0DIYAZA05wpBCc XHBhcmRcZjBcZnMyMlxwYX JcZjFccGFyfXtccnRmMVxz f2UuH0NtPxKmRUxjqhQbDI VvSlgdvgkgGDFwWUO0ddGg WGJvATdvNYLkMVngUl7oyX JquKxrCaEgIQZwq7lxqaKW YSajUiXlE882RLAyAJagr8 rdw9YbZUPesOEtw9V9BQVS okzukTv8fEzpW08hb4N9Kt gpZ6toMOFmFLZrK9IdKH3t JMTiHzz3EDK1JNV0YISwRC TyP3XkXF3kFGDocRTsJSe0 x5lluStoJASnUYI9m5ddQV xvpkO9SI0zwu6fpNq6s5le czEgRGVmYXVsdCBQYXJhZ3 BmfUdwJt9brBt7zLckJfyc WUO6Rmr7QS4bwl67edu6qR chIZUjxwpzQvZ1DFeeURJs zgzsDDt2ZXqbRCDfbDN1PX OwdCVvM2FiZMOmGY5tjnn3 LUB6GSgjOBRaAmO0HEMmzU YyLYHhxXxbOUtud674JRN0 MdAzOM4eP7Vep5M6cC3ayN CgWXIfqHMtFiPlPYUhed3x sERqVVqtt8LvA82svXM8GK oko1tySM8oDdV8yiQfMVkp r0wheZ1sYbO9LXdcHY5jzl 09OSYxOAT1gz6awCEajIvn nuBmoHYwSDljH7NeZSWzv6 57KWRyO7FmHIPmw4Q2ieYh BtEoXVOscZN8mbC8WNYsBC h0wTCesoW3kiEuvHZmO2wn rX0kNPRgGL0ibiakm6noCA ikBNbrZOBcuSG8veJ8YBTi jIJnW7HhfP7dPDQpIDkmFL Eemsq0IhZkYs1dhFQxlJyi MFxzYmtwYWdlXHBnbmNvbn RccGduZGVjXHBsYWluXHBs YWluXGYwXGZzMjRccGFyZF bua5DvgyWdrOmjIFMaLWq6 xtRdpgrmxRy5aHMjwAawKG GorZmvmW5yIcYdQhJcFCju KL4rDRJuV1xwlFMdTVCqXL SjR1lyXlAtiQ2zqYtsCRcg ZjJcZnMyMFxsdHJjaFxwYX IgSSBoYXZlIHBlcnNvbmFs oCcmomZ7iAJ8LSNgAQwjKK KgDVMhtSMxqq0gaPstMMGn IT9pVPKurgSgORnkvNcgSF vjEAZ4AHErnLQvsHPrbJGu ZSBieSByZXNpZGVudHMsIG ViaEutc7Msx9DkhZV1iL0d p8jyp8HkDFYhzFI3TO89al Q4hZ8yUSWeZN6mBKTbMG4h pPEgwOXmBTDfs06zxDhmff ByZXBvcnQuXHBsYWluXGYx XGZzMjBcbGFuZzEwMzNcaG ljaFxmMVxkYmNoXGYxXGxv G9esYhGoE8BjBHUpWrWbiF MsKIMcvskyQFGkh9BwRnRs t7ptYVotw8rtlFs8QYynaW MczxplOFvrrrA0MDJeUQdt XGYxXGZzMTRcbGFuZzEwMz NcaGljaFxmMVxkYmNoXGYx NIdzD5imEiGbK0BjPRNbMZ VxvZKhU8cxZEY7sI6qv2fd m7AbcBPhRjSwu1nqalHgEU QzoRCukgAjyTVfIPVex2Av FKWjEUScLVQTDr1MBHIvgO TiT0r3dJONXB1fxUUlQZKk MNDoO4KsPoPNghAqf8G8JC MlbGKdMZGUMSCpqRRjF4p0 gUxoALxwCdl8WtUoyXjnzG 9wIbWcJiAvBPpaGD9yCVSp B0vjtFYgQBQgXIKeR6izKl FioI9khZonDQzyOdZdFiSl BViyqAXwyXoaVJF0eI== Clinical Information Burn [T30.0] (test code = [id number]) Gross Description (test m4delQMaYVPqrAAEQNDbVm code = [id number]) pobmOcHOEvmDTsZ5Rnctym SImtJN4zFZ9sdRadeHTglJ VyWY5MCFFdBmDoRORrgPLe ipRrUhBoEFQlaHObsCB3TI EwQS1cettoBOuwNPxhGLTa rlA8VJDjuYDyB2HrXRViCQ 8xnvhmFTL5YUalfM1uouIQ MkshHl7foBRqaOusFaVnVh NoYXJzZXQwXGZuaWwgQXJp YSy5wU0HCvkwPYB7GSJGUm agQDXoKH0Na5icAJVasOFp UJQ0FIrkvATdUCLrVWBnVS w8JQHbDEvufTOoZD0jnWso NvzzdDdva8VhvECrLAsnSA DqJSLeKYenHRCkGJ5DDgWd BLiwMVXqZhvpQTw5AWn2FD 7KMgPtNRDmAHW7CLi5TEYt FTz7SEgxXD0IYSPmEHe7VO ObPVXcASM1NRHuHCh2XYJc XFxmIEFyaWFsIFxcZnMgMT FuVKvmwEFnTD6rbVzatCCk blxmczIwXHBhciANClxwbG FpblxlcGljTmVzdERvYzEg DQpcbHRycGFyXGxpbjBccm luMCANClxsdHJjaFxmczIy IFNwZWNpbWVuIEEgaXMgcm IeCSu1BYKvSpNor1kmzUEu AInpXNXax4m0eFY1pLCmiI U5yQQzrOqsPmOcAJ6wfKCx UZYHBE60jWYywsGhBYXmYM V9EBOje4BnAQCvmST0mOYq lAplsTtiMpMsW5M0QIWlMC Dyc13ooSH1cpPiRcPoGKRo up5ehlT0HK7qcSyfPqZxkd aaGjK1m3NkJEFoKDDdnJTp neNnZK7ddSuvBwchID4iZW EuNSBjbSBpbiBkaWFtZXRl nlaqm9wiD3tapFAvUUVljd 64O5mhvcJoDIBfbxKreRQq W0fcJAVeOV5mXEX3TCZfFE NrnOtrKOBfa2tpcMVgIWTs CCqszvbmDKpyFz8tFT5rTG CaIEIal4D5YHEps5J5YPBo qpPkv6zonmKrgeFyR2EoH6 Fgwg68uvHpjzPmq4aetOkn bU5rYRJuOGXvZNIdUECxDH XpF7Wcc76twBDtZ7niYpSt W4WhxJxlxgkeSaTnSEVrZJ jpPYlyvL8zazqsS4azXEW4 qTPxlIWqEDVvssAnQdL2dL UgZGlzdGFsIGFuZCBtaWRk aRGfwYgwhUSitS1fuUUmCP 1RVNTvheDTFpXhc09fhN3t aMonYPSrytSapH0qliSqca UgdHdvIHVuZGVzaWduYXRl XUQmq89kMSZvHCijTS24lq 1kW20zXMVmTZblJG28WWhg gjWkARYbvaIljIC0EO1ch6 uvmKImAGF5kTT6fTQjWCW6 ynDuM4XmNDGpTfYfkQRrzv BkaWFtZXRlciBieSAwLjYg E99ptQ5yzUWsG5IdDBQtfY Lsu6SmRUTjuHV5QYGmseWt fSWeZYZvZRAszOJwf4l7WE FnvpKcfdRuW9PqQPFnPl0u BQKyRIUqvL5kRCqcn5BpMA FrTBQqNCAzviPyPHQyu18k QTVkKKqfOI12HXiatJdlSR Jst39sAXCbNLYaek80uVd1 WUClcmIyE9FpBYKhs5VkQx BtKLUiFU8hSLJvPFjlEGHb XF8moHSwRWW7IWKgHHHfbT SvlzCrUR3ciGpsMD2ldO7z aXRlIGFuIGlycmVndWxhci BlbmQuIFxwYXIgDQpccGFy BS3KA8Wye2XlhWTnjGOhcN PfnC25q5uxVUKxgrNtybFd uPCiRB2bGR0kUHVxxAZus5 NgnRF8zVRbMWZuA5Mxg63p ITJlTAVoxIGpzOT6EBTobV 2oCTLsQBAiHCJkkTgpa3ci ZyBkZWNhbGNpZmljYXRpb2 2cw7YmP7Bpw4V3jIGcXAOx MDR4GodwjQ8yJFmjCRKbKG zGVHC2tN4rGJXeLJW2FPvs QCFsWUeABVdlMO9xEdNoVE Kkh6yoQ9HvJhTioJudg8Px AIRfy1MjcIklfcPlOJEmmJ 5eeZByBG7LGOXcKKU0oL3n Y3l3uUYnioVxRQHjG3Eqs9 9jm5MxrL1mEQXlrKGrV2Jr TCfqnqVxohHlTK90PWMwuu YhtVIkRK0PBOLfCBO3ITDq RDK8hHAiYW3guXK6KXPjXF wgaGVhZCwgcGVycGVuZGlj jSsrwdk3SXGbP7Twg07rUC faCB41oDIkjOsnaDAkAI9H KCV6IPPvtdKfGbFdF93kdr Bcw4y6cMUip68pYFRuBBQd dGljdWxhciBzdXJmYWNlLC TmIXXgYI3vmZR4hICiqKyn e5HhwGqkzoYgSGOgmzOwum BmvCaeHKRjEYwklEGrNN5O KQGhAFcjIWLxjAWHIFQ1DD 6hQCxjpGVrhnjeNJOqH9Dz F4HlwvAarELhAFSexiKnj7 nlYNF9MHCxiWAtyILyUwHo XkdqVZE5JEw1DUkwCMKtF9 JmS0TrAUxuTLF2JBWbJyRo XGRiICBPVlIgIiBZMzgwMD a8YbD0PSl5NLOEXsYzMxLj OXGjCLN7YtOnZAr7KVa4RU xSLqNyMbR4VTb2XImyOQN8 CqU8ZDgcvYReTMcwOoGDnp lhbCBcXGZzIDEwIFxcZmwg MWyrL28jGmIfGVzoGEGwRP yecQwakK1pQJIpG96pt6NQ b1OyHK1CVMk4luCpkmmpeV 2uSVSaydCuOWznsYRxB2oz JhRdXlCRvLLlcH9jqwLJKU upZFBiE1FgqtDsVVDnHQQj IGxhYmVsbGVkIHdpdGggdG zuUHNxzKrfmsBoN4T7cjMl GH7dRCVUSPHtcK9vRWAuWX NddURwsCMmu021SHQagZJo EFItEYWKP43tw7S5WE5vH2 Z7XHmHNMTmeiCsI21ah6nl vZNsr7SkOQAylmP8MZRoWF NwXG7yfbGyLEfvTNHqDMAn khbydF7wCNphSnRyI91fpN 6vnZXcS6ZbITJ5KVUcWW7i MoLiR65dqA3sTStdrXP6CZ IpIHdoaWNoIGhhcyBhbiBp zqOxV6AlSTQwKc2jCQSlQC OekL7kaZAfvkSrL8UpYPNd rKU9kEPuyMQuuKtbOQnqeK zoyRCxC6ZkxSNpv13jJhUg RApzKFTzGuSsbArjt6GnND lgZDobyuvuEY9kbEPzjYZd rB9iaIguWIBqbK1tPS6uFB RuVuEtnEzlx5FnEEHgu5Em uFwgbkCkNJQomB5uWKMECQ S6vL0wkO4dOQZdcsKylNYb LYQyosG2WIKqilVdFTYef4 FmYmJnxHR9GPusUP4dCLEi ZSBhbmQgcHJveGltYWwgcG uamXXpjV4uEAlzGWLgOVys aLBrMN2ZJRsgcaHdpfE5xW TcH22xtVZqofKgDUwcCZFt IdDfD56qxtCba1NkJc8jQA G6lYTuJAQyR23chzZ8BCCw lb77mLp3ZHHzajGkK2ToXW Srn5YuQrFtUWHcOY9fOWId YNoqVWCsEQ5rsEHiROB7KF VnXoMyeSSoiuVlEJ8oqBnu KImbwpHpbB3vALIyAOArrP Gzc5WnHGvkGSPdYS1laV7f aXRlIGFuIGlycmVndWxhci Pxv50eZV1qcdaiucMdjF2p MPZxVocrC7zuGEMiTWFjRB JgygAcOaQhJ70xxqSpz2q0 xODeWZXejnHwDCxvD76rK6 X7RXW0KB4qq8bkdROfTCH8 oIF0uENoFTI9ytOjA8BgYQ EuMCBjbSBpbiBkaWFtZXRl kbGgcZFwZcasE22wgW9ijO NlE2DtQO4mPBxrDZYrZZsq aCAzOS4CW7NwfHrdtaBrk0 GdJiVyiXKjHR9SEfP9PPVr GIRjC4Oqr1eedb4sh3N4EC Ogq4H8QZUiWNYyO2Uuw26g gMWvN3xeKVFdwcTJGaSyJs LbUPTjWREnvvXgxEq6JMXy k71peDB6BGbmVHyra8FqzE vhyjIkOjN4d9NiZCYeccWK NmCdGBL9CdKcmpGfhR3oQB BlYGSzpKDji0OdLWcrZJLw MTNoiqIwzfPlF1YoXHRlvW AvXUB7aE2sLCOjVOLscRcf JUz4PQTbhmWMNgZ0NSI9Ap Qha02fZOVmRXauQR78FCft bUukY84vT2K7TDDfkdWzM0 WgCWKos8OdHxHaYNhvvVUd nROiRCcnmUoffil5CWYmN7 Unq96pQHcsWA77oURsyAkw bGluZSBcbGluZSBcbGluZS KMuZuxVKTRS1uvkKXwLDmm ZTFWWKfFW2OKCMgjgC2xYN 0IGGClLDkgIVMfgDGDEXF8 YZ0mMCpvrWMauyzcBMRtZ1 FjM2QirqMsyAXeEDZxuvUf g0itEMX2NJYggCCnkTJmEj TtGvfcWNG5YTgmg5vbBCY8 XHNsbXVsdDAgDQpcZnMxNn niHPHxB4NmQ3YhojO0EWx5 Embedded Images (test code = 8624659802) [facility] GLUCOSE (AUTOMATED)2020-11-12 17:11:40 Test Item Value Reference Range Interpretation Comments POCT GLU (test code = 3334583585) 153 mg/dL 70-110 H Lab Interpretation (test code = Abnormal 63843-7) [facility] GLUCOSE (AUTOMATED)2020-11-12 17:11:40 Test Item Value Reference Range Interpretation Comments POCT GLU (test code = 2146063970) 153 mg/dL 70-110 H Lab Interpretation (test code = Abnormal 00405-1) [facility] GLUCOSE (AUTOMATED)2020-11-12 17:11:40 Test Item Value Reference Range Interpretation Comments POCT GLU (test code = 9860383768) 153 mg/dL 70-110 H Lab Interpretation (test code = Abnormal 93825-7) [facility] GLUCOSE (AUTOMATED)2020-11-12 17:11:40 Test Item Value Reference Range Interpretation Comments POCT GLU (test code = 9252564536) 153 mg/dL 70-110 H Lab Interpretation (test code = Abnormal 00620-2) [facility] GLUCOSE (AUTOMATED)2020-11-12 13:50:01 Test Item Value Reference Range Interpretation Comments POCT GLU (test code = 2591331374) 162 mg/dL 70-110 H Lab Interpretation (test code = Abnormal 39796-3) [facility] GLUCOSE (AUTOMATED)2020-11-12 13:50:01 Test Item Value Reference Range Interpretation Comments POCT GLU (test code = 0102125467) 162 mg/dL 70-110 H Lab Interpretation (test code = Abnormal 83301-8) [facility] GLUCOSE (AUTOMATED)2020-11-12 13:50:01 Test Item Value Reference Range Interpretation Comments POCT GLU (test code = 2120422047) 162 mg/dL 70-110 H Lab Interpretation (test code = Abnormal 06442-4) [facility] GLUCOSE (AUTOMATED)2020-11-12 13:50:01 Test Item Value Reference Range Interpretation Comments POCT GLU (test code = 5383359150) 162 mg/dL 70-110 H Lab Interpretation (test code = Abnormal 58235-8) [facility] METABOLIC PANEL (NA, K, CL, CO2, GLUCOSE, BUN, CREATININE, CA)2020-11-12 10:43:10 Test Item Value Reference Range Interpretation Comments NA (test code = 131 mmol/L 135-145 L 9138740110) K (test code = 4.5 mmol/L 3.5-5.0 1870568114) CL (test code = 97 mmol/L 98-108 L 3923413847) CO2 TOTAL (test code = 30 mmol/L 23-31 4993673316) AGAP (test code = 2-16 8417617240) BUN (test code = 11 mg/dL 7-23 3407391762) GLUCOSE (test code = 169 mg/dL 70-110 H 4412966726) CREATININE (test code = 0.49 mg/dL 0.60-1.25 L 3935193871) CALCIUM (test code = 8.1 mg/dL 8.6-10.6 L 0054899460) eGFR (test code = mL/min/1.73m2 6001944113) PATTI (test code = PATTI) Association of Glomerular Filtration Rate (GFR) and Staging of Kidney Disease* + --+ --+ ------+| GFR (mL/min/1.73 m2) ?| With Kidney Damage ?| ?Without Kidney Damage+ --------+ --------+ +| ?>90 ?| ?Stage one ?| ? Normal ?+ ---+ ---+ -------+| ?60-89 ?| ?Stage two ?| ? Decreased GFR ? + --+ --+ ------+| ?30-59 ?| ?Stage three ?| ? Stage three ? + --+ --+ ------+| ?15-29 ?| ?Stage four ? | ? Stage four ?+ ---+ ---+ -------+| ?<15 (or dialysis) ? ?| ?Stage five ? | ? Stage five ?+ ---+ ---+ -------+ *Each stage assumes the associated GFR level has been in effect for at least three months. ?Stages 1 to 5, with or without kidney disease, indicate chronic kidney disease. Notes: Determination of stages one and two (with eGFR >59mL/min/1.73 m2) requires estimation of kidney damage for at least three months as defined by structural or functional abnormalities of the kidney, manifested by either:Pathological abnormalities or Markers of kidney damage (including abnormalities in the composition of the blood or urine or abnormalities in imaging tests). Lab Interpretation Abnormal (test code = 02201-3) [facility] METABOLIC PANEL (NA, K, CL, CO2, GLUCOSE, BUN, CREATININE, CA)2020-11-12 10:43:10 Test Item Value Reference Range Interpretation Comments NA (test code = 131 mmol/L 135-145 L 4967988418) K (test code = 4.5 mmol/L 3.5-5.0 8127224086) CL (test code = 97 mmol/L 98-108 L 7601466665) CO2 TOTAL (test code = 30 mmol/L 23-31 6323004617) AGAP (test code = 2-16 8925894198) BUN (test code = 11 mg/dL 7-23 4649315355) GLUCOSE (test code = 169 mg/dL 70-110 H 7898703626) CREATININE (test code = 0.49 mg/dL 0.60-1.25 L 5818915556) CALCIUM (test code = 8.1 mg/dL 8.6-10.6 L 4184958076) eGFR (test code = mL/min/1.73m2 7093798025) PATTI (test code = PATTI) Association of Glomerular Filtration Rate (GFR) and Staging of Kidney Disease* + --+ --+ ------+| GFR (mL/min/1.73 m2) ?| With Kidney Damage ?| ?Without Kidney Damage+ --------+ --------+ +| ?>90 ?| ?Stage one ?| ? Normal ?+ ---+ ---+ -------+| ?60-89 ?| ?Stage two ?| ? Decreased GFR ? + --+ --+ ------+| ?30-59 ?| ?Stage three ?| ? Stage three ? + --+ --+ ------+| ?15-29 ?| ?Stage four ? | ? Stage four ?+ ---+ ---+ -------+| ?<15 (or dialysis) ? ?| ?Stage five ? | ? Stage five ?+ ---+ ---+ -------+ *Each stage assumes the associated GFR level has been in effect for at least three months. ?Stages 1 to 5, with or without kidney disease, indicate chronic kidney disease. Notes: Determination of stages one and two (with eGFR >59mL/min/1.73 m2) requires estimation of kidney damage for at least three months as defined by structural or functional abnormalities of the kidney, manifested by either:Pathological abnormalities or Markers of kidney damage (including abnormalities in the composition of the blood or urine or abnormalities in imaging tests). Lab Interpretation Abnormal (test code = 21156-3) [facility] METABOLIC PANEL (NA, K, CL, CO2, GLUCOSE, BUN, CREATININE, CA)2020-11-12 10:43:10 Test Item Value Reference Range Interpretation Comments NA (test code = 131 mmol/L 135-145 L 0325056602) K (test code = 4.5 mmol/L 3.5-5.0 7128769042) CL (test code = 97 mmol/L 98-108 L 9488664080) CO2 TOTAL (test code = 30 mmol/L 23-31 5773604630) AGAP (test code = 2-16 2313595469) BUN (test code = 11 mg/dL 7-23 5741884633) GLUCOSE (test code = 169 mg/dL 70-110 H 4112143803) CREATININE (test code = 0.49 mg/dL 0.60-1.25 L 2250822187) CALCIUM (test code = 8.1 mg/dL 8.6-10.6 L 8429033345) eGFR (test code = mL/min/1.73m2 5756379146) PATTI (test code = PATTI) Association of Glomerular Filtration Rate (GFR) and Staging of Kidney Disease* + --+ --+ ------+| GFR (mL/min/1.73 m2) ?| With Kidney Damage ?| ?Without Kidney Damage+ --------+ --------+ +| ?>90 ?| ?Stage one ?| ? Normal ?+ ---+ ---+ -------+| ?60-89 ?| ?Stage two ?| ? Decreased GFR ? + --+ --+ ------+| ?30-59 ?| ?Stage three ?| ? Stage three ? + --+ --+ ------+| ?15-29 ?| ?Stage four ? | ? Stage four ?+ ---+ ---+ -------+| ?<15 (or dialysis) ? ?| ?Stage five ? | ? Stage five ?+ ---+ ---+ -------+ *Each stage assumes the associated GFR level has been in effect for at least three months. ?Stages 1 to 5, with or without kidney disease, indicate chronic kidney disease. Notes: Determination of stages one and two (with eGFR >59mL/min/1.73 m2) requires estimation of kidney damage for at least three months as defined by structural or functional abnormalities of the kidney, manifested by either:Pathological abnormalities or Markers of kidney damage (including abnormalities in the composition of the blood or urine or abnormalities in imaging tests). Lab Interpretation Abnormal (test code = 30739-0) [facility] METABOLIC PANEL (NA, K, CL, CO2, GLUCOSE, BUN, CREATININE, CA)2020-11-12 10:43:10 Test Item Value Reference Range Interpretation Comments NA (test code = 131 mmol/L 135-145 L 7498343256) K (test code = 4.5 mmol/L 3.5-5.0 4172380153) CL (test code = 97 mmol/L 98-108 L 1855568404) CO2 TOTAL (test code = 30 mmol/L 23-31 9430832714) AGAP (test code = 2-16 0939560822) BUN (test code = 11 mg/dL 7-23 2674101348) GLUCOSE (test code = 169 mg/dL 70-110 H 3097721149) CREATININE (test code = 0.49 mg/dL 0.60-1.25 L 8820852338) CALCIUM (test code = 8.1 mg/dL 8.6-10.6 L 2725343576) eGFR (test code = mL/min/1.73m2 6185039841) PATTI (test code = PATTI) Association of Glomerular Filtration Rate (GFR) and Staging of Kidney Disease* + --+ --+ ------+| GFR (mL/min/1.73 m2) ?| With Kidney Damage ?| ?Without Kidney Damage+ --------+ --------+ +| ?>90 ?| ?Stage one ?| ? Normal ?+ ---+ ---+ -------+| ?60-89 ?| ?Stage two ?| ? Decreased GFR ? + --+ --+ ------+| ?30-59 ?| ?Stage three ?| ? Stage three ? + --+ --+ ------+| ?15-29 ?| ?Stage four ? | ? Stage four ?+ ---+ ---+ -------+| ?<15 (or dialysis) ? ?| ?Stage five ? | ? Stage five ?+ ---+ ---+ -------+ *Each stage assumes the associated GFR level has been in effect for at least three months. ?Stages 1 to 5, with or without kidney disease, indicate chronic kidney disease. Notes: Determination of stages one and two (with eGFR >59mL/min/1.73 m2) requires estimation of kidney damage for at least three months as defined by structural or functional abnormalities of the kidney, manifested by either:Pathological abnormalities or Markers of kidney damage (including abnormalities in the composition of the blood or urine or abnormalities in imaging tests). Lab Interpretation Abnormal (test code = 32452-7) [facility] WITHOUT [id number] 09:40:25 Test Item Value Reference Range Interpretation Comments WBC (test code = 6690-2) See_Comment H [A utomated message] The system [employer] generated this result transmit marcelina reference range : 4.20 - 10.70 10*3/?L. The reference range was not used to interpret this result as normal/abnormal . RBC (test code = 789-8) See_Comment L [Au tomated message] The system [employer] generated this result transmit marcelina reference range : 4.26 - 5.52 10* 6/?L. The reference r ivett was not used to interpret this result as normal/abnormal . HGB (test code = 718-7) 9.2 g/dL 12.2-16.4 L HCT (test code = 4544-3) 28.1 % 38.4-49.3 L MCH (test code = 785-6) 28.4 pg 26.1-32.7 MCV (test code = 787-2) 86.7 fL 81.7-95.6 MCHC (test code = 786-4) 32.7 g/dL 31.2-35.0 PLT (test code = 777-3) See_Comment H [Au tomated message] The system [employer] generated this result transmit marcelina reference range : 150 - 328 10*3/?L. The reference range was not used to interpret this result as normal/abnormal . MPV (test code = 9.0 fL 9.8-13.0 L 90505-6) RDW-CV (test code = 13.1 % 12.1-15.4 788-0) RDW-SD (test code = 41.6 fL 38.5-51.6 90204-3) NRBC x10^3 (test code = <0.01 See_Comment [Au tomated message] 8523465347) The system [employer] generated this result transmit marcelina reference range : 10*3/?L. The reference range was not used to interpret this result as normal/abnormal . NRBC/100 WBC (test code See_Comment [Au tomated message] = 7550446268) The system [employer] generated this result transmit marcelina reference range : 0.0 - 10.0 /100 WBC s. The reference r ivett was not used to interpret this result as normal/abnormal . IPF % (test code = 9161831813) Lab Interpretation (test Abnormal code = 94568-0) [facility] WITHOUT [id number] 09:40:25 Test Item Value Reference Range Interpretation Comments WBC (test code = 6690-2) See_Comment H [A utomated message] The system [employer] generated this result transmit marcelina reference range : 4.20 - 10.70 10*3/?L. The reference range was not used to interpret this result as normal/abnormal . RBC (test code = 789-8) See_Comment L [Au tomated message] The system [employer] generated this result transmit marcelina reference range : 4.26 - 5.52 10* 6/?L. The reference r ivett was not used to interpret this result as normal/abnormal . HGB (test code = 718-7) 9.2 g/dL 12.2-16.4 L HCT (test code = 4544-3) 28.1 % 38.4-49.3 L MCH (test code = 785-6) 28.4 pg 26.1-32.7 MCV (test code = 787-2) 86.7 fL 81.7-95.6 MCHC (test code = 786-4) 32.7 g/dL 31.2-35.0 PLT (test code = 777-3) See_Comment H [Au tomated message] The system [employer] generated this result transmit marcelina reference range : 150 - 328 10*3/?L. The reference range was not used to interpret this result as normal/abnormal . MPV (test code = 9.0 fL 9.8-13.0 L 77574-3) RDW-CV (test code = 13.1 % 12.1-15.4 788-0) RDW-SD (test code = 41.6 fL 38.5-51.6 93341-7) NRBC x10^3 (test code = <0.01 See_Comment [Au tomated message] [id number]) The system [employer] generated this result transmit marcelina reference range : 10*3/?L. The reference range was not used to interpret this result as normal/abnormal . NRBC/100 WBC (test code See_Comment [Au tomated message] = 1186316914) The [facility] generated this result transmit marcelina reference range : 0.0 - 10.0 /100 WBC s. The reference r ivett was not used to interpret this result as normal/abnormal . IPF % (test code = 2159722601) Lab Interpretation (test Abnormal code = 85780-0) [facility] WITHOUT [id number] 09:40:25 Test Item Value Reference Range Interpretation Comments WBC (test code = 6690-2) See_Comment H [A utomated message] The system [employer] generated this result transmit marcelina reference range : 4.20 - 10.70 10*3/?L. The reference range was not used to interpret this result as normal/abnormal . RBC (test code = 789-8) See_Comment L [Au tomated message] The system [employer] generated this result transmit marcelina reference range : 4.26 - 5.52 10* 6/?L. The reference r ivett was not used to interpret this result as normal/abnormal . HGB (test code = 718-7) 9.2 g/dL 12.2-16.4 L HCT (test code = 4544-3) 28.1 % 38.4-49.3 L MCH (test code = 785-6) 28.4 pg 26.1-32.7 MCV (test code = 787-2) 86.7 fL 81.7-95.6 MCHC (test code = 786-4) 32.7 g/dL 31.2-35.0 PLT (test code = 777-3) See_Comment H [Au tomated message] The system [employer] generated this result transmit marcelina reference range : 150 - 328 10*3/?L. The reference range was not used to interpret this result as normal/abnormal . MPV (test code = 9.0 fL 9.8-13.0 L 28722-7) RDW-CV (test code = 13.1 % 12.1-15.4 788-0) RDW-SD (test code = 41.6 fL 38.5-51.6 44009-4) NRBC x10^3 (test code = <0.01 See_Comment [Au tomated message] [id number]) The system [employer] generated this result transmit marcelina reference range : 10*3/?L. The reference range was not used to interpret this result as normal/abnormal . NRBC/100 WBC (test code See_Comment [Au tomated message] = 9646044371) The [facility] generated this result transmit marcelina reference range : 0.0 - 10.0 /100 WBC s. The reference r ivett was not used to interpret this result as normal/abnormal . IPF % (test code = 8129049932) Lab Interpretation (test Abnormal code = 90195-3) [facility] WITHOUT [id number] 09:40:25 Test Item Value Reference Range Interpretation Comments WBC (test code = 6690-2) See_Comment H [A utomated message] The system [employer] generated this result transmit marcelina reference range : 4.20 - 10.70 10*3/?L. The reference range was not used to interpret this result as normal/abnormal . RBC (test code = 789-8) See_Comment L [Au tomated message] The system [employer] generated this result transmit marcelina reference range : 4.26 - 5.52 10* 6/?L. The reference r ivett was not used to interpret this result as normal/abnormal . HGB (test code = 718-7) 9.2 g/dL 12.2-16.4 L HCT (test code = 4544-3) 28.1 % 38.4-49.3 L MCH (test code = 785-6) 28.4 pg 26.1-32.7 MCV (test code = 787-2) 86.7 fL 81.7-95.6 MCHC (test code = 786-4) 32.7 g/dL 31.2-35.0 PLT (test code = 777-3) See_Comment H [Au tomated message] The system [employer] generated this result transmit marcelina reference range : 150 - 328 10*3/?L. The reference range was not used to interpret this result as normal/abnormal . MPV (test code = 9.0 fL 9.8-13.0 L 83629-1) RDW-CV (test code = 13.1 % 12.1-15.4 788-0) RDW-SD (test code = 41.6 fL 38.5-51.6 87823-5) NRBC x10^3 (test code = <0.01 See_Comment [Au tomated message] [id number]) The system [employer] generated this result transmit marcelina reference range : 10*3/?L. The reference range was not used to interpret this result as normal/abnormal . NRBC/100 WBC (test code See_Comment [Au tomated message] = 1669012677) The system [employer] generated this result transmit marcelina reference range : 0.0 - 10.0 /100 WBC s. The reference r ivett was not used to interpret this result as normal/abnormal . IPF % (test code = [id number]) Lab Interpretation (test Abnormal code = 61365-9) [facility] GLUCOSE (AUTOMATED)2020-11-12 09:31:23 Test Item Value Reference Range Interpretation Comments POCT GLU (test code = [id number]) 173 mg/dL 70-110 H Lab Interpretation (test code = Abnormal 33882-4) [facility] GLUCOSE (AUTOMATED)2020-11-12 09:31:23 Test Item Value Reference Range Interpretation Comments POCT GLU (test code = [id number]) 173 mg/dL 70-110 H Lab Interpretation (test code = Abnormal 47170-0) [facility] GLUCOSE (AUTOMATED)2020-11-12 09:31:23 Test Item Value Reference Range Interpretation Comments POCT GLU (test code = [id number]) 173 mg/dL 70-110 H Lab Interpretation (test code = Abnormal 04534-7) [facility] GLUCOSE (AUTOMATED)2020-11-12 09:31:23 Test Item Value Reference Range Interpretation Comments POCT GLU (test code = 9502284220) 173 mg/dL 70-110 H Lab Interpretation (test code = Abnormal 70930-7) [facility] GLUCOSE (AUTOMATED)2020-11-12 05:05:45 Test Item Value Reference Range Interpretation Comments POCT GLU (test code = 8937349708) 184 mg/dL 70-110 H Lab Interpretation (test code = Abnormal 76409-2) [facility] GLUCOSE (AUTOMATED)2020-11-12 05:05:45 Test Item Value Reference Range Interpretation Comments POCT GLU (test code = 8284115407) 184 mg/dL 70-110 H Lab Interpretation (test code = Abnormal 88308-9) [facility] GLUCOSE (AUTOMATED)2020-11-12 05:05:45 Test Item Value Reference Range Interpretation Comments POCT GLU (test code = 1512470231) 184 mg/dL 70-110 H Lab Interpretation (test code = Abnormal 36966-1) [facility] GLUCOSE (AUTOMATED)2020-11-12 05:05:45 Test Item Value Reference Range Interpretation Comments POCT GLU (test code = 0536356115) 184 mg/dL 70-110 H Lab Interpretation (test code = Abnormal 35962-1) [facility] GLUCOSE (AUTOMATED)2020-11-12 01:44:10 Test Item Value Reference Range Interpretation Comments POCT GLU (test code = 0160930340) 328 mg/dL 70-110 H Lab Interpretation (test code = Abnormal 66448-2) [facility] GLUCOSE (AUTOMATED)2020-11-12 01:44:10 Test Item Value Reference Range Interpretation Comments POCT GLU (test code = 9741482052) 328 mg/dL 70-110 H Lab Interpretation (test code = Abnormal 13681-4) [facility] GLUCOSE (AUTOMATED)2020-11-12 01:44:10 Test Item Value Reference Range Interpretation Comments POCT GLU (test code = 8839546505) 328 mg/dL 70-110 H Lab Interpretation (test code = Abnormal 13021-8) [facility] GLUCOSE (AUTOMATED)2020-11-12 01:44:10 Test Item Value Reference Range Interpretation Comments POCT GLU (test code = 1138661819) 328 mg/dL 70-110 H Lab Interpretation (test code = Abnormal 45053-4) [id number] 21:58:33COVID DMT InterpretationInterpretation/Recommendations: Molecular NAAT Tests for Active Infection with the SARS-CoV-2 Virus: The patient has currently tested negative for the SARS-CoV-2 virus that causes COVID-19 illness. This most likely indicates that the patient does not have an active infection with the SARS-CoV-2 virus. However, infection is not completely ruled out as the false negative rate for molecular NAAT testing using a nasopharyngeal sample can be up to 30%, mostly dependent on the timing of sample collection in relation to illness onset and any deficiencies in sampling techniques. If the patient has symptoms concerning for COVID-19 illness, a repeat NAAT test (PCR, Rapid ID Now, etc.) should be performed, at which time the SARS-CoV-2 virus - if present - may have reached a detectable viral load (usually peaking by the end of the first week of symptoms). Tests for IgM and/or IgG Antibodies to the SARS-CoV-2 Virus: If the patient develops COVID-19 illness in the future, testing for IgM and IgG antibodies approximately 3 weeks after illness onset will likely indicate if the patient has produced antibodies to the SARS-CoV-2 virus. However, some patients may take longer to develop detectable antibodies, while some patients who were infected with SARS-CoV-2 may never develop antibodies. While antibodies to SARS-CoV-2 may provide some degree of immunity, at this time the strength and duration of the antibody response is unknown. ? ? Interpretation Result Comments:These interpretation comments are based upon all COVID-19 testing the patient has had at [facility], including molecular NAAT testing (more commonly known as PCR testing and Rapid ID Now testing) and antibody testing. It does not take into account any testing that a patient has had outside of the [facility] medical record. [facility] LABORATORY SERVICESCOVID ResultsSA RS-CoV-2 Rapid ID NOW (no units) ? ? Date ? Value ? 11/11/2020 ? Not Detected ? ? ? 11/05/2020 ? Not Detected ? [facility] [id number] 21:58:33COVID DMT InterpretationInterpretation/Recommendations: Molecular NAAT Tests for Active Infection with the SARS-CoV-2 Virus: The patient has currently tested negative for the SARS-CoV-2 virus that causes COVID-19 illness. This most likely indicates that the patient does not have an active infection with the SARS-CoV-2 virus. However, infection is not completely ruled out as the false negative rate for molecular NAAT testing using a nasopharyngeal sample can be up to 30%, mostly dependent on the timing of sample collection in relation to illness onset and any deficiencies in sampling techniques. If the patient has symptoms concerning for COVID-19 illness, a repeat NAAT test (PCR, Rapid ID Now, etc.) should be performed, at which time the SARS-CoV-2 virus - if present - may have reached a detectable viral load (usually peaking by the end of the first week of symptoms). Tests for IgM and/or IgG Antibodies to the SARS-CoV-2 Virus: If the patient develops COVID-19 illness in the future, testing for IgM and IgG antibodies approximately 3 weeks after illness onset will likely indicate if the patient has produced antibodies to the SARS-CoV-2 virus. However, some patients may take longer to develop detectable antibodies, while some patients who were infected with SARS-CoV-2 may never develop antibodies. While antibodies to SARS-CoV-2 may provide some degree of immunity, at this time the strength and duration of the antibody response is unknown. ? ? Interpretation Result Comments:These interpretation comments are based upon all COVID-19 testing the patient has had at [facility], including molecular NAAT testing (more commonly known as PCR testing and Rapid ID Now testing) and antibody testing. It does not take into account any testing that a patient has had outside of the [facility] medical record. [facility] LABORATORY SERVICESCOVID ResultsSA RS-CoV-2 Rapid ID NOW (no units) ? ? Date ? Value ? 11/11/2020 ? Not Detected ? ? ? 11/05/2020 ? Not Detected ? [facility] COVID [id number] 21:58:33COVID DMT InterpretationInterpretation/Recommendations: Molecular NAAT Tests for Active Infection with the SARS-CoV-2 Virus: The patient has currently tested negative for the SARS-CoV-2 virus that causes COVID-19 illness. This most likely indicates that the patient does not have an active infection with the SARS-CoV-2 virus. However, infection is not completely ruled out as the false negative rate for molecular NAAT testing using a nasopharyngeal sample can be up to 30%, mostly dependent on the timing of sample collection in relation to illness onset and any deficiencies in sampling techniques. If the patient has symptoms concerning for COVID-19 illness, a repeat NAAT test (PCR, Rapid ID Now, etc.) should be performed, at which time the SARS-CoV-2 virus - if present - may have reached a detectable viral load (usually peaking by the end of the first week of symptoms). Tests for IgM and/or IgG Antibodies to the SARS-CoV-2 Virus: If the patient develops COVID-19 illness in the future, testing for IgM and IgG antibodies approximately 3 weeks after illness onset will likely indicate if the patient has produced antibodies to the SARS-CoV-2 virus. However, some patients may take longer to develop detectable antibodies, while some patients who were infected with SARS-CoV-2 may never develop antibodies. While antibodies to SARS-CoV-2 may provide some degree of immunity, at this time the strength and duration of the antibody response is unknown. ? ? Interpretation Result Comments:These interpretation comments are based upon all COVID-19 testing the patient has had at [facility], including molecular NAAT testing (more commonly known as PCR testing and Rapid ID Now testing) and antibody testing. It does not take into account any testing that a patient has had outside of the [facility] medical record. [facility] LABORATORY SERVICESCOVID ResultsSA RS-CoV-2 Rapid ID NOW (no units) ? ? Date ? Value ? 11/11/2020 ? Not Detected ? ? ? 11/05/2020 ? Not Detected ? [facility] COVID [id number] 21:58:33COVID DMT InterpretationInterpretation/Recommendations: Molecular NAAT Tests for Active Infection with the SARS-CoV-2 Virus: The patient has currently tested negative for the SARS-CoV-2 virus that causes COVID-19 illness. This most likely indicates that the patient does not have an active infection with the SARS-CoV-2 virus. However, infection is not completely ruled out as the false negative rate for molecular NAAT testing using a nasopharyngeal sample can be up to 30%, mostly dependent on the timing of sample collection in relation to illness onset and any deficiencies in sampling techniques. If the patient has symptoms concerning for COVID-19 illness, a repeat NAAT test (PCR, Rapid ID Now, etc.) should be performed, at which time the SARS-CoV-2 virus - if present - may have reached a detectable viral load (usually peaking by the end of the first week of symptoms). Tests for IgM and/or IgG Antibodies to the SARS-CoV-2 Virus: If the patient develops COVID-19 illness in the future, testing for IgM and IgG antibodies approximately 3 weeks after illness onset will likely indicate if the patient has produced antibodies to the SARS-CoV-2 virus. However, some patients may take longer to develop detectable antibodies, while some patients who were infected with SARS-CoV-2 may never develop antibodies. While antibodies to SARS-CoV-2 may provide some degree of immunity, at this time the strength and duration of the antibody response is unknown. ? ? Interpretation Result Comments:These interpretation comments are based upon all COVID-19 testing the patient has had at [facility], including molecular NAAT testing (more commonly known as PCR testing and Rapid ID Now testing) and antibody testing. It does not take into account any testing that a patient has had outside of the [facility] medical record. [facility] LABORATORY SERVICESCOVID ResultsSA RS-CoV-2 Rapid ID NOW (no units) ? ? Date ? Value ? 11/11/2020 ? Not Detected ? ? ? 11/05/2020 ? Not Detected ? [facility]2020-11-11 21:14:17 Test Item Value Reference Range Interpretation Comments POCT GLU (test code = 4778791903) 202 mg/dL 70-110 H Lab Interpretation (test code = Abnormal 24251-9) [facility] GLUCOSE (AUTOMATED)2020-11-11 21:14:17 Test Item Value Reference Range Interpretation Comments POCT GLU (test code = 6692276284) 202 mg/dL 70-110 H Lab Interpretation (test code = Abnormal 50603-7) [facility] GLUCOSE (AUTOMATED)2020-11-11 21:14:17 Test Item Value Reference Range Interpretation Comments POCT GLU (test code = 7790629594) 202 mg/dL 70-110 H Lab Interpretation (test code = Abnormal 93662-0) [facility] GLUCOSE (AUTOMATED)2020-11-11 21:14:17 Test Item Value Reference Range Interpretation Comments POCT GLU (test code = 6175580903) 202 mg/dL 70-110 H Lab Interpretation (test code = Abnormal 80942-1) [facility] GLUCOSE (AUTOMATED)2020-11-11 21:14:12 Test Item Value Reference Range Interpretation Comments POCT GLU (test code = 6817870150) 180 mg/dL 70-110 H Lab Interpretation (test code = Abnormal 62698-4) [facility] GLUCOSE (AUTOMATED)2020-11-11 21:14:12 Test Item Value Reference Range Interpretation Comments POCT GLU (test code = 4262033880) 180 mg/dL 70-110 H Lab Interpretation (test code = Abnormal 63930-8) [facility] GLUCOSE (AUTOMATED)2020-11-11 21:14:12 Test Item Value Reference Range Interpretation Comments POCT GLU (test code = 4790161293) 180 mg/dL 70-110 H Lab Interpretation (test code = Abnormal 59005-4) [facility] GLUCOSE (AUTOMATED)2020-11-11 21:14:12 Test Item Value Reference Range Interpretation Comments POCT GLU (test code = 0370946443) 180 mg/dL 70-110 H Lab Interpretation (test code = Abnormal 59209-4) [facility] and Screen - ONCE [id number] 17:04:58 Test Item Value Reference Range Interpretation Comments ABO & RH (test code A POSITIVE Performe d at [facility] = 20) Laboratory Serv [facility] Blood [address] [id number] Free: [phone] A No. [id number] IAT (test code = Negative Performed a t [facility] 1185) Laboratory [facility] Blood [address] s [id number] Free: [phone] A No. [id number] [facility] and Screen - ONCE [id number] 17:04:58 Test Item Value Reference Range Interpretation Comments ABO & RH (test code A POSITIVE Performe d at [facility] = 20) Laboratory [facility] Blood Bank[address] [place] [address] s [address]Itcx Free: [phone] A No. [id number] IAT (test code = Negative Performed a t [facility] 1185) Laboratory [facility] Blood [address] [place] [address] s [address]Uhij Free: [phone] A No. [id number] [facility] and Screen - ONCE [id number] 17:04:58 Test Item Value Reference Range Interpretation Comments ABO & RH (test code A POSITIVE Performe d at [facility] = 20) Laboratory [facility] Blood Bank[address] [place] [address] s [address]Ecwv Free: [phone] A No. [id number] IAT (test code = Negative Performed a t [facility] 1185) Laboratory [facility] Blood [address] [address]Xwzv Free: [phone] A No. [id number] [facility] [id number] 17:04:58 Test Item Value Reference Range Interpretation Comments ABO & RH (test code A POSITIVE Performe d at [facility] = 20) Laboratory [facility] Blood [address] s [address]Ghex Free: [phone] A No. [id number] IAT (test code = Negative Performed a t [facility] 1185) Laboratory [facility] Blood [address] s [address]Bgzg Free: [phone] A No. [id number] [facility] NOW RAPID TESTING)2020-11-11 16:37:43 Test Item Value Reference Range Interpretation Comments SARS-CoV-2 Rapid ID NOW Not Detected Not Detected (test code = 93974-7) PATTI (test code = PATTI) ID NOW COVID-19 Assay is an isothermal nucleic acid amplification test intended for the qualitative detection of nucleic acid from SARS-CoV-2 viral RNA in nasopharyngeal ([employer]ACHINE [employer]) specimens. It is used under Emergency Use Authorization (EUA) by FDA. The limit of detection (LOD) of the assay is 125 Genome Equivalents/mL. A positive result is indicative of the presence of SARS-CoV-2 RNA. ?Clinical correlation with patient history and other diagnostic information is necessary to determine patient infection status. A negative (Not Detected) result does not preclude SARS-CoV-2 infection. In patients with clinical symptoms and other tests that are consistent with SARS-CoV-2 infection, negative results should be treated as presumptive negative and a new specimen should be tested with alternative PCR molecular test. Invalid: Please collect a new specimen for repeat patient testing if clinically indicated. Lab Interpretation Normal (test code = 58472-7) [facility]ID [facility]2020-11-11 16:37:43 Test Item Value Reference Range Interpretation Comments SARS-CoV-2 Rapid ID NOW Not Detected Not Detected (test code = 52391-1) PATTI (test code = PATTI) ID NOW COVID-19 Assay is an isothermal nucleic acid amplification test intended for the qualitative detection of nucleic acid from SARS-CoV-2 viral RNA in nasopharyngeal (CHINCHILL[employer] MACHINE OPERATOR) specimens. It is used under Emergency Use Authorization (EUA) by [facility]. The limit of detection (LOD) of the assay is 125 Genome Equivalents/mL. A positive result is indicative of the presence of SARS-CoV-2 RNA. ?Clinical correlation with patient history and other diagnostic information is necessary to determine patient infection status. A negative (Not Detected) result does not preclude SARS-CoV-2 infection. In patients with clinical symptoms and other tests that are consistent with SARS-CoV-2 infection, negative results should be treated as presumptive negative and a new specimen should be tested with alternative PCR molecular test. Invalid: Please collect a new specimen for repeat patient testing if clinically indicated. Lab Interpretation Normal (test code = 94312-9) [facility]ID [facility]2020-11-11 16:37:43 Test Item Value Reference Range Interpretation Comments SARS-CoV-2 Rapid ID NOW Not Detected Not Detected (test code = 50239-1) PATTI (test code = PATTI) ID NOW COVID-19 Assay is an isothermal nucleic acid amplification test intended for the qualitative detection of nucleic acid from SARS-CoV-2 viral RNA in nasopharyngeal (CHINCHILL[employer] MACHINE OPERATOR) specimens. It is used under Emergency Use Authorization (EUA) by FDA. The limit of detection (LOD) of the assay is 125 Genome Equivalents/mL. A positive result is indicative of the presence of SARS-CoV-2 RNA. ?Clinical correlation with patient history and other diagnostic information is necessary to determine patient infection status. A negative (Not Detected) result does not preclude SARS-CoV-2 infection. In patients with clinical symptoms and other tests that are consistent with SARS-CoV-2 infection, negative results should be treated as presumptive negative and a new specimen should be tested with alternative PCR molecular test. Invalid: Please collect a new specimen for repeat patient testing if clinically indicated. Lab Interpretation Normal (test code = 14060-7) [facility]ID [facility]2020-11-11 16:37:43 Test Item Value Reference Range Interpretation Comments SARS-CoV-2 Rapid ID NOW Not Detected Not Detected (test code = 17604-5) PATTI (test code = PATTI) ID NOW COVID-19 Assay is an isothermal nucleic acid amplification test intended for the qualitative detection of nucleic acid from SARS-CoV-2 viral RNA in nasopharyngeal (CHINCHILL[employer] MACHINE OPERATOR) specimens. It is used under Emergency Use Authorization (EUA) by FDA. The limit of detection (LOD) of the assay is 125 Genome Equivalents/mL. A positive result is indicative of the presence of SARS-CoV-2 RNA. ?Clinical correlation with patient history and other diagnostic information is necessary to determine patient infection status. A negative (Not Detected) result does not preclude SARS-CoV-2 infection. In patients with clinical symptoms and other tests that are consistent with SARS-CoV-2 infection, negative results should be treated as presumptive negative and a new specimen should be tested with alternative PCR molecular test. Invalid: Please collect a new specimen for repeat patient testing if clinically indicated. Lab Interpretation Normal (test code = 52645-9) [facility] GLUCOSE (AUTOMATED)2020-11-11 12:46:38 Test Item Value Reference Range Interpretation Comments POCT GLU (test code = 7280259061) 115 mg/dL 70-110 H Lab Interpretation (test code = Abnormal 30367-2) [facility] GLUCOSE (AUTOMATED)2020-11-11 12:46:38 Test Item Value Reference Range Interpretation Comments POCT GLU (test code = 0466187865) 115 mg/dL 70-110 H Lab Interpretation (test code = Abnormal 50916-0) [facility] GLUCOSE (AUTOMATED)2020-11-11 12:46:38 Test Item Value Reference Range Interpretation Comments POCT GLU (test code = 3798471318) 115 mg/dL 70-110 H Lab Interpretation (test code = Abnormal 71278-3) [facility] GLUCOSE (AUTOMATED)2020-11-11 12:46:38 Test Item Value Reference Range Interpretation Comments POCT GLU (test code = 9556684110) 115 mg/dL 70-110 H Lab Interpretation (test code = Abnormal 94639-4) [facility] GLUCOSE (AUTOMATED)2020-11-11 09:15:21 Test Item Value Reference Range Interpretation Comments POCT GLU (test code = 8589976953) 91 mg/dL 70-110 Lab Interpretation (test code = Normal 72959-0) [facility] GLUCOSE (AUTOMATED)2020-11-11 09:15:21 Test Item Value Reference Range Interpretation Comments POCT GLU (test code = 4999125307) 91 mg/dL 70-110 Lab Interpretation (test code = Normal 78242-2) [facility] GLUCOSE (AUTOMATED)2020-11-11 09:15:21 Test Item Value Reference Range Interpretation Comments POCT GLU (test code = 1040615735) 91 mg/dL 70-110 Lab Interpretation (test code = Normal 73783-7) [facility] GLUCOSE (AUTOMATED)2020-11-11 09:15:21 Test Item Value Reference Range Interpretation Comments POCT GLU (test code = 7880439998) 91 mg/dL 70-110 Lab Interpretation (test code = Normal 02270-4) [facility] GLUCOSE (AUTOMATED)2020-11-11 06:45:45 Test Item Value Reference Range Interpretation Comments POCT GLU (test code = 2370748322) 110 mg/dL 70-110 Lab Interpretation (test code = Normal 94024-9) [facility] GLUCOSE (AUTOMATED)2020-11-11 06:45:45 Test Item Value Reference Range Interpretation Comments POCT GLU (test code = 9470005346) 110 mg/dL 70-110 Lab Interpretation (test code = Normal 10319-7) [facility] GLUCOSE (AUTOMATED)2020-11-11 06:45:45 Test Item Value Reference Range Interpretation Comments POCT GLU (test code = 8238624551) 110 mg/dL 70-110 Lab Interpretation (test code = Normal 60902-1) [facility] GLUCOSE (AUTOMATED)2020-11-11 06:45:45 Test Item Value Reference Range Interpretation Comments POCT GLU (test code = 7733044659) 110 mg/dL 70-110 Lab Interpretation (test code = Normal 87316-9) [facility] GLUCOSE (AUTOMATED)2020-11-11 03:09:10 Test Item Value Reference Range Interpretation Comments POCT GLU (test code = 1587306702) 150 mg/dL 70-110 H Lab Interpretation (test code = Abnormal 06901-8) [facility] GLUCOSE (AUTOMATED)2020-11-11 03:09:10 Test Item Value Reference Range Interpretation Comments POCT GLU (test code = 3839639220) 150 mg/dL 70-110 H Lab Interpretation (test code = Abnormal 62004-3) [facility] GLUCOSE (AUTOMATED)2020-11-11 03:09:10 Test Item Value Reference Range Interpretation Comments POCT GLU (test code = 4757803826) 150 mg/dL 70-110 H Lab Interpretation (test code = Abnormal 42249-0) [facility] GLUCOSE (AUTOMATED)2020-11-11 03:09:10 Test Item Value Reference Range Interpretation Comments POCT GLU (test code = 1290333547) 150 mg/dL 70-110 H Lab Interpretation (test code = Abnormal 41187-3) [facility] GLUCOSE (AUTOMATED)2020-11-10 22:39:34 Test Item Value Reference Range Interpretation Comments POCT GLU (test code = 7409304132) 289 mg/dL 70-110 H Lab Interpretation (test code = Abnormal 12084-0) [facility] GLUCOSE (AUTOMATED)2020-11-10 22:39:34 Test Item Value Reference Range Interpretation Comments POCT GLU (test code = 1538895420) 289 mg/dL 70-110 H Lab Interpretation (test code = Abnormal 55647-3) [facility] GLUCOSE (AUTOMATED)2020-11-10 22:39:34 Test Item Value Reference Range Interpretation Comments POCT GLU (test code = 2047297847) 289 mg/dL 70-110 H Lab Interpretation (test code = Abnormal 65893-9) [facility] GLUCOSE (AUTOMATED)2020-11-10 22:39:34 Test Item Value Reference Range Interpretation Comments POCT GLU (test code = 4087794533) 289 mg/dL 70-110 H Lab Interpretation (test code = Abnormal 23835-2) [facility] GLUCOSE (AUTOMATED)2020-11-10 22:22:49 Test Item Value Reference Range Interpretation Comments POCT GLU (test code = 9319855931) 285 mg/dL 70-110 H Lab Interpretation (test code = Abnormal 88713-2) [facility] GLUCOSE (AUTOMATED)2020-11-10 22:22:49 Test Item Value Reference Range Interpretation Comments POCT GLU (test code = 4118382736) 285 mg/dL 70-110 H Lab Interpretation (test code = Abnormal 63529-2) [facility] GLUCOSE (AUTOMATED)2020-11-10 22:22:49 Test Item Value Reference Range Interpretation Comments POCT GLU (test code = 6658376459) 285 mg/dL 70-110 H Lab Interpretation (test code = Abnormal 80853-6) [facility] GLUCOSE (AUTOMATED)2020-11-10 22:22:49 Test Item Value Reference Range Interpretation Comments POCT GLU (test code = 6713785332) 285 mg/dL 70-110 H Lab Interpretation (test code = Abnormal 47626-0) [facility] GLUCOSE (AUTOMATED)2020-11-10 20:03:21 Test Item Value Reference Range Interpretation Comments POCT GLU (test code = 2196817452) 337 mg/dL 70-110 H Lab Interpretation (test code = Abnormal 08566-4) [facility] GLUCOSE (AUTOMATED)2020-11-10 20:03:21 Test Item Value Reference Range Interpretation Comments POCT GLU (test code = 2419282350) 337 mg/dL 70-110 H Lab Interpretation (test code = Abnormal 66693-8) [facility] GLUCOSE (AUTOMATED)2020-11-10 20:03:21 Test Item Value Reference Range Interpretation Comments POCT GLU (test code = 5197666146) 337 mg/dL 70-110 H Lab Interpretation (test code = Abnormal 95957-4) [facility] GLUCOSE (AUTOMATED)2020-11-10 20:03:21 Test Item Value Reference Range Interpretation Comments POCT GLU (test code = 1932408405) 337 mg/dL 70-110 H Lab Interpretation (test code = Abnormal 06456-1) [facility] GLUCOSE (AUTOMATED)2020-11-10 15:02:26 Test Item Value Reference Range Interpretation Comments POCT GLU (test code = 0868781823) 193 mg/dL 70-110 H Lab Interpretation (test code = Abnormal 45569-8) [facility] GLUCOSE (AUTOMATED)2020-11-10 15:02:26 Test Item Value Reference Range Interpretation Comments POCT GLU (test code = 5417571149) 193 mg/dL 70-110 H Lab Interpretation (test code = Abnormal 06955-6) [facility] GLUCOSE (AUTOMATED)2020-11-10 15:02:26 Test Item Value Reference Range Interpretation Comments POCT GLU (test code = 3817719611) 193 mg/dL 70-110 H Lab Interpretation (test code = Abnormal 57383-0) [facility] GLUCOSE (AUTOMATED)2020-11-10 15:02:26 Test Item Value Reference Range Interpretation Comments POCT GLU (test code = 4225603375) 193 mg/dL 70-110 H Lab Interpretation (test code = Abnormal 10104-4) [facility] GLUCOSE (AUTOMATED)2020-11-10 14:04:43 Test Item Value Reference Range Interpretation Comments POCT GLU (test code = 4212047294) 173 mg/dL 70-110 H Lab Interpretation (test code = Abnormal 98562-1) [facility] GLUCOSE (AUTOMATED)2020-11-10 14:04:43 Test Item Value Reference Range Interpretation Comments POCT GLU (test code = 6675307381) 173 mg/dL 70-110 H Lab Interpretation (test code = Abnormal 64580-6) [facility] GLUCOSE (AUTOMATED)2020-11-10 14:04:43 Test Item Value Reference Range Interpretation Comments POCT GLU (test code = 3879744384) 173 mg/dL 70-110 H Lab Interpretation (test code = Abnormal 81167-4) [facility] GLUCOSE (AUTOMATED)2020-11-10 14:04:43 Test Item Value Reference Range Interpretation Comments POCT GLU (test code = 9479104311) 173 mg/dL 70-110 H Lab Interpretation (test code = Abnormal 99356-8) [facility] METABOLIC PANEL (NA, K, CL, CO2, GLUCOSE, BUN, CREATININE, CA)2020-11-10 12:13:08 Test Item Value Reference Range Interpretation Comments NA (test code = 134 mmol/L 135-145 L 5454104357) K (test code = 4.3 mmol/L 3.5-5.0 2978039808) CL (test code = 101 mmol/L 98-108 4380384024) CO2 TOTAL (test code = 31 mmol/L 23-31 4032159782) AGAP (test code = 2-16 5036948737) BUN (test code = 12 mg/dL 7-23 3720405541) GLUCOSE (test code = 162 mg/dL 70-110 H 4359482421) CREATININE (test code = 0.48 mg/dL 0.60-1.25 L 8731528770) CALCIUM (test code = 8.3 mg/dL 8.6-10.6 L 4992943381) eGFR (test code = mL/min/1.73m2 7219147368) PATTI (test code = PATTI) Association of Glomerular Filtration Rate (GFR) and Staging of Kidney Disease* + --+ --+ ------+| GFR (mL/min/1.73 m2) ?| With Kidney Damage ?| ?Without Kidney Damage+ --------+ --------+ +| ?>90 ?| ?Stage one ?| ? Normal ?+ ---+ ---+ -------+| ?60-89 ?| ?Stage two ?| ? Decreased GFR ? + --+ --+ ------+| ?30-59 ?| ?Stage three ?| ? Stage three ? + --+ --+ ------+| ?15-29 ?| ?Stage four ? | ? Stage four ?+ ---+ ---+ -------+| ?<15 (or dialysis) ? ?| ?Stage five ? | ? Stage five ?+ ---+ ---+ -------+ *Each stage assumes the associated GFR level has been in effect for at least three months. ?Stages 1 to 5, with or without kidney disease, indicate chronic kidney disease. Notes: Determination of stages one and two (with eGFR >59mL/min/1.73 m2) requires estimation of kidney damage for at least three months as defined by structural or functional abnormalities of the kidney, manifested by either:Pathological abnormalities or Markers of kidney damage (including abnormalities in the composition of the blood or urine or abnormalities in imaging tests). Lab Interpretation Abnormal (test code = 00422-2) [facility] Test Item Value Reference Range Interpretation Comments MAGNESIUM (test code = 9581946856) 2.1 mg/dL 1.7-2.4 Lab Interpretation (test code = Normal 69992-0) [facility] Test Item Value Reference Range Interpretation Comments PHOSPHORUS (test code = 1066859148) 3.9 mg/dL 2.5-5.0 Lab Interpretation (test code = Normal 13153-9) [facility] (NA, K, CL, CO2, GLUCOSE, BUN, CREATININE, CA)2020-11-10 12:13:08 Test Item Value Reference Range Interpretation Comments NA (test code = 134 mmol/L 135-145 L 3896130949) K (test code = 4.3 mmol/L 3.5-5.0 9650259436) CL (test code = 101 mmol/L 98-108 7231925916) CO2 TOTAL (test code = 31 mmol/L 23-31 6223346260) AGAP (test code = 2-16 1000471029) BUN (test code = 12 mg/dL 7-23 8017406396) GLUCOSE (test code = 162 mg/dL 70-110 H 2092959767) CREATININE (test code = 0.48 mg/dL 0.60-1.25 L 1417575599) CALCIUM (test code = 8.3 mg/dL 8.6-10.6 L 1566846348) eGFR (test code = mL/min/1.73m2 1514170524) PATTI (test code = PATTI) Association of Glomerular Filtration Rate (GFR) and Staging of Kidney Disease* + --+ --+ ------+| GFR (mL/min/1.73 m2) ?| With Kidney Damage ?| ?Without Kidney Damage+ --------+ --------+ +| ?>90 ?| ?Stage one ?| ? Normal ?+ ---+ ---+ -------+| ?60-89 ?| ?Stage two ?| ? Decreased GFR ? + --+ --+ ------+| ?30-59 ?| ?Stage three ?| ? Stage three ? + --+ --+ ------+| ?15-29 ?| ?Stage four ? | ? Stage four ?+ ---+ ---+ -------+| ?<15 (or dialysis) ? ?| ?Stage five ? | ? Stage five ?+ ---+ ---+ -------+ *Each stage assumes the associated GFR level has been in effect for at least three months. ?Stages 1 to 5, with or without kidney disease, indicate chronic kidney disease. Notes: Determination of stages one and two (with eGFR >59mL/min/1.73 m2) requires estimation of kidney damage for at least three months as defined by structural or functional abnormalities of the kidney, manifested by either:Pathological abnormalities or Markers of kidney damage (including abnormalities in the composition of the blood or urine or abnormalities in imaging tests). Lab Interpretation Abnormal (test code = 56544-5) [facility]:13:08 Test Item Value Reference Range Interpretation Comments MAGNESIUM (test code = 6714924616) 2.1 mg/dL 1.7-2.4 Lab Interpretation (test code = Normal 21172-7) [facility]:13:08 Test Item Value Reference Range Interpretation Comments PHOSPHORUS (test code = 8456702317) 3.9 mg/dL 2.5-5.0 Lab Interpretation (test code = Normal 20769-1) [facility] (NA, K, CL, CO2, GLUCOSE, BUN, CREATININE, CA)2020-11-10 12:13:08 Test Item Value Reference Range Interpretation Comments NA (test code = 134 mmol/L 135-145 L 1222331979) K (test code = 4.3 mmol/L 3.5-5.0 5321423231) CL (test code = 101 mmol/L 98-108 2490239963) CO2 TOTAL (test code = 31 mmol/L 23-31 6261635557) AGAP (test code = 2-16 9538470859) BUN (test code = 12 mg/dL 7-23 4659074688) GLUCOSE (test code = 162 mg/dL 70-110 H 6240712158) CREATININE (test code = 0.48 mg/dL 0.60-1.25 L 3220516740) CALCIUM (test code = 8.3 mg/dL 8.6-10.6 L 7290432435) eGFR (test code = mL/min/1.73m2 8441890672) PATTI (test code = PATTI) Association of Glomerular Filtration Rate (GFR) and Staging of Kidney Disease* + --+ --+ ------+| GFR (mL/min/1.73 m2) ?| With Kidney Damage ?| ?Without Kidney Damage+ --------+ --------+ +| ?>90 ?| ?Stage one ?| ? Normal ?+ ---+ ---+ -------+| ?60-89 ?| ?Stage two ?| ? Decreased GFR ? + --+ --+ ------+| ?30-59 ?| ?Stage three ?| ? Stage three ? + --+ --+ ------+| ?15-29 ?| ?Stage four ? | ? Stage four ?+ ---+ ---+ -------+| ?<15 (or dialysis) ? ?| ?Stage five ? | ? Stage five ?+ ---+ ---+ -------+ *Each stage assumes the associated GFR level has been in effect for at least three months. ?Stages 1 to 5, with or without kidney disease, indicate chronic kidney disease. Notes: Determination of stages one and two (with eGFR >59mL/min/1.73 m2) requires estimation of kidney damage for at least three months as defined by structural or functional abnormalities of the kidney, manifested by either:Pathological abnormalities or Markers of kidney damage (including abnormalities in the composition of the blood or urine or abnormalities in imaging tests). Lab Interpretation Abnormal (test code = 79580-7) [facility]:13:08 Test Item Value Reference Range Interpretation Comments MAGNESIUM (test code = 7210046218) 2.1 mg/dL 1.7-2.4 Lab Interpretation (test code = Normal 87322-8) [facility] 12:13:08 Test Item Value Reference Range Interpretation Comments PHOSPHORUS (test code = 4398291205) 3.9 mg/dL 2.5-5.0 Lab Interpretation (test code = Normal 07393-8) [facility] (NA, K, CL, CO2, GLUCOSE, BUN, CREATININE, CA)2020-11-10 12:13:08 Test Item Value Reference Range Interpretation Comments NA (test code = 134 mmol/L 135-145 L 2249010289) K (test code = 4.3 mmol/L 3.5-5.0 1214689026) CL (test code = 101 mmol/L 98-108 6666474994) CO2 TOTAL (test code = 31 mmol/L 23-31 6070079392) AGAP (test code = 2-16 3382277771) BUN (test code = 12 mg/dL 7-23 0044140991) GLUCOSE (test code = 162 mg/dL 70-110 H 1965077788) CREATININE (test code = 0.48 mg/dL 0.60-1.25 L 4956709361) CALCIUM (test code = 8.3 mg/dL 8.6-10.6 L 9415921189) eGFR (test code = mL/min/1.73m2 8164826628) PATTI (test code = PATTI) Association of Glomerular Filtration Rate (GFR) and Staging of Kidney Disease* + --+ --+ ------+| GFR (mL/min/1.73 m2) ?| With Kidney Damage ?| ?Without Kidney Damage+ --------+ --------+ +| ?>90 ?| ?Stage one ?| ? Normal ?+ ---+ ---+ -------+| ?60-89 ?| ?Stage two ?| ? Decreased GFR ? + --+ --+ ------+| ?30-59 ?| ?Stage three ?| ? Stage three ? + --+ --+ ------+| ?15-29 ?| ?Stage four ? | ? Stage four ?+ ---+ ---+ -------+| ?<15 (or dialysis) ? ?| ?Stage five ? | ? Stage five ?+ ---+ ---+ -------+ *Each stage assumes the associated GFR level has been in effect for at least three months. ?Stages 1 to 5, with or without kidney disease, indicate chronic kidney disease. Notes: Determination of stages one and two (with eGFR >59mL/min/1.73 m2) requires estimation of kidney damage for at least three months as defined by structural or functional abnormalities of the kidney, manifested by either:Pathological abnormalities or Markers of kidney damage (including abnormalities in the composition of the blood or urine or abnormalities in imaging tests). Lab Interpretation Abnormal (test code = 79306-5) [facility] 12:13:08 Test Item Value Reference Range Interpretation Comments MAGNESIUM (test code = 8708026867) 2.1 mg/dL 1.7-2.4 Lab Interpretation (test code = Normal 95657-1) [facility] 12:13:08 Test Item Value Reference Range Interpretation Comments PHOSPHORUS (test code = 8605170271) 3.9 mg/dL 2.5-5.0 Lab Interpretation (test code = Normal 57159-7) [facility] [id number] 12:06:05 Test Item Value Reference Range Interpretation Comments WBC (test code = 6690-2) See_Comment H [A utomated message] The system [employer] generated this result transmit marcelina reference range : 4.20 - 10.70 10*3/?L. The reference range was not used to interpret this result as normal/abnormal . RBC (test code = 789-8) See_Comment L [Au tomated message] The system [employer] generated this result transmit marcelina reference range : 4.26 - 5.52 10* 6/?L. The reference r ivett was not used to interpret this result as normal/abnormal . HGB (test code = 718-7) 10.0 g/dL 12.2-16.4 L HCT (test code = 4544-3) 30.3 % 38.4-49.3 L MCH (test code = 785-6) 28.7 pg 26.1-32.7 MCV (test code = 787-2) 87.1 fL 81.7-95.6 MCHC (test code = 786-4) 33.0 g/dL 31.2-35.0 PLT (test code = 777-3) See_Comment H [Au tomated message] The system [employer] generated this result transmit marcelina reference range : 150 - 328 10*3/?L. The reference range was not used to interpret this result as normal/abnormal . MPV (test code = 9.6 fL 9.8-13.0 L 61170-2) RDW-CV (test code = 12.9 % 12.1-15.4 788-0) RDW-SD (test code = 41.1 fL 38.5-51.6 99486-4) NRBC x10^3 (test code = <0.01 See_Comment [Au tomated message] 3395244937) The system [employer] generated this result transmit marcelina reference range : 10*3/?L. The reference range was not used to interpret this result as normal/abnormal . NRBC/100 WBC (test code See_Comment [Au tomated message] = 0067286461) The system [employer] generated this result transmit marcelina reference range : 0.0 - 10.0 /100 WBC s. The reference r ivett was not used to interpret this result as normal/abnormal . IPF % (test code = 5580092103) Lab Interpretation (test Abnormal code = 93626-6) [facility] WITHOUT [id number] 12:06:05 Test Item Value Reference Range Interpretation Comments WBC (test code = 6690-2) See_Comment H [A utomated message] The system [employer] generated this result transmit marcelina reference range : 4.20 - 10.70 10*3/?L. The reference range was not used to interpret this result as normal/abnormal . RBC (test code = 789-8) See_Comment L [Au tomated message] The system [employer] generated this result transmit marcelina reference range : 4.26 - 5.52 10* 6/?L. The reference r ivett was not used to interpret this result as normal/abnormal . HGB (test code = 718-7) 10.0 g/dL 12.2-16.4 L HCT (test code = 4544-3) 30.3 % 38.4-49.3 L MCH (test code = 785-6) 28.7 pg 26.1-32.7 MCV (test code = 787-2) 87.1 fL 81.7-95.6 MCHC (test code = 786-4) 33.0 g/dL 31.2-35.0 PLT (test code = 777-3) See_Comment H [Au tomated message] The system [employer] generated this result transmit marcelina reference range : 150 - 328 10*3/?L. The reference range was not used to interpret this result as normal/abnormal . MPV (test code = 9.6 fL 9.8-13.0 L 65650-5) RDW-CV (test code = 12.9 % 12.1-15.4 788-0) RDW-SD (test code = 41.1 fL 38.5-51.6 68383-3) NRBC x10^3 (test code = <0.01 See_Comment [Au tomated message] 3636545987) The system [employer] generated this result transmit marcelina reference range : 10*3/?L. The reference range was not used to interpret this result as normal/abnormal . NRBC/100 WBC (test code See_Comment [Au tomated message] = 6370929720) The system [employer] generated this result transmit marcelina reference range : 0.0 - 10.0 /100 WBC s. The reference r ivett was not used to interpret this result as normal/abnormal . IPF % (test code = 0098040774) Lab Interpretation (test Abnormal code = 97316-7) [facility] WITHOUT [id number] 12:06:05 Test Item Value Reference Range Interpretation Comments WBC (test code = 6690-2) See_Comment H [A utomated message] The system [employer] generated this result transmit marcelina reference range : 4.20 - 10.70 10*3/?L. The reference range was not used to interpret this result as normal/abnormal . RBC (test code = 789-8) See_Comment L [Au tomated message] The system [employer] generated this result transmit marcelina reference range : 4.26 - 5.52 10* 6/?L. The reference r ivett was not used to interpret this result as normal/abnormal . HGB (test code = 718-7) 10.0 g/dL 12.2-16.4 L HCT (test code = 4544-3) 30.3 % 38.4-49.3 L MCH (test code = 785-6) 28.7 pg 26.1-32.7 MCV (test code = 787-2) 87.1 fL 81.7-95.6 MCHC (test code = 786-4) 33.0 g/dL 31.2-35.0 PLT (test code = 777-3) See_Comment H [Au tomated message] The system [employer] generated this result transmit marcelina reference range : 150 - 328 10*3/?L. The reference range was not used to interpret this result as normal/abnormal . MPV (test code = 9.6 fL 9.8-13.0 L 92863-8) RDW-CV (test code = 12.9 % 12.1-15.4 788-0) RDW-SD (test code = 41.1 fL 38.5-51.6 56981-8) NRBC x10^3 (test code = <0.01 See_Comment [Au tomated message] 2187725876) The system [employer] generated this result transmit marcelina reference range : 10*3/?L. The reference range was not used to interpret this result as normal/abnormal . NRBC/100 WBC (test code See_Comment [Au tomated message] = 9811113098) The system [facility] generated this result transmit marcelina reference range : 0.0 - 10.0 /100 WBC s. The reference r ivett was not used to interpret this result as normal/abnormal . IPF % (test code = 9740645354) Lab Interpretation (test Abnormal code = 70842-2) [facility] WITHOUT [id number] 12:06:05 Test Item Value Reference Range Interpretation Comments WBC (test code = 6690-2) See_Comment H [A utomated message] The system [employer] generated this result transmit marcelina reference range : 4.20 - 10.70 10*3/?L. The reference range was not used to interpret this result as normal/abnormal . RBC (test code = 789-8) See_Comment L [Au tomated message] The system [employer] generated this result transmit marcelina reference range : 4.26 - 5.52 10* 6/?L. The reference r ivett was not used to interpret this result as normal/abnormal . HGB (test code = 718-7) 10.0 g/dL 12.2-16.4 L HCT (test code = 4544-3) 30.3 % 38.4-49.3 L MCH (test code = 785-6) 28.7 pg 26.1-32.7 MCV (test code = 787-2) 87.1 fL 81.7-95.6 MCHC (test code = 786-4) 33.0 g/dL 31.2-35.0 PLT (test code = 777-3) See_Comment H [Au tomated message] The system [employer] generated this result transmit marcelina reference range : 150 - 328 10*3/?L. The reference range was not used to interpret this result as normal/abnormal . MPV (test code = 9.6 fL 9.8-13.0 L 28501-4) RDW-CV (test code = 12.9 % 12.1-15.4 788-0) RDW-SD (test code = 41.1 fL 38.5-51.6 73915-0) NRBC x10^3 (test code = <0.01 See_Comment [Au tomated message] 7344011933) The system [employer] generated this result transmit marcelina reference range : 10*3/?L. The reference range was not used to interpret this result as normal/abnormal . NRBC/100 WBC (test code See_Comment [Au tomated message] = 3320722555) The system [employer] generated this result transmit marcelina reference range : 0.0 - 10.0 /100 WBC s. The reference r ivett was not used to interpret this result as normal/abnormal . IPF % (test code = 9602552497) Lab Interpretation (test Abnormal code = 30139-9) [facility] GLUCOSE (AUTOMATED)2020-11-10 10:18:13 Test Item Value Reference Range Interpretation Comments POCT GLU (test code = 9574315709) 135 mg/dL 70-110 H Lab Interpretation (test code = Abnormal 54486-9) [facility] GLUCOSE (AUTOMATED)2020-11-10 10:18:13 Test Item Value Reference Range Interpretation Comments POCT GLU (test code = 5721345955) 135 mg/dL 70-110 H Lab Interpretation (test code = Abnormal 14798-0) [facility] GLUCOSE (AUTOMATED)2020-11-10 10:18:13 Test Item Value Reference Range Interpretation Comments POCT GLU (test code = 6127325563) 135 mg/dL 70-110 H Lab Interpretation (test code = Abnormal 61315-7) [facility] GLUCOSE (AUTOMATED)2020-11-10 10:18:13 Test Item Value Reference Range Interpretation Comments POCT GLU (test code = 5284877301) 135 mg/dL 70-110 H Lab Interpretation (test code = Abnormal 72838-7) [facility]2020-11-10 09:02:48 Test Item Value Reference Range Interpretation Comments POCT GLU (test code = 1069476524) 140 mg/dL 70-110 H Lab Interpretation (test code = Abnormal 84991-0) [facility]2020-11-10 09:02:48 Test Item Value Reference Range Interpretation Comments POCT GLU (test code = 1224966153) 140 mg/dL 70-110 H Lab Interpretation (test code = Abnormal 67618-4) [facility] GLUCOSE (AUTOMATED)2020-11-10 09:02:48 Test Item Value Reference Range Interpretation Comments POCT GLU (test code = 4748887944) 140 mg/dL 70-110 H Lab Interpretation (test code = Abnormal 17148-4) [facility] GLUCOSE (AUTOMATED)2020-11-10 09:02:48 Test Item Value Reference Range Interpretation Comments POCT GLU (test code = 2816172375) 140 mg/dL 70-110 H Lab Interpretation (test code = Abnormal 02981-2) [facility] 07:53:01 Test Item Value Reference Range Interpretation Comments POCT GLU (test code = 8413362267) 165 mg/dL 70-110 H Lab Interpretation (test code = Abnormal 61889-3) [facility] GLUCOSE (AUTOMATED)2020-11-10 07:53:01 Test Item Value Reference Range Interpretation Comments POCT GLU (test code = 3557870747) 165 mg/dL 70-110 H Lab Interpretation (test code = Abnormal 14502-6) [facility]2020-11-10 07:53:01 Test Item Value Reference Range Interpretation Comments POCT GLU (test code = 8764375199) 165 mg/dL 70-110 H Lab Interpretation (test code = Abnormal 67308-0) [facility] GLUCOSE (AUTOMATED)2020-11-10 07:53:01 Test Item Value Reference Range Interpretation Comments POCT GLU (test code = 9032639506) 165 mg/dL 70-110 H Lab Interpretation (test code = Abnormal 95052-1) [facility] GLUCOSE (AUTOMATED)2020-11-10 07:05:03 Test Item Value Reference Range Interpretation Comments POCT GLU (test code = 3561109849) 127 mg/dL 70-110 H Lab Interpretation (test code = Abnormal 71513-1) [facility] GLUCOSE (AUTOMATED)2020-11-10 07:05:03 Test Item Value Reference Range Interpretation Comments POCT GLU (test code = 4705422911) 127 mg/dL 70-110 H Lab Interpretation (test code = Abnormal 30815-7) [facility] GLUCOSE (AUTOMATED)2020-11-10 07:05:03 Test Item Value Reference Range Interpretation Comments POCT GLU (test code = 2292913985) 127 mg/dL 70-110 H Lab Interpretation (test code = Abnormal 35879-5) [facility] GLUCOSE (AUTOMATED)2020-11-10 07:05:03 Test Item Value Reference Range Interpretation Comments POCT GLU (test code = 1952854713) 127 mg/dL 70-110 H Lab Interpretation (test code = Abnormal 06698-9) [facility] GLUCOSE (AUTOMATED)2020-11-10 06:07:30 Test Item Value Reference Range Interpretation Comments POCT GLU (test code = 3275559336) 164 mg/dL 70-110 H Lab Interpretation (test code = Abnormal 65507-9) [facility] GLUCOSE (AUTOMATED)2020-11-10 06:07:30 Test Item Value Reference Range Interpretation Comments POCT GLU (test code = 9163116952) 164 mg/dL 70-110 H Lab Interpretation (test code = Abnormal 22960-1) [facility] GLUCOSE (AUTOMATED)2020-11-10 06:07:30 Test Item Value Reference Range Interpretation Comments POCT GLU (test code = 7139050898) 164 mg/dL 70-110 H Lab Interpretation (test code = Abnormal 90663-0) [facility] GLUCOSE (AUTOMATED)2020-11-10 06:07:30 Test Item Value Reference Range Interpretation Comments POCT GLU (test code = 1001638795) 164 mg/dL 70-110 H Lab Interpretation (test code = Abnormal 65174-1) [facility] GLUCOSE (AUTOMATED)2020-11-10 04:53:08 Test Item Value Reference Range Interpretation Comments POCT GLU (test code = 5482197258) 203 mg/dL 70-110 H Lab Interpretation (test code = Abnormal 55690-1) [facility] GLUCOSE (AUTOMATED)2020-11-10 04:53:08 Test Item Value Reference Range Interpretation Comments POCT GLU (test code = 7906781926) 203 mg/dL 70-110 H Lab Interpretation (test code = Abnormal 48003-6) [facility] GLUCOSE (AUTOMATED)2020-11-10 04:53:08 Test Item Value Reference Range Interpretation Comments POCT GLU (test code = 2296468697) 203 mg/dL 70-110 H Lab Interpretation (test code = Abnormal 24107-4) [facility] GLUCOSE (AUTOMATED)2020-11-10 04:53:08 Test Item Value Reference Range Interpretation Comments POCT GLU (test code = 6458485073) 203 mg/dL 70-110 H Lab Interpretation (test code = Abnormal 85070-6) [facility] GLUCOSE (AUTOMATED)2020-11-10 03:58:21 Test Item Value Reference Range Interpretation Comments POCT GLU (test code = 2774296121) 233 mg/dL 70-110 H Lab Interpretation (test code = Abnormal 92462-2) [facility] GLUCOSE (AUTOMATED)2020-11-10 03:58:21 Test Item Value Reference Range Interpretation Comments POCT GLU (test code = 1982266176) 233 mg/dL 70-110 H Lab Interpretation (test code = Abnormal 82239-8) [facility] GLUCOSE (AUTOMATED)2020-11-10 03:58:21 Test Item Value Reference Range Interpretation Comments POCT GLU (test code = 8319980010) 233 mg/dL 70-110 H Lab Interpretation (test code = Abnormal 78602-6) [facility] GLUCOSE (AUTOMATED)2020-11-10 03:58:21 Test Item Value Reference Range Interpretation Comments POCT GLU (test code = 7533443845) 233 mg/dL 70-110 H Lab Interpretation (test code = Abnormal 08649-9) [facility] GLUCOSE (AUTOMATED)2020-11-10 02:29:47 Test Item Value Reference Range Interpretation Comments POCT GLU (test code = 3400337971) 239 mg/dL 70-110 H Lab Interpretation (test code = Abnormal 26530-7) [facility] GLUCOSE (AUTOMATED)2020-11-10 02:29:47 Test Item Value Reference Range Interpretation Comments POCT GLU (test code = 5823396132) 239 mg/dL 70-110 H Lab Interpretation (test code = Abnormal 82438-9) [facility] GLUCOSE (AUTOMATED)2020-11-10 02:29:47 Test Item Value Reference Range Interpretation Comments POCT GLU (test code = 7464641840) 239 mg/dL 70-110 H Lab Interpretation (test code = Abnormal 51668-6) [facility] GLUCOSE (AUTOMATED)2020-11-10 02:29:47 Test Item Value Reference Range Interpretation Comments POCT GLU (test code = 0721490826) 239 mg/dL 70-110 H Lab Interpretation (test code = Abnormal 66615-3) [facility] GLUCOSE (AUTOMATED)2020-11-10 01:55:50 Test Item Value Reference Range Interpretation Comments POCT GLU (test code = 7067631671) 198 mg/dL 70-110 H Lab Interpretation (test code = Abnormal 22014-4) [facility] GLUCOSE (AUTOMATED)2020-11-10 01:55:50 Test Item Value Reference Range Interpretation Comments POCT GLU (test code = 1472089179) 198 mg/dL 70-110 H Lab Interpretation (test code = Abnormal 08299-6) [facility] GLUCOSE (AUTOMATED)2020-11-10 01:55:50 Test Item Value Reference Range Interpretation Comments POCT GLU (test code = 2100216968) 198 mg/dL 70-110 H Lab Interpretation (test code = Abnormal 46531-3) [facility] GLUCOSE (AUTOMATED)2020-11-10 01:55:50 Test Item Value Reference Range Interpretation Comments POCT GLU (test code = 7266960461) 198 mg/dL 70-110 H Lab Interpretation (test code = Abnormal 17565-2) [facility] GLUCOSE (AUTOMATED)2020-11-09 22:55:22 Test Item Value Reference Range Interpretation Comments POCT GLU (test code = 9720071747) 118 mg/dL 70-110 H Lab Interpretation (test code = Abnormal 23109-1) [facility] GLUCOSE (AUTOMATED)2020-11-09 22:55:22 Test Item Value Reference Range Interpretation Comments POCT GLU (test code = 2212394277) 118 mg/dL 70-110 H Lab Interpretation (test code = Abnormal 47225-9) [facility] GLUCOSE (AUTOMATED)2020-11-09 22:55:22 Test Item Value Reference Range Interpretation Comments POCT GLU (test code = 1050508513) 118 mg/dL 70-110 H Lab Interpretation (test code = Abnormal 94911-4) [facility] GLUCOSE (AUTOMATED)2020-11-09 22:55:22 Test Item Value Reference Range Interpretation Comments POCT GLU (test code = 4838123865) 118 mg/dL 70-110 H Lab Interpretation (test code = Abnormal 31937-8) [facility] GLUCOSE (AUTOMATED)2020-11-09 22:00:38 Test Item Value Reference Range Interpretation Comments POCT GLU (test code = 0499265349) 76 mg/dL 70-110 Lab Interpretation (test code = Normal 06742-8) [facility] GLUCOSE (AUTOMATED)2020-11-09 22:00:38 Test Item Value Reference Range Interpretation Comments POCT GLU (test code = 4648589288) 76 mg/dL 70-110 Lab Interpretation (test code = Normal 68098-0) [facility] GLUCOSE (AUTOMATED)2020-11-09 22:00:38 Test Item Value Reference Range Interpretation Comments POCT GLU (test code = 1106498583) 76 mg/dL 70-110 Lab Interpretation (test code = Normal 89996-7) [facility] GLUCOSE (AUTOMATED)2020-11-09 22:00:38 Test Item Value Reference Range Interpretation Comments POCT GLU (test code = 3043704423) 76 mg/dL 70-110 Lab Interpretation (test code = Normal 47341-9) [facility] GLUCOSE (AUTOMATED)2020-11-09 21:16:47 Test Item Value Reference Range Interpretation Comments POCT GLU (test code = 8260623956) 81 mg/dL 70-110 Lab Interpretation (test code = Normal 47915-1) [facility] GLUCOSE (AUTOMATED)2020-11-09 21:16:47 Test Item Value Reference Range Interpretation Comments POCT GLU (test code = 1434315978) 81 mg/dL 70-110 Lab Interpretation (test code = Normal 85353-6) [facility] GLUCOSE (AUTOMATED)2020-11-09 21:16:47 Test Item Value Reference Range Interpretation Comments POCT GLU (test code = 5799823903) 81 mg/dL 70-110 Lab Interpretation (test code = Normal 99706-6) [facility] GLUCOSE (AUTOMATED)2020-11-09 21:16:47 Test Item Value Reference Range Interpretation Comments POCT GLU (test code = 3513393546) 81 mg/dL 70-110 Lab Interpretation (test code = Normal 07836-6) [facility] GLUCOSE (AUTOMATED)2020-11-09 20:15:37 Test Item Value Reference Range Interpretation Comments POCT GLU (test code = 9483226477) 165 mg/dL 70-110 H Lab Interpretation (test code = Abnormal 89280-9) [facility] GLUCOSE (AUTOMATED)2020-11-09 20:15:37 Test Item Value Reference Range Interpretation Comments POCT GLU (test code = 3524660002) 165 mg/dL 70-110 H Lab Interpretation (test code = Abnormal 77799-6) [facility] GLUCOSE (AUTOMATED)2020-11-09 20:15:37 Test Item Value Reference Range Interpretation Comments POCT GLU (test code = 7115274611) 165 mg/dL 70-110 H Lab Interpretation (test code = Abnormal 47943-9) [facility] GLUCOSE (AUTOMATED)2020-11-09 20:15:37 Test Item Value Reference Range Interpretation Comments POCT GLU (test code = 4902245220) 165 mg/dL 70-110 H Lab Interpretation (test code = Abnormal 91916-5) [facility] GLUCOSE (AUTOMATED)2020-11-09 19:21:21 Test Item Value Reference Range Interpretation Comments POCT GLU (test code = 7414896781) 220 mg/dL 70-110 H Lab Interpretation (test code = Abnormal 92343-6) [facility] GLUCOSE (AUTOMATED)2020-11-09 19:21:21 Test Item Value Reference Range Interpretation Comments POCT GLU (test code = 0314702570) 220 mg/dL 70-110 H Lab Interpretation (test code = Abnormal 52895-5) [facility] GLUCOSE (AUTOMATED)2020-11-09 19:21:21 Test Item Value Reference Range Interpretation Comments POCT GLU (test code = 8196098221) 220 mg/dL 70-110 H Lab Interpretation (test code = Abnormal 46545-0) [facility] GLUCOSE (AUTOMATED)2020-11-09 19:21:21 Test Item Value Reference Range Interpretation Comments POCT GLU (test code = 8433089420) 220 mg/dL 70-110 H Lab Interpretation (test code = Abnormal 43884-1) [facility] GLUCOSE (AUTOMATED)2020-11-09 19:21:21 Test Item Value Reference Range Interpretation Comments POCT GLU (test code = 1267718696) 220 mg/dL 70-110 H Lab Interpret[facility]test code = Abnormal 76837-5[facility]14:03 Test Item Value Reference Range Interpretation Comments POCT GLU (test code = 3357269284) 275 mg/dL 70-110 H Lab Interpretation (test code = Abnormal 02959-5) [facility] GLUCOSE (AUTOMATED)2020-11-09 18:14:03 Test Item Value Reference Range Interpretation Comments POCT GLU (test code = 3633951690) 275 mg/dL 70-110 H Lab Interpretation (test code = Abnormal 08765-8) [facility] GLUCOSE (AUTOMATED)2020-11-09 18:14:03 Test Item Value Reference Range Interpretation Comments POCT GLU (test code = 2713528711) 275 mg/dL 70-110 H Lab Interpretation (test code = Abnormal 03080-8[facility]:14:03 Test Item Value Reference Range Interpretation Comments POCT GLU (test code = 3570031468) 275 mg/dL 70-110 H Lab Interpretation (test code = Abnormal 55266-9) [facility] GLUCOSE (AUTOMATED)2020-11-09 18:14:03 Test Item Value Reference Range Interpretation Comments POCT GLU (test code = 5040737537) 275 mg/dL 70-110 H Lab Interpretation (test code = Abnormal 39659-2) [facility] 17:18:39 Test Item Value Reference Range Interpretation Comments POCT GLU (test code = 5307136779) 300 mg/dL 70-110 H Lab Interpretation (test code = Abnormal 07659-9) [facility] GLUCOSE (AUTOMATED)2020-11-09 17:18:39 Test Item Value Reference Range Interpretation Comments POCT GLU (test code = 5180854778) 300 mg/dL 70-110 H Lab Interpretation (test code = Abnormal 30485-6) [facility] GLUCOSE (AUTOMATED)2020-11-09 17:18:39 Test Item Value Reference Range Interpretation Comments POCT GLU (test code = 1941849950) 300 mg/dL 70-110 H Lab Interpretation (test code = Abnormal 38182-6) [facility] GLUCOSE (AUTOMATED)2020-11-09 17:18:39 Test Item Value Reference Range Interpretation Comments POCT GLU (test code = 0317626509) 300 mg/dL 70-110 H Lab Interpretation (test code = Abnormal 00397-2) [facility] GLUCOSE (AUTOMATED)2020-11-09 17:18:39 Test Item Value Reference Range Interpretation Comments POCT GLU (test code = 0525805056) 300 mg/dL 70-110 H Lab Interpretation (test code = Abnormal 80623-1) [facility] GLUCOSE (AUTOMATED)2020-11-09 16:10:57 Test Item Value Reference Range Interpretation Comments POCT GLU (test code = 4416137735) 275 mg/dL 70-110 H Lab Interpretation (test code = Abnormal 46181-8) [facility] GLUCOSE (AUTOMATED)2020-11-09 16:10:57 Test Item Value Reference Range Interpretation Comments POCT GLU (test code = 2852752419) 275 mg/dL 70-110 H Lab Interpretation (test code = Abnormal 73298-9) [facility] GLUCOSE (AUTOMATED)2020-11-09 16:10:57 Test Item Value Reference Range Interpretation Comments POCT GLU (test code = 2954486010) 275 mg/dL 70-110 H Lab Interpretation (test code = Abnormal 94679-0) [facility] 16:10:57 Test Item Value Reference Range Interpretation Comments POCT GLU (test code = 6838268822) 275 mg/dL 70-110 H Lab Interpretation (test code = Abnormal 20871-8) [facility] GLUCOSE (AUTOMATED)2020-11-09 16:10:57 Test Item Value Reference Range Interpretation Comments POCT GLU (test code = 0736668855) 275 mg/dL 70-110 H Lab Interpretation (test code = Abnormal 02579-8) [facility] GLUCOSE (AUTOMATED)2020-11-09 15:18:34 Test Item Value Reference Range Interpretation Comments POCT GLU (test code = 0023415204) 280 mg/dL 70-110 H Lab Interpretation (test code = Abnormal 61450-5) [facility] GLUCOSE (AUTOMATED)2020-11-09 15:18:34 Test Item Value Reference Range Interpretation Comments POCT GLU (test code = 2356561426) 280 mg/dL 70-110 H Lab Interpretation (test code = Abnormal 22834-8) [facility] 15:18:34 Test Item Value Reference Range Interpretation Comments POCT GLU (test code = 4540542217) 280 mg/dL 70-110 H Lab Interpretation (test code = Abnormal 06747-8) [facility] GLUCOSE (AUTOMATED)2020-11-09 15:18:34 Test Item Value Reference Range Interpretation Comments POCT GLU (test code = 6209834989) 280 mg/dL 70-110 H Lab Interpretation (test code = Abnormal 64467-8) [facility] 15:18:34 Test Item Value Reference Range Interpretation Comments POCT GLU (test code = 3998198664) 280 mg/dL 70-110 H Lab Interpretation (test code = Abnormal 68716-3) [facility]2020-11-[facility] 12:01:07 Test Item Value Reference Range Interpretation Comments POCT GLU (test code = 2848853834) 134 mg/dL 70-110 H Lab Interpretation (test code = Abnormal 98682-6) [facility] GLUCOSE (AUTOMATED)2020-11-09 12:01:07 Test Item Value Reference Range Interpretation Comments POCT GLU (test code = 9812518771) 134 mg/dL 70-110 H Lab Interpretation (test code = Abnormal 05063-1) [facility] GLUCOSE (AUTOMATED)2020-11-09 12:01:07 Test Item Value Reference Range Interpretation Comments POCT GLU (test code = 7370271814) 134 mg/dL 70-110 H Lab Interpretation (test code = Abnormal 34186-6) [facility] GLUCOSE (AUTOMATED)2020-11-09 12:01:07 Test Item Value Reference Range Interpretation Comments POCT GLU (test code = 3910296974) 134 mg/dL 70-110 H Lab Interpretation (test code = Abnormal 73461-5) [facility] GLUCOSE (AUTOMATED)2020-11-09 12:01:07 Test Item Value Reference Range Interpretation Comments POCT GLU (test code = 9860008683) 134 mg/dL 70-110 H Lab Interpretation (test code = Abnormal 66785-0) [facility] METABOLIC PANEL (NA, K, CL, CO2, GLUCOSE, BUN, CREATININE, CA)2020-11-09 10:25:35 Test Item Value Reference Range Interpretation Comments NA (test code = 134 mmol/L 135-145 L 2528940255) K (test code = 3.7 mmol/L 3.5-5.0 9303956084) CL (test code = 101 mmol/L 98-108 5346377214) CO2 TOTAL (test code = 28 mmol/L 23-31 1360456251) AGAP (test code = 2-16 0762047235) BUN (test code = 17 mg/dL 7-23 1598964137) GLUCOSE (test code = 123 mg/dL 70-110 H 3961362810) CREATININE (test code = 0.53 mg/dL 0.60-1.25 L 3332548605) CALCIUM (test code = 8.4 mg/dL 8.6-10.6 L 5748875828) eGFR (test code = mL/min/1.73m2 2358973915) PATTI (test code = PATTI) Association of Glomerular Filtration Rate (GFR) and Staging of Kidney Disease* + --+ --+ ------+| GFR (mL/min/1.73 m2) ?| With Kidney Damage ?| ?Without Kidney Damage+ --------+ --------+ +| ?>90 ?| ?Stage one ?| ? Normal ?+ ---+ ---+ -------+| ?60-89 ?| ?Stage two ?| ? Decreased GFR ? + --+ --+ ------+| ?30-59 ?| ?Stage three ?| ? Stage three ? + --+ --+ ------+| ?15-29 ?| ?Stage four ? | ? Stage four ?+ ---+ ---+ -------+| ?<15 (or dialysis) ? ?| ?Stage five ? | ? Stage five ?+ ---+ ---+ -------+ *Each stage assumes the associated GFR level has been in effect for at least three months. ?Stages 1 to 5, with or without kidney disease, indicate chronic kidney disease. Notes: Determination of stages one and two (with eGFR >59mL/min/1.73 m2) requires estimation of kidney damage for at least three months as defined by structural or functional abnormalities of the kidney, manifested by either:Pathological abnormalities or Markers of kidney damage (including abnormalities in the composition of the blood or urine or abnormalities in imaging tests). Lab Interpretation Abnormal (test code = 97258-6) [facility] Test Item Value Reference Range Interpretation Comments MAGNESIUM (test code = 5639974334) 2.4 mg/dL 1.7-2.4 Lab Interpretation (test code = Normal 43482-3) [facility]:25[facility] Test Item Value Reference Range Interpretation Comments PHOSPHORUS (test code = 4192715792) 4.4 mg/dL 2.5-5.0 Lab Interpretation (test code = Normal 00313-9) [facility] (NA, K, CL, CO2, GLUCOSE, BUN, CREATININE, CA)2020-11-09 10:25:35 Test Item Value Reference Range Interpretation Comments NA (test code = 134 mmol/L 135-145 L 4483504902) K (test code = 3.7 mmol/L 3.5-5.0 8396066544) CL (test code = 101 mmol/L 98-108 9105127377) CO2 TOTAL (test code = 28 mmol/L 23-31 8875132244) AGAP (test code = 2-16 8677934543) BUN (test code = 17 mg/dL 7-23 6167520997) GLUCOSE (test code = 123 mg/dL 70-110 H 1223686351) CREATININE (test code = 0.53 mg/dL 0.60-1.25 L 3479290095) CALCIUM (test code = 8.4 mg/dL 8.6-10.6 L 7410792451) eGFR (test code = mL/min/1.73m2 3920280423) PATTI (test code = PATTI) Association of Glomerular Filtration Rate (GFR) and Staging of Kidney Disease* + --+ --+ ------+| GFR (mL/min/1.73 m2) ?| With Kidney Damage ?| ?Without Kidney Damage+ --------+ --------+ +| ?>90 ?| ?Stage one ?| ? Normal ?+ ---+ ---+ -------+| ?60-89 ?| ?Stage two ?| ? Decreased GFR ? + --+ --+ ------+| ?30-59 ?| ?Stage three ?| ? Stage three ? + --+ --+ ------+| ?15-29 ?| ?Stage four ? | ? Stage four ?+ ---+ ---+ -------+| ?<15 (or dialysis) ? ?| ?Stage five ? | ? Stage five ?+ ---+ ---+ -------+ *Each stage assumes the associated GFR level has been in effect for at least three months. ?Stages 1 to 5, with or without kidney disease, indicate chronic kidney disease. Notes: Determination of stages one and two (with eGFR >59mL/min/1.73 m2) requires estimation of kidney damage for at least three months as defined by structural or functional abnormalities of the kidney, manifested by either:Pathological abnormalities or Markers of kidney damage (including abnormalities in the composition of the blood or urine or abnormalities in imaging tests). Lab Interpretation Abnormal (test code = 68426-8) [facility] Test Item Value Reference Range Interpretation Comments MAGNESIUM (test code = 3724734371) 2.4 mg/dL 1.7-2.4 Lab Interpretation (test code = Normal 41811-7) [facility]:25:35 Test Item Value Reference Range Interpretation Comments PHOSPHORUS (test code = 6738422328) 4.4 mg/dL 2.5-5.0 Lab Interpretation (test code = Normal 79283-1) [facility] (NA, K, CL, CO2, GLUCOSE, BUN, CREATININE, CA)2020-11-09 10:25:35 Test Item Value Reference Range Interpretation Comments NA (test code = 134 mmol/L 135-145 L 1254650318) K (test code = 3.7 mmol/L 3.5-5.0 7819904724) CL (test code = 101 mmol/L 98-108 6245774541) CO2 TOTAL (test code = 28 mmol/L 23-31 5815889140) AGAP (test code = 2-16 2131236052) BUN (test code = 17 mg/dL 7-23 6096394716) GLUCOSE (test code = 123 mg/dL 70-110 H 8738733393) CREATININE (test code = 0.53 mg/dL 0.60-1.25 L 0194751579) CALCIUM (test code = 8.4 mg/dL 8.6-10.6 L 0447937900) eGFR (test code = mL/min/1.73m2 0390758233) PATTI (test code = PATTI) Association of Glomerular Filtration Rate (GFR) and Staging of Kidney Disease* + --+ --+ ------+| GFR (mL/min/1.73 m2) ?| With Kidney Damage ?| ?Without Kidney Damage+ --------+ --------+ +| ?>90 ?| ?Stage one ?| ? Normal ?+ ---+ ---+ -------+| ?60-89 ?| ?Stage two ?| ? Decreased GFR ? + --+ --+ ------+| ?30-59 ?| ?Stage three ?| ? Stage three ? + --+ --+ ------+| ?15-29 ?| ?Stage four ? | ? Stage four ?+ ---+ ---+ -------+| ?<15 (or dialysis) ? ?| ?Stage five ? | ? Stage five ?+ ---+ ---+ -------+ *Each stage assumes the associated GFR level has been in effect for at least three months. ?Stages 1 to 5, with or without kidney disease, indicate chronic kidney disease. Notes: Determination of stages one and two (with eGFR >59mL/min/1.73 m2) requires estimation of kidney damage for at least three months as defined by structural or functional abnormalities of the kidney, manifested by either:Pathological abnormalities or Markers of kidney damage (including abnormalities in the composition of the blood or urine or abnormalities in imaging tests). Lab Interpretation Abnormal (test code = 63464-2) [facility] Test Item Value Reference Range Interpretation Comments MAGNESIUM (test code = 0993279391) 2.4 mg/dL 1.7-2.4 Lab Interpretation (test code = Normal 55699-3) [facility]:25:35 Test Item Value Reference Range Interpretation Comments PHOSPHORUS (test code = 8847662977) 4.4 mg/dL 2.5-5.0 Lab Interpretation (test code = Normal 29552-8) [facility] (NA, K, CL, CO2, GLUCOSE, BUN, CREATININE, CA)2020-11-09 10:25:35 Test Item Value Reference Range Interpretation Comments NA (test code = 134 mmol/L 135-145 L 6331290728) K (test code = 3.7 mmol/L 3.5-5.0 5265365583) CL (test code = 101 mmol/L 98-108 3126561030) CO2 TOTAL (test code = 28 mmol/L 23-31 7772266633) AGAP (test code = 2-16 3244403167) BUN (test code = 17 mg/dL 7-23 0251244830) GLUCOSE (test code = 123 mg/dL 70-110 H 8896369814) CREATININE (test code = 0.53 mg/dL 0.60-1.25 L 9218204336) CALCIUM (test code = 8.4 mg/dL 8.6-10.6 L 2697355255) eGFR (test code = mL/min/1.73m2 4972206098) PATTI (test code = PATTI) Association of Glomerular Filtration Rate (GFR) and Staging of Kidney Disease* + --+ --+ ------+| GFR (mL/min/1.73 m2) ?| With Kidney Damage ?| ?Without Kidney Damage+ --------+ --------+ +| ?>90 ?| ?Stage one ?| ? Normal ?+ ---+ ---+ -------+| ?60-89 ?| ?Stage two ?| ? Decreased GFR ? + --+ --+ ------+| ?30-59 ?| ?Stage three ?| ? Stage three ? + --+ --+ ------+| ?15-29 ?| ?Stage four ? | ? Stage four ?+ ---+ ---+ -------+| ?<15 (or dialysis) ? ?| ?Stage five ? | ? Stage five ?+ ---+ ---+ -------+ *Each stage assumes the associated GFR level has been in effect for at least three months. ?Stages 1 to 5, with or without kidney disease, indicate chronic kidney disease. Notes: Determination of stages one and two (with eGFR >59mL/min/1.73 m2) requires estimation of kidney damage for at least three months as defined by structural or functional abnormalities of the kidney, manifested by either:Pathological abnormalities or Markers of kidney damage (including abnormalities in the composition of the blood or urine or abnormalities in imaging tests). Lab Interpretation Abnormal (test code = 75134-1) [facility] Test Item Value Reference Range Interpretation Comments MAGNESIUM (test code = 8543906457) 2.4 mg/dL 1.7-2.4 Lab Interpretation (test code = Normal 82375-9) [facility]:25:35 Test Item Value Reference Range Interpretation Comments PHOSPHORUS (test code = 9560652162) 4.4 mg/dL 2.5-5.0 Lab Interpretation (test code = Normal 48726-0) [facility] (NA, K, CL, CO2, GLUCOSE, BUN, CREATININE, CA)2020-11-09 10:25:35 Test Item Value Reference Range Interpretation Comments NA (test code = 134 mmol/L 135-145 L 7980563046) K (test code = 3.7 mmol/L 3.5-5.0 6078544720) CL (test code = 101 mmol/L 98-108 8811924685) CO2 TOTAL (test code = 28 mmol/L 23-31 1290325021) AGAP (test code = 2-16 7551159124) BUN (test code = 17 mg/dL 7-23 2184009439) GLUCOSE (test code = 123 mg/dL 70-110 H 4878060943) CREATININE (test code = 0.53 mg/dL 0.60-1.25 L 0335713435) CALCIUM (test code = 8.4 mg/dL 8.6-10.6 L 2485399800) eGFR (test code = mL/min/1.73m2 6338778856) PATTI (test code = PATTI) Association of Glomerular Filtration Rate (GFR) and Staging of Kidney Disease* + --+ --+ ------+| GFR (mL/min/1.73 m2) ?| With Kidney Damage ?| ?Without Kidney Damage+ --------+ --------+ +| ?>90 ?| ?Stage one ?| ? Normal ?+ ---+ ---+ -------+| ?60-89 ?| ?Stage two ?| ? Decreased GFR ? + --+ --+ ------+| ?30-59 ?| ?Stage three ?| ? Stage three ? + --+ --+ ------+| ?15-29 ?| ?Stage four ? | ? Stage four ?+ ---+ ---+ -------+| ?<15 (or dialysis) ? ?| ?Stage five ? | ? Stage five ?+ ---+ ---+ -------+ *Each stage assumes the associated GFR level has been in effect for at least three months. ?Stages 1 to 5, with or without kidney disease, indicate chronic kidney disease. Notes: Determination of stages one and two (with eGFR >59mL/min/1.73 m2) requires estimation of kidney damage for at least three months as defined by structural or functional abnormalities of the kidney, manifested by either:Pathological abnormalities or Markers of kidney damage (including abnormalities in the composition of the blood or urine or abnormalities in imaging tests). Lab Interpretation Abnormal (test code = 29233-8) [facility]:25:35 Test Item Value Reference Range Interpretation Comments MAGNESIUM (test code = 6040943715) 2.4 mg/dL 1.7-2.4 Lab Interpretation (test code = Normal 82665-1) [facility]:25:35 Test Item Value Reference Range Interpretation Comments PHOSPHORUS (test code = 3195213206) 4.4 mg/dL 2.5-5.0 Lab Interpretation (test code = Normal 61572-0) [facility] GLUCOSE (AUTOMATED)2020-11-09 10:07:53 Test Item Value Reference Range Interpretation Comments POCT GLU (test code = 6255053199) 132 mg/dL 70-110 H Lab Interpretation (test code = Abnormal 26864-2) [facility] GLUCOSE (AUTOMATED)2020-11-09 10:07:53 Test Item Value Reference Range Interpretation Comments POCT GLU (test code = 4761008744) 132 mg/dL 70-110 H Lab Interpretation (test code = Abnormal 45762-5) [facility] GLUCOSE (AUTOMATED)2020-11-09 10:07:53 Test Item Value Reference Range Interpretation Comments POCT GLU (test code = 0820754827) 132 mg/dL 70-110 H Lab Interpretation (test code = Abnormal 81044-1) [facility] GLUCOSE (AUTOMATED)2020-11-09 10:07:53 Test Item Value Reference Range Interpretation Comments POCT GLU (test code = 3848253258) 132 mg/dL 70-110 H Lab Interpretation (test code = Abnormal 98631-8) [facility] GLUCOSE (AUTOMATED)2020-11-09 10:07:53 Test Item Value Reference Range Interpretation Comments POCT GLU (test code = 0019893418) 132 mg/dL 70-110 H Lab Interpretation (test code = Abnormal 67098-6) [facility] WITH [id number] 09:56:51 Test Item Value Reference Range Interpretation Comments WBC (test code = See_Comment H [Automated 6690-2) message] The sy stem which generated this result transmitted reference range : 4.20 - 10.70 10*3/?L. The reference range was not used to interpret this result as normal/abnormal . RBC (test code = See_Comment L [Automated 789-8) message] The sy stem which generated this result transmitted reference range : 4.26 - 5.52 10*6/?L. The reference range was not used to interpret this result as normal/abnormal . HGB (test code = 9.5 g/dL 12.2-16.4 L 718-7) HCT (test code = 28.7 % 38.4-49.3 L 4544-3) MCV (test code = 86.4 fL 81.7-95.6 787-2) MCH (test code = 28.6 pg 26.1-32.7 785-6) MCHC (test code = 33.1 g/dL 31.2-35.0 786-4) RDW-SD (test code = 40.2 fL 38.5-51.6 95258-8) RDW-CV (test code = 12.8 % 12.1-15.4 788-0) PLT (test code = See_Comment H [Automated 777-3) message] The sy stem which generated this result transmitted reference range : 150 - 328 10*3/ ?L. The reference r ivett was not used to interpret this result as normal/abnormal . MPV (test code = 9.4 fL 9.8-13.0 L 71645-0) NRBC/100 WBC (test See_Comment [Automat ed code = [id number]) message] The system which generated this result transmitted reference range : 0.0 - 10.0 /100 WBCs. The refer ence range was not u sed to interpret th is result as normal/abnormal . NRBC x10^3 (test code <0.01 See_Comment [Auto mated = 3363552910) message] The s ystem which generated this result transmitted reference range : 10*3/?L. The reference range was not used to interpret this result as normal/abnormal . GRAN MAT (NEUT) % 73.4 % (test code = 770-8) IMM GRAN % (test code 1.00 % = 8333264314) LYMPH % (test code = 16.6 % 736-9) MONO % (test code = 7.5 % 5905-5) EOS % (test code = 1.3 % 713-8) BASO % (test code = 0.2 % 706-2) GRAN MAT x10^3(ANC) 9.83 10*3/uL 1.99-6.95 H (test code = 5071493062) IMM GRAN x10^3 (test 0.13 10*3/uL 0.00-0.06 H code = 2541108438) LYMPH x10^3 (test code 2.23 10*3/uL 1.09-3.23 = 731-0) MONO x10^3 (test code 1.01 10*3/uL 0.36-1.02 = 742-7) EOS x10^3 (test code = 0.17 10*3/uL 0.06-0.53 711-2) BASO x10^3 (test code 0.03 10*3/uL 0.01-0.09 = 704-7) Lab Interpretation Abnormal (test code = 60636-7) [facility] WITH [id number] 09:56:51 Test Item Value Reference Range Interpretation Comments WBC (test code = See_Comment H [Automated 6690-2) message] The sy stem which generated this result transmitted reference range : 4.20 - 10.70 10*3/?L. The reference range was not used to interpret this result as normal/abnormal . RBC (test code = See_Comment L [Automated 789-8) message] The sy stem which generated this result transmitted reference range : 4.26 - 5.52 10*6/?L. The reference range was not used to interpret this result as normal/abnormal . HGB (test code = 9.5 g/dL 12.2-16.4 L 718-7) HCT (test code = 28.7 % 38.4-49.3 L 4544-3) MCV (test code = 86.4 fL 81.7-95.6 787-2) MCH (test code = 28.6 pg 26.1-32.7 785-6) MCHC (test code = 33.1 g/dL 31.2-35.0 786-4) RDW-SD (test code = 40.2 fL 38.5-51.6 15794-4) RDW-CV (test code = 12.8 % 12.1-15.4 788-0) PLT (test code = See_Comment H [Automated 777-3) message] The sy stem which generated this result transmitted reference range : 150 - 328 10*3/ ?L. The reference r ivett was not used to interpret this result as normal/abnormal . MPV (test code = 9.4 fL 9.8-13.0 L 70569-5) NRBC/100 WBC (test See_Comment [Automat ed code = 1221320467) message] The system which generated this result transmitted reference range : 0.0 - 10.0 /100 WBCs. The refer ence range was not u sed to interpret th is result as normal/abnormal . NRBC x10^3 (test code <0.01 See_Comment [Auto mated = 9388083300) message] The s ystem which generated this result transmitted reference range : 10*3/?L. The reference range was not used to interpret this result as normal/abnormal . GRAN MAT (NEUT) % 73.4 % (test code = 770-8) IMM GRAN % (test code 1.00 % = 8650428327) LYMPH % (test code = 16.6 % 736-9) MONO % (test code = 7.5 % 5905-5) EOS % (test code = 1.3 % 713-8) BASO % (test code = 0.2 % 706-2) GRAN MAT x10^3(ANC) 9.83 10*3/uL 1.99-6.95 H (test code = 5910410408) IMM GRAN x10^3 (test 0.13 10*3/uL 0.00-0.06 H code = 7676446250) LYMPH x10^3 (test code 2.23 10*3/uL 1.09-3.23 = 731-0) MONO x10^3 (test code 1.01 10*3/uL 0.36-1.02 = 742-7) EOS x10^3 (test code = 0.17 10*3/uL 0.06-0.53 711-2) BASO x10^3 (test code 0.03 10*3/uL 0.01-0.09 = 704-7) Lab Interpretation Abnormal (test code = 36459-2) [facility] WITH [id number] 09:56:51 Test Item Value Reference Range Interpretation Comments WBC (test code = See_Comment H [Automated 6690-2) message] The sy stem which generated this result transmitted reference range : 4.20 - 10.70 10*3/?L. The reference range was not used to interpret this result as normal/abnormal . RBC (test code = See_Comment L [Automated 789-8) message] The sy stem which generated this result transmitted reference range : 4.26 - 5.52 10*6/?L. The reference range was not used to interpret this result as normal/abnormal . HGB (test code = 9.5 g/dL 12.2-16.4 L 718-7) HCT (test code = 28.7 % 38.4-49.3 L 4544-3) MCV (test code = 86.4 fL 81.7-95.6 787-2) MCH (test code = 28.6 pg 26.1-32.7 785-6) MCHC (test code = 33.1 g/dL 31.2-35.0 786-4) RDW-SD (test code = 40.2 fL 38.5-51.6 20464-0) RDW-CV (test code = 12.8 % 12.1-15.4 788-0) PLT (test code = See_Comment H [Automated 777-3) message] The sy stem which generated this result transmitted reference range : 150 - 328 10*3/ ?L. The reference r ivett was not used to interpret this result as normal/abnormal . MPV (test code = 9.4 fL 9.8-13.0 L 73649-4) NRBC/100 WBC (test See_Comment [Automat ed code = 7369835083) message] The system which generated this result transmitted reference range : 0.0 - 10.0 /100 WBCs. The refer ence range was not u sed to interpret th is result as normal/abnormal . NRBC x10^3 (test code <0.01 See_Comment [Auto mated = 0274171758) message] The s ystem which generated this result transmitted reference range : 10*3/?L. The reference range was not used to interpret this result as normal/abnormal . GRAN MAT (NEUT) % 73.4 % (test code = 770-8) IMM GRAN % (test code 1.00 % = 8523169558) LYMPH % (test code = 16.6 % 736-9) MONO % (test code = 7.5 % 5905-5) EOS % (test code = 1.3 % 713-8) BASO % (test code = 0.2 % 706-2) GRAN MAT x10^3(ANC) 9.83 10*3/uL 1.99-6.95 H (test code = 5014237668) IMM GRAN x10^3 (test 0.13 10*3/uL 0.00-0.06 H code = 1858849883) LYMPH x10^3 (test code 2.23 10*3/uL 1.09-3.23 = 731-0) MONO x10^3 (test code 1.01 10*3/uL 0.36-1.02 = 742-7) EOS x10^3 (test code = 0.17 10*3/uL 0.06-0.53 711-2) BASO x10^3 (test code 0.03 10*3/uL 0.01-0.09 = 704-7) Lab Interpretation Abnormal (test code = 28765-4) [facility] WITH [id number] 09:56:51 Test Item Value Reference Range Interpretation Comments WBC (test code = See_Comment H [Automated 5690-2) message] The sy stem which generated this result transmitted reference range : 4.20 - 10.70 10*3/?L. The reference range was not used to interpret this result as normal/abnormal . RBC (test code = See_Comment L [Automated 359-8) message] The sy stem which generated this result transmitted reference range : 4.26 - 5.52 10*6/?L. The reference range was not used to interpret this result as normal/abnormal . HGB (test code = 9.5 g/dL 12.2-16.4 L 718-7) HCT (test code = 28.7 % 38.4-49.3 L 4544-3) MCV (test code = 86.4 fL 81.7-95.6 787-2) MCH (test code = 28.6 pg 26.1-32.7 785-6) MCHC (test code = 33.1 g/dL 31.2-35.0 786-4) RDW-SD (test code = 40.2 fL 38.5-51.6 28998-0) RDW-CV (test code = 12.8 % 12.1-15.4 788-0) PLT (test code = See_Comment H [Automated 777-3) message] The sy stem which generated this result transmitted reference range : 150 - 328 10*3/ ?L. The reference r ivett was not used to interpret this result as normal/abnormal . MPV (test code = 9.4 fL 9.8-13.0 L 01765-6) NRBC/100 WBC (test See_Comment [Automat ed code = 7920269876) message] The system which generated this result transmitted reference range : 0.0 - 10.0 /100 WBCs. The refer ence range was not u sed to interpret th is result as normal/abnormal . NRBC x10^3 (test code <0.01 See_Comment [Auto mated = 1386681284) message] The s ystem which generated this result transmitted reference range : 10*3/?L. The reference range was not used to interpret this result as normal/abnormal . GRAN MAT (NEUT) % 73.4 % (test code = 770-8) IMM GRAN % (test code 1.00 % = 7719399188) LYMPH % (test code = 16.6 % 736-9) MONO % (test code = 7.5 % 5905-5) EOS % (test code = 1.3 % 713-8) BASO % (test code = 0.2 % 706-2) GRAN MAT x10^3(ANC) 9.83 10*3/uL 1.99-6.95 H (test code = 4897388448) IMM GRAN x10^3 (test 0.13 10*3/uL 0.00-0.06 H code = 1698679440) LYMPH x10^3 (test code 2.23 10*3/uL 1.09-3.23 = 731-0) MONO x10^3 (test code 1.01 10*3/uL 0.36-1.02 = 742-7) EOS x10^3 (test code = 0.17 10*3/uL 0.06-0.53 711-2) BASO x10^3 (test code 0.03 10*3/uL 0.01-0.09 = 704-7) Lab Interpretation Abnormal (test code = 33187-1) [facility] WITH [id number] 09:56:51 Test Item Value Reference Range Interpretation Comments WBC (test code = See_Comment H [Automated 6690-2) message] The sy stem which generated this result transmitted reference range : 4.20 - 10.70 10*3/?L. The reference range was not used to interpret this result as normal/abnormal . RBC (test code = See_Comment L [Automated 789-8) message] The sy stem which generated this result transmitted reference range : 4.26 - 5.52 10*6/?L. The reference range was not used to interpret this result as normal/abnormal . HGB (test code = 9.5 g/dL 12.2-16.4 L 718-7) HCT (test code = 28.7 % 38.4-49.3 L 4544-3) MCV (test code = 86.4 fL 81.7-95.6 787-2) MCH (test code = 28.6 pg 26.1-32.7 785-6) MCHC (test code = 33.1 g/dL 31.2-35.0 786-4) RDW-SD (test code = 40.2 fL 38.5-51.6 78559-3) RDW-CV (test code = 12.8 % 12.1-15.4 788-0) PLT (test code = See_Comment H [Automated 777-3) message] The sy stem which generated this result transmitted reference range : 150 - 328 10*3/ ?L. The reference r ivett was not used to interpret this result as normal/abnormal . MPV (test code = 9.4 fL 9.8-13.0 L 75287-2) NRBC/100 WBC (test See_Comment [Automat ed code = 2366763834) message] The system which generated this result transmitted reference range : 0.0 - 10.0 /100 WBCs. The refer ence range was not u sed to interpret th is result as normal/abnormal . NRBC x10^3 (test code <0.01 See_Comment [Auto mated = 7020118953) message] The s ystem which generated this result transmitted reference range : 10*3/?L. The reference range was not used to interpret this result as normal/abnormal . GRAN MAT (NEUT) % 73.4 % (test code = 770-8) IMM GRAN % (test code 1.00 % = 3599031080) LYMPH % (test code = 16.6 % 736-9) MONO % (test code = 7.5 % 5905-5) EOS % (test code = 1.3 % 713-8) BASO % (test code = 0.2 % 706-2) GRAN MAT x10^3(ANC) 9.83 10*3/uL 1.99-6.95 H (test code = 1611413238) IMM GRAN x10^3 (test 0.13 10*3/uL 0.00-0.06 H code = 4326365429) LYMPH x10^3 (test code 2.23 10*3/uL 1.09-3.23 = 731-0) MONO x10^3 (test code 1.01 10*3/uL 0.36-1.02 = 742-7) EOS x10^3 (test code = 0.17 10*3/uL 0.06-0.53 711-2) BASO x10^3 (test code 0.03 10*3/uL 0.01-0.09 = 704-7) Lab Interpretation Abnormal (test code = 36970-4) [facility] GLUCOSE (AUTOMATED)2020-11-09 07:58:15 Test Item Value Reference Range Interpretation Comments POCT GLU (test code = 6625763185) 123 mg/dL 70-110 H Lab Interpretation (test code = Abnormal 41508-4) [facility] GLUCOSE (AUTOMATED)2020-11-09 07:58:15 Test Item Value Reference Range Interpretation Comments POCT GLU (test code = 0640632327) 123 mg/dL 70-110 H Lab Interpretation (test code = Abnormal 13686-4) [facility] GLUCOSE (AUTOMATED)2020-11-09 07:58:15 Test Item Value Reference Range Interpretation Comments POCT GLU (test code = 4895816727) 123 mg/dL 70-110 H Lab Interpretation (test code = Abnormal 94152-0) [facility] GLUCOSE (AUTOMATED)2020-11-09 07:58:15 Test Item Value Reference Range Interpretation Comments POCT GLU (test code = 3664344732) 123 mg/dL 70-110 H Lab Interpretation (test code = Abnormal 17642-1) [facility] GLUCOSE (AUTOMATED)2020-11-09 07:58:15 Test Item Value Reference Range Interpretation Comments POCT GLU (test code = 4147748059) 123 mg/dL 70-110 H Lab Interpretation (test code = Abnormal 62508-0) [facility] GLUCOSE (AUTOMATED)2020-11-09 07:09:33 Test Item Value Reference Range Interpretation Comments POCT GLU (test code = 0539489336) 166 mg/dL 70-110 H Lab Interpretation (test code = Abnormal 29042-8) [facility] GLUCOSE (AUTOMATED)2020-11-09 07:09:33 Test Item Value Reference Range Interpretation Comments POCT GLU (test code = 7103949713) 166 mg/dL 70-110 H Lab Interpretation (test code = Abnormal 61945-5) [facility] GLUCOSE (AUTOMATED)2020-11-09 07:09:33 Test Item Value Reference Range Interpretation Comments POCT GLU (test code = 4084407411) 166 mg/dL 70-110 H Lab Interpretation (test code = Abnormal 94135-5) [facility] GLUCOSE (AUTOMATED)2020-11-09 07:09:33 Test Item Value Reference Range Interpretation Comments POCT GLU (test code = 3890531608) 166 mg/dL 70-110 H Lab Interpretation (test code = Abnormal 05436-1) [facility] GLUCOSE (AUTOMATED)2020-11-09 07:09:33 Test Item Value Reference Range Interpretation Comments POCT GLU (test code = 1039052765) 166 mg/dL 70-110 H Lab Interpretation (test code = Abnormal 84091-3) [facility] GLUCOSE (AUTOMATED)2020-11-09 05:47:56 Test Item Value Reference Range Interpretation Comments POCT GLU (test code = 7190624846) 256 mg/dL 70-110 H Lab Interpretation (test code = Abnormal 73187-1) [facility] GLUCOSE (AUTOMATED)2020-11-09 05:47:56 Test Item Value Reference Range Interpretation Comments POCT GLU (test code = 4496023121) 256 mg/dL 70-110 H Lab Interpretation (test code = Abnormal 95338-6) [facility] GLUCOSE (AUTOMATED)2020-11-09 05:47:56 Test Item Value Reference Range Interpretation Comments POCT GLU (test code = 7583649997) 256 mg/dL 70-110 H Lab Interpretation (test code = Abnormal 58380-1) [facility] GLUCOSE (AUTOMATED)2020-11-09 05:47:56 Test Item Value Reference Range Interpretation Comments POCT GLU (test code = 4785981105) 256 mg/dL 70-110 H Lab Interpretation (test code = Abnormal 73198-4) [facility] GLUCOSE (AUTOMATED)2020-11-09 05:47:56 Test Item Value Reference Range Interpretation Comments POCT GLU (test code = 4496414412) 256 mg/dL 70-110 H Lab Interpretation (test code = Abnormal 88427-1) [facility] GLUCOSE (AUTOMATED)2020-11-09 04:59:51 Test Item Value Reference Range Interpretation Comments POCT GLU (test code = 1582137302) 305 mg/dL 70-110 H Lab Interpretation (test code = Abnormal 31185-2) [facility] GLUCOSE (AUTOMATED)2020-11-09 04:59:51 Test Item Value Reference Range Interpretation Comments POCT GLU (test code = 4632446788) 305 mg/dL 70-110 H Lab Interpretation (test code = Abnormal 54337-8) [facility] GLUCOSE (AUTOMATED)2020-11-09 04:59:51 Test Item Value Reference Range Interpretation Comments POCT GLU (test code = 3966027857) 305 mg/dL 70-110 H Lab Interpretation (test code = Abnormal 65140-1) [facility] GLUCOSE (AUTOMATED)2020-11-09 04:59:51 Test Item Value Reference Range Interpretation Comments POCT GLU (test code = 8741533323) 305 mg/dL 70-110 H Lab Interpretation (test code = Abnormal 09955-0) [facility] GLUCOSE (AUTOMATED)2020-11-09 04:59:51 Test Item Value Reference Range Interpretation Comments POCT GLU (test code = 6236989039) 305 mg/dL 70-110 H Lab Interpretation (test code = Abnormal 96856-7) [facility] GLUCOSE (AUTOMATED)2020-11-09 04:07:25 Test Item Value Reference Range Interpretation Comments POCT GLU (test code = 7487910353) 308 mg/dL 70-110 H Lab Interpretation (test code = Abnormal 41646-6) [facility] GLUCOSE (AUTOMATED)2020-11-09 04:07:25 Test Item Value Reference Range Interpretation Comments POCT GLU (test code = 6339363782) 308 mg/dL 70-110 H Lab Interpretation (test code = Abnormal 62104-9) [facility] GLUCOSE (AUTOMATED)2020-11-09 04:07:25 Test Item Value Reference Range Interpretation Comments POCT GLU (test code = 7007975288) 308 mg/dL 70-110 H Lab Interpretation (test code = Abnormal 44114-6) [facility] GLUCOSE (AUTOMATED)2020-11-09 04:07:25 Test Item Value Reference Range Interpretation Comments POCT GLU (test code = 2890506656) 308 mg/dL 70-110 H Lab Interpretation (test code = Abnormal 24244-4) [facility] GLUCOSE (AUTOMATED)2020-11-09 04:07:25 Test Item Value Reference Range Interpretation Comments POCT GLU (test code = 9690739628) 308 mg/dL 70-110 H Lab Interpretation (test code = Abnormal 85788-5) [facility] GLUCOSE (AUTOMATED)2020-11-09 02:48:38 Test Item Value Reference Range Interpretation Comments POCT GLU (test code = 5257901585) 362 mg/dL 70-110 H Lab Interpretation (test code = Abnormal 63718-7) [facility] GLUCOSE (AUTOMATED)2020-11-09 02:48:38 Test Item Value Reference Range Interpretation Comments POCT GLU (test code = 8880455527) 362 mg/dL 70-110 H Lab Interpretation (test code = Abnormal 37983-5) [facility] GLUCOSE (AUTOMATED)2020-11-09 02:48:38 Test Item Value Reference Range Interpretation Comments POCT GLU (test code = 3337323144) 362 mg/dL 70-110 H Lab Interpretation (test code = Abnormal 89522-8) [facility] GLUCOSE (AUTOMATED)2020-11-09 02:48:38 Test Item Value Reference Range Interpretation Comments POCT GLU (test code = 4429078552) 362 mg/dL 70-110 H Lab Interpretation (test code = Abnormal 44797-7) [facility] GLUCOSE (AUTOMATED)2020-11-09 02:48:38 Test Item Value Reference Range Interpretation Comments POCT GLU (test code = 1903721367) 362 mg/dL 70-110 H Lab Interpretation (test code = Abnormal 72574-5) [facility] GLUCOSE (AUTOMATED)2020-11-09 01:43:05 Test Item Value Reference Range Interpretation Comments POCT GLU (test code = 3880801335) 375 mg/dL 70-110 H Lab Interpretation (test code = Abnormal 90288-3) [facility] GLUCOSE (AUTOMATED)2020-11-09 01:43:05 Test Item Value Reference Range Interpretation Comments POCT GLU (test code = 7980904875) 375 mg/dL 70-110 H Lab Interpretation (test code = Abnormal 82423-0) [facility] GLUCOSE (AUTOMATED)2020-11-09 01:43:05 Test Item Value Reference Range Interpretation Comments POCT GLU (test code = 9560638600) 375 mg/dL 70-110 H Lab Interpretation (test code = Abnormal 71666-5) [facility] GLUCOSE (AUTOMATED)2020-11-09 01:43:05 Test Item Value Reference Range Interpretation Comments POCT GLU (test code = 8358986312) 375 mg/dL 70-110 H Lab Interpretation (test code = Abnormal 03377-6) [facility] GLUCOSE (AUTOMATED)2020-11-09 01:43:05 Test Item Value Reference Range Interpretation Comments POCT GLU (test code = 1191162906) 375 mg/dL 70-110 H Lab Interpretation (test code = Abnormal 34876-9) [facility] GLUCOSE (AUTOMATED)2020-11-08 23:35:35 Test Item Value Reference Range Interpretation Comments POCT GLU (test code = 3348010583) 368 mg/dL 70-110 H Lab Interpretation (test code = Abnormal 23305-4) [facility] GLUCOSE (AUTOMATED)2020-11-08 23:35:35 Test Item Value Reference Range Interpretation Comments POCT GLU (test code = 1104666662) 368 mg/dL 70-110 H Lab Interpretation (test code = Abnormal 51591-6) [facility] GLUCOSE (AUTOMATED)2020-11-08 23:35:35 Test Item Value Reference Range Interpretation Comments POCT GLU (test code = 9321269205) 368 mg/dL 70-110 H Lab Interpretation (test code = Abnormal 47991-3) [facility] GLUCOSE (AUTOMATED)2020-11-08 23:35:35 Test Item Value Reference Range Interpretation Comments POCT GLU (test code = 9925776924) 368 mg/dL 70-110 H Lab Interpretation (test code = Abnormal 83299-5) [facility] GLUCOSE (AUTOMATED)2020-11-08 23:35:35 Test Item Value Reference Range Interpretation Comments POCT GLU (test code = 8055322593) 368 mg/dL 70-110 H Lab Interpretation (test code = Abnormal 43201-6) [facility] GLUCOSE (AUTOMATED)2020-11-08 22:24:14 Test Item Value Reference Range Interpretation Comments POCT GLU (test code = 4724390198) 326 mg/dL 70-110 H Lab Interpretation (test code = Abnormal 94346-4) [facility] GLUCOSE (AUTOMATED)2020-11-08 22:24:14 Test Item Value Reference Range Interpretation Comments POCT GLU (test code = 9038925067) 326 mg/dL 70-110 H Lab Interpretation (test code = Abnormal 80203-5) [facility] GLUCOSE (AUTOMATED)2020-11-08 22:24:14 Test Item Value Reference Range Interpretation Comments POCT GLU (test code = 4829083216) 326 mg/dL 70-110 H Lab Interpretation (test code = Abnormal 23228-2) [facility] GLUCOSE (AUTOMATED)2020-11-08 22:24:14 Test Item Value Reference Range Interpretation Comments POCT GLU (test code = 5731014964) 326 mg/dL 70-110 H Lab Interpretation (test code = Abnormal 23534-0) [facility] GLUCOSE (AUTOMATED)2020-11-08 22:24:14 Test Item Value Reference Range Interpretation Comments POCT GLU (test code = 2185396634) 326 mg/dL 70-110 H Lab Interpretation (test code = Abnormal 30068-3) [facility] GLUCOSE (AUTOMATED)2020-11-08 18:54:37 Test Item Value Reference Range Interpretation Comments POCT GLU (test code = 9381024327) 306 mg/dL 70-110 H Lab Interpretation (test code = Abnormal 18463-9) [facility] GLUCOSE (AUTOMATED)2020-11-08 18:54:37 Test Item Value Reference Range Interpretation Comments POCT GLU (test code = 7086548540) 306 mg/dL 70-110 H Lab Interpretation (test code = Abnormal 48881-6) [facility] GLUCOSE (AUTOMATED)2020-11-08 18:54:37 Test Item Value Reference Range Interpretation Comments POCT GLU (test code = 4032939641) 306 mg/dL 70-110 H Lab Interpretation (test code = Abnormal 16321-9) [facility] GLUCOSE (AUTOMATED)2020-11-08 18:54:37 Test Item Value Reference Range Interpretation Comments POCT GLU (test code = 0620677421) 306 mg/dL 70-110 H Lab Interpretation (test code = Abnormal 13532-9) [facility] GLUCOSE (AUTOMATED)2020-11-08 18:54:37 Test Item Value Reference Range Interpretation Comments POCT GLU (test code = 2274733311) 306 mg/dL 70-110 H Lab Interpretation (test code = Abnormal 72314-7) [facility] [id number] 16:47:59COVID DMT InterpretationInterpretation/Recommendations: Molecular NAAT Tests for Active Infection with the SARS-CoV-2 Virus: The patient has currently tested negative for the SARS-CoV-2 virus that causes COVID-19 illness. This most likely indicates that the patient does not have an active infection with the SARS-CoV-2 virus. However, infection is not completely ruled out as the false negative rate for molecular NAAT testing using a nasopharyngeal sample can be up to 30%, mostly dependent on the timing of sample collection in relation to illness onset and any deficiencies in sampling techniques. If the patient has symptoms concerning for COVID-19 illness, a repeat NAAT test (PCR, Rapid ID Now, etc.) should be performed, at which time the SARS-CoV-2 virus - if present - may have reached a detectable viral load (usually peaking by the end of the first week of symptoms). Tests for IgM and/or IgG Antibodies to the SARS-CoV-2 Virus: If the patient develops COVID-19 illness in the future, testing for IgM and IgG antibodies approximately 3 weeks after illness onset will likely indicate if the patient has produced antibodies to the SARS-CoV-2 virus. However, some patients may take longer to develop detectable antibodies, while some patients who were infected with SARS-CoV-2 may never develop antibodies. While antibodies to SARS-CoV-2 may provide some degree of immunity, at this time the strength and duration of the antibody response is unknown. Interpretation Result Comments:These interpretation comments are based upon all COVID-19 testing the patient has had at [facility], including molecular NAAT testing (more commonly known as PCR testing and Rapid ID Now testing) and antibody testing. It does not take into account any testingthat a patient has had outside of the [facility] medical record. [facility] LABORATORY SERVICESCOVID [id number] Rapid ID NOW (no units) ? ? Date ? Value ? 11/05/2020 ? Not Detected ? [facility] [id number] 16:47:59COVID DMT InterpretationInterpretation/Recommendations: Molecular NAAT Tests for Active Infection with the SARS-CoV-2 Virus: The patient has currently tested negative for the SARS-CoV-2 virus that causes COVID-19 illness. This most likely indicates that the patient does not have an active infection with the SARS-CoV-2 virus. However, infection is not completely ruled out as the false negative rate for molecular NAAT testing using a nasopharyngeal sample can be up to 30%, mostly dependent on the timing of sample collection in relation to illness onset and any deficiencies in sampling techniques. If the patient has symptoms concerning for COVID-19 illness, a repeat NAAT test (PCR, Rapid ID Now, etc.) should be performed, at which time the SARS-CoV-2 virus - if present - may have reached a detectable viral load (usually peaking by the end of the first week of symptoms). Tests for IgM and/or IgG Antibodies to the SARS-CoV-2 Virus: If the patient develops COVID-19 illness in the future, testing for IgM and IgG antibodies approximately 3 weeks after illness onset will likely indicate if the patient has produced antibodies to the SARS-CoV-2 virus. However, some patients may take longer to develop detectable antibodies, while some patients who were infected with SARS-CoV-2 may never develop antibodies. While antibodies to SARS-CoV-2 may provide some degree of immunity, at this time the strength and duration of the antibody response is unknown. Interpretation Result Comments:These interpretation comments are based upon all COVID-19 testing the patient has had at [facility], including molecular NAAT testing (more commonly known as PCR testing and Rapid ID Now testing) and antibody testing. It does not take into account any testingthat a patient has had outside of the [facility] medical record. [facility] LABORATORY SERVICESCOVID SaxsqmtLOEY-DgQ-9 Rapid ID NOW (no units) ? ? Date ? Value ? 11/05/2020 ? Not Detected ? [facility] [id number] 16:47:59COVID DMT InterpretationInterpretation/Recommendations: Molecular NAAT Tests for Active Infection with the SARS-CoV-2 Virus: The patient has currently tested negative for the SARS-CoV-2 virus that causes COVID-19 illness. This most likely indicates that the patient does not have an active infection with the SARS-CoV-2 virus. However, infection is not completely ruled out as the false negative rate for molecular NAAT testing using a nasopharyngeal sample can be up to 30%, mostly dependent on the timing of sample collection in relation to illness onset and any deficiencies in sampling techniques. Ifthe patient has symptoms concerning for COVID-19 illness, a repeat NAAT test (PCR, Rapid ID Now, etc.) should be performed, at which time the SARS-CoV-2 virus - if present - may have reached a detectable viral load (usually peaking by the end of the first week of symptoms). Tests for IgM and/or IgG Antibodies to the SARS-CoV-2 Virus: If the patient develops COVID-19 illness in the future, testing forIgM and IgG antibodies approximately 3 weeks after illness onset will likely indicate if the patienthas produced antibodies to the SARS-CoV-2 virus. However, some patients may take longer to develop detectable antibodies, while some patients who were infected with SARS-CoV-2 may never develop antibodies. While antibodies to SARS-CoV-2 may provide some degree of immunity, at this time the strength and duration of the antibody response is unknown. Interpretation Result Comments:These interpretation comments are based upon all COVID-19 testing the patient has had at [facility], including molecular NAAT testing (more commonly known asPCR testing and Rapid ID Now testing) and antibody testing. It does not take into account any testing that a patient has had outside of the [facility] medical record. [facility] LABORATORY SERVICESCOVID ResultsSARS -CoV-2 Rapid ID NOW (no units) ? ? Date ? Value ? 11/05/2020 ? Not Detected ? [facility] [id number] 16:47:59COVID DMT InterpretationInterpretation/Recommendations: Molecular NAAT Tests for Active Infection with the SARS-CoV-2 Virus: The patient has currently tested negative for the SARS-CoV-2 virus that causes COVID-19 illness. This most likely indicates that the patient does not have an active infection with the SARS-CoV-2 virus. However, infection is not completely ruled out as the false negative rate for molecular NAAT testing using a nasopharyngeal sample can be up to 30%, mostly dependent on the timing of sample collection in relation to illness onset and any deficiencies in sampling techniques. If the patient has symptoms concerning for COVID-19 illness, a repeat NAAT test (PCR, Rapid ID Now, etc.) should be performed, at which time the SARS-CoV-2 virus - if present - may have reached a detectable viral load (usually peaking by the end of the first week of symptoms). Tests for IgM and/or IgG Antibodies to the SARS-CoV-2 Virus: If the patient develops COVID-19 illness in the future, testing for IgM and IgG antibodies approximately 3 weeks after illness onset will likely indicate if the patient has produced antibodies to the SARS-CoV-2 virus. However, some patients may take longer to develop detectable antibodies, while some patients who were infected with SARS-CoV-2 may never develop antibodies. While antibodies to SARS-CoV-2 may provide some degree of immunity, at this time the strength and duration of the antibody response is unknown. Interpretation Result Comments:These interpretation comments are based upon all COVID-19 testing the patient has had at [facility], including molecular NAAT testing (more commonly known as PCR testing and Rapid ID Now testing) and antibody testing. It does not take into account any testingthat a patient has had outside of the [facility] medical record. [facility] LABORATORY SERVICESCOVID GuroeatENFR-VwX-8 Rapid ID NOW (no units) ? ? Date ? Value ? 11/05/2020 ? Not Detected ? [facility] [id number] 16:47:59COVID DMT InterpretationInterpretation/Recommendations: Molecular NAAT Tests for Active Infection with the SARS-CoV-2 Virus: The patient has currently tested negative for the SARS-CoV-2 virus that causes COVID-19 illness. This most likely indicates that the patient does not have an active infection with the SARS-CoV-2 virus. However, infection is not completely ruled out as the false negative rate for molecular NAAT testing using a nasopharyngeal sample can be up to 30%, mostly dependent on the timing of sample collection in relation to illness onset and any deficiencies in sampling techniques. If the patient has symptoms concerning for COVID-19 illness, a repeat NAAT test (PCR, Rapid ID Now, etc.) should be performed, at which time the SARS-CoV-2 virus - if present - may have reached a detectable viral load (usually peaking by the end of the first week of symptoms). Tests for IgM and/or IgG Antibodies to the SARS-CoV-2 Virus: If the patient develops COVID-19 illness in the future, testing for IgM and IgG antibodies approximately 3 weeks after illness onset will likely indicate if the patient has produced antibodies to the SARS-CoV-2 virus. However, some patients may take longer to develop detectable antibodies, while some patients who were infected with SARS-CoV-2 may never develop antibodies. While antibodies to SARS-CoV-2 may provide some degree of immunity, at this time the strength and duration of the antibody response is unknown. Interpretation Result Comments:These interpretation comments are based upon all COVID-19 testing the patient has had at [facility], including molecular NAAT testing (more commonly known as PCR testing and Rapid ID Now testing) and antibody testing. It does not take into account any testingthat a patient has had outside of the [facility] medical record. [facility] LABORATORY SERVICESCOVID UeqacskNLRI-RhM-7 Rapid ID NOW (no units) ? ? Date ? Value ? 11/05/2020 ? Not Detected ? [id number])(TOTAL CHOLESTEROL, TRIGLYCERIDES, HDL)2020-11-08 16:47:01 Test Item Value Reference Range Interpretation Comments CHOL (test code = 117 mg/dL 120-200 L [id number]) HDL (test code = 18 mg/dL >40 L 8144478728) HDLC RATIO (test code = See_Comment H [Au tomated message] [id number]) The system [employer] generated this result transmit marcelina reference range : <=5.0. The refe rence range was not u sed to interpret th is result as normal/abnormal . TRIG (test code = 93 mg/dL 30-170 4186577739) LDL CHOL (test code = 80 mg/dL See_Comment [Auto mated message] 38216-2) The system [employer] generated this result transmit marcelina reference range : <=160. The refe rence range was not u sed to interpret th is result as normal/abnormal . VLDL (test code = 19 mg/dL 5-60 5388255086) Lab Interpretation (test Abnormal code = 57805-5) [facility] ([id number])(TOTAL CHOLESTEROL, TRIGLYCERIDES, HDL)2020-11-08 16:47:01 Test Item Value Reference Range Interpretation Comments CHOL (test code = 117 mg/dL 120-200 L 2374753561) HDL (test code = 18 mg/dL >40 L 7533411512) HDLC RATIO (test code = See_Comment H [Au tomated message] [id number]) The system [employer] generated this result transmit marcelina reference range : <=5.0. The refe rence range was not u sed to interpret th is result as normal/abnormal . TRIG (test code = 93 mg/dL 30-170 6091798985) LDL CHOL (test code = 80 mg/dL See_Comment [Auto mated message] 57524-3) The system [employer] generated this result transmit marcelina reference range : <=160. The refe rence range was not u sed to interpret th is result as normal/abnormal . VLDL (test code = 19 mg/dL 5-60 0619233722) Lab Interpretation (test Abnormal code = 21493-5) [facility][id number])(TOTAL CHOLESTEROL, TRIGLYCERIDES, HDL)2020-11-08 16:47:01 Test Item Value Reference Range Interpretation Comments CHOL (test code = 117 mg/dL 120-200 L 3419881051) HDL (test code = 18 mg/dL >40 L 4446416180) HDLC RATIO (test code = See_Comment H [Au tomated message] 9519123896) The system [employer] generated this result transmit marcelina reference range : <=5.0. The refe rence range was not u sed to interpret th is result as normal/abnormal . TRIG (test code = 93 mg/dL 30-170 4197138623) LDL CHOL (test code = 80 mg/dL See_Comment [Auto mated message] 34385-7) The system [employer] generated this result transmit marcelina reference range : <=160. The refe rence range was not u sed to interpret th is result as normal/abnormal . VLDL (test code = 19 mg/dL 5-60 2749124798) Lab Interpretation (test Abnormal code = 69676-4) [facility] ([id number])(TOTAL CHOLESTEROL, TRIGLYCERIDES, HDL)2020-11-08 16:47:01 Test Item Value Reference Range Interpretation Comments CHOL (test code = 117 mg/dL 120-200 L 0891366914) HDL (test code = 18 mg/dL >40 L 9951299954) HDLC RATIO (test code = See_Comment H [Au tomated message] 3199413282) The system [employer] generated this result transmit marcelina reference range : <=5.0. The refe rence range was not u sed to interpret th is result as normal/abnormal . TRIG (test code = 93 mg/dL 30-170 1081086222) LDL CHOL (test code = 80 mg/dL See_Comment [Auto mated message] 30830-5) The system [employer] generated this result transmit marcelina reference range : <=160. The refe rence range was not u sed to interpret th is result as normal/abnormal . VLDL (test code = 19 mg/dL 5-60 8948902856) Lab Interpretation (test Abnormal code = 85144-6) [facility] ([id number])(TOTAL CHOLESTEROL, TRIGLYCERIDES, HDL)2020-11-08 16:47:01 Test Item Value Reference Range Interpretation Comments CHOL (test code = 117 mg/dL 120-200 L 7981890834) HDL (test code = 18 mg/dL >40 L 6372530656) HDLC RATIO (test code = See_Comment H [Au tomated message] 8181729349) The system [employer] generated this result transmit marcelina reference range : <=5.0. The refe rence range was not u sed to interpret th is result as normal/abnormal . TRIG (test code = 93 mg/dL 30-170 3789773046) LDL CHOL (test code = 80 mg/dL See_Comment [Auto mated message] 78205-4) The system [employer] generated this result transmit marcelina reference range : <=160. The refe rence range was not u sed to interpret th is result as normal/abnormal . VLDL (test code = 19 mg/dL 5-60 3582942037) Lab Interpretation (test Abnormal code = 83554-8) [facility] GLUCOSE (AUTOMATED)2020-11-08 15:08:18 Test Item Value Reference Range Interpretation Comments POCT GLU (test code = 9403102395) 203 mg/dL 70-110 H Lab Interpretation (test code = Abnormal 01735-1) [facility] GLUCOSE (AUTOMATED)2020-11-08 15:08:18 Test Item Value Reference Range Interpretation Comments POCT GLU (test code = 0249759222) 203 mg/dL 70-110 H Lab Interpretation (test code = Abnormal 99902-3) [facility] GLUCOSE (AUTOMATED)2020-11-08 15:08:18 Test Item Value Reference Range Interpretation Comments POCT GLU (test code = 4362889026) 203 mg/dL 70-110 H Lab Interpretation (test code = Abnormal 71041-5) [facility] GLUCOSE (AUTOMATED)2020-11-08 15:08:18 Test Item Value Reference Range Interpretation Comments POCT GLU (test code = 2564040906) 203 mg/dL 70-110 H Lab Interpretation (test code = Abnormal 59350-6) [facility]2020-11-08 15:08:18 Test Item Value Reference Range Interpretation Comments POCT GLU (test code = 1696127800) 203 mg/dL 70-110 H Lab Interpretation (test code = Abnormal 51777-1) [facility] GLUCOSE (AUTOMATED)2020-11-08 08:55:56 Test Item Value Reference Range Interpretation Comments POCT GLU (test code = 9472695486) 100 mg/dL 70-110 Lab Interpretation (test code = Normal 13511-7) [facility] GLUCOSE (AUTOMATED)2020-11-08 08:55:56 Test Item Value Reference Range Interpretation Comments POCT GLU (test code = 2333852218) 100 mg/dL 70-110 Lab Interpretation (test code = Normal 51063-1) [facility] GLUCOSE (AUTOMATED)2020-11-08 08:55:56 Test Item Value Reference Range Interpretation Comments POCT GLU (test code = 7794520709) 100 mg/dL 70-110 Lab Interpretation (test code = Normal 30002-0) [facility] GLUCOSE (AUTOMATED)2020-11-08 08:55:56 Test Item Value Reference Range Interpretation Comments POCT GLU (test code = 0778157783) 100 mg/dL 70-110 Lab Interpretation (test code = Normal 72230-5) [facility] GLUCOSE (AUTOMATED)2020-11-08 08:55:56 Test Item Value Reference Range Interpretation Comments POCT GLU (test code = 0594960646) 100 mg/dL 70-110 Lab Interpretation (test code = Normal 16681-2) [facility] GLUCOSE (AUTOMATED)2020-11-08 04:58:57 Test Item Value Reference Range Interpretation Comments POCT GLU (test code = 7569204833) 145 mg/dL 70-110 H Lab Interpretation (test code = Abnormal 04991-1) [facility] GLUCOSE (AUTOMATED)2020-11-08 04:58:57 Test Item Value Reference Range Interpretation Comments POCT GLU (test code = 1015241033) 145 mg/dL 70-110 H Lab Interpretation (test code = Abnormal 03014-1) [facility] GLUCOSE (AUTOMATED)2020-11-08 04:58:57 Test Item Value Reference Range Interpretation Comments POCT GLU (test code = 5174435312) 145 mg/dL 70-110 H Lab Interpretation (test code = Abnormal 45201-6) [facility] GLUCOSE (AUTOMATED)2020-11-08 04:58:57 Test Item Value Reference Range Interpretation Comments POCT GLU (test code = 6232982217) 145 mg/dL 70-110 H Lab Interpretation (test code = Abnormal 33007-9) [facility] GLUCOSE (AUTOMATED)2020-11-08 04:58:57 Test Item Value Reference Range Interpretation Comments POCT GLU (test code = 6232927070) 145 mg/dL 70-110 H Lab Interpretation (test code = Abnormal 48460-8) [facility] GLUCOSE (AUTOMATED)2020-11-08 01:19:46 Test Item Value Reference Range Interpretation Comments POCT GLU (test code = 6834906791) 224 mg/dL 70-110 H Lab Interpretation (test code = Abnormal 88014-9) [facility] GLUCOSE (AUTOMATED)2020-11-08 01:19:46 Test Item Value Reference Range Interpretation Comments POCT GLU (test code = 9488953315) 224 mg/dL 70-110 H Lab Interpretation (test code = Abnormal 76882-1) [facility] GLUCOSE (AUTOMATED)2020-11-08 01:19:46 Test Item Value Reference Range Interpretation Comments POCT GLU (test code = 6528677400) 224 mg/dL 70-110 H Lab Interpretation (test code = Abnormal 70369-8) [facility] GLUCOSE (AUTOMATED)2020-11-08 01:19:46 Test Item Value Reference Range Interpretation Comments POCT GLU (test code = 6366992272) 224 mg/dL 70-110 H Lab Interpretation (test code = Abnormal 48221-4) [facility] GLUCOSE (AUTOMATED)2020-11-08 01:19:46 Test Item Value Reference Range Interpretation Comments POCT GLU (test code = 6822327223) 224 mg/dL 70-110 H Lab Interpretation (test code = Abnormal 60516-8) [facility] GLUCOSE (AUTOMATED)2020-11-07 22:43:45 Test Item Value Reference Range Interpretation Comments POCT GLU (test code = 5084854958) 269 mg/dL 70-110 H Lab Interpretation (test code = Abnormal 20370-6) [facility] GLUCOSE (AUTOMATED)2020-11-07 22:43:45 Test Item Value Reference Range Interpretation Comments POCT GLU (test code = 6437966777) 269 mg/dL 70-110 H Lab Interpretation (test code = Abnormal 98877-5) [facility] GLUCOSE (AUTOMATED)2020-11-07 22:43:45 Test Item Value Reference Range Interpretation Comments POCT GLU (test code = 8074192694) 269 mg/dL 70-110 H Lab Interpretation (test code = Abnormal 45880-1) [facility] GLUCOSE (AUTOMATED)2020-11-07 22:43:45 Test Item Value Reference Range Interpretation Comments POCT GLU (test code = 2817498028) 269 mg/dL 70-110 H Lab Interpretation (test code = Abnormal 25945-8) [facility] GLUCOSE (AUTOMATED)2020-11-07 22:43:45 Test Item Value Reference Range Interpretation Comments POCT GLU (test code = 9409318866) 269 mg/dL 70-110 H Lab Interpretation (test code = Abnormal 40184-3) [facility] GLUCOSE (AUTOMATED)2020-11-07 22:40:12 Test Item Value Reference Range Interpretation Comments POCT GLU (test code = 1970707710) 343 mg/dL 70-110 H Lab Interpretation (test code = Abnormal 49953-7) [facility] GLUCOSE (AUTOMATED)2020-11-07 22:40:12 Test Item Value Reference Range Interpretation Comments POCT GLU (test code = 1868852881) 343 mg/dL 70-110 H Lab Interpretation (test code = Abnormal 73958-4) [facility] GLUCOSE (AUTOMATED)2020-11-07 22:40:12 Test Item Value Reference Range Interpretation Comments POCT GLU (test code = 4922089221) 343 mg/dL 70-110 H Lab Interpretation (test code = Abnormal 33597-3) [facility] GLUCOSE (AUTOMATED)2020-11-07 22:40:12 Test Item Value Reference Range Interpretation Comments POCT GLU (test code = 5414632268) 343 mg/dL 70-110 H Lab Interpretation (test code = Abnormal 65317-8) [facility] GLUCOSE (AUTOMATED)2020-11-07 22:40:12 Test Item Value Reference Range Interpretation Comments POCT GLU (test code = 4319008524) 343 mg/dL 70-110 H Lab Interpretation (test code = Abnormal 01163-7) [facility] GLUCOSE (AUTOMATED)2020-11-07 17:00:44 Test Item Value Reference Range Interpretation Comments POCT GLU (test code = 9136114282) 278 mg/dL 70-110 H Lab Interpretation (test code = Abnormal 43890-2) [facility] GLUCOSE (AUTOMATED)2020-11-07 17:00:44 Test Item Value Reference Range Interpretation Comments POCT GLU (test code = 4215904829) 278 mg/dL 70-110 H Lab Interpretation (test code = Abnormal 62144-3) [facility] GLUCOSE (AUTOMATED)2020-11-07 17:00:44 Test Item Value Reference Range Interpretation Comments POCT GLU (test code = 2282684709) 278 mg/dL 70-110 H Lab Interpretation (test code = Abnormal 63874-4) [facility] GLUCOSE (AUTOMATED)2020-11-07 17:00:44 Test Item Value Reference Range Interpretation Comments POCT GLU (test code = 8134185325) 278 mg/dL 70-110 H Lab Interpretation (test code = Abnormal 10847-8) [facility] GLUCOSE (AUTOMATED)2020-11-07 17:00:44 Test Item Value Reference Range Interpretation Comments POCT GLU (test code = 4941593672) 278 mg/dL 70-110 H Lab Interpretation (test code = Abnormal 83454-8) [facility] GLUCOSE (AUTOMATED)2020-11-07 12:41:22 Test Item Value Reference Range Interpretation Comments POCT GLU (test code = 5868660053) 207 mg/dL 70-110 H Lab Interpretation (test code = Abnormal 19380-4) [facility] GLUCOSE (AUTOMATED)2020-11-07 12:41:22 Test Item Value Reference Range Interpretation Comments POCT GLU (test code = 4795223694) 207 mg/dL 70-110 H Lab Interpretation (test code = Abnormal 64806-1) [facility] GLUCOSE (AUTOMATED)2020-11-07 12:41:22 Test Item Value Reference Range Interpretation Comments POCT GLU (test code = 8825998538) 207 mg/dL 70-110 H Lab Interpretation (test code = Abnormal 61318-6) [facility] GLUCOSE (AUTOMATED)2020-11-07 12:41:22 Test Item Value Reference Range Interpretation Comments POCT GLU (test code = 5053191933) 207 mg/dL 70-110 H Lab Interpretation (test code = Abnormal 88409-4) [facility] GLUCOSE (AUTOMATED)2020-11-07 12:41:22 Test Item Value Reference Range Interpretation Comments POCT GLU (test code = 4193909064) 207 mg/dL 70-110 H Lab Interpretation (test code = Abnormal 65092-2) [facility] Draw immediately prior to the 4TH dose, but, no more than 60 minutes before the 5TH dose. 2020-11-07 10:46:27 Test Item Value Reference Range Interpretation Comments VANCO TROUGH (test code 5.0 ug/mL 10.0-20.0 L = 9922247372) PATTI (test code = PATTI) Toxic Range: ?>20 ug/mL 15-20 ug/mL is recommended for severe infection or when Vancomycin ADALBERTO is greater than or equal to 2. Lab Interpretation (test Abnormal code = 96994-5) [facility] - Draw immediately prior to the 4TH dose, but, no more than 60 minutes before the 5TH dose. 2020-11-07 10:46:27 Test Item Value Reference Range Interpretation Comments VANCO TROUGH (test code 5.0 ug/mL 10.0-20.0 L = 8809106892) PATTI (test code = PATTI) Toxic Range: ?>20 ug/mL 15-20 ug/mL is recommended for severe infection or when Vancomycin ADALBERTO is greater than or equal to 2. Lab Interpretation (test Abnormal code = 17639-8) [facility] - Draw immediately prior to the 4TH dose, but, no more than 60 minutes before the 5TH dose. 2020-11-07 10:46:27 Test Item Value Reference Range Interpretation Comments VANCO TROUGH (test code 5.0 ug/mL 10.0-20.0 L = 0679157148) PATTI (test code = PATTI) Toxic Range: ?>20 ug/mL 15-20 ug/mL is recommended for severe infection or when Vancomycin ADALBERTO is greater than or equal to 2. Lab Interpretation (test Abnormal code = 91181-1) [facility] - Draw immediately prior to the 4TH dose, but, no more than 60 minutes before the 5TH dose. 2020-11-07 10:46:27 Test Item Value Reference Range Interpretation Comments VANCO TROUGH (test code 5.0 ug/mL 10.0-20.0 L = 5348671114) PATTI (test code = PATTI) Toxic Range: ?>20 ug/mL 15-20 ug/mL is recommended for severe infection or when Vancomycin ADALBERTO is greater than or equal to 2. Lab Interpretation (test Abnormal code = 56288-3) [facility] Tylerycin Trough Level - Draw immediately prior to the 4TH dose, but, no more than 60 minutes before the 5TH dose. 2020-11-07 10:46:27 Test Item Value Reference Range Interpretation Comments VANCO TROUGH (test code 5.0 ug/mL 10.0-20.0 L = 0052167856) PATTI (test code = PATTI) Toxic Range: ?>20 ug/mL 15-20 ug/mL is recommended for severe infection or when Vancomycin ADALBERTO is greater than or equal to 2. Lab Interpretation (test Abnormal code = 09657-7) [facility] WITH [id number] 10:12:25 Test Item Value Reference Range Interpretation Comments WBC (test code = See_Comment H [Automated 5134-2) message] The system which generated this result transmit marcelina reference range : 4.20 - 10.70 10*3/?L. The reference range was not used to interpret this result as normal/abnormal . RBC (test code = See_Comment L [Automated 323-8) message] The system which generated this result transmit marcelina reference range : 4.26 - 5.52 10*6/?L. The reference range was not used to interpret this result as normal/abnormal . HGB (test code = 10.0 g/dL 12.2-16.4 L 718-7) HCT (test code = 29.9 % 38.4-49.3 L 4544-3) MCV (test code = 86.4 fL 81.7-95.6 787-2) MCH (test code = 28.9 pg 26.1-32.7 785-6) MCHC (test code = 33.4 g/dL 31.2-35.0 786-4) RDW-SD (test code = 39.9 fL 38.5-51.6 28365-0) RDW-CV (test code = 12.6 % 12.1-15.4 788-0) PLT (test code = See_Comment [Automated 777-3) message] The system which generated this result transmit marcelina reference range : 150 - 328 10*3/ ?L. The reference range was not u sed to interpret th is result as normal/abnormal . MPV (test code = 9.7 fL 9.8-13.0 L 50871-0) NRBC/100 WBC (test See_Comment [Automat ed code = 6191121535) message] The system which generated this result transmit marcelina reference range : 0.0 - 10.0 /100 WBCs. The reference range was not used to interpret this result as normal/abnormal . NRBC x10^3 (test code <0.01 See_Comment [Auto mated = 2791601917) message] The system which generated this result transmit marcelina reference range : 10*3/?L. The reference range was not used to interpret this result as normal/abnormal . GRAN MAT (NEUT) % 75.5 % (test code = 770-8) IMM GRAN % (test code 0.90 % = 2331159497) LYMPH % (test code = 13.1 % 736-9) MONO % (test code = 9.6 % 5905-5) EOS % (test code = 0.4 % 713-8) BASO % (test code = 0.5 % 706-2) GRAN MAT x10^3(ANC) 13.16 10*3/uL 1.99-6.95 H (test code = 5128005799) IMM GRAN x10^3 (test 0.15 10*3/uL 0.00-0.06 H code = 4699096606) LYMPH x10^3 (test code 2.29 10*3/uL 1.09-3.23 = 731-0) MONO x10^3 (test code 1.68 10*3/uL 0.36-1.02 H = 742-7) EOS x10^3 (test code = 0.07 10*3/uL 0.06-0.53 711-2) BASO x10^3 (test code 0.08 10*3/uL 0.01-0.09 = 704-7) BASO STIPPLING (test Present A code = 703-9) BANDS (test code = Increased A 4595786397) DOHLE BODIES (test Present A code = 7792-5) TOXIC CHANGES (test Present A code = 803-7) Lab Interpretation Abnormal (test code = 69504-0) [facility] WITH [id number] 10:12:25 Test Item Value Reference Range Interpretation Comments WBC (test code = See_Comment H [Automated 1390-2) message] The system which generated this result transmit marcelina reference range : 4.20 - 10.70 10*3/?L. The reference range was not used to interpret this result as normal/abnormal . RBC (test code = See_Comment L [Automated 789-8) message] The system which generated this result transmit marcelina reference range : 4.26 - 5.52 10*6/?L. The reference range was not used to interpret this result as normal/abnormal . HGB (test code = 10.0 g/dL 12.2-16.4 L 718-7) HCT (test code = 29.9 % 38.4-49.3 L 4544-3) MCV (test code = 86.4 fL 81.7-95.6 787-2) MCH (test code = 28.9 pg 26.1-32.7 785-6) MCHC (test code = 33.4 g/dL 31.2-35.0 786-4) RDW-SD (test code = 39.9 fL 38.5-51.6 78341-5) RDW-CV (test code = 12.6 % 12.1-15.4 788-0) PLT (test code = See_Comment [Automated 777-3) message] The system which generated this result transmit marcelina reference range : 150 - 328 10*3/ ?L. The reference range was not u sed to interpret th is result as normal/abnormal . MPV (test code = 9.7 fL 9.8-13.0 L 23437-4) NRBC/100 WBC (test See_Comment [Automat ed code = 9619454566) message] The system which generated this result transmit marcelina reference range : 0.0 - 10.0 /100 WBCs. The reference range was not used to interpret this result as normal/abnormal . NRBC x10^3 (test code <0.01 See_Comment [Auto mated = 0714528540) message] The system which generated this result transmit marcelina reference range : 10*3/?L. The reference range was not used to interpret this result as normal/abnormal . GRAN MAT (NEUT) % 75.5 % (test code = 770-8) IMM GRAN % (test code 0.90 % = 5308568434) LYMPH % (test code = 13.1 % 736-9) MONO % (test code = 9.6 % 5905-5) EOS % (test code = 0.4 % 713-8) BASO % (test code = 0.5 % 706-2) GRAN MAT x10^3(ANC) 13.16 10*3/uL 1.99-6.95 H (test code = 7331842646) IMM GRAN x10^3 (test 0.15 10*3/uL 0.00-0.06 H code = 0855599417) LYMPH x10^3 (test code 2.29 10*3/uL 1.09-3.23 = 731-0) MONO x10^3 (test code 1.68 10*3/uL 0.36-1.02 H = 742-7) EOS x10^3 (test code = 0.07 10*3/uL 0.06-0.53 711-2) BASO x10^3 (test code 0.08 10*3/uL 0.01-0.09 = 704-7) BASO STIPPLING (test Present A code = 703-9) BANDS (test code = Increased A 6236363817) DOHLE BODIES (test Present A code = 7792-5) TOXIC CHANGES (test Present A code = 803-7) Lab Interpretation Abnormal (test code = 30057-0) [facility] WITH [id number] 10:12:25 Test Item Value Reference Range Interpretation Comments WBC (test code = See_Comment H [Automated 6690-2) message] The system which generated this result transmit marcelina reference range : 4.20 - 10.70 10*3/?L. The reference range was not used to interpret this result as normal/abnormal . RBC (test code = See_Comment L [Automated 789-8) message] The system which generated this result transmit marcelina reference range : 4.26 - 5.52 10*6/?L. The reference range was not used to interpret this result as normal/abnormal . HGB (test code = 10.0 g/dL 12.2-16.4 L 718-7) HCT (test code = 29.9 % 38.4-49.3 L 4544-3) MCV (test code = 86.4 fL 81.7-95.6 787-2) MCH (test code = 28.9 pg 26.1-32.7 785-6) MCHC (test code = 33.4 g/dL 31.2-35.0 786-4) RDW-SD (test code = 39.9 fL 38.5-51.6 73600-4) RDW-CV (test code = 12.6 % 12.1-15.4 788-0) PLT (test code = See_Comment [Automated 777-3) message] The system which generated this result transmit marcelina reference range : 150 - 328 10*3/ ?L. The reference range was not u sed to interpret th is result as normal/abnormal . MPV (test code = 9.7 fL 9.8-13.0 L 61733-5) NRBC/100 WBC (test See_Comment [Automat ed code = 5122355844) message] The system which generated this result transmit marcelina reference range : 0.0 - 10.0 /100 WBCs. The reference range was not used to interpret this result as normal/abnormal . NRBC x10^3 (test code <0.01 See_Comment [Auto mated = 3868712310) message] The system which generated this result transmit marcelina reference range : 10*3/?L. The reference range was not used to interpret this result as normal/abnormal . GRAN MAT (NEUT) % 75.5 % (test code = 770-8) IMM GRAN % (test code 0.90 % = 5209110552) LYMPH % (test code = 13.1 % 736-9) MONO % (test code = 9.6 % 5905-5) EOS % (test code = 0.4 % 713-8) BASO % (test code = 0.5 % 706-2) GRAN MAT x10^3(ANC) 13.16 10*3/uL 1.99-6.95 H (test code = 0812279282) IMM GRAN x10^3 (test 0.15 10*3/uL 0.00-0.06 H code = 4146372069) LYMPH x10^3 (test code 2.29 10*3/uL 1.09-3.23 = 731-0) MONO x10^3 (test code 1.68 10*3/uL 0.36-1.02 H = 742-7) EOS x10^3 (test code = 0.07 10*3/uL 0.06-0.53 711-2) BASO x10^3 (test code 0.08 10*3/uL 0.01-0.09 = 704-7) BASO STIPPLING (test Present A code = 703-9) BANDS (test code = Increased A 1589464797) DOHLE BODIES (test Present A code = 7792-5) TOXIC CHANGES (test Present A code = 803-7) Lab Interpretation Abnormal (test code = 64566-9) [facility] WITH [id number] 10:12:25 Test Item Value Reference Range Interpretation Comments WBC (test code = See_Comment H [Automated 9490-2) message] The system which generated this result transmit marcelina reference range : 4.20 - 10.70 10*3/?L. The reference range was not used to interpret this result as normal/abnormal . RBC (test code = See_Comment L [Automated 729-8) message] The system which generated this result transmit marcelina reference range : 4.26 - 5.52 10*6/?L. The reference range was not used to interpret this result as normal/abnormal . HGB (test code = 10.0 g/dL 12.2-16.4 L 718-7) HCT (test code = 29.9 % 38.4-49.3 L 4544-3) MCV (test code = 86.4 fL 81.7-95.6 787-2) MCH (test code = 28.9 pg 26.1-32.7 785-6) MCHC (test code = 33.4 g/dL 31.2-35.0 786-4) RDW-SD (test code = 39.9 fL 38.5-51.6 95615-0) RDW-CV (test code = 12.6 % 12.1-15.4 788-0) PLT (test code = See_Comment [Automated 777-3) message] The system which generated this result transmit marcelina reference range : 150 - 328 10*3/ ?L. The reference range was not u sed to interpret th is result as normal/abnormal . MPV (test code = 9.7 fL 9.8-13.0 L 25120-2) NRBC/100 WBC (test See_Comment [Automat ed code = 8604070069) message] The system which generated this result transmit marcelina reference range : 0.0 - 10.0 /100 WBCs. The reference range was not used to interpret this result as normal/abnormal . NRBC x10^3 (test code <0.01 See_Comment [Auto mated = 3222413615) message] The system which generated this result transmit marcelina reference range : 10*3/?L. The reference range was not used to interpret this result as normal/abnormal . GRAN MAT (NEUT) % 75.5 % (test code = 770-8) IMM GRAN % (test code 0.90 % = 7524006817) LYMPH % (test code = 13.1 % 736-9) MONO % (test code = 9.6 % 5905-5) EOS % (test code = 0.4 % 713-8) BASO % (test code = 0.5 % 706-2) GRAN MAT x10^3(ANC) 13.16 10*3/uL 1.99-6.95 H (test code = 4486526284) IMM GRAN x10^3 (test 0.15 10*3/uL 0.00-0.06 H code = 4662052728) LYMPH x10^3 (test code 2.29 10*3/uL 1.09-3.23 = 731-0) MONO x10^3 (test code 1.68 10*3/uL 0.36-1.02 H = 742-7) EOS x10^3 (test code = 0.07 10*3/uL 0.06-0.53 711-2) BASO x10^3 (test code 0.08 10*3/uL 0.01-0.09 = 704-7) BASO STIPPLING (test Present A code = 703-9) BANDS (test code = Increased A 1611676907) DOHLE BODIES (test Present A code = 7792-5) TOXIC CHANGES (test Present A code = 803-7) Lab Interpretation Abnormal (test code = 05676-8) [facility] WITH [id number] 10:12:25 Test Item Value Reference Range Interpretation Comments WBC (test code = See_Comment H [Automated 6690-2) message] The system which generated this result transmit marcelina reference range : 4.20 - 10.70 10*3/?L. The reference range was not used to interpret this result as normal/abnormal . RBC (test code = See_Comment L [Automated 789-8) message] The system which generated this result transmit marcelina reference range : 4.26 - 5.52 10*6/?L. The reference range was not used to interpret this result as normal/abnormal . HGB (test code = 10.0 g/dL 12.2-16.4 L 718-7) HCT (test code = 29.9 % 38.4-49.3 L 4544-3) MCV (test code = 86.4 fL 81.7-95.6 787-2) MCH (test code = 28.9 pg 26.1-32.7 785-6) MCHC (test code = 33.4 g/dL 31.2-35.0 786-4) RDW-SD (test code = 39.9 fL 38.5-51.6 84427-3) RDW-CV (test code = 12.6 % 12.1-15.4 788-0) PLT (test code = See_Comment [Automated 777-3) message] The system which generated this result transmit marcelina reference range : 150 - 328 10*3/ ?L. The reference range was not u sed to interpret th is result as normal/abnormal . MPV (test code = 9.7 fL 9.8-13.0 L 94100-7) NRBC/100 WBC (test See_Comment [Automat ed code = 8679012360) message] The system which generated this result transmit marcelina reference range : 0.0 - 10.0 /100 WBCs. The reference range was not used to interpret this result as normal/abnormal . NRBC x10^3 (test code <0.01 See_Comment [Auto mated = 7736551686) message] The system which generated this result transmit marcelina reference range : 10*3/?L. The reference range was not used to interpret this result as normal/abnormal . GRAN MAT (NEUT) % 75.5 % (test code = 770-8) IMM GRAN % (test code 0.90 % = 3338447957) LYMPH % (test code = 13.1 % 736-9) MONO % (test code = 9.6 % 5905-5) EOS % (test code = 0.4 % 713-8) BASO % (test code = 0.5 % 706-2) GRAN MAT x10^3(ANC) 13.16 10*3/uL 1.99-6.95 H (test code = 7310504110) IMM GRAN x10^3 (test 0.15 10*3/uL 0.00-0.06 H code = 7706588272) LYMPH x10^3 (test code 2.29 10*3/uL 1.09-3.23 = 731-0) MONO x10^3 (test code 1.68 10*3/uL 0.36-1.02 H = 742-7) EOS x10^3 (test code = 0.07 10*3/uL 0.06-0.53 711-2) BASO x10^3 (test code 0.08 10*3/uL 0.01-0.09 = 704-7) BASO STIPPLING (test Present A code = 703-9) BANDS (test code = Increased A 5145056885) DOHLE BODIES (test Present A code = 7792-5) TOXIC CHANGES (test Present A code = 803-7) Lab Interpretation Abnormal (test code = 34617-2) [facility] METABOLIC PANEL (NA, K, CL, CO2, GLUCOSE, BUN, CREATININE, CA)2020-11-07 10:01:41 Test Item Value Reference Range Interpretation Comments NA (test code = 132 mmol/L 135-145 L 8069387386) K (test code = 3.6 mmol/L 3.5-5.0 3533910141) CL (test code = 100 mmol/L 98-108 5203880764) CO2 TOTAL (test code = 26 mmol/L 23-31 9611368784) AGAP (test code = 2-16 6931558668) BUN (test code = 12 mg/dL 7-23 8587141985) GLUCOSE (test code = 149 mg/dL 70-110 H 8776237630) CREATININE (test code = 0.46 mg/dL 0.60-1.25 L 6062909592) CALCIUM (test code = 8.2 mg/dL 8.6-10.6 L 9816662343) eGFR (test code = mL/min/1.73m2 8487427248) PATTI (test code = PATTI) Association of Glomerular Filtration Rate (GFR) and Staging of Kidney Disease* + --+ --+ ------+| GFR (mL/min/1.73 m2) ?| With Kidney Damage ?| ?Without Kidney Damage+ --------+ --------+ +| ?>90 ?| ?Stage one ?| ? Normal ?+ ---+ ---+ -------+| ?60-89 ?| ?Stage two ?| ? Decreased GFR ? + --+ --+ ------+| ?30-59 ?| ?Stage three ?| ? Stage three ? + --+ --+ ------+| ?15-29 ?| ?Stage four ? | ? Stage four ?+ ---+ ---+ -------+| ?<15 (or dialysis) ? ?| ?Stage five ? | ? Stage five ?+ ---+ ---+ -------+ *Each stage assumes the associated GFR level has been in effect for at least three months. ?Stages 1 to 5, with or without kidney disease, indicate chronic kidney disease. Notes: Determination of stages one and two (with eGFR >59mL/min/1.73 m2) requires estimation of kidney damage for at least three months as defined by structural or functional abnormalities of the kidney, manifested by either:Pathological abnormalities or Markers of kidney damage (including abnormalities in the composition of the blood or urine or abnormalities in imaging tests). Lab Interpretation Abnormal (test code = 01400-9) [facility] METABOLIC PANEL (NA, K, CL, CO2, GLUCOSE, BUN, CREATININE, CA)2020-11-07 10:01:41 Test Item Value Reference Range Interpretation Comments NA (test code = 132 mmol/L 135-145 L 8310686498) K (test code = 3.6 mmol/L 3.5-5.0 2678897267) CL (test code = 100 mmol/L 98-108 3186769992) CO2 TOTAL (test code = 26 mmol/L 23-31 2575104320) AGAP (test code = 2-16 3581397753) BUN (test code = 12 mg/dL 7-23 9356440319) GLUCOSE (test code = 149 mg/dL 70-110 H 9494808024) CREATININE (test code = 0.46 mg/dL 0.60-1.25 L 3804679177) CALCIUM (test code = 8.2 mg/dL 8.6-10.6 L 4104266323) eGFR (test code = mL/min/1.73m2 5699400960) PATTI (test code = PATTI) Association of Glomerular Filtration Rate (GFR) and Staging of Kidney Disease* + --+ --+ ------+| GFR (mL/min/1.73 m2) ?| With Kidney Damage ?| ?Without Kidney Damage+ --------+ --------+ +| ?>90 ?| ?Stage one ?| ? Normal ?+ ---+ ---+ -------+| ?60-89 ?| ?Stage two ?| ? Decreased GFR ? + --+ --+ ------+| ?30-59 ?| ?Stage three ?| ? Stage three ? + --+ --+ ------+| ?15-29 ?| ?Stage four ? | ? Stage four ?+ ---+ ---+ -------+| ?<15 (or dialysis) ? ?| ?Stage five ? | ? Stage five ?+ ---+ ---+ -------+ *Each stage assumes the associated GFR level has been in effect for at least three months. ?Stages 1 to 5, with or without kidney disease, indicate chronic kidney disease. Notes: Determination of stages one and two (with eGFR >59mL/min/1.73 m2) requires estimation of kidney damage for at least three months as defined by structural or functional abnormalities of the kidney, manifested by either:Pathological abnormalities or Markers of kidney damage (including abnormalities in the composition of the blood or urine or abnormalities in imaging tests). Lab Interpretation Abnormal (test code = 19420-2) [facility] METABOLIC PANEL (NA, K, CL, CO2, GLUCOSE, BUN, CREATININE, CA)2020-11-07 10:01:41 Test Item Value Reference Range Interpretation Comments NA (test code = 132 mmol/L 135-145 L 8192202564) K (test code = 3.6 mmol/L 3.5-5.0 4778476737) CL (test code = 100 mmol/L 98-108 1658448517) CO2 TOTAL (test code = 26 mmol/L 23-31 6774261817) AGAP (test code = 2-16 1707563775) BUN (test code = 12 mg/dL 7-23 8073541337) GLUCOSE (test code = 149 mg/dL 70-110 H 2736988575) CREATININE (test code = 0.46 mg/dL 0.60-1.25 L 2801914002) CALCIUM (test code = 8.2 mg/dL 8.6-10.6 L 6942882557) eGFR (test code = mL/min/1.73m2 5695598574) PATTI (test code = PATTI) Association of Glomerular Filtration Rate (GFR) and Staging of Kidney Disease* + --+ --+ ------+| GFR (mL/min/1.73 m2) ?| With Kidney Damage ?| ?Without Kidney Damage+ --------+ --------+ +| ?>90 ?| ?Stage one ?| ? Normal ?+ ---+ ---+ -------+| ?60-89 ?| ?Stage two ?| ? Decreased GFR ? + --+ --+ ------+| ?30-59 ?| ?Stage three ?| ? Stage three ? + --+ --+ ------+| ?15-29 ?| ?Stage four ? | ? Stage four ?+ ---+ ---+ -------+| ?<15 (or dialysis) ? ?| ?Stage five ? | ? Stage five ?+ ---+ ---+ -------+ *Each stage assumes the associated GFR level has been in effect for at least three months. ?Stages 1 to 5, with or without kidney disease, indicate chronic kidney disease. Notes: Determination of stages one and two (with eGFR >59mL/min/1.73 m2) requires estimation of kidney damage for at least three months as defined by structural or functional abnormalities of the kidney, manifested by either:Pathological abnormalities or Markers of kidney damage (including abnormalities in the composition of the blood or urine or abnormalities in imaging tests). Lab Interpretation Abnormal (test code = 70959-0) [facility] METABOLIC PANEL (NA, K, CL, CO2, GLUCOSE, BUN, CREATININE, CA)2020-11-07 10:01:41 Test Item Value Reference Range Interpretation Comments NA (test code = 132 mmol/L 135-145 L 4794581486) K (test code = 3.6 mmol/L 3.5-5.0 9266150597) CL (test code = 100 mmol/L 98-108 9899113631) CO2 TOTAL (test code = 26 mmol/L 23-31 3447846592) AGAP (test code = 2-16 0883936112) BUN (test code = 12 mg/dL 7-23 2511155732) GLUCOSE (test code = 149 mg/dL 70-110 H 3930209149) CREATININE (test code = 0.46 mg/dL 0.60-1.25 L 0108083083) CALCIUM (test code = 8.2 mg/dL 8.6-10.6 L 8987004997) eGFR (test code = mL/min/1.73m2 0498882675) PATTI (test code = PATTI) Association of Glomerular Filtration Rate (GFR) and Staging of Kidney Disease* + --+ --+ ------+| GFR (mL/min/1.73 m2) ?| With Kidney Damage ?| ?Without Kidney Damage+ --------+ --------+ +| ?>90 ?| ?Stage one ?| ? Normal ?+ ---+ ---+ -------+| ?60-89 ?| ?Stage two ?| ? Decreased GFR ? + --+ --+ ------+| ?30-59 ?| ?Stage three ?| ? Stage three ? + --+ --+ ------+| ?15-29 ?| ?Stage four ? | ? Stage four ?+ ---+ ---+ -------+| ?<15 (or dialysis) ? ?| ?Stage five ? | ? Stage five ?+ ---+ ---+ -------+ *Each stage assumes the associated GFR level has been in effect for at least three months. ?Stages 1 to 5, with or without kidney disease, indicate chronic kidney disease. Notes: Determination of stages one and two (with eGFR >59mL/min/1.73 m2) requires estimation of kidney damage for at least three months as defined by structural or functional abnormalities of the kidney, manifested by either:Pathological abnormalities or Markers of kidney damage (including abnormalities in the composition of the blood or urine or abnormalities in imaging tests). Lab Interpretation Abnormal (test code = 13093-4) [facility] METABOLIC PANEL (NA, K, CL, CO2, GLUCOSE, BUN, CREATININE, CA)2020-11-07 10:01:41 Test Item Value Reference Range Interpretation Comments NA (test code = 132 mmol/L 135-145 L 7464088379) K (test code = 3.6 mmol/L 3.5-5.0 6982551349) CL (test code = 100 mmol/L 98-108 7148952695) CO2 TOTAL (test code = 26 mmol/L 23-31 6132846194) AGAP (test code = 2-16 4714501922) BUN (test code = 12 mg/dL 7-23 8465236928) GLUCOSE (test code = 149 mg/dL 70-110 H 2132140441) CREATININE (test code = 0.46 mg/dL 0.60-1.25 L 1954330664) CALCIUM (test code = 8.2 mg/dL 8.6-10.6 L 0283250563) eGFR (test code = mL/min/1.73m2 1337703275) PATTI (test code = PATTI) Association of Glomerular Filtration Rate (GFR) and Staging of Kidney Disease* + --+ --+ ------+| GFR (mL/min/1.73 m2) ?| With Kidney Damage ?| ?Without Kidney Damage+ --------+ --------+ +| ?>90 ?| ?Stage one ?| ? Normal ?+ ---+ ---+ -------+| ?60-89 ?| ?Stage two ?| ? Decreased GFR ? + --+ --+ ------+| ?30-59 ?| ?Stage three ?| ? Stage three ? + --+ --+ ------+| ?15-29 ?| ?Stage four ? | ? Stage four ?+ ---+ ---+ -------+| ?<15 (or dialysis) ? ?| ?Stage five ? | ? Stage five ?+ ---+ ---+ -------+ *Each stage assumes the associated GFR level has been in effect for at least three months. ?Stages 1 to 5, with or without kidney disease, indicate chronic kidney disease. Notes: Determination of stages one and two (with eGFR >59mL/min/1.73 m2) requires estimation of kidney damage for at least three months as defined by structural or functional abnormalities of the kidney, manifested by either:Pathological abnormalities or Markers of kidney damage (including abnormalities in the composition of the blood or urine or abnormalities in imaging tests). Lab Interpretation Abnormal (test code = 46996-1) [facility] GLUCOSE (AUTOMATED)2020-11-07 09:05:35 Test Item Value Reference Range Interpretation Comments POCT GLU (test code = 1867091627) 154 mg/dL 70-110 H Lab Interpretation (test code = Abnormal 95805-3) [facility] GLUCOSE (AUTOMATED)2020-11-07 09:05:35 Test Item Value Reference Range Interpretation Comments POCT GLU (test code = 0242724213) 154 mg/dL 70-110 H Lab Interpretation (test code = Abnormal 05728-0) [facility] GLUCOSE (AUTOMATED)2020-11-07 09:05:35 Test Item Value Reference Range Interpretation Comments POCT GLU (test code = 3585321030) 154 mg/dL 70-110 H Lab Interpretation (test code = Abnormal 64758-9) [facility] GLUCOSE (AUTOMATED)2020-11-07 09:05:35 Test Item Value Reference Range Interpretation Comments POCT GLU (test code = 3650504624) 154 mg/dL 70-110 H Lab Interpretation (test code = Abnormal 31702-7) [facility] GLUCOSE (AUTOMATED)2020-11-07 09:05:35 Test Item Value Reference Range Interpretation Comments POCT GLU (test code = 6623145069) 154 mg/dL 70-110 H Lab Interpretation (test code = Abnormal 83964-4) [facility] GLUCOSE (AUTOMATED)2020-11-07 05:05:43 Test Item Value Reference Range Interpretation Comments POCT GLU (test code = 7128499395) 173 mg/dL 70-110 H Lab Interpretation (test code = Abnormal 89695-9) [facility] GLUCOSE (AUTOMATED)2020-11-07 05:05:43 Test Item Value Reference Range Interpretation Comments POCT GLU (test code = 6665797792) 173 mg/dL 70-110 H Lab Interpretation (test code = Abnormal 55523-6) [facility] GLUCOSE (AUTOMATED)2020-11-07 05:05:43 Test Item Value Reference Range Interpretation Comments POCT GLU (test code = 6060541901) 173 mg/dL 70-110 H Lab Interpretation (test code = Abnormal 92971-7) [facility] GLUCOSE (AUTOMATED)2020-11-07 05:05:43 Test Item Value Reference Range Interpretation Comments POCT GLU (test code = 6182451020) 173 mg/dL 70-110 H Lab Interpretation (test code = Abnormal 36557-8) [facility] GLUCOSE (AUTOMATED)2020-11-07 05:05:43 Test Item Value Reference Range Interpretation Comments POCT GLU (test code = 4305265341) 173 mg/dL 70-110 H Lab Interpretation (test code = Abnormal 01089-2) [facility] GLUCOSE (AUTOMATED)2020-11-07 00:37:01 Test Item Value Reference Range Interpretation Comments POCT GLU (test code = [id number]) 173 mg/dL 70-110 H Lab Interpretation (test code = Abnormal 90625-3) [facility] GLUCOSE (AUTOMATED)2020-11-07 00:37:01 Test Item Value Reference Range Interpretation Comments POCT GLU (test code = [id number]) 173 mg/dL 70-110 H Lab Interpretation (test code = Abnormal 82399-2) [facility] GLUCOSE (AUTOMATED)2020-11-07 00:37:01 Test Item Value Reference Range Interpretation Comments POCT GLU (test code = [id number]) 173 mg/dL 70-110 H Lab Interpretation (test code = Abnormal 36689-3) [facility] GLUCOSE (AUTOMATED)2020-11-07 00:37:01 Test Item Value Reference Range Interpretation Comments POCT GLU (test code = 5093721087) 173 mg/dL 70-110 H Lab Interpretation (test code = Abnormal 93513-9) [facility] GLUCOSE (AUTOMATED)2020-11-07 00:37:01 Test Item Value Reference Range Interpretation Comments POCT GLU (test code = 1703642291) 173 mg/dL 70-110 H Lab Interpretation (test code = Abnormal 06283-1) [facility] GLUCOSE (AUTOMATED)2020-11-06 23:12:23 Test Item Value Reference Range Interpretation Comments POCT GLU (test code = 1440356799) 327 mg/dL 70-110 H Lab Interpretation (test code = Abnormal 19056-7) [facility] GLUCOSE (AUTOMATED)2020-11-06 23:12:23 Test Item Value Reference Range Interpretation Comments POCT GLU (test code = 4549020702) 327 mg/dL 70-110 H Lab Interpretation (test code = Abnormal 63446-0) [facility] GLUCOSE (AUTOMATED)2020-11-06 23:12:23 Test Item Value Reference Range Interpretation Comments POCT GLU (test code = 5544076691) 327 mg/dL 70-110 H Lab Interpretation (test code = Abnormal 53353-9) [facility] GLUCOSE (AUTOMATED)2020-11-06 23:12:23 Test Item Value Reference Range Interpretation Comments POCT GLU (test code = 7984852762) 327 mg/dL 70-110 H Lab Interpretation (test code = Abnormal 31977-9) [facility] GLUCOSE (AUTOMATED)2020-11-06 23:12:23 Test Item Value Reference Range Interpretation Comments POCT GLU (test code = 4042739911) 327 mg/dL 70-110 H Lab Interpretation (test code = Abnormal 02219-8) [facility] GLUCOSE (AUTOMATED)2020-11-06 22:44:21 Test Item Value Reference Range Interpretation Comments POCT GLU (test code = 8276728784) 287 mg/dL 70-110 H Lab Interpretation (test code = Abnormal 05550-5) [facility] GLUCOSE (AUTOMATED)2020-11-06 22:44:21 Test Item Value Reference Range Interpretation Comments POCT GLU (test code = 1059983690) 287 mg/dL 70-110 H Lab Interpretation (test code = Abnormal 91282-7) [facility] GLUCOSE (AUTOMATED)2020-11-06 22:44:21 Test Item Value Reference Range Interpretation Comments POCT GLU (test code = 6417489756) 287 mg/dL 70-110 H Lab Interpretation (test code = Abnormal 58827-8) [facility] GLUCOSE (AUTOMATED)2020-11-06 22:44:21 Test Item Value Reference Range Interpretation Comments POCT GLU (test code = 6838092429) 287 mg/dL 70-110 H Lab Interpretation (test code = Abnormal 41645-2) [facility] GLUCOSE (AUTOMATED)2020-11-06 22:44:21 Test Item Value Reference Range Interpretation Comments POCT GLU (test code = 6405797559) 287 mg/dL 70-110 H Lab Interpretation (test code = Abnormal 34886-6) [facility] GLUCOSE (AUTOMATED)2020-11-06 20:12:38 Test Item Value Reference Range Interpretation Comments POCT GLU (test code = 8853058920) 276 mg/dL 70-110 H Lab Interpretation (test code = Abnormal 95006-7) [facility] GLUCOSE (AUTOMATED)2020-11-06 20:12:38 Test Item Value Reference Range Interpretation Comments POCT GLU (test code = 6512880721) 276 mg/dL 70-110 H Lab Interpretation (test code = Abnormal 74455-1) [facility] GLUCOSE (AUTOMATED)2020-11-06 20:12:38 Test Item Value Reference Range Interpretation Comments POCT GLU (test code = 9836630295) 276 mg/dL 70-110 H Lab Interpretation (test code = Abnormal 62959-5) [facility] GLUCOSE (AUTOMATED)2020-11-06 20:12:38 Test Item Value Reference Range Interpretation Comments POCT GLU (test code = 6027067503) 276 mg/dL 70-110 H Lab Interpretation (test code = Abnormal 53966-0) [facility] GLUCOSE (AUTOMATED)2020-11-06 20:12:38 Test Item Value Reference Range Interpretation Comments POCT GLU (test code = 0570488977) 276 mg/dL 70-110 H Lab Interpretation (test code = Abnormal 62635-8) [id number] 20:00:04 Signal alteration within the third digit proximal, middle and distalphalanges with overlying skin ulceration and gas worrisome forosteomyelitis with no other definitive changes of osteomyelitis. Cellulitis and myositis with no abscess. Image quality: Exam is severely limited secondary to patient motion. EXAM: MRI LEFT FOOT WITH AND WITHOUT IV CONTRAST HISTORY: Foot swelling, diabetic, osteomyelitis suspected, no prior imaging COMPARISON: Plain films dated 11/05/2020 TECHNIQUE AND FINDINGS: 3T multiplanar multiweighted MR imaging of the left foot was performed withutilization of 13 cc IV ProHance. Exam is limited secondary to severepatient motion. There is diminished T1 signal and increased T2 signalat the level of thethird digit proximal, middle and distal phalanges with marked atrophy ofthe overlying skin with dorsal subcutaneous gas and ulceration.Additionally, slight T2 signal increase is seenwithin the tarsal bones atthe level of the navicular, cuneiforms, cuboid and anterior calcaneus. MildT2 signal increase is also noted within the plantar first through thirdmetatarsal heads and the proximal phalanx of the second digit. Diffusesubcutaneous and intramuscular T2 signal increase seen throughout theforefoot with minimal post contrast-enhancement. [facility], Radiant Results Inft User - 11/06/2020 3:01 PM CDTEXAM:MRI LEFT FOOT WITH AND WITHOUT IV CONTRAST HISTORY: Foot swelling, diabetic, osteomyelitis suspected, no prior imagingCOMPARISON: Plain films dated 11/05/2020TECHNIQUE AND FINDINGS:3T mul tiplanar multiweighted MR imaging of the left foot was performed withutilization of 13 cc IV ProHance. Exam is limited secondary to severepatient motion.There is diminished T1 signal and increased T2 signal at the level of thethird digit proximal, middle and distal phalanges with marked atrophy ofthe overlying skin with dorsal subcutaneous gas and ulceration.Additionally, slight T2 signal increase isseen within the tarsal bones atthe level of the navicular, cuneiforms, cuboid and anterior calcaneus. MildT2 signal increase is also noted within the plantar first through thirdmetatarsal heads and theproximal phalanx of the second digit. Diffusesubcutaneous and intramuscular T2 signal increase seen throughout theforefoot with minimal post contrast- enhancement.IMPRESSIONSignal alteration within the third digit proximal, middle and distalphalanges with overlying skin ulceration and gas worrisome foro steomyelitis with no other definitive changes of osteomyelitis.Cellulitis and myositis with no abscess.Image quality: Exam is severely limited secondary to patient motion.[facility] 2020-11-06 20:00:04Signal alteration within the third digit proximal, middle and distalphalanges with overlying skin ulceration and gas worrisome forosteomyelitis with no other definitive changes of osteomyelitis. Cellulitis and myositis with no abscess. Image quality: Exam is severely limited secondary to patient motion. EXAM: MRI LEFT FOOT WITH AND WITHOUT IV CONTRAST HISTORY: Foot swelling, diabetic, osteomyelitis suspected, no prior imaging COMPARISON: Plain films dated 11/05/2020 TECHNIQUE AND FINDINGS: 3T multiplanar multiweighted MR imaging of the left foot was performed withutilization of 13 cc IV ProHance. Exam is limited secondary to severepatient motion. There is diminished T1 signal and increased T2 signalat the level of thethird digit proximal, middle and distal phalanges with marked atrophy ofthe overlying skin with dorsal subcutaneous gas and ulceration.Additionally, slight T2 signal increase is seen within the tarsal bones atthe level of the navicular, cuneiforms, cuboid and anterior calcaneus. MildT2 signal increase is also noted within the plantar first through thirdmetatarsal heads and the proximal phalanx of the second digit. Diffusesubcutaneous and intramuscular T2 signal increase seen throughout theforefoot with minimal post contrast-enhancement. [facility], Radiant Results Inft User - 11/06/2020 3:01 PM CDT EXAM:MRI LEFT FOOT WITH ANDWITHOUT IV CONTRAST HISTORY: Foot swelling, diabetic, osteomyelitis suspected, no prior imagingCOMPARISON: Plain films dated 11/05/2020TECHNIQUE AND FINDINGS:3T multiplanar multiweighted MR imaging of the left foot was performed withutilization of 13 cc IV ProHance. Exam is limited secondary to severepatient motion.There is diminished T1 signal and increased T2 signal at the level of thethird digit proximal, middle and distal phalanges with marked atrophy ofthe overlying skin with dorsal subcutaneous gas and ulceration.Additionally, slight T2 signal increase is seen within the tarsal bones atthe level of the navicular, cuneiforms, cuboid and anterior calcaneus. MildT2 signal increase is also noted within the plantar first through thirdmetatarsal heads and the proximal phalanx of the second digit. Di ffusesubcutaneous and intramuscular T2 signal increase seen throughout theforefoot with minimal postcontrast-enhancement.IMPRESSIONSignal alteration within the third digit proximal, middle and distalphalanges with overlying skin ulceration and gas worrisome forosteomyelitis with no other definitive changes of osteomyelitis.Cellulitis and myositis with no abscess.Image quality: Exam is severely limited secondary to patient motion.[facility] FOOT LEFT W WO [id number] 20:00:04Signal alteration within the third digit proximal, middle and distalphalanges with overlying skin ulceration and gas worrisome forosteomyelitis with no other definitive changes of osteomyelitis. Cellulitis and myositis with no abscess. Image quality: Exam is severely limited secondary to patient motion. EXAM: MRI LEFT FOOT WITH AND WITHOUT IV CONTRAST HISTORY: Foot swelling, diabetic, osteomyelitis suspected, no prior imaging COMPARISON: Plain films dated 11/05/2020 TECHNIQUE AND FINDINGS: 3T multiplanar multiweighted MR imaging of the left foot was performed withutilization of 13 cc IV ProHance. Exam is limited secondary to severepatient motion. There is diminished T1 signal and increased T2 signalat the level of thethird digit proximal, middle and distal phalanges with marked atrophy ofthe overlying skin with dorsal subcutaneous gas and ulceration.Additionally, slight T2 signal increase is seenwithin the tarsal bones atthe level of the navicular, cuneiforms, cuboid and anterior calcaneus. MildT2 signal increase is also noted within the plantar first through thirdmetatarsal heads and the proximal phalanx of the second digit. Diffusesubcutaneous and intramuscular T2 signal increase seen throughout theforefoot with minimal post contrast-enhancement. [facility], Radiant Results Inft User - 11/06/2020 3:01 PM CDT EXAM:MRI LEFT FOOT WITH ANDWITHOUT IV CONTRAST HISTORY: Foot swelling, diabetic, osteomyelitis suspected, no prior imagingCOMPARISON: Plain films dated 11/05/2020TECHNIQUE AND FINDINGS:3T multiplanar multiweighted MR imaging of the left foot was performed withutilization of 13 cc IV ProHance. Exam is limited secondary to severepatient motion.There is diminished T1 signal and increased T2 signal at the level of thethird digit proximal, middle and distal phalanges with marked atrophy ofthe overlying skin with dorsal subcutaneous gas and ulceration.Additionally, slight T2 signal increase is seen within the tarsal bones atthe level of the navicular, cuneiforms, cuboid and anterior calcaneus. MildT2 signal increase is also noted within the plantar first through thirdmetatarsal heads and the proximal phalanx of the second digit. Diffusesubcutaneous and intramuscular T2 signal increase seen throughout theforefoot with minimal postcontrast- enhancement.IMPRESSIONSignal alteration within the third digit proximal, middle and distalphalanges with overlying skin ulceration and gas worrisome forosteomyelitis with no other definitive changes of osteomyelitis.Cellulitis and myositis with no abscess.Image quality: Exam is severely limited secondary to patient motion.[facility] 2020-11-06 20:00:04Signal alteration within the third digit proximal, middle and distalphalanges with overlying skin ulceration and gas worrisome forosteomyelitis with no other definitive changes of osteomyelitis. Cellulitis and myositis with no abscess. Image quality: Exam is severely limited secondary to patient motion. EXAM: MRI LEFT FOOT WITH AND WITHOUT IV CONTRAST HISTORY: Foot swelling, diabetic, osteomyelitis suspected, no prior imaging COMPARISON: Plain films dated 11/05/2020 TECHNIQUE AND FINDINGS: 3T multiplanar multiweighted MR imaging of the left foot was performed withutilization of 13 cc IV ProHance. Exam is limited secondary to severepatient motion. There is diminished T1 signal and increased T2 signalat the level of thethird digit proximal, middle and distal phalanges with marked atrophy ofthe overlying skin with dorsal subcutaneous gas and ulceration.Additionally, slight T2 signal increase is seen within the tarsal bones atthe level of the navicular, cuneiforms, cuboid and anterior calcaneus. MildT2 signal increase is also noted within the plantar first through thirdmetatarsal heads and the proximal phalanx of the second digit. Diffusesubcutaneous and intramuscular T2 signal increase seen throughout theforefoot with minimal post contrast-enhancement. [facility], [facility]iant Results Inft User - 11/06/2020 3:01 PM CDTEXAM:MRI LEFT FOOT WITH AND WITHOUT IV CONTRAST HISTORY: Foot swelling, diabetic, osteomyelitis suspected, no prior imagingCOMPARISON: Plain films dated 11/05/2020TECHNIQUE AND FINDINGS:3T mul tiplanar multiweighted MR imaging of the left foot was performed withutilization of 13 cc IV ProHance. Exam is limited secondary to severepatient motion.There is diminished T1 signal and increased T2 signal at the level of thethird digit proximal, middle and distal phalanges with marked atrophy ofthe overlying skin with dorsal subcutaneous gas and ulceration.Additionally, slight T2 signal increase isseen within the tarsal bones atthe level of the navicular, cuneiforms, cuboid and anterior calcaneus. MildT2 signal increase is also noted within the plantar first through thirdmetatarsal heads and theproximal phalanx of the second digit. Diffusesubcutaneous and intramuscular T2 signal increase seen throughout theforefoot with minimal post contrast- enhancement.IMPRESSIONSignal alteration within the third digit proximal, middle and distalphalanges with overlying skin ulceration and gas worrisome foro steomyelitis with no other definitive changes of osteomyelitis.Cellulitis and myositis with no abscess.Image quality: Exam is severely limited secondary to patient motion.[facility] 2020-11-06 20:00:04Signal alteration within the third digit proximal, middle and distalphalanges with overlying skin ulceration and gas worrisome forosteomyelitis with no other definitive changes of osteomyelitis. Cellulitis and myositis with no abscess. Image quality: Exam is severely limited secondary to patient motion. EXAM: MRI LEFT FOOT WITH AND WITHOUT IV CONTRAST HISTORY: Foot swelling, diabetic, osteomyelitis suspected, no prior imaging COMPARISON: Plain films dated 11/05/2020 TECHNIQUE AND FINDINGS: 3T multiplanar multiweighted MR imaging of the left foot was performed withutilization of 13 cc IV ProHance. Exam is limited secondary to severepatient motion. There is diminished T1 signal and increased T2 signalat the level of thethird digit proximal, middle and distal phalanges with marked atrophy ofthe overlying skin with dorsal subcutaneous gas and ulceration.Additionally, slight T2 signal increase is seen within the tarsal bones atthe level of the navicular, cuneiforms, cuboid and anterior calcaneus. MildT2 signal increase is also noted within the plantar first through thirdmetatarsal heads and the proximal phalanx of the second digit. Diffusesubcutaneous and intramuscular T2 signal increase seen throughout theforefoot with minimal post contrast-enhancement. [facility], Radiant Results Inft User - 11/06/2020 3:01 PM CDTEXAM:MRI LEFT FOOT WITH AND WITHOUT IV CONTRAST HISTORY: Foot swelling, diabetic, osteomyelitis suspected, no prior imagingCOMPARISON: Plain films dated 11/05/2020TECHNIQUE AND FINDINGS:3T mul tiplanar multiweighted MR imaging of the left foot was performed withutilization of 13 cc IV ProHance. Exam is limited secondary to severepatient motion.There is diminished T1 signal and increased T2 signal at the level of thethird digit proximal, middle and distal phalanges with marked atrophy ofthe overlying skin with dorsal subcutaneous gas and ulceration.Additionally, slight T2 signal increase isseen within the tarsal bones atthe level of the navicular, cuneiforms, cuboid and anterior calcaneus. MildT2 signal increase is also noted within the plantar first through thirdmetatarsal heads and theproximal phalanx of the second digit. Diffusesubcutaneous and intramuscular T2 signal increase seen throughout theforefoot with minimal post contrast- enhancement.IMPRESSIONSignal alteration within the third digit proximal, middle and distalphalanges with overlying skin ulceration and gas worrisome foro steomyelitis with no other definitive changes of osteomyelitis.Cellulitis and myositis with no abscess.Image quality: Exam is severely limited secondary to patient motion.[facility] GLUCOSE (AUTOMATED) 2020-11-06 16:21:00 Test Item Value Reference Range Interpretation Comments POCT GLU (test code = 4536170259) 173 mg/dL 70-110 H Lab Interpretation (test code = Abnormal 01349-5) [facility] GLUCOSE (AUTOMATED)2020-11-06 16:21:00 Test Item Value Reference Range Interpretation Comments POCT GLU (test code = 3186790691) 173 mg/dL 70-110 H Lab Interpretation (test code = Abnormal 86516-3) [facility] GLUCOSE (AUTOMATED)2020-11-06 16:21:00 Test Item Value Reference Range Interpretation Comments POCT GLU (test code = 4442831497) 173 mg/dL 70-110 H Lab Interpretation (test code = Abnormal 51448-4) [facility] GLUCOSE (AUTOMATED)2020-11-06 16:21:00 Test Item Value Reference Range Interpretation Comments POCT GLU (test code = 8092901141) 173 mg/dL 70-110 H Lab Interpretation (test code = Abnormal 56176-3) [facility] GLUCOSE (AUTOMATED)2020-11-06 16:21:00 Test Item Value Reference Range Interpretation Comments POCT GLU (test code = 4971445264) 173 mg/dL 70-110 H Lab Interpretation (test code = Abnormal 58512-7) [facility] GLUCOSE (AUTOMATED)2020-11-06 14:54:57 Test Item Value Reference Range Interpretation Comments POCT GLU (test code = 4005405306) 200 mg/dL 70-110 H Lab Interpretation (test code = Abnormal 03648-4) [facility] GLUCOSE (AUTOMATED)2020-11-06 14:54:57 Test Item Value Reference Range Interpretation Comments POCT GLU (test code = 6061135578) 200 mg/dL 70-110 H Lab Interpretation (test code = Abnormal 01457-5) [facility] GLUCOSE (AUTOMATED)2020-11-06 14:54:57 Test Item Value Reference Range Interpretation Comments POCT GLU (test code = 9548116645) 200 mg/dL 70-110 H Lab Interpretation (test code = Abnormal 48254-0) [facility] GLUCOSE (AUTOMATED)2020-11-06 14:54:57 Test Item Value Reference Range Interpretation Comments POCT GLU (test code = 4222406315) 200 mg/dL 70-110 H Lab Interpretation (test code = Abnormal 47621-4) [facility] GLUCOSE (AUTOMATED)2020-11-06 14:54:57 Test Item Value Reference Range Interpretation Comments POCT GLU (test code = 3695336819) 200 mg/dL 70-110 H Lab Interpretation (test code = Abnormal 80104-9) [facility] METABOLIC PANEL (NA, K, CL, CO2, GLUCOSE, BUN, CREATININE, CA)2020-11-06 14:53:26 Test Item Value Reference Range Interpretation Comments NA (test code = 133 mmol/L 135-145 L 0314992392) K (test code = 4.1 mmol/L 3.5-5.0 0630308371) CL (test code = 99 mmol/L 98-108 2689283216) CO2 TOTAL (test code = 25 mmol/L 23-31 9260488777) AGAP (test code = 2-16 9462400954) BUN (test code = 16 mg/dL 7-23 2145126930) GLUCOSE (test code = 219 mg/dL 70-110 H 2315236062) CREATININE (test code = 0.60 mg/dL 0.60-1.25 3258894741) CALCIUM (test code = 8.7 mg/dL 8.6-10.6 6535865097) eGFR (test code = mL/min/1.73m2 7284899250) PATTI (test code = PATTI) Association of Glomerular Filtration Rate (GFR) and Staging of Kidney Disease* + --+ --+ ------+| GFR (mL/min/1.73 m2) ?| With Kidney Damage ?| ?Without Kidney Damage+ --------+ --------+ +| ?>90 ?| ?Stage one ?| ? Normal ?+ ---+ ---+ -------+| ?60-89 ?| ?Stage two ?| ? Decreased GFR ? + --+ --+ ------+| ?30-59 ?| ?Stage three ?| ? Stage three ? + --+ --+ ------+| ?15-29 ?| ?Stage four ? | ? Stage four ?+ ---+ ---+ -------+| ?<15 (or dialysis) ? ?| ?Stage five ? | ? Stage five ?+ ---+ ---+ -------+ *Each stage assumes the associated GFR level has been in effect for at least three months. ?Stages 1 to 5, with or without kidney disease, indicate chronic kidney disease. Notes: Determination of stages one and two (with eGFR >59mL/min/1.73 m2) requires estimation of kidney damage for at least three months as defined by structural or functional abnormalities of the kidney, manifested by either:Pathological abnormalities or Markers of kidney damage (including abnormalities in the composition of the blood or urine or abnormalities in imaging tests). Lab Interpretation Abnormal (test code = 75785-8) [facility] METABOLIC PANEL (NA, K, CL, CO2, GLUCOSE, BUN, CREATININE, CA)2020-11-06 14:53:26 Test Item Value Reference Range Interpretation Comments NA (test code = 133 mmol/L 135-145 L 6601546436) K (test code = 4.1 mmol/L 3.5-5.0 8813979194) CL (test code = 99 mmol/L 98-108 6429391004) CO2 TOTAL (test code = 25 mmol/L 23-31 4860337524) AGAP (test code = 2-16 4284858376) BUN (test code = 16 mg/dL 7-23 0741773919) GLUCOSE (test code = 219 mg/dL 70-110 H 7530548716) CREATININE (test code = 0.60 mg/dL 0.60-1.25 2127689772) CALCIUM (test code = 8.7 mg/dL 8.6-10.6 7592167334) eGFR (test code = mL/min/1.73m2 0694611049) PATTI (test code = PATTI) Association of Glomerular Filtration Rate (GFR) and Staging of Kidney Disease* + --+ --+ ------+| GFR (mL/min/1.73 m2) ?| With Kidney Damage ?| ?Without Kidney Damage+ --------+ --------+ +| ?>90 ?| ?Stage one ?| ? Normal ?+ ---+ ---+ -------+| ?60-89 ?| ?Stage two ?| ? Decreased GFR ? + --+ --+ ------+| ?30-59 ?| ?Stage three ?| ? Stage three ? + --+ --+ ------+| ?15-29 ?| ?Stage four ? | ? Stage four ?+ ---+ ---+ -------+| ?<15 (or dialysis) ? ?| ?Stage five ? | ? Stage five ?+ ---+ ---+ -------+ *Each stage assumes the associated GFR level has been in effect for at least three months. ?Stages 1 to 5, with or without kidney disease, indicate chronic kidney disease. Notes: Determination of stages one and two (with eGFR >59mL/min/1.73 m2) requires estimation of kidney damage for at least three months as defined by structural or functional abnormalities of the kidney, manifested by either:Pathological abnormalities or Markers of kidney damage (including abnormalities in the composition of the blood or urine or abnormalities in imaging tests). Lab Interpretation Abnormal (test code = 95888-1) [facility] METABOLIC PANEL (NA, K, CL, CO2, GLUCOSE, BUN, CREATININE, CA)2020-11-06 14:53:26 Test Item Value Reference Range Interpretation Comments NA (test code = 133 mmol/L 135-145 L 4061436912) K (test code = 4.1 mmol/L 3.5-5.0 9759796278) CL (test code = 99 mmol/L 98-108 8014055036) CO2 TOTAL (test code = 25 mmol/L 23-31 1353844395) AGAP (test code = 2-16 7678388193) BUN (test code = 16 mg/dL 7-23 0193284129) GLUCOSE (test code = 219 mg/dL 70-110 H 5874913746) CREATININE (test code = 0.60 mg/dL 0.60-1.25 0437918396) CALCIUM (test code = 8.7 mg/dL 8.6-10.6 8383137335) eGFR (test code = mL/min/1.73m2 2798400890) PATTI (test code = PATTI) Association of Glomerular Filtration Rate (GFR) and Staging of Kidney Disease* + --+ --+ ------+| GFR (mL/min/1.73 m2) ?| With Kidney Damage ?| ?Without Kidney Damage+ --------+ --------+ +| ?>90 ?| ?Stage one ?| ? Normal ?+ ---+ ---+ -------+| ?60-89 ?| ?Stage two ?| ? Decreased GFR ? + --+ --+ ------+| ?30-59 ?| ?Stage three ?| ? Stage three ? + --+ --+ ------+| ?15-29 ?| ?Stage four ? | ? Stage four ?+ ---+ ---+ -------+| ?<15 (or dialysis) ? ?| ?Stage five ? | ? Stage five ?+ ---+ ---+ -------+ *Each stage assumes the associated GFR level has been in effect for at least three months. ?Stages 1 to 5, with or without kidney disease, indicate chronic kidney disease. Notes: Determination of stages one and two (with eGFR >59mL/min/1.73 m2) requires estimation of kidney damage for at least three months as defined by structural or functional abnormalities of the kidney, manifested by either:Pathological abnormalities or Markers of kidney damage (including abnormalities in the composition of the blood or urine or abnormalities in imaging tests). Lab Interpretation Abnormal (test code = 45461-6) [facility] METABOLIC PANEL (NA, K, CL, CO2, GLUCOSE, BUN, CREATININE, CA)2020-11-06 14:53:26 Test Item Value Reference Range Interpretation Comments NA (test code = 133 mmol/L 135-145 L 7567779752) K (test code = 4.1 mmol/L 3.5-5.0 4987000201) CL (test code = 99 mmol/L 98-108 9945820002) CO2 TOTAL (test code = 25 mmol/L 23-31 1134639855) AGAP (test code = 2-16 7917207405) BUN (test code = 16 mg/dL 7-23 0769440827) GLUCOSE (test code = 219 mg/dL 70-110 H 3503079268) CREATININE (test code = 0.60 mg/dL 0.60-1.25 4955367555) CALCIUM (test code = 8.7 mg/dL 8.6-10.6 8357369163) eGFR (test code = mL/min/1.73m2 4975092862) PATTI (test code = PATTI) Association of Glomerular Filtration Rate (GFR) and Staging of Kidney Disease* + --+ --+ ------+| GFR (mL/min/1.73 m2) ?| With Kidney Damage ?| ?Without Kidney Damage+ --------+ --------+ +| ?>90 ?| ?Stage one ?| ? Normal ?+ ---+ ---+ -------+| ?60-89 ?| ?Stage two ?| ? Decreased GFR ? + --+ --+ ------+| ?30-59 ?| ?Stage three ?| ? Stage three ? + --+ --+ ------+| ?15-29 ?| ?Stage four ? | ? Stage four ?+ ---+ ---+ -------+| ?<15 (or dialysis) ? ?| ?Stage five ? | ? Stage five ?+ ---+ ---+ -------+ *Each stage assumes the associated GFR level has been in effect for at least three months. ?Stages 1 to 5, with or without kidney disease, indicate chronic kidney disease. Notes: Determination of stages one and two (with eGFR >59mL/min/1.73 m2) requires estimation of kidney damage for at least three months as defined by structural or functional abnormalities of the kidney, manifested by either:Pathological abnormalities or Markers of kidney damage (including abnormalities in the composition of the blood or urine or abnormalities in imaging tests). Lab Interpretation Abnormal (test code = 98729-7) [facility] METABOLIC PANEL (NA, K, CL, CO2, GLUCOSE, BUN, CREATININE, CA)2020-11-06 14:53:26 Test Item Value Reference Range Interpretation Comments NA (test code = 133 mmol/L 135-145 L 5297095621) K (test code = 4.1 mmol/L 3.5-5.0 8275280560) CL (test code = 99 mmol/L 98-108 8955743952) CO2 TOTAL (test code = 25 mmol/L 23-31 4001177961) AGAP (test code = 2-16 9606214570) BUN (test code = 16 mg/dL 7-23 2521487423) GLUCOSE (test code = 219 mg/dL 70-110 H 4311024214) CREATININE (test code = 0.60 mg/dL 0.60-1.25 5621360448) CALCIUM (test code = 8.7 mg/dL 8.6-10.6 1405610349) eGFR (test code = mL/min/1.73m2 4685291959) PATTI (test code = PATTI) Association of Glomerular Filtration Rate (GFR) and Staging of Kidney Disease* + --+ --+ ------+| GFR (mL/min/1.73 m2) ?| With Kidney Damage ?| ?Without Kidney Damage+ --------+ --------+ +| ?>90 ?| ?Stage one ?| ? Normal ?+ ---+ ---+ -------+| ?60-89 ?| ?Stage two ?| ? Decreased GFR ? + --+ --+ ------+| ?30-59 ?| ?Stage three ?| ? Stage three ? + --+ --+ ------+| ?15-29 ?| ?Stage four ? | ? Stage four ?+ ---+ ---+ -------+| ?<15 (or dialysis) ? ?| ?Stage five ? | ? Stage five ?+ ---+ ---+ -------+ *Each stage assumes the associated GFR level has been in effect for at least three months. ?Stages 1 to 5, with or without kidney disease, indicate chronic kidney disease. Notes: Determination of stages one and two (with eGFR >59mL/min/1.73 m2) requires estimation of kidney damage for at least three months as defined by structural or functional abnormalities of the kidney, manifested by either:Pathological abnormalities or Markers of kidney damage (including abnormalities in the composition of the blood or urine or abnormalities in imaging tests). Lab Interpretation Abnormal (test code = 09566-2) [facility] WITH [id number] 14:53:11 Test Item Value Reference Range Interpretation Comments WBC (test code = See_Comment H [Automated 4668-2) message] The system which generated this result transmit marcelina reference range : 4.20 - 10.70 10*3/?L. The reference range was not used to interpret this result as normal/abnormal . RBC (test code = See_Comment L [Automated 045-8) message] The system which generated this result transmit marcelina reference range : 4.26 - 5.52 10*6/?L. The reference range was not used to interpret this result as normal/abnormal . HGB (test code = 10.6 g/dL 12.2-16.4 L 718-7) HCT (test code = 31.9 % 38.4-49.3 L 4544-3) MCV (test code = 87.4 fL 81.7-95.6 787-2) MCH (test code = 29.0 pg 26.1-32.7 785-6) MCHC (test code = 33.2 g/dL 31.2-35.0 786-4) RDW-SD (test code = 40.3 fL 38.5-51.6 34829-8) RDW-CV (test code = 12.5 % 12.1-15.4 788-0) PLT (test code = See_Comment H [Automated 777-3) message] The system which generated this result transmit marcelina reference range : 150 - 328 10*3/ ?L. The reference range was not u sed to interpret th is result as normal/abnormal . MPV (test code = 10.1 fL 9.8-13.0 61284-3) NRBC/100 WBC (test See_Comment [Automat ed code = 4686303474) message] The system which generated this result transmit marcelina reference range : 0.0 - 10.0 /100 WBCs. The reference range was not used to interpret this result as normal/abnormal . NRBC x10^3 (test code <0.01 See_Comment [Auto mated = 1997815506) message] The system which generated this result transmit marcelina reference range : 10*3/?L. The reference range was not used to interpret this result as normal/abnormal . GRAN MAT (NEUT) % 80.2 % (test code = 770-8) IMM GRAN % (test code 1.40 % = 0398204975) LYMPH % (test code = 9.5 % 736-9) MONO % (test code = 8.4 % 5905-5) EOS % (test code = 0.1 % 713-8) BASO % (test code = 0.4 % 706-2) GRAN MAT x10^3(ANC) 14.88 10*3/uL 1.99-6.95 H (test code = 3301901268) IMM GRAN x10^3 (test 0.26 10*3/uL 0.00-0.06 H code = 9017367964) LYMPH x10^3 (test code 1.76 10*3/uL 1.09-3.23 = 731-0) MONO x10^3 (test code 1.55 10*3/uL 0.36-1.02 H = 742-7) EOS x10^3 (test code = <0.03 0.06-0.53 L 711-2) BASO x10^3 (test code 0.07 10*3/uL 0.01-0.09 = 704-7) Lab Interpretation Abnormal (test code = 67584-8) [facility] WITH [id number] 14:53:11 Test Item Value Reference Range Interpretation Comments WBC (test code = See_Comment H [Automated 6690-2) message] The system which generated this result transmit marcelina reference range : 4.20 - 10.70 10*3/?L. The reference range was not used to interpret this result as normal/abnormal . RBC (test code = See_Comment L [Automated 789-8) message] The system which generated this result transmit marcelina reference range : 4.26 - 5.52 10*6/?L. The reference range was not used to interpret this result as normal/abnormal . HGB (test code = 10.6 g/dL 12.2-16.4 L 718-7) HCT (test code = 31.9 % 38.4-49.3 L 4544-3) MCV (test code = 87.4 fL 81.7-95.6 787-2) MCH (test code = 29.0 pg 26.1-32.7 785-6) MCHC (test code = 33.2 g/dL 31.2-35.0 786-4) RDW-SD (test code = 40.3 fL 38.5-51.6 40567-4) RDW-CV (test code = 12.5 % 12.1-15.4 788-0) PLT (test code = See_Comment H [Automated 777-3) message] The system which generated this result transmit marcelina reference range : 150 - 328 10*3/ ?L. The reference range was not u sed to interpret th is result as normal/abnormal . MPV (test code = 10.1 fL 9.8-13.0 19456-7) NRBC/100 WBC (test See_Comment [Automat ed code = 6472265703) message] The system which generated this result transmit marcelina reference range : 0.0 - 10.0 /100 WBCs. The reference range was not used to interpret this result as normal/abnormal . NRBC x10^3 (test code <0.01 See_Comment [Auto mated = 3046652157) message] The system which generated this result transmit marcelina reference range : 10*3/?L. The reference range was not used to interpret this result as normal/abnormal . GRAN MAT (NEUT) % 80.2 % (test code = 770-8) IMM GRAN % (test code 1.40 % = 8993496570) LYMPH % (test code = 9.5 % 736-9) MONO % (test code = 8.4 % 5905-5) EOS % (test code = 0.1 % 713-8) BASO % (test code = 0.4 % 706-2) GRAN MAT x10^3(ANC) 14.88 10*3/uL 1.99-6.95 H (test code = 2261026748) IMM GRAN x10^3 (test 0.26 10*3/uL 0.00-0.06 H code = 5517105906) LYMPH x10^3 (test code 1.76 10*3/uL 1.09-3.23 = 731-0) MONO x10^3 (test code 1.55 10*3/uL 0.36-1.02 H = 742-7) EOS x10^3 (test code = <0.03 0.06-0.53 L 711-2) BASO x10^3 (test code 0.07 10*3/uL 0.01-0.09 = 704-7) Lab Interpretation Abnormal (test code = 12645-6) [facility] WITH [id number] 14:53:11 Test Item Value Reference Range Interpretation Comments WBC (test code = See_Comment H [Automated 2290-2) message] The system which generated this result transmit marcelina reference range : 4.20 - 10.70 10*3/?L. The reference range was not used to interpret this result as normal/abnormal . RBC (test code = See_Comment L [Automated 789-8) message] The system which generated this result transmit marcelina reference range : 4.26 - 5.52 10*6/?L. The reference range was not used to interpret this result as normal/abnormal . HGB (test code = 10.6 g/dL 12.2-16.4 L 718-7) HCT (test code = 31.9 % 38.4-49.3 L 4544-3) MCV (test code = 87.4 fL 81.7-95.6 787-2) MCH (test code = 29.0 pg 26.1-32.7 785-6) MCHC (test code = 33.2 g/dL 31.2-35.0 786-4) RDW-SD (test code = 40.3 fL 38.5-51.6 29429-4) RDW-CV (test code = 12.5 % 12.1-15.4 788-0) PLT (test code = See_Comment H [Automated 777-3) message] The system which generated this result transmit marcelina reference range : 150 - 328 10*3/ ?L. The reference range was not u sed to interpret th is result as normal/abnormal . MPV (test code = 10.1 fL 9.8-13.0 14548-2) NRBC/100 WBC (test See_Comment [Automat ed code = 7601978029) message] The system which generated this result transmit marcelina reference range : 0.0 - 10.0 /100 WBCs. The reference range was not used to interpret this result as normal/abnormal . NRBC x10^3 (test code <0.01 See_Comment [Auto mated = 3798874557) message] The system which generated this result transmit marcelina reference range : 10*3/?L. The reference range was not used to interpret this result as normal/abnormal . GRAN MAT (NEUT) % 80.2 % (test code = 770-8) IMM GRAN % (test code 1.40 % = 9937538895) LYMPH % (test code = 9.5 % 736-9) MONO % (test code = 8.4 % 5905-5) EOS % (test code = 0.1 % 713-8) BASO % (test code = 0.4 % 706-2) GRAN MAT x10^3(ANC) 14.88 10*3/uL 1.99-6.95 H (test code = 3696549918) IMM GRAN x10^3 (test 0.26 10*3/uL 0.00-0.06 H code = 0682485352) LYMPH x10^3 (test code 1.76 10*3/uL 1.09-3.23 = 731-0) MONO x10^3 (test code 1.55 10*3/uL 0.36-1.02 H = 742-7) EOS x10^3 (test code = <0.03 0.06-0.53 L 711-2) BASO x10^3 (test code 0.07 10*3/uL 0.01-0.09 = 704-7) Lab Interpretation Abnormal (test code = 13482-8) [facility] WITH [id number] 14:53:11 Test Item Value Reference Range Interpretation Comments WBC (test code = See_Comment H [Automated 6690-2) message] The system which generated this result transmit marcelina reference range : 4.20 - 10.70 10*3/?L. The reference range was not used to interpret this result as normal/abnormal . RBC (test code = See_Comment L [Automated 789-8) message] The system which generated this result transmit marcelina reference range : 4.26 - 5.52 10*6/?L. The reference range was not used to interpret this result as normal/abnormal . HGB (test code = 10.6 g/dL 12.2-16.4 L 718-7) HCT (test code = 31.9 % 38.4-49.3 L 4544-3) MCV (test code = 87.4 fL 81.7-95.6 787-2) MCH (test code = 29.0 pg 26.1-32.7 785-6) MCHC (test code = 33.2 g/dL 31.2-35.0 786-4) RDW-SD (test code = 40.3 fL 38.5-51.6 53603-0) RDW-CV (test code = 12.5 % 12.1-15.4 788-0) PLT (test code = See_Comment H [Automated 777-3) message] The system which generated this result transmit marcelina reference range : 150 - 328 10*3/ ?L. The reference range was not u sed to interpret th is result as normal/abnormal . MPV (test code = 10.1 fL 9.8-13.0 40235-6) NRBC/100 WBC (test See_Comment [Automat ed code = 1452224616) message] The system which generated this result transmit marcelina reference range : 0.0 - 10.0 /100 WBCs. The reference range was not used to interpret this result as normal/abnormal . NRBC x10^3 (test code <0.01 See_Comment [Auto mated = 6568435801) message] The system which generated this result transmit marcelina reference range : 10*3/?L. The reference range was not used to interpret this result as normal/abnormal . GRAN MAT (NEUT) % 80.2 % (test code = 770-8) IMM GRAN % (test code 1.40 % = 2987752253) LYMPH % (test code = 9.5 % 736-9) MONO % (test code = 8.4 % 5905-5) EOS % (test code = 0.1 % 713-8) BASO % (test code = 0.4 % 706-2) GRAN MAT x10^3(ANC) 14.88 10*3/uL 1.99-6.95 H (test code = 2400181975) IMM GRAN x10^3 (test 0.26 10*3/uL 0.00-0.06 H code = 5005680802) LYMPH x10^3 (test code 1.76 10*3/uL 1.09-3.23 = 731-0) MONO x10^3 (test code 1.55 10*3/uL 0.36-1.02 H = 742-7) EOS x10^3 (test code = <0.03 0.06-0.53 L 711-2) BASO x10^3 (test code 0.07 10*3/uL 0.01-0.09 = 704-7) Lab Interpretation Abnormal (test code = 02025-2) [facility] WITH [id number] 14:53:11 Test Item Value Reference Range Interpretation Comments WBC (test code = See_Comment H [Automated 6690-2) message] The system which generated this result transmit marcelina reference range : 4.20 - 10.70 10*3/?L. The reference range was not used to interpret this result as normal/abnormal . RBC (test code = See_Comment L [Automated 789-8) message] The system which generated this result transmit marcelina reference range : 4.26 - 5.52 10*6/?L. The reference range was not used to interpret this result as normal/abnormal . HGB (test code = 10.6 g/dL 12.2-16.4 L 718-7) HCT (test code = 31.9 % 38.4-49.3 L 4544-3) MCV (test code = 87.4 fL 81.7-95.6 787-2) MCH (test code = 29.0 pg 26.1-32.7 785-6) MCHC (test code = 33.2 g/dL 31.2-35.0 786-4) RDW-SD (test code = 40.3 fL 38.5-51.6 93024-7) RDW-CV (test code = 12.5 % 12.1-15.4 788-0) PLT (test code = See_Comment H [Automated 777-3) message] The system which generated this result transmit marcelina reference range : 150 - 328 10*3/ ?L. The reference range was not u sed to interpret th is result as normal/abnormal . MPV (test code = 10.1 fL 9.8-13.0 38320-2) NRBC/100 WBC (test See_Comment [Automat ed code = 7602423991) message] The system which generated this result transmit marcelina reference range : 0.0 - 10.0 /100 WBCs. The reference range was not used to interpret this result as normal/abnormal . NRBC x10^3 (test code <0.01 See_Comment [Auto mated = 7796388122) message] The system which generated this result transmit marcelina reference range : 10*3/?L. The reference range was not used to interpret this result as normal/abnormal . GRAN MAT (NEUT) % 80.2 % (test code = 770-8) IMM GRAN % (test code 1.40 % = 5459782082) LYMPH % (test code = 9.5 % 736-9) MONO % (test code = 8.4 % 5905-5) EOS % (test code = 0.1 % 713-8) BASO % (test code = 0.4 % 706-2) GRAN MAT x10^3(ANC) 14.88 10*3/uL 1.99-6.95 H (test code = 0560769260) IMM GRAN x10^3 (test 0.26 10*3/uL 0.00-0.06 H code = 7362389997) LYMPH x10^3 (test code 1.76 10*3/uL 1.09-3.23 = 731-0) MONO x10^3 (test code 1.55 10*3/uL 0.36-1.02 H = 742-7) EOS x10^3 (test code = <0.03 0.06-0.53 L 711-2) BASO x10^3 (test code 0.07 10*3/uL 0.01-0.09 = 704-7) Lab Interpretation Abnormal (test code = 40566-4) [facility] GLUCOSE (AUTOMATED)2020-11-06 14:01:51 Test Item Value Reference Range Interpretation Comments POCT GLU (test code = 6994678047) 219 mg/dL 70-110 H Lab Interpretation (test code = Abnormal 38730-8) [facility] GLUCOSE (AUTOMATED)2020-11-06 14:01:51 Test Item Value Reference Range Interpretation Comments POCT GLU (test code = 9780576600) 219 mg/dL 70-110 H Lab Interpretation (test code = Abnormal 08545-2) [facility] GLUCOSE (AUTOMATED)2020-11-06 14:01:51 Test Item Value Reference Range Interpretation Comments POCT GLU (test code = 2813003814) 219 mg/dL 70-110 H Lab Interpretation (test code = Abnormal 81770-8) [facility] GLUCOSE (AUTOMATED)2020-11-06 14:01:51 Test Item Value Reference Range Interpretation Comments POCT GLU (test code = 8141153654) 219 mg/dL 70-110 H Lab Interpretation (test code = Abnormal 29673-0) [facility] GLUCOSE (AUTOMATED)2020-11-06 14:01:51 Test Item Value Reference Range Interpretation Comments POCT GLU (test code = 4420480197) 219 mg/dL 70-110 H Lab Interpretation (test code = Abnormal 37183-3) [facility] GLUCOSE (AUTOMATED)2020-11-06 12:09:42 Test Item Value Reference Range Interpretation Comments POCT GLU (test code = 1488353706) 201 mg/dL 70-110 H Lab Interpretation (test code = Abnormal 48703-4) [facility] GLUCOSE (AUTOMATED)2020-11-06 12:09:42 Test Item Value Reference Range Interpretation Comments POCT GLU (test code = 6713759080) 201 mg/dL 70-110 H Lab Interpretation (test code = Abnormal 79230-0) [facility] GLUCOSE (AUTOMATED)2020-11-06 12:09:42 Test Item Value Reference Range Interpretation Comments POCT GLU (test code = 6947457115) 201 mg/dL 70-110 H Lab Interpretation (test code = Abnormal 37662-5) [facility] GLUCOSE (AUTOMATED)2020-11-06 12:09:42 Test Item Value Reference Range Interpretation Comments POCT GLU (test code = 3719730341) 201 mg/dL 70-110 H Lab Interpretation (test code = Abnormal 27054-8) [facility] GLUCOSE (AUTOMATED)2020-11-06 12:09:42 Test Item Value Reference Range Interpretation Comments POCT GLU (test code = 6059110630) 201 mg/dL 70-110 H Lab Interpretation (test code = Abnormal 72134-0) [facility] GLUCOSE (AUTOMATED)2020-11-06 11:11:59 Test Item Value Reference Range Interpretation Comments POCT GLU (test code = 8425855930) 202 mg/dL 70-110 H Lab Interpretation (test code = Abnormal 20322-0) [facility] GLUCOSE (AUTOMATED)2020-11-06 11:11:59 Test Item Value Reference Range Interpretation Comments POCT GLU (test code = 5244873224) 202 mg/dL 70-110 H Lab Interpretation (test code = Abnormal 02293-2) [facility] GLUCOSE (AUTOMATED)2020-11-06 11:11:59 Test Item Value Reference Range Interpretation Comments POCT GLU (test code = 7637948989) 202 mg/dL 70-110 H Lab Interpretation (test code = Abnormal 50508-9) [facility] GLUCOSE (AUTOMATED)2020-11-06 11:11:59 Test Item Value Reference Range Interpretation Comments POCT GLU (test code = 9192868307) 202 mg/dL 70-110 H Lab Interpretation (test code = Abnormal 55246-1) [facility] GLUCOSE (AUTOMATED)2020-11-06 11:11:59 Test Item Value Reference Range Interpretation Comments POCT GLU (test code = 0691696417) 202 mg/dL 70-110 H Lab Interpretation (test code = Abnormal 17492-1) [facility] GLUCOSE (AUTOMATED)2020-11-06 07:42:50 Test Item Value Reference Range Interpretation Comments POCT GLU (test code = 6588019750) 153 mg/dL 70-110 H Lab Interpretation (test code = Abnormal 84964-7) [facility] GLUCOSE (AUTOMATED)2020-11-06 07:42:50 Test Item Value Reference Range Interpretation Comments POCT GLU (test code = 4954756240) 153 mg/dL 70-110 H Lab Interpretation (test code = Abnormal 60573-6) [facility] GLUCOSE (AUTOMATED)2020-11-06 07:42:50 Test Item Value Reference Range Interpretation Comments POCT GLU (test code = 4813941689) 153 mg/dL 70-110 H Lab Interpretation (test code = Abnormal 91059-3) [facility] GLUCOSE (AUTOMATED)2020-11-06 07:42:50 Test Item Value Reference Range Interpretation Comments POCT GLU (test code = 8695518159) 153 mg/dL 70-110 H Lab Interpretation (test code = Abnormal 80784-0) [facility] GLUCOSE (AUTOMATED)2020-11-06 07:42:50 Test Item Value Reference Range Interpretation Comments POCT GLU (test code = 2595524844) 153 mg/dL 70-110 H Lab Interpretation (test code = Abnormal 75824-9) [facility] GLUCOSE (AUTOMATED)2020-11-06 06:55:50 Test Item Value Reference Range Interpretation Comments POCT GLU (test code = 4895029566) 135 mg/dL 70-110 H Lab Interpretation (test code = Abnormal 83943-1) [facility] GLUCOSE (AUTOMATED)2020-11-06 06:55:50 Test Item Value Reference Range Interpretation Comments POCT GLU (test code = 2667007089) 135 mg/dL 70-110 H Lab Interpretation (test code = Abnormal 08201-4) [facility] GLUCOSE (AUTOMATED)2020-11-06 06:55:50 Test Item Value Reference Range Interpretation Comments POCT GLU (test code = 5787839743) 135 mg/dL 70-110 H Lab Interpretation (test code = Abnormal 85821-7) [facility] GLUCOSE (AUTOMATED)2020-11-06 06:55:50 Test Item Value Reference Range Interpretation Comments POCT GLU (test code = 2327354600) 135 mg/dL 70-110 H Lab Interpretation (test code = Abnormal 01432-0) [facility] GLUCOSE (AUTOMATED)2020-11-06 06:55:50 Test Item Value Reference Range Interpretation Comments POCT GLU (test code = 6037044695) 135 mg/dL 70-110 H Lab Interpretation (test code = Abnormal 68133-9) [facility] GLUCOSE (AUTOMATED)2020-11-06 06:29:24 Test Item Value Reference Range Interpretation Comments POCT GLU (test code = 6703419761) 129 mg/dL 70-110 H Lab Interpretation (test code = Abnormal 54948-5) [facility] GLUCOSE (AUTOMATED)2020-11-06 06:29:24 Test Item Value Reference Range Interpretation Comments POCT GLU (test code = 6877160286) 129 mg/dL 70-110 H Lab Interpretation (test code = Abnormal 66358-8) [facility] GLUCOSE (AUTOMATED)2020-11-06 06:29:24 Test Item Value Reference Range Interpretation Comments POCT GLU (test code = 0949541333) 129 mg/dL 70-110 H Lab Interpretation (test code = Abnormal 16828-0) [facility] GLUCOSE (AUTOMATED)2020-11-06 06:29:24 Test Item Value Reference Range Interpretation Comments POCT GLU (test code = 4864105278) 129 mg/dL 70-110 H Lab Interpretation (test code = Abnormal 89559-3) [facility] GLUCOSE (AUTOMATED)2020-11-06 06:29:24 Test Item Value Reference Range Interpretation Comments POCT GLU (test code = 6581001761) 129 mg/dL 70-110 H Lab Interpretation (test code = Abnormal 00222-6) [facility] GLUCOSE (AUTOMATED)2020-11-06 05:36:48 Test Item Value Reference Range Interpretation Comments POCT GLU (test code = 2474274568) 198 mg/dL 70-110 H Lab Interpretation (test code = Abnormal 64609-1) [facility] GLUCOSE (AUTOMATED)2020-11-06 05:36:48 Test Item Value Reference Range Interpretation Comments POCT GLU (test code = 4762705862) 198 mg/dL 70-110 H Lab Interpretation (test code = Abnormal 56893-5) [facility] GLUCOSE (AUTOMATED)2020-11-06 05:36:48 Test Item Value Reference Range Interpretation Comments POCT GLU (test code = 5248711252) 198 mg/dL 70-110 H Lab Interpretation (test code = Abnormal 23595-5) [facility] GLUCOSE (AUTOMATED)2020-11-06 05:36:48 Test Item Value Reference Range Interpretation Comments POCT GLU (test code = 5002254782) 198 mg/dL 70-110 H Lab Interpretation (test code = Abnormal 82076-9) [facility] GLUCOSE (AUTOMATED)2020-11-06 05:36:48 Test Item Value Reference Range Interpretation Comments POCT GLU (test code = 9968812470) 198 mg/dL 70-110 H Lab Interpretation (test code = Abnormal 88718-1) [facility] GLUCOSE (AUTOMATED)2020-11-06 04:32:09 Test Item Value Reference Range Interpretation Comments POCT GLU (test code = 9496884937) 193 mg/dL 70-110 H Lab Interpretation (test code = Abnormal 43526-7) [facility] GLUCOSE (AUTOMATED)2020-11-06 04:32:09 Test Item Value Reference Range Interpretation Comments POCT GLU (test code = 7987585357) 193 mg/dL 70-110 H Lab Interpretation (test code = Abnormal 33050-2) [facility] GLUCOSE (AUTOMATED)2020-11-06 04:32:09 Test Item Value Reference Range Interpretation Comments POCT GLU (test code = 2947862846) 193 mg/dL 70-110 H Lab Interpretation (test code = Abnormal 73573-4) [facility] GLUCOSE (AUTOMATED)2020-11-06 04:32:09 Test Item Value Reference Range Interpretation Comments POCT GLU (test code = 0729133419) 193 mg/dL 70-110 H Lab Interpretation (test code = Abnormal 80832-9) [facility] GLUCOSE (AUTOMATED)2020-11-06 04:32:09 Test Item Value Reference Range Interpretation Comments POCT GLU (test code = 1086798174) 193 mg/dL 70-110 H Lab Interpretation (test code = Abnormal 73394-2) [facility] GLUCOSE (AUTOMATED)2020-11-06 03:33:05 Test Item Value Reference Range Interpretation Comments POCT GLU (test code = 4253995320) 262 mg/dL 70-110 H Lab Interpretation (test code = Abnormal 56078-2) [facility] GLUCOSE (AUTOMATED)2020-11-06 03:33:05 Test Item Value Reference Range Interpretation Comments POCT GLU (test code = 6453717949) 262 mg/dL 70-110 H Lab Interpretation (test code = Abnormal 68758-2) [facility] GLUCOSE (AUTOMATED)2020-11-06 03:33:05 Test Item Value Reference Range Interpretation Comments POCT GLU (test code = 7885998375) 262 mg/dL 70-110 H Lab Interpretation (test code = Abnormal 36398-6) [facility] GLUCOSE (AUTOMATED)2020-11-06 03:33:05 Test Item Value Reference Range Interpretation Comments POCT GLU (test code = 9527948400) 262 mg/dL 70-110 H Lab Interpretation (test code = Abnormal 95944-5) [facility] GLUCOSE (AUTOMATED)2020-11-06 03:33:05 Test Item Value Reference Range Interpretation Comments POCT GLU (test code = 9514241397) 262 mg/dL 70-110 H Lab Interpretation (test code = Abnormal 78160-0) [facility] GLUCOSE (AUTOMATED)2020-11-06 02:23:20 Test Item Value Reference Range Interpretation Comments POCT GLU (test code = 3932667490) 267 mg/dL 70-110 H Lab Interpretation (test code = Abnormal 53557-6) [facility] GLUCOSE (AUTOMATED)2020-11-06 02:23:20 Test Item Value Reference Range Interpretation Comments POCT GLU (test code = 7893352033) 267 mg/dL 70-110 H Lab Interpretation (test code = Abnormal 74098-1) [facility] GLUCOSE (AUTOMATED)2020-11-06 02:23:20 Test Item Value Reference Range Interpretation Comments POCT GLU (test code = 6746562670) 267 mg/dL 70-110 H Lab Interpretation (test code = Abnormal 71664-7) [facility] GLUCOSE (AUTOMATED)2020-11-06 02:23:20 Test Item Value Reference Range Interpretation Comments POCT GLU (test code = 4072143524) 267 mg/dL 70-110 H Lab Interpretation (test code = Abnormal 68324-9) [facility] GLUCOSE (AUTOMATED)2020-11-06 02:23:20 Test Item Value Reference Range Interpretation Comments POCT GLU (test code = 9385688589) 267 mg/dL 70-110 H Lab Interpretation (test code = Abnormal 46209-9) [facility] GLUCOSE (AUTOMATED)2020-11-06 01:43:10 Test Item Value Reference Range Interpretation Comments POCT GLU (test code = 4363651230) 247 mg/dL 70-110 H Lab Interpretation (test code = Abnormal 65771-1) [facility] GLUCOSE (AUTOMATED)2020-11-06 01:43:10 Test Item Value Reference Range Interpretation Comments POCT GLU (test code = 3915481260) 247 mg/dL 70-110 H Lab Interpretation (test code = Abnormal 10300-4) [facility] GLUCOSE (AUTOMATED)2020-11-06 01:43:10 Test Item Value Reference Range Interpretation Comments POCT GLU (test code = 4296743099) 247 mg/dL 70-110 H Lab Interpretation (test code = Abnormal 32066-5) [facility] GLUCOSE (AUTOMATED)2020-11-06 01:43:10 Test Item Value Reference Range Interpretation Comments POCT GLU (test code = 5925408946) 247 mg/dL 70-110 H Lab Interpretation (test code = Abnormal 45388-1) [facility] 01:43:10 Test Item Value Reference Range Interpretation Comments POCT GLU (test code = 7034189833) 247 mg/dL 70-110 H Lab Interpretation (test code = Abnormal 28694-0) [facility] The Type and Screen expires at midnight on the 3rd day after it was drawn. A current Type and Screen is required when RBCs are requested. For all other blood products, a Type and Scree n performed during the current hospitalizati...2020-11-06 00:04:42 Test Item Value Reference Range Interpretation Comments ABO & RH (test code A POSITIVE Performe d at [facility] = 20) Laboratory [facility] Blood [address] [address]Viwv Free: [phone] A No. [id number] IAT (test code = Negative Performed a t [facility] 1185) Laboratory [facility] Blood [address] [address]Nlhw Free: [phone] A No. [id number] [facility] The Type and Screen expires at midnight on the 3rd day after it was drawn. A current Type and Screen is required when RBCs are requested. For all other blood products, a Type and Scree n performed during the current hospitalizati...2020-11-06 00:04:42 Test Item Value Reference Range Interpretation Comments ABO & RH (test code A POSITIVE Performe d at [facility] = 20) Laboratory [facility] Blood [address] [address]Xuvl Free: [phone] A No. [id number] IAT (test code = Negative Performed a t [facility] 1185) Laboratory [facility] Blood [address] [address]Tvex Free: [phone] A No. [id number] [facility] The Type and Screen expires at midnight on the 3rd day after it was drawn. A current Type and Screen is required when RBCs are requested. For all other blood products, a Type and Scree n performed during the current hospitalizati...2020-11-06 00:04:42 Test Item Value Reference Range Interpretation Comments ABO & RH (test code A POSITIVE Performe d at [facility] = 20) Laboratory [facility] Blood [facility] [place] [address]Yvvy Free: [phone] A No. [id number] IAT (test code = Negative Performed a t [facility] 1185) Laboratory [facility] Blood [facility] [address] [place] [address]Zfrj Free: [phone] A No. [id number] [facility] - The Type and Screen expires at midnight on the 3rd day after it was drawn. A current Type and Screen is required when RBCs are requested. For all other blood products, a Type and Scree n performed during the current hospitalizati...2020-11-06 00:04:42 Test Item Value Reference Range Interpretation Comments ABO & RH (test code A POSITIVE Performe d at [facility] = 20) Laboratory [facility] Blood [address] [address]Zvjj Free: [phone] A No. [id number] IAT (test code = Negative Performed a t [facility] 1185) Laboratory [facility] Blood [address] [address]Bibe Free: [phone] A No. [id number] [facility] - The Type and Screen expires at midnight on the 3rd day after it was drawn. A current Type and Screen is required when RBCs are requested. For all other blood products, a Type and Scree n performed during the current hospitalizati...2020-11-06 00:04:42 Test Item Value Reference Range Interpretation Comments ABO & RH (test code A POSITIVE Performe d at [facility] = 20) Laboratory [facility] Blood [address] [address]Dghu Free: [phone] A No. [id number] IAT (test code = Negative Performed a t [facility] 1185) Laboratory [facility] Blood [facility] [address] [place] [address]Monh Free: [phone] A No. [id number] [facility] [id number] 00:03:54 Test Item Value Reference Range Interpretation Comments ABO & RH (test code A Positive Performe d at [facility] = 20) Laboratory [facility] Blood [address] [address]Ertc Free: [phone] A No. [id number] [facility] [id number] 00:03:54 Test Item Value Reference Range Interpretation Comments ABO & RH (test code A Positive Performe d at [facility] = 20) Laboratory [facility] Blood [address] [address]Ejvt Free: [phone] A No. [id number] [facility] [id number] 00:03:54 Test Item Value Reference Range Interpretation Comments ABO & RH (test code A Positive Performe d at [facility] = 20) Laboratory [facility] Blood [address] s [address]Ypkr Free: [phone] A No. [id number] [facility] [id number] 00:03:54 Test Item Value Reference Range Interpretation Comments ABO & RH (test code A Positive Performe d at [facility] = 20) Laboratory [facility] Blood [address] [place] [address]Jyuj Free: [phone] A No. [id number] [facility] [id number] 00:03:54 Test Item Value Reference Range Interpretation Comments ABO & RH (test code A Positive Performe d at [facility] = 20) Laboratory [facility] Blood [address] [place] [address]Esez Free: [phone] A No. [id number] [facility] GLUCOSE (AUTOMATED)2020-11-05 23:50:55 Test Item Value Reference Range Interpretation Comments POCT GLU (test code = 3020885301) 275 mg/dL 70-110 H Lab Interpretation (test code = Abnormal 34800-8) [facility] GLUCOSE (AUTOMATED)2020-11-05 23:50:55 Test Item Value Reference Range Interpretation Comments POCT GLU (test code = 4210232551) 275 mg/dL 70-110 H Lab Interpretation (test code = Abnormal 37530-2) [facility] GLUCOSE (AUTOMATED)2020-11-05 23:50:55 Test Item Value Reference Range Interpretation Comments POCT GLU (test code = 1571623003) 275 mg/dL 70-110 H Lab Interpretation (test code = Abnormal 31188-3) [facility] GLUCOSE (AUTOMATED)2020-11-05 23:50:55 Test Item Value Reference Range Interpretation Comments POCT GLU (test code = 1562765697) 275 mg/dL 70-110 H Lab Interpretation (test code = Abnormal 44775-1) [facility] GLUCOSE (AUTOMATED)2020-11-05 23:50:55 Test Item Value Reference Range Interpretation Comments POCT GLU (test code = 9439652093) 275 mg/dL 70-110 H Lab Interpretation (test code = Abnormal 01345-3) [facility]2020-11-05 23:15:59 Test Item Value Reference Range Interpretation Comments HGB A1C (test code = 12.2 % 4.0-5.7 H 4548-4) PATTI (test code = PATTI) Reference RangesNormal: <5.7%Prediabetes: 5.7 - 6.4%Diabetes: > 6.5% Lab Interpretation (test Abnormal code = 08979-1) [facility]2020-11-05 23:15:59 Test Item Value Reference Range Interpretation Comments HGB A1C (test code = 12.2 % 4.0-5.7 H 4548-4) PATTI (test code = PATTI) Reference RangesNormal: <5.7%Prediabetes: 5.7 - 6.4%Diabetes: > 6.5% Lab Interpretation (test Abnormal code = 10070-3) [facility]2020-11-05 23:15:59 Test Item Value Reference Range Interpretation Comments HGB A1C (test code = 12.2 % 4.0-5.7 H 4548-4) PATTI (test code = PATTI) Reference RangesNormal: <5.7%Prediabetes: 5.7 - 6.4%Diabetes: > 6.5% Lab Interpretation (test Abnormal code = 93788-0) [facility]2020-11-05 23:15:59 Test Item Value Reference Range Interpretation Comments HGB A1C (test code = 12.2 % 4.0-5.7 H 4548-4) PATTI (test code = PATTI) Reference RangesNormal: <5.7%Prediabetes: 5.7 - 6.4%Diabetes: > 6.5% Lab Interpretation (test Abnormal code = 14504-1) [facility]2020-11-05 23:15:59 Test Item Value Reference Range Interpretation Comments HGB A1C (test code = 12.2 % 4.0-5.7 H 4548-4) PATTI (test code = PATTI) Reference RangesNormal: <5.7%Prediabetes: 5.7 - 6.4%Diabetes: > 6.5% Lab Interpretation (test Abnormal code = 49020-5) [facility] GLUCOSE (AUTOMATED)2020-11-05 23:13:52 Test Item Value Reference Range Interpretation Comments POCT GLU (test code = 1957377984) 282 mg/dL 70-110 H Lab Interpretation (test code = Abnormal 35201-0) [facility] GLUCOSE (AUTOMATED)2020-11-05 23:13:52 Test Item Value Reference Range Interpretation Comments POCT GLU (test code = 0004125709) 282 mg/dL 70-110 H Lab Interpretation (test code = Abnormal 94735-8) [facility] GLUCOSE (AUTOMATED)2020-11-05 23:13:52 Test Item Value Reference Range Interpretation Comments POCT GLU (test code = 1969688786) 282 mg/dL 70-110 H Lab Interpretation (test code = Abnormal 13386-1) [facility] GLUCOSE (AUTOMATED)2020-11-05 23:13:52 Test Item Value Reference Range Interpretation Comments POCT GLU (test code = 0495432227) 282 mg/dL 70-110 H Lab Interpretation (test code = Abnormal 56220-5) [facility] GLUCOSE (AUTOMATED)2020-11-05 23:13:52 Test Item Value Reference Range Interpretation Comments POCT GLU (test code = 8562107465) 282 mg/dL 70-110 H Lab Interpretation (test code = Abnormal 01769-8) [facility] VW [id number] 22:52:16 Impression: 1. No radiographic evidence of osteomyelitis. ?If clinically indicated,bone scan or MRI may be obtained to further evaluate.2. Ankle and lateral forefoot soft tissue swelling. RL: 2824 End of Report Exam: Left Foot, Left Ankle, 2020 4:00 PM. Ordering Physician: EDEN FULLER. History: Left foot infection. Technique: 3 views of the left ankle. 3 views of the left foot. Comparison: None. Findings: There is no acute fracture or dislocation. Joint spaces are preserved.There is osteophyte formation at the anterior aspect of the tibial plafond.Enthesopathy is noted at the calcaneus. There is no periosteal reaction orosseous erosion. There are vascular calcifications. There is soft tissueswelling at the lateral aspect of the foot. There is also diffuse softtissue swelling at the ankle. [facility], Radiant Results Inft User - 11/05/2020 5 :53 PM CDTExam: Left Foot, Left Ankle, 11/05/2020 4:00 PM.Ordering Physician: EDEN FULLER.History: Left foot infection.Technique: 3 views of the left ankle. 3 views of the left foot.Comparison: None.Findings: There is no acute fracture or dislocation. Joint spaces are preserved.There is osteophyte formation at the anterior aspect of the tibial plafond.Enthesopathy is noted at the calcaneus. There is noperiosteal reaction orosseous erosion. There are vascular calcifications. There is soft tissueswelling at the lateral aspect of the foot. There is also diffuse softtissue swelling at the ankle.IMPRESSIONImpression: 1. No radiographic evidence of osteomyelitis. If clinically indicated,bone scan or MRI may be obtained to further evaluate.2. Ankle and lateral forefoot soft tissue swelling.RL: 2824End ofReport [facility] VW [id number] 22:52:16Impression: 1. No radiographic evidence of osteomyelitis. ?If clinically indicated,bone scan or MRI may be obtained to further evaluate.2. Ankle and lateral forefoot soft tissue swelling. RL: 2824 End of Report Exam: Left Foot, Left Ankle, 2020 4:00 PM. Ordering Physician: EDEN FULLER. History: Left foot infection. Technique: 3 views of the left ankle. 3 views of the left foot. Comparison: None. Findings: There is no acute fracture or dislocation. Joint spaces are preserved.There is osteophyte formation at the anterior aspect of the tibial plafond.Enthesopathy is noted at the calcaneus. There is no periosteal reaction orosseous erosion. There are vascular calcifications. There is soft tissueswelling at the lateral aspect of the foot. There is also diffuse softtissue swelling at the ankle. [facility], Radiant Results Inft User - 11/05/2020 5 :53 PM CDTExam: Left Foot, Left Ankle, 11/05/2020 4:00 PM.Ordering Physician: EDEN FULLER.History: Left foot infection.Technique: 3 views of the left ankle. 3 views of the left foot.Comparison: None.Findings: There is no acute fracture or dislocation. Joint spaces are preserved.There is osteophyte formation at the anterior aspect of the tibial plafond.Enthesopathy is noted at the calcaneus. There is noperiosteal reaction orosseous erosion. There are vascular calcifications. There is soft tissueswelling at the lateral aspect of the foot. There is also diffuse softtissue swelling at the ankle.IMPRESSIONImpression: 1. No radiographic evidence of osteomyelitis. If clinically indicated,bone scan or MRI may be obtained to further evaluate.2. Ankle and lateral forefoot soft tissue swelling.RL: 2824End ofReport [facility] VW [id number] 22:52:16Impression: 1. No radiographic evidence of osteomyelitis. ?If clinically indicated,bone scan or MRI may be obtained to further evaluate.2. Ankle and lateral forefoot soft tissue swelling. RL: 2824 End of Report Exam: Left Foot, Left Ankle, 2020 4:00 PM. Ordering Physician: EDEN FULLER. History: Left foot infection. Technique: 3 views of the left ankle. 3 views of the left foot. Comparison: None. Findings: There is no acute fracture or dislocation. Joint spaces are preserved.There is osteophyte formation at the anterior aspect of the tibial plafond.Enthesopathy is noted at the calcaneus. There is no periosteal reaction orosseous erosion. There are vascular calcifications. There is soft tissueswelling at the lateral aspect of the foot. There is also diffuse softtissue swelling at the ankle. [facility], Radiant Results Inft User - 11/05/2020 5 :53 PM CDT Exam: Left Foot, Left Ankle, 11/05/2020 4:00 PM.Ordering Physician: EDEN FULLER.History: Left foot infection.Technique: 3 views of the left ankle. 3 views of the left foot.Comparison: None.Findings: There is no acute fracture or dislocation. Joint spaces are preserved.There is osteophyte formation at the anterior aspect of the tibial plafond.Enthesopathy is noted at the calcaneus. There is no periosteal reaction orosseous erosion. There are vascular calcifications. There is soft tissueswelling at the lateral aspect of the foot. There is also diffuse softtissue swelling at the ankle.IMPRESSIONImpression: 1. No radiographic evidence of osteomyelitis. If clinically indicated,bone scan or MRI may be obtained to further evaluate.2. Ankle and lateral forefoot soft tissue swelling.RL: 2824End of Report [facility] VW [id number] 22:52:16Impression: 1. No radiographic evidence of osteomyelitis. ?If clinically indicated,bone scan or MRI may be obtained to further evaluate.2. Ankle and lateral forefoot soft tissue swelling. RL: 2824 End of Report Exam: Left Foot, Left Ankle, 2020 4:00 PM. Ordering Physician: EDEN FULLER. History: Left foot infection. Technique: 3 views of the left ankle. 3 views of the left foot. Comparison: None. Findings: There is no acute fracture or dislocation. Joint spaces are preserved.There is osteophyte formation at the anterior aspect of the tibial plafond.Enthesopathy is noted at the calcaneus. There is no periosteal reaction orosseous erosion. There are vascular calcifications. There is soft tissueswelling at the lateral aspect of the foot. There is also diffuse softtissue swelling at the ankle. [facility], Radiant Results Inft User - 11/05/2020 5 :53 PM CDT Exam: Left Foot, Left Ankle, 11/05/2020 4:00 PM.Ordering Physician: EDEN FULLER.History: Left foot infection.Technique: 3 views of the left ankle. 3 views of the left foot.Comparison: None.Findings: There is no acute fracture or dislocation. Joint spaces are preserved.There is osteophyte formation at the anterior aspect of the tibial plafond.Enthesopathy is noted at the calcaneus. There is no periosteal reaction orosseous erosion. There are vascular calcifications. There is soft tissueswelling at the lateral aspect of the foot. There is also diffuse softtissue swelling at the ankle.IMPRESSIONImpression: 1. No radiographic evidence of osteomyelitis. If clinically indicated,bone scan or MRI may be obtained to further evaluate.2. Ankle and lateral forefoot soft tissue swelling.RL: 2824End of Report [facility] VW [id number] 22:52:16Impression: 1. No radiographic evidence of osteomyelitis. ?If clinically indicated,bone scan or MRI may be obtained to further evaluate.2. Ankle and lateral forefoot soft tissue swelling. RL: 2824 End of Report Exam: Left Foot, Left Ankle, 2020 4:00 PM. Ordering Physician: EDEN FULLER. History: Left foot infection. Technique: 3 views of the left ankle. 3 views of the left foot. Comparison: None. Findings: There is no acute fracture or dislocation. Joint spaces are preserved.There is osteophyte formation at the anterior aspect of the tibial plafond.Enthesopathy is noted at the calcaneus. There is no periosteal reaction orosseous erosion. There are vascular calcifications. There is soft tissueswelling at the lateral aspect of the foot. There is also diffuse softtissue swelling at the ankle. [facility], Radiant Results Inft User - 11/05/2020 5 :53 PM CDT Exam: Left Foot, Left Ankle, 11/05/2020 4:00 PM.Ordering Physician: EDEN FULLER.History: Left foot infection.Technique: 3 views of the left ankle. 3 views of the left foot.Comparison: None.Findings: There is no acute fracture or dislocation. Joint spaces are preserved.There is osteophyte formation at the anterior aspect of the tibial plafond.Enthesopathy is noted at the calcaneus. There is no periosteal reaction orosseous erosion. There are vascular calcifications. There is soft tissueswelling at the lateral aspect of the foot. There is also diffuse softtissue swelling at the ankle.IMPRESSIONImpression: 1. No radiographic evidence of osteomyelitis. If clinically indicated,bone scan or MRI may be obtained to further evaluate.2. Ankle and lateral forefoot soft tissue swelling.RL: 2824End of Report [facility]+ VW [id number] 22:52:16Impression: 1. No radiographic evidence of osteomyelitis. ?If clinically indicated,bone scan or MRI may be obtained to further evaluate.2. Ankle and lateral forefoot soft tissue swelling. RL: 2824 End of Report Exam: Left Foot, Left Ankle, 2020 4:00 PM. Ordering Physician: EDEN FULLER. History: Left foot infection. Technique: 3 views of the left ankle. 3 views of the left foot. Comparison: None. Findings: There is no acute fracture or dislocation. Joint spaces are preserved.There is osteophyte formation at the anterior aspect of the tibial plafond.Enthesopathy is noted at the calcaneus. There is no periosteal reaction orosseous erosion. There are vascular calcifications. There is soft tissueswelling at the lateral aspect of the foot. There is also diffuse softtissue swelling at the ankle. [facility], Radiant Results Inft User - 11/05/2020 5 :53 PM CDT Exam: Left Foot, Left Ankle, 11/05/2020 4:00 PM.Ordering Physician: EDEN FULLER.History: Left foot infection.Technique: 3 views of the left ankle. 3 views of the left foot.Comparison: None.Findings: There is no acute fracture or dislocation. Joint spaces are preserved.There is osteophyte formation at the anterior aspect of the tibial plafond.Enthesopathy is noted at the calcaneus. There is no periosteal reaction orosseous erosion. There are vascular calcifications. There is soft tissueswelling at the lateral aspect of the foot. There is also diffuse softtissue swelling at the ankle.IMPRESSIONImpression: 1. No radiographic evidence of osteomyelitis. If clinically indicated,bone scan or MRI may be obtained to further evaluate.2. Ankle and lateral forefoot soft tissue swelling.RL: 2824End of Report [facility] VW [id number] 22:52:16Impression: 1. No radiographic evidence of osteomyelitis. ?If clinically indicated,bone scan or MRI may be obtained to further evaluate.2. Ankle and lateral forefoot soft tissue swelling. RL: 2824 End of Report Exam: Left Foot, Left Ankle, 2020 4:00 PM. Ordering Physician: EDEN FULLER. History: Left foot infection. Technique: 3 views of the left ankle. 3 views of the left foot. Comparison: None. Findings: There is no acute fracture or dislocation. Joint spaces are preserved.There is osteophyte formation at the anterior aspect of the tibial plafond.Enthesopathy is noted at the calcaneus. There is no periosteal reaction orosseous erosion. There are vascular calcifications. There is soft tissueswelling at the lateral aspect of the foot. There is also diffuse softtissue swelling at the ankle. [facility], Radiant Results Inft User - 11/05/2020 5 :53 PM CDTExam: Left Foot, Left Ankle, 11/05/2020 4:00 PM.Ordering Physician: EDEN FULLER.History: Left foot infection.Technique: 3 views of the left ankle. 3 views of the left foot.Comparison: None.Findings: There is no acute fracture or dislocation. Joint spaces are preserved.There is osteophyte formation at the anterior aspect of the tibial plafond.Enthesopathy is noted at the calcaneus. There is noperiosteal reaction orosseous erosion. There are vascular calcifications. There is soft tissueswelling at the lateral aspect of the foot. There is also diffuse softtissue swelling at the ankle.IMPRESSIONImpression: 1. No radiographic evidence of osteomyelitis. If clinically indicated,bone scan or MRI may be obtained to further evaluate.2. Ankle and lateral forefoot soft tissue swelling.RL: 2824End ofReport [facility] VW [id number] 22:52:16Impression: 1. No radiographic evidence of osteomyelitis. ?If clinically indicated,bone scan or MRI may be obtained to further evaluate.2. Ankle and lateral forefoot soft tissue swelling. RL: 2824 End of Report Exam: Left Foot, Left Ankle, 2020 4:00 PM. Ordering Physician: EDEN FULLER. History: Left foot infection. Technique: 3 views of the left ankle. 3 views of the left foot. Comparison: None. Findings: There is no acute fracture or dislocation. Joint spaces are preserved.There is osteophyte formation at the anterior aspect of the tibial plafond.Enthesopathy is noted at the calcaneus. There is no periosteal reaction orosseous erosion. There are vascular calcifications. There is soft tissueswelling at the lateral aspect of the foot. There is also diffuse softtissue swelling at the ankle. [facility], Radiant Results Inft User - 11/05/2020 5 :53 PM CDTExam: Left Foot, Left Ankle, 11/05/2020 4:00 PM.Ordering Physician: EDEN FULLER.History: Left foot infection.Technique: 3 views of the left ankle. 3 views of the left foot.Comparison: None.Findings: There is no acute fracture or dislocation. Joint spaces are preserved.There is osteophyte formation at the anterior aspect of the tibial plafond.Enthesopathy is noted at the calcaneus. There is noperiosteal reaction orosseous erosion. There are vascular calcifications. There is soft tissueswelling at the lateral aspect of the foot. There is also diffuse softtissue swelling at the ankle.IMPRESSIONImpression: 1. No radiographic evidence of osteomyelitis. If clinically indicated,bone scan or MRI may be obtained to further evaluate.2. Ankle and lateral forefoot soft tissue swelling.RL: 2824End ofReport [facility] VW [id number] 22:52:16Impression: 1. No radiographic evidence of osteomyelitis. ?If clinically indicated,bone scan or MRI may be obtained to further evaluate.2. Ankle and lateral forefoot soft tissue swelling. RL: 2824 End of Report Exam: Left Foot, Left Ankle, 2020 4:00 PM. Ordering Physician: EDEN FULLER. History: Left foot infection. Technique: 3 views of the left ankle. 3 views of the left foot. Comparison: None. Findings: There is no acute fracture or dislocation. Joint spaces are preserved.There is osteophyte formation at the anterior aspect of the tibial plafond.Enthesopathy is noted at the calcaneus. There is no periosteal reaction orosseous erosion. There are vascular calcifications. There is soft tissueswelling at the lateral aspect of the foot. There is also diffuse softtissue swelling at the ankle. [facility], Radiant Results Inft User - 11/05/2020 5 :53 PM CDTExam: Left Foot, Left Ankle, 11/05/2020 4:00 PM.Ordering Physician: EDEN FULLER.History: Left foot infection.Technique: 3 views of the left ankle. 3 views of the left foot.Comparison: None.Findings: There is no acute fracture or dislocation. Joint spaces are preserved.There is osteophyte formation at the anterior aspect of the tibial plafond.Enthesopathy is noted at the calcaneus. There is noperiosteal reaction orosseous erosion. There are vascular calcifications. There is soft tissueswelling at the lateral aspect of the foot. There is also diffuse softtissue swelling at the ankle.IMPRESSIONImpression: 1. No radiographic evidence of osteomyelitis. If clinically indicated,bone scan or MRI may be obtained to further evaluate.2. Ankle and lateral forefoot soft tissue swelling.RL: 2824End ofReport [facility]XR [facility]+ VW [id number] 22:52:16Impression: 1. No radiographic evidence of osteomyelitis. ?If clinically indicated,bone scan or MRI may be obtained to further evaluate.2. Ankle and lateral forefoot soft tissue swelling. RL: 2824 End of Report Exam: Left Foot, Left Ankle, 2020 4:00 PM. Ordering Physician: EDEN FULLER. History: Left foot infection. Technique: 3 views of the left ankle. 3 views of the left foot. Comparison: None. Findings: There is no acute fracture or dislocation. Joint spaces are preserved.There is osteophyte formation at the anterior aspect of the tibial plafond.Enthesopathy is noted at the calcaneus. There is no periosteal reaction orosseous erosion. There are vascular calcifications. There is soft tissueswelling at the lateral aspect of the foot. There is also diffuse softtissue swelling at the ankle. [facility], Radiant Results Inft User - 11/05/2020 5 :53 PM CDTExam: Left Foot, Left Ankle, 11/05/2020 4:00 PM.Ordering Physician: EDEN FULLER.History: Left foot infection.Technique: 3 views of the left ankle. 3 views of the left foot.Comparison: None.Findings: There is no acute fracture or dislocation. Joint spaces are preserved.There is osteophyte formation at the anterior aspect of the tibial plafond.Enthesopathy is noted at the calcaneus. There is noperiosteal reaction orosseous erosion. There are vascular calcifications. There is soft tissueswelling at the lateral aspect of the foot. There is also diffuse softtissue swelling at the ankle.IMPRESSIONImpression: 1. No radiographic evidence of osteomyelitis. If clinically indicated,bone scan or MRI may be obtained to further evaluate.2. Ankle and lateral forefoot soft tissue swelling.RL: 2824End ofReport [facility] (NA, K, CL, CO2, GLUCOSE, BU, CREATININE, CA)2020-11-05 22:46:18 Test Item Value Reference Range Interpretation Comments NA (test code = 130 mmol/L 135-145 L 0297003581) K (test code = 4.2 mmol/L 3.5-5.0 2218779939) CL (test code = 95 mmol/L 98-108 L 9371325000) CO2 TOTAL (test code = 20 mmol/L 23-31 L 8967393119) AGAP (test code = 2-16 3625837174) BUN (test code = 18 mg/dL 7-23 0183271599) GLUCOSE (test code = 292 mg/dL 70-110 H 2883237571) CREATININE (test code = 0.64 mg/dL 0.60-1.25 4536077311) CALCIUM (test code = 8.9 mg/dL 8.6-10.6 3497494961) eGFR (test code = mL/min/1.73m2 3727116170) PATTI (test code = PATTI) Association of Glomerular Filtration Rate (GFR) and Staging of Kidney Disease* + --+ --+ ------+| GFR (mL/min/1.73 m2) ?| With Kidney Damage ?| ?Without Kidney Damage+ --------+ --------+ +| ?>90 ?| ?Stage one ?| ? Normal ?+ ---+ ---+ -------+| ?60-89 ?| ?Stage two ?| ? Decreased GFR ? + --+ --+ ------+| ?30-59 ?| ?Stage three ?| ? Stage three ? + --+ --+ ------+| ?15-29 ?| ?Stage four ? | ? Stage four ?+ ---+ ---+ -------+| ?<15 (or dialysis) ? ?| ?Stage five ? | ? Stage five ?+ ---+ ---+ -------+ *Each stage assumes the associated GFR level has been in effect for at least three months. ?Stages 1 to 5, with or without kidney disease, indicate chronic kidney disease. Notes: Determination of stages one and two (with eGFR >59mL/min/1.73 m2) requires estimation of kidney damage for at least three months as defined by structural or functional abnormalities of the kidney, manifested by either:Pathological abnormalities or Markers of kidney damage (including abnormalities in the composition of the blood or urine or abnormalities in imaging tests). Lab Interpretation Abnormal (test code = 33373-6) [facility], [id number] 22:46:18 Test Item Value Reference Range Interpretation Comments MAGNESIUM (test code = 9004099850) 2.3 mg/dL 1.7-2.4 Lab Interpretation (test code = Normal 89901-3) [facility], [id number] 22:46:18 Test Item Value Reference Range Interpretation Comments PHOSPHORUS (test code = 3740816356) 2.7 mg/dL 2.5-5.0 Lab Interpretation (test code = Normal 46797-7) [facility] (NA, K, CL, CO2, GLUCOSE, BU, CREATININE, CA)2020-11-05 22:46:18 Test Item Value Reference Range Interpretation Comments NA (test code = 130 mmol/L 135-145 L 4338999206) K (test code = 4.2 mmol/L 3.5-5.0 3207240444) CL (test code = 95 mmol/L 98-108 L 4198668816) CO2 TOTAL (test code = 20 mmol/L 23-31 L 7496208414) AGAP (test code = 2-16 8939719217) BUN (test code = 18 mg/dL 7-23 2944838640) GLUCOSE (test code = 292 mg/dL 70-110 H 8937186715) CREATININE (test code = 0.64 mg/dL 0.60-1.25 8365615924) CALCIUM (test code = 8.9 mg/dL 8.6-10.6 4569155035) eGFR (test code = mL/min/1.73m2 4211953236) PATTI (test code = PATTI) Association of Glomerular Filtration Rate (GFR) and Staging of Kidney Disease* + --+ --+ ------+| GFR (mL/min/1.73 m2) ?| With Kidney Damage ?| ?Without Kidney Damage+ --------+ --------+ +| ?>90 ?| ?Stage one ?| ? Normal ?+ ---+ ---+ -------+| ?60-89 ?| ?Stage two ?| ? Decreased GFR ? + --+ --+ ------+| ?30-59 ?| ?Stage three ?| ? Stage three ? + --+ --+ ------+| ?15-29 ?| ?Stage four ? | ? Stage four ?+ ---+ ---+ -------+| ?<15 (or dialysis) ? ?| ?Stage five ? | ? Stage five ?+ ---+ ---+ -------+ *Each stage assumes the associated GFR level has been in effect for at least three months. ?Stages 1 to 5, with or without kidney disease, indicate chronic kidney disease. Notes: Determination of stages one and two (with eGFR >59mL/min/1.73 m2) requires estimation of kidney damage for at least three months as defined by structural or functional abnormalities of the kidney, manifested by either:Pathological abnormalities or Markers of kidney damage (including abnormalities in the composition of the blood or urine or abnormalities in imaging tests). Lab Interpretation Abnormal (test code = 16801-0) [facility], [id number] 22:46:18 Test Item Value Reference Range Interpretation Comments MAGNESIUM (test code = 3100471871) 2.3 mg/dL 1.7-2.4 Lab Interpretation (test code = Normal 56989-3) [facility], [id number] 22:46:18 Test Item Value Reference Range Interpretation Comments PHOSPHORUS (test code = 0239690009) 2.7 mg/dL 2.5-5.0 Lab Interpretation (test code = Normal 64963-8) [facility] (NA, K, CL, CO2, GLUCOSE, BU, CREATININE, CA)2020-11-05 22:46:18 Test Item Value Reference Range Interpretation Comments NA (test code = 130 mmol/L 135-145 L 1369805332) K (test code = 4.2 mmol/L 3.5-5.0 0194483524) CL (test code = 95 mmol/L 98-108 L 7474210223) CO2 TOTAL (test code = 20 mmol/L 23-31 L 4519624727) AGAP (test code = 2-16 7180906139) BUN (test code = 18 mg/dL 7-23 9438323560) GLUCOSE (test code = 292 mg/dL 70-110 H 4074280370) CREATININE (test code = 0.64 mg/dL 0.60-1.25 1103901317) CALCIUM (test code = 8.9 mg/dL 8.6-10.6 8430255116) eGFR (test code = mL/min/1.73m2 2286344759) PATTI (test code = PATTI) Association of Glomerular Filtration Rate (GFR) and Staging of Kidney Disease* + --+ --+ ------+| GFR (mL/min/1.73 m2) ?| With Kidney Damage ?| ?Without Kidney Damage+ --------+ --------+ +| ?>90 ?| ?Stage one ?| ? Normal ?+ ---+ ---+ -------+| ?60-89 ?| ?Stage two ?| ? Decreased GFR ? + --+ --+ ------+| ?30-59 ?| ?Stage three ?| ? Stage three ? + --+ --+ ------+| ?15-29 ?| ?Stage four ? | ? Stage four ?+ ---+ ---+ -------+| ?<15 (or dialysis) ? ?| ?Stage five ? | ? Stage five ?+ ---+ ---+ -------+ *Each stage assumes the associated GFR level has been in effect for at least three months. ?Stages 1 to 5, with or without kidney disease, indicate chronic kidney disease. Notes: Determination of stages one and two (with eGFR >59mL/min/1.73 m2) requires estimation of kidney damage for at least three months as defined by structural or functional abnormalities of the kidney, manifested by either:Pathological abnormalities or Markers of kidney damage (including abnormalities in the composition of the blood or urine or abnormalities in imaging tests). Lab Interpretation Abnormal (test code = 17264-9) [facility], [id number] 22:46:18 Test Item Value Reference Range Interpretation Comments MAGNESIUM (test code = 1964083518) 2.3 mg/dL 1.7-2.4 Lab Interpretation (test code = Normal 05915-7) [facility], [id number] 22:46:18 Test Item Value Reference Range Interpretation Comments PHOSPHORUS (test code = 4082173428) 2.7 mg/dL 2.5-5.0 Lab Interpretation (test code = Normal 88510-5) [facility] (NA, K, CL, CO2, GLUCOSE, BU, CREATININE, CA)2020-11-05 22:46:18 Test Item Value Reference Range Interpretation Comments NA (test code = 130 mmol/L 135-145 L 0924856643) K (test code = 4.2 mmol/L 3.5-5.0 7270141561) CL (test code = 95 mmol/L 98-108 L 2206921076) CO2 TOTAL (test code = 20 mmol/L 23-31 L 2854710180) AGAP (test code = 2-16 0921841089) BUN (test code = 18 mg/dL 7-23 2650663924) GLUCOSE (test code = 292 mg/dL 70-110 H 5018794591) CREATININE (test code = 0.64 mg/dL 0.60-1.25 6959928372) CALCIUM (test code = 8.9 mg/dL 8.6-10.6 7402318389) eGFR (test code = mL/min/1.73m2 0923175732) PATTI (test code = PATTI) Association of Glomerular Filtration Rate (GFR) and Staging of Kidney Disease* + --+ --+ ------+| GFR (mL/min/1.73 m2) ?| With Kidney Damage ?| ?Without Kidney Damage+ --------+ --------+ +| ?>90 ?| ?Stage one ?| ? Normal ?+ ---+ ---+ -------+| ?60-89 ?| ?Stage two ?| ? Decreased GFR ? + --+ --+ ------+| ?30-59 ?| ?Stage three ?| ? Stage three ? + --+ --+ ------+| ?15-29 ?| ?Stage four ? | ? Stage four ?+ ---+ ---+ -------+| ?<15 (or dialysis) ? ?| ?Stage five ? | ? Stage five ?+ ---+ ---+ -------+ *Each stage assumes the associated GFR level has been in effect for at least three months. ?Stages 1 to 5, with or without kidney disease, indicate chronic kidney disease. Notes: Determination of stages one and two (with eGFR >59mL/min/1.73 m2) requires estimation of kidney damage for at least three months as defined by structural or functional abnormalities of the kidney, manifested by either:Pathological abnormalities or Markers of kidney damage (including abnormalities in the composition of the blood or urine or abnormalities in imaging tests). Lab Interpretation Abnormal (test code = 19362-2) [facility], [id number] 22:46:18 Test Item Value Reference Range Interpretation Comments MAGNESIUM (test code = 0614421267) 2.3 mg/dL 1.7-2.4 Lab Interpretation (test code = Normal 29922-0) [facility], [id number] 22:46:18 Test Item Value Reference Range Interpretation Comments PHOSPHORUS (test code = 4887319946) 2.7 mg/dL 2.5-5.0 Lab Interpretation (test code = Normal 15407-6) [facility] (NA, K, CL, CO2, GLUCOSE, BU, CREATININE, CA)2020-11-05 22:46:18 Test Item Value Reference Range Interpretation Comments NA (test code = 130 mmol/L 135-145 L 8421479200) K (test code = 4.2 mmol/L 3.5-5.0 6088201909) CL (test code = 95 mmol/L 98-108 L 8615051578) CO2 TOTAL (test code = 20 mmol/L 23-31 L 9421320310) AGAP (test code = 2-16 9324860027) BUN (test code = 18 mg/dL 7-23 1689560622) GLUCOSE (test code = 292 mg/dL 70-110 H 9146636039) CREATININE (test code = 0.64 mg/dL 0.60-1.25 2971286187) CALCIUM (test code = 8.9 mg/dL 8.6-10.6 8954836987) eGFR (test code = mL/min/1.73m2 3547156550) PATTI (test code = PATTI) Association of Glomerular Filtration Rate (GFR) and Staging of Kidney Disease* + --+ --+ ------+| GFR (mL/min/1.73 m2) ?| With Kidney Damage ?| ?Without Kidney Damage+ --------+ --------+ +| ?>90 ?| ?Stage one ?| ? Normal ?+ ---+ ---+ -------+| ?60-89 ?| ?Stage two ?| ? Decreased GFR ? + --+ --+ ------+| ?30-59 ?| ?Stage three ?| ? Stage three ? + --+ --+ ------+| ?15-29 ?| ?Stage four ? | ? Stage four ?+ ---+ ---+ -------+| ?<15 (or dialysis) ? ?| ?Stage five ? | ? Stage five ?+ ---+ ---+ -------+ *Each stage assumes the associated GFR level has been in effect for at least three months. ?Stages 1 to 5, with or without kidney disease, indicate chronic kidney disease. Notes: Determination of stages one and two (with eGFR >59mL/min/1.73 m2) requires estimation of kidney damage for at least three months as defined by structural or functional abnormalities of the kidney, manifested by either:Pathological abnormalities or Markers of kidney damage (including abnormalities in the composition of the blood or urine or abnormalities in imaging tests). Lab Interpretation Abnormal (test code = 41094-7) [facility], [id number] 22:46:18 Test Item Value Reference Range Interpretation Comments MAGNESIUM (test code = 3096372587) 2.3 mg/dL 1.7-2.4 Lab Interpretation (test code = Normal 43718-5) [facility], [id number] 22:46:18 Test Item Value Reference Range Interpretation Comments PHOSPHORUS (test code = 9092142663) 2.7 mg/dL 2.5-5.0 Lab Interpretation (test code = Normal 57719-2) [facility] (ID NOW RAPID TESTING)2020-11-05 22:07:54 Test Item Value Reference Range Interpretation Comments SARS-CoV-2 Rapid ID NOW Not Detected Not Detected (test code = 04266-7) PATTI (test code = PATTI) ID NOW COVID-19 Assay is an isothermal nucleic acid amplification test intended for the qualitative detection of nucleic acid from SARS-CoV-2 viral RNA in nasopharyngeal ([employer]) specimens. It is used under Emergency Use Authorization (EUA) by FDA. The limit of detection (LOD) of the assay is 125 Genome Equivalents/mL. A positive result is indicative of the presence of SARS-CoV-2 RNA. ?Clinical correlation with patient history and other diagnostic information is necessary to determine patient infection status. A negative (Not Detected) result does not preclude SARS-CoV-2 infection. In patients with clinical symptoms and other tests that are consistent with SARS-CoV-2 infection, negative results should be treated as presumptive negative and a new specimen should be tested with alternative PCR molecular test. Invalid: Please collect a new specimen for repeat patient testing if clinically indicated. Lab Interpretation Normal (test code = 08942-8) [facility] NOW RAPID TESTING)2020-11-05 22:07:54 Test Item Value Reference Range Interpretation Comments SARS-CoV-2 Rapid ID NOW Not Detected Not Detected (test code = 81308-8) PATTI (test code = PATTI) ID NOW COVID-19 Assay is an isothermal nucleic acid amplification test intended for the qualitative detection of nucleic acid from SARS-CoV-2 viral RNA in nasopharyngeal ([employer]ACHINE [employer]PERATOR) specimens. It is used under Emergency Use Authorization (EUA) by FDA. The limit of detection (LOD) of the assay is 125 Genome Equivalents/mL. A positive result is indicative of the presence of SARS-CoV-2 RNA. ?Clinical correlation with patient history and other diagnostic information is necessary to determine patient infection status. A negative (Not Detected) result does not preclude SARS-CoV-2 infection. In patients with clinical symptoms and other tests that are consistent with SARS-CoV-2 infection, negative results should be treated as presumptive negative and a new specimen should be tested with alternative PCR molecular test. Invalid: Please collect a new specimen for repeat patient testing if clinically indicated. Lab Interpretation Normal (test code = 96486-8) [facility] NOW RAPID TESTING)2020-11-05 22:07:54 Test Item Value Reference Range Interpretation Comments SARS-CoV-2 Rapid ID NOW Not Detected Not Detected (test code = 52030-3) PATTI (test code = PATTI) ID NOW COVID-19 Assay is an isothermal nucleic acid amplification test intended for the qualitative detection of nucleic acid from SARS-CoV-2 viral RNA in nasopharyngeal ([employer]ACHINE [employer]PERATOR) specimens. It is used under Emergency Use Authorization (EUA) by FDA. The limit of detection (LOD) of the assay is 125 Genome Equivalents/mL. A positive result is indicative of the presence of SARS-CoV-2 RNA. ?Clinical correlation with patient history and other diagnostic information is necessary to determine patient infection status. A negative (Not Detected) result does not preclude SARS-CoV-2 infection. In patients with clinical symptoms and other tests that are consistent with SARS-CoV-2 infection, negative results should be treated as presumptive negative and a new specimen should be tested with alternative PCR molecular test. Invalid: Please collect a new specimen for repeat patient testing if clinically indicated. Lab Interpretation Normal (test code = 97813-5) [facility] NOW [facility]ID TESTING)2020-11-05 22:07:54 Test Item Value Reference Range Interpretation Comments SARS-CoV-2 Rapid ID NOW Not Detected Not Detected (test code = 42355-1) PATTI (test code = PATTI) ID NOW COVID-19 Assay is an isothermal nucleic acid amplification test intended for the qualitative detection of nucleic acid from SARS-CoV-2 viral RNA in nasopharyngeal ([employer] MACHINE OPERATOR) specimens. It is used under Emergency Use Authorization (EUA) by FDA. The limit of detection (LOD) of the assay is 125 Genome Equivalents/mL. A positive result is indicative of the presence of SARS-CoV-2 RNA. ?Clinical correlation with patient history and other diagnostic information is necessary to determine patient infection status. A negative (Not Detected) result does not preclude SARS-CoV-2 infection. In patients with clinical symptoms and other tests that are consistent with SARS-CoV-2 infection, negative results should be treated as presumptive negative and a new specimen should be tested with alternative PCR molecular test. Invalid: Please collect a new specimen for repeat patient testing if clinically indicated. Lab Interpretation Normal (test code = 94913-9) [facility] NOW RAPID TESTING)2020-11-05 22:07:54 Test Item Value Reference Range Interpretation Comments SARS-CoV-2 Rapid ID NOW Not Detected Not Detected (test code = 09071-5) PATTI (test code = PATTI) ID NOW COVID-19 Assay is an isothermal nucleic acid amplification test intended for the qualitative detection of nucleic acid from SARS-CoV-2 viral RNA in nasopharyngeal ([employer]ACHINE OPERATOR) specimens. It is used under Emergency Use Authorization (EUA) by FDA. The limit of detection (LOD) of the assay is 125 Genome Equivalents/mL. A positive result is indicative of the presence of SARS-CoV-2 RNA. ?Clinical correlation with patient history and other diagnostic information is necessary to determine patient infection status. A negative (Not Detected) result does not preclude SARS-CoV-2 infection. In patients with clinical symptoms and other tests that are consistent with SARS-CoV-2 infection, negative results should be treated as presumptive negative and a new specimen should be tested with alternative PCR molecular test. Invalid: Please collect a new specimen for repeat patient testing if clinically indicated. Lab Interpretation Normal (test code = 86472-8) [facility] GLUCOSE (AUTOMATED)2020-11-05 21:46:02 Test Item Value Reference Range Interpretation Comments POCT GLU (test code = 0609220159) 291 mg/dL 70-110 H Lab Interpretation (test code = Abnormal 42140-0) [facility] GLUCOSE (AUTOMATED)2020-11-05 21:46:02 Test Item Value Reference Range Interpretation Comments POCT GLU (test code = 5954779909) 291 mg/dL 70-110 H Lab Interpretation (test code = Abnormal 29273-3) [facility] GLUCOSE (AUTOMATED)2020-11-05 21:46:02 Test Item Value Reference Range Interpretation Comments POCT GLU (test code = 8273470354) 291 mg/dL 70-110 H Lab Interpretation (test code = Abnormal 74069-9) [facility] GLUCOSE (AUTOMATED)2020-11-05 21:46:02 Test Item Value Reference Range Interpretation Comments POCT GLU (test code = 6925009701) 291 mg/dL 70-110 H Lab Interpretation (test code = Abnormal 00015-2) [facility] GLUCOSE (AUTOMATED)2020-11-05 21:46:02 Test Item Value Reference Range Interpretation Comments POCT GLU (test code = 1287228353) 291 mg/dL 70-110 H Lab Interpretation (test code = Abnormal 38210-3) [facility] Lgbjuqx9461-72-46 21:14:19 Test Item Value Reference Range Interpretation Comments IONIZED CA (test code = 4.60 mg/dL 4.50-5.30 3873268737) PH SERUM (test code = 3393657005) 7.35-7.45 Lab Interpretation (test code = Normal 89918-3) [facility] Yokuzbm8096-11-09 21:14:19 Test Item Value Reference Range Interpretation Comments IONIZED CA (test code = 4.60 mg/dL 4.50-5.30 1799920651) PH SERUM (test code = 5386342353) 7.35-7.45 Lab Interpretation (test code = Normal 14695-5) [facility] Jrlcdvx2828-76-97 21:14:19 Test Item Value Reference Range Interpretation Comments IONIZED CA (test code = 4.60 mg/dL 4.50-5.30 6416196966) PH SERUM (test code = 6063971927) 7.35-7.45 Lab Interpretation (test code = Normal 07570-5) [facility] Tercqva8530-29-29 21:14:19 Test Item Value Reference Range Interpretation Comments IONIZED CA (test code = 4.60 mg/dL 4.50-5.30 7886194841) PH SERUM (test code = 6947405449) 7.35-7.45 Lab Interpretation (test code = Normal 78789-1) [facility]2021-05-07 21:14:19 Test Item Value Reference Range Interpretation Comments IONIZED CA (test code = 4.60 mg/dL 4.50-5.30 2870223616) PH SERUM (test code = 9915571324) 7.35-7.45 Lab Interpretation (test code = Normal 43607-9) [facility] with Itcumsfsqiiz6662-73-19 20:43:52 Test Item Value Reference Range Interpretation Comments WBC (test code = See_Comment H [Automated 6690-2) message] The system which generated this result transmit marcelina reference range : 4.20 - 10.70 10*3/?L. The reference range was not used to interpret this result as normal/abnormal . RBC (test code = See_Comment L [Automated 789-8) message] The system which generated this result transmit marcelina reference range : 4.26 - 5.52 10*6/?L. The reference range was not used to interpret this result as normal/abnormal . HGB (test code = 11.2 g/dL 12.2-16.4 L 718-7) HCT (test code = 34.0 % 38.4-49.3 L 4544-3) MCV (test code = 87.6 fL 81.7-95.6 787-2) MCH (test code = 28.9 pg 26.1-32.7 785-6) MCHC (test code = 32.9 g/dL 31.2-35.0 786-4) RDW-SD (test code = 39.9 fL 38.5-51.6 06811-1) RDW-CV (test code = 12.5 % 12.1-15.4 788-0) PLT (test code = See_Comment [Automated 777-3) message] The system which generated this result transmit marcelina reference range : 150 - 328 10*3/ ?L. The reference range was not u sed to interpret th is result as normal/abnormal . MPV (test code = 11.6 fL 9.8-13.0 48300-7) NRBC/100 WBC (test See_Comment [Automat ed code = 4473057103) message] The system which generated this result transmit marcelina reference range : 0.0 - 10.0 /100 WBCs. The reference range was not used to interpret this result as normal/abnormal . NRBC x10^3 (test code <0.01 See_Comment [Auto mated = 8976794664) message] The system which generated this result transmit marcelina reference range : 10*3/?L. The reference range was not used to interpret this result as normal/abnormal . GRAN MAT (NEUT) % 83.2 % (test code = 770-8) IMM GRAN % (test code 1.30 % = 3655724382) LYMPH % (test code = 6.7 % 736-9) MONO % (test code = 8.3 % 5905-5) EOS % (test code = 0.1 % 713-8) BASO % (test code = 0.4 % 706-2) GRAN MAT x10^3(ANC) 17.89 10*3/uL 1.99-6.95 H (test code = 4587472702) IMM GRAN x10^3 (test 0.27 10*3/uL 0.00-0.06 H code = 0040665815) LYMPH x10^3 (test code 1.44 10*3/uL 1.09-3.23 = 731-0) MONO x10^3 (test code 1.79 10*3/uL 0.36-1.02 H = 742-7) EOS x10^3 (test code = 0.03 10*3/uL 0.06-0.53 L 711-2) BASO x10^3 (test code 0.08 10*3/uL 0.01-0.09 = 704-7) TOXIC CHANGES (test Present A code = 803-7) Lab Interpretation Abnormal (test code = 13023-7) [facility] with Tdbufclovtga0266-26-89 20:43:52 Test Item Value Reference Range Interpretation Comments WBC (test code = See_Comment H [Automated 3690-2) message] The system which generated this result transmit marcelina reference range : 4.20 - 10.70 10*3/?L. The reference range was not used to interpret this result as normal/abnormal . RBC (test code = See_Comment L [Automated 759-8) message] The system which generated this result transmit marcelina reference range : 4.26 - 5.52 10*6/?L. The reference range was not used to interpret this result as normal/abnormal . HGB (test code = 11.2 g/dL 12.2-16.4 L 718-7) HCT (test code = 34.0 % 38.4-49.3 L 4544-3) MCV (test code = 87.6 fL 81.7-95.6 787-2) MCH (test code = 28.9 pg 26.1-32.7 785-6) MCHC (test code = 32.9 g/dL 31.2-35.0 786-4) RDW-SD (test code = 39.9 fL 38.5-51.6 83711-9) RDW-CV (test code = 12.5 % 12.1-15.4 788-0) PLT (test code = See_Comment [Automated 777-3) message] The system which generated this result transmit marcelina reference range : 150 - 328 10*3/ ?L. The reference range was not u sed to interpret th is result as normal/abnormal . MPV (test code = 11.6 fL 9.8-13.0 59385-6) NRBC/100 WBC (test See_Comment [Automat ed code = 0566632829) message] The system which generated this result transmit marcelina reference range : 0.0 - 10.0 /100 WBCs. The reference range was not used to interpret this result as normal/abnormal . NRBC x10^3 (test code <0.01 See_Comment [Auto mated = 5975683930) message] The system which generated this result transmit marcelina reference range : 10*3/?L. The reference range was not used to interpret this result as normal/abnormal . GRAN MAT (NEUT) % 83.2 % (test code = 770-8) IMM GRAN % (test code 1.30 % = 2144859867) LYMPH % (test code = 6.7 % 736-9) MONO % (test code = 8.3 % 5905-5) EOS % (test code = 0.1 % 713-8) BASO % (test code = 0.4 % 706-2) GRAN MAT x10^3(ANC) 17.89 10*3/uL 1.99-6.95 H (test code = 2182763999) IMM GRAN x10^3 (test 0.27 10*3/uL 0.00-0.06 H code = 2428431940) LYMPH x10^3 (test code 1.44 10*3/uL 1.09-3.23 = 731-0) MONO x10^3 (test code 1.79 10*3/uL 0.36-1.02 H = 742-7) EOS x10^3 (test code = 0.03 10*3/uL 0.06-0.53 L 711-2) BASO x10^3 (test code 0.08 10*3/uL 0.01-0.09 = 704-7) TOXIC CHANGES (test Present A code = 803-7) Lab Interpretation Abnormal (test code = 58365-3) [facility] with Unlxmyhyeoyz2445-30-91 20:43:52 Test Item Value Reference Range Interpretation Comments WBC (test code = See_Comment H [Automated 0990-2) message] The system which generated this result transmit marcelina reference range : 4.20 - 10.70 10*3/?L. The reference range was not used to interpret this result as normal/abnormal . RBC (test code = See_Comment L [Automated 879-8) message] The system which generated this result transmit marcelina reference range : 4.26 - 5.52 10*6/?L. The reference range was not used to interpret this result as normal/abnormal . HGB (test code = 11.2 g/dL 12.2-16.4 L 718-7) HCT (test code = 34.0 % 38.4-49.3 L 4544-3) MCV (test code = 87.6 fL 81.7-95.6 787-2) MCH (test code = 28.9 pg 26.1-32.7 785-6) MCHC (test code = 32.9 g/dL 31.2-35.0 786-4) RDW-SD (test code = 39.9 fL 38.5-51.6 59074-8) RDW-CV (test code = 12.5 % 12.1-15.4 788-0) PLT (test code = See_Comment [Automated 777-3) message] The system which generated this result transmit marcelina reference range : 150 - 328 10*3/ ?L. The reference range was not u sed to interpret th is result as normal/abnormal . MPV (test code = 11.6 fL 9.8-13.0 98691-3) NRBC/100 WBC (test See_Comment [Automat ed code = 5636189920) message] The system which generated this result transmit marcelina reference range : 0.0 - 10.0 /100 WBCs. The reference range was not used to interpret this result as normal/abnormal . NRBC x10^3 (test code <0.01 See_Comment [Auto mated = 3938539893) message] The system which generated this result transmit marcelina reference range : 10*3/?L. The reference range was not used to interpret this result as normal/abnormal . GRAN MAT (NEUT) % 83.2 % (test code = 770-8) IMM GRAN % (test code 1.30 % = 0339679073) LYMPH % (test code = 6.7 % 736-9) MONO % (test code = 8.3 % 5905-5) EOS % (test code = 0.1 % 713-8) BASO % (test code = 0.4 % 706-2) GRAN MAT x10^3(ANC) 17.89 10*3/uL 1.99-6.95 H (test code = 9233368750) IMM GRAN x10^3 (test 0.27 10*3/uL 0.00-0.06 H code = 6660379056) LYMPH x10^3 (test code 1.44 10*3/uL 1.09-3.23 = 731-0) MONO x10^3 (test code 1.79 10*3/uL 0.36-1.02 H = 742-7) EOS x10^3 (test code = 0.03 10*3/uL 0.06-0.53 L 711-2) BASO x10^3 (test code 0.08 10*3/uL 0.01-0.09 = 704-7) TOXIC CHANGES (test Present A code = 803-7) Lab Interpretation Abnormal (test code = 83195-8) [facility] with Qqyttilzwsjk2555-81-09 20:43:52 Test Item Value Reference Range Interpretation Comments WBC (test code = See_Comment H [Automated 6690-2) message] The system which generated this result transmit marcelina reference range : 4.20 - 10.70 10*3/?L. The reference range was not used to interpret this result as normal/abnormal . RBC (test code = See_Comment L [Automated 789-8) message] The system which generated this result transmit marcelina reference range : 4.26 - 5.52 10*6/?L. The reference range was not used to interpret this result as normal/abnormal . HGB (test code = 11.2 g/dL 12.2-16.4 L 718-7) HCT (test code = 34.0 % 38.4-49.3 L 4544-3) MCV (test code = 87.6 fL 81.7-95.6 787-2) MCH (test code = 28.9 pg 26.1-32.7 785-6) MCHC (test code = 32.9 g/dL 31.2-35.0 786-4) RDW-SD (test code = 39.9 fL 38.5-51.6 15473-0) RDW-CV (test code = 12.5 % 12.1-15.4 788-0) PLT (test code = See_Comment [Automated 777-3) message] The system which generated this result transmit marcelina reference range : 150 - 328 10*3/ ?L. The reference range was not u sed to interpret th is result as normal/abnormal . MPV (test code = 11.6 fL 9.8-13.0 37256-8) NRBC/100 WBC (test See_Comment [Automat ed code = 9945134178) message] The system which generated this result transmit marcelina reference range : 0.0 - 10.0 /100 WBCs. The reference range was not used to interpret this result as normal/abnormal . NRBC x10^3 (test code <0.01 See_Comment [Auto mated = 3322599625) message] The system which generated this result transmit marcelina reference range : 10*3/?L. The reference range was not used to interpret this result as normal/abnormal . GRAN MAT (NEUT) % 83.2 % (test code = 770-8) IMM GRAN % (test code 1.30 % = 4159151148) LYMPH % (test code = 6.7 % 736-9) MONO % (test code = 8.3 % 5905-5) EOS % (test code = 0.1 % 713-8) BASO % (test code = 0.4 % 706-2) GRAN MAT x10^3(ANC) 17.89 10*3/uL 1.99-6.95 H (test code = 6382845396) IMM GRAN x10^3 (test 0.27 10*3/uL 0.00-0.06 H code = 6293745935) LYMPH x10^3 (test code 1.44 10*3/uL 1.09-3.23 = 731-0) MONO x10^3 (test code 1.79 10*3/uL 0.36-1.02 H = 742-7) EOS x10^3 (test code = 0.03 10*3/uL 0.06-0.53 L 711-2) BASO x10^3 (test code 0.08 10*3/uL 0.01-0.09 = 704-7) TOXIC CHANGES (test Present A code = 803-7) Lab Interpretation Abnormal (test code = 36691-8) [facility] with Xdysnpnpxgmc1551-51-19 20:43:52 Test Item Value Reference Range Interpretation Comments WBC (test code = See_Comment H [Automated 6690-2) message] The system which generated this result transmit marcelina reference range : 4.20 - 10.70 10*3/?L. The reference range was not used to interpret this result as normal/abnormal . RBC (test code = See_Comment L [Automated 789-8) message] The system which generated this result transmit marcelina reference range : 4.26 - 5.52 10*6/?L. The reference range was not used to interpret this result as normal/abnormal . HGB (test code = 11.2 g/dL 12.2-16.4 L 718-7) HCT (test code = 34.0 % 38.4-49.3 L 4544-3) MCV (test code = 87.6 fL 81.7-95.6 787-2) MCH (test code = 28.9 pg 26.1-32.7 785-6) MCHC (test code = 32.9 g/dL 31.2-35.0 786-4) RDW-SD (test code = 39.9 fL 38.5-51.6 40446-6) RDW-CV (test code = 12.5 % 12.1-15.4 788-0) PLT (test code = See_Comment [Automated 777-3) message] The system which generated this result transmit marcelina reference range : 150 - 328 10*3/ ?L. The reference range was not u sed to interpret th is result as normal/abnormal . MPV (test code = 11.6 fL 9.8-13.0 03556-1) NRBC/100 WBC (test See_Comment [Automat ed code = 8285386460) message] The system which generated this result transmit marcelina reference range : 0.0 - 10.0 /100 WBCs. The reference range was not used to interpret this result as normal/abnormal . NRBC x10^3 (test code <0.01 See_Comment [Auto mated = 8532826930) message] The system which generated this result transmit marcelina reference range : 10*3/?L. The reference range was not used to interpret this result as normal/abnormal . GRAN MAT (NEUT) % 83.2 % (test code = 770-8) IMM GRAN % (test code 1.30 % = 8937005200) LYMPH % (test code = 6.7 % 736-9) MONO % (test code = 8.3 % 5905-5) EOS % (test code = 0.1 % 713-8) BASO % (test code = 0.4 % 706-2) GRAN MAT x10^3(ANC) 17.89 10*3/uL 1.99-6.95 H (test code = 8577454279) IMM GRAN x10^3 (test 0.27 10*3/uL 0.00-0.06 H code = 8310230099) LYMPH x10^3 (test code 1.44 10*3/uL 1.09-3.23 = 731-0) MONO x10^3 (test code 1.79 10*3/uL 0.36-1.02 H = 742-7) EOS x10^3 (test code = 0.03 10*3/uL 0.06-0.53 L 711-2) BASO x10^3 (test code 0.08 10*3/uL 0.01-0.09 = 704-7) TOXIC CHANGES (test Present A code = 803-7) Lab Interpretation Abnormal (test code = 60488-8) [facility] Acid Whole Otynn2948-81-05 19:58:41 Test Item Value Reference Range Interpretation Comments LACTIC ACID (test code = 1.74 mmol/L 0.50-2.20 8572552592) Lab Interpretation (test code = Normal 69480-8) [facility] Acid Whole Rrlsp8975-93-70 19:58:41 Test Item Value Reference Range Interpretation Comments LACTIC ACID (test code = 1.74 mmol/L 0.50-2.20 9366410655) Lab Interpretation (test code = Normal 32915-4) [facility] Acid Whole Seoqk3134-81-24 19:58:41 Test Item Value Reference Range Interpretation Comments LACTIC ACID (test code = 1.74 mmol/L 0.50-2.20 3519432235) Lab Interpretation (test code = Normal 20106-8) [facility] Acid Whole Tjnoz0024-34-76 19:58:41 Test Item Value Reference Range Interpretation Comments LACTIC ACID (test code = 1.74 mmol/L 0.50-2.20 9148464249) Lab Interpretation (test code = Normal 57820-9) [facility] Acid Whole Ehlsj3276-04-44 19:58:41 Test Item Value Reference Range Interpretation Comments LACTIC ACID (test code = 1.74 mmol/L 0.50-2.20 5689811275) Lab Interpretation (test code = Normal 04046-9) [facility] GLUCOSE (AUTOMATED)2020-11-05 19:52:28 Test Item Value Reference Range Interpretation Comments POCT GLU (test code = 4554844329) 344 mg/dL 70-110 H Lab Interpretation (test code = Abnormal 39946-6) [facility] GLUCOSE (AUTOMATED)2020-11-05 19:52:28 Test Item Value Reference Range Interpretation Comments POCT GLU (test code = 6722179648) 344 mg/dL 70-110 H Lab Interpretation (test code = Abnormal 95054-5) [facility] GLUCOSE (AUTOMATED)2020-11-05 19:52:28 Test Item Value Reference Range Interpretation Comments POCT GLU (test code = 0714036793) 344 mg/dL 70-110 H Lab Interpretation (test code = Abnormal 29752-6) [facility] GLUCOSE (AUTOMATED)2020-11-05 19:52:28 Test Item Value Reference Range Interpretation Comments POCT GLU (test code = 3231808043) 344 mg/dL 70-110 H Lab Interpretation (test code = Abnormal 30933-3) [facility] GLUCOSE (AUTOMATED)2020-11-05 19:52:28 Test Item Value Reference Range Interpretation Comments POCT GLU (test code = 6379779600) 344 mg/dL 70-110 H Lab Interpretation (test code = Abnormal 51534-1) [facility] VLGMWTX3563-75-83 00:00:00Consult received and chart reviewed via [employer]. ?Please refer to progress note for details. Yenifer [phone] pgr.[facility] GLUCOSE (AUTOMATED)2020-06-30 17:40:00 Test Item Value Reference Range Interpretation Comments POCT GLU (test code = 3789603091) 205 mg/dL 70-110 H Lab Interpretation (test code = Abnormal 36045-3) [facility] GLUCOSE (AUTOMATED)2020-06-30 13:58:00 Test Item Value Reference Range Interpretation Comments POCT GLU (test code = 6679863892) 168 mg/dL 70-110 H Lab Interpretation (test code = Abnormal 33598-8) [facility] - Draw immediately prior to the 4TH qgrq3097-32-82 10:01:00 Test Item Value Reference Range Interpretation Comments VANCO TROUGH (test code <5.0 10-20 L = 5342746134) PATTI (test code = PATTI) Toxic Range: ?>20 ug/mL 15-20 ug/mL is recommended for severe infection or when Vancomycin ADALBERTO is greater than or equal to 2. Lab Interpretation (test Abnormal code = 21631-5) [facility] (NA, K, CL, CO2, GLUCOSE, BUN, CREATININE, CA)2020-06-30 06:48:00 Test Item Value Reference Range Interpretation Comments NA (test code = 136 mmol/L 135-145 1168290304) K (test code = 3.8 mmol/L 3.5-5 5159400666) CL (test code = 103 mmol/L 98-108 4808331020) CO2 TOTAL (test code = 28 mmol/L 23-31 5468477091) AGAP (test code = 2-16 6984252338) BUN (test code = 15 mg/dL 7-23 5520157926) GLUCOSE (test code = 198 mg/dL 70-110 H 1642181446) CREATININE (test code = 0.63 mg/dL 0.6-1.25 8031315522) CALCIUM (test code = 8.3 mg/dL 8.6-10.6 L 3836289862) eGFR Calculation mL/min/1.73m2 (Non-) (test code = 1248593305) eGFR Calculation mL/min/1.73m2 () (test code = 0566001676) PATTI (test code = PATTI) Association of Glomerular Filtration Rate (GFR) and Staging of Kidney Disease* + --+ --+ ------+| GFR (mL/min/1.73 m2) ?| With Kidney Damage ?| ?Without Kidney Damage+ --------+ --------+ +| ?>90 ?| ?Stage one ?| ? Normal ?+ ---+ ---+ -------+| ?60-89 ?| ?Stage two ?| ? Decreased GFR ? + --+ --+ ------+| ?30-59 ?| ?Stage three ?| ? Stage three ? + --+ --+ ------+| ?15-29 ?| ?Stage four ? | ? Stage four ?+ ---+ ---+ -------+| ?<15 (or dialysis) ? ?| ?Stage five ? | ? Stage five ?+ ---+ ---+ -------+ *Each stage assumes the associated GFR level has been in effect for at least three months. ?Stages 1 to 5, with or without kidney disease, indicate chronic kidney disease. Notes: Determination of stages one and two (with eGFR >59mL/min/1.73 m2) requires estimation of kidney damage for at least three months as defined by structural or functional abnormalities of the kidney, manifested by either:Pathological abnormalities or Markers of kidney damage (including abnormalities in the composition of the blood or urine or abnormalities in imaging tests). Lab Interpretation Abnormal (test code = 73919-2) [facility] WITH [id number] 06:40:00 Test Item Value Reference Range Interpretation Comments WBC (test code = See_Comment [Automated 9090-2) message] The sy stem which generated this result transmitted reference range : 4.20 - 10.70 10*3/?L. The reference range was not used to interpret this result as normal/abnormal . RBC (test code = See_Comment L [Automated 789-8) message] The sy stem which generated this result transmitted reference range : 4.26 - 5.52 10*6/?L. The reference range was not used to interpret this result as normal/abnormal . HGB (test code = 10.6 g/dL 12.2-16.4 L 718-7) HCT (test code = 31.7 % 38.4-49.3 L 4544-3) MCV (test code = 92.2 fL 81.7-95.6 787-2) MCH (test code = 30.8 pg 26.1-32.7 785-6) MCHC (test code = 33.4 g/dL 31.2-35 786-4) RDW-SD (test code = 41.1 fL 38.5-51.6 95645-6) RDW-CV (test code = 12.2 % 12.1-15.4 788-0) PLT (test code = See_Comment [Automated 777-3) message] The sy stem which generated this result transmitted reference range : 150 - 328 10*3/ ?L. The reference r ivett was not used to interpret this result as normal/abnormal . MPV (test code = 10.4 fL 9.8-13 16611-4) NRBC/100 WBC (test See_Comment [Automat ed code = 1931303787) message] The system which generated this result transmitted reference range : 0.0 - 10.0 /100 WBCs. The refer ence range was not u sed to interpret th is result as normal/abnormal . NRBC x10^3 (test code <0.01 See_Comment [Auto mated = 2480112160) message] The s ystem which generated this result transmitted reference range : 10*3/?L. The reference range was not used to interpret this result as normal/abnormal . GRAN MAT (NEUT) % 73.4 % (test code = 770-8) IMM GRAN % (test code 0.60 % = 1464768838) LYMPH % (test code = 15.4 % 736-9) MONO % (test code = 10.1 % 5905-5) EOS % (test code = 0.2 % 713-8) BASO % (test code = 0.3 % 706-2) GRAN MAT x10^3(ANC) 7.20 10*3/uL 1.99-6.95 H (test code = 2507760255) IMM GRAN x10^3 (test 0.06 10*3/uL 0-0.06 code = 7439027992) LYMPH x10^3 (test code 1.51 10*3/uL 1.09-3.23 = 731-0) MONO x10^3 (test code 0.99 10*3/uL 0.36-1.02 = 742-7) EOS x10^3 (test code = <0.03 0.06-0.53 L 711-2) BASO x10^3 (test code 0.03 10*3/uL 0.01-0.09 = 704-7) Lab Interpretation Abnormal (test code = 27915-5) [facility] GLUCOSE (AUTOMATED)2020-06-30 01:38:00 Test Item Value Reference Range Interpretation Comments POCT GLU (test code = 1651934627) 282 mg/dL 70-110 H Lab Interpretation (test code = Abnormal 29238-4) [facility] GLUCOSE (AUTOMATED)2020-06-29 22:41:00 Test Item Value Reference Range Interpretation Comments POCT GLU (test code = 5175384672) 255 mg/dL 70-110 H Lab Interpretation (test code = Abnormal 83080-5) [facility] GLUCOSE (AUTOMATED)2020-06-29 17:39:00 Test Item Value Reference Range Interpretation Comments POCT GLU (test code = 3611829200) 272 mg/dL 70-110 H Lab Interpretation (test code = Abnormal 48547-1) [facility]A1C)2020-06-29 16:11:00 Test Item Value Reference Range Interpretation Comments HGB A1C (test code = 4548-4) 10.7 % 4-6 H Lab Interpretation (test code = Abnormal 02213-2) [facility]2020-06-29 14:02:00 Test Item Value Reference Range Interpretation Comments POCT GLU (test code = 7854582460) 234 mg/dL 70-110 H Lab Interpretation (test code = Abnormal 46244-1) [facility] (NA, K, CL, CO2, GLUCOSE, BUN, CREATININE, CA)2020-06-29 09:58:00 Test Item Value Reference Range Interpretation Comments NA (test code = 133 mmol/L 135-145 L 3883995894) K (test code = 4.0 mmol/L 3.5-5 3886213783) CL (test code = 102 mmol/L 98-108 4530352820) CO2 TOTAL (test code = 23 mmol/L 23-31 9708247157) AGAP (test code = 2-16 6969984802) BUN (test code = 20 mg/dL 7-23 8147551313) GLUCOSE (test code = 227 mg/dL 70-110 H 6348366016) CREATININE (test code = 0.62 mg/dL 0.6-1.25 0988513806) CALCIUM (test code = 8.5 mg/dL 8.6-10.6 L 6242708365) eGFR Calculation mL/min/1.73m2 (Non-) (test code = 3242273398) eGFR Calculation mL/min/1.73m2 () (test code = 5728871116) PATTI (test code = PATTI) Association of Glomerular Filtration Rate (GFR) and Staging of Kidney Disease* + --+ --+ ------+| GFR (mL/min/1.73 m2) ?| With Kidney Damage ?| ?Without Kidney Damage+ --------+ --------+ +| ?>90 ?| ?Stage one ?| ? Normal ?+ ---+ ---+ -------+| ?60-89 ?| ?Stage two ?| ? Decreased GFR ? + --+ --+ ------+| ?30-59 ?| ?Stage three ?| ? Stage three ? + --+ --+ ------+| ?15-29 ?| ?Stage four ? | ? Stage four ?+ ---+ ---+ -------+| ?<15 (or dialysis) ? ?| ?Stage five ? | ? Stage five ?+ ---+ ---+ -------+ *Each stage assumes the associated GFR level has been in effect for at least three months. ?Stages 1 to 5, with or without kidney disease, indicate chronic kidney disease. Notes: Determination of stages one and two (with eGFR >59mL/min/1.73 m2) requires estimation of kidney damage for at least three months as defined by structural or functional abnormalities of the kidney, manifested by either:Pathological abnormalities or Markers of kidney damage (including abnormalities in the composition of the blood or urine or abnormalities in imaging tests). Lab Interpretation Abnormal (test code = 31759-0) [facility] WITH [id number] 09:37:00 Test Item Value Reference Range Interpretation Comments WBC (test code = See_Comment H [Automated 7290-2) message] The sy stem which generated this result transmitted reference range : 4.20 - 10.70 10*3/?L. The reference range was not used to interpret this result as normal/abnormal . RBC (test code = See_Comment L [Automated 439-8) message] The sy stem which generated this result transmitted reference range : 4.26 - 5.52 10*6/?L. The reference range was not used to interpret this result as normal/abnormal . HGB (test code = 11.2 g/dL 12.2-16.4 L 718-7) HCT (test code = 33.2 % 38.4-49.3 L 4544-3) MCV (test code = 91.5 fL 81.7-95.6 787-2) MCH (test code = 30.9 pg 26.1-32.7 785-6) MCHC (test code = 33.7 g/dL 31.2-35 786-4) RDW-SD (test code = 40.7 fL 38.5-51.6 48477-3) RDW-CV (test code = 12.1 % 12.1-15.4 788-0) PLT (test code = See_Comment [Automated 777-3) message] The sy stem which generated this result transmitted reference range : 150 - 328 10*3/ ?L. The reference r ivett was not used to interpret this result as normal/abnormal . MPV (test code = 10.5 fL 9.8-13 24158-5) NRBC/100 WBC (test See_Comment [Automat ed code = 8428644533) message] The system which generated this result transmitted reference range : 0.0 - 10.0 /100 WBCs. The refer ence range was not u sed to interpret th is result as normal/abnormal . NRBC x10^3 (test code <0.01 See_Comment [Auto mated = 5398881406) message] The s ystem which generated this result transmitted reference range : 10*3/?L. The reference range was not used to interpret this result as normal/abnormal . GRAN MAT (NEUT) % 77.7 % (test code = 770-8) IMM GRAN % (test code 0.40 % = 1965853604) LYMPH % (test code = 10.5 % 736-9) MONO % (test code = 10.8 % 5905-5) EOS % (test code = 0.2 % 713-8) BASO % (test code = 0.4 % 706-2) GRAN MAT x10^3(ANC) 9.88 10*3/uL 1.99-6.95 H (test code = 5147892873) IMM GRAN x10^3 (test 0.05 10*3/uL 0-0.06 code = 7490708918) LYMPH x10^3 (test code 1.34 10*3/uL 1.09-3.23 = 731-0) MONO x10^3 (test code 1.38 10*3/uL 0.36-1.02 H = 742-7) EOS x10^3 (test code = <0.03 0.06-0.53 L 711-2) BASO x10^3 (test code 0.05 10*3/uL 0.01-0.09 = 704-7) Lab Interpretation Abnormal (test code = 91873-1) [facility] GLUCOSE (AUTOMATED)2020-06-29 06:19:00 Test Item Value Reference Range Interpretation Comments POCT GLU (test code = 8798930950) 223 mg/dL 70-110 H Lab Interpretation (test code = Abnormal 55332-6) [facility] GLUCOSE (AUTOMATED)2020-06-29 02:24:00 Test Item Value Reference Range Interpretation Comments POCT GLU (test code = 9979688594) 327 mg/dL 70-110 H Lab Interpretation (test code = Abnormal 65290-9) [facility] Test Item Value Reference Range Interpretation Comments APPEARANCE (test code = Clear Clear 8997587321) COLOR (test code = Yellow Yellow 5352107179) PH (test code = 4.8-8.0 2787598324) SP GRAVITY (test code = 1.003-1.030 5214462434) GLU U QUAL (test code = 500 mg/dL Normal A 2258588172) BLOOD (test code = Negative Negative 2982876059) KETONES (test code = Negative Negative 7218035649) PROTEIN (test code = 30 mg/dL Negative A 2887-8) UROBILIN (test code = Normal Normal 9299683882) BILIRUBIN (test code = Negative Negative 5595157037) NITRITE (test code = Negative Negative 8266967558) LEUK OSCAR (test code = Negative Negative 9549650041) RBC/HPF (test code = See_Comment H [Autom ated message] 8842987561) The system [employer] generated this result transmit marcelina reference range : 0 - 3 HPF. The refe rence range was not u sed to interpret th is result as normal/abnormal . WBC/HPF (test code = See_Comment [Autom ated message] 2459251361) The system [employer] generated this result transmit marcelina reference range : 0 - 5 HPF. The refe rence range was not u sed to interpret th is result as normal/abnormal . BACTERIA (test code = Negative Negative 7546626482) MUCOUS (test code = Slight Negative LPF A 2795489210) Lab Interpretation (test Abnormal code = 34140-3) [facility] GLUCOSE (AUTOMATED)2020-06-28 20:59:00 Test Item Value Reference Range Interpretation Comments POCT GLU (test code = 6325351621) 165 mg/dL 70-110 H Lab Interpretation (test code = Abnormal 99694-4) [facility] [id number] 20:58:00 Test Item Value Reference Range Interpretation Comments IONIZED CA (test code = 4.60 mg/dL 4.5-5.3 1189805064) PH SERUM (test code = 5806070122) 7.35-7.45 Lab Interpretation (test code = Normal 30248-4) [facility] (NA, K, CL, CO2, GLUCOSE, BU, CREATININE, CA)2020-06-28 20:48:00 Test Item Value Reference Range Interpretation Comments NA (test code = 137 mmol/L 135-145 8587186814) K (test code = 3.9 mmol/L 3.5-5 3666721688) CL (test code = 102 mmol/L 98-108 4283822133) CO2 TOTAL (test code = 27 mmol/L 23-31 8894319232) AGAP (test code = 2-16 9716502359) BUN (test code = 16 mg/dL 7-23 9526834230) GLUCOSE (test code = 163 mg/dL 70-110 H 0198312879) CREATININE (test code = 0.61 mg/dL 0.6-1.25 6521106109) CALCIUM (test code = 9.1 mg/dL 8.6-10.6 7167294879) eGFR Calculation mL/min/1.73m2 (Non-) (test code = 6113516374) eGFR Calculation mL/min/1.73m2 () (test code = 8989831127) PATTI (test code = PATTI) Association of Glomerular Filtration Rate (GFR) and Staging of Kidney Disease* + --+ --+ ------+| GFR (mL/min/1.73 m2) ?| With Kidney Damage ?| ?Without Kidney Damage+ --------+ --------+ +| ?>90 ?| ?Stage one ?| ? Normal ?+ ---+ ---+ -------+| ?60-89 ?| ?Stage two ?| ? Decreased GFR ? + --+ --+ ------+| ?30-59 ?| ?Stage three ?| ? Stage three ? + --+ --+ ------+| ?15-29 ?| ?Stage four ? | ? Stage four ?+ ---+ ---+ -------+| ?<15 (or dialysis) ? ?| ?Stage five ? | ? Stage five ?+ ---+ ---+ -------+ *Each stage assumes the associated GFR level has been in effect for at least three months. ?Stages 1 to 5, with or without kidney disease, indicate chronic kidney disease. Notes: Determination of stages one and two (with eGFR >59mL/min/1.73 m2) requires estimation of kidney damage for at least three months as defined by structural or functional abnormalities of the kidney, manifested by either:Pathological abnormalities or Markers of kidney damage (including abnormalities in the composition of the blood or urine or abnormalities in imaging tests). Lab Interpretation Abnormal (test code = 09327-3) [facility], [id number] 20:48:00 Test Item Value Reference Range Interpretation Comments MAGNESIUM (test code = 3150418294) 2.4 mg/dL 1.7-2.4 Lab Interpretation (test code = Normal 98031-5) [facility], [id number] 20:48:00 Test Item Value Reference Range Interpretation Comments PHOSPHORUS (test code = 6397356993) 1.7 mg/dL 2.5-5 L Lab Interpretation (test code = Abnormal 86186-7) [facility] with [id number] 20:35:00 Test Item Value Reference Range Interpretation Comments WBC (test code = See_Comment H [Automated 7588-2) message] The system which generated this result transmit marcelina reference range : 4.20 - 10.70 10*3/?L. The reference range was not used to interpret this result as normal/abnormal . RBC (test code = See_Comment L [Automated 803-8) message] The system which generated this result transmit marcelina reference range : 4.26 - 5.52 10*6/?L. The reference range was not used to interpret this result as normal/abnormal . HGB (test code = 11.3 g/dL 12.2-16.4 L 718-7) HCT (test code = 33.6 % 38.4-49.3 L 4544-3) MCV (test code = 91.1 fL 81.7-95.6 787-2) MCH (test code = 30.6 pg 26.1-32.7 785-6) MCHC (test code = 33.6 g/dL 31.2-35 786-4) RDW-SD (test code = 40.6 fL 38.5-51.6 76068-7) RDW-CV (test code = 12.1 % 12.1-15.4 788-0) PLT (test code = See_Comment [Automated 777-3) message] The system which generated this result transmit marcelina reference range : 150 - 328 10*3/ ?L. The reference range was not u sed to interpret th is result as normal/abnormal . MPV (test code = 10.2 fL 9.8-13 98079-7) NRBC/100 WBC (test See_Comment [Automat ed code = 2997496965) message] The system which generated this result transmit marcelina reference range : 0.0 - 10.0 /100 WBCs. The reference range was not used to interpret this result as normal/abnormal . NRBC x10^3 (test code <0.01 See_Comment [Auto mated = 6812442033) message] The system which generated this result transmit marcelina reference range : 10*3/?L. The reference range was not used to interpret this result as normal/abnormal . GRAN MAT (NEUT) % 85.3 % (test code = 770-8) IMM GRAN % (test code 0.30 % = 3351802513) LYMPH % (test code = 4.1 % 736-9) MONO % (test code = 10.1 % 5905-5) EOS % (test code = 0.0 % 713-8) BASO % (test code = 0.2 % 706-2) GRAN MAT x10^3(ANC) 10.52 10*3/uL 1.99-6.95 H (test code = 5837331502) IMM GRAN x10^3 (test 0.04 10*3/uL 0-0.06 code = 8104567366) LYMPH x10^3 (test code 0.50 10*3/uL 1.09-3.23 L = 731-0) MONO x10^3 (test code 1.25 10*3/uL 0.36-1.02 H = 742-7) EOS x10^3 (test code = <0.03 0.06-0.53 L 711-2) BASO x10^3 (test code 0.03 10*3/uL 0.01-0.09 = 704-7) Lab Interpretation Abnormal (test code = 30907-9) [facility]"
[2022-05-14 00:43] LABS: Absolute Lymphocytes (CBC) 1.8 K/uL (0.7-4.9); Hematocrit 30.2 % (39.6-49.0); Lymphocytes % 21.3 % (15.3-44.8); MCV 88.1 fL (80-100); MPV 8.5 fL (7.6-11.3); RBC Red Blood Cell Count 3.43 M/uL (4.33-5.43)
[2022-05-14 01:05] LABS: Magnesium 1.9 mg/dL (1.8-2.4)
[2022-05-14 01:38] LABS: SARS-CoV-2 Antigen Rapid Res Negative (Negative)
--- NOTE | 2022-05-14 01:45 | ER ---
Nurse's Notes [facility] Name: Ranulfo Rascon Age: 56 yrs Sex: Male : 1965 Arrival Date: 05/14/2022 Time: 00:01 Bed 27 Private MD: Diagnosis: Chest pain, unspecified;Anemia, unspecified Presentation: 05/14 00:14 Chief complaint: EMS states: Toned out for chest pain, pt c/o chest pain, dizziness, ll3 and vomiting since 2029, upon arrival pt denies any chest pain or nausea. Coronavirus screen: Vaccine status: Patient reports receiving the 2nd dose of the covid vaccine. nausea, vomiting. Ebola Screen: No symptoms or risks identified at this time. Initial Sepsis Screen: Does the patient meet any 2 criteria? No. Patient's initial sepsis screen is negative. Does the patient have a suspected source of infection? No. Patient's initial sepsis screen is negative. Risk Assessment: Do you want to hurt yourself or someone else? Patient reports no desire to harm self or others. Onset of symptoms was May 13, 2022 at 20:30. Care prior to arrival: Medication(s) given: ASA, 81 mg, x 4, Normal saline infusion, 600 ml Nitroglycerin, 0.4 mg SL IV initiated. 20 GA, in the left forearm, Glucose check: 227. 00:14 Method Of Arrival: EMS: [facility] 00:14 Acuity: DANIEL 3 ll3 Triage Assessment: 00:20 General: Appears in no apparent distress. comfortable, Behavior is calm, cooperative. ll3 Pain: Denies pain. 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 Respiratory: Respiratory effort is even, unlabored, Respiratory pattern is regular, symmetrical. GI: Abdomen is round non-distended, Reports Vomiting PIPE FITTER MARINE Patient currently denies nausea. Derm: Skin is pink, warm \T\ dry. 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 - Social history:: Smoking status: Patient denies any tobacco usage or history of. Screenin:24 Abuse screen: Denies threats or abuse. Denies injuries from another. Nutritional ll3 screening: No deficits noted. Tuberculosis screening: No symptoms or risk factors identified. 02:51 Fall Risk No fall in past 12 months (0 pts). Secondary diagnosis (15 points) impaired ll3 mobility, IV access (20 points). Ambulatory Aid- None/Bed Rest/Nurse Assist (0 pts). Gait- Impaired (20 pts.). Mental Status- Oriented to own ability (0 pts). Total Sorto Fall Scale indicates High Risk Score (45 or more points). Fall prevention measures have been instituted. Side Rails Up X 2 Placed Close to Nursing Station. Assessment: 00:24 General: See triage assessment. Pain: Denies pain. ll3 00:24 Pain: Pain does not radiate. Pain began. ll3 01:30 Reassessment: No changes from previously documented assessment. Patient and/or family ll3 updated on plan of care and expected duration. Pain level reassessed. Patient is alert, oriented x 3, equal unlabored respirations, skin warm/dry/pink. Vital Signs: 00:14 BP 129 / 75; Pulse 89; Resp 15; Temp 97.5(O); Pulse Ox 99% on R/A; Weight 72.57 kg (R); ll3 Height 5 ft. 9 in. (175.26 cm) (R); Pain 0/10; 02:15 BP 123 / 74; Pulse 92; Resp 18; Pulse Ox 100% on R/A; ll3 03:25 BP 115 / 77; Pulse 94; Resp 17; Pulse Ox 98% on R/A; ll3 00:14 Body Mass Index 23.63 (72.57 kg, 175.26 cm) ll3 ED Course: 00:01 Patient arrived in ED. bb 00:01 Timmy Bower DO is Attending Physician. ms3 00:20 Triage completed. ll3 00:20 Arm band placed on Patient placed in an exam room, on a stretcher, on pre coder, ll3 on pulse oximetry. 00:24 Patient has correct armband on for positive identification. Placed in gown. Bed in low ll3 position. Call light in reach. Side rails up X 1. Client placed on continuous cardiac and pulse oximetry monitoring. NIBP monitoring applied. 00:24 Patient maintains SpO2 saturation greater than 95% on room air. ll3 00:42 XRAY Chest (1 view) In Process Unspecified. EDMS 01:43 Maycol Serrano MD is Hospitalizing Provider. ms3 02:51 No provider procedures requiring assistance completed. ll3 06:35 Patient admitted, IV remains in place. ll3 19:18 Gem Camp, RN is Primary Nurse. ke1 Administered Medications: No medications were administered Medication: 02:51 VIS not applicable for this client. ll3 Outcome: 01:45 Decision to Hospitalize by Provider. ms3 06:35 Admitted to ER Hold. Please see [facility] for further documentation. ll3 06:35 Condition: stable 06:35 Instructed on the need for admit. 05/15 05:17 Patient left the ED. bb Signatures: Dispatcher [employer] EDMica Hunter RN RN Timmy Batista DO DO ms3 Daysi Gardner RN RN ll3 Gem Camp, KAREY RN ke1 Corrections: (The following items were deleted from the chart) 05/14 02:50 02:50 Reassessment: No changes from previously documented assessment. Patient and/or ll3 family updated on plan of care and expected duration. Pain level reassessed. Patient is alert, oriented x 3, equal unlabored respirations, skin warm/dry/pink. ll3
--- NOTE | 2022-05-14 01:45 | EDPHYS ---
Physician Documentation [facility] Name: Ranulfo Rascon Age: 56 yrs Sex: Male : 1965 Arrival Date: 05/14/2022 Time: 00:01 Bed 27 Private MD: ED Physician Timmy Bower HPI: 05/14 00:50 This 56 yrs old Male presents to ER via EMS with complaints of Chest Pain. ms3 00:50 The patient or guardian reports chest pain that is located primarily in the substernal ms3 area. Onset: just prior to arrival. The pain does not radiate. Associated signs and symptoms: Pertinent positives: None. Pertinent negatives: None. The chest pain is described as a pressure. Duration: The patient or guardian reports a single episode. Modifying factors: The symptoms are alleviated by ASA, 324 mg NTG, X1. Severity of pain: At its worst the pain was severe just prior to arrival, in the emergency department the pain has resolved. EMS care prior to arrival includes: aspirin, IV fluids, nitroglycerin. 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 - Social history:: Smoking status: Patient denies any tobacco usage or history of. ROS: 00:50 Constitutional: Negative for fever, and chills. Eyes: Negative for injury, pain, ms3 redness, and discharge, Neck: Negative for injury, pain, and swelling, Respiratory: Negative for shortness of breath, cough, wheezing, and pleuritic chest pain, Abdomen/GI: Negative for abdominal pain, nausea, vomiting, diarrhea, and constipation, MS/Extremity: Negative for injury and deformity, Skin: Negative for injury, rash, and discoloration, Neuro: Negative for headache, weakness, numbness, tingling. 00:50 Cardiovascular: Positive for chest pain. 00:50 All other systems are negative. Exam: 00:15 ECG was reviewed by the Attending Physician. ms3 00:50 Constitutional: This is a well developed, well nourished patient who is awake, alert, ms3 and in no acute distress. Head/Face: Normocephalic, atraumatic. Eyes: Pupils equal round and reactive to light, extra-ocular motions intact. Lids and lashes normal. Conjunctiva and sclera are non-icteric and not injected. Periorbital areas with no swelling, redness, or edema. Neck: Trachea midline, no cervical lymphadenopathy. Supple, full range of motion without nuchal rigidity, or vertebral point tenderness. No Meningismus. Chest/axilla: Normal chest wall appearance and motion. Nontender with no deformity. Back: No spinal tenderness. No costovertebral tenderness. Full range of motion. Skin: Warm, dry with normal turgor. Normal color with no rashes, no lesions, and no evidence of cellulitis. MS/ Extremity: Pulses equal, no cyanosis. Neurovascular intact. Full, normal range of motion. 00:50 Cardiovascular: Regular rate and rhythm with a normal S1 and S2. No gallops, murmurs, or rubs. Normal PMI, no JVD. No pulse deficits. Respiratory: Lungs have equal breath sounds bilaterally, clear to auscultation and percussion. No rales, rhonchi or wheezes noted. No increased work of breathing, no retractions or nasal flaring. Abdomen/GI: Soft, non-tender, with normal bowel sounds. No distension or tympany. No guarding or rebound. No evidence of tenderness throughout. Vital Signs: 00:14 BP 129 / 75; Pulse 89; Resp 15; Temp 97.5(O); Pulse Ox 99% on R/A; Weight 72.57 kg (R); ll3 Height 5 ft. 9 in. (175.26 cm) (R); Pain 0/10; 02:15 BP 123 / 74; Pulse 92; Resp 18; Pulse Ox 100% on R/A; ll3 03:25 BP 115 / 77; Pulse 94; Resp 17; Pulse Ox 98% on R/A; ll3 00:14 Body Mass Index 23.63 (72.57 kg, 175.26 cm) ll3 MDM: 00:01 Patient medically screened. ms3 00:50 Differential diagnosis: abnormal EKG, acute myocardial infarction, coronary artery ms3 disease. HEART Score: History: Slightly Suspicious (0), ECG: Non specific repolarization disturbance / LBTB / PM (1), Age: > 45 and < 65 years (1), Risk Factors: 1 or 2 risk factors (1), [DM]. The patient was not given aspirin in the Emergency Department. Administered by EMS. Data reviewed: vital signs, nurses notes, lab test result(s), EKG, radiologic studies. 05/14 00:02 Order name: Basic Metabolic Panel; Complete Time: 01:08 ms3 05/14 00:02 Order name: CBC with Diff; Complete Time: 01:24 ms3 05/14 00:02 Order name: Magnesium; Complete Time: 01:24 ms3 05/14 00:02 Order name: NT PRO-BNP; Complete Time: 01:24 ms3 05/14 00:02 Order name: Troponin HS; Complete Time: 01:24 ms3 05/14 00:42 Order name: SARS RAPID; Complete Time: 01:39 ms3 05/14 06:44 Order name: Basic Metabolic Panel; Complete Time: 20:34 EDMS 05/14 06:44 Order name: Troponin High Sensitivity; Complete Time: 20:34 EDMS 05/14 06:44 Order name: Lipid Profile; Complete Time: 20:34 EDMS 05/14 07:19 Order name: Hemoglobin A1c; Complete Time: 20:34 EDMS 05/14 08:04 Order name: Glucose, Ancillary Testing; Complete Time: 20:34 EDMS 05/14 11:07 Order name: Troponin High Sensitivity; Complete Time: 20:34 EDMS 05/14 12:00 Order name: Glucose, Ancillary Testing; Complete Time: 20:34 EDMS 05/14 17:02 Order name: Glucose, Ancillary Testing; Complete Time: 20:34 EDMS 05/14 00:02 Order name: XRAY Chest (1 view) ms3 05/14 00:02 Order name: EKG; Complete Time: 00:03 ms3 05/14 00:02 Order name: Cardiac monitoring; Complete Time: 00:25 ms3 05/14 00:02 Order name: EKG - Nurse/Tech; Complete Time: 00:25 ms3 05/14 00:02 Order name: IV Saline Lock; Complete Time: 00:34 ms3 05/14 00:02 Order name: Labs collected and sent; Complete Time: 00:34 ms3 05/14 00:02 Order name: O2 Per Protocol; Complete Time: 00:25 ms3 05/14 00:02 Order name: O2 Sat Monitoring; Complete Time: 00:25 ms3 05/14 20:24 Order name: Urinalysis; Complete Time: 20:34 EDMS 05/14 20:33 Order name: Glucose, Ancillary Testing; Complete Time: 20:34 EDMS 05/15 03:26 Order name: Basic Metabolic Panel EDMS EC:15 Rate is 89 beats/min. Rhythm is regular. QRS [place] is Normal. RI interval is normal. QRS ms3 interval is normal. Clinical impression: NSR w/ Non-specific ST/T Changes. Interpreted by me. Reviewed by me. Administered Medications: No medications were administered Disposition Summary: 05/14/22 01:45 Hospitalization Ordered Hospitalization Status: Observation ms3 Provider: Maycol Serrano ms3 Condition: Stable ms3 Problem: new ms3 Symptoms: are unchanged ms3 Bed/Room Type: Standard ms3 Location: Telemetry/MedSurg (observation)(05/15/22 03:09) cg Room Assignment: [facility](05/15/22 03:09) cg Diagnosis - Chest pain, unspecified ms3 - Anemia, unspecified ms3 Forms: - Medication Reconciliation Form ms3 - SBAR form ms3 Signatures: Dispatcher [employer] EDOR Hayder Khan, DEBT AND BUDGET COUNSELOR-C DEBT AND BUDGET COUNSELOR-Cla1 Cielo Maddox, RN RN cg Timmy Bower DO DO ms3 Daysi Gardner, RN RN ll3 Corrections: (The following items were deleted from the chart) 02: 01:45 Telemetry/MedSurg (observation) ms3 cg 02: 01:45 ms3 cg 05/15 03:09 05/14 02:22 [facility] ER HOLD cg cg 05/15 03:09 05/14 02:22 ERHOLD- cg cg
--- NOTE | 2022-05-14 02:16 | P.HP ---
Certification for Inpatient Patient admitted to: Observation With expected LOS: <2 Midnights Patient will require the following post-hospital care: None Practitioner: I am a practitioner with admitting privileges, knowledge of patient current condition, hospital course, and medical plan of care. 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 He was laying in bed when he began to experience a pressure- like substernal chest pain nonradiating with mild shortness of breath associated. He was evaluated in the emergency department. Labs are for initial high-sensitivity troponin of 10.0 BNP 244 patient has wound VAC to the left lower extremity that has been there for about 6 months he reports he has been on IV antibiotics through PICC line for the past 4 weeks which he completed yesterday. Ed provider wishes to admit under observation for ACS R/O - Past Medical/Surgical History Diabetic: Yes -: Diabetes mellitus type 2non insulin-dependent -: Hypertension -: Hyperlipidemia -: Left BKA now with wound vac Psychosocial/ Personal History: Patient is disabled, lives at home with his family - Family History Father -: Diabetes Mother -: Diabetes - Social History Smoking Status: Never smoker Alcohol use: Yes CD- Drugs: No Caffeine use: Yes Place of Residence: Home <Hayder Khan - Last Filed: 05/14/22 02:10> Date of Service: 05/14/22 <Maycol Serrano - Last Filed: 05/14/22 09:52> Allergies No Known Allergies Allergy (Verified 01/06/22 02:06) Home Medications: Aspirin [Aspirin EC 81 MG] 81 mg PO DAILY #30 tablet. 01/06/22 RX: Atorvastatin Calcium [Lipitor] 40 mg PO BEDTIME #30 tab 01/06/22 Review of Systems 10-point ROS is otherwise unremarkable Respiratory: Shortness of Breath Cardiovascular: Chest Pain <Hayder Khan - Last Filed: 05/14/22 02:10> Physical Examination - Physical Exam General: Alert, In no apparent distress, Oriented x3 HEENT: Atraumatic, PERRLA, Mucous membr. moist/pink, EOMI, Sclerae nonicteric Neck: Supple, 2+ carotid pulse no bruit, No LAD, Without JVD or thyroid abnormality Respiratory: Clear to auscultation bilaterally, Normal air movement Cardiovascular: Regular rate/rhythm, Normal S1 S2 Gastrointestinal: Normal bowel sounds, No tenderness Musculoskeletal: No tenderness, Other (Left BKA with wound vac in place, RUE PICC) Integumentary: No rashes Neurological: Normal speech, Normal strength at 5/5 x4 extr, Normal tone, Normal affect - Studies Laboratory Data (last 24 hrs) 05/14/22 00:31: WBC 8.20, Hgb 10.1 L, Hct 30.2 L, Plt Count 174 05/14/22 00:31: Sodium 133 L, Potassium 4.0, BUN 22 H, Creatinine 0.81, Glucose 166 H, Magnesium 1.9 <Hayder Khan - Last Filed: 05/14/22 02:10> - Studies Laboratory Data (last 24 hrs) 05/14/22 00:31: WBC 8.20, Hgb 10.1 L, Hct 30.2 L, Plt Count 174 05/14/22 00:31: Sodium 133 L, Potassium 4.0, BUN 22 H, Creatinine 0.81, Glucose 166 H, Magnesium 1.9 <Maycol Serrano - Last Filed: 05/14/22 09:52> Assessment and Plan - Plan Assessment: Chest pain rule out ACS Diabetes mellitus type [id number]-[id number] Hyperlipidemia S/P left BKA with wound VAC in place-recently completed 4 weeks of IV ABX on 05/13/22 Plan: Chest pain rule out ACS: And troponins, cardiology consult. Aspirin, statin, beta-sasha therapy. Patient denies any previous cardiac evaluation. Diabetes mellitus type 8yek-phvqhok-joljhnvag: ACHS Accu-Chek, sliding scale insulin. A1c in the morning. Hyperlipidemia: Continue statin. S/P left BKA with wound VAC in place-recently completed 4 weeks of IV ABX on 05/13/22: Noted, stable. DVT PPX: Lovenox full Code status: Discharge Plan: Home Plan to discharge in: 24 Hours - Advance Directives Does patient have a Living Will: No Does patient have a Durable POA for Healthcare: No - Code Status/Comfort Care Code Status Assessed: Yes (Full code) Critical Care: No Time Spent Managing Pts Care (In Minutes): 70 <Hayder Khan - Last Filed: 05/14/22 02:10> Physician Review: Patient Assessed, Agree with Above Assessment and Plan <Maycol Serrano - Last Filed: 05/14/22 09:52>
[2022-05-14] MEDS ORDERED: ONDANSETRON 4 MG/2 ML VIAL IV PRN (04:17)
[2022-05-14 04:27] VITALS: BMI 23.6
[2022-05-14] MEDS: METOPROLOL TAR 25 MG TAB PO SCH ×2 (06:00→17:05)
[2022-05-14] MEDS ORDERED: METOPROLOL TAR 25 MG TAB ONE ×2 (06:21→17:03)
[2022-05-14 06:43] LABS: Potassium 4.3 mmol/L (3.5-5.1)
[2022-05-14] MEDS ORDERED: ONDANSETRON 4 MG/2 ML VIAL ONE (06:52)
[2022-05-14] MEDS: INSULIN -REGULAR HUMAN 50 UNIT/0.5 ML ML SQ SCH ×4 (07:30→21:00)
[2022-05-14] MEDS ORDERED: ENOXAPARIN 40 MG/0.4 ML SQ ONE (07:41)
[2022-05-14] MEDS ORDERED: ASPIRIN EC 81 MG TAB PO ONE (07:41)
[2022-05-14] MEDS: ENOXAPARIN 40 MG/0.4 ML SQ SCH (08:23)
[2022-05-14] MEDS: ASPIRIN EC 81 MG TAB PO SCH (08:23)
[2022-05-14 20:24] LABS: Specific Gravity 1.009 (1.005-1.030); Urine Bilirubin NEGATIVE (Negative); Urine Blood 1+ (Negative); Urine Clarity Clear (Clear); Urine Color Light-Yellow (Yellow); Urine Glucose 3+ (Negative); Urine Mucus Slight /HPF (None Seen); Urine Protein 1+ (Negative); Urine RBC <5 /HPF (None Seen); Urine Urobilinogen Normal (Normal); Urine pH 5.5 (5.0-7.0)
[2022-05-14] MEDS ORDERED: ATORVASTATIN 40 MG TAB PO SCH (21:00)
[2022-05-14] MEDS ORDERED: INSULIN -REGULAR HUMAN 50 UNIT/0.5 ML ML ONE (21:37)
[2022-05-14] MEDS ORDERED: ATORVASTATIN 20 MG TAB ONE (21:47)
[2022-05-15] MEDS ORDERED: METOPROLOL TAR 50 MG TAB ONE (04:30)
[2022-05-15] MEDS: METOPROLOL TAR 25 MG TAB PO SCH (06:00)
[2022-05-15] MEDS: INSULIN -REGULAR HUMAN 50 UNIT/0.5 ML ML SQ SCH ×3 (07:30→16:13)
[2022-05-15] MEDS: ASPIRIN EC 81 MG TAB PO SCH (08:33)
[2022-05-15] MEDS: ENOXAPARIN 40 MG/0.4 ML SQ SCH (08:34)
[2022-05-15 09:10] VITALS: O2SAT 99
--- NOTE | 2022-05-15 10:37 | P.DS ---
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 He was laying in bed when he began to experience a pressure- like substernal chest pain nonradiating with mild shortness of breath associated. He was evaluated in the emergency department. Labs are for initial high-sensitivity troponin of 10.0 BNP 244 patient has wound VAC to the left lower extremity that has been there for about 6 months he reports he has been on IV antibiotics through PICC line for the past 4 weeks which he completed yesterday. Hospital Course: Patient troponins negative. Chest pain resolved. Patient is clinically doing well. Patient will follow-up as an outpatient with cardiology. At this time, patient is stable for discharge home. Vital Signs/Physical Exam: Temp Pulse Resp BP Pulse Ox 97.7 F 71 16 128/73 99 05/15/22 08:00 05/15/22 08:00 05/15/22 08:00 05/15/22 08:00 05/15/22 08:00 General: Alert, In no apparent distress, Oriented x3 Laboratory Data at Discharge: WBC 8.20 K/uL (4.3-10.9) 05/14/22 00:31 Hgb 10.1 g/dL (13.6-17.9) L 05/14/22 00:31 Hct 30.2 % (39.6-49.0) L 05/14/22 00:31 Plt Count 174 K/uL (152-406) 05/14/22 00:31 Sodium 134 mmol/L (136-145) L 05/15/22 02:30 Potassium 4.0 mmol/L (3.5-5.1) 05/15/22 02:30 BUN 22 mg/dL (7-18) H 05/15/22 02:30 Creatinine 0.90 mg/dL (0.55-1.3) 05/15/22 02:30 Glucose 153 mg/dL (74-106) H 05/15/22 02:30 Magnesium 1.9 mg/dL (1.8-2.4) 05/14/22 00:31 Triglycerides 171 mg/dL (<150) H 05/14/22 06:05 Cholesterol 134 mg/dL (<200) 05/14/22 06:05 HDL Cholesterol 50 mg/dL (40-60) 05/14/22 06:05 Cholesterol/HDL Ratio 2.68 05/14/22 06:05 Home Medications: Atorvastatin Calcium [Lipitor] 40 mg PO BEDTIME #30 tab 01/06/22 Metformin HCl 1 tab PO BID 05/14/22 Aspirin [Aspirin EC 81 MG] 81 mg PO DAILY #30 05/15/22 Metoprolol Tartrate [Lopressor*] 25 mg PO BID 6AM 6PM #60 tab 05/15/22 New Medications: Aspirin [Aspirin EC 81 MG] 81 mg PO DAILY #30 Metoprolol Tartrate [Lopressor*] 25 mg PO BID 6AM 6PM #60 tab Physician Discharge Instructions: -DC IV and DC home -Follow-up with PCP in 1 to 2 weeks -Follow-up with Cardiology in 1 to 2 weeks -Please call Dr. Glaser at [phone] if any questions regarding hospital stay -Please call nursing station at [phone] if any nursing or medication questions -Return to the emergency room if symptoms worsen Diet: AHA Activity: Fall precautions Followup: Vernon Delcid MD [ACTIVE - CAN ADMIT] - NONE,NONE [Primary Care Provider] - Time spent managing pt's care (in minutes): 35
--- NOTE | 2022-05-15 12:09 | RAD REPORT ---
EXAM DESCRIPTION: RAD - Chest Single View - 05/14/2022 12:40 am CLINICAL HISTORY: 6 years Male, CHEST PAIN COMPARISON: Chest radiograph dated 01/05/2022 IMPRESSION: Right upper extremity PICC terminating at the cavoatrial junction. No focal consolidation. No pleural effusion. No pneumothorax. Cardiomediastinal silhouette is within normal limits. No acute osseous abnormality. Electronically signed by: Bert Capellan DO 05/14/2022 12:56 AM LABEL CODER Due to temporary technical issues with the PACS/Fluency reporting system, reports are being signed by the in house radiologists without review as a courtesy to insure prompt reporting. The interpreting radiologist is fully responsible for the content of the report.
--- NOTE | 2022-05-15 14:30 | CON ---
Date of Consultation: 05/14/2022 Reason For Consultation: Chest pain. History Of Present Illness: This is a 56-year-old male with past medical history of diabetes, hypert ension, dyslipidemia, vejzf-nxp-kcps amputation on the left side, presented with chest pain at rest. Denies having activity-related chest pain. The patient does not have any cardiac history. Pain has resolved. That was short lived, and not triggered by any triggering factors. Past Medical History: As outlined above in the HPI. Medications: Refer to reconciliation sheet for detailed list. Allergies: NO KNOWN DRUG ALLERGIES. Family History: No premature coronary artery disease or cancer. Social History: He does not smoke or drink. Does not use any drugs. Review of Systems: All systems reviewed and they were negative except what mentioned in HPI. Physical Examination: Vital Signs: Reviewed. Head and Neck: Pupils are equal, reactive to light. Intact eye movements. No JVD. No cervical lym phadenopathy. Neck is supple. Thyroid is not enlarged. Lungs: Clear to auscultation bilaterally. No rhonchi, wheezing, or crackles. No accessory muscle u se. Heart: Regular rate and rhythm. No extra sounds. Abdomen: Soft, nontender. Bowel sounds positive. No organomegaly. No masses or hernia. No rigidi ty or rebound. Extremities: No edema, clubbing, or cyanosis. Intact pulses. Skin: No rash. Neurologic: Alert, awake, oriented x3. No acute focal deficits appreciated. Investigations: Three troponins were negative. BUN is 18, creatinine 0.72. Assessment And Recommendations: 1.Chest pain. No specific EKG abnormalities. Troponins are negative and the pain is atypical. Fro m Cardiology standpoint, the patient can be released and we will plan for outpatient stress test and an echocardiogram. 2.Hypertension. Blood pressure appears to be controlled. Continue with home medications. 3.Dyslipidemia, on statin, to be continued. SR/MODL Voice ID: [id number] Report ID: [id number]
--- NOTE | 2022-05-15 14:31 | ECHO ---
HEIGHT: 5 ft 9 in WEIGHT: 160 lb 0 oz DATE OF STUDY: 05/15/[address]: Maycol Serrano MD 2-DIMENSIONAL: YES M.MODE: YES DOPPLER: YES COLOR FLOW: YES TDS: NO PORTABLE: YES DEFINITY: NO BUBBLE STUDY: NO DIAGNOSIS: CHEST PAIN CARDIAC HISTORY: CATHERIZATION: YES SURGERY: NO PROSTHETIC VALVE: NO PACEMAKER: NO MEASUREMENTS (cm) DIASTOLIC (NORMALS) SYSTOLIC (NORMALS) IVSd 1.3 (0.6-1.2) LA Diam 2.6 (1.9-4.0) LVEF 61% LVIDd 4.1 (3.5-5.7) LVIDs 2.8 (2.0-3.5) %FS 32% LVPWd 1.3 (0.6-1.2) Ao Diam 2.9 (2.0-3.7) 2 DIMENSIONAL ASSESSMENT: RIGHT ATRIUM: NORMAL LEFT ATRIUM: NORMAL RIGHT VENTRICLE: NORMAL LEFT VENTRICLE: LEFT VENTRICULAR HYPERTROPHY TRICUSPID VALVE: NORMAL MITRAL VALVE: NORMAL PULMONIC VALVE: NORMAL AORTIC VALVE: NORMAL PERICARDIAL EFFUSION: NONE AORTIC ROOT: NORMAL LEFT VENTRICULAR WALL MOTION: NORMAL. DOPPLER/COLOR FLOW: NORMAL. COMMENTS: 1. NORMAL LEFT VENTRICULAR EJECTION FRACTION 55-60%. 2. NORMAL WALL MOTION. 3. MILD CONCENTRIC LEFT VENTRICULAR HYPERTROPHY. TECHNOLOGIST: BRANDEN MAUTTE
--- NOTE | 2022-05-15 15:10 | EKG ---
Test Date: 2022-05-14 Test Time: 00:15:37 Building Specialist: WARD MEASUREMENT RESULTS: Intervals: Rate: 89 [place]: 244 QRSD: 90 QT: 392 QTc: 476 [place]: P: 57 [place]: 244 QRS: 75 T: 56 INTERPRETIVE STATEMENTS: Sinus rhythm with 1st degree AV block Cannot rule out Anterior infarct, age undetermined Abnormal ECG Compared to ECG 01/05/2022 20:27:25 Myocardial infarct finding now present Electronically Signed On 05-15-22 15:08:45 [employer] SUPERVIS[employer] by David Jeronimo
[2022-05-15 16:09] VITALS: BP 141/78; TEMP 98
--- NOTE | 2022-05-15 19:13 | PN ---
Date of Progress Note: 05/15/2022 Subjective: Seen by bedside, doing clinically well. No chest pain, shortness of breath, orthopnea, or cough. No nausea, vomiting, or diarrhea. All other systems reviewed and are negative. Physical Examination: Vital Signs: Reviewed. Head And Neck: Pupils are equal and reactive to light. Intact eye movements. No JVD. No cervical lymphadenopathy. Neck is supple. Thyroid is not enlarged. Lungs: Clear to auscultation bilaterally. Heart: Regular rate and rhythm. No extra sounds. Abdomen: Soft, nontender. Bowel sounds positive. No organomegaly. No masses or hernia. No rigidi ty or rebound. Extremities: There is no edema, clubbing, or cyanosis. Intact pulses. Skin: No rashes. Neurologic: Alert, awake, and oriented x3. No focal deficits appreciated. Lymph Nodes: No cervical or axillary lymphadenopathy. Investigations: Labs reviewed. Assessment And Recommendation: 1.Chest pain, atypical with negative troponins. No further chest pain. Patient can be released. F antonilow up as an outpatient with nuclear stress test done and an echo. 2.Dyslipidemia. Continue Lipitor 40 mg at bedtime. SR/MODL Voice ID: [id number] Report ID: [id number]
== END 2022-05-15 16:45 | disposition home or self-care (01) ==
LOC: ER 23:49 → ERHOLD 05-14 02:11 → 4TH 05-15 04:28
PROVIDERS: ADMIT Internal Medicine; ATTEND Hospitalist
DX: R07.9 Chest pain, unspecified (principal); E11.9 Type 2 diabetes mellitus without complications; E78.5 Hyperlipidemia, unspecified; Z89.512 Acquired absence of left leg below knee
CPT/HCPCS: 93005; 93306; 85025; 81001; 80048 ×3; 36415 ×2; 83735; 80061; 82947 ×7; 83036; 84484 ×3; 83880; 71045; 99285; 87811; J1815 ×3; J1650 ×2; J2405; G0378 ×3